=== PATIENT | male | born 1955 | race Caucasian/White ===

== ENCOUNTER 2016-08-27 08:12 | Outpatient (CLI) | payer MEDICARE, OTHER ==
[~2016-08-27] VITALS: Ht 182.9 cm; Wt 117.5 kg
[~2016-08-27 08:12] MED LIST: ALLO100T PO; ASPI-482 PO; CALC667C6 PO; CARV25TA2 PO; CHOL10003 PO; CLON0.2T PO; DOXA8TAB59 PO; FOLI0.8T3 PO; HYDR-2678 PO; HYDR100T24 PO; HYDR25TA PO; INSU100I17 SQ; INSU100I27 SQ; PRAV10TA2 PO; SODI650T PO; TAMS0.4C2 PO
[2016-08-27 08:35] VITALS: BP 152/74
[2016-08-27] MEDS ORDERED: IODIXANOL 320 MG/ML 100 ML VIAL. ONE (08:53)
[2016-08-27] MEDS ORDERED: LIDOCAINE 1% / SOD BICARB 8.4% 20 ML VIAL. IJ ONE (08:53)
[2016-08-27] MEDS ORDERED: IODIXANOL 320MG/ML 50ML VIAL. ONE (08:53)
[2016-08-27] MEDS ORDERED: ZOLP10TA4 PO (09:04)
[2016-08-27] MEDS ORDERED: FURO40TA4 PO (09:04)
[2016-08-27] MEDS ORDERED: CHOL10003 PO (09:04)
[2016-08-27] MEDS ORDERED: INSU100I27 SQ (09:04)
[2016-08-27] MEDS ORDERED: CARV25TA2 PO (09:04)
[2016-08-27] MEDS ORDERED: LISI10TA2 PO (09:04)
[2016-08-27] MEDS ORDERED: HYDR-2762 PO (09:04)
[2016-08-27] MEDS ORDERED: DOXA8TAB59 PO (09:04)
[2016-08-27] MEDS ORDERED: FLUT50DI IH (09:04)
[2016-08-27] MEDS ORDERED: FERR324T5 PO (09:04)
[2016-08-27] MEDS ORDERED: GABA-585 PO (09:04)
[2016-08-27] MEDS ORDERED: PANT40TA5 PO (09:07)
[2016-08-27] MEDS ORDERED: POTA20TA82 PO (09:07)
[2016-08-27] MEDS ORDERED: IODIXANOL 320 MG/ML 100 ML VIAL. IV ONE (09:15)
[2016-08-27] MEDS ORDERED: CONTRAST GIVEN MC PRN (09:15)
[2016-08-27 09:36] VITALS: BP 148/78
--- NOTE | 2016-08-27 09:40 | PDOC1 ---
History and Physical Date of Procedure Date of Admission 08/27/16 Procedure Procedure PDC check Indication Indication ESRD. Poor drainage from PDC Past Medical History Past Medical History See Nursing Pre Procedure PMH Past Surgical History Past Surgical History See Nursing Pre procedure PSH Current Medications Current Medications Current Medications Lidocaine/Sodium Bicarbonate (Buffered Lidocaine 1%) 20 ml STK-MED ONCE IJ ; Start 08/27/16 at 08:53; Stop 08/27/16 at 08:54; Status DC Iodixanol 50 ml 50 ml STK-MED ONCE .ROUTE ; Start 08/27/16 at 08:53; Stop at 08:54; Status DC Heparin Sodium/ Sodium Chloride 500 ml @ As Directed STK-MED ONCE .ROUTE ; Start 08/27/16 at 08:53; Stop 08/27/16 at 08:54; Status DC Iodixanol (Visipaque 320) 100 ml STK-MED ONCE .ROUTE ; Start 08/27/16 at 08:53; Stop 08/27/16 at 08:54; Status DC Heparin Sodium/ Sodium Chloride 1,000 unit 1X ONCE IV Last administered on 08/27 09:21; Start 08/27/16 at 09:15; Stop 08/27/16 at 09:16; Status DC Iodixanol (Visipaque 320) 100 ml 1X ONCE IV Last administered on 08/27/16 09: 22; Start 08/27/16 at 09:15; Stop 08/27/16 at 09:16; Status DC Info (Do NOT chart on this entry -- for MONITORING) 1 each PRN DAILY PRN MC SEE COMMENTS; Start 08/27/16 at 09:15; Stop 08/29/16 at 09:14 Active Scripts Active Reported Potassium Chloride 20 Meq Tablet.er 20 Meq PO DAILY Pantoprazole Sodium 40 Mg Tablet.dr 40 Mg PO DAILY Lisinopril 10 Mg Tablet 0.5 Tab PO DAILY Zolpidem Tartrate 10 Mg Tablet 1 Tab PO QHS Levemir Flextouch (Insulin Detemir) 100 Unit/1 Ml Insuln.pen 80 Unit SQ HS Gabapentin 100 Mg Capsule 300 Mg PO HS Furosemide 40 Mg Tablet 2 Tab PO BID Flovent 50MCG Diskus (Fluticasone Propionate) 50 Mcg Disk.w.dev 50 Mcg IH DAILY Hydrocodone-Apap 7.5-325 (Hydrocodone Bit/Acetaminophen) 1 Each Tablet 1 Tab PO PRN Q6HRS PRN Ferrous Sulfate 324 Mg Tablet.dr 324 Mg PO BID Doxazosin Mesylate 8 Mg Tablet 0.5 Tab PO HS Vitamin D3 (Cholecalciferol (Vitamin D3)) 1,000 Unit Tablet 1 Tab PO DAILY Carvedilol 25 Mg Tablet 1 Tab PO BID Novolog Flexpen (Insulin Aspart) 100 Unit/1 Ml Insuln.pen 16 Unit SQ TIDBFRMEAL Sodium Bicarbonate 650 Mg Tablet 650 Mg PO TIDWMEALS Aspir 81 (Aspirin) 81 Mg Tablet.dr 81 Mg PO DAILY Pravastatin Sodium 10 Mg Tablet 10 Mg PO HS Allopurinol 100 Mg Tablet 100 Mg PO DAILY Allergies Allergies: Coded Allergies: Penicillins (Verified Allergy, Severe, HIVES AND ITCHING, 02/06/15) zinc (Verified Allergy, Severe, HIVES AND ITCHING, 02/06/15) Latex, Natural Rubber (Verified Allergy, Intermediate, FOREMAN AND IRRITATES SKIN, 02/06/15) adhesive (Verified Allergy, Intermediate, FOREMAN AND IRRITATES SKIN, ) PAPER TAPE IS OK amlodipine (Verified Allergy, Unknown, 08/27/16) capsaicin (Verified Allergy, Unknown, 08/27/16) clindamycin (Verified Allergy, Unknown, 08/27/16) insulin glargine (Verified Allergy, Unknown, 08/27/16) reports that it has zinc in it magnesium (Verified Allergy, Unknown, 08/27/16) Physical Exam Vital Signs Vital Signs Date Time Temp Pulse Resp B/P Pulse Ox O2 Delivery O2 Flow Rate FiO2 08/27/16 09:36 74 19 148/78 95 Room Air 08/27/16 08:35 98.3 98.3 Lungs: Clear to auscultation Heart: Regular rate Psych/Mental Status: Mental status NL Assessment Assessment ESRD. Poor drainage from PDC Problems: Plan Plan PDC check/injection +/- guidewire manipulation DORIE MUKHERJEE MD Aug 27, 2016 09:40
--- NOTE | 2016-08-27 09:45 | PDOC ---
Exam Director Commercial Sales Director Commercial Sales [employer]en Fuel Conversion Technician Fuel Conversion Technician B Cates Pre-Procedure Diagnosis Pre-Procedure Diagnosis ESRD. Poor drainage from PDC Post-Procedure Diagnosis Post-Procedure Diagnosis Same. Patent PDC, coiled within left hemipelvis, lateral to recto-vesical space. Procedure Performed Procedure Performed PDC check/injection. Guidewire repositioning of PDC loop into recto-vesical space. Type of Anesthesia Type of Anesthesia None Condition of Patient Condition of Patient Stable. No apparent complication. Disposition Disposition Home from [facility]. F/u with Renal. OK to use PDC. DORIE MUKHERJEE MD Aug 27, 2016 09:45
--- NOTE | 2016-08-27 16:07 | RAD ---
Fluoroscopy guided peritoneal dialysis catheter check/injection/guidewire manipulation Indication: 60-year-old male with end stage renal disease, and with suboptimal drainage from his indwelling peritoneal dialysis catheter. Fluoroscopy time: 2.7 minutes. A total of 4 fluoroscopic spot images were obtained. Kerma-area Product: 85 Gycm2 Contrast material: 40 cc Visipaque 320 Sterility: All elements of maximal sterile barrier technique, including the use of a cap, mask, sterile gown, sterile gloves, large sterile sheet, appropriate hand hygiene, and 2% chlorhexidine for cutaneous antisepsis (or acceptable alternative antiseptic per current guidelines) were utilized. Procedure: Informed consent was obtained from the patient. He was placed supine on the angiography table. Preliminary fluoroscopic evaluation revealed an intact, indwelling peritoneal dialysis catheter, with its tip coiled within left lateral hemipelvis. Using aseptic technique, a small amount of heparinized saline was easily injected through the peritoneal dialysis catheter, without resistance. A total of 40 cc Visipaque was then easily injected through the peritoneal dialysis catheter. Free flow of injected contrast material was demonstrated, predominantly toward mid pelvis rectovesical space. An additional 40 cc of heparinized saline was then injected through the PDC. Attempted aspiration of the Visipaque/saline was suboptimal. A [employer] advantage guidewire was then advanced through the peritoneal dialysis catheter utilizing aseptic technique and fluoroscopic guidance. This resulted in displacement of the peritoneal dialysis catheter loop from left lateral hemipelvis rectovesical space, with episcopal of satisfactory catheter drainage. Patient tolerated the procedure well without apparent complication. Impression: Successful, uneventful fluoroscopy guided peritoneal dialysis catheter check, contrast injection, and guidewire repositioning, as described.
== END 2016-08-27 09:50 | disposition home or self-care (01) ==
LOC: INTRAD 08:12
PROVIDERS: ATTEND Internal Medicine Nephrology
DX: N18.6 End stage renal disease (principal); I50.9 Heart failure, unspecified; E78.00 Pure hypercholesterolemia, unspecified; I10 Essential (primary) hypertension; N28.9 Disorder of kidney and ureter, unspecified; M19.90 Unspecified osteoarthritis, unspecified site; E11.9 Type 2 diabetes mellitus without complications; D64.9 Anemia, unspecified
CPT/HCPCS: 49400; 74190

== ENCOUNTER 2017-04-22 14:00 | Inpatient (IN) | payer MEDICARE, OTHER ==
[~2017-04-22] VITALS: Ht 182.9 cm; Wt 126.1 kg
[2017-04-22] VITALS (13 sets, daily range): BP systolic 144–179; BP diastolic 62–172
[~2017-04-22 14:00] MED LIST changes: +CALC667T PO; +CRAN500C6 PO; +FERR324T5 PO; +FLUT50DI IH; +FURO40TA4 PO; +GABA-585 PO; +HYDR-2762 PO; +HYDR25CA PO; +KRIL500C PO; +LISI10TA2 PO; +PANT40TA5 PO; +POTA20TA82 PO; +UBID400C3 PO; +ZOLP10TA4 PO
--- NOTE | 2017-04-22 15:03 | PDOC2 ---
CONSULT Date of Consult Date of Consult DATE: 04/22/17 TIME: 14:52 Reason for Consult Reason for Consult: ESRD on PD Referring Physician Referring Physician: Dr Arauz Identification/Chief Complaint Chief Complaint none from pt - Bleeding Peptic Ulcer Problems: Source Source: Chart review History of Present Illness Reason for Visit: as dictated Past Medical History Cardiovascular: CAD, HTN, [place] Pulmonary: COPD Renal/: Chronic renal failure Endocrine: Diabetes Past Surgical History Past Surgical History: CABG, No pertinent history Family History Family History: Hypertension Social History ALCOHOL: none Drugs: None Lives: with Family Current Medications Current Medications Current Medications Midazolam HCl (Versed) 2 mg PRN 1X PRN IV PRIOR TO PROCEDURE; Start 04/22/17 at 11:15; Stop 04/23/17 at 11:14 Fentanyl Citrate (Fentanyl 2ml Vial) 25 mcg PRN Q5MIN PRN IV X 2 DOSES FOR PAIN ; Start 04/22/17 at 11:15; Stop 04/23/17 at 11:14 Fentanyl Citrate (Fentanyl 2ml Vial) 50 mcg PRN Q5MIN PRN IV X 2 DOSES FOR PAIN ; Start 04/22/17 at 11:15; Stop 04/23/17 at 11:14 Sodium Chloride 1,000 ml @ 125 mls/hr Q8H IV Last administered on 04/22/17t 11 :08; Start 04/22/17 at 11:08; Stop 04/22/17 at 23:07 Lidocaine HCl 2 ml 1X PRN PRN ID IV START; Start 04/22/17 at 11:15; Stop at 11:14 Propofol 20 ml @ As Directed STK-MED ONCE IV ; Start 04/22/17 at 11:56; Stop at 11:57; Status DC Epinephrine HCl (EPINEPHrine SYRINGE) 1 mg STK-MED ONCE .ROUTE ; Start 04/22/17 at 12:10; Stop 04/22/17 at 12:11; Status DC Propofol 20 ml @ As Directed STK-MED ONCE IV ; Start 04/22/17 at 12:16; Stop at 12:17; Status DC Active Scripts Active Reported Vistaril (Hydroxyzine Pamoate) 25 Mg Capsule 1 Cap PO PRN DAILY PRN Co Q-10 (Ubidecarenone) 400 Mg Capsule 400 Mg PO BID Nephro-Harsha Tablet (Folic Acid/Vitamin B Comp W-C) 0.8 Mg Tablet Unknown Dose PO HS Calcium Acetate 667 Mg Tablet 667 Mg PO BID Tamsulosin Hcl 0.4 Mg Cap.er.24h 0.4 Mg PO DAILY Sodium Bicarbonate 650 Mg Tablet 650 Mg PO TIDBFRMEAL Krill Oil 500 Mg Capsule 500 Mg PO DAILY Cranberry (Cranberry Extract) 500 Mg Capsule 500 Mg PO DAILY Potassium Chloride 20 Meq Tablet.er 20 Meq PO BID Pantoprazole Sodium 40 Mg Tablet.dr 40 Mg PO DAILY Lisinopril 10 Mg Tablet 0.5 Tab PO DAILY Zolpidem Tartrate 10 Mg Tablet 1 Tab PO QHS Levemir Flextouch (Insulin Detemir) 100 Unit/1 Ml Insuln.pen 80 Unit SQ HS Gabapentin 100 Mg Capsule 300 Mg PO HS Furosemide 40 Mg Tablet 2 Tab PO BID Hydrocodone-Apap 7.5-325 (Hydrocodone Bit/Acetaminophen) 1 Each Tablet 1 Tab PO PRN Q6HRS PRN Ferrous Sulfate 324 Mg Tablet.dr 324 Mg PO BID Doxazosin Mesylate 8 Mg Tablet 0.5 Tab PO HS Vitamin D3 (Cholecalciferol (Vitamin D3)) 1,000 Unit Tablet 1 Tab PO DAILY Carvedilol 25 Mg Tablet 1 Tab PO BID Novolog Flexpen (Insulin Aspart) 100 Unit/1 Ml Insuln.pen 16 Unit SQ TIDBFRMEAL Sodium Bicarbonate 650 Mg Tablet 650 Mg PO TIDWMEALS Aspir 81 (Aspirin) 81 Mg Tablet.dr 81 Mg PO DAILY Pravastatin Sodium 10 Mg Tablet 10 Mg PO HS Allopurinol 100 Mg Tablet 100 Mg PO DAILY Allergies Allergies: Coded Allergies: Penicillins (Verified Allergy, Severe, HIVES AND ITCHING., 04/22/17) HAS TOLERATED AMOXICILLIN, ZOSYN zinc (Verified Allergy, Severe, HIVES AND ITCHING, 04/14/17) Latex, Natural Rubber (Verified Allergy, Intermediate, FOREMAN AND IRRITATES SKIN, 04/22/17) adhesive (Verified Allergy, Intermediate, FOREMAN AND IRRITATES SKIN, ) PAPER TAPE IS OK amlodipine (Verified Allergy, Intermediate, 04/22/17) capsaicin (Verified Allergy, Intermediate, 04/22/17) clindamycin (Verified Allergy, Intermediate, 04/22/17) insulin glargine (Verified Allergy, Intermediate, 8/29/17) reports that it has zinc in it ROS Review of System unable to be obtained from pt due to min sedated state (post EGD) and while trached on the Vent (besides ? Anoxic encephalopahty) Physical Exam Physical Exam General Appearance: barely Awake not fully Alert Oriented x 0 In no Distress Eyes: VIsion Unchanged Conjunctiva Normal EN: No EN Drainage Mucous Memb. moist Neck: no JVD no JVP Supple no Thyromegaly - Trached CVS: S1 S2 ? Murmur No Gallop No Rub + Edema Resp: no Rales no Rhonchi no Acc. Muscle use GI: BS +ve NO Bruit Non Tender not Distended : no CVA tenderness; no Suprapubic Tenderness SKIN: no visible Rashes Breast Exam deferred Mu.Sk: min active ROM (does not follow commands) min Muscle Atrophy in hands Heme: Unable to palpate Obvious LAD no Splenomegaly NEURO: Very decreased Strength and Tone; does not follow commands Psych: Unable to assess in current state of mind Vital Signs Vital Signs Date Time Temp Pulse Resp B/P (MAP) Pulse Ox O2 Delivery O2 Flow Rate FiO2 04/22/17 13:10 85 16 222/89 100 Ventilator 04/22/17 12:44 99.1 99.1 Assessment & Plan ESRD.: Start CAPD: 2.5% Dianeal Q4 Hrs, 2.0 L fills Nutrition - TPN for now until GUT can be used Anemia: Epogen Transfuse as needed. ? some edema - challenge Dry wt with fluid removal Malig HTN: Current BP meds reviewed. See orders for changes. prn Hydralazine Bone & Mineral: follow phos -and alter in TPN as needed Discussed Plan of Care and prognosis etc. at length with family. Labs Labs Laboratory Tests Test 04/22/17 13:03 Glucose (Fingerstick) 210 mg/dL (70-99) Laboratory Tests Test 04/22/17 13:03 Glucose (Fingerstick) 210 mg/dL (70-99) MIREYA HART MD Apr 22, 2017 15:03
[2017-04-22] MEDS ORDERED: ISOS20TA2 PEG (15:44)
[2017-04-22] MEDS ORDERED: CALC500T PEG ×2 (15:44→15:55)
[2017-04-22] MEDS ORDERED: FAMO20TA5 PO (15:44)
[2017-04-22] MEDS ORDERED: ASPI300S RC (15:44)
[2017-04-22] MEDS ORDERED: VITA1CAP PEG (15:44)
[2017-04-22] MEDS ORDERED: ALLO100T PO (15:44)
[2017-04-22] MEDS ORDERED: CHLO15MO2 PO (15:44)
[2017-04-22] MEDS ORDERED: MICO113C TP (15:44)
[2017-04-22] MEDS ORDERED: ATOR10TA60 PEG ×2 (15:44→15:55)
[2017-04-22] MEDS ORDERED: FAMO20TA5 PEG (15:55)
[2017-04-22] MEDS ORDERED: ASPI325T8 PO (15:55)
[2017-04-22] MEDS ORDERED: ISOS60TA2 PO (15:55)
[2017-04-22] MEDS: PANTOPRAZOLE SODIUM IV 80 MG in IV NORMAL SALINE 100ML 100 ML IV SCH (16:14)
[2017-04-22 16:16] LABS: HEMOGLOBIN 7.1 g/dL (13.0-17.5); RED BLOOD COUNT 2.17 x10^6/uL (4.30-5.70); RED CELL DISTRIBUTION WIDTH 16.4 % (11.5-14.5); WHITE BLOOD COUNT 8.7 x10^3/uL (4.0-11.0)
[2017-04-22 16:22] LABS: HEMATOCRIT 20.5 % (39.0-53.0)
--- NOTE | 2017-04-22 16:25 | PDOC2 ---
GI CONSULT Reason For Consult: UGI bleed. HPI: HPI: 61 y/o male known to us. Was in [facility] after hospitalization earlier this month. Apparently some evidence for UGI bleeding (exact history unknown) and brought here for EGD earlier today with Dr. Madsen. A bleeding site was found with clot/some oozing of blood on the posterior wall of ~the mid-gastric body. I was present for part of the procedure, but not all. Pictures taken do not show the definite nature of the lesion. Clipping was attempted, but not felt to be successful due to difficult position of the lesion. Epinephrine injections were done. Currently NG is draining thin, lightly hematin-stained fluid w/o blood or coffee-ground material. At this time, patient does not respond to exam or verbal stimuli. There is a history of chronic anemia with historically negative EGD/colonoscopy done at a [facility]. No GB, liver or pancreatic history. Information re: recent bowel function not available. Believe he has been on tube feedings at [facility]; not a PEG candidate due to PD for ESRD. At [facility], receiving both H2RA and PPI. Last hemoglobin there upper 6's and received 2 units of PRBC's--no hemoglobin done since. Currently hemodynamically stable. 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 Toe amputation for osteomyelitis, CABG, PD catheter insertion, AV fistula. FH: Family History: No pertinent hx Social History: ALCOHOL: none Drugs: None ROS: Cannot currently obtain. Vitals: Vitals: Pending here, but stable in GI lab. Labs: Labs: Pending. Allergies: Coded Allergies: Penicillins (Verified Allergy, Severe, HIVES AND ITCHING., 04/22/17) HAS TOLERATED AMOXICILLIN, ZOSYN zinc (Verified Allergy, Severe, HIVES AND ITCHING, 04/14/17) Latex, Natural Rubber (Verified Allergy, Intermediate, FOREMAN AND IRRITATES SKIN, 04/22/17) adhesive (Verified Allergy, Intermediate, FOREMAN AND IRRITATES SKIN, ) PAPER TAPE IS OK amlodipine (Verified Allergy, Intermediate, 04/22/17) capsaicin (Verified Allergy, Intermediate, 04/22/17) clindamycin (Verified Allergy, Intermediate, 04/22/17) insulin glargine (Verified Allergy, Intermediate, 04/22/17) reports that it has zinc in it Medications: Multiple at [facility], reviewed. PE: GEN: Eyes closed, in no apparent distress. HEENT: Atraumatic LUNGS: CTAB HEART: RRR, no murmurs. PPM right supraclavicular area. ABD: NABS, S/ND/NT, no masses PD catheter. EXTREMITY: No edema SKIN: No rashes, no jaundice NEURO/PSYCH: not responsive to exam or verbally. A/P: A/P: IMP: Recent UGI bleed from gastric lesion, exact nature unclear but attempt at endotherapy less than perfect due to difficult location. Ulcer possible as would be a vascular lesion (AVM or Dieulafoy's). Chronic anemia. REC: PPI drip. Would not give concomitant H2-ave as effects are NOT synergistic, in fact the h2-ave may lessen the effect of the PPI. Check hemoglobin now. Monitor for re-bleeding; if re-bleeds, would favor IR attempting embolization +/- re-endoscopy if not too brisk a bleed. Likely not a surgical candidate, but consider surgical opinion. --other pending hospital course. Thanks. QUINTON WHITLOCK MD Apr 22, 2017 16:25
[2017-04-22 17:39] LABS: ALBUMIN 1.9 g/dL (3.4-5.0); ALBUMIN/GLOBULIN RATIO 0.5 (1.0-1.7); CREATININE 12.4 mg/dL (0.7-1.3); GFR 4.1; POTASSIUM 3.6 mmol/L (3.5-5.1); TOTAL BILIRUBIN 0.5 mg/dL (0.2-1.0); TOTAL PROTEIN 5.6 g/dL (6.4-8.2)
[2017-04-22] MEDS ORDERED: DIALYSIS PATIENT. MC PRN (18:45)
[2017-04-22] MEDS ORDERED: MAGNESIUM SULFATE 2GM 50 ML IV PRN (18:45)
[2017-04-22] MEDS ORDERED: POTASSIUM CHLORIDE 20MEQ 50 ML IV PRN ×2 (18:45)
[2017-04-22] MEDS: TPN PER PHARMACY MC PRN (19:37)
[2017-04-22] MEDS ORDERED: POTASSIUM CHLORIDE 20MEQ 50 ML IV ONE (20:00)
[2017-04-22] MEDS ORDERED: DEXTROSE 70% IV SCH ×9 (22:00)
[2017-04-22] MEDS ORDERED: TOTAL PARENTERAL NUTRITION IV SCH ×9 (22:00)
[2017-04-22] MEDS ORDERED: AMINO ACID IV SCH ×9 (22:00)
[2017-04-22] MEDS ORDERED: [UNRECOGNIZED DRUG - OTHER] IV SCH ×9 (22:00)
[2017-04-23] VITALS (25 sets, daily range): BP systolic 120–189; BP diastolic 54–86
[2017-04-23] MEDS: PANTOPRAZOLE SODIUM IV 80 MG in IV NORMAL SALINE 100ML 100 ML IV SCH ×3 (01:23→21:43)
[2017-04-23] MEDS: hydrALAZINE 20 MG/ML VIAL. IVP PRN ×3 (02:28→07:33)
--- NOTE | 2017-04-23 02:33 | ACF ---
Admission Forms Criteria GASTROINTESTINAL BLEEDING, UPPER Clinical Indications for Admission to Inpatient Care ( [place]/check or initial the applicable condition/criteria) Admission is indicated for 1 or more of the following(1)(2)(3)(4)(5)(6): [X] I. Active bleeding (eg, fresh voluminous blood in emesis or nasogastric aspirate) II. High-risk endoscopic features (arterial bleeding, adherent clot, nonbleeding visible vessel, varices, flat red spots, ulcer size greater than 2 cm, or portal hypertensive gastropathy) III. Severe liver disease (eg, cirrhosis) IV. Significant active comorbid disease (e.g. symptomatic heart failure, COPD) V. Previous aortic graft placement or known aortic aneurysm . Coagulopathy (eg advanced liver disease, irreversible anticoagulation therapy) VII. Syncope VIII. Associated conditions requiring hospitalization (e.g., perforation, obstruction from ulcer) IX. Inpatient admission required rather than observation care (Also use Gastrointestinal Bleeding, Upper: Observation Care as appropriate) because of 1 or more of the following (7)(8) : a) Hemodynamic instability that is severe or persistent b) Anemia requiring inpatient admission as indicated by ALL of the followin) Presence of significant clinical finding indicated by 1 or more of the following: A. Tachycardia for age B. Orthostatic vital sign changes C. Cognitive impairment D. Heart failure E. Chest pain F. Exertional dyspnea G. Other findings suggesting inadequate perfusion (eg, peripheral or myocardial ischemia, end organ dysfunction) 2) Initial (eg, emergency department, observation care ) treatment with transfusion or volume replacement is judged inappropriate (due to severity of the finding) or has been ineffective c) Severe pain requiring acute inpatient management d) High-risk low platelet count e) IV fluid to replace significant ongoing losses (greater than 3 L/m2 per day) f) Immediate inpatient surgery g) Other condition, treatment or monitoring requiring inpatient admission Extended stay beyond goal length of stay may be needed for(1))(3)(4)(5)(18): a) Emergency surgery(19)(20) b) Persistent coagulation abnormalities(9) c) Recurrent, obscure, or persistent bleeding or continued Hemodynamic instability(2)(5)(9)(19)(20)(21)(22)(23)(24) d) Associated conditions requiring surgery (eg, perforated gastric ulcer, gastric outlet obstruction, aortoentric fistula) e) Active comorbidities (eg, renal insufficiency, malignancy, heart failure , liver disease,respiratory failure, malnutrition) (29)(30)(31) The original [facility] content created by [facility] has been revised. The portions of the content which have been revised are identified through the use of italic text or in bold, and [facility] has neither reviewed nor approved the modified material. All other unmodified content is copyright [facility]. Please see references footnoted in the original [facility] edition 2017 Admission Criteria Met?: Yes DAMIAN ANDRADE Apr 23, 2017 02:33 VINITA GARDUNO MD Apr 23, 2017 08:01
[2017-04-23 06:51] LABS: CALCIUM 7.6 mg/dL (8.5-10.1); CREATININE 12.6 mg/dL (0.7-1.3); GFR 4.1; POTASSIUM 3.6 mmol/L (3.5-5.1)
[2017-04-23] MEDS ORDERED: POTASSIUM CHLORIDE 20MEQ 50 ML IV ONE (07:00)
[2017-04-23 08:55] LABS: HCO3 ABG 22 mmol/L (21-28); PCO2 ABG 42 mmHg (35-46); PH ABG 7.34 (7.35-7.45); PO2 ABG 116 mmHg (65-108); SAT O2 ABG 97 % (92-99)
[2017-04-23 08:57] LABS: FIO2 ABG 35
[2017-04-23 09:06] LABS: MAGNESIUM 1.8 mg/dL (1.8-2.4); PHOSPHORUS 6.4 mg/dL (2.6-4.7)
--- NOTE | 2017-04-23 09:44 | PDOC ---
PROGRESS NOTES Chief Complaint Chief Complaint UGIB ASSESSMENT AND PLAN: 1. UGIB: s/p EGD 04/22 with ulcer, injected/clipped. 2. Anemia: acute bleed. s/p mult transfusions. Hgb stable since EGD in 7 range. monitor 3. Anoxic brain injury: waxing and waning status, following commands some. 4. HTN: poorly controlled. 5. DM2: requiring adjustment with TPN. levemir 6. ESRD: pn PD. [place] following 7. COPD: no acute issues. nebs PRN 8. CAD: no acute issues. cont cardiac meds 9. Foot ulcers: wound care consult; continue merrem History of Present Illness History of Present Illness nonverbal. following commands to squeeze ands bilat, no toe wiggle Vitals Vitals Vital Signs Date Time Temp Pulse Resp B/P (MAP) Pulse Ox O2 Delivery O2 Flow Rate FiO2 04/23/17 09:00 97 18 170/85 (113) 100 Ventilator 04/23/17 08:00 99.1 99.1 Physical Exam General: Alert, No acute distress Heart: Regular rate Lungs: Clear, Crackles Abdomen: Normal bowel sounds, No tenderness Extremities: No edema Skin: No rashes Labs LABS Laboratory Tests Test 04/22/17 16:05 04/22/17 17:05 04/22/17 22:00 04/23/17 00:21 White Blood Count 8.7 x10^3/uL (4.0-11.0) Red Blood Count 2.17 x10^6/uL (4.30-5.70) Hemoglobin 7.1 g/dL (13.0-17.5) 7.8 g/dL (13.0-17.5) Hematocrit 20.5 % (39.0-53.0) Mean Corpuscular Volume 94 fL (79-100) Mean Corpuscular Hemoglobin 33 pg (25-35) Mean Corpuscular Hemoglobin Concent 34 g/dL (31-37) Red Cell Distribution Width 16.4 % (11.5-14.5) Platelet Count 112 x10^3/uL (140-400) Sodium Level 134 mmol/L (136-145) Potassium Level 3.6 mmol/L (3.5-5.1) Chloride Level 94 mmol/L (98-107) Carbon Dioxide Level 24 mmol/L (21-32) Anion Gap 16 (6-14) Blood Urea Nitrogen 115 mg/dL (8-26) Creatinine 12.4 mg/dL (0.7-1.3) Estimated GFR (Cockcroft-Gault) 4.1 BUN/Creatinine Ratio 9 (6-20) Glucose Level 154 mg/dL (70-99) Calcium Level 8.0 mg/dL (8.5-10.1) Total Bilirubin 0.5 mg/dL (0.2-1.0) Aspartate Amino Transf (AST/SGOT) 19 U/L (15-37) Alanine Aminotransferase (ALT/SGPT) 14 U/L (16-63) Alkaline Phosphatase 68 U/L (46-116) Total Protein 5.6 g/dL (6.4-8.2) Albumin 1.9 g/dL (3.4-5.0) Albumin/Globulin Ratio 0.5 (1.0-1.7) Glucose (Fingerstick) 201 mg/dL (70-99) Test 04/23/17 05:45 04/23/17 08:00 Hemoglobin 7.4 g/dL (13.0-17.5) Sodium Level 133 mmol/L (136-145) Potassium Level 3.6 mmol/L (3.5-5.1) Chloride Level 93 mmol/L (98-107) Carbon Dioxide Level 24 mmol/L (21-32) Anion Gap 16 (6-14) Blood Urea Nitrogen 115 mg/dL (8-26) Creatinine 12.6 mg/dL (0.7-1.3) Estimated GFR (Cockcroft-Gault) 4.1 Glucose Level 315 mg/dL (70-99) Calcium Level 7.6 mg/dL (8.5-10.1) Phosphorus Level 6.4 mg/dL (2.6-4.7) Magnesium Level 1.8 mg/dL (1.8-2.4) Triglycerides Level 81 mg/dL (0-150) O2 Saturation 97 % (92-99) Arterial Blood pH 7.34 (7.35-7.45) Arterial Blood pCO2 at Patient Temp 42 mmHg (35-46) Arterial Blood pO2 at Patient Temp 116 mmHg (65-108) Arterial Blood HCO3 22 mmol/L (21-28) Arterial Blood Base Excess -4 mmol/L (-3-3) FiO2 35 VINITA GARDUNO MD Apr 23, 2017 09:44
--- NOTE | 2017-04-23 09:56 | PDOC ---
Objective: Objective: D/w RN - NG output (~300cc), no concern for bleeding. On TPN. Vital Signs: Vital Signs Date Time Temp Pulse Resp B/P (MAP) Pulse Ox O2 Delivery O2 Flow Rate FiO2 04/23/17 09:00 97 18 170/85 (113) 100 Ventilator 04/23/17 08:00 99.1 99.1 Labs: Laboratory Tests Test 04/22/17 16:05 04/22/17 17:05 04/22/17 22:00 04/23/17 00:21 White Blood Count 8.7 x10^3/uL Red Blood Count 2.17 x10^6/uL Hemoglobin 7.1 g/dL 7.8 g/dL Hematocrit 20.5 % Mean Corpuscular Volume 94 fL Mean Corpuscular Hemoglobin 33 pg Mean Corpuscular Hemoglobin Concent 34 g/dL Red Cell Distribution Width 16.4 % Platelet Count 112 x10^3/uL Sodium Level 134 mmol/L Potassium Level 3.6 mmol/L Chloride Level 94 mmol/L Carbon Dioxide Level 24 mmol/L Anion Gap 16 Blood Urea Nitrogen 115 mg/dL Creatinine 12.4 mg/dL Estimated GFR (Cockcroft-Gault) 4.1 BUN/Creatinine Ratio 9 Glucose Level 154 mg/dL Calcium Level 8.0 mg/dL Total Bilirubin 0.5 mg/dL Aspartate Amino Transf (AST/SGOT) 19 U/L Alanine Aminotransferase (ALT/SGPT) 14 U/L Alkaline Phosphatase 68 U/L Total Protein 5.6 g/dL Albumin 1.9 g/dL Albumin/Globulin Ratio 0.5 Glucose (Fingerstick) 201 mg/dL Test 04/23/17 05:45 04/23/17 08:00 Hemoglobin 7.4 g/dL Sodium Level 133 mmol/L Potassium Level 3.6 mmol/L Chloride Level 93 mmol/L Carbon Dioxide Level 24 mmol/L Anion Gap 16 Blood Urea Nitrogen 115 mg/dL Creatinine 12.6 mg/dL Estimated GFR (Cockcroft-Gault) 4.1 Glucose Level 315 mg/dL Calcium Level 7.6 mg/dL Phosphorus Level 6.4 mg/dL Magnesium Level 1.8 mg/dL Triglycerides Level 81 mg/dL O2 Saturation 97 % Arterial Blood pH 7.34 Arterial Blood pCO2 at Patient Temp 42 mmHg Arterial Blood pO2 at Patient Temp 116 mmHg Arterial Blood HCO3 22 mmol/L Arterial Blood Base Excess -4 mmol/L FiO2 35 PE: GEN: NAD LUNGS: trach/vent HEART: RRR ABD: BS+, soft, NG w/ bilious output NEURO/PSYCH: awake A/P: UGI bleed from gastric lesion -s/p EGD w/ endotherapy by Dr. Madsen 04/22/17 Chronic anemia -Hgb stable in 7s -- Continue PPI drip. Consider repeating EGD tomorrow. BRENDA HERNDON Apr 23, 2017 09:56
--- NOTE | 2017-04-23 10:13 | CONS ---
DATE OF CONSULTATION: 04/22/2017 PRIMARY PHYSICIAN: Dr. Jaeger. REASON FOR CONSULTATION: ESRD, on peritoneal dialysis. HISTORY OF PRESENT ILLNESS: The patient is a 61-year-old gentleman who was at [facility] until recently. He was noted to have had 2 episodes of cardiac arrest and being on the ventilator and eventually was transferred to [facility] after placement of a tracheostomy. He was noted to have signs of possible GI bleed with coffee grounds and has NG tube as well as worsening BUN. This was in the setting of peritoneal dialysis and TPN. He was suspected to have an upper GI bleed and was brought to [place] for an endoscopy. While here, he was noted to have a bleeding peptic ulcer and is now admitted to the ICU for further evaluation. We were asked to see him for continued PD needs. He remains on the vent via trach. He is not very arousable, does open his eyes though. Does not answer questions. It is unclear to me if his current level of encephalopathy is associated with post-procedural state versus associated with previous anoxic injury. For further details, see electronic records. MIREYA HART MD DR: REFUGIO/galen JOB#: [id number] / [id number]
--- NOTE | 2017-04-23 11:47 | RAD ---
Exam performed: One view chest. History: Respiratory distress, ventilator protocol. Date of service: 04/23/17. Comparison: Single chest from 04/16/15. Single AP semiupright portable view chest findings: Heart size is within limits of normal for semiupright position. Tracheostomy tube, feeding tube and bipolar pacemaker. Previous median sternotomy. The lungs are clear. No pleural effusion or pneumothorax. Impression: Improving central vascular congestion.
--- NOTE | 2017-04-23 11:50 | RAD ---
Exam performed: Single view abdomen KUB. History: NG tube placement. Date of service: 04/23/17. Comparison: KUB from 04/13/17. Single supine portable view abdomen findings: The tip of the nasogastric tube is in the stomach, however the sideholes may be at or just below the GE junction. Nonspecific bowel gas pattern. Impression: Tip of nasogastric tube is in the stomach. This may be advanced approximately 5 to 6 cm for better positioning.
--- NOTE | 2017-04-23 13:20 | PDOC ---
Dialysis Progress Note Dialysis Note Dialysis Note Seen on CAPDs, tolerating treatment Okay for now Vitals as documented Sedated and intubated Neck: No JVD or JVP Chest: CTA Stanislaw Heart: S1 S2 sys murmur Abdomen - Soft NTND Extremities - + Edema ESRD: CAPD as ordered - BUN Creat remain ^ed and Alb is low - may need to go back to HD for now Treatment plan reviewed and discussed with medical sonographer Vitals Vital Signs Vital Signs Date Time Temp Pulse Resp B/P (MAP) Pulse Ox O2 Delivery O2 Flow Rate FiO2 04/23/17 12:00 98.5 96 22 140/54 (82) 99 Ventilator 98.5 Labs Last Labs Laboratory Tests Test 04/22/17 16:05 04/22/17 17:05 04/22/17 22:00 04/23/17 00:21 White Blood Count 8.7 x10^3/uL (4.0-11.0) Red Blood Count 2.17 x10^6/uL (4.30-5.70) Hemoglobin 7.1 g/dL (13.0-17.5) 7.8 g/dL (13.0-17.5) Hematocrit 20.5 % (39.0-53.0) Mean Corpuscular Volume 94 fL (79-100) Mean Corpuscular Hemoglobin 33 pg (25-35) Mean Corpuscular Hemoglobin Concent 34 g/dL (31-37) Red Cell Distribution Width 16.4 % (11.5-14.5) Platelet Count 112 x10^3/uL (140-400) Sodium Level 134 mmol/L (136-145) Potassium Level 3.6 mmol/L (3.5-5.1) Chloride Level 94 mmol/L (98-107) Carbon Dioxide Level 24 mmol/L (21-32) Anion Gap 16 (6-14) Blood Urea Nitrogen 115 mg/dL (8-26) Creatinine 12.4 mg/dL (0.7-1.3) Estimated GFR (Cockcroft-Gault) 4.1 BUN/Creatinine Ratio 9 (6-20) Glucose Level 154 mg/dL (70-99) Calcium Level 8.0 mg/dL (8.5-10.1) Total Bilirubin 0.5 mg/dL (0.2-1.0) Aspartate Amino Transf (AST/SGOT) 19 U/L (15-37) Alanine Aminotransferase (ALT/SGPT) 14 U/L (16-63) Alkaline Phosphatase 68 U/L (46-116) Total Protein 5.6 g/dL (6.4-8.2) Albumin 1.9 g/dL (3.4-5.0) Albumin/Globulin Ratio 0.5 (1.0-1.7) Glucose (Fingerstick) 201 mg/dL (70-99) Test 04/23/17 05:45 04/23/17 08:00 Hemoglobin 7.4 g/dL (13.0-17.5) Sodium Level 133 mmol/L (136-145) Potassium Level 3.6 mmol/L (3.5-5.1) Chloride Level 93 mmol/L (98-107) Carbon Dioxide Level 24 mmol/L (21-32) Anion Gap 16 (6-14) Blood Urea Nitrogen 115 mg/dL (8-26) Creatinine 12.6 mg/dL (0.7-1.3) Estimated GFR (Cockcroft-Gault) 4.1 Glucose Level 315 mg/dL (70-99) Calcium Level 7.6 mg/dL (8.5-10.1) Phosphorus Level 6.4 mg/dL (2.6-4.7) Magnesium Level 1.8 mg/dL (1.8-2.4) Triglycerides Level 81 mg/dL (0-150) O2 Saturation 97 % (92-99) Arterial Blood pH 7.34 (7.35-7.45) Arterial Blood pCO2 at Patient Temp 42 mmHg (35-46) Arterial Blood pO2 at Patient Temp 116 mmHg (65-108) Arterial Blood HCO3 22 mmol/L (21-28) Arterial Blood Base Excess -4 mmol/L (-3-3) FiO2 35 Laboratory Tests Test 04/22/17 16:05 04/22/17 17:05 04/22/17 22:00 04/23/17 00:21 White Blood Count 8.7 x10^3/uL (4.0-11.0) Red Blood Count 2.17 x10^6/uL (4.30-5.70) Hemoglobin 7.1 g/dL (13.0-17.5) 7.8 g/dL (13.0-17.5) Hematocrit 20.5 % (39.0-53.0) Mean Corpuscular Volume 94 fL (79-100) Mean Corpuscular Hemoglobin 33 pg (25-35) Mean Corpuscular Hemoglobin Concent 34 g/dL (31-37) Red Cell Distribution Width 16.4 % (11.5-14.5) Platelet Count 112 x10^3/uL (140-400) Sodium Level 134 mmol/L (136-145) Potassium Level 3.6 mmol/L (3.5-5.1) Chloride Level 94 mmol/L (98-107) Carbon Dioxide Level 24 mmol/L (21-32) Anion Gap 16 (6-14) Blood Urea Nitrogen 115 mg/dL (8-26) Creatinine 12.4 mg/dL (0.7-1.3) Estimated GFR (Cockcroft-Gault) 4.1 BUN/Creatinine Ratio 9 (6-20) Glucose Level 154 mg/dL (70-99) Calcium Level 8.0 mg/dL (8.5-10.1) Total Bilirubin 0.5 mg/dL (0.2-1.0) Aspartate Amino Transf (AST/SGOT) 19 U/L (15-37) Alanine Aminotransferase (ALT/SGPT) 14 U/L (16-63) Alkaline Phosphatase 68 U/L (46-116) Total Protein 5.6 g/dL (6.4-8.2) Albumin 1.9 g/dL (3.4-5.0) Albumin/Globulin Ratio 0.5 (1.0-1.7) Glucose (Fingerstick) 201 mg/dL (70-99) Test 04/23/17 05:45 04/23/17 08:00 Hemoglobin 7.4 g/dL (13.0-17.5) Sodium Level 133 mmol/L (136-145) Potassium Level 3.6 mmol/L (3.5-5.1) Chloride Level 93 mmol/L (98-107) Carbon Dioxide Level 24 mmol/L (21-32) Anion Gap 16 (6-14) Blood Urea Nitrogen 115 mg/dL (8-26) Creatinine 12.6 mg/dL (0.7-1.3) Estimated GFR (Cockcroft-Gault) 4.1 Glucose Level 315 mg/dL (70-99) Calcium Level 7.6 mg/dL (8.5-10.1) Phosphorus Level 6.4 mg/dL (2.6-4.7) Magnesium Level 1.8 mg/dL (1.8-2.4) Triglycerides Level 81 mg/dL (0-150) O2 Saturation 97 % (92-99) Arterial Blood pH 7.34 (7.35-7.45) Arterial Blood pCO2 at Patient Temp 42 mmHg (35-46) Arterial Blood pO2 at Patient Temp 116 mmHg (65-108) Arterial Blood HCO3 22 mmol/L (21-28) Arterial Blood Base Excess -4 mmol/L (-3-3) FiO2 35 MIREYA HART MD Apr 23, 2017 13:20
--- NOTE | 2017-04-23 13:43 | PDOC ---
PULMONARY PROGRESS NOTES Vitals Vital Signs Date Time Temp Pulse Resp B/P (MAP) Pulse Ox O2 Delivery O2 Flow Rate FiO2 04/23/17 12:00 98.5 96 22 140/54 (82) 99 Ventilator 98.5 HEENT: Other Labs Laboratory Tests Test 04/22/17 16:05 04/22/17 17:05 04/22/17 22:00 04/23/17 00:21 White Blood Count 8.7 x10^3/uL (4.0-11.0) Red Blood Count 2.17 x10^6/uL (4.30-5.70) Hemoglobin 7.1 g/dL (13.0-17.5) 7.8 g/dL (13.0-17.5) Hematocrit 20.5 % (39.0-53.0) Mean Corpuscular Volume 94 fL (79-100) Mean Corpuscular Hemoglobin 33 pg (25-35) Mean Corpuscular Hemoglobin Concent 34 g/dL (31-37) Red Cell Distribution Width 16.4 % (11.5-14.5) Platelet Count 112 x10^3/uL (140-400) Sodium Level 134 mmol/L (136-145) Potassium Level 3.6 mmol/L (3.5-5.1) Chloride Level 94 mmol/L (98-107) Carbon Dioxide Level 24 mmol/L (21-32) Anion Gap 16 (6-14) Blood Urea Nitrogen 115 mg/dL (8-26) Creatinine 12.4 mg/dL (0.7-1.3) Estimated GFR (Cockcroft-Gault) 4.1 BUN/Creatinine Ratio 9 (6-20) Glucose Level 154 mg/dL (70-99) Calcium Level 8.0 mg/dL (8.5-10.1) Total Bilirubin 0.5 mg/dL (0.2-1.0) Aspartate Amino Transf (AST/SGOT) 19 U/L (15-37) Alanine Aminotransferase (ALT/SGPT) 14 U/L (16-63) Alkaline Phosphatase 68 U/L (46-116) Total Protein 5.6 g/dL (6.4-8.2) Albumin 1.9 g/dL (3.4-5.0) Albumin/Globulin Ratio 0.5 (1.0-1.7) Glucose (Fingerstick) 201 mg/dL (70-99) Test 04/23/17 05:45 04/23/17 08:00 Hemoglobin 7.4 g/dL (13.0-17.5) Sodium Level 133 mmol/L (136-145) Potassium Level 3.6 mmol/L (3.5-5.1) Chloride Level 93 mmol/L (98-107) Carbon Dioxide Level 24 mmol/L (21-32) Anion Gap 16 (6-14) Blood Urea Nitrogen 115 mg/dL (8-26) Creatinine 12.6 mg/dL (0.7-1.3) Estimated GFR (Cockcroft-Gault) 4.1 Glucose Level 315 mg/dL (70-99) Calcium Level 7.6 mg/dL (8.5-10.1) Phosphorus Level 6.4 mg/dL (2.6-4.7) Magnesium Level 1.8 mg/dL (1.8-2.4) Triglycerides Level 81 mg/dL (0-150) O2 Saturation 97 % (92-99) Arterial Blood pH 7.34 (7.35-7.45) Arterial Blood pCO2 at Patient Temp 42 mmHg (35-46) Arterial Blood pO2 at Patient Temp 116 mmHg (65-108) Arterial Blood HCO3 22 mmol/L (21-28) Arterial Blood Base Excess -4 mmol/L (-3-3) FiO2 35 Laboratory Tests Test 04/22/17 16:05 04/22/17 17:05 04/22/17 22:00 04/23/17 00:21 White Blood Count 8.7 x10^3/uL (4.0-11.0) Red Blood Count 2.17 x10^6/uL (4.30-5.70) Hemoglobin 7.1 g/dL (13.0-17.5) 7.8 g/dL (13.0-17.5) Hematocrit 20.5 % (39.0-53.0) Mean Corpuscular Volume 94 fL (79-100) Mean Corpuscular Hemoglobin 33 pg (25-35) Mean Corpuscular Hemoglobin Concent 34 g/dL (31-37) Red Cell Distribution Width 16.4 % (11.5-14.5) Platelet Count 112 x10^3/uL (140-400) Sodium Level 134 mmol/L (136-145) Potassium Level 3.6 mmol/L (3.5-5.1) Chloride Level 94 mmol/L (98-107) Carbon Dioxide Level 24 mmol/L (21-32) Anion Gap 16 (6-14) Blood Urea Nitrogen 115 mg/dL (8-26) Creatinine 12.4 mg/dL (0.7-1.3) Estimated GFR (Cockcroft-Gault) 4.1 BUN/Creatinine Ratio 9 (6-20) Glucose Level 154 mg/dL (70-99) Calcium Level 8.0 mg/dL (8.5-10.1) Total Bilirubin 0.5 mg/dL (0.2-1.0) Aspartate Amino Transf (AST/SGOT) 19 U/L (15-37) Alanine Aminotransferase (ALT/SGPT) 14 U/L (16-63) Alkaline Phosphatase 68 U/L (46-116) Total Protein 5.6 g/dL (6.4-8.2) Albumin 1.9 g/dL (3.4-5.0) Albumin/Globulin Ratio 0.5 (1.0-1.7) Glucose (Fingerstick) 201 mg/dL (70-99) Test 04/23/17 05:45 04/23/17 08:00 Hemoglobin 7.4 g/dL (13.0-17.5) Sodium Level 133 mmol/L (136-145) Potassium Level 3.6 mmol/L (3.5-5.1) Chloride Level 93 mmol/L (98-107) Carbon Dioxide Level 24 mmol/L (21-32) Anion Gap 16 (6-14) Blood Urea Nitrogen 115 mg/dL (8-26) Creatinine 12.6 mg/dL (0.7-1.3) Estimated GFR (Cockcroft-Gault) 4.1 Glucose Level 315 mg/dL (70-99) Calcium Level 7.6 mg/dL (8.5-10.1) Phosphorus Level 6.4 mg/dL (2.6-4.7) Magnesium Level 1.8 mg/dL (1.8-2.4) Triglycerides Level 81 mg/dL (0-150) O2 Saturation 97 % (92-99) Arterial Blood pH 7.34 (7.35-7.45) Arterial Blood pCO2 at Patient Temp 42 mmHg (35-46) Arterial Blood pO2 at Patient Temp 116 mmHg (65-108) Arterial Blood HCO3 22 mmol/L (21-28) Arterial Blood Base Excess -4 mmol/L (-3-3) FiO2 35 Medications Active Scripts Medications Dose Route/Sig Max Daily Dose Days Date Category Isosorbide Mononitrate Er (Isosorbide Mononitrate) 60 Mg Tab.er.24h 20 Mg PO TID 04/22/17 Reported Famotidine 20 Mg Tablet 20 Mg PEG HS 04/22/17 Reported Calcium Carbonate 500 Mg Tablet 1,000 Mg PEG TID 04/22/17 Reported Atorvastatin Calcium 10 Mg Tablet 0.5 Tab PEG DAILY 04/22/17 Reported Aspirin 325 Mg Tablet 300 Supp PO DAILY 04/22/17 Reported Vistaril (Hydroxyzine Pamoate) 25 Mg Capsule 1 Cap PO PRN DAILY PRN 03/28/17 Reported Co Q-10 (Ubidecarenone) 400 Mg Capsule 400 Mg PO BID 03/28/17 Reported Nephro-Harsha Tablet (Folic Acid/Vitamin B Comp W-C) 0.8 Mg Tablet Unknown Dose PO HS 03/28/17 Reported Tamsulosin Hcl 0.4 Mg Cap.er.24h 0.4 Mg PO DAILY 03/28/17 Reported Sodium Bicarbonate 650 Mg Tablet 650 Mg PO TIDBFRMEAL 03/28/17 Reported Krill Oil 500 Mg Capsule 500 Mg PO DAILY 03/28/17 Reported Cranberry (Cranberry Extract) 500 Mg Capsule 500 Mg PO DAILY 03/28/17 Reported Potassium Chloride 20 Meq Tablet.er 20 Meq PO BID 08/27/16 Reported Pantoprazole Sodium 40 Mg Tablet.dr 40 Mg PO DAILY 08/27/16 Reported Lisinopril 10 Mg Tablet 0.5 Tab PO DAILY 08/27/16 Reported Zolpidem Tartrate 10 Mg Tablet 1 Tab PO QHS 08/27/16 Reported Levemir Flextouch (Insulin Detemir) 100 Unit/1 Ml Insuln.pen 80 Unit SQ HS 08/27/16 Reported Gabapentin 100 Mg Capsule 300 Mg PO HS 08/27/16 Reported Furosemide 40 Mg Tablet 2 Tab PO BID 08/27/16 Reported Hydrocodone-Apap 7.5-325 (Hydrocodone Bit/Acetaminophen) 1 Each Tablet 1 Tab PO PRN Q6HRS PRN 08/27/16 Reported Ferrous Sulfate 324 Mg Tablet.dr 324 Mg PO BID 08/27/16 Reported Doxazosin Mesylate 8 Mg Tablet 0.5 Tab PO HS 08/27/16 Reported Vitamin D3 (Cholecalciferol (Vitamin D3)) 1,000 Unit Tablet 1 Tab PO DAILY 08/27/16 Reported Carvedilol 25 Mg Tablet 1 Tab PO BID 08/27/16 Reported Novolog Flexpen (Insulin Aspart) 100 Unit/1 Ml Insuln.pen 16 Unit SQ TIDBFRMEAL 02/03/15 Reported Sodium Bicarbonate 650 Mg Tablet 650 Mg PO TIDWMEALS 02/03/15 Reported Allopurinol 100 Mg Tablet 100 Mg PO DAILY 02/03/15 Reported Impression . FULL NOTE DICTATED SEE ORDERS THANKS A/C RESP FAILURE LG DEE MD Apr 23, 2017 13:42
[2017-04-23] MEDS: TPN PER PHARMACY MC PRN (14:10)
--- NOTE | 2017-04-23 16:23 | HP ---
ADMIT DATE: 04/22/2017 CHIEF COMPLAINT: UTI bleed. HISTORY OF PRESENT ILLNESS: The patient is a 61-year-old morbidly obese gentleman who was transferred from [facility] to [facility] to the ICU after undergoing an endoscopy for UTI bleed. He had been noted to have drop in hemoglobins with NG suction tube showing a coffee ground emesis. As he required multiple units of transfusion, he underwent a semi-urgent EGD with Dr. Madsen today, that has showed a large bleeding ulcer with clot. This was injected with epinephrine after attempted clip placement. He now is in the ICU for further monitoring. The patient is nonverbal. He had sustained anoxic brain injury after a cardiac arrest in February. He had been transferred to [facility] subsequently on 03/28/2017 for further management of wounds and respiratory issues. PAST MEDICAL HISTORY: CAD status post CABG, status post cardiopulmonary arrest, end-stage renal disease on peritoneal dialysis, diabetes mellitus type 2, hypertension. SOCIAL HISTORY: Had been living with his . No toxic habits. FAMILY HISTORY: Positive for hypertension and dyslipidemia. ALLERGIES: MULTIPLE INCLUDING LATEX, RUBBER, PENICILLINS, AMLODIPINE, CAPSAICIN, CLINDAMYCIN, INSULIN GLARGINE. MEDICATIONS: MAR reconciled with home medications. REVIEW OF SYSTEMS: Unable to obtain due to nonverbal status. PHYSICAL EXAMINATION: VITAL SIGNS: Show blood pressure of 173/77, heart rate of 94, respiratory rate at 21. He is afebrile. GENERAL: This is a morbidly obese gentleman lying in bed, sedated post-procedure. HEENT: Shows no scleral icterus, wearing yellow glasses for macular degeneration. Oral mucosa is dry. NECK: Supple. Trach in place. LUNGS: Fairly clear. HEART: Has regular rate and rhythm. ABDOMEN: Soft. No masses palpable. EXTREMITIES: Show a trace edema. SKIN: Warm, soft and dry. Amputations of toes bilaterally noted and wrapped in gauze. LABORATORY DATA: CBC with a WBC of 8.7, hemoglobin 7.1, platelets of 112. Chemistries with a BUN and creatinine of 115 and 12.4. Sodium 134, potassium 3.6, and chloride of 93, CO2 of 24. LFTs within normal, albumin at 1.9. ASSESSMENT AND PLAN: The patient is a 61-year-old gentleman with multiple medical issues, now transferred from [facility] for a severe gastrointestinal bleed with gastric ulcer. This hopefully has been addressed successfully. We will monitor his hemoglobins closely, transfuse for hemoglobin less than 7. Platelets currently slightly low as well, we will monitor those as well. PT, INR and PTT, which had been normal this morning at [facility]. For his cardiac issues, we will continue his medications. Blood pressure medications will have to be addressed if blood pressure remained significantly elevated. He should continue on PT while here. Nephrology will be consulted to help with management. Multiple other medical issues including diabetes mellitus will have to be managed cautiously. He had been on TPN at LT. We will continue that here insulin sliding scale and Levemir will be continued. For foot ulcers, status post toe amputations, wound care will be continued. We will restart on Merrem, ID had been following him and LTAC will be consulted here as well. For his anoxic encephalopathy, some improvement had been noted recently and he is occasionally responsive to commands. We will continue to work with this. No therapy, however, during the acute bleeding. VINITA GARDUNO MD DR: EMERALD/nts JOB#: [id number] / [id number] ANGELA
[2017-04-23] MEDS: MEROPENEM 1 GM in IV NORMAL SALINE 100ML 100 ML IV SCH (17:07)
[2017-04-23] MEDS: LABETALOL 20 MG/4 ML DISP.SYRIN. IVP SCH (17:08)
[2017-04-23] MEDS ORDERED: DEXTROSE 50% 25 GM / 50ML DISP.SYRIN. IV PRN (17:30)
[2017-04-23 19:49] LABS: % SAT IRON 41 % (15-34); IRON,SERUM 45 ug/dL (65-175)
[2017-04-23] MEDS ORDERED: DARBEPOETIN ALFA 60 MCG/0.3 ML DISP.SYRIN. SQ SCH (21:00)
[2017-04-23] MEDS: INSULIN DETEMIR 300 UNITS/3 ML INSULN.PEN. SQ SCH (21:55)
[2017-04-23] MEDS ORDERED: TOTAL PARENTERAL NUTRITION IV SCH ×9 (22:00)
[2017-04-23] MEDS ORDERED: DEXTROSE 70% IV SCH ×9 (22:00)
[2017-04-23] MEDS ORDERED: [UNRECOGNIZED DRUG - OTHER] IV SCH ×9 (22:00)
[2017-04-23] MEDS ORDERED: AMINO ACID IV SCH ×9 (22:00)
--- NOTE | 2017-04-23 22:07 | CONS ---
DATE OF CONSULTATION: 04/23/2017 ATTENDING PHYSICIAN: Amanda Mancia MD REASON FOR CONSULTATION: The patient is seen in pulmonary consultation at the request of Dr. Mancia for vent management. HISTORY OF PRESENT ILLNESS: The patient is a 61-year-old who is hospitalized at [facility] back in early part of March. He presented with acute hypoxemic respiratory failure secondary to heart block, coronary artery disease with previous coronary artery bypass grafting and sepsis. The patient was treated and ultimately underwent tracheotomy and was placed on mechanical ventilation. He was transferred to [facility] for weaning. According to the at the bedside, he had been started on tracheal shield for approximately several hours a day ____ his transfer to [facility]. The patient started having some difficulty with upper GI bleed. He underwent EGD earlier today with Dr. Madsen. He was found to have clot and some oozing of blood on the posterior wall of the mid gastric body. Clipping was attempted and was not felt to be successful secondary to difficult position of the lesion. Epinephrine injection was performed, NG tube was placed. The patient was placed back on mechanical support. He was transferred to [facility]. I was asked to manage his ventilator. His blood gas this morning revealed a pH of 7.34, PaCO2 of 42, PaO2 of 116. He is currently on no pressors. His GI bleed appears to be stable. He has had close monitoring of his hemoglobin, which has been stable hovering around 7.1-7.8. PAST MEDICAL HISTORY: Remarkable for recent revision of third toe amputation with irrigation and debridement. He has coronary artery disease with previous coronary artery bypass grafting, end-stage renal disease, on peritoneal dialysis. PAST SURGICAL HISTORY: Status post PEG, trach, coronary artery bypass grafting, left toe amputation. ALLERGIES: MULTIPLE ALLERGIES, SEE THE LIST. CURRENT MEDICATIONS: List was reviewed. Please see the MRAD. REVIEW OF SYSTEMS: As indicated above, otherwise other systems could not be reviewed. PHYSICAL EXAMINATION: VITAL SIGNS: Stable, O2 saturation greater than 92%. HEENT: Eyes: The sclerae were nonicteric. NECK: Jugular venous distention could not be assessed secondary to body habitus. Tracheostomy tube in place. CHEST: Full expansion. LUNGS: Bilaterally clear to auscultation. No wheezes. CARDIOVASCULAR: Regular rate and rhythm with S1, S2, no S3. ABDOMEN: Soft, nontender, nondistended. EXTREMITIES: No clubbing, cyanosis or pitting edema. NEUROLOGIC: The patient was sedated. LABORATORY DATA: Reviewed. Chest x-ray was likewise reviewed. Electrolytes with ____ normal. Sodium is low. BUN is elevated. Creatinine is elevated. Chest x-ray revealed some vascular congestion. IMPRESSION: 1. [id number]-[id number] respiratory failure, multifactorial. 2. Acute gastrointestinal bleed as described above. 3. Status post tracheostomy. 4. Recent upper gastrointestinal bleed from gastric lesion. 5. Coronary artery disease with a previous coronary artery bypass grafting. 6. Recent sepsis, improved. 7. End-stage renal disease, on peritoneal dialysis. 8. Obesity. 9. Dowcy-th-kwgheio anemia. 10. ____. PLAN: 1. We will continue current mechanical support. 2. Follow GI input. The patient is to be restudied in the morning to assess his gastric lesion. 3. DVT and GI prophylaxis. 4. IV fluids. I do appreciate the privilege in sharing the patient's care. Total cumulative critical care time 45 minutes. LG DEE MD DR: RONN/galen JOB#: [id number] / [id number]
[2017-04-23] MEDS ORDERED: INSULIN ASPART 300 UNITS/3 ML INSULN.PEN SQ ONE (22:30)
[2017-04-24] VITALS (26 sets, daily range): BP systolic 132–180; BP diastolic 61–98
[2017-04-24] MEDS: LABETALOL 20 MG/4 ML DISP.SYRIN. IVP SCH ×4 (00:20→17:55)
[2017-04-24 06:16] LABS: CALCIUM 8.3 mg/dL (8.5-10.1); GFR 4.3; POTASSIUM 3.8 mmol/L (3.5-5.1)
[2017-04-24] MEDS: INSULIN ASPART 300 UNITS/3 ML INSULN.PEN SQ SCH ×4 (07:30→23:52)
[2017-04-24] MEDS ORDERED: INSULIN ASPART 300 UNITS/3 ML INSULN.PEN SQ SCH (08:00)
--- NOTE | 2017-04-24 08:28 | PDOC ---
Dialysis Progress Note Dialysis Note Dialysis Note Seen on Hemodialysis, tolerating treatment Okay for now Vitals as noted on my visit : 166/73 90 afeb On the Vent via Trache - more awake Neck: No JVD or JVP Chest: CTA Stanislaw Heart: S1 S2 sys murmur Abdomen - Soft NTND Extremities - + Edema ESRD: Dialysis as below F 180 NR 3.0 Hrs 4 K 2.5 Ca 140 Na 35HC03 Qb 350 + Qd 500+ Heparin 0 Units Uf 3-4 Kgs or to dry weight as tolerated May give 25-50 gms of 25% Albumin if needed to maintain Hemodynamic stability Treatment plan reviewed and discussed with stores laborer Vitals Vital Signs Vital Signs Date Time Temp Pulse Resp B/P (MAP) Pulse Ox O2 Delivery O2 Flow Rate FiO2 04/24/17 07:45 100 Ventilator 04/24/17 06:19 85 171/87 04/24/17 06:00 16 04/24/17 04:00 98.5 98.5 Labs Last Labs Laboratory Tests Test 04/22/17 16:05 04/22/17 17:05 04/22/17 22:00 04/22/17 23:00 White Blood Count 8.7 x10^3/uL (4.0-11.0) Red Blood Count 2.17 x10^6/uL (4.30-5.70) Hemoglobin 7.1 g/dL (13.0-17.5) 7.8 g/dL (13.0-17.5) Hematocrit 20.5 % (39.0-53.0) Mean Corpuscular Volume 94 fL (79-100) Mean Corpuscular Hemoglobin 33 pg (25-35) Mean Corpuscular Hemoglobin Concent 34 g/dL (31-37) Red Cell Distribution Width 16.4 % (11.5-14.5) Platelet Count 112 x10^3/uL (140-400) Sodium Level 134 mmol/L (136-145) Potassium Level 3.6 mmol/L (3.5-5.1) Chloride Level 94 mmol/L (98-107) Carbon Dioxide Level 24 mmol/L (21-32) Anion Gap 16 (6-14) Blood Urea Nitrogen 115 mg/dL (8-26) Creatinine 12.4 mg/dL (0.7-1.3) Estimated GFR (Cockcroft-Gault) 4.1 BUN/Creatinine Ratio 9 (6-20) Glucose Level 154 mg/dL (70-99) Calcium Level 8.0 mg/dL (8.5-10.1) Total Bilirubin 0.5 mg/dL (0.2-1.0) Aspartate Amino Transf (AST/SGOT) 19 U/L (15-37) Alanine Aminotransferase (ALT/SGPT) 14 U/L (16-63) Alkaline Phosphatase 68 U/L (46-116) Total Protein 5.6 g/dL (6.4-8.2) Albumin 1.9 g/dL (3.4-5.0) Albumin/Globulin Ratio 0.5 (1.0-1.7) Nasal Screen MRSA (PCR) Negative (Negative) Test 04/23/17 00:21 04/23/17 05:45 04/23/17 08:00 04/23/17 13:25 Glucose (Fingerstick) 201 mg/dL (70-99) Hemoglobin 7.4 g/dL (13.0-17.5) 7.8 g/dL (13.0-17.5) Sodium Level 133 mmol/L (136-145) Potassium Level 3.6 mmol/L (3.5-5.1) Chloride Level 93 mmol/L (98-107) Carbon Dioxide Level 24 mmol/L (21-32) Anion Gap 16 (6-14) Blood Urea Nitrogen 115 mg/dL (8-26) Creatinine 12.6 mg/dL (0.7-1.3) Estimated GFR (Cockcroft-Gault) 4.1 Glucose Level 315 mg/dL (70-99) Calcium Level 7.6 mg/dL (8.5-10.1) Phosphorus Level 6.4 mg/dL (2.6-4.7) Magnesium Level 1.8 mg/dL (1.8-2.4) Triglycerides Level 81 mg/dL (0-150) O2 Saturation 97 % (92-99) Arterial Blood pH 7.34 (7.35-7.45) Arterial Blood pCO2 at Patient Temp 42 mmHg (35-46) Arterial Blood pO2 at Patient Temp 116 mmHg (65-108) Arterial Blood HCO3 22 mmol/L (21-28) Arterial Blood Base Excess -4 mmol/L (-3-3) FiO2 35 Reticulocyte Count (auto) 1.3 % (0.5-2.5) Iron Level 45 ug/dL (65-175) Total Iron Binding Capacity 109 ug/dL (250-450) Iron Saturation 41 % (15-34) Ferritin 1309 ng/mL (26-388) Test 04/23/17 21:52 04/23/17 22:00 04/24/17 05:45 Glucose (Fingerstick) 408 mg/dL (70-99) Hemoglobin 7.7 g/dL (13.0-17.5) 7.5 g/dL (13.0-17.5) Sodium Level 133 mmol/L (136-145) Potassium Level 3.8 mmol/L (3.5-5.1) Chloride Level 95 mmol/L (98-107) Carbon Dioxide Level 25 mmol/L (21-32) Anion Gap 13 (6-14) Blood Urea Nitrogen 114 mg/dL (8-26) Creatinine 12.0 mg/dL (0.7-1.3) Estimated GFR (Cockcroft-Gault) 4.3 Glucose Level 374 mg/dL (70-99) Calcium Level 8.3 mg/dL (8.5-10.1) Laboratory Tests Test 04/23/17 13:25 04/23/17 21:52 04/23/17 22:00 04/24/17 05:45 Hemoglobin 7.8 g/dL (13.0-17.5) 7.7 g/dL (13.0-17.5) 7.5 g/dL (13.0-17.5) Reticulocyte Count (auto) 1.3 % (0.5-2.5) Iron Level 45 ug/dL (65-175) Total Iron Binding Capacity 109 ug/dL (250-450) Iron Saturation 41 % (15-34) Ferritin 1309 ng/mL (26-388) Glucose (Fingerstick) 408 mg/dL (70-99) Sodium Level 133 mmol/L (136-145) Potassium Level 3.8 mmol/L (3.5-5.1) Chloride Level 95 mmol/L (98-107) Carbon Dioxide Level 25 mmol/L (21-32) Anion Gap 13 (6-14) Blood Urea Nitrogen 114 mg/dL (8-26) Creatinine 12.0 mg/dL (0.7-1.3) Estimated GFR (Cockcroft-Gault) 4.3 Glucose Level 374 mg/dL (70-99) Calcium Level 8.3 mg/dL (8.5-10.1) MIREYA HART MD Apr 24, 2017 08:28
[2017-04-24 08:32] LABS: HCO3 ABG 20 mmol/L (21-28); PCO2 ABG 38 mmHg (35-46); PH ABG 7.33 (7.35-7.45); PO2 ABG 127 mmHg (65-108); SAT O2 ABG 97 % (92-99)
[2017-04-24 08:41] LABS: FIO2 ABG 35
[2017-04-24] MEDS: INSULIN DETEMIR 300 UNITS/3 ML INSULN.PEN. SQ SCH ×2 (09:00→22:36)
[2017-04-24] MEDS ORDERED: IV NORMAL SALINE 1000ML BAG 1,000 ML IV PRN (09:32)
[2017-04-24] MEDS ORDERED: DIALYSIS PATIENT. MC PRN ×2 (09:45)
--- NOTE | 2017-04-24 09:48 | PDOC ---
PROGRESS NOTES Chief Complaint Chief Complaint UGIB ASSESSMENT AND PLAN: 1. UGIB: s/p EGD 04/22 with ulcer, injected/clipped. no evidence of ongoing bleed, preempting need for rpt EGD 2. Anemia: acute bleed. s/p mult transfusions. Hgb stable since EGD in 7 range. monitor 3. Anoxic brain injury: waxing and waning status, much improved today, trying to speak for the first time 4. HTN: poorly controlled off home meds; on IV labetalol, hyralazine 5. DM2: requiring adjustment with TPN. levemir increased to 50 bid 6. ESRD: on PD. [place] following 7. COPD: no acute issues. nebs PRN 8. Respir failure: related to cardiac arrest; trach.ed, currently vented. wean as buck. 9. CAD: no acute issues. cont cardiac meds 10. Foot ulcers: wound care consult; continue merrem as per ID 11. Dispo: transfer back to [facility] in AM if H/H remain stable History of Present Illness History of Present Illness alert today, trying to speak (trach-vented). denies abd pain Vitals Vitals Vital Signs Date Time Temp Pulse Resp B/P (MAP) Pulse Ox O2 Delivery O2 Flow Rate FiO2 04/24/17 07:45 100 Ventilator 04/24/17 06:19 85 171/87 04/24/17 06:00 16 04/24/17 04:00 98.5 98.5 Physical Exam General: Alert, Cooperative, No acute distress Heart: Regular rate Lungs: Clear, Crackles Abdomen: Normal bowel sounds, Soft, No tenderness Extremities: No edema Skin: No rashes Labs LABS Laboratory Tests Test 04/23/17 13:25 04/23/17 21:52 04/23/17 22:00 04/24/17 05:45 Hemoglobin 7.8 g/dL (13.0-17.5) 7.7 g/dL (13.0-17.5) 7.5 g/dL (13.0-17.5) Reticulocyte Count (auto) 1.3 % (0.5-2.5) Iron Level 45 ug/dL (65-175) Total Iron Binding Capacity 109 ug/dL (250-450) Iron Saturation 41 % (15-34) Ferritin 1309 ng/mL (26-388) Glucose (Fingerstick) 408 mg/dL (70-99) Sodium Level 133 mmol/L (136-145) Potassium Level 3.8 mmol/L (3.5-5.1) Chloride Level 95 mmol/L (98-107) Carbon Dioxide Level 25 mmol/L (21-32) Anion Gap 13 (6-14) Blood Urea Nitrogen 114 mg/dL (8-26) Creatinine 12.0 mg/dL (0.7-1.3) Estimated GFR (Cockcroft-Gault) 4.3 Glucose Level 374 mg/dL (70-99) Calcium Level 8.3 mg/dL (8.5-10.1) Test 04/24/17 08:00 O2 Saturation 97 % (92-99) Arterial Blood pH 7.33 (7.35-7.45) Arterial Blood pCO2 at Patient Temp 38 mmHg (35-46) Arterial Blood pO2 at Patient Temp 127 mmHg (65-108) Arterial Blood HCO3 20 mmol/L (21-28) Arterial Blood Base Excess -6 mmol/L (-3-3) FiO2 35 VINITA GARDUNO MD Apr 24, 2017 09:47
[2017-04-24] MEDS: TPN PER PHARMACY MC PRN (11:12)
[2017-04-24] MEDS ORDERED: hydrALAZINE 20 MG/ML VIAL. IVP PRN (11:30)
[2017-04-24] MEDS ORDERED: INSULIN DETEMIR 300 UNITS/3 ML INSULN.PEN. SQ ONE (11:30)
[2017-04-24] MEDS: PANTOPRAZOLE SODIUM IV 80 MG in IV NORMAL SALINE 100ML 100 ML IV SCH ×2 (11:39→20:05)
--- NOTE | 2017-04-24 11:52 | PDOC ---
PULMONARY PROGRESS NOTES Subjective PT WITH NO SIGN OF DISTRESS Vitals Vital Signs Date Time Temp Pulse Resp B/P (MAP) Pulse Ox O2 Delivery O2 Flow Rate FiO2 04/24/17 11:37 100 Ventilator 04/24/17 06:19 85 171/87 04/24/17 06:00 16 04/24/17 04:00 98.5 98.5 ROS: No Chest Pain HEENT: Other Lungs: Clear Cardiovascular: S1, S2 Abdomen: Soft Neuro Exam: Alert Extremities: No Edema Skin: Warm Labs Laboratory Tests Test 04/22/17 16:05 04/22/17 17:05 04/22/17 22:00 04/22/17 23:00 White Blood Count 8.7 x10^3/uL (4.0-11.0) Red Blood Count 2.17 x10^6/uL (4.30-5.70) Hemoglobin 7.1 g/dL (13.0-17.5) 7.8 g/dL (13.0-17.5) Hematocrit 20.5 % (39.0-53.0) Mean Corpuscular Volume 94 fL (79-100) Mean Corpuscular Hemoglobin 33 pg (25-35) Mean Corpuscular Hemoglobin Concent 34 g/dL (31-37) Red Cell Distribution Width 16.4 % (11.5-14.5) Platelet Count 112 x10^3/uL (140-400) Sodium Level 134 mmol/L (136-145) Potassium Level 3.6 mmol/L (3.5-5.1) Chloride Level 94 mmol/L (98-107) Carbon Dioxide Level 24 mmol/L (21-32) Anion Gap 16 (6-14) Blood Urea Nitrogen 115 mg/dL (8-26) Creatinine 12.4 mg/dL (0.7-1.3) Estimated GFR (Cockcroft-Gault) 4.1 BUN/Creatinine Ratio 9 (6-20) Glucose Level 154 mg/dL (70-99) Calcium Level 8.0 mg/dL (8.5-10.1) Total Bilirubin 0.5 mg/dL (0.2-1.0) Aspartate Amino Transf (AST/SGOT) 19 U/L (15-37) Alanine Aminotransferase (ALT/SGPT) 14 U/L (16-63) Alkaline Phosphatase 68 U/L (46-116) Total Protein 5.6 g/dL (6.4-8.2) Albumin 1.9 g/dL (3.4-5.0) Albumin/Globulin Ratio 0.5 (1.0-1.7) Nasal Screen MRSA (PCR) Negative (Negative) Test 04/23/17 00:21 04/23/17 05:45 04/23/17 08:00 04/23/17 13:25 Glucose (Fingerstick) 201 mg/dL (70-99) Hemoglobin 7.4 g/dL (13.0-17.5) 7.8 g/dL (13.0-17.5) Sodium Level 133 mmol/L (136-145) Potassium Level 3.6 mmol/L (3.5-5.1) Chloride Level 93 mmol/L (98-107) Carbon Dioxide Level 24 mmol/L (21-32) Anion Gap 16 (6-14) Blood Urea Nitrogen 115 mg/dL (8-26) Creatinine 12.6 mg/dL (0.7-1.3) Estimated GFR (Cockcroft-Gault) 4.1 Glucose Level 315 mg/dL (70-99) Calcium Level 7.6 mg/dL (8.5-10.1) Phosphorus Level 6.4 mg/dL (2.6-4.7) Magnesium Level 1.8 mg/dL (1.8-2.4) Triglycerides Level 81 mg/dL (0-150) O2 Saturation 97 % (92-99) Arterial Blood pH 7.34 (7.35-7.45) Arterial Blood pCO2 at Patient Temp 42 mmHg (35-46) Arterial Blood pO2 at Patient Temp 116 mmHg (65-108) Arterial Blood HCO3 22 mmol/L (21-28) Arterial Blood Base Excess -4 mmol/L (-3-3) FiO2 35 Reticulocyte Count (auto) 1.3 % (0.5-2.5) Iron Level 45 ug/dL (65-175) Total Iron Binding Capacity 109 ug/dL (250-450) Iron Saturation 41 % (15-34) Ferritin 1309 ng/mL (26-388) Test 04/23/17 21:52 04/23/17 22:00 04/24/17 05:45 04/24/17 08:00 Glucose (Fingerstick) 408 mg/dL (70-99) Hemoglobin 7.7 g/dL (13.0-17.5) 7.5 g/dL (13.0-17.5) Sodium Level 133 mmol/L (136-145) Potassium Level 3.8 mmol/L (3.5-5.1) Chloride Level 95 mmol/L (98-107) Carbon Dioxide Level 25 mmol/L (21-32) Anion Gap 13 (6-14) Blood Urea Nitrogen 114 mg/dL (8-26) Creatinine 12.0 mg/dL (0.7-1.3) Estimated GFR (Cockcroft-Gault) 4.3 Glucose Level 374 mg/dL (70-99) Calcium Level 8.3 mg/dL (8.5-10.1) O2 Saturation 97 % (92-99) Arterial Blood pH 7.33 (7.35-7.45) Arterial Blood pCO2 at Patient Temp 38 mmHg (35-46) Arterial Blood pO2 at Patient Temp 127 mmHg (65-108) Arterial Blood HCO3 20 mmol/L (21-28) Arterial Blood Base Excess -6 mmol/L (-3-3) FiO2 35 Test 04/24/17 11:38 Glucose (Fingerstick) 236 mg/dL (70-99) Laboratory Tests Test 04/23/17 13:25 04/23/17 21:52 04/23/17 22:00 04/24/17 05:45 Hemoglobin 7.8 g/dL (13.0-17.5) 7.7 g/dL (13.0-17.5) 7.5 g/dL (13.0-17.5) Reticulocyte Count (auto) 1.3 % (0.5-2.5) Iron Level 45 ug/dL (65-175) Total Iron Binding Capacity 109 ug/dL (250-450) Iron Saturation 41 % (15-34) Ferritin 1309 ng/mL (26-388) Glucose (Fingerstick) 408 mg/dL (70-99) Sodium Level 133 mmol/L (136-145) Potassium Level 3.8 mmol/L (3.5-5.1) Chloride Level 95 mmol/L (98-107) Carbon Dioxide Level 25 mmol/L (21-32) Anion Gap 13 (6-14) Blood Urea Nitrogen 114 mg/dL (8-26) Creatinine 12.0 mg/dL (0.7-1.3) Estimated GFR (Cockcroft-Gault) 4.3 Glucose Level 374 mg/dL (70-99) Calcium Level 8.3 mg/dL (8.5-10.1) Test 04/24/17 08:00 04/24/17 11:38 O2 Saturation 97 % (92-99) Arterial Blood pH 7.33 (7.35-7.45) Arterial Blood pCO2 at Patient Temp 38 mmHg (35-46) Arterial Blood pO2 at Patient Temp 127 mmHg (65-108) Arterial Blood HCO3 20 mmol/L (21-28) Arterial Blood Base Excess -6 mmol/L (-3-3) FiO2 35 Glucose (Fingerstick) 236 mg/dL (70-99) Medications Active Scripts Medications Dose Route/Sig Max Daily Dose Days Date Category Isosorbide Mononitrate Er (Isosorbide Mononitrate) 60 Mg Tab.er.24h 20 Mg PO TID 04/22/17 Reported Famotidine 20 Mg Tablet 20 Mg PEG HS 04/22/17 Reported Calcium Carbonate 500 Mg Tablet 1,000 Mg PEG TID 04/22/17 Reported Atorvastatin Calcium 10 Mg Tablet 0.5 Tab PEG DAILY 04/22/17 Reported Aspirin 325 Mg Tablet 300 Supp PO DAILY 04/22/17 Reported Vistaril (Hydroxyzine Pamoate) 25 Mg Capsule 1 Cap PO PRN DAILY PRN 03/28/17 Reported Co Q-10 (Ubidecarenone) 400 Mg Capsule 400 Mg PO BID 03/28/17 Reported Nephro-Harsha Tablet (Folic Acid/Vitamin B Comp W-C) 0.8 Mg Tablet Unknown Dose PO HS 03/28/17 Reported Tamsulosin Hcl 0.4 Mg Cap.er.24h 0.4 Mg PO DAILY 03/28/17 Reported Sodium Bicarbonate 650 Mg Tablet 650 Mg PO TIDBFRMEAL 03/28/17 Reported Krill Oil 500 Mg Capsule 500 Mg PO DAILY 03/28/17 Reported Cranberry (Cranberry Extract) 500 Mg Capsule 500 Mg PO DAILY 03/28/17 Reported Potassium Chloride 20 Meq Tablet.er 20 Meq PO BID 08/27/16 Reported Pantoprazole Sodium 40 Mg Tablet.dr 40 Mg PO DAILY 08/27/16 Reported Lisinopril 10 Mg Tablet 0.5 Tab PO DAILY 08/27/16 Reported Zolpidem Tartrate 10 Mg Tablet 1 Tab PO QHS 08/27/16 Reported Levemir Flextouch (Insulin Detemir) 100 Unit/1 Ml Insuln.pen 80 Unit SQ HS 08/27/16 Reported Gabapentin 100 Mg Capsule 300 Mg PO HS 08/27/16 Reported Furosemide 40 Mg Tablet 2 Tab PO BID 08/27/16 Reported Hydrocodone-Apap 7.5-325 (Hydrocodone Bit/Acetaminophen) 1 Each Tablet 1 Tab PO PRN Q6HRS PRN 08/27/16 Reported Ferrous Sulfate 324 Mg Tablet.dr 324 Mg PO BID 08/27/16 Reported Doxazosin Mesylate 8 Mg Tablet 0.5 Tab PO HS 08/27/16 Reported Vitamin D3 (Cholecalciferol (Vitamin D3)) 1,000 Unit Tablet 1 Tab PO DAILY 08/27/16 Reported Carvedilol 25 Mg Tablet 1 Tab PO BID 08/27/16 Reported Novolog Flexpen (Insulin Aspart) 100 Unit/1 Ml Insuln.pen 16 Unit SQ TIDBFRMEAL 02/03/15 Reported Sodium Bicarbonate 650 Mg Tablet 650 Mg PO TIDWMEALS 02/03/15 Reported Allopurinol 100 Mg Tablet 100 Mg PO DAILY 02/03/15 Reported Impression . 1. Ampys-ya-jkibgrd respiratory failure, multifactorial. 2. Acute gastrointestinal bleed as described above. 3. Status post tracheostomy. 4. Recent upper gastrointestinal bleed from gastric lesion. 5. Coronary artery disease with a previous coronary artery bypass grafting. 6. Recent sepsis, improved. 7. End-stage renal disease, on peritoneal dialysis. 8. Obesity. 9. Yzjoq-ue-qawbgti anemia. Plan . HEMODYNAMICALLY STABLE WILL CONTINUE SUPPORT EGD TODAY LABS STABLE D/W EIFE 1. We will continue current mechanical support. 2. Follow GI input. 3. DVT and GI prophylaxis. 4. IV fluids. LG DEE MD Apr 24, 2017 11:52
[2017-04-24] MEDS ORDERED: PROPOFOL 40 ML IV ONE (15:18)
--- NOTE | 2017-04-24 15:52 | PDOC4 ---
PROCEDURE Procedure EGD Indication: recent UGIB, cause obscure. Meds: per anesthesia Findings: E--NG erosions distally. G--Clip on posterior wall, upper body (placed by Dr. Madsen). No ulcer or other visible lesion though clearly the site of bleeding before. Remainder of stomach OK save NG erosions. D--Normal to second portion. Alisha. well. IMP: Bleeding likely from a Dieulafoy's lesion, now re-epithelialized. No visible lesion to treat currently. REC: Continue antisecretory. Monitor for bleeding. If re-bleeds, would ask IR to attempt embolization. Thanks. QUINTON WHITLOCK MD Apr 24, 2017 15:52
[2017-04-24] MEDS: MEROPENEM 1 GM in IV NORMAL SALINE 100ML 100 ML IV SCH (17:54)
[2017-04-24] MEDS ORDERED: [UNRECOGNIZED DRUG - OTHER] IV SCH ×9 (22:00)
[2017-04-24] MEDS ORDERED: AMINO ACID IV SCH ×9 (22:00)
[2017-04-24] MEDS ORDERED: DEXTROSE 70% IV SCH ×9 (22:00)
[2017-04-24] MEDS ORDERED: TOTAL PARENTERAL NUTRITION IV SCH ×9 (22:00)
[2017-04-25] VITALS (16 sets, daily range): BP systolic 117–178; BP diastolic 58–84
[2017-04-25] MEDS: LABETALOL 20 MG/4 ML DISP.SYRIN. IVP SCH ×3 (00:10→12:10)
[2017-04-25] MEDS: INSULIN ASPART 300 UNITS/3 ML INSULN.PEN SQ SCH ×2 (06:00→12:00)
[2017-04-25 06:04] LABS: BASO % 0 % (0-3); EOS % 6 % (0-3); LYMPH # 0.3 x10^3/uL (1.0-4.8); LYMPH % 3 % (24-48); MEAN CORPUSCULAR HEMOGLOBIN 33 pg (25-35); MEAN CORPUSCULAR HGB CONC 35 g/dL (31-37); MEAN CORPUSCULAR VOLUME 95 fL (79-100); MONO % 5 % (0-9); NEUT % 86 % (31-73); PLATELET COUNT 107 x10^3/uL (140-400); RED BLOOD COUNT 2.11 x10^6/uL (4.30-5.70); RED CELL DISTRIBUTION WIDTH 17.2 % (11.5-14.5); WHITE BLOOD COUNT 8.5 x10^3/uL (4.0-11.0)
[2017-04-25 06:17] LABS: HEMOGLOBIN 6.9 g/dL (13.0-17.5)
[2017-04-25 06:23] LABS: ALBUMIN 2.1 g/dL (3.4-5.0); ALBUMIN/GLOBULIN RATIO 0.5 (1.0-1.7); CALCIUM 8.1 mg/dL (8.5-10.1); CREATININE 9.2 mg/dL (0.7-1.3); GFR 5.8; TOTAL BILIRUBIN 0.5 mg/dL (0.2-1.0)
[2017-04-25] MEDS: PANTOPRAZOLE SODIUM IV 80 MG in IV NORMAL SALINE 100ML 100 ML IV SCH (08:03)
[2017-04-25] MEDS ORDERED: IV NORMAL SALINE 1000ML BAG 1,000 ML IV PRN ×2 (08:05)
[2017-04-25] MEDS: INSULIN DETEMIR 300 UNITS/3 ML INSULN.PEN. SQ SCH (08:06)
[2017-04-25] MEDS ORDERED: DIALYSIS PATIENT. MC PRN (08:15)
[2017-04-25 08:30] LABS: HCO3 ABG 27 mmol/L (21-28); PCO2 ABG 41 mmHg (35-46); PH ABG 7.43 (7.35-7.45); PO2 ABG 132 mmHg (65-108); SAT O2 ABG 98 % (92-99)
[2017-04-25 08:33] LABS: FIO2 ABG 35
--- NOTE | 2017-04-25 10:00 | PDOC ---
Subjective: Subjective: says "bled a lot" when trach suctioning yesterday. Objective: Objective: Per RN - no bleeding. Possible DC to [facility] today. Vital Signs: Vital Signs Date Time Temp Pulse Resp B/P (MAP) Pulse Ox O2 Delivery O2 Flow Rate FiO2 04/25/17 09:09 99.2 92 22 161/75 99.2 04/25/17 09:00 100 Ventilator Labs: Laboratory Tests Test 04/24/17 11:38 04/24/17 15:20 04/24/17 17:56 04/24/17 22:30 Glucose (Fingerstick) 236 mg/dL 251 mg/dL 242 mg/dL Hemoglobin 7.2 g/dL Test 04/24/17 23:49 04/25/17 05:48 04/25/17 05:50 04/25/17 08:00 Glucose (Fingerstick) 232 mg/dL 171 mg/dL White Blood Count 8.5 x10^3/uL Red Blood Count 2.11 x10^6/uL Hemoglobin 6.9 g/dL Hematocrit 20.0 % Mean Corpuscular Volume 95 fL Mean Corpuscular Hemoglobin 33 pg Mean Corpuscular Hemoglobin Concent 35 g/dL Red Cell Distribution Width 17.2 % Platelet Count 107 x10^3/uL Neutrophils (%) (Auto) 86 % Lymphocytes (%) (Auto) 3 % Monocytes (%) (Auto) 5 % Eosinophils (%) (Auto) 6 % Basophils (%) (Auto) 0 % Neutrophils # (Auto) 7.3 x10^3uL Lymphocytes # (Auto) 0.3 x10^3/uL Monocytes # (Auto) 0.4 x10^3/uL Eosinophils # (Auto) 0.5 x10^3/uL Basophils # (Auto) 0.0 x10^3/uL Sodium Level 137 mmol/L Potassium Level 4.0 mmol/L Chloride Level 100 mmol/L Carbon Dioxide Level 27 mmol/L Anion Gap 10 Blood Urea Nitrogen 80 mg/dL Creatinine 9.2 mg/dL Estimated GFR (Cockcroft-Gault) 5.8 BUN/Creatinine Ratio 9 Glucose Level 182 mg/dL Calcium Level 8.1 mg/dL Total Bilirubin 0.5 mg/dL Aspartate Amino Transf (AST/SGOT) 24 U/L Alanine Aminotransferase (ALT/SGPT) 22 U/L Alkaline Phosphatase 77 U/L Total Protein 6.0 g/dL Albumin 2.1 g/dL Albumin/Globulin Ratio 0.5 O2 Saturation 98 % Arterial Blood pH 7.43 Arterial Blood pCO2 at Patient Temp 41 mmHg Arterial Blood pO2 at Patient Temp 132 mmHg Arterial Blood HCO3 27 mmol/L Arterial Blood Base Excess 2 mmol/L FiO2 35 Test 04/25/17 08:02 Glucose (Fingerstick) 150 mg/dL Imaging: EGD 04/24/17 Findings: E--NG erosions distally. G--Clip on posterior wall, upper body (placed by Dr. Madsen). No ulcer or other visible lesion though clearly the site of bleeding before. Remainder of stomach OK save NG erosions. D--Normal to second portion. IMP: Bleeding likely from a Dieulafoy's lesion, now re-epithelialized. No visible lesion to treat currently. PE: GEN: dialyzing LUNGS: trach HEART: RRR ABD: BS quiet, soft, maybe some distention, NG w/ dark bilious contents NEURO/PSYCH: asleep A/P: UGI bleed from gastric lesion -s/p EGD w/ endotherapy by Dr. Madsen 04/22/17 -repeat look yesterday as above Chronic anemia -Hgb to 6.9 today w/o significant bleeding, transfusing -- Possible DC today. BRENDA HERNDON Apr 25, 2017 10:00
--- NOTE | 2017-04-25 10:44 | PDOC ---
Dialysis Progress Note Dialysis Note Dialysis Note Seen on Hemodialysis, tolerating treatment Okay for now Vitals as noted on my visit : 168/71 92 afeb On the Vent via Trache - more awake today Neck: No JVD or JVP Chest: CTA Stanislaw Heart: S1 S2 sys murmur Abdomen - Soft NTND Extremities - + Edema ESRD: Dialysis as below F 180 NR 3.5 Hrs 3 K 2.5 Ca 140 Na 35 HC03 Qb 350 + Qd 500+ Heparin 0 Units Uf 3-4 Kgs or to dry weight as tolerated May give 25-50 gms of 25% Albumin if needed to maintain Hemodynamic stability Treatment plan reviewed and discussed with detective automobile section Vitals Vital Signs Vital Signs Date Time Temp Pulse Resp B/P (MAP) Pulse Ox O2 Delivery O2 Flow Rate FiO2 04/25/17 10:15 98.4 94 22 161/76 98.4 04/25/17 10:04 100 Ventilator Labs Last Labs Laboratory Tests Test 04/23/17 13:25 04/23/17 21:52 04/23/17 22:00 04/24/17 05:45 Hemoglobin 7.8 g/dL (13.0-17.5) 7.7 g/dL (13.0-17.5) 7.5 g/dL (13.0-17.5) Reticulocyte Count (auto) 1.3 % (0.5-2.5) Iron Level 45 ug/dL (65-175) Total Iron Binding Capacity 109 ug/dL (250-450) Iron Saturation 41 % (15-34) Ferritin 1309 ng/mL (26-388) Glucose (Fingerstick) 408 mg/dL (70-99) Sodium Level 133 mmol/L (136-145) Potassium Level 3.8 mmol/L (3.5-5.1) Chloride Level 95 mmol/L (98-107) Carbon Dioxide Level 25 mmol/L (21-32) Anion Gap 13 (6-14) Blood Urea Nitrogen 114 mg/dL (8-26) Creatinine 12.0 mg/dL (0.7-1.3) Estimated GFR (Cockcroft-Gault) 4.3 Glucose Level 374 mg/dL (70-99) Calcium Level 8.3 mg/dL (8.5-10.1) Test 04/24/17 08:00 04/24/17 11:38 04/24/17 15:20 04/24/17 17:56 O2 Saturation 97 % (92-99) Arterial Blood pH 7.33 (7.35-7.45) Arterial Blood pCO2 at Patient Temp 38 mmHg (35-46) Arterial Blood pO2 at Patient Temp 127 mmHg (65-108) Arterial Blood HCO3 20 mmol/L (21-28) Arterial Blood Base Excess -6 mmol/L (-3-3) FiO2 35 Glucose (Fingerstick) 236 mg/dL (70-99) 251 mg/dL (70-99) Hemoglobin 7.2 g/dL (13.0-17.5) Test 04/24/17 22:30 04/24/17 23:49 04/25/17 05:48 04/25/17 05:50 Glucose (Fingerstick) 242 mg/dL (70-99) 232 mg/dL (70-99) 171 mg/dL (70-99) White Blood Count 8.5 x10^3/uL (4.0-11.0) Red Blood Count 2.11 x10^6/uL (4.30-5.70) Hemoglobin 6.9 g/dL (13.0-17.5) Hematocrit 20.0 % (39.0-53.0) Mean Corpuscular Volume 95 fL (79-100) Mean Corpuscular Hemoglobin 33 pg (25-35) Mean Corpuscular Hemoglobin Concent 35 g/dL (31-37) Red Cell Distribution Width 17.2 % (11.5-14.5) Platelet Count 107 x10^3/uL (140-400) Neutrophils (%) (Auto) 86 % (31-73) Lymphocytes (%) (Auto) 3 % (24-48) Monocytes (%) (Auto) 5 % (0-9) Eosinophils (%) (Auto) 6 % (0-3) Basophils (%) (Auto) 0 % (0-3) Neutrophils # (Auto) 7.3 x10^3uL (1.8-7.7) Lymphocytes # (Auto) 0.3 x10^3/uL (1.0-4.8) Monocytes # (Auto) 0.4 x10^3/uL (0.0-1.1) Eosinophils # (Auto) 0.5 x10^3/uL (0.0-0.7) Basophils # (Auto) 0.0 x10^3/uL (0.0-0.2) Sodium Level 137 mmol/L (136-145) Potassium Level 4.0 mmol/L (3.5-5.1) Chloride Level 100 mmol/L (98-107) Carbon Dioxide Level 27 mmol/L (21-32) Anion Gap 10 (6-14) Blood Urea Nitrogen 80 mg/dL (8-26) Creatinine 9.2 mg/dL (0.7-1.3) Estimated GFR (Cockcroft-Gault) 5.8 BUN/Creatinine Ratio 9 (6-20) Glucose Level 182 mg/dL (70-99) Calcium Level 8.1 mg/dL (8.5-10.1) Total Bilirubin 0.5 mg/dL (0.2-1.0) Aspartate Amino Transf (AST/SGOT) 24 U/L (15-37) Alanine Aminotransferase (ALT/SGPT) 22 U/L (16-63) Alkaline Phosphatase 77 U/L (46-116) Total Protein 6.0 g/dL (6.4-8.2) Albumin 2.1 g/dL (3.4-5.0) Albumin/Globulin Ratio 0.5 (1.0-1.7) Test 04/25/17 08:00 04/25/17 08:02 O2 Saturation 98 % (92-99) Arterial Blood pH 7.43 (7.35-7.45) Arterial Blood pCO2 at Patient Temp 41 mmHg (35-46) Arterial Blood pO2 at Patient Temp 132 mmHg (65-108) Arterial Blood HCO3 27 mmol/L (21-28) Arterial Blood Base Excess 2 mmol/L (-3-3) FiO2 35 Glucose (Fingerstick) 150 mg/dL (70-99) Laboratory Tests Test 04/24/17 11:38 04/24/17 15:20 04/24/17 17:56 04/24/17 22:30 Glucose (Fingerstick) 236 mg/dL (70-99) 251 mg/dL (70-99) 242 mg/dL (70-99) Hemoglobin 7.2 g/dL (13.0-17.5) Test 04/24/17 23:49 04/25/17 05:48 04/25/17 05:50 04/25/17 08:00 Glucose (Fingerstick) 232 mg/dL (70-99) 171 mg/dL (70-99) White Blood Count 8.5 x10^3/uL (4.0-11.0) Red Blood Count 2.11 x10^6/uL (4.30-5.70) Hemoglobin 6.9 g/dL (13.0-17.5) Hematocrit 20.0 % (39.0-53.0) Mean Corpuscular Volume 95 fL (79-100) Mean Corpuscular Hemoglobin 33 pg (25-35) Mean Corpuscular Hemoglobin Concent 35 g/dL (31-37) Red Cell Distribution Width 17.2 % (11.5-14.5) Platelet Count 107 x10^3/uL (140-400) Neutrophils (%) (Auto) 86 % (31-73) Lymphocytes (%) (Auto) 3 % (24-48) Monocytes (%) (Auto) 5 % (0-9) Eosinophils (%) (Auto) 6 % (0-3) Basophils (%) (Auto) 0 % (0-3) Neutrophils # (Auto) 7.3 x10^3uL (1.8-7.7) Lymphocytes # (Auto) 0.3 x10^3/uL (1.0-4.8) Monocytes # (Auto) 0.4 x10^3/uL (0.0-1.1) Eosinophils # (Auto) 0.5 x10^3/uL (0.0-0.7) Basophils # (Auto) 0.0 x10^3/uL (0.0-0.2) Sodium Level 137 mmol/L (136-145) Potassium Level 4.0 mmol/L (3.5-5.1) Chloride Level 100 mmol/L (98-107) Carbon Dioxide Level 27 mmol/L (21-32) Anion Gap 10 (6-14) Blood Urea Nitrogen 80 mg/dL (8-26) Creatinine 9.2 mg/dL (0.7-1.3) Estimated GFR (Cockcroft-Gault) 5.8 BUN/Creatinine Ratio 9 (6-20) Glucose Level 182 mg/dL (70-99) Calcium Level 8.1 mg/dL (8.5-10.1) Total Bilirubin 0.5 mg/dL (0.2-1.0) Aspartate Amino Transf (AST/SGOT) 24 U/L (15-37) Alanine Aminotransferase (ALT/SGPT) 22 U/L (16-63) Alkaline Phosphatase 77 U/L (46-116) Total Protein 6.0 g/dL (6.4-8.2) Albumin 2.1 g/dL (3.4-5.0) Albumin/Globulin Ratio 0.5 (1.0-1.7) O2 Saturation 98 % (92-99) Arterial Blood pH 7.43 (7.35-7.45) Arterial Blood pCO2 at Patient Temp 41 mmHg (35-46) Arterial Blood pO2 at Patient Temp 132 mmHg (65-108) Arterial Blood HCO3 27 mmol/L (21-28) Arterial Blood Base Excess 2 mmol/L (-3-3) FiO2 35 Test 04/25/17 08:02 Glucose (Fingerstick) 150 mg/dL (70-99) MIREYA HART MD Apr 25, 2017 10:44
--- NOTE | 2017-04-25 13:05 | DS ---
DATE OF DISCHARGE: 04/25/2017 CHIEF COMPLAINT: Upper GI bleed. HOSPITAL COURSE: The patient is a 61-year-old gentleman who sustained a cardiopulmonary arrest with anoxic brain injury who had been admitted to the [facility] initially last week. He was found with dropping hemoglobin and hematemesis and therefore underwent endoscopy by Dr. Madsen at [facility] on 04/22. He was found with a large gastric ulcer, which was initially clipped, then injected with epinephrine. Bleeding was stopped. Hemoglobin remained completely stable. He was monitored closely in the ICU. He still required ventilator support for pulmonary function. Blood pressure was controlled with IV medications, albeit this time with difficulties. He did receive additional units with dialysis here. The patient typically is on peripheral dialysis; however, was switched due to elevated creatinine and BUN here and probably will remain on hemodialysis at least for a while longer after discharge. PHYSICAL EXAMINATION: VITAL SIGNS: From today show a blood pressure of 161/76, heart rate of 94, respiratory rate of 22. He is afebrile. GENERAL: This is a morbidly obese 61-year-old gentleman, alert, unable to vocalize following commands, however. HEENT: Shows no scleral icterus. Trach in place without any infectious signs. LUNGS: Fairly clear anteriorly. HEART: Tachycardic. ABDOMEN: Positive bowel sounds, soft, nontender. PEG in place. EXTREMITIES: Show trace edema x 4. DISCHARGE DATE: 04/25/2017. DISCHARGE DIAGNOSES: Upper gastrointestinal bleed, hypertension, end-stage renal disease. DISCHARGE DISPOSITION: To [facility]. DISCHARGE CONDITION: Improved. DISCHARGE MEDICATIONS: Please refer to the transfer sheet. DISCHARGE INSTRUCTIONS: The patient will follow up with Pulmonary, Internal Medicine, Renal as well as GI physicians at [facility]. VINITA GARDUNO MD DR: EMERALD/galen JOB#: [id number] / [id number] ANGELA
[2017-04-25] MEDS ORDERED: TOTAL PARENTERAL NUTRITION IV SCH ×18 (22:00)
[2017-04-25] MEDS ORDERED: DEXTROSE 70% IV SCH ×18 (22:00)
[2017-04-25] MEDS ORDERED: [UNRECOGNIZED DRUG - OTHER] IV SCH ×9 (22:00)
[2017-04-25] MEDS ORDERED: [UNRECOGNIZED DRUG - OTHER] IV SCH ×9 (22:00)
[2017-04-25] MEDS ORDERED: AMINO ACIDS IV SCH ×18 (22:00)
[2017-05-12] MEDS ORDERED: INSU100V13 SQ (15:48)
[2017-05-12] MEDS ORDERED: METO10TA81 IVP (15:49)
[2017-05-12] MEDS ORDERED: ACET100V3 MC (15:50)
[2017-05-12] MEDS ORDERED: LISI-338 PO (15:51)
[2017-05-12] MEDS ORDERED: ZOLP5TAB5 PO (15:51)
[2017-05-12] MEDS ORDERED: HYDR25TA9 PO (15:52)
[2017-05-12] MEDS ORDERED: [UNRECOGNIZED DRUG - CODE] IV (15:53)
[2017-05-12] MEDS ORDERED: FAT250EM9 IV (15:54)
[2017-05-12] MEDS ORDERED: POLY17PO29 PO (15:54)
[2017-05-12] MEDS ORDERED: MVI IV (15:55)
[2017-05-12] MEDS ORDERED: [UNRECOGNIZED DRUG - CODE] IV (15:56)
[2017-05-12] MEDS ORDERED: DIPH25CA58 IV (15:58)
[2017-05-12] MEDS ORDERED: DIPH50CA PO (15:58)
[2017-05-12] MEDS ORDERED: CLON0.2T PO (15:59)
[2017-05-12] MEDS ORDERED: [UNRECOGNIZED DRUG - CODE] IV (16:00)
[2017-05-12] MEDS ORDERED: ACET500T68 PO (16:07)
[2017-05-13] MEDS ORDERED: MORP15TA IVP (08:19)
[2017-05-13] MEDS ORDERED: IPRA3AMP NEB (08:19)
[2017-05-13] MEDS ORDERED: DOCU100C28 PO (08:19)
[2017-05-13] MEDS ORDERED: TOBR5DRO6 EACHEYE (08:19)
[2017-05-13] MEDS ORDERED: ATOR10TA60 PO (08:19)
[2017-05-13] MEDS ORDERED: PANT40VI IV (08:19)
[2017-05-13] MEDS ORDERED: DARB60DI SQ (08:19)
[2017-05-13] MEDS ORDERED: ALBU2.5V5 NEB (08:19)
[2017-05-13] MEDS ORDERED: ALLO100T PO (08:19)
[2017-05-13] MEDS ORDERED: FERR-26 PO (08:19)
[2017-05-13] MEDS ORDERED: METO25TA4 IV (08:19)
[2017-05-13] MEDS ORDERED: ONDA4TAB11 IVP (08:19)
[2017-05-13] MEDS ORDERED: CALC400T5 PO (08:19)
[2017-05-13] MEDS ORDERED: [UNRECOGNIZED DRUG - OTHER] OP (08:19)
== END 2017-04-25 14:00 | DRG 377 ==
LOC: 1 WEST ICU 14:00
PROVIDERS: ADMIT Internal Medicine Hematology & Oncology; ATTEND Internal Medicine Hematology & Oncology
PROC: 5A1945Z Respiratory Ventilation, 24-96 Consecutive Hours (ICD-10-PCS; 2017-04-22)
PROC: 30233N1 Transfusion of Nonautologous Red Blood Cells into Peripheral Vein, Percutaneous Approach (ICD-10-PCS; 2017-04-22)
PROC: 5A1D60Z (ICD-10-PCS; 2017-04-22)
PROC: 0W3P8ZZ Control Bleeding in Gastrointestinal Tract, Via Natural or Artificial Opening Endoscopic (ICD-10-PCS; 2017-04-22)
PROC: 3E0G8GC Introduction of Other Therapeutic Substance into Upper GI, Via Natural or Artificial Opening Endoscopic (ICD-10-PCS; 2017-04-22)
PROC: 0DJ08ZZ Inspection of Upper Intestinal Tract, Via Natural or Artificial Opening Endoscopic (ICD-10-PCS; principal; 2017-04-24 15:30)
DX: K25.4 Chronic or unspecified gastric ulcer with hemorrhage (principal); J96.21 Acute and chronic respiratory failure with hypoxia; G93.1 Anoxic brain damage, not elsewhere classified; Z93.0 Tracheostomy status; N18.6 End stage renal disease; I12.0 Hypertensive chronic kidney disease with stage 5 chronic kidney disease or end stage renal disease; D62 Acute posthemorrhagic anemia; E11.22 Type 2 diabetes mellitus with diabetic chronic kidney disease; E11.621 Type 2 diabetes mellitus with foot ulcer; E11.69 Type 2 diabetes mellitus with other specified complication; E66.01 Morbid (severe) obesity due to excess calories; E78.5 Hyperlipidemia, unspecified; I25.10 Atherosclerotic heart disease of native coronary artery without angina pectoris; I45.9 Conduction disorder, unspecified; J44.9 Chronic obstructive pulmonary disease, unspecified; R79.89 Other specified abnormal findings of blood chemistry; L97.509 Non-pressure chronic ulcer of other part of unspecified foot with unspecified severity; Z89.429 Acquired absence of other toe(s), unspecified side; Z95.1 Presence of aortocoronary bypass graft; Z99.2 Dependence on renal dialysis; Z79.4 Long term (current) use of insulin; Z88.8 Allergy status to other drugs, medicaments and biological substances; Z91.040 Latex allergy status; Z88.0 Allergy status to penicillin; Z91.048 Other nonmedicinal substance allergy status; Z86.74 Personal history of sudden cardiac arrest; Z82.49 Family history of ischemic heart disease and other diseases of the circulatory system
CPT/HCPCS: 36415; 36600; 71010; 74000; 80048; 80053; 82728; 82805; 82962; 83540; 83550; 83735; 84100; 84478; 85018; 85025; 85027; 85045; 86850; 86900; 86901; 86920; 87641; 94002; 94003; 94760; C9113; J0360; J0610; J0881; J1815; J2185; J2704; J3480; J3490; P9016

== ENCOUNTER → 2017-05-13 | Day surgery (SDC) | payer MEDICARE ==
[~2017-05-13] VITALS: Ht 182.9 cm; Wt 118.4 kg
[~2017-05-13] MED LIST changes: +ACET100V3 MC; +ACET500T68 PO; +ALBU2.5V5 NEB; +ASPI300S RC; +ASPI325T8 PO; +ATOR10TA60 PEG; +ATOR10TA60 PO; +BISA-42 PO; +BUPIVACAINE MPF 0.5% 30 ML VIAL. ONE; +CALC400T5 PO; +CALC500T PEG; +CHLO15MO2 PO; +DARB60DI SQ; +DEXT15DR5 EACHEYE; +DIPH25CA58 IV; +DIPH50CA PO; +DOCU100C28 PO; +DOXA4TAB3 PO; +FAMO20TA5 PEG; +FAMO20TA5 PO; +FAT250EM9 IV; +FERR-26 PO; +FURO80TA3 PO; +HYDR25TA9 PO; +HYDRALAZINE IVP; +HYDROmorphone 2 MG/ML VIAL IV PRN; +INSU100C SQ; +INSU100V13 SQ; +IPRA3AMP NEB; +ISOS20TA2 PEG; +ISOS60TA2 PO; +IV NORMAL SALINE 1000ML BAG 1,000 ML IV SCH; +KRIL1CAP19 PO; +LIDOCAINE 1% PF 2 ML VIAL. INJ PRN; +LIDOCAINE 1% PF 30 ML VIAL. ONE; +LISI-338 PO; +METO-239 PO; +METO10TA81 IVP; +METO25TA4 IV; +MICO113C TP; +MORP15TA IVP; +MORPHINE SULFATE 2 MG/ML DISP.SYRIN. IV PRN; +MVI IV; +ONDA4TAB11 IVP; +ONDANSETRON PF 4 MG/2 ML VIAL. IV PRN; +PANT40VI IV; +POLY17PO29 PO; +TEMA15CA PO; +TOBR5DRO6 EACHEYE; +UBID100C26 PO; +VITA1CAP PEG; +ZOLP10TA PO; +ZOLP5TAB5 PO; +[UNRECOGNIZED DRUG - CODE] IV; +[UNRECOGNIZED DRUG - CODE] IV; +[UNRECOGNIZED DRUG - CODE] IV; +[UNRECOGNIZED DRUG - OTHER] OP; +fentaNYL PF VIAL 100 MCG/2 ML VIAL IV PRN
[2017-05-13 10:24] LABS: BASO % 1 % (0-3); EOS % 4 % (0-3); LYMPH # 0.3 x10^3/uL (1.0-4.8); LYMPH % 4 % (24-48); MEAN CORPUSCULAR HEMOGLOBIN 31 pg (25-35); MEAN CORPUSCULAR HGB CONC 34 g/dL (31-37); MEAN CORPUSCULAR VOLUME 93 fL (79-100); MONO % 8 % (0-9); NEUT % 83 % (31-73); PLATELET COUNT 140 x10^3/uL (140-400); RED BLOOD COUNT 2.16 x10^6/uL (4.30-5.70); RED CELL DISTRIBUTION WIDTH 17.8 % (11.5-14.5); WHITE BLOOD COUNT 6.9 x10^3/uL (4.0-11.0)
[2017-05-13 10:28] LABS: HEMOGLOBIN 6.7 g/dL (13.0-17.5)
[2017-05-13 10:29] LABS: CALCIUM 8.6 mg/dL (8.5-10.1); CREATININE 5.1 mg/dL (0.7-1.3); GFR 11.6; POTASSIUM 3.6 mmol/L (3.5-5.1)
[2017-05-13 11:17] VITALS: BP 160/56
[2017-05-13 12:00] VITALS: BP 105/100
[2017-05-13 12:44] VITALS: BP 182/43
[2017-05-13 12:45] VITALS: BP 171/54
[2017-05-13 13:20] LABS: % BASOS 2 % (0-3); % EOS 6 % (0-5); ANISOCYTOSIS SLIGHT; PLT ESTIMATE ADEQUATE (ADEQUATE)
[2017-05-13 14:42] VITALS: BP 143/44
== END | disposition home or self-care (01) ==
LOC: SURG 09:22
PROVIDERS: ATTEND Orthopaedic Surgery Sports Medicine
DX: Z53.8 Procedure and treatment not carried out for other reasons (principal); J44.9 Chronic obstructive pulmonary disease, unspecified; E78.00 Pure hypercholesterolemia, unspecified; G47.30 Sleep apnea, unspecified; K21.9 Gastro-esophageal reflux disease without esophagitis; E66.9 Obesity, unspecified; Z68.44 Body mass index [BMI] 60.0-69.9, adult; E11.22 Type 2 diabetes mellitus with diabetic chronic kidney disease; I50.9 Heart failure, unspecified; D64.9 Anemia, unspecified; I13.2 Hypertensive heart and chronic kidney disease with heart failure and with stage 5 chronic kidney disease, or end stage renal disease; N18.6 End stage renal disease; Z95.0 Presence of cardiac pacemaker; Z86.39 Personal history of other endocrine, nutritional and metabolic disease; Z93.0 Tracheostomy status; Z98.42 Cataract extraction status, left eye; Z98.41 Cataract extraction status, right eye; Z99.2 Dependence on renal dialysis; Z88.1 Allergy status to other antibiotic agents; Z91.040 Latex allergy status; Z88.0 Allergy status to penicillin; Z88.8 Allergy status to other drugs, medicaments and biological substances; Z91.048 Other nonmedicinal substance allergy status
CPT/HCPCS: 36415; 36430; 36592; 80048; 85025; 86900; 86901; 86920; 96523; 99211; P9016; 85007; 86850; J3490

== ENCOUNTER 2017-05-28 07:24 | Inpatient (IN) | payer MEDICARE ==
[~2017-05-28] VITALS: Ht 182.9 cm; Wt 109.1 kg
[~2017-05-28 07:24] MED LIST changes: -DOXA4TAB3 PO; -FURO80TA3 PO; -INSU100C SQ; -IV NORMAL SALINE 1000ML BAG 1,000 ML IV SCH; +IV RINGERS,LACTATED 1000ML 1,000 ML IV SCH; -KRIL1CAP19 PO; +LIDOCAINE 1% PF 2 ML VIAL. ID PRN; -LIDOCAINE 1% PF 2 ML VIAL. INJ PRN; -METO-239 PO; -MORPHINE SULFATE 2 MG/ML DISP.SYRIN. IV PRN; +MORPHINE SULFATE 4 MG/ML DISP.SYRIN. IV PRN; -UBID100C26 PO; -ZOLP10TA PO
[2017-05-28] MEDS ORDERED: IV NORMAL SALINE 1000ML BAG 1,000 ML IV ONE (08:15)
[2017-05-28] MEDS ORDERED: ROPIVacaine 0.5% PF 30 ML VIAL. ONE (08:48)
[2017-05-28] MEDS ORDERED: LIDOCAINE 1% Multi-Dose 20 ML VIAL. ONE (09:37)
[2017-05-28] MEDS ORDERED: ACETAMINOPHEN 500 MG TABLET PO PRN (10:30)
[2017-05-28] MEDS ORDERED: fentaNYL PF VIAL 100 MCG/2 ML VIAL IV PRN (10:30)
[2017-05-28] MEDS ORDERED: DEXTROSE 50% 25 GM / 50ML DISP.SYRIN. IV PRN ×2 (10:30)
[2017-05-28] MEDS ORDERED: ONDANSETRON PF 4 MG/2 ML VIAL. IV PRN ×2 (10:30→11:30)
[2017-05-28] MEDS ORDERED: POLYVINYL ALCOHOL 1.4% OPHTH SOLUTION 15ML BOTTLE. OU PRN (10:30)
[2017-05-28] MEDS ORDERED: BISACODYL 5 MG TABLET.DR. PO PRN (10:30)
[2017-05-28] MEDS ORDERED: MORPHINE SULFATE 2 MG/ML DISP.SYRIN. IV PRN (10:30)
[2017-05-28] MEDS ORDERED: diphenhydrAMINE HCL 25 MG CAPSULE PO PRN (10:30)
[2017-05-28] MEDS ORDERED: POLYETHYLENE GLYCOL 3350 17 GM PACKET. PO PRN (10:30)
[2017-05-28] MEDS ORDERED: fentaNYL PF VIAL 100 MCG/2 ML VIAL ONE (10:33)
[2017-05-28] MEDS ORDERED: MIDAZOLAM HCL/PF 2 MG/2 ML VIAL. ONE ×2 (10:33→10:36)
[2017-05-28] MEDS ORDERED: hydrALAZINE 20 MG/ML VIAL. IVP PRN (11:30)
[2017-05-28] MEDS: INSULIN ASPART 300 UNITS/3 ML INSULN.PEN SQ SCH ×2 (12:00→17:00)
[2017-05-28] MEDS: FERROUS SULFATE 325 MG TABLET. PO SCH (12:00)
[2017-05-28] MEDS: METOPROLOL TART IMMED RELEASE 25 MG TABLET. PO SCH ×2 (12:00→18:00)
[2017-05-28] MEDS: CALCIUM CARBONATE 500 MG TAB.CHEW PO SCH ×2 (12:30→17:30)
--- NOTE | 2017-05-28 12:30 | OP ---
DATE OF SURGERY: 05/28/2017 SURGEON: Jon Ponce MD CAKE WRINGER: Prem Molina. PREOPERATIVE DIAGNOSIS: Left forefoot gangrene. POSTOPERATIVE DIAGNOSIS: Left forefoot gangrene. PROCEDURE PERFORMED: Left transmetatarsal amputation. COMPLICATIONS: None. ESTIMATED BLOOD LOSS: 25 mL. TOURNIQUET TIME: 42 minutes. REASON FOR PROCEDURE: The patient is a 61-year-old gentleman with multiple medical comorbidities who had initial toe amputation performed at an outside institution. I had performed an irrigation and debridement of this wound when it dehisced upon his presentation a couple of months ago. He underwent wound VAC treatment at that time; however, he progressed to having a large area of dry gangrene at the plantar aspect adjacent to this toe at his forefoot. He had undergone wound care treatments, but had failed to demonstrate any signs of healing. I had talked to he and his family a couple of times about a below-knee amputation; however, they refused. I had discussed that a transmetatarsal amputation may be reasonable, but probably more reliable is a more proximal amputation. They wished to proceed with the transmet amputation. DESCRIPTION OF PROCEDURE: The patient was greeted in the preoperative area by myself and the correct extremity was marked and verified. He had an ankle block placed by the anesthesiology team prior to coming back to the OR. Once in the OR, he was transferred gently supine to the OR table and secured to the bed with all pressure points padded. He had a conscious sedation administered and monitored by the anesthesia team. We then proceeded to prep and drape his left lower extremity with Betadine paint. I then applied a lap sponge circumferentially around his ankle and using an Esmarch, I exsanguinated his foot and then wrapped the Esmarch circumferentially around his ankle tightly and clamped it in place. I then removed the portion of the Esmarch over his foot and hindfoot. I then inspected his soft tissue wound at his plantar forefoot and preet a line with the marker for my planned incision to save as much soft tissue as possible. I then made a fish mouth-type incision with a plantar based flap. I exposed the metatarsal bones and resected these with a saw and then continued releasing soft tissues and delivered in the forefoot from the operative field with a combination of scalpel and electrocautery. Bleeders were cauterized. I then debulked the plantar wound, taking care to leave abundant soft tissue and subcutaneous tissue. After this, I irrigated out the operative field with sterile normal saline. I then held the plantar flap opposed to the other skin and felt it was too tight, so I took an additional couple millimeters of bone from each metatarsal. I then reapproximated his plantar flap using #1 Vicryl down deep, followed by inverted interrupted 2-0 for subcutaneous tissue and 3-0 nylon in a combination of simple and vertical mattress fashion to close the skin. Prior to completion of wound closure, all counts were reported as correct x 2. No complications. At the conclusion of surgery, his left foot was cleansed and dried. The tourniquet was released. We placed Xeroform gauze, an ABD and abundant soft roll over his foot and especially his hindfoot to pad it. An Sarmad wrap was applied very loosely. He was then awakened from his sedation and transferred gently supine to the recovery room cart. He was taken to PACU in stable and extubated condition. Postop plan is to admit him to the surgical floor on telemetry monitoring. Hospitalist has been consulted to assist with his postoperative management. We will follow along with his course. He will be nonweightbearing left lower extremity. JON PONCE MD DR: ASUNCION/galen JOB#: [id number] / [id number] ANGELA
[2017-05-28] MEDS: LISINOPRIL 5 MG TABLET. PO SCH (13:00)
[2017-05-28] MEDS: ALLOPURINOL 100 MG TABLET. PO SCH (13:00)
[2017-05-28] MEDS: hydroCHLOROthiazide 25 MG TABLET PO SCH (13:00)
[2017-05-28] MEDS: SENNOSIDES/DOCUSATE 8.6/50MG TABLET. PO SCH (13:00)
[2017-05-28] MEDS: PANTOPRAZOLE IV PUSH 40 MG VIAL. IVP SCH ×2 (13:00→21:00)
[2017-05-28] MEDS: DOCUSATE SODIUM 100 MG CAPSULE. PO SCH (13:00)
[2017-05-28] MEDS: TAMSULOSIN 0.4 MG CAP.ER.24H. PO SCH (13:00)
[2017-05-28] MEDS ORDERED: IV NORMAL SALINE 1000ML BAG 1,000 ML IV PRN ×2 (14:37)
[2017-05-28] MEDS ORDERED: diphenhydrAMINE 50 MG/ML VIAL IV PRN ×2 (14:45)
[2017-05-28] MEDS ORDERED: DIALYSIS PATIENT. MC PRN (14:45)
[2017-05-28] MEDS: IPRATRPIUM/ALBUTEROL 0.5/2.5MG 3 ML NEBU. NEB SCH ×2 (15:14→19:14)
[2017-05-28] MEDS: METOCLOPRAMIDE 5 MG TABLET. PO SCH (16:30)
[2017-05-28 19:00] VITALS: BP 176/33
[2017-05-28] MEDS: HYDROcodone/APAP 7.5/325MG 1 TAB TABLET PO PRN ×2 (19:48→23:51)
[2017-05-28 20:00] VITALS: BP 145/17
[2017-05-28] MEDS: IV 1/2 NORMAL SALINE 1,000 ML IV SCH ×2 (20:02→23:41)
[2017-05-28 21:00] VITALS: BP 122/43
[2017-05-28] MEDS: POLYETHYLENE GLYCOL 3350 17 GM PACKET. PO SCH (21:00)
[2017-05-28] MEDS ORDERED: DARBEPOETIN ALFA 60 MCG/0.3 ML DISP.SYRIN. SQ SCH (21:00)
[2017-05-28] MEDS: TEMAZEPAM 15 MG CAPSULE PO SCH (21:34)
[2017-05-28] MEDS: diphenhydrAMINE HCL 25 MG CAPSULE PO SCH (21:34)
[2017-05-28] MEDS: ATORVASTATIN CALCIUM 10 MG TABLET. PO SCH (21:34)
[2017-05-28] MEDS: INSULIN DETEMIR 300 UNITS/3 ML INSULN.PEN. SQ SCH (21:44)
[2017-05-28 22:00] VITALS: BP 187/70
[2017-05-28 23:00] VITALS: BP 157/30
[2017-05-28] MEDS: cloNIDine HCL 0.2 MG TABLET PO SCH (23:48)
[2017-05-29 03:00] VITALS: BP 142/75
[2017-05-29] MEDS: METOPROLOL TARTRATE 5 MG/5 ML VIAL. IVP SCH ×3 (05:54→12:00)
[2017-05-29] MEDS: cloNIDine HCL 0.2 MG TABLET PO SCH ×3 (05:55→22:00)
[2017-05-29] MEDS ORDERED: MAGNESIUM HYDROXIDE 2,400 MG/30 ML ORAL.SUSP. PO PRN (06:00)
[2017-05-29 07:00] VITALS: BP 157/85
[2017-05-29] MEDS: METOCLOPRAMIDE 5 MG TABLET. PO SCH ×4 (07:23→16:34)
[2017-05-29] MEDS: IPRATRPIUM/ALBUTEROL 0.5/2.5MG 3 ML NEBU. NEB SCH ×3 (07:33→19:45)
[2017-05-29] MEDS: INSULIN ASPART 300 UNITS/3 ML INSULN.PEN SQ SCH ×3 (08:00→17:00)
--- NOTE | 2017-05-29 08:09 | PDOC ---
ORTHO PROGRESS NOTES Subjective Some pain in left foot, tolerable. C/o pain at back, not new. Vitals Vital Signs Date Time Temp Pulse Resp B/P (MAP) Pulse Ox O2 Delivery O2 Flow Rate FiO2 05/29/17 07:34 93 Nasal Cannula 2.0 05/29/17 05:55 83 153/81 05/29/17 00:51 20 05/28/17 23:00 98.1 98.1 Labs Laboratory Tests Test 05/28/17 10:13 05/28/17 13:31 05/28/17 15:09 05/28/17 20:47 Glucose (Fingerstick) 84 mg/dL (70-99) 90 mg/dL (70-99) 79 mg/dL (70-99) 133 mg/dL (70-99) Test 05/29/17 07:50 Glucose (Fingerstick) 85 mg/dL (70-99) Laboratory Tests Test 05/28/17 10:13 05/28/17 13:31 05/28/17 15:09 05/28/17 20:47 Glucose (Fingerstick) 84 mg/dL (70-99) 90 mg/dL (70-99) 79 mg/dL (70-99) 133 mg/dL (70-99) Test 05/29/17 07:50 Glucose (Fingerstick) 85 mg/dL (70-99) Notes A and A in bed LLE: dressing intact with some bloody drainage Assessment and Plan appreciate Hospitalist and Renal help Case Mgmt NWB JOSELITO PAYNE II, MD May 29, 2017 08:09
[2017-05-29] MEDS: PANTOPRAZOLE IV PUSH 40 MG VIAL. IVP SCH (08:59)
[2017-05-29] MEDS ORDERED: MVI IV SCH (09:00)
[2017-05-29] MEDS ORDERED: VIT K IV SCH (09:00)
[2017-05-29] MEDS ORDERED: PEDI NO 1 IV SCH (09:00)
[2017-05-29] MEDS: DOCUSATE SODIUM 100 MG CAPSULE. PO SCH (09:02)
[2017-05-29] MEDS: TAMSULOSIN 0.4 MG CAP.ER.24H. PO SCH (09:02)
[2017-05-29] MEDS: ALLOPURINOL 100 MG TABLET. PO SCH (09:02)
[2017-05-29] MEDS: hydroCHLOROthiazide 25 MG TABLET PO SCH (09:03)
[2017-05-29] MEDS: LISINOPRIL 5 MG TABLET. PO SCH (09:03)
[2017-05-29] MEDS: HYDROcodone/APAP 7.5/325MG 1 TAB TABLET PO PRN ×2 (09:03→14:55)
[2017-05-29] MEDS: FERROUS SULFATE 325 MG TABLET. PO SCH (09:03)
[2017-05-29] MEDS: SENNOSIDES/DOCUSATE 8.6/50MG TABLET. PO SCH (09:04)
[2017-05-29] MEDS: CALCIUM CARBONATE 500 MG TAB.CHEW PO SCH ×3 (09:04→16:34)
[2017-05-29 09:24] LABS: HEMATOCRIT 21.7 % (39.0-53.0); HEMOGLOBIN 7.3 g/dL (13.0-17.5); RED BLOOD COUNT 2.33 x10^6/uL (4.30-5.70); RED CELL DISTRIBUTION WIDTH 17.4 % (11.5-14.5)
[2017-05-29 09:52] LABS: ALBUMIN 2.1 g/dL (3.4-5.0); ALBUMIN/GLOBULIN RATIO 0.5 (1.0-1.7); CALCIUM 8.1 mg/dL (8.5-10.1); CREATININE 4.2 mg/dL (0.7-1.3); GFR 14.5; POTASSIUM 4.1 mmol/L (3.5-5.1); TOTAL BILIRUBIN 0.7 mg/dL (0.2-1.0); TOTAL PROTEIN 6.5 g/dL (6.4-8.2)
[2017-05-29 11:00] VITALS: BP 155/42
--- NOTE | 2017-05-29 11:48 | PDOC ---
Renal-Progress Notes Subjective Notes Notes PAIN WHEN HE TRIES TO WT BEAR History of Present Illness Hx of present illness STABLE Vitals Vitals Vital Signs Date Time Temp Pulse Resp B/P (MAP) Pulse Ox O2 Delivery O2 Flow Rate FiO2 05/29/17 11:29 95 Nasal Cannula 2.0 05/29/17 09:03 83 157/85 05/29/17 07:00 97.7 18 97.7 Weight Weight [ ] Labs Labs Laboratory Tests Test 05/28/17 13:31 05/28/17 15:09 05/28/17 20:47 05/29/17 07:50 Glucose (Fingerstick) 90 mg/dL (70-99) 79 mg/dL (70-99) 133 mg/dL (70-99) 85 mg/dL (70-99) Test 05/29/17 09:20 White Blood Count 6.0 x10^3/uL (4.0-11.0) Red Blood Count 2.33 x10^6/uL (4.30-5.70) Hemoglobin 7.3 g/dL (13.0-17.5) Hematocrit 21.7 % (39.0-53.0) Mean Corpuscular Volume 93 fL (79-100) Mean Corpuscular Hemoglobin 31 pg (25-35) Mean Corpuscular Hemoglobin Concent 34 g/dL (31-37) Red Cell Distribution Width 17.4 % (11.5-14.5) Platelet Count 115 x10^3/uL (140-400) Sodium Level 136 mmol/L (136-145) Potassium Level 4.1 mmol/L (3.5-5.1) Chloride Level 99 mmol/L (98-107) Carbon Dioxide Level 32 mmol/L (21-32) Anion Gap 5 (6-14) Blood Urea Nitrogen 28 mg/dL (8-26) Creatinine 4.2 mg/dL (0.7-1.3) Estimated GFR (Cockcroft-Gault) 14.5 BUN/Creatinine Ratio 7 (6-20) Glucose Level 121 mg/dL (70-99) Calcium Level 8.1 mg/dL (8.5-10.1) Total Bilirubin 0.7 mg/dL (0.2-1.0) Aspartate Amino Transf (AST/SGOT) 16 U/L (15-37) Alanine Aminotransferase (ALT/SGPT) 16 U/L (16-63) Alkaline Phosphatase 109 U/L (46-116) Total Protein 6.5 g/dL (6.4-8.2) Albumin 2.1 g/dL (3.4-5.0) Albumin/Globulin Ratio 0.5 (1.0-1.7) Review of Systems Constitutional: yes: weakness, alert, oriented Ears/Nose/Throat: Yes: no symptom reported Eyes: Yes: no symptom reported Pulmonary: Yes no symptom reported Cardiovascular: Yes no symptom reported Gastrointestional: Yes: no symptom reported Genitourinary: Yes: no symptom reported Musculoskeletal: Yes: joint pain Skin: Yes no symptom reported Psychiatric/Neurological: Yes: no symptom reported Endocrine: Yes: no symptom reported Physical Exam General Appearance: no apparent distress Skin: warm Respiratory: bilateral CTA Heart: S1S2, RRR Abdomen: soft, bowel sounds present Genitourinary: bladder flat Extremities: pulses present, atrophy Neurology: alert, oriented Assessment Assessment IMP ESRD ANEMIA DM II HTN S/P LEFT TMA PLAN HD HERE LAST NIGHT HD AGAIN TOMORROW CONT WITH ARANESP THERAPY CM TO SEE PT BACK TO OR [facility] SYED DOTY MD May 29, 2017 11:48
--- NOTE | 2017-05-29 12:24 | PDOC2 ---
CONSULT Date of Consult Date of Consult DATE: 05/29/17 TIME: 12:23 Reason for Consult Reason for Consult: IM management Referring Physician Referring Physician: dr. Lee Identification/Chief Complaint Chief Complaint left foot amputation Problems: Source Source: Chart review, Patient History of Present Illness Reason for Visit: 61yo M, esrd on HD, multiple commorbidities, with recent intubation with trach which is capped now, ESRD previous on PD now on HD, left toes osteo s/p amputation, gib post 2 EGD and clips and epi injection for gastric ulcer was sent from [facility] for left foot amputation. Pt got left foot gangree,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, wound closed , no drainage, no need abx as per ortho. He got HD yesterday. Currently pt feels ok, eats mechanical soft diet, trach capped. IPC was asked for IM management. Past Medical History Cardiovascular: CAD, HTN, [place] Pulmonary: COPD Renal/: Chronic renal failure Endocrine: Diabetes Past Surgical History Past Surgical History: CABG, No pertinent history Family History Family History: Hypertension Social History ALCOHOL: none Drugs: None Lives: with Family Current Medications Current Medications Current Medications Ondansetron HCl (Zofran) 4 mg PRN Q6HRS PRN IV NAUSEA/VOMITING; Start 05/28/17 at 07:00; Stop 05/29/17 at 06:59; Status DC Fentanyl Citrate (Fentanyl 2ml Vial) 25 mcg PRN Q5MIN PRN IV MILD PAIN; Start 05/28/17 at 07:00; Stop 05/29/17 at 06:59; Status DC Fentanyl Citrate (Fentanyl 2ml Vial) 50 mcg PRN Q5MIN PRN IV MODERATE PAIN; Start 05/28/17 at 07:00; Stop 05/29/17 at 06:59; Status DC Morphine Sulfate 1 mg PRN Q10MIN PRN IV SEVERE PAIN; Start 05/28/17 at 07:00; Stop 05/29/17 at 06:59; Status DC Ringer's Solution 1,000 ml @ 30 mls/hr Q24H IV ; Start 05/28/17 at 07:00; Stop 05/28/17 at 18:59; Status DC Lidocaine HCl (Xylocaine-Mpf 1% Vial) 2 ml PRN 1X PRN ID IV START; Start at 07:00; Stop 05/29/17 at 06:59; Status DC Hydromorphone HCl (Dilaudid) 0.5 mg PRN Q10MIN PRN IV SEV PAIN, Second choice; Start 05/28/17 at 07:00; Stop 05/29/17 at 06:59; Status DC Levofloxacin/ Dextrose 100 ml @ 100 mls/hr 1X PREOP PRN IV PRIOR TO PROCEDURE ; Start 05/28/17 at 06:00; Stop 05/28/17 at 18:00; Status DC Lidocaine HCl 30 ml STK-MED ONCE .ROUTE Last administered on 05/28/17 10:36; Start 05/28/17 at 05:40; Stop 05/28/17 at 06:41; Status DC Bupivacaine HCl (Sensorcaine Mpf 0.5%) 30 ml STK-MED ONCE .ROUTE Last administered on 05/28/17 10:36; Start 05/28/17 at 05:40; Stop 05/28/17 at 06:41 ; Status DC Sodium Chloride 1,000 ml @ 75 mls/hr 1X ONCE IV ; Start 05/28/17 at 08:15; Stop 05/28/17 at 21:34; Status DC Ropivacaine (Naropin 0.5%) 30 ml STK-MED ONCE .ROUTE ; Start 05/28/17 at 08:48; Stop 05/28/17 at 08:49; Status DC Lidocaine HCl 20 ml STK-MED ONCE .ROUTE ; Start 05/28/17 at 09:37; Stop at 09:38; Status DC Morphine Sulfate 2 mg PRN Q1HR PRN IV PAIN; Start 05/28/17 at 10:30 Fentanyl Citrate (Fentanyl 2ml Vial) 25 mcg PRN Q1HR PRN IV PAIN; Start at 10:30 Senna/Docusate Sodium (Senna Plus) 1 tab DAILY PO Last administered on 09:04; Start 05/28/17 at 13:00 Polyethylene Glycol (miraLAX PACKET) 17 gm PRN DAILY PRN PO CONSTIPATION; Start 05/28/17 at 10:30 Sodium Chloride 1,000 ml @ 75 mls/hr [id number] IV Last administered on 20:02; Start 05/28/17 at 10:21 Ondansetron HCl (Zofran) 4 mg PRN Q4HRS PRN IV NAUSEA/VOMITING; Start 05/28/17 at 10:30 Magnesium Hydroxide (Milk Of Magnesia) 2,400 mg 1X PRN PRN PO CONSTIPATION; Start 05/29/17 at 06:00; Stop 05/30/17 at 05:59 Bisacodyl (Dulcolax Supp) 10 mg 1X PRN PRN GA CONSTIPATION; Start 05/29/17 at 16:00; Stop 05/30/17 at 15:59 Acetaminophen/ Hydrocodone Bitart (Lortab 7.5/325) 1 tab PRN Q4HRS PRN PO PAIN Last administered on 05/29/17 09:03; Start 05/28/17 at 10:30 Acetaminophen/ Hydrocodone Bitart (Lortab 7.5/325) 2 tab PRN Q4HRS PRN PO PAIN Last administered on 05/28/17 23:51; Start 05/28/17 at 10:30 Dextrose (Dextrose 50%-Water Syringe) 12.5 gm PRN Q15MIN PRN IV SEE COMMENTS; Start 05/28/17 at 10:30 Levofloxacin/ Dextrose 100 ml @ 100 mls/hr Q12HR IV ; Start 05/28/17 at 21:00; Stop 05/28/17 at 22:17; Status DC Acetaminophen (Tylenol) 1,000 mg PRN TID PRN PO pain; Start 05/28/17 at 10:30 Allopurinol (Zyloprim) 100 mg DAILY PO Last administered on 05/29/17 09:02; Start 05/28/17 at 13:00 Atorvastatin Calcium (Lipitor) 10 mg HS PO Last administered on 05/28/17 21:34 ; Start 05/28/17 at 21:00 Bisacodyl (Dulcolax Tab) 20 mg PRN Q72HRS PRN PO CONSTIPATION; Start 05/28/17 at 10:30 Clonidine HCl (Catapres) 0.2 mg Q8HRS PO Last administered on 05/29/17 05:55; Start 05/28/17 at 14:00 Darbepoetin Fredi (Aranesp) 60 mcg WEEKLY SQ Last administered on 05/28/17 21: 42; Start 05/28/17 at 21:00 Diphenhydramine HCl (Benadryl) 25 mg PRN BID PRN PO itching; Start 05/28/17 at 10:30 Docusate Sodium (Colace) 200 mg DAILY PO Last administered on 05/29/17 09:02; Start 05/28/17 at 13:00 Ferrous Sulfate (Feosol) 325 mg DAILYWBKFT PO Last administered on 05/29/17 09 :03; Start 05/28/17 at 12:00 Hydrochlorothiazide (Hydrodiuril) 25 mg DAILY PO Last administered on 09:03; Start 05/28/17 at 13:00 Albuterol/ Ipratropium (Duoneb) 3 ml TID NEB Last administered on 05/29/17 11: 28; Start 05/28/17 at 14:00 Lisinopril (Prinivil) 5 mg DAILY PO Last administered on 05/29/17 09:03; Start 05/28/17 at 13:00 Metoclopramide HCl (Reglan) 5 mg TIDAC PO Last administered on 05/29/17 11:32 ; Start 05/28/17 at 11:30 Metoprolol Tartrate (Lopressor) 5 mg Q6HRS PO ; Start 05/28/17 at 12:00; Stop 05/28/17 at 22:17; Status DC Pantoprazole Sodium (Protonix Vial) 40 mg BID IVP Last administered on 08:59; Start 05/28/17 at 13:00 Polyethylene Glycol (miraLAX PACKET) 17 gm HS PO ; Start 05/28/17 at 21:00 Tamsulosin HCl (Flomax) 0.4 mg DAILY PO Last administered on 05/29/17 09:02; Start 05/28/17 at 13:00 Temazepam (Restoril) 15 mg QHS PO Last administered on 05/28/17 21:34; Start 05/28/17 at 21:00 Calcium Carbonate/ Glycine (Tums) 500 mg TIDPC PO Last administered on 09:04; Start 05/28/17 at 12:30 Artificial Tears (Artificial Tears) 1 drop PRN Q15MIN PRN OU DRY EYES; Start 05/28/17 at 10:30 Diphenhydramine HCl (Benadryl) 50 mg QHS PO Last administered on 05/28/17 21: 34; Start 05/28/17 at 21:00 Insulin Detemir (Levemir) 15 units QHS SQ Last administered on 05/28/17 21:44 ; Start 05/28/17 at 21:00 Non-Formulary Medication 10 ml DAILY IV ; Start 05/29/17 at 09:00; Stop at 09:00; Status DC Ondansetron HCl (Zofran) 4 mg PRN Q6HRS PRN IV NAUSEA/VOMITING; Start 05/28/17 at 11:30 Hydralazine HCl (Apresoline) 10 mg PRN Q4HRS PRN IVP HYPERTENSION, SEE COMMENTS Last administered on 05/28/17 19:49; Start 05/28/17 at 11:30 Insulin Aspart (NovoLOG) 0-5 UNITS TIDWMEALS SQ ; Start 05/28/17 at 12:00 Dextrose (Dextrose 50%-Water Syringe) 12.5 gm PRN Q15MIN PRN IV SEE COMMENTS; Start 05/28/17 at 10:30; Stop 05/28/17 at 13:22; Status DC Fentanyl Citrate (Fentanyl 2ml Vial) 100 mcg STK-MED ONCE .ROUTE ; Start at 10:33; Stop 05/28/17 at 10:34; Status DC Midazolam HCl (Versed) 2 mg STK-MED ONCE .ROUTE ; Start 05/28/17 at 10:33; Stop 05/28/17 at 10:34; Status DC Midazolam HCl (Versed) 2 mg STK-MED ONCE .ROUTE ; Start 05/28/17 at 10:36; Stop 05/28/17 at 10:37; Status DC Sodium Chloride 1,000 ml @ 1,000 mls/hr Q1H PRN IV hypotension; Start 05/28/17 at 14:37; Stop 05/28/17 at 20:36; Status DC Diphenhydramine HCl (Benadryl) 25 mg 1X PRN PRN IV ITCHING; Start 05/28/17 at 14:45; Stop 05/29/17 at 14:44 Diphenhydramine HCl (Benadryl) 25 mg 1X PRN PRN IV ITCHING; Start 05/28/17 at 14:45; Stop 05/29/17 at 14:44 Sodium Chloride 1,000 ml @ 400 mls/hr Q2H30M PRN IV PATENCY; Start 05/28/17 at 14:37; Stop 05/29/17 at 02:36; Status DC Info (PHARMACY MONITORING -- do not chart) 1 each PRN DAILY PRN MC SEE COMMENTS ; Start 05/28/17 at 14:45 Levofloxacin/ Dextrose 100 ml @ 100 mls/hr DAILY06 IV Last administered on 06:00; Start 05/29/17 at 06:00; Stop 05/30/17 at 06:59 Metoprolol Tartrate (Lopressor) 5 mg Q6HRS IVP Last administered on 05/29/17 05:54; Start 05/29/17 at 00:00 Active Scripts Active Reported [Hydralazine] 10 Mg IVP PRN Q4HRS PRN Tamsulosin Hcl 0.4 Mg Cap.er.24h 1 Cap PO DAILY Artificial Tears Eye Drops (Dextran 70/Hypromellose) 15 Ml Drops 1 Drop EACHEYE PRN Q15MIN PRN Dulcolax (Bisacodyl) 5 Mg Tablet.dr 20 Mg PO PRN Q72HRS PRN Temazepam 15 Mg Capsule 1 Cap PO QHS Docusate Sodium 100 Mg Capsule 200 Mg PO DAILY Aranesp Syringe (Darbepoetin Fredi In Polysorbat) 60 Mcg/0.3 Ml Disp.syrin 60 Mcg SQ WEEKLY Ferrous Sulfate 325 Mg Tablet 1 Tab PO DAILY Metoprolol Tartrate 25 Mg Tablet 5 Mg IV Q6HRS Duoneb 0.5-3(2.5) Mg/3 Ml (Albuterol/Ipratropium) 3 Ml Ampul.neb 3 Ml NEB TID Morphine Sulfate 15 Mg Tablet 2 Mg IVP PRN Q4HRS PRN Protonix Iv (Pantoprazole Sodium) 40 Mg Vial 40 Mg IV BID Ondansetron Hcl 4 Mg Tablet 4 Mg IVP PRN Q6HRS Tums Ultra (Calcium Carbonate) 400 Mg Tab.chew 500 Mg PO TID Atorvastatin Calcium 10 Mg Tablet 10 Mg PO HS Allopurinol 100 Mg Tablet 1 Tab PO DAILY Albuterol Sulfate Neb Soln (Albuterol Sulfate) 2.5 Mg/3 Ml Vial.neb 1 Vial NEB PRN Q4HRS Acetaminophen 500 Mg Tablet 1,000 Mg PO PRN Albuminar-25 (Albumin Human) 50 Ml Vial 50 Ml IV PRN Clonidine Hcl 0.2 Mg Tablet 1 Tab PO PRN Benadryl (Diphenhydramine Hcl) 25 Mg Capsule 1 Dis.syr IV PRN Diphenhydramine Hcl 50 Mg Capsule 1 Cap PO QHS Infuvite (Mvi, Pedi No.1 With Vit K) 5 Ml Vial 10 Ml IV DAILY Miralax (Polyethylene Glycol 3350) 17 Gm Powd.pack 1 Packet PO HS Hydrochlorothiazide Tablet (Hydrochlorothiazide) 25 Mg Tablet 1 Tab PO DAILY Lisinopril 5 Mg Tablet 1 Tab PO DAILY Reglan (Metoclopramide Hcl) 10 Mg Tablet 5 Mg IVP TID Levemir (Insulin Detemir) 100 Unit/1 Ml Vial 15 Unit SQ HS Allergies Allergies: Coded Allergies: Penicillins (Verified Allergy, Severe, HIVES AND ITCHING., 05/28/17) HAS TOLERATED AMOXICILLIN, ZOSYN zinc (Verified Allergy, Severe, HIVES AND ITCHING, 05/28/17) Latex, Natural Rubber (Verified Allergy, Intermediate, FOREMAN AND IRRITATES SKIN, 05/28/17) adhesive (Verified Allergy, Intermediate, FOREMAN AND IRRITATES SKIN, ) PAPER TAPE IS OK amlodipine (Verified Allergy, Intermediate, 05/28/17) capsaicin (Verified Allergy, Intermediate, 05/28/17) clindamycin (Verified Allergy, Intermediate, 05/28/17) insulin glargine (Verified Allergy, Intermediate, 05/28/17) reports that it has zinc in it Physical Exam Physical Exam has trach, capped left foot post sx, wrapped with dressing, clean. General: Alert, Oriented X3, Cooperative HEENT: Atraumatic, PERRLA Lungs: Clear to auscultation Heart: Regular rate, Normal S1, Normal S2 Abdomen: Normal bowel sounds, Soft Extremities: No clubbing, No cyanosis Skin: No rashes, No breakdown Neuro: Normal speech, Normal tone Psych/Mental Status: Mental status NL MUSCULOSKELETAL: No joint tenderness, No deformity Vitals VITALS Vital Signs Date Time Temp Pulse Resp B/P (MAP) Pulse Ox O2 Delivery O2 Flow Rate FiO2 05/29/17 11:29 95 Nasal Cannula 2.0 05/29/17 09:03 83 157/85 05/29/17 07:00 97.7 18 97.7 Labs Labs Laboratory Tests Test 05/28/17 10:13 05/28/17 13:31 05/28/17 15:09 05/28/17 20:47 Glucose (Fingerstick) 84 mg/dL (70-99) 90 mg/dL (70-99) 79 mg/dL (70-99) 133 mg/dL (70-99) Test 05/29/17 07:50 05/29/17 09:20 05/29/17 11:42 Glucose (Fingerstick) 85 mg/dL (70-99) 134 mg/dL (70-99) White Blood Count 6.0 x10^3/uL (4.0-11.0) Red Blood Count 2.33 x10^6/uL (4.30-5.70) Hemoglobin 7.3 g/dL (13.0-17.5) Hematocrit 21.7 % (39.0-53.0) Mean Corpuscular Volume 93 fL (79-100) Mean Corpuscular Hemoglobin 31 pg (25-35) Mean Corpuscular Hemoglobin Concent 34 g/dL (31-37) Red Cell Distribution Width 17.4 % (11.5-14.5) Platelet Count 115 x10^3/uL (140-400) Sodium Level 136 mmol/L (136-145) Potassium Level 4.1 mmol/L (3.5-5.1) Chloride Level 99 mmol/L (98-107) Carbon Dioxide Level 32 mmol/L (21-32) Anion Gap 5 (6-14) Blood Urea Nitrogen 28 mg/dL (8-26) Creatinine 4.2 mg/dL (0.7-1.3) Estimated GFR (Cockcroft-Gault) 14.5 BUN/Creatinine Ratio 7 (6-20) Glucose Level 121 mg/dL (70-99) Calcium Level 8.1 mg/dL (8.5-10.1) Total Bilirubin 0.7 mg/dL (0.2-1.0) Aspartate Amino Transf (AST/SGOT) 16 U/L (15-37) Alanine Aminotransferase (ALT/SGPT) 16 U/L (16-63) Alkaline Phosphatase 109 U/L (46-116) Total Protein 6.5 g/dL (6.4-8.2) Albumin 2.1 g/dL (3.4-5.0) Albumin/Globulin Ratio 0.5 (1.0-1.7) Laboratory Tests Test 05/28/17 13:31 05/28/17 15:09 05/28/17 20:47 05/29/17 07:50 Glucose (Fingerstick) 90 mg/dL (70-99) 79 mg/dL (70-99) 133 mg/dL (70-99) 85 mg/dL (70-99) Test 05/29/17 09:20 05/29/17 11:42 White Blood Count 6.0 x10^3/uL (4.0-11.0) Red Blood Count 2.33 x10^6/uL (4.30-5.70) Hemoglobin 7.3 g/dL (13.0-17.5) Hematocrit 21.7 % (39.0-53.0) Mean Corpuscular Volume 93 fL (79-100) Mean Corpuscular Hemoglobin 31 pg (25-35) Mean Corpuscular Hemoglobin Concent 34 g/dL (31-37) Red Cell Distribution Width 17.4 % (11.5-14.5) Platelet Count 115 x10^3/uL (140-400) Sodium Level 136 mmol/L (136-145) Potassium Level 4.1 mmol/L (3.5-5.1) Chloride Level 99 mmol/L (98-107) Carbon Dioxide Level 32 mmol/L (21-32) Anion Gap 5 (6-14) Blood Urea Nitrogen 28 mg/dL (8-26) Creatinine 4.2 mg/dL (0.7-1.3) Estimated GFR (Cockcroft-Gault) 14.5 BUN/Creatinine Ratio 7 (6-20) Glucose Level 121 mg/dL (70-99) Calcium Level 8.1 mg/dL (8.5-10.1) Total Bilirubin 0.7 mg/dL (0.2-1.0) Aspartate Amino Transf (AST/SGOT) 16 U/L (15-37) Alanine Aminotransferase (ALT/SGPT) 16 U/L (16-63) Alkaline Phosphatase 109 U/L (46-116) Total Protein 6.5 g/dL (6.4-8.2) Albumin 2.1 g/dL (3.4-5.0) Albumin/Globulin Ratio 0.5 (1.0-1.7) Glucose (Fingerstick) 134 mg/dL (70-99) Assessment/Plan Assessment/Plan Left foot gangree,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 recent left toes osteo post toes amputation with wound dehiscence recent Recurrent UGIB recent gib EGD SHOWED gastric ulcer post clip and epi injection recent acute on chronic resp failure, post intubation, trach capped ESRD previous on PD, now on HD 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
[2017-05-29] MEDS: METOPROLOL TART IMMED RELEASE 25 MG TABLET. PO SCH ×2 (12:48→20:28)
[2017-05-29 15:00] VITALS: BP 121/37
[2017-05-29] MEDS ORDERED: BISACODYL 10 MG SUPP.RECT. PR PRN (16:00)
[2017-05-29] MEDS: MULTIVITAMIN with MINERAL TABLET. PO SCH (16:00)
[2017-05-29] MEDS: PANTOPRAZOLE 40 MG TABLET.DR. PO SCH (16:34)
[2017-05-29 20:00] VITALS: BP 123/82
[2017-05-29] MEDS: TEMAZEPAM 15 MG CAPSULE PO SCH (20:25)
[2017-05-29] MEDS: ATORVASTATIN CALCIUM 10 MG TABLET. PO SCH (20:26)
[2017-05-29] MEDS: diphenhydrAMINE HCL 25 MG CAPSULE PO SCH (20:26)
[2017-05-29] MEDS: POLYETHYLENE GLYCOL 3350 17 GM PACKET. PO SCH (20:30)
[2017-05-29] MEDS: INSULIN DETEMIR 300 UNITS/3 ML INSULN.PEN. SQ SCH (20:44)
[2017-05-29 23:00] VITALS: BP 135/37
[2017-05-30 03:00] VITALS: BP 129/23
[2017-05-30] MEDS: PANTOPRAZOLE 40 MG TABLET.DR. PO SCH (05:48)
[2017-05-30] MEDS: HYDROcodone/APAP 7.5/325MG 1 TAB TABLET PO PRN ×3 (05:48→16:21)
[2017-05-30] MEDS: METOCLOPRAMIDE 5 MG TABLET. PO SCH ×2 (05:48→11:56)
[2017-05-30] MEDS: cloNIDine HCL 0.2 MG TABLET PO SCH (06:00)
[2017-05-30 06:21] LABS: HEMATOCRIT 21.4 % (39.0-53.0); HEMOGLOBIN 7.3 g/dL (13.0-17.5); RED BLOOD COUNT 2.32 x10^6/uL (4.30-5.70); RED CELL DISTRIBUTION WIDTH 17.8 % (11.5-14.5)
[2017-05-30 06:27] LABS: CALCIUM 8.2 mg/dL (8.5-10.1); CREATININE 5.6 mg/dL (0.7-1.3); GFR 10.4; POTASSIUM 4.4 mmol/L (3.5-5.1)
[2017-05-30] MEDS ORDERED: IV NORMAL SALINE 1000ML BAG 1,000 ML IV PRN ×2 (06:35)
[2017-05-30] MEDS ORDERED: DIALYSIS PATIENT. MC PRN (06:45)
[2017-05-30] MEDS ORDERED: diphenhydrAMINE 50 MG/ML VIAL IV PRN ×2 (06:45)
[2017-05-30] MEDS: FERROUS SULFATE 325 MG TABLET. PO SCH (08:00)
[2017-05-30] MEDS: INSULIN ASPART 300 UNITS/3 ML INSULN.PEN SQ SCH ×2 (08:00→11:57)
--- NOTE | 2017-05-30 08:08 | PDOC ---
ORTHO PROGRESS NOTES Subjective Some "twinges" of pain at operative site. Vitals Vital Signs Date Time Temp Pulse Resp B/P (MAP) Pulse Ox O2 Delivery O2 Flow Rate FiO2 05/30/17 06:48 Room Air 05/30/17 06:00 81 157/31 05/30/17 03:00 98.9 18 93 98.9 05/29/17 11:29 2.0 Labs Laboratory Tests Test 05/28/17 10:13 05/28/17 13:31 05/28/17 14:50 05/28/17 15:09 Glucose (Fingerstick) 84 mg/dL (70-99) 90 mg/dL (70-99) 79 mg/dL (70-99) Hepatitis B Surface Antigen Negative (Negative) Test 05/28/17 20:47 05/29/17 07:50 05/29/17 09:20 05/29/17 11:42 Glucose (Fingerstick) 133 mg/dL (70-99) 85 mg/dL (70-99) 134 mg/dL (70-99) White Blood Count 6.0 x10^3/uL (4.0-11.0) Red Blood Count 2.33 x10^6/uL (4.30-5.70) Hemoglobin 7.3 g/dL (13.0-17.5) Hematocrit 21.7 % (39.0-53.0) Mean Corpuscular Volume 93 fL (79-100) Mean Corpuscular Hemoglobin 31 pg (25-35) Mean Corpuscular Hemoglobin Concent 34 g/dL (31-37) Red Cell Distribution Width 17.4 % (11.5-14.5) Platelet Count 115 x10^3/uL (140-400) Sodium Level 136 mmol/L (136-145) Potassium Level 4.1 mmol/L (3.5-5.1) Chloride Level 99 mmol/L (98-107) Carbon Dioxide Level 32 mmol/L (21-32) Anion Gap 5 (6-14) Blood Urea Nitrogen 28 mg/dL (8-26) Creatinine 4.2 mg/dL (0.7-1.3) Estimated GFR (Cockcroft-Gault) 14.5 BUN/Creatinine Ratio 7 (6-20) Glucose Level 121 mg/dL (70-99) Calcium Level 8.1 mg/dL (8.5-10.1) Total Bilirubin 0.7 mg/dL (0.2-1.0) Aspartate Amino Transf (AST/SGOT) 16 U/L (15-37) Alanine Aminotransferase (ALT/SGPT) 16 U/L (16-63) Alkaline Phosphatase 109 U/L (46-116) Total Protein 6.5 g/dL (6.4-8.2) Albumin 2.1 g/dL (3.4-5.0) Albumin/Globulin Ratio 0.5 (1.0-1.7) Test 05/29/17 16:43 05/29/17 20:36 05/30/17 06:00 Glucose (Fingerstick) 162 mg/dL (70-99) 150 mg/dL (70-99) White Blood Count 7.0 x10^3/uL (4.0-11.0) Red Blood Count 2.32 x10^6/uL (4.30-5.70) Hemoglobin 7.3 g/dL (13.0-17.5) Hematocrit 21.4 % (39.0-53.0) Mean Corpuscular Volume 92 fL (79-100) Mean Corpuscular Hemoglobin 31 pg (25-35) Mean Corpuscular Hemoglobin Concent 34 g/dL (31-37) Red Cell Distribution Width 17.8 % (11.5-14.5) Platelet Count 125 x10^3/uL (140-400) Sodium Level 136 mmol/L (136-145) Potassium Level 4.4 mmol/L (3.5-5.1) Chloride Level 97 mmol/L (98-107) Carbon Dioxide Level 31 mmol/L (21-32) Anion Gap 8 (6-14) Blood Urea Nitrogen 43 mg/dL (8-26) Creatinine 5.6 mg/dL (0.7-1.3) Estimated GFR (Cockcroft-Gault) 10.4 Glucose Level 90 mg/dL (70-99) Calcium Level 8.2 mg/dL (8.5-10.1) Laboratory Tests Test 05/29/17 09:20 05/29/17 11:42 05/29/17 16:43 05/29/17 20:36 White Blood Count 6.0 x10^3/uL (4.0-11.0) Red Blood Count 2.33 x10^6/uL (4.30-5.70) Hemoglobin 7.3 g/dL (13.0-17.5) Hematocrit 21.7 % (39.0-53.0) Mean Corpuscular Volume 93 fL (79-100) Mean Corpuscular Hemoglobin 31 pg (25-35) Mean Corpuscular Hemoglobin Concent 34 g/dL (31-37) Red Cell Distribution Width 17.4 % (11.5-14.5) Platelet Count 115 x10^3/uL (140-400) Sodium Level 136 mmol/L (136-145) Potassium Level 4.1 mmol/L (3.5-5.1) Chloride Level 99 mmol/L (98-107) Carbon Dioxide Level 32 mmol/L (21-32) Anion Gap 5 (6-14) Blood Urea Nitrogen 28 mg/dL (8-26) Creatinine 4.2 mg/dL (0.7-1.3) Estimated GFR (Cockcroft-Gault) 14.5 BUN/Creatinine Ratio 7 (6-20) Glucose Level 121 mg/dL (70-99) Calcium Level 8.1 mg/dL (8.5-10.1) Total Bilirubin 0.7 mg/dL (0.2-1.0) Aspartate Amino Transf (AST/SGOT) 16 U/L (15-37) Alanine Aminotransferase (ALT/SGPT) 16 U/L (16-63) Alkaline Phosphatase 109 U/L (46-116) Total Protein 6.5 g/dL (6.4-8.2) Albumin 2.1 g/dL (3.4-5.0) Albumin/Globulin Ratio 0.5 (1.0-1.7) Glucose (Fingerstick) 134 mg/dL (70-99) 162 mg/dL (70-99) 150 mg/dL (70-99) Test 05/30/17 06:00 White Blood Count 7.0 x10^3/uL (4.0-11.0) Red Blood Count 2.32 x10^6/uL (4.30-5.70) Hemoglobin 7.3 g/dL (13.0-17.5) Hematocrit 21.4 % (39.0-53.0) Mean Corpuscular Volume 92 fL (79-100) Mean Corpuscular Hemoglobin 31 pg (25-35) Mean Corpuscular Hemoglobin Concent 34 g/dL (31-37) Red Cell Distribution Width 17.8 % (11.5-14.5) Platelet Count 125 x10^3/uL (140-400) Sodium Level 136 mmol/L (136-145) Potassium Level 4.4 mmol/L (3.5-5.1) Chloride Level 97 mmol/L (98-107) Carbon Dioxide Level 31 mmol/L (21-32) Anion Gap 8 (6-14) Blood Urea Nitrogen 43 mg/dL (8-26) Creatinine 5.6 mg/dL (0.7-1.3) Estimated GFR (Cockcroft-Gault) 10.4 Glucose Level 90 mg/dL (70-99) Calcium Level 8.2 mg/dL (8.5-10.1) Notes A and A in dialysis LLE: some bloody drainage, flap ok Assessment and Plan L TMA for chronic wound;osteo awaiting placement NWB LLJOSELITO ROWLEY II, MD May 30, 2017 08:08
[2017-05-30] MEDS: CALCIUM CARBONATE 500 MG TAB.CHEW PO SCH ×2 (08:30→13:28)
[2017-05-30] MEDS: DOCUSATE SODIUM 100 MG CAPSULE. PO SCH (09:00)
[2017-05-30] MEDS: IPRATRPIUM/ALBUTEROL 0.5/2.5MG 3 ML NEBU. NEB SCH ×2 (09:00→11:29)
--- NOTE | 2017-05-30 10:27 | DISCH ---
DISCHARGE INSTRUCTIONS Condition on Discharge Condition on Discharge: Stable Activity After Discharge Activity Instructions for Disc: Other, see below Bathing Instructions: Shower-keep dressing dry Weight Bearing Status after Di: Non weight bearing Diet after Discharge Diet after Discharge: Renal Dialysis Wound Incision Care Wound/Incision Care: Keep wound/cast CDI, Keep wound elevated, Change dressing Contacting the DRDiomedes after DC Call your doctor for: Concerns you may have Follow-Up Follow up with: Rosa in 2wks JOSELITO PONCE II, MD May 30, 2017 10:27
--- NOTE | 2017-05-30 11:37 | PDOC ---
Renal-Progress Notes Subjective Notes Notes FEELING BETTER History of Present Illness Hx of present illness STABLE Vitals Vitals Vital Signs Date Time Temp Pulse Resp B/P (MAP) Pulse Ox O2 Delivery O2 Flow Rate FiO2 05/30/17 11:30 94 Room Air 05/30/17 06:00 81 157/31 05/30/17 03:00 98.9 18 98.9 05/29/17 11:29 2.0 Weight Weight [ ] Labs Labs Laboratory Tests Test 05/29/17 11:42 05/29/17 16:43 05/29/17 20:36 05/30/17 06:00 Glucose (Fingerstick) 134 mg/dL (70-99) 162 mg/dL (70-99) 150 mg/dL (70-99) White Blood Count 7.0 x10^3/uL (4.0-11.0) Red Blood Count 2.32 x10^6/uL (4.30-5.70) Hemoglobin 7.3 g/dL (13.0-17.5) Hematocrit 21.4 % (39.0-53.0) Mean Corpuscular Volume 92 fL (79-100) Mean Corpuscular Hemoglobin 31 pg (25-35) Mean Corpuscular Hemoglobin Concent 34 g/dL (31-37) Red Cell Distribution Width 17.8 % (11.5-14.5) Platelet Count 125 x10^3/uL (140-400) Sodium Level 136 mmol/L (136-145) Potassium Level 4.4 mmol/L (3.5-5.1) Chloride Level 97 mmol/L (98-107) Carbon Dioxide Level 31 mmol/L (21-32) Anion Gap 8 (6-14) Blood Urea Nitrogen 43 mg/dL (8-26) Creatinine 5.6 mg/dL (0.7-1.3) Estimated GFR (Cockcroft-Gault) 10.4 Glucose Level 90 mg/dL (70-99) Calcium Level 8.2 mg/dL (8.5-10.1) Review of Systems Constitutional: yes: weakness, alert, oriented Ears/Nose/Throat: Yes: no symptom reported Eyes: Yes: no symptom reported Pulmonary: Yes no symptom reported Cardiovascular: Yes no symptom reported Gastrointestional: Yes: no symptom reported Genitourinary: Yes: no symptom reported Musculoskeletal: Yes: joint pain Skin: Yes no symptom reported Psychiatric/Neurological: Yes: no symptom reported Endocrine: Yes: no symptom reported Physical Exam General Appearance: no apparent distress Skin: warm Respiratory: bilateral CTA Heart: S1S2, RRR Abdomen: soft, bowel sounds present Genitourinary: bladder flat Extremities: pulses present, atrophy Neurology: alert, oriented Assessment Assessment IMP ESRD ANEMIA DM II HTN S/P LEFT TMA PLAN HD TODAY UF TO DW CONT WITH ARANESP THERAPY CM TO SEE PT TO [facility] SYED DOTY MD May 30, 2017 11:37
[2017-05-30] MEDS: MULTIVITAMIN with MINERAL TABLET. PO SCH (11:54)
[2017-05-30] MEDS: hydroCHLOROthiazide 25 MG TABLET PO SCH (11:55)
[2017-05-30] MEDS: SENNOSIDES/DOCUSATE 8.6/50MG TABLET. PO SCH (11:55)
[2017-05-30] MEDS: METOPROLOL TART IMMED RELEASE 25 MG TABLET. PO SCH (11:55)
[2017-05-30] MEDS: TAMSULOSIN 0.4 MG CAP.ER.24H. PO SCH (11:55)
[2017-05-30] MEDS: ALLOPURINOL 100 MG TABLET. PO SCH (11:55)
[2017-05-30] MEDS: LISINOPRIL 5 MG TABLET. PO SCH (11:56)
--- NOTE | 2017-05-30 13:35 | PDOC ---
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 DM2 ON insulin dysphagia resolved morbid obesity, BMI 32.5 acute on chronic anemia, esrd, gib thrombocytopenia moderate malnutrition plan: post op care, fu with ortho cont HD , PD held, PD cath still in place cont home meds on levemir ,ssi mechanical soft diet change iv meds to po SW consult for rehab PTOT protonix bid dvt ppx fu with ortho stable to dc to rehab thanks for asking [facility] for consult History of Present Illness History of Present Illness ROS: no fever, chills, sob or chest pain feels ok Vitals Vitals Vital Signs Date Time Temp Pulse Resp B/P (MAP) Pulse Ox O2 Delivery O2 Flow Rate FiO2 05/30/17 13:29 Room Air 05/30/17 11:56 89 142/33 05/30/17 11:54 96.0 05/30/17 11:30 94 05/30/17 03:00 98.9 18 98.9 Physical Exam General: Alert, Oriented X3, Cooperative Heart: Regular rate, Normal S1, Normal S2 Lungs: Clear Abdomen: Normal bowel sounds, Soft Extremities: No clubbing, No cyanosis Skin: No rashes, No breakdown Labs LABS Laboratory Tests Test 05/29/17 16:43 05/29/17 20:36 05/30/17 06:00 05/30/17 11:56 Glucose (Fingerstick) 162 mg/dL (70-99) 150 mg/dL (70-99) 75 mg/dL (70-99) White Blood Count 7.0 x10^3/uL (4.0-11.0) Red Blood Count 2.32 x10^6/uL (4.30-5.70) Hemoglobin 7.3 g/dL (13.0-17.5) Hematocrit 21.4 % (39.0-53.0) Mean Corpuscular Volume 92 fL (79-100) Mean Corpuscular Hemoglobin 31 pg (25-35) Mean Corpuscular Hemoglobin Concent 34 g/dL (31-37) Red Cell Distribution Width 17.8 % (11.5-14.5) Platelet Count 125 x10^3/uL (140-400) Sodium Level 136 mmol/L (136-145) Potassium Level 4.4 mmol/L (3.5-5.1) Chloride Level 97 mmol/L (98-107) Carbon Dioxide Level 31 mmol/L (21-32) Anion Gap 8 (6-14) Blood Urea Nitrogen 43 mg/dL (8-26) Creatinine 5.6 mg/dL (0.7-1.3) Estimated GFR (Cockcroft-Gault) 10.4 Glucose Level 90 mg/dL (70-99) Calcium Level 8.2 mg/dL (8.5-10.1) Comment Review of Relevant I have reviewed the following items den (where applicable) has been applied. Labs Laboratory Tests Test 05/28/17 14:50 05/28/17 15:09 05/28/17 20:47 05/29/17 07:50 Hepatitis B Surface Antigen Negative (Negative) Glucose (Fingerstick) 79 mg/dL (70-99) 133 mg/dL (70-99) 85 mg/dL (70-99) Test 05/29/17 09:20 05/29/17 11:42 05/29/17 16:43 05/29/17 20:36 White Blood Count 6.0 x10^3/uL (4.0-11.0) Red Blood Count 2.33 x10^6/uL (4.30-5.70) Hemoglobin 7.3 g/dL (13.0-17.5) Hematocrit 21.7 % (39.0-53.0) Mean Corpuscular Volume 93 fL (79-100) Mean Corpuscular Hemoglobin 31 pg (25-35) Mean Corpuscular Hemoglobin Concent 34 g/dL (31-37) Red Cell Distribution Width 17.4 % (11.5-14.5) Platelet Count 115 x10^3/uL (140-400) Sodium Level 136 mmol/L (136-145) Potassium Level 4.1 mmol/L (3.5-5.1) Chloride Level 99 mmol/L (98-107) Carbon Dioxide Level 32 mmol/L (21-32) Anion Gap 5 (6-14) Blood Urea Nitrogen 28 mg/dL (8-26) Creatinine 4.2 mg/dL (0.7-1.3) Estimated GFR (Cockcroft-Gault) 14.5 BUN/Creatinine Ratio 7 (6-20) Glucose Level 121 mg/dL (70-99) Calcium Level 8.1 mg/dL (8.5-10.1) Total Bilirubin 0.7 mg/dL (0.2-1.0) Aspartate Amino Transf (AST/SGOT) 16 U/L (15-37) Alanine Aminotransferase (ALT/SGPT) 16 U/L (16-63) Alkaline Phosphatase 109 U/L (46-116) Total Protein 6.5 g/dL (6.4-8.2) Albumin 2.1 g/dL (3.4-5.0) Albumin/Globulin Ratio 0.5 (1.0-1.7) Glucose (Fingerstick) 134 mg/dL (70-99) 162 mg/dL (70-99) 150 mg/dL (70-99) Test 05/30/17 06:00 05/30/17 11:56 White Blood Count 7.0 x10^3/uL (4.0-11.0) Red Blood Count 2.32 x10^6/uL (4.30-5.70) Hemoglobin 7.3 g/dL (13.0-17.5) Hematocrit 21.4 % (39.0-53.0) Mean Corpuscular Volume 92 fL (79-100) Mean Corpuscular Hemoglobin 31 pg (25-35) Mean Corpuscular Hemoglobin Concent 34 g/dL (31-37) Red Cell Distribution Width 17.8 % (11.5-14.5) Platelet Count 125 x10^3/uL (140-400) Sodium Level 136 mmol/L (136-145) Potassium Level 4.4 mmol/L (3.5-5.1) Chloride Level 97 mmol/L (98-107) Carbon Dioxide Level 31 mmol/L (21-32) Anion Gap 8 (6-14) Blood Urea Nitrogen 43 mg/dL (8-26) Creatinine 5.6 mg/dL (0.7-1.3) Estimated GFR (Cockcroft-Gault) 10.4 Glucose Level 90 mg/dL (70-99) Calcium Level 8.2 mg/dL (8.5-10.1) Glucose (Fingerstick) 75 mg/dL (70-99) Laboratory Tests Test 05/29/17 16:43 05/29/17 20:36 05/30/17 06:00 05/30/17 11:56 Glucose (Fingerstick) 162 mg/dL (70-99) 150 mg/dL (70-99) 75 mg/dL (70-99) White Blood Count 7.0 x10^3/uL (4.0-11.0) Red Blood Count 2.32 x10^6/uL (4.30-5.70) Hemoglobin 7.3 g/dL (13.0-17.5) Hematocrit 21.4 % (39.0-53.0) Mean Corpuscular Volume 92 fL (79-100) Mean Corpuscular Hemoglobin 31 pg (25-35) Mean Corpuscular Hemoglobin Concent 34 g/dL (31-37) Red Cell Distribution Width 17.8 % (11.5-14.5) Platelet Count 125 x10^3/uL (140-400) Sodium Level 136 mmol/L (136-145) Potassium Level 4.4 mmol/L (3.5-5.1) Chloride Level 97 mmol/L (98-107) Carbon Dioxide Level 31 mmol/L (21-32) Anion Gap 8 (6-14) Blood Urea Nitrogen 43 mg/dL (8-26) Creatinine 5.6 mg/dL (0.7-1.3) Estimated GFR (Cockcroft-Gault) 10.4 Glucose Level 90 mg/dL (70-99) Calcium Level 8.2 mg/dL (8.5-10.1) Medications Current Medications Ondansetron HCl (Zofran) 4 mg PRN Q6HRS PRN IV NAUSEA/VOMITING; Start 05/28/17 at 07:00; Stop 05/29/17 at 06:59; Status DC Fentanyl Citrate (Fentanyl 2ml Vial) 25 mcg PRN Q5MIN PRN IV MILD PAIN; Start 05/28/17 at 07:00; Stop 05/29/17 at 06:59; Status DC Fentanyl Citrate (Fentanyl 2ml Vial) 50 mcg PRN Q5MIN PRN IV MODERATE PAIN; Start 05/28/17 at 07:00; Stop 05/29/17 at 06:59; Status DC Morphine Sulfate 1 mg PRN Q10MIN PRN IV SEVERE PAIN; Start 05/28/17 at 07:00; Stop 05/29/17 at 06:59; Status DC Ringer's Solution 1,000 ml @ 30 mls/hr Q24H IV ; Start 05/28/17 at 07:00; Stop 05/28/17 at 18:59; Status DC Lidocaine HCl (Xylocaine-Mpf 1% Vial) 2 ml PRN 1X PRN ID IV START; Start at 07:00; Stop 05/29/17 at 06:59; Status DC Hydromorphone HCl (Dilaudid) 0.5 mg PRN Q10MIN PRN IV SEV PAIN, Second choice; Start 05/28/17 at 07:00; Stop 05/29/17 at 06:59; Status DC Levofloxacin/ Dextrose 100 ml @ 100 mls/hr 1X PREOP PRN IV PRIOR TO PROCEDURE ; Start 05/28/17 at 06:00; Stop 05/28/17 at 18:00; Status DC Lidocaine HCl 30 ml STK-MED ONCE .ROUTE Last administered on 05/28/17 10:36; Start 05/28/17 at 05:40; Stop 05/28/17 at 06:41; Status DC Bupivacaine HCl (Sensorcaine Mpf 0.5%) 30 ml STK-MED ONCE .ROUTE Last administered on 05/28/17 10:36; Start 05/28/17 at 05:40; Stop 05/28/17 at 06:41 ; Status DC Sodium Chloride 1,000 ml @ 75 mls/hr 1X ONCE IV ; Start 05/28/17 at 08:15; Stop 05/28/17 at 21:34; Status DC Ropivacaine (Naropin 0.5%) 30 ml STK-MED ONCE .ROUTE ; Start 05/28/17 at 08:48; Stop 05/28/17 at 08:49; Status DC Lidocaine HCl 20 ml STK-MED ONCE .ROUTE ; Start 05/28/17 at 09:37; Stop at 09:38; Status DC Morphine Sulfate 2 mg PRN Q1HR PRN IV PAIN; Start 05/28/17 at 10:30 Fentanyl Citrate (Fentanyl 2ml Vial) 25 mcg PRN Q1HR PRN IV PAIN; Start at 10:30 Senna/Docusate Sodium (Senna Plus) 1 tab DAILY PO Last administered on 11:55; Start 05/28/17 at 13:00 Polyethylene Glycol (miraLAX PACKET) 17 gm PRN DAILY PRN PO CONSTIPATION; Start 05/28/17 at 10:30 Sodium Chloride 1,000 ml @ 75 mls/hr [id number] IV Last administered on 20:02; Start 05/28/17 at 10:21; Stop 05/29/17 at 12:24; Status DC Ondansetron HCl (Zofran) 4 mg PRN Q4HRS PRN IV NAUSEA/VOMITING; Start 05/28/17 at 10:30 Magnesium Hydroxide (Milk Of Magnesia) 2,400 mg 1X PRN PRN PO CONSTIPATION; Start 05/29/17 at 06:00; Stop 05/30/17 at 05:59; Status DC Bisacodyl (Dulcolax Supp) 10 mg 1X PRN PRN PA CONSTIPATION; Start 05/29/17 at 16:00; Stop 05/30/17 at 15:59 Acetaminophen/ Hydrocodone Bitart (Lortab 7.5/325) 1 tab PRN Q4HRS PRN PO PAIN Last administered on 05/30/17 11:54; Start 05/28/17 at 10:30 Acetaminophen/ Hydrocodone Bitart (Lortab 7.5/325) 2 tab PRN Q4HRS PRN PO PAIN Last administered on 05/29/17 14:55; Start 05/28/17 at 10:30 Dextrose (Dextrose 50%-Water Syringe) 12.5 gm PRN Q15MIN PRN IV SEE COMMENTS; Start 05/28/17 at 10:30 Levofloxacin/ Dextrose 100 ml @ 100 mls/hr Q12HR IV ; Start 05/28/17 at 21:00; Stop 05/28/17 at 22:17; Status DC Acetaminophen (Tylenol) 1,000 mg PRN TID PRN PO pain; Start 05/28/17 at 10:30 Allopurinol (Zyloprim) 100 mg DAILY PO Last administered on 05/30/17 11:55; Start 05/28/17 at 13:00 Atorvastatin Calcium (Lipitor) 10 mg HS PO Last administered on 05/29/17 20:26 ; Start 05/28/17 at 21:00 Bisacodyl (Dulcolax Tab) 20 mg PRN Q72HRS PRN PO CONSTIPATION; Start 05/28/17 at 10:30 Clonidine HCl (Catapres) 0.2 mg Q8HRS PO Last administered on 05/29/17 05:55; Start 05/28/17 at 14:00 Darbepoetin Fredi (Aranesp) 60 mcg WEEKLY SQ Last administered on 05/28/17 21: 42; Start 05/28/17 at 21:00 Diphenhydramine HCl (Benadryl) 25 mg PRN BID PRN PO itching; Start 05/28/17 at 10:30 Docusate Sodium (Colace) 200 mg DAILY PO Last administered on 05/29/17 09:02; Start 05/28/17 at 13:00 Ferrous Sulfate (Feosol) 325 mg DAILYWBKFT PO Last administered on 05/29/17 09 :03; Start 05/28/17 at 12:00 Hydrochlorothiazide (Hydrodiuril) 25 mg DAILY PO Last administered on 11:55; Start 05/28/17 at 13:00 Albuterol/ Ipratropium (Duoneb) 3 ml TID NEB Last administered on 05/30/17 11: 29; Start 05/28/17 at 14:00 Lisinopril (Prinivil) 5 mg DAILY PO Last administered on 05/30/17 11:56; Start 05/28/17 at 13:00 Metoclopramide HCl (Reglan) 5 mg TIDAC PO Last administered on 05/30/17 11:56 ; Start 05/28/17 at 11:30 Metoprolol Tartrate (Lopressor) 5 mg Q6HRS PO ; Start 05/28/17 at 12:00; Stop 05/28/17 at 22:17; Status DC Pantoprazole Sodium (Protonix Vial) 40 mg BID IVP Last administered on 08:59; Start 05/28/17 at 13:00; Stop 05/29/17 at 12:27; Status DC Polyethylene Glycol (miraLAX PACKET) 17 gm HS PO ; Start 05/28/17 at 21:00 Tamsulosin HCl (Flomax) 0.4 mg DAILY PO Last administered on 05/30/17 11:55; Start 05/28/17 at 13:00 Temazepam (Restoril) 15 mg QHS PO Last administered on 05/29/17 20:25; Start 05/28/17 at 21:00 Calcium Carbonate/ Glycine (Tums) 500 mg TIDPC PO Last administered on 13:28; Start 05/28/17 at 12:30 Artificial Tears (Artificial Tears) 1 drop PRN Q15MIN PRN OU DRY EYES; Start 05/28/17 at 10:30 Diphenhydramine HCl (Benadryl) 50 mg QHS PO Last administered on 05/29/17 20: 26; Start 05/28/17 at 21:00 Insulin Detemir (Levemir) 15 units QHS SQ Last administered on 05/29/17 20:44 ; Start 05/28/17 at 21:00 Non-Formulary Medication 10 ml DAILY IV ; Start 05/29/17 at 09:00; Stop at 09:00; Status DC Ondansetron HCl (Zofran) 4 mg PRN Q6HRS PRN IV NAUSEA/VOMITING; Start 05/28/17 at 11:30 Hydralazine HCl (Apresoline) 10 mg PRN Q4HRS PRN IVP HYPERTENSION, SEE COMMENTS Last administered on 05/28/17 19:49; Start 05/28/17 at 11:30 Insulin Aspart (NovoLOG) 0-5 UNITS TIDWMEALS SQ ; Start 05/28/17 at 12:00 Dextrose (Dextrose 50%-Water Syringe) 12.5 gm PRN Q15MIN PRN IV SEE COMMENTS; Start 05/28/17 at 10:30; Stop 05/28/17 at 13:22; Status DC Fentanyl Citrate (Fentanyl 2ml Vial) 100 mcg STK-MED ONCE .ROUTE ; Start at 10:33; Stop 05/28/17 at 10:34; Status DC Midazolam HCl (Versed) 2 mg STK-MED ONCE .ROUTE ; Start 05/28/17 at 10:33; Stop 05/28/17 at 10:34; Status DC Midazolam HCl (Versed) 2 mg STK-MED ONCE .ROUTE ; Start 05/28/17 at 10:36; Stop 05/28/17 at 10:37; Status DC Sodium Chloride 1,000 ml @ 1,000 mls/hr Q1H PRN IV hypotension; Start 05/28/17 at 14:37; Stop 05/28/17 at 20:36; Status DC Diphenhydramine HCl (Benadryl) 25 mg 1X PRN PRN IV ITCHING; Start 05/28/17 at 14:45; Stop 05/29/17 at 14:44; Status DC Diphenhydramine HCl (Benadryl) 25 mg 1X PRN PRN IV ITCHING; Start 05/28/17 at 14:45; Stop 05/29/17 at 14:44; Status DC Sodium Chloride 1,000 ml @ 400 mls/hr Q2H30M PRN IV PATENCY; Start 05/28/17 at 14:37; Stop 05/29/17 at 02:36; Status DC Info (PHARMACY MONITORING -- do not chart) 1 each PRN DAILY PRN MC SEE COMMENTS ; Start 05/28/17 at 14:45 Levofloxacin/ Dextrose 100 ml @ 100 mls/hr DAILY06 IV Last administered on 05:48; Start 05/29/17 at 06:00; Stop 05/30/17 at 06:59; Status DC Metoprolol Tartrate (Lopressor) 5 mg Q6HRS IVP Last administered on 05/29/17 05:54; Start 05/29/17 at 00:00; Stop 05/29/17 at 12:27; Status DC Metoprolol Tartrate (Lopressor) 25 mg BID PO Last administered on 05/30/17 11: 55; Start 05/29/17 at 13:00 Pantoprazole Sodium (Protonix) 40 mg BIDAC PO Last administered on 05/30/17 05 :48; Start 05/29/17 at 16:30 Multivitamins (Thera M Plus) 1 tab DAILY PO Last administered on 05/30/17 11: 54; Start 05/29/17 at 16:00 Sodium Chloride 1,000 ml @ 1,000 mls/hr Q1H PRN IV hypotension; Start 05/30/17 at 06:35; Stop 05/30/17 at 12:34; Status DC Diphenhydramine HCl (Benadryl) 25 mg 1X PRN PRN IV ITCHING; Start 05/30/17 at 06:45; Stop 05/31/17 at 06:44 Diphenhydramine HCl (Benadryl) 25 mg 1X PRN PRN IV ITCHING; Start 05/30/17 at 06:45; Stop 05/31/17 at 06:44 Sodium Chloride 1,000 ml @ 400 mls/hr Q2H30M PRN IV PATENCY; Start 05/30/17 at 06:35; Stop 05/30/17 at 18:34 Info (PHARMACY MONITORING -- do not chart) 1 each PRN DAILY PRN MC SEE COMMENTS ; Start 05/30/17 at 06:45 Active Scripts Active Reported [Hydralazine] 10 Mg IVP PRN Q4HRS PRN Tamsulosin Hcl 0.4 Mg Cap.er.24h 1 Cap PO DAILY Artificial Tears Eye Drops (Dextran 70/Hypromellose) 15 Ml Drops 1 Drop EACHEYE PRN Q15MIN PRN Dulcolax (Bisacodyl) 5 Mg Tablet.dr 20 Mg PO PRN Q72HRS PRN Temazepam 15 Mg Capsule 1 Cap PO QHS Docusate Sodium 100 Mg Capsule 200 Mg PO DAILY Aranesp Syringe (Darbepoetin Fredi In Polysorbat) 60 Mcg/0.3 Ml Disp.syrin 60 Mcg SQ WEEKLY Ferrous Sulfate 325 Mg Tablet 1 Tab PO DAILY Metoprolol Tartrate 25 Mg Tablet 5 Mg IV Q6HRS Duoneb 0.5-3(2.5) Mg/3 Ml (Albuterol/Ipratropium) 3 Ml Ampul.neb 3 Ml NEB TID Morphine Sulfate 15 Mg Tablet 2 Mg IVP PRN Q4HRS PRN Protonix Iv (Pantoprazole Sodium) 40 Mg Vial 40 Mg IV BID Ondansetron Hcl 4 Mg Tablet 4 Mg IVP PRN Q6HRS Tums Ultra (Calcium Carbonate) 400 Mg Tab.chew 500 Mg PO TID Atorvastatin Calcium 10 Mg Tablet 10 Mg PO HS Allopurinol 100 Mg Tablet 1 Tab PO DAILY Albuterol Sulfate Neb Soln (Albuterol Sulfate) 2.5 Mg/3 Ml Vial.neb 1 Vial NEB PRN Q4HRS Acetaminophen 500 Mg Tablet 1,000 Mg PO PRN Albuminar-25 (Albumin Human) 50 Ml Vial 50 Ml IV PRN Clonidine Hcl 0.2 Mg Tablet 1 Tab PO PRN Benadryl (Diphenhydramine Hcl) 25 Mg Capsule 1 Dis.syr IV PRN Diphenhydramine Hcl 50 Mg Capsule 1 Cap PO QHS Infuvite (Mvi, Pedi No.1 With Vit K) 5 Ml Vial 10 Ml IV DAILY Miralax (Polyethylene Glycol 3350) 17 Gm Powd.pack 1 Packet PO HS Hydrochlorothiazide Tablet (Hydrochlorothiazide) 25 Mg Tablet 1 Tab PO DAILY Lisinopril 5 Mg Tablet 1 Tab PO DAILY Reglan (Metoclopramide Hcl) 10 Mg Tablet 5 Mg IVP TID Levemir (Insulin Detemir) 100 Unit/1 Ml Vial 15 Unit SQ HS Vitals/I & O Vital Sign - Last 24 Hours 05/29/17 05/29/17 05/29/17 05/29/17 14:55 15:00 16:09 19:45 Temp 97.7 97.7 Pulse 86 Resp 20 B/P (MAP) 121/37 (65) Pulse Ox 95 94 94 O2 Delivery Room Air Room Air Room Air Room Air 05/29/17 05/29/17 05/29/17 05/29/17 20:00 20:00 20:28 22:00 Temp 97.9 97.9 Pulse 98 98 88 Resp 20 B/P (MAP) 123/82 (96) 113/82 135/37 Pulse Ox 94 O2 Delivery Room Air Room Air 05/29/17 05/30/17 05/30/17 05/30/17 23:00 03:00 05:48 06:00 Temp 98.1 98.9 98.1 98.9 Pulse 89 91 81 Resp 18 18 B/P (MAP) 135/37 (69) 129/23 (58) 157/31 Pulse Ox 96 93 O2 Delivery Room Air Room Air Room Air 05/30/17 05/30/17 05/30/17 05/30/17 11:30 11:30 11:54 11:55 Pulse 89 B/P (MAP) 142/33 Pulse Ox 94 O2 Delivery Room Air Room Air Room Air O2 Flow Rate 96.0 05/30/17 05/30/17 11:56 13:29 Pulse 89 B/P (MAP) 142/33 O2 Delivery Room Air MARA ABEBE MD May 30, 2017 13:35
[2017-05-30 15:00] VITALS: BP 145/59
--- NOTE | 2017-06-02 12:47 | PATHOLOGY ---
PATHOLOGY REPORT * * * * * * * * FINAL DIAGNOSIS: Left foot, transmetatarsal amputation: - Status post left third toe amputation. - Focal ulceration, gangrenous necrosis, acute cellulitis, and focal organizing venous thrombosis of third toe amputation site. - Focal acute osteomyelitis of bone of third toe amputation site. - Focal ulceration, gangrenous necrosis, and acute cellulitis of medial aspect of great toe with focal acute osteomyelitis of underlying bone. - Skin, subcutaneous tissue, and bone amputation margin appear viable. (JPM:mgr; 06/02/2017) REPORT ELECTRONICALLY SIGNED BY: Bakari Pino M.D. DATE/TIME: 06/02/2017 12:46 * * * * * * * * GROSS PATHOLOGY: The specimen is received in formalin, labeled "Botlee Farris and left metatarsal", is a portion of left foot amputated through the metatarsal bone measuring 10.5 cm from the distal tip of big toe to the bone resection margin (proximal margin) and 10.0 cm in width. The skin, underlying soft tissue and bone resection margin is smooth and appear grossly viable. The hodges-white skin is diffusely desquamed. There are four toes, all with intact thickened, yellow nails except the third toe, which is previously amputated. The third toe previous amputation site is black brown necrotic soft tissue that extends to the plantar surface and measures 3.2 x 2.6 cm. The second toe distal tip has a 1.0 x 0.7 cm dark brown firm necrotic area. Additionally there is a 1.2 x 0.8 cm ulcer on the medial aspect of the great toe 7.2 cm from the proximal skin resection margin. Photographs are taken. Apartment [employer] sections submitted as follows: A1 skin and underlying soft tissue resection margin (proximal) A2 bone resection margin (proximal) from third toe after decalcification A3 third toe pervious amputation site, necrotic area and big toe medial ulcer inked black A4 third toe pervious amputation site to underlying bone (inked black) and big toe ulcer to bone after decalcification (SWS; 05/29/2017) INITIAL CPT CODE(S): 03811, 94207 Professional services performed by [facility] at [facility] [address] [place] [id number] Technical services performed by [facility] at [address] [place] [address], [place] [address]. SPECIMEN(S) RECEIVED: A.Left metatarsal CLINICAL HISTORY: Dry gangrene PATIENT: FARRISAMALIA /AGE: 4 1955 (Age: 61) PATIENT #: [id number] ALT CASE #: SPECIMEN COLLECTION DATE: 05/28/2017 SPECIMEN RECEIVED DATE: 05/28/2017 [facility] - [id number] [place] [address] - PHONE: [phone] * * * END OF REPORT * * *
--- NOTE | 2017-06-10 15:06 | PDOC ---
BRIEF OPERATIVE NOTE Date: May 28, 2017 Pre-Op Diagnosis Chronic wound L forefoot Post-Op Diagnosis same Procedure Performed L TMA Surgeon Rosa Anesthesia Type: General Blood Loss 25mL Specimens Obtained forefoot to Path Complications none JOSELITO PONCE II, MD Jun 10, 2017 15:06
[2017-07-01] MEDS ORDERED: PRAV10TA2 PO (13:01)
[2017-07-01] MEDS ORDERED: DEXT15DR5 EACHEYE (13:03)
[2017-07-01] MEDS ORDERED: FURO80TA3 PO (13:05)
[2017-07-01] MEDS ORDERED: SODI650T PO (13:05)
[2017-07-01] MEDS ORDERED: FOLI0.8T3 PO (13:06)
[2017-07-01] MEDS ORDERED: ASPI-482 PO (13:06)
[2017-07-01] MEDS ORDERED: INSU100C SQ (13:07)
[2017-07-01] MEDS ORDERED: DOXA4TAB3 PO (13:07)
[2017-07-01] MEDS ORDERED: ZOLP10TA PO (13:08)
[2017-07-01] MEDS ORDERED: CALC667T PO (13:08)
[2017-07-01] MEDS ORDERED: METO-239 PO (13:08)
[2017-07-01] MEDS ORDERED: POTA20TA82 PO (13:09)
[2017-07-01] MEDS ORDERED: CHOL10003 PO (13:09)
[2017-07-01] MEDS ORDERED: UBID100C26 PO (13:10)
[2017-07-01] MEDS ORDERED: KRIL1CAP19 PO (13:10)
[2017-07-01] MEDS ORDERED: CARV25TA2 PO (13:14)
== END 2017-05-30 16:25 | DRG 239 ==
LOC: SURG 07:24 → OBSVTOIN 12:32 → 4 NORTH 12:32
PROVIDERS: ADMIT Orthopaedic Surgery Sports Medicine; ATTEND Orthopaedic Surgery Sports Medicine
PROC: 0Y6N0ZB Detachment at Left Foot, Partial 2nd Ray, Open Approach (ICD-10-PCS; 2017-05-28)
PROC: 0Y6N0ZC Detachment at Left Foot, Partial 3rd Ray, Open Approach (ICD-10-PCS; 2017-05-28)
PROC: 0Y6N0ZD Detachment at Left Foot, Partial 4th Ray, Open Approach (ICD-10-PCS; 2017-05-28)
PROC: 0Y6N0ZF Detachment at Left Foot, Partial 5th Ray, Open Approach (ICD-10-PCS; 2017-05-28)
PROC: 5A1D70Z Performance of Urinary Filtration, Intermittent, Less than 6 Hours Per Day (ICD-10-PCS; 2017-05-28)
PROC: 0Y6N0Z9 Detachment at Left Foot, Partial 1st Ray, Open Approach (ICD-10-PCS; principal; 2017-05-28 09:25)
DX: E11.52 Type 2 diabetes mellitus with diabetic peripheral angiopathy with gangrene (principal); N18.6 End stage renal disease; J96.10 Chronic respiratory failure, unspecified whether with hypoxia or hypercapnia; D69.6 Thrombocytopenia, unspecified; E44.0 Moderate protein-calorie malnutrition; Z93.0 Tracheostomy status; E11.22 Type 2 diabetes mellitus with diabetic chronic kidney disease; E66.01 Morbid (severe) obesity due to excess calories; R65.10 Systemic inflammatory response syndrome (SIRS) of non-infectious origin without acute organ dysfunction; I12.0 Hypertensive chronic kidney disease with stage 5 chronic kidney disease or end stage renal disease; D63.1 Anemia in chronic kidney disease; Z68.32 Body mass index [BMI] 32.0-32.9, adult; I25.10 Atherosclerotic heart disease of native coronary artery without angina pectoris; J44.9 Chronic obstructive pulmonary disease, unspecified; Z82.49 Family history of ischemic heart disease and other diseases of the circulatory system; Z87.11 Personal history of peptic ulcer disease; Z89.429 Acquired absence of other toe(s), unspecified side; Z95.1 Presence of aortocoronary bypass graft; Z99.2 Dependence on renal dialysis; I25.2 Old myocardial infarction; Z91.040 Latex allergy status; Z88.6 Allergy status to analgesic agent; Z88.0 Allergy status to penicillin; Z88.8 Allergy status to other drugs, medicaments and biological substances
CPT/HCPCS: 36415; 80048; 80053; 82962; 85027; 87340; 87341; 88305; 88311; 94250; 94640; 94760; C9113; J0360; J0881; J1815; J1956; J2250; J2795; J3010; J3490; J7620; J8597; Q0163

== ENCOUNTER 2017-07-02 07:53 | Inpatient (IN) | payer MEDICARE ==
[~2017-07-02] VITALS: Ht 182.9 cm; Wt 98.0 kg
[2017-07-02] VITALS (11 sets, daily range): BP systolic 128–151; BP diastolic 70–87
[~2017-07-02 07:53] MED LIST changes: +DOXA4TAB3 PO; +FURO80TA3 PO; +INSU100C SQ; +KRIL1CAP19 PO; +METO-239 PO; +PROCHLORPERAZINE 10 MG/2 ML VIAL. IV PRN; +UBID100C26 PO; +ZOLP10TA PO
[2017-07-02] MEDS ORDERED: CLINDAMYCIN PREMIX 900 MG/50 ML BAG IV ONE (08:00)
[2017-07-02] MEDS ORDERED: CLINDAMYCIN 900MG PREMIX 50 ML IV ONE ×2 (08:19→08:45)
[2017-07-02] MEDS ORDERED: MORPHINE SULFATE 4 MG/ML DISP.SYRIN. IV PRN (08:30)
[2017-07-02] MEDS ORDERED: MAGNESIUM HYDROXIDE 2,400 MG/30 ML ORAL.SUSP. PO PRN (08:30)
[2017-07-02] MEDS ORDERED: MAG HYDROX/ALUMINUM HYD/SIMETH 30 ML ORAL.SUSP PO PRN (08:30)
[2017-07-02] MEDS ORDERED: DEXTROSE 50% 25 GM / 50ML DISP.SYRIN. IV PRN (08:30)
[2017-07-02] MEDS ORDERED: oxyCODONE IR 5 MG TABLET PO PRN (08:30)
[2017-07-02] MEDS ORDERED: PROPOFOL 20 ML IV ONE (08:44)
[2017-07-02] MEDS ORDERED: LIDOCAINE 2% PF Vial for OR 5 ML VIAL. ONE (08:44)
[2017-07-02] MEDS ORDERED: MIDAZOLAM HCL/PF 2 MG/2 ML VIAL. ONE (08:45)
[2017-07-02] MEDS: IV NORMAL SALINE 1000ML BAG 1,000 ML IV SCH ×2 (08:51→18:30)
[2017-07-02 08:57] LABS: CALCIUM 8.8 mg/dL (8.5-10.1); CREATININE 6.1 mg/dL (0.7-1.3); GFR 9.4; POTASSIUM 3.8 mmol/L (3.5-5.1)
[2017-07-02] MEDS: IPRATRPIUM/ALBUTEROL 0.5/2.5MG 3 ML NEBU. NEB SCH ×3 (09:00→19:39)
[2017-07-02] MEDS ORDERED: UBIDECARENONE 400 MG PO SCH (09:00)
[2017-07-02] MEDS ORDERED: ONDANSETRON PF 4 MG/2 ML VIAL. ONE (09:37)
[2017-07-02] MEDS ORDERED: PHENYLEPHRINE 10 MG/ML VIAL. ONE (09:37)
[2017-07-02] MEDS ORDERED: DEXAMETHASONE SOD PHOS 20 MG/5 ML VIAL. ONE (09:37)
[2017-07-02] MEDS ORDERED: SEVOFLURANE 16 TO 30 MINUTES. IH ONE (09:53)
--- NOTE | 2017-07-02 10:07 | PDOC4 ---
Operative Note Operative Note Date of surgery: 07/12/2017 Surgeon: Jon Ponce Preoperative diagnosis: Left midfoot amputation wound dehiscence Postoperative diagnosis: Same Anesthesia: Gen. with LMA Procedure performed: Irrigation and debridement, excisional, down to bone Application of wound VAC 2 wounds measuring 4 x 7 x 3 cm deep and secondary wound was 5 x 1 x 2 cm deep Complications: None Blood loss: 5 mL Findings: Necrotic tissue and soft and friable bone and first metatarsal Specimens: Bone and soft tissue were sent for culture Reason for procedure: The patient is a 61-year-old diabetic who I initially treated for a foot wound Progressed and we performed a transmetatarsal amputation. He still strongly desire to avoid a below knee amputation and refuse this. I did discuss with him that it would not really unreasonable to undergo the above surgery but that I do not necessarily have much hope that it would heal. However, it didn't think that it would be a good temporizing procedure. He and his had their questions answered and he elected to proceed with surgery. Description of procedure: Patient was greeted in the preoperative area by myself for the correct extremity was marked and verified. Taken back to the operative suite and his antibiotics were started and row. Once in the operating room, he was transferred supine to the OR table and secured to the bed and had successful induction of a general anesthetic with an LMA. We then used Betadine to prep and then draped in her usual sterile fashion his left lower extremity. We then conducted our standard preoperative timeout and after this I used a Alfredo scalpel to debride the necrotic skin edges. I use the Rominger to debride the necrotic subcutaneous tissue medially and laterally at his wounds. These wounds did not communicate. The central portion of the flap had healed. I then debrided some of the bone and sent off bone and soft tissue for culture. I then irrigated out these wounds with over 2000 mL of sterile fluid. After this I cut the VAC sponges to fit the wounds, at the lateral wound I placed an additional VAC sponge heading from lateral to medial underneath the more superficial sponge. I then sealed these often connected them via a another VAC sponge to the dorsum of his foot and applied suction apparatus. I ensured the wound VAC had a good seal. After this, he was awakened from anesthesia. He tolerated surgery well. At the conclusion of the surgery, he was awakened and transferred supine to the hospital bed. He was taken to the postop area. The postoperative plan is to admit him to the general floor. We will await wound VAC approval for home. We will consult wound care as well as the hospitalist service to assist with his postoperative care. JON PONCE II, MD Jul 02, 2017 10:07
[2017-07-02] MEDS ORDERED: ZOLPIDEM 5 MG TABLET. PO PRN (10:15)
[2017-07-02] MEDS: INSULIN ASPART 300 UNITS/3 ML INSULN.PEN SQ SCH ×2 (12:00→17:22)
[2017-07-02] MEDS: FUROSEMIDE 80 MG TABLET. PO SCH ×2 (14:00→15:00)
[2017-07-02] MEDS: FOLIC/VIT B COMP W-C (RENAL) TABLET. PO SCH (14:59)
[2017-07-02] MEDS: SENNOSIDES/DOCUSATE 8.6/50MG TABLET. PO SCH ×2 (14:59→20:59)
[2017-07-02] MEDS: cloNIDine HCL 0.2 MG TABLET PO SCH ×2 (14:59→21:01)
[2017-07-02] MEDS: ASPIRIN ENTERIC COATED 81 MG TABLET.DR. PO SCH (15:00)
[2017-07-02] MEDS: POTASSIUM CHLORIDE 20 MEQ TABLET.ER. PO SCH ×2 (15:00→17:13)
[2017-07-02] MEDS: CHOLECALCIFEROL (VITAMIN D3) 1,000 UNIT TABLET PO SCH (15:00)
[2017-07-02] MEDS: CALCIUM CARBONATE 500 MG TAB.CHEW PO SCH ×2 (15:00→17:13)
[2017-07-02] MEDS: DOCUSATE SODIUM 100 MG CAPSULE. PO SCH (15:00)
[2017-07-02] MEDS: CALCIUM ACETATE 667 MG CAPSULE PO SCH ×2 (15:01→17:13)
[2017-07-02] MEDS: FERROUS SULFATE 325 MG TABLET. PO SCH (15:01)
[2017-07-02] MEDS: TAMSULOSIN 0.4 MG CAP.ER.24H. PO SCH (15:01)
[2017-07-02] MEDS: SODIUM BICARBONATE 650 MG TABLET. PO SCH ×2 (15:01→17:14)
[2017-07-02] MEDS: ALLOPURINOL 100 MG TABLET. PO SCH (15:01)
[2017-07-02] MEDS: METOPROLOL SUCC 24HR ER 25 MG TAB.ER.24H. PO SCH (15:01)
--- NOTE | 2017-07-02 15:28 | PDOC2 ---
CONSULT Date of Consult Date of Consult DATE: 07/02/17 TIME: 15:28 Reason for Consult Reason for Consult: IM management Referring Physician Referring Physician: dr. Lee Identification/Chief Complaint Chief Complaint left midfoot amputation wound dehiscence Problems: Source Source: Chart review, Patient History of Present Illness Reason for Visit: 61yo M, esrd on HD, multiple commorbidities, with recent intubation with trach which was removed, ESRD previous on PD which was switched to HD and now back to PD [id number], left toes and midfoot osteo s/p amputation, gib post 2 EGD and clips and epi injection for gastric ulcer was sent from home for the wound dehiscence. Pt got left foot gangree,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, wound closed , no drainage, no need abx as per ortho. pt was dced to rehab x2.5weeks, then back home [id number] so far, wo wound vac. The foot wound began open since 2 days ago, with some white discharge. Pt said he has subjective fever, no chills, no cough, sob. trach removed. pt underwent I and D for the left midfoot amputation for the wound dehiscence today by dr. Lee. wound vac added. TH was asked for IM management. Past Medical History Cardiovascular: CAD, HTN, [place] Pulmonary: COPD Renal/: Chronic renal failure Endocrine: Diabetes Past Surgical History Past Surgical History: CABG, No pertinent history Family History Family History: Hypertension Social History No ALCOHOL: none Drugs: None Lives: with Family Current Medications Current Medications Current Medications Ondansetron HCl (Zofran) 4 mg PRN Q6HRS PRN IV NAUSEA/VOMITING; Start 07/02/17 at 07:00; Stop 07/03/17 at 06:59 Fentanyl Citrate (Fentanyl 2ml Vial) 25 mcg PRN Q5MIN PRN IV MILD PAIN; Start 07/02/17 at 07:00; Stop 07/03/17 at 06:59 Fentanyl Citrate (Fentanyl 2ml Vial) 50 mcg PRN Q5MIN PRN IV MODERATE PAIN; Start 07/02/17 at 07:00; Stop 07/03/17 at 06:59 Morphine Sulfate 1 mg PRN Q10MIN PRN IV SEVERE PAIN; Start 07/02/17 at 07:00; Stop 07/03/17 at 06:59 Ringer's Solution 1,000 ml @ 30 mls/hr Q24H IV ; Start 07/02/17 at 07:00; Stop 07/02/17 at 18:59 Lidocaine HCl (Xylocaine-Mpf 1% Vial) 2 ml PRN 1X PRN ID IV START; Start at 07:00; Stop 07/03/17 at 06:59 Hydromorphone HCl (Dilaudid) 0.5 mg PRN Q10MIN PRN IV SEV PAIN, Second choice; Start 07/02/17 at 07:00; Stop 07/03/17 at 06:59 Prochlorperazine Edisylate (Compazine) 5 mg PACU PRN PRN IV NAUSEA, MRX1; Start 07/02/17 at 07:00; Stop 07/03/17 at 06:59 Lidocaine HCl 30 ml STK-MED ONCE .ROUTE ; Start 07/02/17 at 07:13; Stop at 07:14; Status DC Bupivacaine HCl (Sensorcaine Mpf 0.5%) 30 ml STK-MED ONCE .ROUTE ; Start at 07:13; Stop 07/02/17 at 07:14; Status DC Clindamycin Phosphate 50 ml @ As Directed STK-MED ONCE IV ; Start 07/02/17 at 08 :19; Stop 07/02/17 at 08:20; Status DC Al Hydroxide/Mg Hydroxide (Mylanta Plus Xs) 30 ml PRN Q3HRS PRN PO HEARTBURN / GAS; Start 07/02/17 at 08:30 Oxycodone HCl (Roxicodone) 5 mg PRN Q3HRS PRN PO BREAKTHROUGH PAIN; Start 07/02 at 08:30 Morphine Sulfate 1 mg PRN Q1HR PRN IV PAIN; Start 07/02/17 at 08:30 Acetaminophen/ Hydrocodone Bitart (Lortab 5/325) 1 tab PRN Q4HRS PRN PO MILD PAIN; Start 07/02/17 at 08:30 Senna/Docusate Sodium (Senna Plus) 1 tab BID PO Last administered on 07/02/17t 14:59; Admin Dose 1 TAB; Start 07/02/17 at 10:00 Magnesium Hydroxide (Milk Of Magnesia) 2,400 mg PRN Q12HR PRN PO CONSTIPATION; Start 07/02/17 at 08:30 Sodium Chloride 1,000 ml @ 100 mls/hr Q10H IV Last administered on 07/02/17 08:51; Admin Dose 100 MLS/HR; Start 07/02/17 at 08:30 Allopurinol (Zyloprim) 100 mg DAILY PO Last administered on 07/02/17 15:01; Admin Dose 100 MG; Start 07/02/17 at 09:00 Aspirin (Ecotrin) 81 mg DAILY PO Last administered on 07/02/17 15:00; Admin Dose 81 MG; Start 07/02/17 at 09:00 Vitamin D (Vitamin D3) 1,000 unit DAILY PO Last administered on 07/02/17 15:00 ; Admin Dose 1,000 UNIT; Start 07/02/17 at 09:00 Clonidine HCl (Catapres) 0.2 mg BID PO Last administered on 07/02/17 14:59; Admin Dose 0.2 MG; Start 07/02/17 at 09:00 Darbepoetin Fredi (Aranesp) 60 mcg Sa SQ ; Start 07/05/17 at 21:00 Docusate Sodium (Colace) 200 mg DAILY PO Last administered on 07/02/17 15:00; Admin Dose 200 MG; Start 07/02/17 at 10:00 Doxazosin Mesylate (Cardura) 4 mg HS PO ; Start 07/02/17 at 21:00 Ferrous Sulfate (Feosol) 325 mg DAILYWBKFT PO Last administered on 07/02/17 15 :01; Admin Dose 325 MG; Start 07/02/17 at 09:00 Vitamin B Complex/ Vitamin C (Richelle-Harsha) 1 tab DAILY PO Last administered on 14:59; Admin Dose 1 TAB; Start 07/02/17 at 09:00 Furosemide (Lasix) 80 mg BID92 PO Last administered on 07/02/17 15:00; Admin Dose 80 MG; Start 07/02/17 at 09:00 Albuterol/ Ipratropium (Duoneb) 3 ml TID NEB ; Start 07/02/17 at 09:00 Lisinopril (Prinivil) 5 mg HS PO ; Start 07/02/17 at 21:00 Metoprolol Succinate (Toprol Xl) 25 mg DAILY PO Last administered on 07/02/17 15:01; Admin Dose 25 MG; Start 07/02/17 at 09:00 Sodium Bicarbonate (Sodium Bicarbonate) 650 mg TIDAC PO Last administered on 15:01; Admin Dose 650 MG; Start 07/02/17 at 11:30 Tamsulosin HCl (Flomax) 0.4 mg DAILY PO Last administered on 07/02/17 15:01; Admin Dose 0.4 MG; Start 07/02/17 at 09:00 Calcium Acetate (Phoslo) 667 mg TIDWMEALS PO Last administered on 07/02/17 15: 01; Admin Dose 667 MG; Start 07/02/17 at 12:00 Calcium Carbonate/ Glycine (Tums) 500 mg TIDWMEALS PO Last administered on 07/02 15:00; Admin Dose 500 MG; Start 07/02/17 at 12:00 Carvedilol (Coreg) 25 mg BIDWMEALS PO ; Start 07/02/17 at 17:00 Insulin Detemir (Levemir) 20 units QHS SQ ; Start 07/02/17 at 21:00 Potassium Chloride (Klor-Con) 20 meq BIDWMEALS PO Last administered on 15:00; Admin Dose 20 MEQ; Start 07/02/17 at 10:00 Atorvastatin Calcium (Lipitor) 5 mg QHS PO ; Start 07/02/17 at 21:00 Non-Formulary Medication 400 mg BID PO ; Start 07/02/17 at 09:00; Stop 07/02/17 at 10:20; Status DC Zolpidem Tartrate (Ambien) 5 mg PRN QHS PRN PO INSOMNIA; Start 07/02/17 at 10: 15 Insulin Aspart (NovoLOG) 0-5 UNITS TIDWMEALS SQ ; Start 07/02/17 at 12:00 Dextrose (Dextrose 50%-Water Syringe) 12.5 gm PRN Q15MIN PRN IV SEE COMMENTS; Start 07/02/17 at 08:30 Clindamycin Phosphate 50 ml @ 100 mls/hr 1X ONCE IV ; Start 07/02/17 at 08:45 ; Stop 07/02/17 at 09:03; Status DC Propofol 20 ml @ As Directed STK-MED ONCE IV ; Start 07/02/17 at 08:44; Stop at 08:45; Status DC Lidocaine HCl (Lidocaine Pf 2% Vial) 5 ml STK-MED ONCE .ROUTE ; Start 07/02/17 at 08:44; Stop 07/02/17 at 08:45; Status DC Midazolam HCl (Versed) 2 mg STK-MED ONCE .ROUTE ; Start 07/02/17 at 08:45; Stop 07/02/17 at 08:46; Status DC Ephedrine Sulfate (Akovaz) 50 mg STK-MED ONCE .ROUTE ; Start 07/02/17 at 09:28; Stop 07/02/17 at 09:29; Status DC Phenylephrine HCl (Krunal-Synephrine Inj) 10 mg STK-MED ONCE .ROUTE ; Start at 09:37; Stop 07/02/17 at 09:38; Status DC Dexamethasone Sodium Phosphate (Decadron) 20 mg STK-MED ONCE .ROUTE ; Start 07/02/17 at 09:37; Stop 07/02/17 at 09:38; Status DC Ondansetron HCl (Zofran) 4 mg STK-MED ONCE .ROUTE ; Start 07/02/17 at 09:37; Stop 07/02/17 at 09:38; Status DC Sevoflurane (Ultane) 15 ml STK-MED ONCE IH ; Start 07/02/17 at 09:53; Stop 07/02 at 09:54; Status DC Zolpidem Tartrate (Ambien) 5 mg QHS PO ; Start 07/02/17 at 21:00 Active Scripts Active Reported Carvedilol 25 Mg Tablet 1 Tab PO BID Coq-10 (Ubidecarenone) 100 Mg Capsule 400 Mg PO BID Krill Oil 500 mg Softgel (Krill/Om-3/Dha/Epa/Phospho/Ast) 1 Each Capsule 1 Each PO DAILY Vitamin D3 (Cholecalciferol (Vitamin D3)) 1,000 Unit Tablet 1 Tab PO DAILY Potassium Chloride 20 Meq Tablet.er 20 Meq PO BID Metoprolol Succinate ( Xl ) (Metoprolol Succinate) 25 Mg Tab.er.24h 1 Tab PO DAILY Calcium Acetate 667 Mg Tablet 667 Mg PO TIDWMEALS Ambien (Zolpidem Tartrate) 10 Mg Tablet 1 Tab PO QHS Humalog (Insulin Lispro) 100 Unit/1 Ml Cartridge 0 SQ Doxazosin Mesylate 4 Mg Tablet 4 Mg PO HS Nephro-Harsha Tablet (Folic Acid/Vitamin B Comp W-C) 0.8 Mg Tablet 1 Tab PO DAILY Aspir 81 (Aspirin) 81 Mg Tablet.dr 1 Tab PO DAILY Furosemide 80 Mg Tablet 80 Mg PO BID Sodium Bicarbonate 650 Mg Tablet 1 Tab PO TIDAC Artificial Tears Eye Drops (Dextran 70/Hypromellose) 15 Ml Drops 1 Drop EACHEYE BID Pravastatin Sodium 10 Mg Tablet 1 Tab PO QHS Tamsulosin Hcl 0.4 Mg Cap.er.24h 1 Cap PO DAILY Docusate Sodium 100 Mg Capsule 200 Mg PO DAILY Aranesp Syringe (Darbepoetin Fredi In Polysorbat) 60 Mcg/0.3 Ml Disp.syrin 60 Mcg SQ WEEKLY Ferrous Sulfate 325 Mg Tablet 1 Tab PO DAILY Duoneb 0.5-3(2.5) Mg/3 Ml (Albuterol/Ipratropium) 3 Ml Ampul.neb 3 Ml NEB TID Tums Ultra (Calcium Carbonate) 400 Mg Tab.chew 500 Mg PO TID Allopurinol 100 Mg Tablet 1 Tab PO DAILY Clonidine Hcl 0.2 Mg Tablet 1 Tab PO PRN TAKES ONLY IF HIS BLOOD PRESSURE IS ELEVATED Lisinopril 5 Mg Tablet 1 Tab PO HS Levemir (Insulin Detemir) 100 Unit/1 Ml Vial 20 Unit SQ HS Allergies Allergies: Coded Allergies: Penicillins (Verified Allergy, Severe, HIVES AND ITCHING., 07/02/17) HAS TOLERATED AMOXICILLIN, ZOSYN zinc (Verified Allergy, Severe, HIVES AND ITCHING, 07/02/17) Latex, Natural Rubber (Verified Allergy, Intermediate, FOREMAN AND IRRITATES SKIN, 07/02/17) adhesive (Verified Allergy, Intermediate, FOREMAN AND IRRITATES SKIN, ) PAPER TAPE IS OK amlodipine (Verified Allergy, Intermediate, 07/02/17) capsaicin (Verified Allergy, Intermediate, 07/02/17) insulin glargine (Verified Allergy, Intermediate, 07/02/17) reports that it has zinc in it Physical Exam General: Alert, Oriented X3, Cooperative HEENT: Atraumatic, PERRLA Lungs: Clear to auscultation Heart: Regular rate, Normal S1, Normal S2 Abdomen: Normal bowel sounds, Soft Extremities: No clubbing, No cyanosis Skin: Other (left foot post sx, wound vac on) Neuro: Normal speech, Strength at 5/5 X4 ext Psych/Mental Status: Mental status NL MUSCULOSKELETAL: No joint tenderness Vitals VITALS Vital Signs Date Time Temp Pulse Resp B/P (MAP) Pulse Ox O2 Delivery O2 Flow Rate FiO2 07/02/17 15:01 89 149/83 07/02/17 13:28 18 98 Room Air 07/02/17 11:45 97.5 97.5 07/02/17 09:55 10 Labs Labs Laboratory Tests Test 07/02/17 08:30 07/02/17 08:31 07/02/17 10:02 Sodium Level 140 mmol/L (136-145) Potassium Level 3.8 mmol/L (3.5-5.1) Chloride Level 103 mmol/L (98-107) Carbon Dioxide Level 26 mmol/L (21-32) Anion Gap 11 (6-14) Blood Urea Nitrogen 69 mg/dL (8-26) Creatinine 6.1 mg/dL (0.7-1.3) Estimated GFR (Cockcroft-Gault) 9.4 Glucose Level 156 mg/dL (70-99) Calcium Level 8.8 mg/dL (8.5-10.1) Glucose (Fingerstick) 152 mg/dL (70-99) 148 mg/dL (70-99) Laboratory Tests Test 07/02/17 08:30 07/02/17 08:31 07/02/17 10:02 Sodium Level 140 mmol/L (136-145) Potassium Level 3.8 mmol/L (3.5-5.1) Chloride Level 103 mmol/L (98-107) Carbon Dioxide Level 26 mmol/L (21-32) Anion Gap 11 (6-14) Blood Urea Nitrogen 69 mg/dL (8-26) Creatinine 6.1 mg/dL (0.7-1.3) Estimated GFR (Cockcroft-Gault) 9.4 Glucose Level 156 mg/dL (70-99) Calcium Level 8.8 mg/dL (8.5-10.1) Glucose (Fingerstick) 152 mg/dL (70-99) 148 mg/dL (70-99) Assessment/Plan Assessment/Plan left foot midfoot amputation with wound dehiscence post i and d on 07/02 recent Left foot gangree,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 recent left toes osteo post toes amputation with wound dehiscence recent Recurrent UGIB, s/p EGD, with gastric ulcer post clip and epi injection recent acute on chronic resp failure, post intubation, trach removed ESRD previous on PD,on short term of HD, back to PD now 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 HH for wound vac labs tmr dvt ppx if ok with ortho, currently off ivf as per ortho, consider dc tmr thanks for asking for consult MARA ABEBE MD Jul 02, 2017 15:28
[2017-07-02] MEDS ORDERED: hydrALAZINE 20 MG/ML VIAL. IVP PRN (15:45)
[2017-07-02] MEDS ORDERED: DOCUSATE SODIUM 100 MG CAPSULE. PO PRN (15:45)
[2017-07-02] MEDS ORDERED: ONDANSETRON PF 4 MG/2 ML VIAL. IV PRN (15:45)
[2017-07-02] MEDS: CARVEDILOL 12.5 MG TABLET. PO SCH (17:13)
[2017-07-02] MEDS: ACETAMINOPHEN 325 MG TABLET. PO PRN ×2 (17:13→23:18)
[2017-07-02] MEDS: ATORVASTATIN CALCIUM 10 MG TABLET. PO SCH (20:58)
[2017-07-02] MEDS: LISINOPRIL 5 MG TABLET. PO SCH (20:59)
[2017-07-02] MEDS: DOXAZOSIN MESYLATE 4 MG TABLET. PO SCH (21:00)
[2017-07-02] MEDS: HYDROcodone/APAP 5/325MG 1 TAB TABLET PO PRN (21:00)
[2017-07-02] MEDS: ZOLPIDEM 5 MG TABLET. PO SCH (21:01)
[2017-07-02] MEDS: INSULIN DETEMIR 300 UNITS/3 ML INSULN.PEN. SQ SCH (22:12)
[2017-07-03] VITALS (9 sets, daily range): BP systolic 129–154; BP diastolic 71–88
[2017-07-03] MEDS: IV NORMAL SALINE 1000ML BAG 1,000 ML IV SCH (04:30)
[2017-07-03 04:42] LABS: BASO % 0 % (0-3); EOS % 0 % (0-3); HEMATOCRIT 27.3 % (39.0-53.0); HEMOGLOBIN 8.9 g/dL (13.0-17.5); LYMPH # 0.3 x10^3/uL (1.0-4.8); LYMPH % 3 % (24-48); MEAN CORPUSCULAR HEMOGLOBIN 32 pg (25-35); MEAN CORPUSCULAR HGB CONC 33 g/dL (31-37); MEAN CORPUSCULAR VOLUME 98 fL (79-100); MONO % 2 % (0-9); NEUT % 94 % (31-73); PLATELET COUNT 113 x10^3/uL (140-400); RED CELL DISTRIBUTION WIDTH 18.2 % (11.5-14.5)
[2017-07-03 04:54] LABS: CALCIUM 8.9 mg/dL (8.5-10.1); CREATININE 6.6 mg/dL (0.7-1.3); GFR 8.6; POTASSIUM 5.6 mmol/L (3.5-5.1)
[2017-07-03 05:11] LABS: ANISOCYTOSIS SLIGHT; HYPOCHROMIA SLIGHT; OVALOCYTES FEW; PLT ESTIMATE DECREASED (ADEQUATE)
[2017-07-03] MEDS: SODIUM BICARBONATE 650 MG TABLET. PO SCH ×3 (06:26→16:25)
[2017-07-03] MEDS: IPRATRPIUM/ALBUTEROL 0.5/2.5MG 3 ML NEBU. NEB SCH ×3 (07:41→19:41)
[2017-07-03] MEDS: INSULIN ASPART 300 UNITS/3 ML INSULN.PEN SQ SCH ×3 (08:00→17:38)
--- NOTE | 2017-07-03 08:15 | PDOC ---
ORTHO PROGRESS NOTES Subjective Not much pain at rest, no new complaints. Vitals Vital Signs Date Time Temp Pulse Resp B/P (MAP) Pulse Ox O2 Delivery O2 Flow Rate FiO2 07/03/17 07:42 97 Room Air 07/03/17 07:00 98.0 66 18 133/81 (98) 98.0 07/02/17 09:55 10 Labs Laboratory Tests Test 07/02/17 08:30 07/02/17 08:31 07/02/17 10:02 07/02/17 16:48 Sodium Level 140 mmol/L (136-145) Potassium Level 3.8 mmol/L (3.5-5.1) Chloride Level 103 mmol/L (98-107) Carbon Dioxide Level 26 mmol/L (21-32) Anion Gap 11 (6-14) Blood Urea Nitrogen 69 mg/dL (8-26) Creatinine 6.1 mg/dL (0.7-1.3) Estimated GFR (Cockcroft-Gault) 9.4 Glucose Level 156 mg/dL (70-99) Calcium Level 8.8 mg/dL (8.5-10.1) Glucose (Fingerstick) 152 mg/dL (70-99) 148 mg/dL (70-99) 217 mg/dL (70-99) Test 07/02/17 21:41 07/03/17 04:05 07/03/17 07:00 Glucose (Fingerstick) 227 mg/dL (70-99) 205 mg/dL (70-99) White Blood Count 9.0 x10^3/uL (4.0-11.0) Red Blood Count 2.80 x10^6/uL (4.30-5.70) Hemoglobin 8.9 g/dL (13.0-17.5) Hematocrit 27.3 % (39.0-53.0) Mean Corpuscular Volume 98 fL (79-100) Mean Corpuscular Hemoglobin 32 pg (25-35) Mean Corpuscular Hemoglobin Concent 33 g/dL (31-37) Red Cell Distribution Width 18.2 % (11.5-14.5) Platelet Count 113 x10^3/uL (140-400) Neutrophils (%) (Auto) 94 % (31-73) Lymphocytes (%) (Auto) 3 % (24-48) Monocytes (%) (Auto) 2 % (0-9) Eosinophils (%) (Auto) 0 % (0-3) Basophils (%) (Auto) 0 % (0-3) Neutrophils # (Auto) 8.5 x10^3uL (1.8-7.7) Lymphocytes # (Auto) 0.3 x10^3/uL (1.0-4.8) Monocytes # (Auto) 0.2 x10^3/uL (0.0-1.1) Eosinophils # (Auto) 0.0 x10^3/uL (0.0-0.7) Basophils # (Auto) 0.0 x10^3/uL (0.0-0.2) Segmented Neutrophils % 96 % (35-66) Band Neutrophils % 1 % (0-9) Lymphocytes % 1 % (24-48) Monocytes % 2 % (0-10) Platelet Estimate Decreased (ADEQUATE) Hypochromasia Slight Anisocytosis Slight Ovalocytes Few Sodium Level 137 mmol/L (136-145) Potassium Level 5.6 mmol/L (3.5-5.1) Chloride Level 100 mmol/L (98-107) Carbon Dioxide Level 28 mmol/L (21-32) Anion Gap 9 (6-14) Blood Urea Nitrogen 80 mg/dL (8-26) Creatinine 6.6 mg/dL (0.7-1.3) Estimated GFR (Cockcroft-Gault) 8.6 Glucose Level 238 mg/dL (70-99) Calcium Level 8.9 mg/dL (8.5-10.1) Laboratory Tests Test 07/02/17 08:30 07/02/17 08:31 07/02/17 10:02 07/02/17 16:48 Sodium Level 140 mmol/L (136-145) Potassium Level 3.8 mmol/L (3.5-5.1) Chloride Level 103 mmol/L (98-107) Carbon Dioxide Level 26 mmol/L (21-32) Anion Gap 11 (6-14) Blood Urea Nitrogen 69 mg/dL (8-26) Creatinine 6.1 mg/dL (0.7-1.3) Estimated GFR (Cockcroft-Gault) 9.4 Glucose Level 156 mg/dL (70-99) Calcium Level 8.8 mg/dL (8.5-10.1) Glucose (Fingerstick) 152 mg/dL (70-99) 148 mg/dL (70-99) 217 mg/dL (70-99) Test 07/02/17 21:41 07/03/17 04:05 07/03/17 07:00 Glucose (Fingerstick) 227 mg/dL (70-99) 205 mg/dL (70-99) White Blood Count 9.0 x10^3/uL (4.0-11.0) Red Blood Count 2.80 x10^6/uL (4.30-5.70) Hemoglobin 8.9 g/dL (13.0-17.5) Hematocrit 27.3 % (39.0-53.0) Mean Corpuscular Volume 98 fL (79-100) Mean Corpuscular Hemoglobin 32 pg (25-35) Mean Corpuscular Hemoglobin Concent 33 g/dL (31-37) Red Cell Distribution Width 18.2 % (11.5-14.5) Platelet Count 113 x10^3/uL (140-400) Neutrophils (%) (Auto) 94 % (31-73) Lymphocytes (%) (Auto) 3 % (24-48) Monocytes (%) (Auto) 2 % (0-9) Eosinophils (%) (Auto) 0 % (0-3) Basophils (%) (Auto) 0 % (0-3) Neutrophils # (Auto) 8.5 x10^3uL (1.8-7.7) Lymphocytes # (Auto) 0.3 x10^3/uL (1.0-4.8) Monocytes # (Auto) 0.2 x10^3/uL (0.0-1.1) Eosinophils # (Auto) 0.0 x10^3/uL (0.0-0.7) Basophils # (Auto) 0.0 x10^3/uL (0.0-0.2) Segmented Neutrophils % 96 % (35-66) Band Neutrophils % 1 % (0-9) Lymphocytes % 1 % (24-48) Monocytes % 2 % (0-10) Platelet Estimate Decreased (ADEQUATE) Hypochromasia Slight Anisocytosis Slight Ovalocytes Few Sodium Level 137 mmol/L (136-145) Potassium Level 5.6 mmol/L (3.5-5.1) Chloride Level 100 mmol/L (98-107) Carbon Dioxide Level 28 mmol/L (21-32) Anion Gap 9 (6-14) Blood Urea Nitrogen 80 mg/dL (8-26) Creatinine 6.6 mg/dL (0.7-1.3) Estimated GFR (Cockcroft-Gault) 8.6 Glucose Level 238 mg/dL (70-99) Calcium Level 8.9 mg/dL (8.5-10.1) Notes A and A in bed VAC with good seal no orgs on GS Assessment and Plan CM for home VAC ID consult appreciate the help in taking care of Mr. Lewis avoid weight on LLE JOSELITO PONCE II, MD Jul 03, 2017 08:15
[2017-07-03] MEDS ORDERED: DEXTROSE 50% 25 GM / 50ML DISP.SYRIN. IV PRN (09:00)
[2017-07-03] MEDS: METOPROLOL SUCC 24HR ER 25 MG TAB.ER.24H. PO SCH (09:00)
[2017-07-03] MEDS: DOCUSATE SODIUM 100 MG CAPSULE. PO SCH (09:00)
[2017-07-03] MEDS: CARVEDILOL 12.5 MG TABLET. PO SCH ×2 (09:00→16:26)
[2017-07-03] MEDS: SENNOSIDES/DOCUSATE 8.6/50MG TABLET. PO SCH ×2 (09:01→21:00)
[2017-07-03] MEDS: TAMSULOSIN 0.4 MG CAP.ER.24H. PO SCH (09:01)
[2017-07-03] MEDS: ALLOPURINOL 100 MG TABLET. PO SCH (09:01)
[2017-07-03] MEDS: cloNIDine HCL 0.2 MG TABLET PO SCH ×2 (09:01→21:15)
[2017-07-03] MEDS: FUROSEMIDE 80 MG TABLET. PO SCH ×2 (09:01→14:39)
[2017-07-03] MEDS: ASPIRIN ENTERIC COATED 81 MG TABLET.DR. PO SCH (09:01)
[2017-07-03] MEDS: CALCIUM CARBONATE 500 MG TAB.CHEW PO SCH ×3 (09:02→16:25)
[2017-07-03] MEDS: FOLIC/VIT B COMP W-C (RENAL) TABLET. PO SCH (09:02)
[2017-07-03] MEDS: CHOLECALCIFEROL (VITAMIN D3) 1,000 UNIT TABLET PO SCH (09:02)
[2017-07-03] MEDS: FERROUS SULFATE 325 MG TABLET. PO SCH (09:02)
[2017-07-03] MEDS: CALCIUM ACETATE 667 MG CAPSULE PO SCH ×3 (09:03→16:26)
[2017-07-03] MEDS: POTASSIUM CHLORIDE 20 MEQ TABLET.ER. PO SCH ×2 (09:14→16:25)
[2017-07-03] MEDS ORDERED: MAGNESIUM SULFATE 2GM 50 ML IV PRN (09:15)
[2017-07-03] MEDS ORDERED: INSULIN ASPART 300 UNITS/3 ML INSULN.PEN SQ ONE (09:30)
--- NOTE | 2017-07-03 10:03 | PDOC2 ---
CONSULT Date of Consult Date of Consult DATE: 07/03/17 TIME: 09:46 Reason for Consult Reason for Consult: ESRD on PD Referring Physician Referring Physician: Dr Lee Identification/Chief Complaint Chief Complaint Toe wound Problems: Source Source: Chart review, Patient History of Present Illness Reason for Visit: as dictated Past Medical History Cardiovascular: CAD, HTN, [place] Pulmonary: COPD Renal/: Chronic renal failure Endocrine: Diabetes Past Surgical History Past Surgical History: CABG, No pertinent history Family History Family History: Hypertension Social History No ALCOHOL: none Drugs: None Lives: with Family Current Medications Current Medications Current Medications Ondansetron HCl (Zofran) 4 mg PRN Q6HRS PRN IV NAUSEA/VOMITING; Start 07/02/17 at 07:00; Stop 07/03/17 at 06:59; Status DC Fentanyl Citrate (Fentanyl 2ml Vial) 25 mcg PRN Q5MIN PRN IV MILD PAIN; Start 07/02/17 at 07:00; Stop 07/03/17 at 06:59; Status DC Fentanyl Citrate (Fentanyl 2ml Vial) 50 mcg PRN Q5MIN PRN IV MODERATE PAIN; Start 07/02/17 at 07:00; Stop 07/03/17 at 06:59; Status DC Morphine Sulfate 1 mg PRN Q10MIN PRN IV SEVERE PAIN; Start 07/02/17 at 07:00; Stop 07/03/17 at 06:59; Status DC Ringer's Solution 1,000 ml @ 30 mls/hr Q24H IV ; Start 07/02/17 at 07:00; Stop 07/02/17 at 18:59; Status DC Lidocaine HCl (Xylocaine-Mpf 1% Vial) 2 ml PRN 1X PRN ID IV START; Start at 07:00; Stop 07/03/17 at 06:59; Status DC Hydromorphone HCl (Dilaudid) 0.5 mg PRN Q10MIN PRN IV SEV PAIN, Second choice; Start 07/02/17 at 07:00; Stop 07/03/17 at 06:59; Status DC Prochlorperazine Edisylate (Compazine) 5 mg PACU PRN PRN IV NAUSEA, MRX1; Start 07/02/17 at 07:00; Stop 07/03/17 at 06:59; Status DC Lidocaine HCl 30 ml STK-MED ONCE .ROUTE ; Start 07/02/17 at 07:13; Stop at 07:14; Status DC Bupivacaine HCl (Sensorcaine Mpf 0.5%) 30 ml STK-MED ONCE .ROUTE ; Start at 07:13; Stop 07/02/17 at 07:14; Status DC Clindamycin Phosphate 50 ml @ As Directed STK-MED ONCE IV ; Start 07/02/17 at 08 :19; Stop 07/02/17 at 08:20; Status DC Al Hydroxide/Mg Hydroxide (Mylanta Plus Xs) 30 ml PRN Q3HRS PRN PO HEARTBURN / GAS; Start 07/02/17 at 08:30 Oxycodone HCl (Roxicodone) 5 mg PRN Q3HRS PRN PO BREAKTHROUGH PAIN; Start 07/02 at 08:30 Morphine Sulfate 1 mg PRN Q1HR PRN IV PAIN; Start 07/02/17 at 08:30 Acetaminophen/ Hydrocodone Bitart (Lortab 5/325) 1 tab PRN Q4HRS PRN PO MILD PAIN Last administered on 07/02/17 21:00; Start 07/02/17 at 08:30 Senna/Docusate Sodium (Senna Plus) 1 tab BID PO Last administered on 07/03/17 09:01; Start 07/02/17 at 10:00 Magnesium Hydroxide (Milk Of Magnesia) 2,400 mg PRN Q12HR PRN PO CONSTIPATION; Start 07/02/17 at 08:30 Sodium Chloride 1,000 ml @ 100 mls/hr Q10H IV Last administered on 07/02/17 08:51; Start 07/02/17 at 08:30 Allopurinol (Zyloprim) 100 mg DAILY PO Last administered on 07/03/17 09:01; Start 07/02/17 at 09:00 Aspirin (Ecotrin) 81 mg DAILY PO Last administered on 07/03/17 09:01; Start 07/02/17 at 09:00 Vitamin D (Vitamin D3) 1,000 unit DAILY PO Last administered on 07/03/17 09:02 ; Start 07/02/17 at 09:00 Clonidine HCl (Catapres) 0.2 mg BID PO Last administered on 07/03/17 09:01; Start 07/02/17 at 09:00 Darbepoetin Fredi (Aranesp) 60 mcg Sa SQ ; Start 07/05/17 at 21:00 Docusate Sodium (Colace) 200 mg DAILY PO Last administered on 07/02/17 15:00; Start 07/02/17 at 10:00 Doxazosin Mesylate (Cardura) 4 mg HS PO Last administered on 07/02/17 21:00; Start 07/02/17 at 21:00 Ferrous Sulfate (Feosol) 325 mg DAILYWBKFT PO Last administered on 07/03/17 09 :02; Start 07/02/17 at 09:00 Vitamin B Complex/ Vitamin C (Richelle-Harsha) 1 tab DAILY PO Last administered on 09:02; Start 07/02/17 at 09:00 Furosemide (Lasix) 80 mg BID92 PO Last administered on 07/03/17 09:01; Start 07/02/17 at 09:00 Albuterol/ Ipratropium (Duoneb) 3 ml TID NEB Last administered on 07/03/17 07: 41; Start 07/02/17 at 09:00 Lisinopril (Prinivil) 5 mg HS PO Last administered on 07/02/17 20:59; Start 07/02/17 at 21:00 Metoprolol Succinate (Toprol Xl) 25 mg DAILY PO Last administered on 07/03/17 09:00; Start 07/02/17 at 09:00 Sodium Bicarbonate (Sodium Bicarbonate) 650 mg TIDAC PO Last administered on 06:26; Start 07/02/17 at 11:30 Tamsulosin HCl (Flomax) 0.4 mg DAILY PO Last administered on 07/03/17 09:01; Start 07/02/17 at 09:00 Calcium Acetate (Phoslo) 667 mg TIDWMEALS PO Last administered on 07/03/17 09: 03; Start 07/02/17 at 12:00 Calcium Carbonate/ Glycine (Tums) 500 mg TIDWMEALS PO Last administered on 07/03 09:02; Start 07/02/17 at 12:00 Carvedilol (Coreg) 25 mg BIDWMEALS PO Last administered on 07/03/17 09:00; Start 07/02/17 at 17:00 Insulin Detemir (Levemir) 20 units QHS SQ Last administered on 07/02/17 22:12 ; Start 07/02/17 at 21:00 Potassium Chloride (Klor-Con) 20 meq BIDWMEALS PO Last administered on 09:14; Start 07/02/17 at 10:00 Atorvastatin Calcium (Lipitor) 5 mg QHS PO Last administered on 07/02/17 20:58 ; Start 07/02/17 at 21:00 Non-Formulary Medication 400 mg BID PO ; Start 07/02/17 at 09:00; Stop 07/02/17 at 10:20; Status DC Zolpidem Tartrate (Ambien) 5 mg PRN QHS PRN PO INSOMNIA; Start 07/02/17 at 10: 15 Insulin Aspart (NovoLOG) 0-5 UNITS TIDWMEALS SQ Last administered on 07/02/17 17:22; Start 07/02/17 at 12:00; Stop 07/03/17 at 08:59; Status DC Dextrose (Dextrose 50%-Water Syringe) 12.5 gm PRN Q15MIN PRN IV SEE COMMENTS; Start 07/02/17 at 08:30 Clindamycin Phosphate 50 ml @ 100 mls/hr 1X ONCE IV ; Start 07/02/17 at 08:45 ; Stop 07/02/17 at 09:03; Status DC Propofol 20 ml @ As Directed STK-MED ONCE IV ; Start 07/02/17 at 08:44; Stop at 08:45; Status DC Lidocaine HCl (Lidocaine Pf 2% Vial) 5 ml STK-MED ONCE .ROUTE ; Start 07/02/17 at 08:44; Stop 07/02/17 at 08:45; Status DC Midazolam HCl (Versed) 2 mg STK-MED ONCE .ROUTE ; Start 07/02/17 at 08:45; Stop 07/02/17 at 08:46; Status DC Ephedrine Sulfate (Akovaz) 50 mg STK-MED ONCE .ROUTE ; Start 07/02/17 at 09:28; Stop 07/02/17 at 09:29; Status DC Phenylephrine HCl (Krunal-Synephrine Inj) 10 mg STK-MED ONCE .ROUTE ; Start at 09:37; Stop 07/02/17 at 09:38; Status DC Dexamethasone Sodium Phosphate (Decadron) 20 mg STK-MED ONCE .ROUTE ; Start 07/02/17 at 09:37; Stop 07/02/17 at 09:38; Status DC Ondansetron HCl (Zofran) 4 mg STK-MED ONCE .ROUTE ; Start 07/02/17 at 09:37; Stop 07/02/17 at 09:38; Status DC Sevoflurane (Ultane) 15 ml STK-MED ONCE IH ; Start 07/02/17 at 09:53; Stop 07/02 at 09:54; Status DC Zolpidem Tartrate (Ambien) 5 mg QHS PO Last administered on 07/02/17 21:01; Start 07/02/17 at 21:00 Acetaminophen (Tylenol) 650 mg PRN Q6HRS PRN PO FEVER Last administered on 07/02 23:18; Start 07/02/17 at 15:45 Ondansetron HCl (Zofran) 4 mg PRN Q6HRS PRN IV NAUSEA/VOMITING; Start 07/02/17 at 15:45 Morphine Sulfate 2 mg PRN Q2HR PRN IV PAIN; Start 07/02/17 at 15:45 Tramadol HCl (Ultram) 50 mg PRN Q6HRS PRN PO PAIN; Start 07/02/17 at 15:45 Hydralazine HCl (Apresoline Inj) 10 mg PRN Q4HRS PRN IVP ELEVATED BP, SEE COMMENTS; Start 07/02/17 at 15:45 Docusate Sodium (Colace) 100 mg PRN DAILY PRN PO CONSTIPATION; Start 07/02/17 at 15:45 Insulin Aspart (NovoLOG) 0-9 UNITS TIDWMEALS SQ ; Start 07/03/17 at 12:00 Dextrose (Dextrose 50%-Water Syringe) 12.5 gm PRN Q15MIN PRN IV SEE COMMENTS; Start 07/03/17 at 09:00 Magnesium Sulfate/ Dextrose 50 ml @ 25 mls/hr PRN DAILY PRN IV for Mag < 1.7 on am labs; Start 07/03/17 at 09:15 Clindamycin Phosphate (Cleocin 900mg Premix) 900 mg STK-MED ONCE IV ; Start 07/02/17 at 08:00; Stop 07/03/17 at 09:11; Status DC Insulin Aspart (NovoLOG) 5 units 1X ONCE SQ ; Start 07/03/17 at 09:30; Stop at 09:31; Status DC Active Scripts Active Reported Carvedilol 25 Mg Tablet 1 Tab PO BID Coq-10 (Ubidecarenone) 100 Mg Capsule 400 Mg PO BID Krill Oil 500 mg Softgel (Krill/Om-3/Dha/Epa/Phospho/Ast) 1 Each Capsule 1 Each PO DAILY Vitamin D3 (Cholecalciferol (Vitamin D3)) 1,000 Unit Tablet 1 Tab PO DAILY Potassium Chloride 20 Meq Tablet.er 20 Meq PO BID Metoprolol Succinate ( Xl ) (Metoprolol Succinate) 25 Mg Tab.er.24h 1 Tab PO DAILY Calcium Acetate 667 Mg Tablet 1,334 Mg PO TIDWMEALS Ambien (Zolpidem Tartrate) 10 Mg Tablet 1 Tab PO QHS Humalog (Insulin Lispro) 100 Unit/1 Ml Cartridge 0 SQ Doxazosin Mesylate 4 Mg Tablet 4 Mg PO HS Nephro-Harsha Tablet (Folic Acid/Vitamin B Comp W-C) 0.8 Mg Tablet 1 Tab PO DAILY Aspir 81 (Aspirin) 81 Mg Tablet.dr 1 Tab PO DAILY Furosemide 80 Mg Tablet 80 Mg PO BID Sodium Bicarbonate 650 Mg Tablet 1 Tab PO TIDAC Artificial Tears Eye Drops (Dextran 70/Hypromellose) 15 Ml Drops 1 Drop EACHEYE BID Pravastatin Sodium 10 Mg Tablet 1 Tab PO QHS Tamsulosin Hcl 0.4 Mg Cap.er.24h 1 Cap PO DAILY Docusate Sodium 100 Mg Capsule 200 Mg PO DAILY Aranesp Syringe (Darbepoetin Fredi In Polysorbat) 60 Mcg/0.3 Ml Disp.syrin 60 Mcg SQ WEEKLY Ferrous Sulfate 325 Mg Tablet 1 Tab PO DAILY Duoneb 0.5-3(2.5) Mg/3 Ml (Albuterol/Ipratropium) 3 Ml Ampul.neb 3 Ml NEB TID Tums Ultra (Calcium Carbonate) 400 Mg Tab.chew 500 Mg PO TID Allopurinol 100 Mg Tablet 1 Tab PO DAILY Clonidine Hcl 0.2 Mg Tablet 1 Tab PO PRN TAKES ONLY IF HIS BLOOD PRESSURE IS ELEVATED Lisinopril 5 Mg Tablet 1 Tab PO HS Levemir (Insulin Detemir) 100 Unit/1 Ml Vial 20 Unit SQ HS Allergies Allergies: Coded Allergies: Penicillins (Verified Allergy, Severe, HIVES AND ITCHING., 07/02/17) HAS TOLERATED AMOXICILLIN, ZOSYN zinc (Verified Allergy, Severe, HIVES AND ITCHING, 07/02/17) Latex, Natural Rubber (Verified Allergy, Intermediate, FOREMAN AND IRRITATES SKIN, 07/02/17) adhesive (Verified Allergy, Intermediate, FOREMAN AND IRRITATES SKIN, ) PAPER TAPE IS OK amlodipine (Verified Allergy, Intermediate, 07/02/17) capsaicin (Verified Allergy, Intermediate, 07/02/17) insulin glargine (Verified Allergy, Intermediate, 07/02/17) reports that it has zinc in it ROS Review of System GEN: no Fevers no Chills EYES: no new Visual Complaints ENT: no EN Drainage no Hearing deficiets CVS: no Orthopnea no CP RESP: no SOB no SALGUERO GI: no Nausea no Vomiting : no Dysuria no Urgency HEME: no easy bruising no Palp Ly Nodes NEURO no Focal Weakness no Sz PSYCH: no Suicidal Ideation no Depression SKIN: no Rashes Left foot wound as noted ENDO: no Polyuria or Polydipsia no Hot/Cold Intolerance MU SK: no Arthraigia no Myalgia Physical Exam Physical Exam General Appearance: Awake Alert Oriented x 3 In no Distress Eyes: VIsion Unchanged Conjunctiva Normal EN: No EN Drainage Mucous Memb. moist Neck: no JVD no JVP Supple no Thyromegaly CVS: S1 S2 soft Murmur No Gallop No Rub no Edema Resp: no Rales no Rhonchi no Acc. Muscle use GI: BAS +ve NO Bruit Non Tender Non Distended : no CVA tenderness; no Suprapubic Tenderness SKIN: no Rashes Breast Exam deferred; left foot wound now with wound vac in [facility] Mu.Sk: Adequate ROM + Muscle Atrophy charan hand Heme: Unable to palpate Obvious LAD no Splenomegaly NEURO: Good Strength and Tone overall Cranial Nerves II - XII grossly intact x dec vision Psych: no Depressed no Active hallucination Vital Signs Vital Signs Date Time Temp Pulse Resp B/P (MAP) Pulse Ox O2 Delivery O2 Flow Rate FiO2 07/03/17 09:01 66 133/81 07/03/17 07:42 97 Room Air 07/03/17 07:00 98.0 18 98.0 07/02/17 09:55 10 Assessment & Plan ESRD: CAPD as ordered here Anemia: Epogen as ordered. Transfuse with next HD as needed. Supine HTN: Current BP meds reviewed. ct home meds for now ^ed K anticipate correction with PD; hold KCL for K > 4 Bone & Mineral: follow phos and alter binder regimen prn Discussed Plan of Care and prognosis etc. at length with pt Labs Labs Laboratory Tests Test 07/02/17 08:30 07/02/17 08:31 07/02/17 10:02 07/02/17 16:48 Sodium Level 140 mmol/L (136-145) Potassium Level 3.8 mmol/L (3.5-5.1) Chloride Level 103 mmol/L (98-107) Carbon Dioxide Level 26 mmol/L (21-32) Anion Gap 11 (6-14) Blood Urea Nitrogen 69 mg/dL (8-26) Creatinine 6.1 mg/dL (0.7-1.3) Estimated GFR (Cockcroft-Gault) 9.4 Glucose Level 156 mg/dL (70-99) Calcium Level 8.8 mg/dL (8.5-10.1) Glucose (Fingerstick) 152 mg/dL (70-99) 148 mg/dL (70-99) 217 mg/dL (70-99) Test 07/02/17 21:41 07/03/17 04:05 07/03/17 07:00 Glucose (Fingerstick) 227 mg/dL (70-99) 205 mg/dL (70-99) White Blood Count 9.0 x10^3/uL (4.0-11.0) Red Blood Count 2.80 x10^6/uL (4.30-5.70) Hemoglobin 8.9 g/dL (13.0-17.5) Hematocrit 27.3 % (39.0-53.0) Mean Corpuscular Volume 98 fL (79-100) Mean Corpuscular Hemoglobin 32 pg (25-35) Mean Corpuscular Hemoglobin Concent 33 g/dL (31-37) Red Cell Distribution Width 18.2 % (11.5-14.5) Platelet Count 113 x10^3/uL (140-400) Neutrophils (%) (Auto) 94 % (31-73) Lymphocytes (%) (Auto) 3 % (24-48) Monocytes (%) (Auto) 2 % (0-9) Eosinophils (%) (Auto) 0 % (0-3) Basophils (%) (Auto) 0 % (0-3) Neutrophils # (Auto) 8.5 x10^3uL (1.8-7.7) Lymphocytes # (Auto) 0.3 x10^3/uL (1.0-4.8) Monocytes # (Auto) 0.2 x10^3/uL (0.0-1.1) Eosinophils # (Auto) 0.0 x10^3/uL (0.0-0.7) Basophils # (Auto) 0.0 x10^3/uL (0.0-0.2) Segmented Neutrophils % 96 % (35-66) Band Neutrophils % 1 % (0-9) Lymphocytes % 1 % (24-48) Monocytes % 2 % (0-10) Platelet Estimate Decreased (ADEQUATE) Hypochromasia Slight Anisocytosis Slight Ovalocytes Few Sodium Level 137 mmol/L (136-145) Potassium Level 5.6 mmol/L (3.5-5.1) Chloride Level 100 mmol/L (98-107) Carbon Dioxide Level 28 mmol/L (21-32) Anion Gap 9 (6-14) Blood Urea Nitrogen 80 mg/dL (8-26) Creatinine 6.6 mg/dL (0.7-1.3) Estimated GFR (Cockcroft-Gault) 8.6 Glucose Level 238 mg/dL (70-99) Calcium Level 8.9 mg/dL (8.5-10.1) Laboratory Tests Test 07/02/17 10:02 07/02/17 16:48 07/02/17 21:41 07/03/17 04:05 Glucose (Fingerstick) 148 mg/dL (70-99) 217 mg/dL (70-99) 227 mg/dL (70-99) White Blood Count 9.0 x10^3/uL (4.0-11.0) Red Blood Count 2.80 x10^6/uL (4.30-5.70) Hemoglobin 8.9 g/dL (13.0-17.5) Hematocrit 27.3 % (39.0-53.0) Mean Corpuscular Volume 98 fL (79-100) Mean Corpuscular Hemoglobin 32 pg (25-35) Mean Corpuscular Hemoglobin Concent 33 g/dL (31-37) Red Cell Distribution Width 18.2 % (11.5-14.5) Platelet Count 113 x10^3/uL (140-400) Neutrophils (%) (Auto) 94 % (31-73) Lymphocytes (%) (Auto) 3 % (24-48) Monocytes (%) (Auto) 2 % (0-9) Eosinophils (%) (Auto) 0 % (0-3) Basophils (%) (Auto) 0 % (0-3) Neutrophils # (Auto) 8.5 x10^3uL (1.8-7.7) Lymphocytes # (Auto) 0.3 x10^3/uL (1.0-4.8) Monocytes # (Auto) 0.2 x10^3/uL (0.0-1.1) Eosinophils # (Auto) 0.0 x10^3/uL (0.0-0.7) Basophils # (Auto) 0.0 x10^3/uL (0.0-0.2) Segmented Neutrophils % 96 % (35-66) Band Neutrophils % 1 % (0-9) Lymphocytes % 1 % (24-48) Monocytes % 2 % (0-10) Platelet Estimate Decreased (ADEQUATE) Hypochromasia Slight Anisocytosis Slight Ovalocytes Few Sodium Level 137 mmol/L (136-145) Potassium Level 5.6 mmol/L (3.5-5.1) Chloride Level 100 mmol/L (98-107) Carbon Dioxide Level 28 mmol/L (21-32) Anion Gap 9 (6-14) Blood Urea Nitrogen 80 mg/dL (8-26) Creatinine 6.6 mg/dL (0.7-1.3) Estimated GFR (Cockcroft-Gault) 8.6 Glucose Level 238 mg/dL (70-99) Calcium Level 8.9 mg/dL (8.5-10.1) Test 07/03/17 07:00 Glucose (Fingerstick) 205 mg/dL (70-99) MIREYA HART MD Jul 03, 2017 10:03
--- NOTE | 2017-07-03 10:26 | PDOC ---
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 Mackey SW consulted on dc plans ID consulted for abx Dw and Mr Martino Vitals Vitals Vital Signs Date Time Temp Pulse Resp B/P (MAP) Pulse Ox O2 Delivery O2 Flow Rate FiO2 07/03/17 09:01 66 133/81 07/03/17 07:42 97 Room Air 07/03/17 07:00 98.0 18 98.0 07/02/17 09:55 10 Physical Exam General: Alert, Oriented X3, Cooperative Heart: Regular rate, Normal S1, Normal S2 Lungs: Clear Abdomen: Normal bowel sounds, Soft Extremities: No clubbing, No cyanosis Skin: Other (left foot post sx, wound vac on) Labs LABS Laboratory Tests Test 07/02/17 16:48 07/02/17 21:41 07/03/17 04:05 07/03/17 07:00 Glucose (Fingerstick) 217 mg/dL (70-99) 227 mg/dL (70-99) 205 mg/dL (70-99) White Blood Count 9.0 x10^3/uL (4.0-11.0) Red Blood Count 2.80 x10^6/uL (4.30-5.70) Hemoglobin 8.9 g/dL (13.0-17.5) Hematocrit 27.3 % (39.0-53.0) Mean Corpuscular Volume 98 fL (79-100) Mean Corpuscular Hemoglobin 32 pg (25-35) Mean Corpuscular Hemoglobin Concent 33 g/dL (31-37) Red Cell Distribution Width 18.2 % (11.5-14.5) Platelet Count 113 x10^3/uL (140-400) Neutrophils (%) (Auto) 94 % (31-73) Lymphocytes (%) (Auto) 3 % (24-48) Monocytes (%) (Auto) 2 % (0-9) Eosinophils (%) (Auto) 0 % (0-3) Basophils (%) (Auto) 0 % (0-3) Neutrophils # (Auto) 8.5 x10^3uL (1.8-7.7) Lymphocytes # (Auto) 0.3 x10^3/uL (1.0-4.8) Monocytes # (Auto) 0.2 x10^3/uL (0.0-1.1) Eosinophils # (Auto) 0.0 x10^3/uL (0.0-0.7) Basophils # (Auto) 0.0 x10^3/uL (0.0-0.2) Segmented Neutrophils % 96 % (35-66) Band Neutrophils % 1 % (0-9) Lymphocytes % 1 % (24-48) Monocytes % 2 % (0-10) Platelet Estimate Decreased (ADEQUATE) Hypochromasia Slight Anisocytosis Slight Ovalocytes Few Sodium Level 137 mmol/L (136-145) Potassium Level 5.6 mmol/L (3.5-5.1) Chloride Level 100 mmol/L (98-107) Carbon Dioxide Level 28 mmol/L (21-32) Anion Gap 9 (6-14) Blood Urea Nitrogen 80 mg/dL (8-26) Creatinine 6.6 mg/dL (0.7-1.3) Estimated GFR (Cockcroft-Gault) 8.6 Glucose Level 238 mg/dL (70-99) Calcium Level 8.9 mg/dL (8.5-10.1) Review of Systems Review of Systems no pain, no cp, abd pain, soa or fevers Comment Review of Relevant I have reviewed the following items den (where applicable) has been applied. Labs Laboratory Tests Test 07/02/17 08:30 07/02/17 08:31 07/02/17 10:02 07/02/17 16:48 Sodium Level 140 mmol/L (136-145) Potassium Level 3.8 mmol/L (3.5-5.1) Chloride Level 103 mmol/L (98-107) Carbon Dioxide Level 26 mmol/L (21-32) Anion Gap 11 (6-14) Blood Urea Nitrogen 69 mg/dL (8-26) Creatinine 6.1 mg/dL (0.7-1.3) Estimated GFR (Cockcroft-Gault) 9.4 Glucose Level 156 mg/dL (70-99) Calcium Level 8.8 mg/dL (8.5-10.1) Glucose (Fingerstick) 152 mg/dL (70-99) 148 mg/dL (70-99) 217 mg/dL (70-99) Test 07/02/17 21:41 07/03/17 04:05 07/03/17 07:00 Glucose (Fingerstick) 227 mg/dL (70-99) 205 mg/dL (70-99) White Blood Count 9.0 x10^3/uL (4.0-11.0) Red Blood Count 2.80 x10^6/uL (4.30-5.70) Hemoglobin 8.9 g/dL (13.0-17.5) Hematocrit 27.3 % (39.0-53.0) Mean Corpuscular Volume 98 fL (79-100) Mean Corpuscular Hemoglobin 32 pg (25-35) Mean Corpuscular Hemoglobin Concent 33 g/dL (31-37) Red Cell Distribution Width 18.2 % (11.5-14.5) Platelet Count 113 x10^3/uL (140-400) Neutrophils (%) (Auto) 94 % (31-73) Lymphocytes (%) (Auto) 3 % (24-48) Monocytes (%) (Auto) 2 % (0-9) Eosinophils (%) (Auto) 0 % (0-3) Basophils (%) (Auto) 0 % (0-3) Neutrophils # (Auto) 8.5 x10^3uL (1.8-7.7) Lymphocytes # (Auto) 0.3 x10^3/uL (1.0-4.8) Monocytes # (Auto) 0.2 x10^3/uL (0.0-1.1) Eosinophils # (Auto) 0.0 x10^3/uL (0.0-0.7) Basophils # (Auto) 0.0 x10^3/uL (0.0-0.2) Segmented Neutrophils % 96 % (35-66) Band Neutrophils % 1 % (0-9) Lymphocytes % 1 % (24-48) Monocytes % 2 % (0-10) Platelet Estimate Decreased (ADEQUATE) Hypochromasia Slight Anisocytosis Slight Ovalocytes Few Sodium Level 137 mmol/L (136-145) Potassium Level 5.6 mmol/L (3.5-5.1) Chloride Level 100 mmol/L (98-107) Carbon Dioxide Level 28 mmol/L (21-32) Anion Gap 9 (6-14) Blood Urea Nitrogen 80 mg/dL (8-26) Creatinine 6.6 mg/dL (0.7-1.3) Estimated GFR (Cockcroft-Gault) 8.6 Glucose Level 238 mg/dL (70-99) Calcium Level 8.9 mg/dL (8.5-10.1) Laboratory Tests Test 07/02/17 16:48 07/02/17 21:41 07/03/17 04:05 07/03/17 07:00 Glucose (Fingerstick) 217 mg/dL (70-99) 227 mg/dL (70-99) 205 mg/dL (70-99) White Blood Count 9.0 x10^3/uL (4.0-11.0) Red Blood Count 2.80 x10^6/uL (4.30-5.70) Hemoglobin 8.9 g/dL (13.0-17.5) Hematocrit 27.3 % (39.0-53.0) Mean Corpuscular Volume 98 fL (79-100) Mean Corpuscular Hemoglobin 32 pg (25-35) Mean Corpuscular Hemoglobin Concent 33 g/dL (31-37) Red Cell Distribution Width 18.2 % (11.5-14.5) Platelet Count 113 x10^3/uL (140-400) Neutrophils (%) (Auto) 94 % (31-73) Lymphocytes (%) (Auto) 3 % (24-48) Monocytes (%) (Auto) 2 % (0-9) Eosinophils (%) (Auto) 0 % (0-3) Basophils (%) (Auto) 0 % (0-3) Neutrophils # (Auto) 8.5 x10^3uL (1.8-7.7) Lymphocytes # (Auto) 0.3 x10^3/uL (1.0-4.8) Monocytes # (Auto) 0.2 x10^3/uL (0.0-1.1) Eosinophils # (Auto) 0.0 x10^3/uL (0.0-0.7) Basophils # (Auto) 0.0 x10^3/uL (0.0-0.2) Segmented Neutrophils % 96 % (35-66) Band Neutrophils % 1 % (0-9) Lymphocytes % 1 % (24-48) Monocytes % 2 % (0-10) Platelet Estimate Decreased (ADEQUATE) Hypochromasia Slight Anisocytosis Slight Ovalocytes Few Sodium Level 137 mmol/L (136-145) Potassium Level 5.6 mmol/L (3.5-5.1) Chloride Level 100 mmol/L (98-107) Carbon Dioxide Level 28 mmol/L (21-32) Anion Gap 9 (6-14) Blood Urea Nitrogen 80 mg/dL (8-26) Creatinine 6.6 mg/dL (0.7-1.3) Estimated GFR (Cockcroft-Gault) 8.6 Glucose Level 238 mg/dL (70-99) Calcium Level 8.9 mg/dL (8.5-10.1) Microbiology 07/02/17 Gram Stain - Final, Complete Medications Current Medications Ondansetron HCl (Zofran) 4 mg PRN Q6HRS PRN IV NAUSEA/VOMITING; Start 07/02/17 at 07:00; Stop 07/03/17 at 06:59; Status DC Fentanyl Citrate (Fentanyl 2ml Vial) 25 mcg PRN Q5MIN PRN IV MILD PAIN; Start 07/02/17 at 07:00; Stop 07/03/17 at 06:59; Status DC Fentanyl Citrate (Fentanyl 2ml Vial) 50 mcg PRN Q5MIN PRN IV MODERATE PAIN; Start 07/02/17 at 07:00; Stop 07/03/17 at 06:59; Status DC Morphine Sulfate 1 mg PRN Q10MIN PRN IV SEVERE PAIN; Start 07/02/17 at 07:00; Stop 07/03/17 at 06:59; Status DC Ringer's Solution 1,000 ml @ 30 mls/hr Q24H IV ; Start 07/02/17 at 07:00; Stop 07/02/17 at 18:59; Status DC Lidocaine HCl (Xylocaine-Mpf 1% Vial) 2 ml PRN 1X PRN ID IV START; Start at 07:00; Stop 07/03/17 at 06:59; Status DC Hydromorphone HCl (Dilaudid) 0.5 mg PRN Q10MIN PRN IV SEV PAIN, Second choice; Start 07/02/17 at 07:00; Stop 07/03/17 at 06:59; Status DC Prochlorperazine Edisylate (Compazine) 5 mg PACU PRN PRN IV NAUSEA, MRX1; Start 07/02/17 at 07:00; Stop 07/03/17 at 06:59; Status DC Lidocaine HCl 30 ml STK-MED ONCE .ROUTE ; Start 07/02/17 at 07:13; Stop at 07:14; Status DC Bupivacaine HCl (Sensorcaine Mpf 0.5%) 30 ml STK-MED ONCE .ROUTE ; Start at 07:13; Stop 07/02/17 at 07:14; Status DC Clindamycin Phosphate 50 ml @ As Directed STK-MED ONCE IV ; Start 07/02/17 at 08 :19; Stop 07/02/17 at 08:20; Status DC Al Hydroxide/Mg Hydroxide (Mylanta Plus Xs) 30 ml PRN Q3HRS PRN PO HEARTBURN / GAS; Start 07/02/17 at 08:30 Oxycodone HCl (Roxicodone) 5 mg PRN Q3HRS PRN PO BREAKTHROUGH PAIN; Start 07/02 at 08:30 Morphine Sulfate 1 mg PRN Q1HR PRN IV PAIN; Start 07/02/17 at 08:30 Acetaminophen/ Hydrocodone Bitart (Lortab 5/325) 1 tab PRN Q4HRS PRN PO MILD PAIN Last administered on 07/02/17t 21:00; Start 07/02/17 at 08:30 Senna/Docusate Sodium (Senna Plus) 1 tab BID PO Last administered on 07/03/17 09:01; Start 07/02/17 at 10:00 Magnesium Hydroxide (Milk Of Magnesia) 2,400 mg PRN Q12HR PRN PO CONSTIPATION; Start 07/02/17 at 08:30 Sodium Chloride 1,000 ml @ 100 mls/hr Q10H IV Last administered on 07/02/17 08:51; Start 07/02/17 at 08:30; Stop 07/03/17 at 10:02; Status DC Allopurinol (Zyloprim) 100 mg DAILY PO Last administered on 07/03/17 09:01; Start 07/02/17 at 09:00 Aspirin (Ecotrin) 81 mg DAILY PO Last administered on 07/03/17 09:01; Start 07/02/17 at 09:00 Vitamin D (Vitamin D3) 1,000 unit DAILY PO Last administered on 07/03/17 09:02 ; Start 07/02/17 at 09:00 Clonidine HCl (Catapres) 0.2 mg BID PO Last administered on 07/03/17 09:01; Start 07/02/17 at 09:00 Darbepoetin Fredi (Aranesp) 60 mcg Sa SQ ; Start 07/05/17 at 21:00 Docusate Sodium (Colace) 200 mg DAILY PO Last administered on 07/02/17 15:00; Start 07/02/17 at 10:00 Doxazosin Mesylate (Cardura) 4 mg HS PO Last administered on 07/02/17 21:00; Start 07/02/17 at 21:00 Ferrous Sulfate (Feosol) 325 mg DAILYWBKFT PO Last administered on 07/03/17 09 :02; Start 07/02/17 at 09:00 Vitamin B Complex/ Vitamin C (Richelle-Harsha) 1 tab DAILY PO Last administered on 09:02; Start 07/02/17 at 09:00 Furosemide (Lasix) 80 mg BID92 PO Last administered on 07/03/17 09:01; Start 07/02/17 at 09:00 Albuterol/ Ipratropium (Duoneb) 3 ml TID NEB Last administered on 07/03/17 07: 41; Start 07/02/17 at 09:00 Lisinopril (Prinivil) 5 mg HS PO Last administered on 07/02/17 20:59; Start 07/02/17 at 21:00 Metoprolol Succinate (Toprol Xl) 25 mg DAILY PO Last administered on 07/03/17 09:00; Start 07/02/17 at 09:00 Sodium Bicarbonate (Sodium Bicarbonate) 650 mg TIDAC PO Last administered on 06:26; Start 07/02/17 at 11:30 Tamsulosin HCl (Flomax) 0.4 mg DAILY PO Last administered on 07/03/17 09:01; Start 07/02/17 at 09:00 Calcium Acetate (Phoslo) 667 mg TIDWMEALS PO Last administered on 07/03/17 09: 03; Start 07/02/17 at 12:00 Calcium Carbonate/ Glycine (Tums) 500 mg TIDWMEALS PO Last administered on 07/03 09:02; Start 07/02/17 at 12:00 Carvedilol (Coreg) 25 mg BIDWMEALS PO Last administered on 07/03/17 09:00; Start 07/02/17 at 17:00 Insulin Detemir (Levemir) 20 units QHS SQ Last administered on 07/02/17 22:12 ; Start 07/02/17 at 21:00 Potassium Chloride (Klor-Con) 20 meq BIDWMEALS PO Last administered on 09:14; Start 07/02/17 at 10:00; Stop 07/03/17 at 10:02; Status DC Atorvastatin Calcium (Lipitor) 5 mg QHS PO Last administered on 07/02/17 20:58 ; Start 07/02/17 at 21:00 Non-Formulary Medication 400 mg BID PO ; Start 07/02/17 at 09:00; Stop 07/02/17 at 10:20; Status DC Zolpidem Tartrate (Ambien) 5 mg PRN QHS PRN PO INSOMNIA; Start 07/02/17 at 10: 15 Insulin Aspart (NovoLOG) 0-5 UNITS TIDWMEALS SQ Last administered on 07/02/17 17:22; Start 07/02/17 at 12:00; Stop 07/03/17 at 08:59; Status DC Dextrose (Dextrose 50%-Water Syringe) 12.5 gm PRN Q15MIN PRN IV SEE COMMENTS; Start 07/02/17 at 08:30 Clindamycin Phosphate 50 ml @ 100 mls/hr 1X ONCE IV ; Start 07/02/17 at 08:45 ; Stop 07/02/17 at 09:03; Status DC Propofol 20 ml @ As Directed STK-MED ONCE IV ; Start 07/02/17 at 08:44; Stop at 08:45; Status DC Lidocaine HCl (Lidocaine Pf 2% Vial) 5 ml STK-MED ONCE .ROUTE ; Start 07/02/17 at 08:44; Stop 07/02/17 at 08:45; Status DC Midazolam HCl (Versed) 2 mg STK-MED ONCE .ROUTE ; Start 07/02/17 at 08:45; Stop 07/02/17 at 08:46; Status DC Ephedrine Sulfate (Akovaz) 50 mg STK-MED ONCE .ROUTE ; Start 07/02/17 at 09:28; Stop 07/02/17 at 09:29; Status DC Phenylephrine HCl (Krunal-Synephrine Inj) 10 mg STK-MED ONCE .ROUTE ; Start at 09:37; Stop 07/02/17 at 09:38; Status DC Dexamethasone Sodium Phosphate (Decadron) 20 mg STK-MED ONCE .ROUTE ; Start 07/02/17 at 09:37; Stop 07/02/17 at 09:38; Status DC Ondansetron HCl (Zofran) 4 mg STK-MED ONCE .ROUTE ; Start 07/02/17 at 09:37; Stop 07/02/17 at 09:38; Status DC Sevoflurane (Ultane) 15 ml STK-MED ONCE IH ; Start 07/02/17 at 09:53; Stop 07/02 at 09:54; Status DC Zolpidem Tartrate (Ambien) 5 mg QHS PO Last administered on 07/02/17t 21:01; Start 07/02/17 at 21:00 Acetaminophen (Tylenol) 650 mg PRN Q6HRS PRN PO FEVER Last administered on 07/02t 23:18; Start 07/02/17 at 15:45 Ondansetron HCl (Zofran) 4 mg PRN Q6HRS PRN IV NAUSEA/VOMITING; Start 07/02/17 at 15:45 Morphine Sulfate 2 mg PRN Q2HR PRN IV PAIN; Start 07/02/17 at 15:45 Tramadol HCl (Ultram) 50 mg PRN Q6HRS PRN PO PAIN; Start 07/02/17 at 15:45 Hydralazine HCl (Apresoline Inj) 10 mg PRN Q4HRS PRN IVP ELEVATED BP, SEE COMMENTS; Start 07/02/17 at 15:45 Docusate Sodium (Colace) 100 mg PRN DAILY PRN PO CONSTIPATION; Start 07/02/17 at 15:45 Insulin Aspart (NovoLOG) 0-9 UNITS TIDWMEALS SQ ; Start 07/03/17 at 12:00 Dextrose (Dextrose 50%-Water Syringe) 12.5 gm PRN Q15MIN PRN IV SEE COMMENTS; Start 07/03/17 at 09:00 Magnesium Sulfate/ Dextrose 50 ml @ 25 mls/hr PRN DAILY PRN IV for Mag < 1.7 on am labs; Start 07/03/17 at 09:15 Clindamycin Phosphate (Cleocin 900mg Premix) 900 mg STK-MED ONCE IV ; Start 07/02/17 at 08:00; Stop 07/03/17 at 09:11; Status DC Insulin Aspart (NovoLOG) 5 units 1X ONCE SQ Last administered on 07/03/17t 09: 46; Start 07/03/17 at 09:30; Stop 07/03/17 at 09:31; Status DC Potassium Chloride (Klor-Con) 20 meq BIDWMEALS PO ; Start 07/03/17 at 17:00 Active Scripts Active Reported Carvedilol 25 Mg Tablet 1 Tab PO BID Coq-10 (Ubidecarenone) 100 Mg Capsule 400 Mg PO BID Krill Oil 500 mg Softgel (Krill/Om-3/Dha/Epa/Phospho/Ast) 1 Each Capsule 1 Each PO DAILY Vitamin D3 (Cholecalciferol (Vitamin D3)) 1,000 Unit Tablet 1 Tab PO DAILY Potassium Chloride 20 Meq Tablet.er 20 Meq PO BID Metoprolol Succinate ( Xl ) (Metoprolol Succinate) 25 Mg Tab.er.24h 1 Tab PO DAILY Calcium Acetate 667 Mg Tablet 1,334 Mg PO TIDWMEALS Ambien (Zolpidem Tartrate) 10 Mg Tablet 1 Tab PO QHS Humalog (Insulin Lispro) 100 Unit/1 Ml Cartridge 0 SQ Doxazosin Mesylate 4 Mg Tablet 4 Mg PO HS Nephro-Harsha Tablet (Folic Acid/Vitamin B Comp W-C) 0.8 Mg Tablet 1 Tab PO DAILY Aspir 81 (Aspirin) 81 Mg Tablet.dr 1 Tab PO DAILY Furosemide 80 Mg Tablet 80 Mg PO BID Sodium Bicarbonate 650 Mg Tablet 1 Tab PO TIDAC Artificial Tears Eye Drops (Dextran 70/Hypromellose) 15 Ml Drops 1 Drop EACHEYE BID Pravastatin Sodium 10 Mg Tablet 1 Tab PO QHS Tamsulosin Hcl 0.4 Mg Cap.er.24h 1 Cap PO DAILY Docusate Sodium 100 Mg Capsule 200 Mg PO DAILY Aranesp Syringe (Darbepoetin Fredi In Polysorbat) 60 Mcg/0.3 Ml Disp.syrin 60 Mcg SQ WEEKLY Ferrous Sulfate 325 Mg Tablet 1 Tab PO DAILY Duoneb 0.5-3(2.5) Mg/3 Ml (Albuterol/Ipratropium) 3 Ml Ampul.neb 3 Ml NEB TID Tums Ultra (Calcium Carbonate) 400 Mg Tab.chew 500 Mg PO TID Allopurinol 100 Mg Tablet 1 Tab PO DAILY Clonidine Hcl 0.2 Mg Tablet 1 Tab PO PRN TAKES ONLY IF HIS BLOOD PRESSURE IS ELEVATED Lisinopril 5 Mg Tablet 1 Tab PO HS Levemir (Insulin Detemir) 100 Unit/1 Ml Vial 20 Unit SQ HS Vitals/I & O Vital Sign - Last 24 Hours 07/02/17 07/02/17 07/02/17 07/02/17 10:25 10:40 10:41 10:55 Pulse 82 80 82 Resp 20 20 20 B/P (MAP) 134/79 129/76 128/73 Pulse Ox 97 98 97 O2 Delivery Room Air Room Air Room Air Room Air 07/02/17 07/02/17 07/02/17 07/02/17 11:10 11:45 11:58 12:13 Temp 97.5 97.5 Pulse 82 82 83 84 Resp 20 18 18 18 B/P (MAP) 136/78 139/79 (99) 140/78 (98) 142/80 (100) Pulse Ox 97 96 97 97 O2 Delivery Room Air Room Air Room Air Room Air 07/02/17 07/02/17 07/02/1707/02/17 12:28 12:43 12:58 13:28 Pulse 84 85 92 89 Resp 18 18 18 18 B/P (MAP) 145/82 (103) 141/82 (101) 151/87 (108) 149/83 (105) Pulse Ox 97 95 97 98 O2 Delivery Room Air Room Air Room Air Room Air 07/02/17 07/02/17 07/02/17 07/02/17 14:58 14:59 15:01 15:28 Pulse 92 89 89 Resp 18 B/P (MAP) 139/73 (95) 149/83 149/83 Pulse Ox 99 98 O2 Delivery Room Air Room Air 07/02/17 07/02/17 07/02/17 07/02/17 15:58 17:13 19:00 19:41 Temp 97.9 97.9 Pulse 89 89 85 Resp 18 18 B/P (MAP) 139/85 (103) 139/85 139/80 (99) Pulse Ox 99 96 98 O2 Delivery Room Air Room Air Room Air 07/02/17 07/02/17 07/02/17 07/02/17 20:30 20:59 21:00 21:00 Pulse 89 89 Resp 14 B/P (MAP) 139/85 139/85 O2 Delivery Room Air Room Air 07/02/17 07/02/17 07/02/17 07/02/17 21:01 22:05 22:30 23:00 Temp 95.9 95.9 Pulse 89 86 Resp 16 18 B/P (MAP) 139/85 128/70 (89) Pulse Ox 91 O2 Delivery Room Air Room Air Room Air 07/03/17 07/03/17 07/03/17 07/03/17 03:00 07:00 07:42 09:00 Temp 96.3 98.0 96.3 98.0 Pulse 77 66 66 Resp 18 18 B/P (MAP) 154/71 (98) 133/81 (98) 133/81 Pulse Ox 97 99 97 O2 Delivery Room Air Room Air Room Air 07/03/17 07/03/17 09:00 09:01 Pulse 66 66 B/P (MAP) 133/81 133/81 Intake and Output 07/03/17 07/03/17 07/04/17 15:00 23:00 07:00 Intake Total 300 ml Balance 300 ml TERMULO,CHERELLE Y MD Jul 03, 2017 10:26
--- NOTE | 2017-07-03 13:00 | PDOC ---
ORTHO PROGRESS NOTES Vitals Vital Signs Date Time Temp Pulse Resp B/P (MAP) Pulse Ox O2 Delivery O2 Flow Rate FiO2 07/03/17 10:56 97.9 73 18 134/80 (98) 98 Room Air 97.9 07/02/17 09:55 10 Labs Laboratory Tests Test 07/02/17 08:30 07/02/17 08:31 07/02/17 10:02 07/02/17 16:48 Sodium Level 140 mmol/L (136-145) Potassium Level 3.8 mmol/L (3.5-5.1) Chloride Level 103 mmol/L (98-107) Carbon Dioxide Level 26 mmol/L (21-32) Anion Gap 11 (6-14) Blood Urea Nitrogen 69 mg/dL (8-26) Creatinine 6.1 mg/dL (0.7-1.3) Estimated GFR (Cockcroft-Gault) 9.4 Glucose Level 156 mg/dL (70-99) Calcium Level 8.8 mg/dL (8.5-10.1) Glucose (Fingerstick) 152 mg/dL (70-99) 148 mg/dL (70-99) 217 mg/dL (70-99) Test 07/02/17 21:41 07/03/17 04:05 07/03/17 07:00 07/03/17 10:08 Glucose (Fingerstick) 227 mg/dL (70-99) 205 mg/dL (70-99) 227 mg/dL (70-99) White Blood Count 9.0 x10^3/uL (4.0-11.0) Red Blood Count 2.80 x10^6/uL (4.30-5.70) Hemoglobin 8.9 g/dL (13.0-17.5) Hematocrit 27.3 % (39.0-53.0) Mean Corpuscular Volume 98 fL (79-100) Mean Corpuscular Hemoglobin 32 pg (25-35) Mean Corpuscular Hemoglobin Concent 33 g/dL (31-37) Red Cell Distribution Width 18.2 % (11.5-14.5) Platelet Count 113 x10^3/uL (140-400) Neutrophils (%) (Auto) 94 % (31-73) Lymphocytes (%) (Auto) 3 % (24-48) Monocytes (%) (Auto) 2 % (0-9) Eosinophils (%) (Auto) 0 % (0-3) Basophils (%) (Auto) 0 % (0-3) Neutrophils # (Auto) 8.5 x10^3uL (1.8-7.7) Lymphocytes # (Auto) 0.3 x10^3/uL (1.0-4.8) Monocytes # (Auto) 0.2 x10^3/uL (0.0-1.1) Eosinophils # (Auto) 0.0 x10^3/uL (0.0-0.7) Basophils # (Auto) 0.0 x10^3/uL (0.0-0.2) Segmented Neutrophils % 96 % (35-66) Band Neutrophils % 1 % (0-9) Lymphocytes % 1 % (24-48) Monocytes % 2 % (0-10) Platelet Estimate Decreased (ADEQUATE) Hypochromasia Slight Anisocytosis Slight Ovalocytes Few Sodium Level 137 mmol/L (136-145) Potassium Level 5.6 mmol/L (3.5-5.1) Chloride Level 100 mmol/L (98-107) Carbon Dioxide Level 28 mmol/L (21-32) Anion Gap 9 (6-14) Blood Urea Nitrogen 80 mg/dL (8-26) Creatinine 6.6 mg/dL (0.7-1.3) Estimated GFR (Cockcroft-Gault) 8.6 Glucose Level 238 mg/dL (70-99) Calcium Level 8.9 mg/dL (8.5-10.1) Laboratory Tests Test 07/02/17 16:48 07/02/17 21:41 07/03/17 04:05 07/03/17 07:00 Glucose (Fingerstick) 217 mg/dL (70-99) 227 mg/dL (70-99) 205 mg/dL (70-99) White Blood Count 9.0 x10^3/uL (4.0-11.0) Red Blood Count 2.80 x10^6/uL (4.30-5.70) Hemoglobin 8.9 g/dL (13.0-17.5) Hematocrit 27.3 % (39.0-53.0) Mean Corpuscular Volume 98 fL (79-100) Mean Corpuscular Hemoglobin 32 pg (25-35) Mean Corpuscular Hemoglobin Concent 33 g/dL (31-37) Red Cell Distribution Width 18.2 % (11.5-14.5) Platelet Count 113 x10^3/uL (140-400) Neutrophils (%) (Auto) 94 % (31-73) Lymphocytes (%) (Auto) 3 % (24-48) Monocytes (%) (Auto) 2 % (0-9) Eosinophils (%) (Auto) 0 % (0-3) Basophils (%) (Auto) 0 % (0-3) Neutrophils # (Auto) 8.5 x10^3uL (1.8-7.7) Lymphocytes # (Auto) 0.3 x10^3/uL (1.0-4.8) Monocytes # (Auto) 0.2 x10^3/uL (0.0-1.1) Eosinophils # (Auto) 0.0 x10^3/uL (0.0-0.7) Basophils # (Auto) 0.0 x10^3/uL (0.0-0.2) Segmented Neutrophils % 96 % (35-66) Band Neutrophils % 1 % (0-9) Lymphocytes % 1 % (24-48) Monocytes % 2 % (0-10) Platelet Estimate Decreased (ADEQUATE) Hypochromasia Slight Anisocytosis Slight Ovalocytes Few Sodium Level 137 mmol/L (136-145) Potassium Level 5.6 mmol/L (3.5-5.1) Chloride Level 100 mmol/L (98-107) Carbon Dioxide Level 28 mmol/L (21-32) Anion Gap 9 (6-14) Blood Urea Nitrogen 80 mg/dL (8-26) Creatinine 6.6 mg/dL (0.7-1.3) Estimated GFR (Cockcroft-Gault) 8.6 Glucose Level 238 mg/dL (70-99) Calcium Level 8.9 mg/dL (8.5-10.1) Test 07/03/17 10:08 Glucose (Fingerstick) 227 mg/dL (70-99) Assessment and Plan Cx report shows GNRs will start Cipro, until ID has rec JOSELITO PONCE II, MD Jul 03, 2017 13:00
[2017-07-03] MEDS ORDERED: CIPROFLOXACIN 400MG PREMIX 200 ML IV SCH (14:00)
--- NOTE | 2017-07-03 15:11 | PDOC ---
Provider Note Provider Note pt seen dictated [id number] IMP: Lt wound amputation site dehiscence s/p Iand D on 07/02 C/S GNR ID and BELKIS pending continue empiric cipro await c/s results ,will modify tx wound care PIPER HART MD Jul 03, 2017 15:11
[2017-07-03] MEDS ORDERED: CIPROFLOXACIN 400MG PREMIX 200 ML IV ONE (15:30)
[2017-07-03] MEDS: HYDROcodone/APAP 5/325MG 1 TAB TABLET PO PRN (21:10)
[2017-07-03] MEDS: ZOLPIDEM 5 MG TABLET. PO SCH (21:10)
[2017-07-03] MEDS: DOXAZOSIN MESYLATE 4 MG TABLET. PO SCH (21:11)
[2017-07-03] MEDS: LISINOPRIL 5 MG TABLET. PO SCH (21:12)
[2017-07-03] MEDS: ATORVASTATIN CALCIUM 10 MG TABLET. PO SCH (21:12)
[2017-07-03] MEDS: INSULIN DETEMIR 300 UNITS/3 ML INSULN.PEN. SQ SCH (21:18)
--- NOTE | 2017-07-03 21:50 | CONS ---
DATE OF CONSULTATION: HISTORY OF PRESENT ILLNESS: The patient is a pleasant 61-year-old gentleman who is known to have end-stage renal disease. He has had an extensive hospital stay in the recent past. He is known to have end-stage renal disease and is on peritoneal dialysis currently. He was recently admitted to this hospital with GI bleed post codes and was eventually trached. He had an extensive stint at [facility] where he was treated with hemodialysis for a short period of time and is now back to [facility] for about 2 weeks. He has also had osteomyelitis of his left lower extremity. He has had left toe and mid foot osteo with amputation. He had an open wound that was bothering him and he is now status post transmetatarsal amputation in early part of May and now has a wound VAC to that due to reopening of the wound with some purulent discharge. He is now status post incision and drainage for that also. We were asked to manage his peritoneal dialysis while he is in-house. For rest of the details, see electronic records. MIREYA HART MD DR: REFUGIO/galen JOB#: [id number] / [id number]
[2017-07-04] VITALS (7 sets, daily range): BP systolic 120–144; BP diastolic 31–81
--- NOTE | 2017-07-04 02:47 | CONS ---
DATE OF CONSULTATION: 07/03/2017 REFERRING PHYSICIAN: Jon Arellano REASON FOR CONSULTATION: Left mid foot wound dehiscence. HISTORY OF PRESENT ILLNESS: A 61-year-old male with a past medical history of end-stage renal disease, on PD, coronary artery disease, third degree AV block with PPM, diabetes mellitus 2, chronic anemia, history of recurrent GI bleed, history of gastric ulcers, status post clip and epinephrine injection, history of chronic thrombocytopenia, history of a left toe osteomyelitis, status post amputation with wound dehiscence admitted on 07/02/2017 after experiencing left mid foot amputation with wound dehiscence status post I and D. He has h/o open left third toe amputation with necrosis status post revision with I and D of bone and necrotic tissue on 03/29/2017 with cultures positive for MSSA and Finegoldia magna. The patient was doing well since last discharge, but was discharged from [facility] facility at home 2 weeks ago. Over the last few days he developed spontaneous dehiscence with serous drainage. The patient was evaluated by Orthopedics and was started on ciprofloxacin. He underwent I and D with wound VAC placement. Gram stain shows gram-negative rods. ID and BELKIS is pending at this time. Today, the patient denies any complaints. Denies any fever, chills, nausea, vomiting. He had 1 loose bowel movement this a.m. No abdominal pain. He denies any cough, shortness of breath, chest pain, visual disturbances. Denies any new joint pain. Denies any rash. REVIEW OF SYSTEMS: As above, otherwise negative. PAST MEDICAL HISTORY: 1. Diabetes mellitus. 2. Diabetic neuropathy. 3. End-stage renal disease, on PD. 4. History of recurrent upper GI bleed, status post EGD with gastric ulcer, status post clipping and epinephrine injection. 5. History of thrombocytopenia. 6. History of chronic anemia. 7. History of moderate malnutrition. 8. History of multiple surgeries for left toe osteo, status post amputation with wound dehiscence. 9. Left foot midfoot amputation, status post transmetatarsal amputation on 05/28/2017 was transferred to [facility] rehab and was discharged home 2 weeks ago. 10. Now with left mid foot amputation with wound dehiscence status post I and D on 07/02/2017 with cultures positive for gram-negative rods. PAST SURGICAL HISTORY: CABG and left foot surgeries as above. FAMILY HISTORY: Hypertension. SOCIAL HISTORY: Denies smoking, ETOH, or illicit drug use. Lives with family. CURRENT MEDICATION: Antibiotics ciprofloxacin. INPATIENT MEDICATIONS: Reviewed. PHYSICAL EXAMINATION: VITAL SIGNS: Temperature 97.9, pulse 73, blood pressure 133/81, respiratory rate 18, oxygen saturation 97% on room air. GENERAL: Alert, oriented x 3 male in no acute distress, cooperative, pleasant. HEENT: Nonicteric. No oral lesions. NECK: Supple, no JVD. LUNGS: Clear. HEART: S1, S2 present and regular. ABDOMEN: Soft. Bowel sounds present. No masses, nontender. EXTREMITIES: No edema. Left foot post-surgical wound VAC present intact. No surrounding erythema noted. Ankle, no joint swelling noted. DERMATOLOGIC: No generalized rash. PPM site looks okay. LABORATORY DATA: WBC 9.0, hemoglobin 8.9, hematocrit 27.3, platelets 113. Chemistry: Sodium 137, potassium 5.6, chloride 100, bicarbonate 26, BUN 80, creatinine 6.6, glucose 238, calcium 8.9. RADIOLOGY: None recent. IMPRESSION: 1. Left mid foot amputation with wound dehiscence status post I and D on 07/02/2017 by Orthopedics. Cultures positive for gram-negative rods. ID and BELKIS at this time on empiric Cipro. 2. End-stage renal disease, on peritoneal dialysis. 3. Diabetes mellitus 2 with neuropathy. 4. Coronary artery disease. 5. 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 6. Acute on chronic anemia. 7. History of recurrent gastrointestinal bleed. 8. History of gastric ulcer, status post clip and epinephrine injection. 9. History of chronic thrombocytopenia. 10. PENICILLIN ALLERGY, has had amoxicillin and Zosyn in the past, tolerated it well. PLAN: 1. Continue empiric Cipro at this time.May need IV antibiotics depending on BELKIS of GNR 2. Follow up culture and sensitivity results on gram-negative rods. 3. We will modify treatment accordingly. 4. Continue wound management. 5. Continue optimal diabetes mellitus, control. Thank you, for consulting ID. We will follow along with you. PIPER HART MD DR: YANNA/nts JOB#: [id number] / [id number] ANGELA
[2017-07-04 05:58] LABS: ALBUMIN 2.3 g/dL (3.4-5.0); CALCIUM 8.5 mg/dL (8.5-10.1); CREATININE 6.7 mg/dL (0.7-1.3); GFR 8.4
[2017-07-04 06:02] LABS: POTASSIUM 5.2 mmol/L (3.5-5.1)
[2017-07-04] MEDS: SODIUM BICARBONATE 650 MG TABLET. PO SCH ×3 (06:25→17:06)
[2017-07-04] MEDS: IPRATRPIUM/ALBUTEROL 0.5/2.5MG 3 ML NEBU. NEB SCH ×3 (06:49→20:32)
[2017-07-04] MEDS ORDERED: CIPROFLOXACIN 400MG PREMIX 200 ML IV SCH (09:00)
[2017-07-04] MEDS: CALCIUM ACETATE 667 MG CAPSULE PO SCH ×3 (09:16→17:06)
[2017-07-04] MEDS: CHOLECALCIFEROL (VITAMIN D3) 1,000 UNIT TABLET PO SCH (09:16)
[2017-07-04] MEDS: SENNOSIDES/DOCUSATE 8.6/50MG TABLET. PO SCH ×2 (09:16→21:00)
[2017-07-04] MEDS: FOLIC/VIT B COMP W-C (RENAL) TABLET. PO SCH (09:16)
[2017-07-04] MEDS: CALCIUM CARBONATE 500 MG TAB.CHEW PO SCH ×3 (09:16→17:06)
[2017-07-04] MEDS: ASPIRIN ENTERIC COATED 81 MG TABLET.DR. PO SCH (09:16)
[2017-07-04] MEDS: ALLOPURINOL 100 MG TABLET. PO SCH (09:16)
[2017-07-04] MEDS: FUROSEMIDE 80 MG TABLET. PO SCH ×2 (09:16→14:49)
[2017-07-04] MEDS: TAMSULOSIN 0.4 MG CAP.ER.24H. PO SCH (09:16)
[2017-07-04] MEDS: FERROUS SULFATE 325 MG TABLET. PO SCH (09:17)
[2017-07-04] MEDS: cloNIDine HCL 0.2 MG TABLET PO SCH ×2 (09:17→20:53)
[2017-07-04] MEDS: METOPROLOL SUCC 24HR ER 25 MG TAB.ER.24H. PO SCH (09:19)
[2017-07-04] MEDS: INSULIN ASPART 300 UNITS/3 ML INSULN.PEN SQ SCH ×3 (09:20→17:14)
[2017-07-04] MEDS: DOCUSATE SODIUM 100 MG CAPSULE. PO SCH (09:20)
[2017-07-04] MEDS: POTASSIUM CHLORIDE 20 MEQ TABLET.ER. PO SCH ×2 (09:20→16:38)
[2017-07-04] MEDS: CARVEDILOL 12.5 MG TABLET. PO SCH ×2 (09:21→17:07)
[2017-07-04] MEDS ORDERED: MAGNESIUM SULFATE 2GM 50 ML IV ONE (10:30)
--- NOTE | 2017-07-04 11:51 | PDOC ---
Infectious Disease Note Subjective Subjective pt feeling fine, no f/c/n/v/d/abdo pain wound vac lt foot ok ROS ROS GEN: Denies fevers, chills, sweats HEENT: Denies blurred vision, sore throat CV: Denies chest pain RESP: Denies shortness of air, cough GI: Denies n/v/d : Denies hematuria, dysuria ENDO: Denies weight changes NEURO: Denies confusion, dizziness MSK: Denies weakness, joint pain/swelling SKIN: Denies rash, pruritus Vital Sign Vital Signs Vital Signs Date Time Temp Pulse Resp B/P (MAP) Pulse Ox O2 Delivery O2 Flow Rate FiO2 07/04/17 09:21 77 127/71 07/04/17 08:30 Room Air 07/04/17 07:00 97.9 20 96 97.9 07/04/17 06:49 3.0 Physical Exam PHYSICAL EXAM GENERAL: NAD, Alert HEENT: PERRL, OC/OP NECK: Supple, no JVD, no LN LUNGS: Clear HEART: S1S2, no gallop, no murmur ABD: Soft, NT, no organomegaly, no rebound EXT: No edema, no cyanosis, wound vac in place looks ok SIDE FRAMER: Alert, oriented x 3, no focal neurologic deficit SKIN: No rash IV: ok Labs Lab Laboratory Tests Test 07/03/17 17:01 07/03/17 21:14 07/04/17 05:21 07/04/17 07:57 Glucose (Fingerstick) 193 mg/dL (70-99) 175 mg/dL (70-99) 128 mg/dL (70-99) Hemoglobin 8.3 g/dL (13.0-17.5) Sodium Level 136 mmol/L (136-145) Potassium Level 5.2 mmol/L (3.5-5.1) Chloride Level 99 mmol/L (98-107) Carbon Dioxide Level 26 mmol/L (21-32) Anion Gap 11 (6-14) Blood Urea Nitrogen 81 mg/dL (8-26) Creatinine 6.7 mg/dL (0.7-1.3) Estimated GFR (Cockcroft-Gault) 8.4 Glucose Level 152 mg/dL (70-99) Calcium Level 8.5 mg/dL (8.5-10.1) Phosphorus Level 5.0 mg/dL (2.6-4.7) Magnesium Level 1.7 mg/dL (1.8-2.4) Albumin 2.3 g/dL (3.4-5.0) Micro RUN DATE: 07/04/17 PAGE 1 RUN TIME: 921 [facility] [address] [place] [address] Bakari Pino M.D., Night Filler PATIENT: AMALIA FARRIS ACCT: [id number] LOC: [address] [place] [address] U : [id number] AGE/SX: 61/M ROOM: [facility] REG : 07/02/[address]: JOSELITO PONCE II, MD : 1955 BED: 1 DIS : STATUS: ADM IN TLOC: SPEC #: [id number] ELLIE: 07/02/17 STATUS: RES REQ #: [id number] RECD: 07/02/17-[address]: JOSELITO PONCE II, MD SOURCE: FOOT ENTR: 07/02/17-[address]: DAVONTE LIZARRAGA III DO [facility]: LEFT UNKNOWN PCP NAME ORDERED: ANAER-AERO CULT Procedure Result ANAEROBIC-AEROBIC CULTURE Preliminary Preliminary report ANAEROBIC RES 1 Preliminary Comment No anaerobes recovered in 48 hours. Performed at: [address] [id number] Climatologist: Maryana Felder MD, Phone: [phone] AEROBIC CULT Final Final report AEROBIC RES 1 Final Klebsiella pneumoniae Moderate growth ANTIMICROBIAL SUSCEPTIBILITY Final Comment S = Susceptible; I = Intermediate; R = Resistant P = Positive; N = Negative MICS are expressed in micrograms per mL Antibiotic RSLT#1 RSLT#2 RSLT#3 RSLT#4 Amoxicillin/Clavulanic Acid R Ampicillin R Cefazolin R Cefepime R Ceftriaxone R Cefuroxime R Ciprofloxacin I Ertapenem S Gentamicin R Imipenem S Levofloxacin S Piperacillin R Tetracycline R CONTINUED ON NEXT PAGE RUN DATE: 07/04/17 PAGE 2 RUN TIME: 921 [facility] [address] [place] [address] Bakari Pino M.D., Night Filler SPEC: [id number] PATIENT: AMALIA FARRIS [id number] ( Continued) Procedure Result ANTIMICROBIAL SUSCEPTIBILITY Final (continued) Tobramycin R Trimethoprim/Sulfa R Performed at: [address] [id number] Climatologist: Maryana Felder MD, Phone: [phone] Objective Assessment 1. Left mid foot amputation with wound dehiscence status post I and D on 07/02/2017 by Orthopedics. C/S JESSENIA Klebsiella 2. End-stage renal disease, on peritoneal dialysis. 3. Diabetes mellitus 2 with neuropathy. 4. Coronary artery disease. 5. 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 6. Acute on chronic anemia. 7. History of recurrent gastrointestinal bleed. 8. History of gastric ulcer, status post clip and epinephrine injection. 9. History of chronic thrombocytopenia. 10. PENICILLIN ALLERGY, has had amoxicillin and Zosyn in the past, tolerated it well. Plan Plan of Care -will dc cipro -start renally dosed ertapenem -needs powered line -wound care -weekly labs cbc,cmp while on antibiotics -optimal dm control -maintain isolation PIPER HART MD Jul 04, 2017 11:51
--- NOTE | 2017-07-04 12:23 | PDOC ---
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 DM2 ON insulin dysphagia resolved morbid obesity, BMI 32.5 acute on chronic anemia, esrd, gib h/o thrombocytopenia moderate malnutrition History of Present Illness History of Present Illness Wound cx growing Klebsiella currently Intermediate to CIpro ALlergy to PCN - tongue swelling (some 20 yrs ago) but has tolerated zosyn in past fine NO fevers Dw ID and ortho PLans on IV senior living abx and wound vac x 4-6 weeks Dw SW - LTAC screen Plan: ID adjusting iv ABx count wound care wound vac LTAC screen As per dw ortho, he needs amputation but pt refusing it consistently since day 1 Vitals Vitals Vital Signs Date Time Temp Pulse Resp B/P (MAP) Pulse Ox O2 Delivery O2 Flow Rate FiO2 07/04/17 09:21 77 127/71 07/04/17 08:30 Room Air 07/04/17 07:00 97.9 20 96 97.9 07/04/17 06:49 3.0 Physical Exam General: Alert, Oriented X3, Cooperative Heart: Regular rate, Normal S1, Normal S2 Lungs: Clear Abdomen: Normal bowel sounds, Soft Extremities: No clubbing, No cyanosis Skin: Other (left foot post sx, wound vac on) Labs LABS Laboratory Tests Test 07/03/17 17:01 07/03/17 21:14 07/04/17 05:21 07/04/17 07:57 Glucose (Fingerstick) 193 mg/dL (70-99) 175 mg/dL (70-99) 128 mg/dL (70-99) Hemoglobin 8.3 g/dL (13.0-17.5) Sodium Level 136 mmol/L (136-145) Potassium Level 5.2 mmol/L (3.5-5.1) Chloride Level 99 mmol/L (98-107) Carbon Dioxide Level 26 mmol/L (21-32) Anion Gap 11 (6-14) Blood Urea Nitrogen 81 mg/dL (8-26) Creatinine 6.7 mg/dL (0.7-1.3) Estimated GFR (Cockcroft-Gault) 8.4 Glucose Level 152 mg/dL (70-99) Calcium Level 8.5 mg/dL (8.5-10.1) Phosphorus Level 5.0 mg/dL (2.6-4.7) Magnesium Level 1.7 mg/dL (1.8-2.4) Albumin 2.3 g/dL (3.4-5.0) Test 07/04/17 12:02 Glucose (Fingerstick) 219 mg/dL (70-99) Review of Systems Review of Systems no pain, no fevers, neg 14 pt Comment Review of Relevant I have reviewed the following items den (where applicable) has been applied. Labs Laboratory Tests Test 07/02/17 16:48 07/02/17 21:41 07/03/17 04:05 07/03/17 07:00 Glucose (Fingerstick) 217 mg/dL (70-99) 227 mg/dL (70-99) 205 mg/dL (70-99) White Blood Count 9.0 x10^3/uL (4.0-11.0) Red Blood Count 2.80 x10^6/uL (4.30-5.70) Hemoglobin 8.9 g/dL (13.0-17.5) Hematocrit 27.3 % (39.0-53.0) Mean Corpuscular Volume 98 fL (79-100) Mean Corpuscular Hemoglobin 32 pg (25-35) Mean Corpuscular Hemoglobin Concent 33 g/dL (31-37) Red Cell Distribution Width 18.2 % (11.5-14.5) Platelet Count 113 x10^3/uL (140-400) Neutrophils (%) (Auto) 94 % (31-73) Lymphocytes (%) (Auto) 3 % (24-48) Monocytes (%) (Auto) 2 % (0-9) Eosinophils (%) (Auto) 0 % (0-3) Basophils (%) (Auto) 0 % (0-3) Neutrophils # (Auto) 8.5 x10^3uL (1.8-7.7) Lymphocytes # (Auto) 0.3 x10^3/uL (1.0-4.8) Monocytes # (Auto) 0.2 x10^3/uL (0.0-1.1) Eosinophils # (Auto) 0.0 x10^3/uL (0.0-0.7) Basophils # (Auto) 0.0 x10^3/uL (0.0-0.2) Segmented Neutrophils % 96 % (35-66) Band Neutrophils % 1 % (0-9) Lymphocytes % 1 % (24-48) Monocytes % 2 % (0-10) Platelet Estimate Decreased (ADEQUATE) Hypochromasia Slight Anisocytosis Slight Ovalocytes Few Sodium Level 137 mmol/L (136-145) Potassium Level 5.6 mmol/L (3.5-5.1) Chloride Level 100 mmol/L (98-107) Carbon Dioxide Level 28 mmol/L (21-32) Anion Gap 9 (6-14) Blood Urea Nitrogen 80 mg/dL (8-26) Creatinine 6.6 mg/dL (0.7-1.3) Estimated GFR (Cockcroft-Gault) 8.6 Glucose Level 238 mg/dL (70-99) Calcium Level 8.9 mg/dL (8.5-10.1) Test 07/03/17 10:08 07/03/17 17:01 07/03/17 21:14 07/04/17 05:21 Glucose (Fingerstick) 227 mg/dL (70-99) 193 mg/dL (70-99) 175 mg/dL (70-99) Hemoglobin 8.3 g/dL (13.0-17.5) Sodium Level 136 mmol/L (136-145) Potassium Level 5.2 mmol/L (3.5-5.1) Chloride Level 99 mmol/L (98-107) Carbon Dioxide Level 26 mmol/L (21-32) Anion Gap 11 (6-14) Blood Urea Nitrogen 81 mg/dL (8-26) Creatinine 6.7 mg/dL (0.7-1.3) Estimated GFR (Cockcroft-Gault) 8.4 Glucose Level 152 mg/dL (70-99) Calcium Level 8.5 mg/dL (8.5-10.1) Phosphorus Level 5.0 mg/dL (2.6-4.7) Magnesium Level 1.7 mg/dL (1.8-2.4) Albumin 2.3 g/dL (3.4-5.0) Test 07/04/17 07:57 07/04/17 12:02 Glucose (Fingerstick) 128 mg/dL (70-99) 219 mg/dL (70-99) Laboratory Tests Test 07/03/17 17:01 07/03/17 21:14 07/04/17 05:21 07/04/17 07:57 Glucose (Fingerstick) 193 mg/dL (70-99) 175 mg/dL (70-99) 128 mg/dL (70-99) Hemoglobin 8.3 g/dL (13.0-17.5) Sodium Level 136 mmol/L (136-145) Potassium Level 5.2 mmol/L (3.5-5.1) Chloride Level 99 mmol/L (98-107) Carbon Dioxide Level 26 mmol/L (21-32) Anion Gap 11 (6-14) Blood Urea Nitrogen 81 mg/dL (8-26) Creatinine 6.7 mg/dL (0.7-1.3) Estimated GFR (Cockcroft-Gault) 8.4 Glucose Level 152 mg/dL (70-99) Calcium Level 8.5 mg/dL (8.5-10.1) Phosphorus Level 5.0 mg/dL (2.6-4.7) Magnesium Level 1.7 mg/dL (1.8-2.4) Albumin 2.3 g/dL (3.4-5.0) Test 07/04/17 12:02 Glucose (Fingerstick) 219 mg/dL (70-99) Microbiology 07/02/17 Anaerobic/Aerobic Culture - Preliminary, Resulted 07/02/17 Anaerobic Culture Result 1 (BELKIS) - Preliminary, Resulted 07/02/17 Aerobic Culture - Final, Resulted 07/02/17 Aerobic Culture Result 1 (BELKIS) - Final, Resulted Medications Current Medications Ondansetron HCl (Zofran) 4 mg PRN Q6HRS PRN IV NAUSEA/VOMITING; Start 07/02/17 at 07:00; Stop 07/03/17 at 06:59; Status DC Fentanyl Citrate (Fentanyl 2ml Vial) 25 mcg PRN Q5MIN PRN IV MILD PAIN; Start 07/02/17 at 07:00; Stop 07/03/17 at 06:59; Status DC Fentanyl Citrate (Fentanyl 2ml Vial) 50 mcg PRN Q5MIN PRN IV MODERATE PAIN; Start 07/02/17 at 07:00; Stop 07/03/17 at 06:59; Status DC Morphine Sulfate 1 mg PRN Q10MIN PRN IV SEVERE PAIN; Start 07/02/17 at 07:00; Stop 07/03/17 at 06:59; Status DC Ringer's Solution 1,000 ml @ 30 mls/hr Q24H IV ; Start 07/02/17 at 07:00; Stop 07/02/17 at 18:59; Status DC Lidocaine HCl (Xylocaine-Mpf 1% Vial) 2 ml PRN 1X PRN ID IV START; Start at 07:00; Stop 07/03/17 at 06:59; Status DC Hydromorphone HCl (Dilaudid) 0.5 mg PRN Q10MIN PRN IV SEV PAIN, Second choice; Start 07/02/17 at 07:00; Stop 07/03/17 at 06:59; Status DC Prochlorperazine Edisylate (Compazine) 5 mg PACU PRN PRN IV NAUSEA, MRX1; Start 07/02/17 at 07:00; Stop 07/03/17 at 06:59; Status DC Lidocaine HCl 30 ml STK-MED ONCE .ROUTE ; Start 07/02/17 at 07:13; Stop at 07:14; Status DC Bupivacaine HCl (Sensorcaine Mpf 0.5%) 30 ml STK-MED ONCE .ROUTE ; Start at 07:13; Stop 07/02/17 at 07:14; Status DC Clindamycin Phosphate 50 ml @ As Directed STK-MED ONCE IV ; Start 07/02/17 at 08 :19; Stop 07/02/17 at 08:20; Status DC Al Hydroxide/Mg Hydroxide (Mylanta Plus Xs) 30 ml PRN Q3HRS PRN PO HEARTBURN / GAS; Start 07/02/17 at 08:30 Oxycodone HCl (Roxicodone) 5 mg PRN Q3HRS PRN PO BREAKTHROUGH PAIN; Start 07/02 at 08:30 Morphine Sulfate 1 mg PRN Q1HR PRN IV PAIN; Start 07/02/17 at 08:30 Acetaminophen/ Hydrocodone Bitart (Lortab 5/325) 1 tab PRN Q4HRS PRN PO MILD PAIN Last administered on 07/03/17 21:10; Start 07/02/17 at 08:30 Senna/Docusate Sodium (Senna Plus) 1 tab BID PO Last administered on 09:16; Start 07/02/17 at 10:00 Magnesium Hydroxide (Milk Of Magnesia) 2,400 mg PRN Q12HR PRN PO CONSTIPATION; Start 07/02/17 at 08:30 Sodium Chloride 1,000 ml @ 100 mls/hr Q10H IV Last administered on 07/02/17 08:51; Start 07/02/17 at 08:30; Stop 07/03/17 at 10:02; Status DC Allopurinol (Zyloprim) 100 mg DAILY PO Last administered on 07/04/17 09:16; Start 07/02/17 at 09:00 Aspirin (Ecotrin) 81 mg DAILY PO Last administered on 07/04/17 09:16; Start 07/02/17 at 09:00 Vitamin D (Vitamin D3) 1,000 unit DAILY PO Last administered on 07/04/17 09: 16; Start 07/02/17 at 09:00 Clonidine HCl (Catapres) 0.2 mg BID PO Last administered on 07/04/17 09:17; Start 07/02/17 at 09:00 Darbepoetin Fredi (Aranesp) 60 mcg Sa SQ ; Start 07/05/17 at 21:00 Docusate Sodium (Colace) 200 mg DAILY PO Last administered on 07/02/17 15:00; Start 07/02/17 at 10:00 Doxazosin Mesylate (Cardura) 4 mg HS PO Last administered on 07/03/17 21:11; Start 07/02/17 at 21:00 Ferrous Sulfate (Feosol) 325 mg DAILYWBKFT PO Last administered on 07/04/17 09:17; Start 07/02/17 at 09:00 Vitamin B Complex/ Vitamin C (Richelle-Harsha) 1 tab DAILY PO Last administered on 09:16; Start 07/02/17 at 09:00 Furosemide (Lasix) 80 mg BID92 PO Last administered on 07/04/17 09:16; Start 07/02/17 at 09:00 Albuterol/ Ipratropium (Duoneb) 3 ml TID NEB Last administered on 07/04/17 06 :49; Start 07/02/17 at 09:00 Lisinopril (Prinivil) 5 mg HS PO Last administered on 07/03/17 21:12; Start 07/02/17 at 21:00 Metoprolol Succinate (Toprol Xl) 25 mg DAILY PO Last administered on 09:19; Start 07/02/17 at 09:00 Sodium Bicarbonate (Sodium Bicarbonate) 650 mg TIDAC PO Last administered on 11:41; Start 07/02/17 at 11:30 Tamsulosin HCl (Flomax) 0.4 mg DAILY PO Last administered on 07/04/17 09:16; Start 07/02/17 at 09:00 Calcium Acetate (Phoslo) 667 mg TIDWMEALS PO Last administered on 07/04/17 11 :41; Start 07/02/17 at 12:00 Calcium Carbonate/ Glycine (Tums) 500 mg TIDWMEALS PO Last administered on 11:41; Start 07/02/17 at 12:00 Carvedilol (Coreg) 25 mg BIDWMEALS PO Last administered on 07/04/17 09:21; Start 07/02/17 at 17:00 Insulin Detemir (Levemir) 20 units QHS SQ Last administered on 07/03/17 21:18 ; Start 07/02/17 at 21:00 Potassium Chloride (Klor-Con) 20 meq BIDWMEALS PO Last administered on 09:14; Start 07/02/17 at 10:00; Stop 07/03/17 at 10:02; Status DC Atorvastatin Calcium (Lipitor) 5 mg QHS PO Last administered on 07/03/17 21:12 ; Start 07/02/17 at 21:00 Non-Formulary Medication 400 mg BID PO ; Start 07/02/17 at 09:00; Stop 07/02/17 at 10:20; Status DC Zolpidem Tartrate (Ambien) 5 mg PRN QHS PRN PO INSOMNIA; Start 07/02/17 at 10: 15 Insulin Aspart (NovoLOG) 0-5 UNITS TIDWMEALS SQ Last administered on 07/02/17t 17:22; Start 07/02/17 at 12:00; Stop 07/03/17 at 08:59; Status DC Dextrose (Dextrose 50%-Water Syringe) 12.5 gm PRN Q15MIN PRN IV SEE COMMENTS; Start 07/02/17 at 08:30; Stop 07/03/17 at 14:12; Status DC Clindamycin Phosphate 50 ml @ 100 mls/hr 1X ONCE IV ; Start 07/02/17 at 08:45 ; Stop 07/02/17 at 09:03; Status DC Propofol 20 ml @ As Directed STK-MED ONCE IV ; Start 07/02/17 at 08:44; Stop at 08:45; Status DC Lidocaine HCl (Lidocaine Pf 2% Vial) 5 ml STK-MED ONCE .ROUTE ; Start 07/02/17 at 08:44; Stop 07/02/17 at 08:45; Status DC Midazolam HCl (Versed) 2 mg STK-MED ONCE .ROUTE ; Start 07/02/17 at 08:45; Stop 07/02/17 at 08:46; Status DC Ephedrine Sulfate (Akovaz) 50 mg STK-MED ONCE .ROUTE ; Start 07/02/17 at 09:28; Stop 07/02/17 at 09:29; Status DC Phenylephrine HCl (Krunal-Synephrine Inj) 10 mg STK-MED ONCE .ROUTE ; Start at 09:37; Stop 07/02/17 at 09:38; Status DC Dexamethasone Sodium Phosphate (Decadron) 20 mg STK-MED ONCE .ROUTE ; Start 07/02/17 at 09:37; Stop 07/02/17 at 09:38; Status DC Ondansetron HCl (Zofran) 4 mg STK-MED ONCE .ROUTE ; Start 07/02/17 at 09:37; Stop 07/02/17 at 09:38; Status DC Sevoflurane (Ultane) 15 ml STK-MED ONCE IH ; Start 07/02/17 at 09:53; Stop 07/02 at 09:54; Status DC Zolpidem Tartrate (Ambien) 5 mg QHS PO Last administered on 07/03/17 21:10; Start 07/02/17 at 21:00 Acetaminophen (Tylenol) 650 mg PRN Q6HRS PRN PO FEVER Last administered on 07/02 23:18; Start 07/02/17 at 15:45 Ondansetron HCl (Zofran) 4 mg PRN Q6HRS PRN IV NAUSEA/VOMITING; Start 07/02/17 at 15:45 Morphine Sulfate 2 mg PRN Q2HR PRN IV PAIN; Start 07/02/17 at 15:45 Tramadol HCl (Ultram) 50 mg PRN Q6HRS PRN PO PAIN; Start 07/02/17 at 15:45 Hydralazine HCl (Apresoline Inj) 10 mg PRN Q4HRS PRN IVP ELEVATED BP, SEE COMMENTS; Start 07/02/17 at 15:45 Docusate Sodium (Colace) 100 mg PRN DAILY PRN PO CONSTIPATION; Start 07/02/17 at 15:45 Insulin Aspart (NovoLOG) 0-9 UNITS TIDWMEALS SQ Last administered on 12:15; Start 07/03/17 at 12:00 Dextrose (Dextrose 50%-Water Syringe) 12.5 gm PRN Q15MIN PRN IV SEE COMMENTS; Start 07/03/17 at 09:00 Magnesium Sulfate/ Dextrose 50 ml @ 25 mls/hr PRN DAILY PRN IV for Mag < 1.7 on am labs; Start 07/03/17 at 09:15 Clindamycin Phosphate (Cleocin 900mg Premix) 900 mg STK-MED ONCE IV ; Start 07/02/17 at 08:00; Stop 07/03/17 at 09:11; Status DC Insulin Aspart (NovoLOG) 5 units 1X ONCE SQ Last administered on 07/03/17 09: 46; Start 07/03/17 at 09:30; Stop 07/03/17 at 09:31; Status DC Potassium Chloride (Klor-Con) 20 meq BIDWMEALS PO Last administered on 16:25; Start 07/03/17 at 17:00 Ciprofloxacin/ Dextrose 200 ml @ 200 mls/hr DAILY IV ; Start 07/03/17 at 14:00 ; Stop 07/03/17 at 14:38; Status DC Ciprofloxacin/ Dextrose 200 ml @ 200 mls/hr Q18H IV ; Start 07/04/17 at 09:00 ; Stop 07/04/17 at 11:51; Status DC Ciprofloxacin/ Dextrose 200 ml @ 200 mls/hr 1X ONCE IV Last administered on 07/03/17t 16:24; Start 07/03/17 at 15:30; Stop 07/04/17 at 11:51; Status DC Magnesium Sulfate/ Dextrose 50 ml @ 25 mls/hr 1X ONCE IV Last administered on 07/04/17t 11:41; Start 07/04/17 at 10:30; Stop 07/04/17 at 12:29 Ertapenem 0.5 gm/ Sodium Chloride 50 ml @ 100 mls/hr DAILY08 IV ; Start at 08:00; Status UNV Meropenem (Merrem) 500 mg Q24H IVP ; Start 07/04/17 at 13:00 Active Scripts Active Reported Carvedilol 25 Mg Tablet 1 Tab PO BID Coq-10 (Ubidecarenone) 100 Mg Capsule 400 Mg PO BID Krill Oil 500 mg Softgel (Krill/Om-3/Dha/Epa/Phospho/Ast) 1 Each Capsule 1 Each PO DAILY Vitamin D3 (Cholecalciferol (Vitamin D3)) 1,000 Unit Tablet 1 Tab PO DAILY Potassium Chloride 20 Meq Tablet.er 20 Meq PO BID Metoprolol Succinate ( Xl ) (Metoprolol Succinate) 25 Mg Tab.er.24h 1 Tab PO DAILY Calcium Acetate 667 Mg Tablet 1,334 Mg PO TIDWMEALS Ambien (Zolpidem Tartrate) 10 Mg Tablet 1 Tab PO QHS Humalog (Insulin Lispro) 100 Unit/1 Ml Cartridge 0 SQ Doxazosin Mesylate 4 Mg Tablet 4 Mg PO HS Nephro-Harsha Tablet (Folic Acid/Vitamin B Comp W-C) 0.8 Mg Tablet 1 Tab PO DAILY Aspir 81 (Aspirin) 81 Mg Tablet.dr 1 Tab PO DAILY Furosemide 80 Mg Tablet 80 Mg PO BID Sodium Bicarbonate 650 Mg Tablet 1 Tab PO TIDAC Artificial Tears Eye Drops (Dextran 70/Hypromellose) 15 Ml Drops 1 Drop EACHEYE BID Pravastatin Sodium 10 Mg Tablet 1 Tab PO QHS Tamsulosin Hcl 0.4 Mg Cap.er.24h 1 Cap PO DAILY Docusate Sodium 100 Mg Capsule 200 Mg PO DAILY Aranesp Syringe (Darbepoetin Fredi In Polysorbat) 60 Mcg/0.3 Ml Disp.syrin 60 Mcg SQ WEEKLY Ferrous Sulfate 325 Mg Tablet 1 Tab PO DAILY Duoneb 0.5-3(2.5) Mg/3 Ml (Albuterol/Ipratropium) 3 Ml Ampul.neb 3 Ml NEB TID Tums Ultra (Calcium Carbonate) 400 Mg Tab.chew 500 Mg PO TID Allopurinol 100 Mg Tablet 1 Tab PO DAILY Clonidine Hcl 0.2 Mg Tablet 1 Tab PO PRN TAKES ONLY IF HIS BLOOD PRESSURE IS ELEVATED Lisinopril 5 Mg Tablet 1 Tab PO HS Levemir (Insulin Detemir) 100 Unit/1 Ml Vial 20 Unit SQ HS Vitals/I & O Vital Sign - Last 24 Hours 07/03/17 07/03/17 07/03/17 07/03/17 13:10 14:08 15:00 16:26 Temp 97.9 98.0 97.9 98.0 Pulse 74 74 Resp 18 18 B/P (MAP) 134/80 (98) 137/81 (99) 137/81 Pulse Ox 98 98 O2 Delivery Room Air Room Air 07/03/17 07/03/17 07/03/17 07/03/17 17:20 19:00 19:40 20:10 Temp 98.0 97.3 98.0 97.3 Pulse 74 81 Resp 18 18 B/P (MAP) 137/81 (99) 150/88 (108) Pulse Ox 98 97 98 O2 Delivery Room Air Room Air Room Air Room Air 07/03/17 07/03/17 07/03/17 07/03/17 20:55 21:10 21:11 21:12 Temp 97.9 97.9 Pulse 83 83 83 Resp 18 18 B/P (MAP) 129/76 (93) 129/76 129/76 Pulse Ox 93 O2 Delivery Room Air Nasal Cannula 07/03/17 07/03/17 07/03/17 07/04/17 21:15 22:10 23:00 00:00 Temp 97.4 97.4 97.4 97.4 Pulse 83 75 75 Resp 20 18 18 B/P (MAP) 129/76 139/81 (100) 139/81 (100) Pulse Ox 100 100 100 O2 Delivery Room Air BiPAP/CPAP BiPAP/CPAP 07/04/17 07/04/17 07/04/17 07/04/17 03:00 06:49 07:00 08:30 Temp 97.5 97.9 97.5 97.9 Pulse 76 77 Resp 18 20 B/P (MAP) 129/78 (95) 127/71 (89) Pulse Ox 99 100 96 O2 Delivery BiPAP/CPAP BiPAP/CPAP Room Air Room Air O2 Flow Rate 3.0 07/04/17 07/04/17 07/04/17 09:17 09:19 09:21 Pulse 77 77 77 B/P (MAP) 127/71 127/71 127/71 Intake and Output 07/04/17 07/04/17 07/05/17 14:59 22:59 06:59 Intake Total 240 ml Balance 240 ml CHERELLE ABBOTT MD Jul 04, 2017 12:23
[2017-07-04] MEDS: MEROPENEM IV Push 500 MG VIAL. IVP SCH (14:49)
--- NOTE | 2017-07-04 15:19 | PDOC ---
ORTHO PROGRESS NOTES Subjective Feeling fine, no complaints. Not much pain at all Vitals Vital Signs Date Time Temp Pulse Resp B/P (MAP) Pulse Ox O2 Delivery O2 Flow Rate FiO2 07/04/17 14:55 96.8 75 16 142/74 (96) Room Air 97.0 96.8 07/04/17 07:00 96 Labs Laboratory Tests Test 07/02/17 16:48 07/02/17 21:41 07/03/17 04:05 07/03/17 07:00 Glucose (Fingerstick) 217 mg/dL (70-99) 227 mg/dL (70-99) 205 mg/dL (70-99) White Blood Count 9.0 x10^3/uL (4.0-11.0) Red Blood Count 2.80 x10^6/uL (4.30-5.70) Hemoglobin 8.9 g/dL (13.0-17.5) Hematocrit 27.3 % (39.0-53.0) Mean Corpuscular Volume 98 fL (79-100) Mean Corpuscular Hemoglobin 32 pg (25-35) Mean Corpuscular Hemoglobin Concent 33 g/dL (31-37) Red Cell Distribution Width 18.2 % (11.5-14.5) Platelet Count 113 x10^3/uL (140-400) Neutrophils (%) (Auto) 94 % (31-73) Lymphocytes (%) (Auto) 3 % (24-48) Monocytes (%) (Auto) 2 % (0-9) Eosinophils (%) (Auto) 0 % (0-3) Basophils (%) (Auto) 0 % (0-3) Neutrophils # (Auto) 8.5 x10^3uL (1.8-7.7) Lymphocytes # (Auto) 0.3 x10^3/uL (1.0-4.8) Monocytes # (Auto) 0.2 x10^3/uL (0.0-1.1) Eosinophils # (Auto) 0.0 x10^3/uL (0.0-0.7) Basophils # (Auto) 0.0 x10^3/uL (0.0-0.2) Segmented Neutrophils % 96 % (35-66) Band Neutrophils % 1 % (0-9) Lymphocytes % 1 % (24-48) Monocytes % 2 % (0-10) Platelet Estimate Decreased (ADEQUATE) Hypochromasia Slight Anisocytosis Slight Ovalocytes Few Sodium Level 137 mmol/L (136-145) Potassium Level 5.6 mmol/L (3.5-5.1) Chloride Level 100 mmol/L (98-107) Carbon Dioxide Level 28 mmol/L (21-32) Anion Gap 9 (6-14) Blood Urea Nitrogen 80 mg/dL (8-26) Creatinine 6.6 mg/dL (0.7-1.3) Estimated GFR (Cockcroft-Gault) 8.6 Glucose Level 238 mg/dL (70-99) Calcium Level 8.9 mg/dL (8.5-10.1) Test 07/03/17 10:08 07/03/17 17:01 07/03/17 21:14 07/04/17 05:21 Glucose (Fingerstick) 227 mg/dL (70-99) 193 mg/dL (70-99) 175 mg/dL (70-99) Hemoglobin 8.3 g/dL (13.0-17.5) Sodium Level 136 mmol/L (136-145) Potassium Level 5.2 mmol/L (3.5-5.1) Chloride Level 99 mmol/L (98-107) Carbon Dioxide Level 26 mmol/L (21-32) Anion Gap 11 (6-14) Blood Urea Nitrogen 81 mg/dL (8-26) Creatinine 6.7 mg/dL (0.7-1.3) Estimated GFR (Cockcroft-Gault) 8.4 Glucose Level 152 mg/dL (70-99) Calcium Level 8.5 mg/dL (8.5-10.1) Phosphorus Level 5.0 mg/dL (2.6-4.7) Magnesium Level 1.7 mg/dL (1.8-2.4) Albumin 2.3 g/dL (3.4-5.0) Test 07/04/17 07:57 07/04/17 10:40 07/04/17 12:02 Glucose (Fingerstick) 128 mg/dL (70-99) 219 mg/dL (70-99) Erythrocyte Sedimentation Rate 65 (0-15) Laboratory Tests Test 07/03/17 17:01 07/03/17 21:14 07/04/17 05:21 07/04/17 07:57 Glucose (Fingerstick) 193 mg/dL (70-99) 175 mg/dL (70-99) 128 mg/dL (70-99) Hemoglobin 8.3 g/dL (13.0-17.5) Sodium Level 136 mmol/L (136-145) Potassium Level 5.2 mmol/L (3.5-5.1) Chloride Level 99 mmol/L (98-107) Carbon Dioxide Level 26 mmol/L (21-32) Anion Gap 11 (6-14) Blood Urea Nitrogen 81 mg/dL (8-26) Creatinine 6.7 mg/dL (0.7-1.3) Estimated GFR (Cockcroft-Gault) 8.4 Glucose Level 152 mg/dL (70-99) Calcium Level 8.5 mg/dL (8.5-10.1) Phosphorus Level 5.0 mg/dL (2.6-4.7) Magnesium Level 1.7 mg/dL (1.8-2.4) Albumin 2.3 g/dL (3.4-5.0) Test 07/04/17 10:40 07/04/17 12:02 Erythrocyte Sedimentation Rate 65 (0-15) Glucose (Fingerstick) 219 mg/dL (70-99) Notes Cx reviewed A and A LLE: VAC in place with good seal edema better Assessment and Plan VAC change with wound care awaiting placement ordered PICC insertion d/w JOSELITO Rea II, MD Jul 04, 2017 15:19
--- NOTE | 2017-07-04 15:36 | PDOC ---
Dialysis Progress Note Dialysis Note Dialysis Note Seen on CAPD, tolerating treatment Well Vitals as documented General Appearance: Awake: Alert Oriented x 3 Neck: No JVD or JVP Chest: CTA Stanislaw Heart: S1 S2 Abdomen - Soft NTND Extremities - No Edema ESRD: Marginal ^ed K: KCL held this am; anticipate correction with Lasix and CAPD Vitals Vital Signs Vital Signs Date Time Temp Pulse Resp B/P (MAP) Pulse Ox O2 Delivery O2 Flow Rate FiO2 07/04/17 14:55 96.8 75 16 142/74 (96) Room Air 97.0 96.8 07/04/17 07:00 96 Labs Last Labs Laboratory Tests Test 07/02/17 16:48 07/02/17 21:41 07/03/17 04:05 07/03/17 07:00 Glucose (Fingerstick) 217 mg/dL (70-99) 227 mg/dL (70-99) 205 mg/dL (70-99) White Blood Count 9.0 x10^3/uL (4.0-11.0) Red Blood Count 2.80 x10^6/uL (4.30-5.70) Hemoglobin 8.9 g/dL (13.0-17.5) Hematocrit 27.3 % (39.0-53.0) Mean Corpuscular Volume 98 fL (79-100) Mean Corpuscular Hemoglobin 32 pg (25-35) Mean Corpuscular Hemoglobin Concent 33 g/dL (31-37) Red Cell Distribution Width 18.2 % (11.5-14.5) Platelet Count 113 x10^3/uL (140-400) Neutrophils (%) (Auto) 94 % (31-73) Lymphocytes (%) (Auto) 3 % (24-48) Monocytes (%) (Auto) 2 % (0-9) Eosinophils (%) (Auto) 0 % (0-3) Basophils (%) (Auto) 0 % (0-3) Neutrophils # (Auto) 8.5 x10^3uL (1.8-7.7) Lymphocytes # (Auto) 0.3 x10^3/uL (1.0-4.8) Monocytes # (Auto) 0.2 x10^3/uL (0.0-1.1) Eosinophils # (Auto) 0.0 x10^3/uL (0.0-0.7) Basophils # (Auto) 0.0 x10^3/uL (0.0-0.2) Segmented Neutrophils % 96 % (35-66) Band Neutrophils % 1 % (0-9) Lymphocytes % 1 % (24-48) Monocytes % 2 % (0-10) Platelet Estimate Decreased (ADEQUATE) Hypochromasia Slight Anisocytosis Slight Ovalocytes Few Sodium Level 137 mmol/L (136-145) Potassium Level 5.6 mmol/L (3.5-5.1) Chloride Level 100 mmol/L (98-107) Carbon Dioxide Level 28 mmol/L (21-32) Anion Gap 9 (6-14) Blood Urea Nitrogen 80 mg/dL (8-26) Creatinine 6.6 mg/dL (0.7-1.3) Estimated GFR (Cockcroft-Gault) 8.6 Glucose Level 238 mg/dL (70-99) Calcium Level 8.9 mg/dL (8.5-10.1) Test 07/03/17 10:08 07/03/17 17:01 07/03/17 21:14 07/04/17 05:21 Glucose (Fingerstick) 227 mg/dL (70-99) 193 mg/dL (70-99) 175 mg/dL (70-99) Hemoglobin 8.3 g/dL (13.0-17.5) Sodium Level 136 mmol/L (136-145) Potassium Level 5.2 mmol/L (3.5-5.1) Chloride Level 99 mmol/L (98-107) Carbon Dioxide Level 26 mmol/L (21-32) Anion Gap 11 (6-14) Blood Urea Nitrogen 81 mg/dL (8-26) Creatinine 6.7 mg/dL (0.7-1.3) Estimated GFR (Cockcroft-Gault) 8.4 Glucose Level 152 mg/dL (70-99) Calcium Level 8.5 mg/dL (8.5-10.1) Phosphorus Level 5.0 mg/dL (2.6-4.7) Magnesium Level 1.7 mg/dL (1.8-2.4) Albumin 2.3 g/dL (3.4-5.0) Test 07/04/17 07:57 07/04/17 10:40 07/04/17 12:02 Glucose (Fingerstick) 128 mg/dL (70-99) 219 mg/dL (70-99) Erythrocyte Sedimentation Rate 65 (0-15) Laboratory Tests Test 07/03/17 17:01 07/03/17 21:14 07/04/17 05:21 07/04/17 07:57 Glucose (Fingerstick) 193 mg/dL (70-99) 175 mg/dL (70-99) 128 mg/dL (70-99) Hemoglobin 8.3 g/dL (13.0-17.5) Sodium Level 136 mmol/L (136-145) Potassium Level 5.2 mmol/L (3.5-5.1) Chloride Level 99 mmol/L (98-107) Carbon Dioxide Level 26 mmol/L (21-32) Anion Gap 11 (6-14) Blood Urea Nitrogen 81 mg/dL (8-26) Creatinine 6.7 mg/dL (0.7-1.3) Estimated GFR (Cockcroft-Gault) 8.4 Glucose Level 152 mg/dL (70-99) Calcium Level 8.5 mg/dL (8.5-10.1) Phosphorus Level 5.0 mg/dL (2.6-4.7) Magnesium Level 1.7 mg/dL (1.8-2.4) Albumin 2.3 g/dL (3.4-5.0) Test 07/04/17 10:40 07/04/17 12:02 Erythrocyte Sedimentation Rate 65 (0-15) Glucose (Fingerstick) 219 mg/dL (70-99) MIREYA HART MD Jul 04, 2017 15:36
[2017-07-04] MEDS: ATORVASTATIN CALCIUM 10 MG TABLET. PO SCH (20:52)
[2017-07-04] MEDS: ZOLPIDEM 5 MG TABLET. PO SCH (20:53)
[2017-07-04] MEDS: DOXAZOSIN MESYLATE 4 MG TABLET. PO SCH (20:54)
[2017-07-04] MEDS: LISINOPRIL 5 MG TABLET. PO SCH (20:54)
[2017-07-04] MEDS: INSULIN DETEMIR 300 UNITS/3 ML INSULN.PEN. SQ SCH (21:07)
[2017-07-05] VITALS (8 sets, daily range): BP systolic 123–155; BP diastolic 40–66
[2017-07-05 06:00] LABS: BASO # 0.1 x10^3/uL (0.0-0.2); BASO % 1 % (0-3); EOS % 4 % (0-3); HEMATOCRIT 24.2 % (39.0-53.0); HEMOGLOBIN 7.9 g/dL (13.0-17.5); LYMPH # 0.3 x10^3/uL (1.0-4.8); LYMPH % 4 % (24-48); MEAN CORPUSCULAR HEMOGLOBIN 32 pg (25-35); MEAN CORPUSCULAR HGB CONC 33 g/dL (31-37); MEAN CORPUSCULAR VOLUME 97 fL (79-100); MONO % 5 % (0-9); NEUT % 86 % (31-73); PLATELET COUNT 102 x10^3/uL (140-400); RED CELL DISTRIBUTION WIDTH 18.4 % (11.5-14.5); WHITE BLOOD COUNT 6.4 x10^3/uL (4.0-11.0)
[2017-07-05 07:01] LABS: ALBUMIN 2.1 g/dL (3.4-5.0); CALCIUM 8.8 mg/dL (8.5-10.1); CREATININE 6.7 mg/dL (0.7-1.3); GFR 8.4; PHOSPHORUS 4.5 mg/dL (2.6-4.7); POTASSIUM 4.5 mmol/L (3.5-5.1)
[2017-07-05] MEDS: IPRATRPIUM/ALBUTEROL 0.5/2.5MG 3 ML NEBU. NEB SCH ×3 (07:15→19:37)
[2017-07-05] MEDS: POTASSIUM CHLORIDE 20 MEQ TABLET.ER. PO SCH ×2 (08:00→16:35)
[2017-07-05] MEDS ORDERED: ERTAPENEM 0.5 GM in IV NORMAL SALINE 50ML 50 ML IV SCH (08:00)
[2017-07-05] MEDS: INSULIN ASPART 300 UNITS/3 ML INSULN.PEN SQ SCH ×3 (08:00→16:57)
[2017-07-05] MEDS: CALCIUM CARBONATE 500 MG TAB.CHEW PO SCH ×3 (08:27→16:51)
[2017-07-05] MEDS: DOCUSATE SODIUM 100 MG CAPSULE. PO SCH (08:28)
[2017-07-05] MEDS: ASPIRIN ENTERIC COATED 81 MG TABLET.DR. PO SCH (08:28)
[2017-07-05] MEDS: CALCIUM ACETATE 667 MG CAPSULE PO SCH ×3 (08:29→16:51)
[2017-07-05] MEDS: SENNOSIDES/DOCUSATE 8.6/50MG TABLET. PO SCH ×2 (08:29→22:10)
[2017-07-05] MEDS: CARVEDILOL 12.5 MG TABLET. PO SCH ×2 (08:29→16:52)
[2017-07-05] MEDS: TAMSULOSIN 0.4 MG CAP.ER.24H. PO SCH (08:30)
[2017-07-05] MEDS: FUROSEMIDE 80 MG TABLET. PO SCH ×2 (08:30→13:27)
[2017-07-05] MEDS: cloNIDine HCL 0.2 MG TABLET PO SCH ×2 (08:30→21:00)
[2017-07-05] MEDS: ALLOPURINOL 100 MG TABLET. PO SCH (08:30)
[2017-07-05] MEDS: CHOLECALCIFEROL (VITAMIN D3) 1,000 UNIT TABLET PO SCH (08:30)
[2017-07-05] MEDS: METOPROLOL SUCC 24HR ER 25 MG TAB.ER.24H. PO SCH (08:31)
[2017-07-05] MEDS: SODIUM BICARBONATE 650 MG TABLET. PO SCH ×3 (08:31→16:51)
[2017-07-05] MEDS: FOLIC/VIT B COMP W-C (RENAL) TABLET. PO SCH (08:31)
[2017-07-05] MEDS: FERROUS SULFATE 325 MG TABLET. PO SCH (08:31)
--- NOTE | 2017-07-05 11:44 | PDOC ---
Infectious Disease Note Subjective Subjective Comfortable, denies pain Diminished appetite ROS ROS GEN: Denies fevers, chills, sweats CV: Denies chest pain RESP: Denies shortness of air, cough GI: Denies n/v/d Vital Sign Vital Signs Vital Signs Date Time Temp Pulse Resp B/P (MAP) Pulse Ox O2 Delivery O2 Flow Rate FiO2 07/05/17 09:15 97.5 76 20 138/66 (90) 100 Room Air 97.5 07/04/17 20:34 3.0 Physical Exam PHYSICAL EXAM GENERAL: Lying down, tired appearance, NAD HEENT: OC/OP pink LUNGS: Clear HEART: S1S2, + murmur ABD: Soft, NT, BS active, PDC EXT: No edema, no cyanosis; LUE AV fistula. Left foot wound vac in place - no area redness RN INTERNSHIP: Alert, responds appropriately SKIN: No rash RUE-PICC Labs Lab Laboratory Tests Test 07/04/17 12:02 07/04/17 17:04 07/04/17 21:00 07/05/17 05:30 Glucose (Fingerstick) 219 mg/dL (70-99) 213 mg/dL (70-99) 166 mg/dL (70-99) White Blood Count 6.4 x10^3/uL (4.0-11.0) Red Blood Count 2.50 x10^6/uL (4.30-5.70) Hemoglobin 7.9 g/dL (13.0-17.5) Hematocrit 24.2 % (39.0-53.0) Mean Corpuscular Volume 97 fL (79-100) Mean Corpuscular Hemoglobin 32 pg (25-35) Mean Corpuscular Hemoglobin Concent 33 g/dL (31-37) Red Cell Distribution Width 18.4 % (11.5-14.5) Platelet Count 102 x10^3/uL (140-400) Neutrophils (%) (Auto) 86 % (31-73) Lymphocytes (%) (Auto) 4 % (24-48) Monocytes (%) (Auto) 5 % (0-9) Eosinophils (%) (Auto) 4 % (0-3) Basophils (%) (Auto) 1 % (0-3) Neutrophils # (Auto) 5.5 x10^3uL (1.8-7.7) Lymphocytes # (Auto) 0.3 x10^3/uL (1.0-4.8) Monocytes # (Auto) 0.3 x10^3/uL (0.0-1.1) Eosinophils # (Auto) 0.2 x10^3/uL (0.0-0.7) Basophils # (Auto) 0.1 x10^3/uL (0.0-0.2) Sodium Level 137 mmol/L (136-145) Potassium Level 4.5 mmol/L (3.5-5.1) Chloride Level 100 mmol/L (98-107) Carbon Dioxide Level 28 mmol/L (21-32) Anion Gap 9 (6-14) Blood Urea Nitrogen 78 mg/dL (8-26) Creatinine 6.7 mg/dL (0.7-1.3) Estimated GFR (Cockcroft-Gault) 8.4 Glucose Level 106 mg/dL (70-99) Calcium Level 8.8 mg/dL (8.5-10.1) Phosphorus Level 4.5 mg/dL (2.6-4.7) Magnesium Level 2.1 mg/dL (1.8-2.4) Albumin 2.1 g/dL (3.4-5.0) Test 07/05/17 07:49 07/05/17 11:16 Glucose (Fingerstick) 89 mg/dL (70-99) 154 mg/dL (70-99) Micro ANAEROBIC RES 1 Preliminary No anaerobes recovered in 48 hours. 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 Lee. ESBL/MDR Klebsiella (S carbapenems & levofloxacin; I cipro otherwise resistant) End-stage renal disease, on peritoneal dialysis. Diabetes mellitus 2 with neuropathy. Coronary artery disease. 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 Acute on chronic anemia. History of recurrent gastrointestinal bleed. History of gastric ulcer, status post clip and epinephrine injection. History of chronic thrombocytopenia. PENICILLIN ALLERGY, has had amoxicillin and Zosyn in the past, tolerated it well. Plan Plan of Care Continue renally dosed Meropenem CXR line placement if not already done -wound care -weekly labs cbc, cmp and ESR while on antibiotics -optimal DM control -maintain isolation D/w RN Attending Co-Sign The patient was seen and interviewed as well as examined at the bedside. The chart was reviewed. The case was discussed. Agree with the plan of care. JOSE LIRIANO APRN Jul 05, 2017 11:44 SREEKANTH HART MD Jul 05, 2017 16:17
--- NOTE | 2017-07-05 12:17 | PDOC ---
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 DM2 ON insulin dysphagia resolved morbid obesity, BMI 32.5 acute on chronic anemia, esrd, gib h/o thrombocytopenia moderate malnutrition History of Present Illness History of Present Illness Pt is a pleasant 61 year old male who presents with a klebsiella wound infection of the left foot. He is on meropenem for abx. He is currently on wound vac. Pt is also on dialysis and has a PICC line. Pt was seen at bedside resting comfortably in NAD. Pt is being followed by orthopedics, nephrology, and ID. Will continue abx, wound care, and dialysis. Will continue to monitor. Vitals Vitals Vital Signs Date Time Temp Pulse Resp B/P (MAP) Pulse Ox O2 Delivery O2 Flow Rate FiO2 07/05/17 11:00 97.9 78 18 155/57 (89) 95 Room Air 97.9 07/04/17 20:34 3.0 Physical Exam General: Alert, Oriented X3, Cooperative, No acute distress Heart: Regular rate, Normal S1, Normal S2 Lungs: Clear Abdomen: Normal bowel sounds, Soft Extremities: No clubbing, No cyanosis Skin: Other (left foot post sx, wound vac on) Labs LABS Laboratory Tests Test 07/04/17 17:04 07/04/17 21:00 07/05/17 05:30 07/05/17 07:49 Glucose (Fingerstick) 213 mg/dL (70-99) 166 mg/dL (70-99) 89 mg/dL (70-99) White Blood Count 6.4 x10^3/uL (4.0-11.0) Red Blood Count 2.50 x10^6/uL (4.30-5.70) Hemoglobin 7.9 g/dL (13.0-17.5) Hematocrit 24.2 % (39.0-53.0) Mean Corpuscular Volume 97 fL (79-100) Mean Corpuscular Hemoglobin 32 pg (25-35) Mean Corpuscular Hemoglobin Concent 33 g/dL (31-37) Red Cell Distribution Width 18.4 % (11.5-14.5) Platelet Count 102 x10^3/uL (140-400) Neutrophils (%) (Auto) 86 % (31-73) Lymphocytes (%) (Auto) 4 % (24-48) Monocytes (%) (Auto) 5 % (0-9) Eosinophils (%) (Auto) 4 % (0-3) Basophils (%) (Auto) 1 % (0-3) Neutrophils # (Auto) 5.5 x10^3uL (1.8-7.7) Lymphocytes # (Auto) 0.3 x10^3/uL (1.0-4.8) Monocytes # (Auto) 0.3 x10^3/uL (0.0-1.1) Eosinophils # (Auto) 0.2 x10^3/uL (0.0-0.7) Basophils # (Auto) 0.1 x10^3/uL (0.0-0.2) Sodium Level 137 mmol/L (136-145) Potassium Level 4.5 mmol/L (3.5-5.1) Chloride Level 100 mmol/L (98-107) Carbon Dioxide Level 28 mmol/L (21-32) Anion Gap 9 (6-14) Blood Urea Nitrogen 78 mg/dL (8-26) Creatinine 6.7 mg/dL (0.7-1.3) Estimated GFR (Cockcroft-Gault) 8.4 Glucose Level 106 mg/dL (70-99) Calcium Level 8.8 mg/dL (8.5-10.1) Phosphorus Level 4.5 mg/dL (2.6-4.7) Magnesium Level 2.1 mg/dL (1.8-2.4) Albumin 2.1 g/dL (3.4-5.0) Test 07/05/17 11:16 Glucose (Fingerstick) 154 mg/dL (70-99) Review of Systems Review of Systems Pt complains of pain and fatigue. Assessment and Plan Assessmemt and Plan Assessment: Klebsiella wound, left foot left foot midfoot amputation with wound dehiscence post i and d on 07/02 recent Left foot gangree,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 recent left toes osteo post toes amputation with wound dehiscence recent Recurrent UGIB, s/p EGD, with gastric ulcer post clip and epi injection recent acute on chronic resp failure, post intubation, trach removed ESRD previous on PD,on short term of HD, back to PD now recent CAD with 3rd degree AVB with PPM DM2 ON insulin dysphagia resolved morbid obesity, BMI 32.5 acute on chronic anemia, esrd, gib h/o thrombocytopenia moderate malnutrition Plan: Continue abx Continue wound care PT/OT Continue homes meds Dialysis Recheck labs Appreciate subspecialty input Problems: Comment Review of Relevant I have reviewed the following items den (where applicable) has been applied. Labs Laboratory Tests Test 07/03/17 17:01 07/03/17 21:14 07/04/17 05:21 07/04/17 07:57 Glucose (Fingerstick) 193 mg/dL (70-99) 175 mg/dL (70-99) 128 mg/dL (70-99) Hemoglobin 8.3 g/dL (13.0-17.5) Sodium Level 136 mmol/L (136-145) Potassium Level 5.2 mmol/L (3.5-5.1) Chloride Level 99 mmol/L (98-107) Carbon Dioxide Level 26 mmol/L (21-32) Anion Gap 11 (6-14) Blood Urea Nitrogen 81 mg/dL (8-26) Creatinine 6.7 mg/dL (0.7-1.3) Estimated GFR (Cockcroft-Gault) 8.4 Glucose Level 152 mg/dL (70-99) Calcium Level 8.5 mg/dL (8.5-10.1) Phosphorus Level 5.0 mg/dL (2.6-4.7) Magnesium Level 1.7 mg/dL (1.8-2.4) Albumin 2.3 g/dL (3.4-5.0) Test 07/04/17 09:20 07/04/17 10:40 07/04/17 12:02 07/04/17 17:04 Nasal Screen MRSA (PCR) Negative (Negative) Erythrocyte Sedimentation Rate 65 (0-15) Glucose (Fingerstick) 219 mg/dL (70-99) 213 mg/dL (70-99) Test 07/04/17 21:00 07/05/17 05:30 07/05/17 07:49 07/05/17 11:16 Glucose (Fingerstick) 166 mg/dL (70-99) 89 mg/dL (70-99) 154 mg/dL (70-99) White Blood Count 6.4 x10^3/uL (4.0-11.0) Red Blood Count 2.50 x10^6/uL (4.30-5.70) Hemoglobin 7.9 g/dL (13.0-17.5) Hematocrit 24.2 % (39.0-53.0) Mean Corpuscular Volume 97 fL (79-100) Mean Corpuscular Hemoglobin 32 pg (25-35) Mean Corpuscular Hemoglobin Concent 33 g/dL (31-37) Red Cell Distribution Width 18.4 % (11.5-14.5) Platelet Count 102 x10^3/uL (140-400) Neutrophils (%) (Auto) 86 % (31-73) Lymphocytes (%) (Auto) 4 % (24-48) Monocytes (%) (Auto) 5 % (0-9) Eosinophils (%) (Auto) 4 % (0-3) Basophils (%) (Auto) 1 % (0-3) Neutrophils # (Auto) 5.5 x10^3uL (1.8-7.7) Lymphocytes # (Auto) 0.3 x10^3/uL (1.0-4.8) Monocytes # (Auto) 0.3 x10^3/uL (0.0-1.1) Eosinophils # (Auto) 0.2 x10^3/uL (0.0-0.7) Basophils # (Auto) 0.1 x10^3/uL (0.0-0.2) Sodium Level 137 mmol/L (136-145) Potassium Level 4.5 mmol/L (3.5-5.1) Chloride Level 100 mmol/L (98-107) Carbon Dioxide Level 28 mmol/L (21-32) Anion Gap 9 (6-14) Blood Urea Nitrogen 78 mg/dL (8-26) Creatinine 6.7 mg/dL (0.7-1.3) Estimated GFR (Cockcroft-Gault) 8.4 Glucose Level 106 mg/dL (70-99) Calcium Level 8.8 mg/dL (8.5-10.1) Phosphorus Level 4.5 mg/dL (2.6-4.7) Magnesium Level 2.1 mg/dL (1.8-2.4) Albumin 2.1 g/dL (3.4-5.0) Laboratory Tests Test 07/04/17 17:04 07/04/17 21:00 07/05/17 05:30 07/05/17 07:49 Glucose (Fingerstick) 213 mg/dL (70-99) 166 mg/dL (70-99) 89 mg/dL (70-99) White Blood Count 6.4 x10^3/uL (4.0-11.0) Red Blood Count 2.50 x10^6/uL (4.30-5.70) Hemoglobin 7.9 g/dL (13.0-17.5) Hematocrit 24.2 % (39.0-53.0) Mean Corpuscular Volume 97 fL (79-100) Mean Corpuscular Hemoglobin 32 pg (25-35) Mean Corpuscular Hemoglobin Concent 33 g/dL (31-37) Red Cell Distribution Width 18.4 % (11.5-14.5) Platelet Count 102 x10^3/uL (140-400) Neutrophils (%) (Auto) 86 % (31-73) Lymphocytes (%) (Auto) 4 % (24-48) Monocytes (%) (Auto) 5 % (0-9) Eosinophils (%) (Auto) 4 % (0-3) Basophils (%) (Auto) 1 % (0-3) Neutrophils # (Auto) 5.5 x10^3uL (1.8-7.7) Lymphocytes # (Auto) 0.3 x10^3/uL (1.0-4.8) Monocytes # (Auto) 0.3 x10^3/uL (0.0-1.1) Eosinophils # (Auto) 0.2 x10^3/uL (0.0-0.7) Basophils # (Auto) 0.1 x10^3/uL (0.0-0.2) Sodium Level 137 mmol/L (136-145) Potassium Level 4.5 mmol/L (3.5-5.1) Chloride Level 100 mmol/L (98-107) Carbon Dioxide Level 28 mmol/L (21-32) Anion Gap 9 (6-14) Blood Urea Nitrogen 78 mg/dL (8-26) Creatinine 6.7 mg/dL (0.7-1.3) Estimated GFR (Cockcroft-Gault) 8.4 Glucose Level 106 mg/dL (70-99) Calcium Level 8.8 mg/dL (8.5-10.1) Phosphorus Level 4.5 mg/dL (2.6-4.7) Magnesium Level 2.1 mg/dL (1.8-2.4) Albumin 2.1 g/dL (3.4-5.0) Test 07/05/17 11:16 Glucose (Fingerstick) 154 mg/dL (70-99) Microbiology 07/02/17 Anaerobic/Aerobic Culture - Preliminary, Resulted 07/02/17 Anaerobic Culture Result 1 (BELKIS) - Preliminary, Resulted 07/02/17 Aerobic Culture - Final, Resulted 07/02/17 Aerobic Culture Result 1 (BELKIS) - Final, Resulted Medications Current Medications Ondansetron HCl (Zofran) 4 mg PRN Q6HRS PRN IV NAUSEA/VOMITING; Start 07/02/17 at 07:00; Stop 07/03/17 at 06:59; Status DC Fentanyl Citrate (Fentanyl 2ml Vial) 25 mcg PRN Q5MIN PRN IV MILD PAIN; Start 07/02/17 at 07:00; Stop 07/03/17 at 06:59; Status DC Fentanyl Citrate (Fentanyl 2ml Vial) 50 mcg PRN Q5MIN PRN IV MODERATE PAIN; Start 07/02/17 at 07:00; Stop 07/03/17 at 06:59; Status DC Morphine Sulfate 1 mg PRN Q10MIN PRN IV SEVERE PAIN; Start 07/02/17 at 07:00; Stop 07/03/17 at 06:59; Status DC Ringer's Solution 1,000 ml @ 30 mls/hr Q24H IV ; Start 07/02/17 at 07:00; Stop 07/02/17 at 18:59; Status DC Lidocaine HCl (Xylocaine-Mpf 1% Vial) 2 ml PRN 1X PRN ID IV START; Start at 07:00; Stop 07/03/17 at 06:59; Status DC Hydromorphone HCl (Dilaudid) 0.5 mg PRN Q10MIN PRN IV SEV PAIN, Second choice; Start 07/02/17 at 07:00; Stop 07/03/17 at 06:59; Status DC Prochlorperazine Edisylate (Compazine) 5 mg PACU PRN PRN IV NAUSEA, MRX1; Start 07/02/17 at 07:00; Stop 07/03/17 at 06:59; Status DC Lidocaine HCl 30 ml STK-MED ONCE .ROUTE ; Start 07/02/17 at 07:13; Stop at 07:14; Status DC Bupivacaine HCl (Sensorcaine Mpf 0.5%) 30 ml STK-MED ONCE .ROUTE ; Start at 07:13; Stop 07/02/17 at 07:14; Status DC Clindamycin Phosphate 50 ml @ As Directed STK-MED ONCE IV ; Start 07/02/17 at 08 :19; Stop 07/02/17 at 08:20; Status DC Al Hydroxide/Mg Hydroxide (Mylanta Plus Xs) 30 ml PRN Q3HRS PRN PO HEARTBURN / GAS; Start 07/02/17 at 08:30 Oxycodone HCl (Roxicodone) 5 mg PRN Q3HRS PRN PO BREAKTHROUGH PAIN; Start 07/02 at 08:30 Morphine Sulfate 1 mg PRN Q1HR PRN IV PAIN; Start 07/02/17 at 08:30 Acetaminophen/ Hydrocodone Bitart (Lortab 5/325) 1 tab PRN Q4HRS PRN PO MILD PAIN Last administered on 07/03/17 21:10; Start 07/02/17 at 08:30 Senna/Docusate Sodium (Senna Plus) 1 tab BID PO Last administered on 08:29; Start 07/02/17 at 10:00 Magnesium Hydroxide (Milk Of Magnesia) 2,400 mg PRN Q12HR PRN PO CONSTIPATION; Start 07/02/17 at 08:30 Sodium Chloride 1,000 ml @ 100 mls/hr Q10H IV Last administered on 07/02/17 08:51; Start 07/02/17 at 08:30; Stop 07/03/17 at 10:02; Status DC Allopurinol (Zyloprim) 100 mg DAILY PO Last administered on 07/05/17 08:30; Start 07/02/17 at 09:00 Aspirin (Ecotrin) 81 mg DAILY PO Last administered on 07/05/17 08:28; Start 07/02/17 at 09:00 Vitamin D (Vitamin D3) 1,000 unit DAILY PO Last administered on 07/05/17 08: 30; Start 07/02/17 at 09:00 Clonidine HCl (Catapres) 0.2 mg BID PO Last administered on 07/05/17 08:30; Start 07/02/17 at 09:00 Darbepoetin Fredi (Aranesp) 60 mcg Sa SQ ; Start 07/05/17 at 21:00; Stop at 21:00; Status DC Docusate Sodium (Colace) 200 mg DAILY PO Last administered on 07/05/17 08:28 ; Start 07/02/17 at 10:00 Doxazosin Mesylate (Cardura) 4 mg HS PO Last administered on 07/04/17 20:54; Start 07/02/17 at 21:00 Ferrous Sulfate (Feosol) 325 mg DAILYWBKFT PO Last administered on 07/05/17 08:31; Start 07/02/17 at 09:00 Vitamin B Complex/ Vitamin C (Richelle-Harsha) 1 tab DAILY PO Last administered on 08:31; Start 07/02/17 at 09:00 Furosemide (Lasix) 80 mg BID92 PO Last administered on 07/05/17 08:30; Start 07/02/17 at 09:00 Albuterol/ Ipratropium (Duoneb) 3 ml TID NEB Last administered on 07/05/17 07 :15; Start 07/02/17 at 09:00 Lisinopril (Prinivil) 5 mg HS PO Last administered on 07/04/17 20:54; Start 07/02/17 at 21:00 Metoprolol Succinate (Toprol Xl) 25 mg DAILY PO Last administered on 08:31; Start 07/02/17 at 09:00 Sodium Bicarbonate (Sodium Bicarbonate) 650 mg TIDAC PO Last administered on 11:54; Start 07/02/17 at 11:30 Tamsulosin HCl (Flomax) 0.4 mg DAILY PO Last administered on 07/05/17 08:30; Start 07/02/17 at 09:00 Calcium Acetate (Phoslo) 667 mg TIDWMEALS PO Last administered on 07/05/17 11 :54; Start 07/02/17 at 12:00 Calcium Carbonate/ Glycine (Tums) 500 mg TIDWMEALS PO Last administered on 11:55; Start 07/02/17 at 12:00 Carvedilol (Coreg) 25 mg BIDWMEALS PO Last administered on 07/05/17 08:29; Start 07/02/17 at 17:00 Insulin Detemir (Levemir) 20 units QHS SQ Last administered on 07/04/17 21:07 ; Start 07/02/17 at 21:00 Potassium Chloride (Klor-Con) 20 meq BIDWMEALS PO Last administered on 09:14; Start 07/02/17 at 10:00; Stop 07/03/17 at 10:02; Status DC Atorvastatin Calcium (Lipitor) 5 mg QHS PO Last administered on 07/04/17 20: 52; Start 07/02/17 at 21:00 Non-Formulary Medication 400 mg BID PO ; Start 07/02/17 at 09:00; Stop 07/02/17 at 10:20; Status DC Zolpidem Tartrate (Ambien) 5 mg PRN QHS PRN PO INSOMNIA; Start 07/02/17 at 10: 15 Insulin Aspart (NovoLOG) 0-5 UNITS TIDWMEALS SQ Last administered on 07/02/17 17:22; Start 07/02/17 at 12:00; Stop 07/03/17 at 08:59; Status DC Dextrose (Dextrose 50%-Water Syringe) 12.5 gm PRN Q15MIN PRN IV SEE COMMENTS; Start 07/02/17 at 08:30; Stop 07/03/17 at 14:12; Status DC Clindamycin Phosphate 50 ml @ 100 mls/hr 1X ONCE IV ; Start 07/02/17 at 08:45 ; Stop 07/02/17 at 09:03; Status DC Propofol 20 ml @ As Directed STK-MED ONCE IV ; Start 07/02/17 at 08:44; Stop at 08:45; Status DC Lidocaine HCl (Lidocaine Pf 2% Vial) 5 ml STK-MED ONCE .ROUTE ; Start 07/02/17 at 08:44; Stop 07/02/17 at 08:45; Status DC Midazolam HCl (Versed) 2 mg STK-MED ONCE .ROUTE ; Start 07/02/17 at 08:45; Stop 07/02/17 at 08:46; Status DC Ephedrine Sulfate (Akovaz) 50 mg STK-MED ONCE .ROUTE ; Start 07/02/17 at 09:28; Stop 07/02/17 at 09:29; Status DC Phenylephrine HCl (Krunal-Synephrine Inj) 10 mg STK-MED ONCE .ROUTE ; Start at 09:37; Stop 07/02/17 at 09:38; Status DC Dexamethasone Sodium Phosphate (Decadron) 20 mg STK-MED ONCE .ROUTE ; Start 07/02/17 at 09:37; Stop 07/02/17 at 09:38; Status DC Ondansetron HCl (Zofran) 4 mg STK-MED ONCE .ROUTE ; Start 07/02/17 at 09:37; Stop 07/02/17 at 09:38; Status DC Sevoflurane (Ultane) 15 ml STK-MED ONCE IH ; Start 07/02/17 at 09:53; Stop 07/02 at 09:54; Status DC Zolpidem Tartrate (Ambien) 5 mg QHS PO Last administered on 07/04/17t 20:53; Start 07/02/17 at 21:00 Acetaminophen (Tylenol) 650 mg PRN Q6HRS PRN PO FEVER Last administered on 07/02t 23:18; Start 07/02/17 at 15:45 Ondansetron HCl (Zofran) 4 mg PRN Q6HRS PRN IV NAUSEA/VOMITING; Start 07/02/17 at 15:45 Morphine Sulfate 2 mg PRN Q2HR PRN IV PAIN; Start 07/02/17 at 15:45 Tramadol HCl (Ultram) 50 mg PRN Q6HRS PRN PO PAIN; Start 07/02/17 at 15:45 Hydralazine HCl (Apresoline Inj) 10 mg PRN Q4HRS PRN IVP ELEVATED BP, SEE COMMENTS; Start 07/02/17 at 15:45 Docusate Sodium (Colace) 100 mg PRN DAILY PRN PO CONSTIPATION; Start 07/02/17 at 15:45 Insulin Aspart (NovoLOG) 0-9 UNITS TIDWMEALS SQ Last administered on 12:01; Start 07/03/17 at 12:00 Dextrose (Dextrose 50%-Water Syringe) 12.5 gm PRN Q15MIN PRN IV SEE COMMENTS; Start 07/03/17 at 09:00 Magnesium Sulfate/ Dextrose 50 ml @ 25 mls/hr PRN DAILY PRN IV for Mag < 1.7 on am labs; Start 07/03/17 at 09:15 Clindamycin Phosphate (Cleocin 900mg Premix) 900 mg STK-MED ONCE IV ; Start 07/02/17 at 08:00; Stop 07/03/17 at 09:11; Status DC Insulin Aspart (NovoLOG) 5 units 1X ONCE SQ Last administered on 07/03/17 09: 46; Start 07/03/17 at 09:30; Stop 07/03/17 at 09:31; Status DC Potassium Chloride (Klor-Con) 20 meq BIDWMEALS PO Last administered on 16:25; Start 07/03/17 at 17:00 Ciprofloxacin/ Dextrose 200 ml @ 200 mls/hr DAILY IV ; Start 07/03/17 at 14:00 ; Stop 07/03/17 at 14:38; Status DC Ciprofloxacin/ Dextrose 200 ml @ 200 mls/hr Q18H IV ; Start 07/04/17 at 09:00 ; Stop 07/04/17 at 11:51; Status DC Ciprofloxacin/ Dextrose 200 ml @ 200 mls/hr 1X ONCE IV Last administered on 07/03/17 16:24; Start 07/03/17 at 15:30; Stop 07/04/17 at 11:51; Status DC Magnesium Sulfate/ Dextrose 50 ml @ 25 mls/hr 1X ONCE IV Last administered on 07/04/17 11:41; Start 07/04/17 at 10:30; Stop 07/04/17 at 12:29; Status DC Ertapenem 0.5 gm/ Sodium Chloride 50 ml @ 100 mls/hr DAILY08 IV ; Start at 08:00; Status UNV Meropenem (Merrem) 500 mg Q24H IVP Last administered on 07/04/17t 14:49; Start 07/04/17 at 13:00 Darbepoetin Fredi (Aranesp) 100 mcg QSA@2100 SQ ; Start 07/05/17 at 21:00 Active Scripts Active Reported Carvedilol 25 Mg Tablet 1 Tab PO BID Coq-10 (Ubidecarenone) 100 Mg Capsule 400 Mg PO BID Krill Oil 500 mg Softgel (Krill/Om-3/Dha/Epa/Phospho/Ast) 1 Each Capsule 1 Each PO DAILY Vitamin D3 (Cholecalciferol (Vitamin D3)) 1,000 Unit Tablet 1 Tab PO DAILY Potassium Chloride 20 Meq Tablet.er 20 Meq PO BID Metoprolol Succinate ( Xl ) (Metoprolol Succinate) 25 Mg Tab.er.24h 1 Tab PO DAILY Calcium Acetate 667 Mg Tablet 1,334 Mg PO TIDWMEALS Ambien (Zolpidem Tartrate) 10 Mg Tablet 1 Tab PO QHS Humalog (Insulin Lispro) 100 Unit/1 Ml Cartridge 0 SQ Doxazosin Mesylate 4 Mg Tablet 4 Mg PO HS Nephro-Harsha Tablet (Folic Acid/Vitamin B Comp W-C) 0.8 Mg Tablet 1 Tab PO DAILY Aspir 81 (Aspirin) 81 Mg Tablet.dr 1 Tab PO DAILY Furosemide 80 Mg Tablet 80 Mg PO BID Sodium Bicarbonate 650 Mg Tablet 1 Tab PO TIDAC Artificial Tears Eye Drops (Dextran 70/Hypromellose) 15 Ml Drops 1 Drop EACHEYE BID Pravastatin Sodium 10 Mg Tablet 1 Tab PO QHS Tamsulosin Hcl 0.4 Mg Cap.er.24h 1 Cap PO DAILY Docusate Sodium 100 Mg Capsule 200 Mg PO DAILY Aranesp Syringe (Darbepoetin Fredi In Polysorbat) 60 Mcg/0.3 Ml Disp.syrin 60 Mcg SQ WEEKLY Ferrous Sulfate 325 Mg Tablet 1 Tab PO DAILY Duoneb 0.5-3(2.5) Mg/3 Ml (Albuterol/Ipratropium) 3 Ml Ampul.neb 3 Ml NEB TID Tums Ultra (Calcium Carbonate) 400 Mg Tab.chew 500 Mg PO TID Allopurinol 100 Mg Tablet 1 Tab PO DAILY Clonidine Hcl 0.2 Mg Tablet 1 Tab PO PRN TAKES ONLY IF HIS BLOOD PRESSURE IS ELEVATED Lisinopril 5 Mg Tablet 1 Tab PO HS Levemir (Insulin Detemir) 100 Unit/1 Ml Vial 20 Unit SQ HS Vitals/I & O Vital Sign - Last 24 Hours 07/04/17 07/04/17 07/04/17 07/04/17 13:09 14:45 14:55 17:07 Temp 96.8 96.8 96.8 96.8 Pulse 75 75 75 Resp 16 B/P (MAP) 142/74 (96) 142/74 (96) 142/74 Pulse Ox 96 O2 Delivery BiPAP/CPAP Room Air Room Air O2 Flow Rate 3.0 97.0 07/04/17 07/04/17 07/04/17 07/04/17 20:00 20:34 20:53 20:54 Pulse 75 75 B/P (MAP) 142/74 142/74 O2 Delivery Room Air BiPAP/CPAP O2 Flow Rate 3.0 07/04/17 07/04/17 07/05/17 07/05/17 20:54 23:00 03:00 07:00 Temp 97.5 97.7 97.5 97.5 97.7 97.5 Pulse 75 78 65 76 Resp 20 18 20 B/P (MAP) 142/74 120/31 (60) 123/55 (77) 138/66 (90) Pulse Ox 93 99 100 O2 Delivery Room Air 07/05/17 07/05/17 07/05/17 07/05/17 07:16 07:25 08:00 08:29 Pulse 76 B/P (MAP) 138/66 Pulse Ox 100 O2 Delivery Room Air Room Air Room Air 07/05/17 07/05/17 07/05/17 07/05/17 08:30 08:31 09:15 11:00 Temp 97.5 97.9 97.5 97.9 Pulse 76 76 76 78 Resp 20 18 B/P (MAP) 138/66 138/66 138/66 (90) 155/57 (89) Pulse Ox 100 95 O2 Delivery Room Air Room Air DAVONTE LIZARRAGA III DO Jul 05, 2017 12:17
[2017-07-05] MEDS: MEROPENEM IV Push 500 MG VIAL. IVP SCH (13:27)
--- NOTE | 2017-07-05 13:43 | RAD ---
EXAM: Chest, single view. HISTORY: PICC placement. COMPARISON: 04/28/2017. FINDINGS: A frontal view of the chest obtained. There is a right PICC with the tip in the superior vena cava. This is partially obscured due to right-sided cardiac pacemaker defibrillator leads. There are median sternotomy changes. There is no infiltrate, effusion or pneumothorax. IMPRESSION: 1. Right PICC with the tip in the superior vena cava. 2. Dual-lead right cardiac pacemaker defibrillator.
--- NOTE | 2017-07-05 14:21 | PDOC ---
ORTHO PROGRESS NOTES Subjective PICC placed, CXR confirms position. "twinge of pain" from time to time. No complaints Vitals Vital Signs Date Time Temp Pulse Resp B/P (MAP) Pulse Ox O2 Delivery O2 Flow Rate FiO2 07/05/17 12:33 Room Air 07/05/17 12:00 97.9 78 155/57 (89) 97.9 07/05/17 11:00 18 95 07/04/17 20:34 3.0 Labs Laboratory Tests Test 07/03/17 17:01 07/03/17 21:14 07/04/17 05:21 07/04/17 07:57 Glucose (Fingerstick) 193 mg/dL (70-99) 175 mg/dL (70-99) 128 mg/dL (70-99) Hemoglobin 8.3 g/dL (13.0-17.5) Sodium Level 136 mmol/L (136-145) Potassium Level 5.2 mmol/L (3.5-5.1) Chloride Level 99 mmol/L (98-107) Carbon Dioxide Level 26 mmol/L (21-32) Anion Gap 11 (6-14) Blood Urea Nitrogen 81 mg/dL (8-26) Creatinine 6.7 mg/dL (0.7-1.3) Estimated GFR (Cockcroft-Gault) 8.4 Glucose Level 152 mg/dL (70-99) Calcium Level 8.5 mg/dL (8.5-10.1) Phosphorus Level 5.0 mg/dL (2.6-4.7) Magnesium Level 1.7 mg/dL (1.8-2.4) Albumin 2.3 g/dL (3.4-5.0) Test 07/04/17 09:20 07/04/17 10:40 07/04/17 12:02 07/04/17 17:04 Nasal Screen MRSA (PCR) Negative (Negative) Erythrocyte Sedimentation Rate 65 (0-15) Glucose (Fingerstick) 219 mg/dL (70-99) 213 mg/dL (70-99) Test 07/04/17 21:00 07/05/17 05:30 07/05/17 07:49 07/05/17 11:16 Glucose (Fingerstick) 166 mg/dL (70-99) 89 mg/dL (70-99) 154 mg/dL (70-99) White Blood Count 6.4 x10^3/uL (4.0-11.0) Red Blood Count 2.50 x10^6/uL (4.30-5.70) Hemoglobin 7.9 g/dL (13.0-17.5) Hematocrit 24.2 % (39.0-53.0) Mean Corpuscular Volume 97 fL (79-100) Mean Corpuscular Hemoglobin 32 pg (25-35) Mean Corpuscular Hemoglobin Concent 33 g/dL (31-37) Red Cell Distribution Width 18.4 % (11.5-14.5) Platelet Count 102 x10^3/uL (140-400) Neutrophils (%) (Auto) 86 % (31-73) Lymphocytes (%) (Auto) 4 % (24-48) Monocytes (%) (Auto) 5 % (0-9) Eosinophils (%) (Auto) 4 % (0-3) Basophils (%) (Auto) 1 % (0-3) Neutrophils # (Auto) 5.5 x10^3uL (1.8-7.7) Lymphocytes # (Auto) 0.3 x10^3/uL (1.0-4.8) Monocytes # (Auto) 0.3 x10^3/uL (0.0-1.1) Eosinophils # (Auto) 0.2 x10^3/uL (0.0-0.7) Basophils # (Auto) 0.1 x10^3/uL (0.0-0.2) Sodium Level 137 mmol/L (136-145) Potassium Level 4.5 mmol/L (3.5-5.1) Chloride Level 100 mmol/L (98-107) Carbon Dioxide Level 28 mmol/L (21-32) Anion Gap 9 (6-14) Blood Urea Nitrogen 78 mg/dL (8-26) Creatinine 6.7 mg/dL (0.7-1.3) Estimated GFR (Cockcroft-Gault) 8.4 Glucose Level 106 mg/dL (70-99) Calcium Level 8.8 mg/dL (8.5-10.1) Phosphorus Level 4.5 mg/dL (2.6-4.7) Magnesium Level 2.1 mg/dL (1.8-2.4) Albumin 2.1 g/dL (3.4-5.0) Laboratory Tests Test 07/04/17 17:04 07/04/17 21:00 07/05/17 05:30 07/05/17 07:49 Glucose (Fingerstick) 213 mg/dL (70-99) 166 mg/dL (70-99) 89 mg/dL (70-99) White Blood Count 6.4 x10^3/uL (4.0-11.0) Red Blood Count 2.50 x10^6/uL (4.30-5.70) Hemoglobin 7.9 g/dL (13.0-17.5) Hematocrit 24.2 % (39.0-53.0) Mean Corpuscular Volume 97 fL (79-100) Mean Corpuscular Hemoglobin 32 pg (25-35) Mean Corpuscular Hemoglobin Concent 33 g/dL (31-37) Red Cell Distribution Width 18.4 % (11.5-14.5) Platelet Count 102 x10^3/uL (140-400) Neutrophils (%) (Auto) 86 % (31-73) Lymphocytes (%) (Auto) 4 % (24-48) Monocytes (%) (Auto) 5 % (0-9) Eosinophils (%) (Auto) 4 % (0-3) Basophils (%) (Auto) 1 % (0-3) Neutrophils # (Auto) 5.5 x10^3uL (1.8-7.7) Lymphocytes # (Auto) 0.3 x10^3/uL (1.0-4.8) Monocytes # (Auto) 0.3 x10^3/uL (0.0-1.1) Eosinophils # (Auto) 0.2 x10^3/uL (0.0-0.7) Basophils # (Auto) 0.1 x10^3/uL (0.0-0.2) Sodium Level 137 mmol/L (136-145) Potassium Level 4.5 mmol/L (3.5-5.1) Chloride Level 100 mmol/L (98-107) Carbon Dioxide Level 28 mmol/L (21-32) Anion Gap 9 (6-14) Blood Urea Nitrogen 78 mg/dL (8-26) Creatinine 6.7 mg/dL (0.7-1.3) Estimated GFR (Cockcroft-Gault) 8.4 Glucose Level 106 mg/dL (70-99) Calcium Level 8.8 mg/dL (8.5-10.1) Phosphorus Level 4.5 mg/dL (2.6-4.7) Magnesium Level 2.1 mg/dL (1.8-2.4) Albumin 2.1 g/dL (3.4-5.0) Test 07/05/17 11:16 Glucose (Fingerstick) 154 mg/dL (70-99) Notes A and A VAC in place with good seal at LLE in bed Assessment and Plan awaiting placement will cont current treatments JOSELITO PONCE II, MD Jul 05, 2017 14:21
--- NOTE | 2017-07-05 14:59 | PDOC ---
PROGRESS NOTES Subjective Subjective SEEN IN FOLLOW UP OF ESRD Objective Objective Vital Signs Date Time Temp Pulse Resp B/P (MAP) Pulse Ox O2 Delivery O2 Flow Rate FiO2 07/05/17 12:33 Room Air 07/05/17 12:00 97.9 78 155/57 (89) 97.9 07/05/17 11:00 18 95 07/04/17 20:34 3.0 Physical Exam Abdomen: Normal bowel sounds, Soft, No tenderness, No hepatosplenomegaly, No masses Heart: Regular rate, Normal S1, Normal S2, No murmurs, Gallops Extremities: No clubbing, No cyanosis, No edema, Normal pulses, No tenderness/ swelling General: Alert, Oriented X3, Cooperative, No acute distress Lungs: Clear to auscultation, Normal air movement Psych/Mental Status: Mental status NL, Mood NL Diagnosis RENAL FAILURE: ESRD Plan Plan of Care CONT SAME PD. DOING WELL Comment Review of Relevant I have reviewed the following items den (where applicable) has been applied. Labs Laboratory Tests Test 07/03/17 17:01 07/03/17 21:14 07/04/17 05:21 07/04/17 07:57 Glucose (Fingerstick) 193 mg/dL (70-99) 175 mg/dL (70-99) 128 mg/dL (70-99) Hemoglobin 8.3 g/dL (13.0-17.5) Sodium Level 136 mmol/L (136-145) Potassium Level 5.2 mmol/L (3.5-5.1) Chloride Level 99 mmol/L (98-107) Carbon Dioxide Level 26 mmol/L (21-32) Anion Gap 11 (6-14) Blood Urea Nitrogen 81 mg/dL (8-26) Creatinine 6.7 mg/dL (0.7-1.3) Estimated GFR (Cockcroft-Gault) 8.4 Glucose Level 152 mg/dL (70-99) Calcium Level 8.5 mg/dL (8.5-10.1) Phosphorus Level 5.0 mg/dL (2.6-4.7) Magnesium Level 1.7 mg/dL (1.8-2.4) Albumin 2.3 g/dL (3.4-5.0) Test 07/04/17 09:20 07/04/17 10:40 07/04/17 12:02 07/04/17 17:04 Nasal Screen MRSA (PCR) Negative (Negative) Erythrocyte Sedimentation Rate 65 (0-15) Glucose (Fingerstick) 219 mg/dL (70-99) 213 mg/dL (70-99) Test 07/04/17 21:00 07/05/17 05:30 07/05/17 07:49 07/05/17 11:16 Glucose (Fingerstick) 166 mg/dL (70-99) 89 mg/dL (70-99) 154 mg/dL (70-99) White Blood Count 6.4 x10^3/uL (4.0-11.0) Red Blood Count 2.50 x10^6/uL (4.30-5.70) Hemoglobin 7.9 g/dL (13.0-17.5) Hematocrit 24.2 % (39.0-53.0) Mean Corpuscular Volume 97 fL (79-100) Mean Corpuscular Hemoglobin 32 pg (25-35) Mean Corpuscular Hemoglobin Concent 33 g/dL (31-37) Red Cell Distribution Width 18.4 % (11.5-14.5) Platelet Count 102 x10^3/uL (140-400) Neutrophils (%) (Auto) 86 % (31-73) Lymphocytes (%) (Auto) 4 % (24-48) Monocytes (%) (Auto) 5 % (0-9) Eosinophils (%) (Auto) 4 % (0-3) Basophils (%) (Auto) 1 % (0-3) Neutrophils # (Auto) 5.5 x10^3uL (1.8-7.7) Lymphocytes # (Auto) 0.3 x10^3/uL (1.0-4.8) Monocytes # (Auto) 0.3 x10^3/uL (0.0-1.1) Eosinophils # (Auto) 0.2 x10^3/uL (0.0-0.7) Basophils # (Auto) 0.1 x10^3/uL (0.0-0.2) Sodium Level 137 mmol/L (136-145) Potassium Level 4.5 mmol/L (3.5-5.1) Chloride Level 100 mmol/L (98-107) Carbon Dioxide Level 28 mmol/L (21-32) Anion Gap 9 (6-14) Blood Urea Nitrogen 78 mg/dL (8-26) Creatinine 6.7 mg/dL (0.7-1.3) Estimated GFR (Cockcroft-Gault) 8.4 Glucose Level 106 mg/dL (70-99) Calcium Level 8.8 mg/dL (8.5-10.1) Phosphorus Level 4.5 mg/dL (2.6-4.7) Magnesium Level 2.1 mg/dL (1.8-2.4) Albumin 2.1 g/dL (3.4-5.0) Laboratory Tests Test 07/04/17 17:04 07/04/17 21:00 07/05/17 05:30 07/05/17 07:49 Glucose (Fingerstick) 213 mg/dL (70-99) 166 mg/dL (70-99) 89 mg/dL (70-99) White Blood Count 6.4 x10^3/uL (4.0-11.0) Red Blood Count 2.50 x10^6/uL (4.30-5.70) Hemoglobin 7.9 g/dL (13.0-17.5) Hematocrit 24.2 % (39.0-53.0) Mean Corpuscular Volume 97 fL (79-100) Mean Corpuscular Hemoglobin 32 pg (25-35) Mean Corpuscular Hemoglobin Concent 33 g/dL (31-37) Red Cell Distribution Width 18.4 % (11.5-14.5) Platelet Count 102 x10^3/uL (140-400) Neutrophils (%) (Auto) 86 % (31-73) Lymphocytes (%) (Auto) 4 % (24-48) Monocytes (%) (Auto) 5 % (0-9) Eosinophils (%) (Auto) 4 % (0-3) Basophils (%) (Auto) 1 % (0-3) Neutrophils # (Auto) 5.5 x10^3uL (1.8-7.7) Lymphocytes # (Auto) 0.3 x10^3/uL (1.0-4.8) Monocytes # (Auto) 0.3 x10^3/uL (0.0-1.1) Eosinophils # (Auto) 0.2 x10^3/uL (0.0-0.7) Basophils # (Auto) 0.1 x10^3/uL (0.0-0.2) Sodium Level 137 mmol/L (136-145) Potassium Level 4.5 mmol/L (3.5-5.1) Chloride Level 100 mmol/L (98-107) Carbon Dioxide Level 28 mmol/L (21-32) Anion Gap 9 (6-14) Blood Urea Nitrogen 78 mg/dL (8-26) Creatinine 6.7 mg/dL (0.7-1.3) Estimated GFR (Cockcroft-Gault) 8.4 Glucose Level 106 mg/dL (70-99) Calcium Level 8.8 mg/dL (8.5-10.1) Phosphorus Level 4.5 mg/dL (2.6-4.7) Magnesium Level 2.1 mg/dL (1.8-2.4) Albumin 2.1 g/dL (3.4-5.0) Test 07/05/17 11:16 Glucose (Fingerstick) 154 mg/dL (70-99) Microbiology 07/02/17 Anaerobic/Aerobic Culture - Preliminary, Resulted 07/02/17 Anaerobic Culture Result 1 (BELKIS) - Preliminary, Resulted 07/02/17 Aerobic Culture - Final, Resulted 07/02/17 Aerobic Culture Result 1 (BELKIS) - Final, Resulted Medications Current Medications Ondansetron HCl (Zofran) 4 mg PRN Q6HRS PRN IV NAUSEA/VOMITING; Start 07/02/17 at 07:00; Stop 07/03/17 at 06:59; Status DC Fentanyl Citrate (Fentanyl 2ml Vial) 25 mcg PRN Q5MIN PRN IV MILD PAIN; Start 07/02/17 at 07:00; Stop 07/03/17 at 06:59; Status DC Fentanyl Citrate (Fentanyl 2ml Vial) 50 mcg PRN Q5MIN PRN IV MODERATE PAIN; Start 07/02/17 at 07:00; Stop 07/03/17 at 06:59; Status DC Morphine Sulfate 1 mg PRN Q10MIN PRN IV SEVERE PAIN; Start 07/02/17 at 07:00; Stop 07/03/17 at 06:59; Status DC Ringer's Solution 1,000 ml @ 30 mls/hr Q24H IV ; Start 07/02/17 at 07:00; Stop 07/02/17 at 18:59; Status DC Lidocaine HCl (Xylocaine-Mpf 1% Vial) 2 ml PRN 1X PRN ID IV START; Start at 07:00; Stop 07/03/17 at 06:59; Status DC Hydromorphone HCl (Dilaudid) 0.5 mg PRN Q10MIN PRN IV SEV PAIN, Second choice; Start 07/02/17 at 07:00; Stop 07/03/17 at 06:59; Status DC Prochlorperazine Edisylate (Compazine) 5 mg PACU PRN PRN IV NAUSEA, MRX1; Start 07/02/17 at 07:00; Stop 07/03/17 at 06:59; Status DC Lidocaine HCl 30 ml STK-MED ONCE .ROUTE ; Start 07/02/17 at 07:13; Stop at 07:14; Status DC Bupivacaine HCl (Sensorcaine Mpf 0.5%) 30 ml STK-MED ONCE .ROUTE ; Start at 07:13; Stop 07/02/17 at 07:14; Status DC Clindamycin Phosphate 50 ml @ As Directed STK-MED ONCE IV ; Start 07/02/17 at 08 :19; Stop 07/02/17 at 08:20; Status DC Al Hydroxide/Mg Hydroxide (Mylanta Plus Xs) 30 ml PRN Q3HRS PRN PO HEARTBURN / GAS; Start 07/02/17 at 08:30 Oxycodone HCl (Roxicodone) 5 mg PRN Q3HRS PRN PO BREAKTHROUGH PAIN; Start 07/02 at 08:30 Morphine Sulfate 1 mg PRN Q1HR PRN IV PAIN; Start 07/02/17 at 08:30 Acetaminophen/ Hydrocodone Bitart (Lortab 5/325) 1 tab PRN Q4HRS PRN PO MILD PAIN Last administered on 07/03/17t 21:10; Start 07/02/17 at 08:30 Senna/Docusate Sodium (Senna Plus) 1 tab BID PO Last administered on 08:29; Start 07/02/17 at 10:00 Magnesium Hydroxide (Milk Of Magnesia) 2,400 mg PRN Q12HR PRN PO CONSTIPATION; Start 07/02/17 at 08:30 Sodium Chloride 1,000 ml @ 100 mls/hr Q10H IV Last administered on 07/02/17 08:51; Start 07/02/17 at 08:30; Stop 07/03/17 at 10:02; Status DC Allopurinol (Zyloprim) 100 mg DAILY PO Last administered on 07/05/17 08:30; Start 07/02/17 at 09:00 Aspirin (Ecotrin) 81 mg DAILY PO Last administered on 07/05/17 08:28; Start 07/02/17 at 09:00 Vitamin D (Vitamin D3) 1,000 unit DAILY PO Last administered on 07/05/17 08: 30; Start 07/02/17 at 09:00 Clonidine HCl (Catapres) 0.2 mg BID PO Last administered on 07/05/17 08:30; Start 07/02/17 at 09:00 Darbepoetin Fredi (Aranesp) 60 mcg Sa SQ ; Start 07/05/17 at 21:00; Stop at 21:00; Status DC Docusate Sodium (Colace) 200 mg DAILY PO Last administered on 07/05/17 08:28 ; Start 07/02/17 at 10:00 Doxazosin Mesylate (Cardura) 4 mg HS PO Last administered on 07/04/17 20:54; Start 07/02/17 at 21:00 Ferrous Sulfate (Feosol) 325 mg DAILYWBKFT PO Last administered on 07/05/17 08:31; Start 07/02/17 at 09:00 Vitamin B Complex/ Vitamin C (Richelle-Harsha) 1 tab DAILY PO Last administered on 08:31; Start 07/02/17 at 09:00 Furosemide (Lasix) 80 mg BID92 PO Last administered on 07/05/17 13:27; Start 07/02/17 at 09:00 Albuterol/ Ipratropium (Duoneb) 3 ml TID NEB Last administered on 07/05/17 12 :32; Start 07/02/17 at 09:00 Lisinopril (Prinivil) 5 mg HS PO Last administered on 07/04/17 20:54; Start 07/02/17 at 21:00 Metoprolol Succinate (Toprol Xl) 25 mg DAILY PO Last administered on 08:31; Start 07/02/17 at 09:00 Sodium Bicarbonate (Sodium Bicarbonate) 650 mg TIDAC PO Last administered on 11:54; Start 07/02/17 at 11:30 Tamsulosin HCl (Flomax) 0.4 mg DAILY PO Last administered on 07/05/17 08:30; Start 07/02/17 at 09:00 Calcium Acetate (Phoslo) 667 mg TIDWMEALS PO Last administered on 07/05/17 11 :54; Start 07/02/17 at 12:00 Calcium Carbonate/ Glycine (Tums) 500 mg TIDWMEALS PO Last administered on 11:55; Start 07/02/17 at 12:00 Carvedilol (Coreg) 25 mg BIDWMEALS PO Last administered on 07/05/17 08:29; Start 07/02/17 at 17:00 Insulin Detemir (Levemir) 20 units QHS SQ Last administered on 07/04/17 21:07 ; Start 07/02/17 at 21:00 Potassium Chloride (Klor-Con) 20 meq BIDWMEALS PO Last administered on 09:14; Start 07/02/17 at 10:00; Stop 07/03/17 at 10:02; Status DC Atorvastatin Calcium (Lipitor) 5 mg QHS PO Last administered on 07/04/17 20: 52; Start 07/02/17 at 21:00 Non-Formulary Medication 400 mg BID PO ; Start 07/02/17 at 09:00; Stop 07/02/17 at 10:20; Status DC Zolpidem Tartrate (Ambien) 5 mg PRN QHS PRN PO INSOMNIA; Start 07/02/17 at 10: 15 Insulin Aspart (NovoLOG) 0-5 UNITS TIDWMEALS SQ Last administered on 07/02/17 17:22; Start 07/02/17 at 12:00; Stop 07/03/17 at 08:59; Status DC Dextrose (Dextrose 50%-Water Syringe) 12.5 gm PRN Q15MIN PRN IV SEE COMMENTS; Start 07/02/17 at 08:30; Stop 07/03/17 at 14:12; Status DC Clindamycin Phosphate 50 ml @ 100 mls/hr 1X ONCE IV ; Start 07/02/17 at 08:45 ; Stop 07/02/17 at 09:03; Status DC Propofol 20 ml @ As Directed STK-MED ONCE IV ; Start 07/02/17 at 08:44; Stop at 08:45; Status DC Lidocaine HCl (Lidocaine Pf 2% Vial) 5 ml STK-MED ONCE .ROUTE ; Start 07/02/17 at 08:44; Stop 07/02/17 at 08:45; Status DC Midazolam HCl (Versed) 2 mg STK-MED ONCE .ROUTE ; Start 07/02/17 at 08:45; Stop 07/02/17 at 08:46; Status DC Ephedrine Sulfate (Akovaz) 50 mg STK-MED ONCE .ROUTE ; Start 07/02/17 at 09:28; Stop 07/02/17 at 09:29; Status DC Phenylephrine HCl (Krunal-Synephrine Inj) 10 mg STK-MED ONCE .ROUTE ; Start at 09:37; Stop 07/02/17 at 09:38; Status DC Dexamethasone Sodium Phosphate (Decadron) 20 mg STK-MED ONCE .ROUTE ; Start 07/02/17 at 09:37; Stop 07/02/17 at 09:38; Status DC Ondansetron HCl (Zofran) 4 mg STK-MED ONCE .ROUTE ; Start 07/02/17 at 09:37; Stop 07/02/17 at 09:38; Status DC Sevoflurane (Ultane) 15 ml STK-MED ONCE IH ; Start 07/02/17 at 09:53; Stop 07/02 at 09:54; Status DC Zolpidem Tartrate (Ambien) 5 mg QHS PO Last administered on 07/04/17t 20:53; Start 07/02/17 at 21:00 Acetaminophen (Tylenol) 650 mg PRN Q6HRS PRN PO FEVER Last administered on 07/02t 23:18; Start 07/02/17 at 15:45 Ondansetron HCl (Zofran) 4 mg PRN Q6HRS PRN IV NAUSEA/VOMITING; Start 07/02/17 at 15:45 Morphine Sulfate 2 mg PRN Q2HR PRN IV PAIN; Start 07/02/17 at 15:45 Tramadol HCl (Ultram) 50 mg PRN Q6HRS PRN PO PAIN; Start 07/02/17 at 15:45 Hydralazine HCl (Apresoline Inj) 10 mg PRN Q4HRS PRN IVP ELEVATED BP, SEE COMMENTS; Start 07/02/17 at 15:45 Docusate Sodium (Colace) 100 mg PRN DAILY PRN PO CONSTIPATION; Start 07/02/17 at 15:45 Insulin Aspart (NovoLOG) 0-9 UNITS TIDWMEALS SQ Last administered on 12:01; Start 07/03/17 at 12:00 Dextrose (Dextrose 50%-Water Syringe) 12.5 gm PRN Q15MIN PRN IV SEE COMMENTS; Start 07/03/17 at 09:00 Magnesium Sulfate/ Dextrose 50 ml @ 25 mls/hr PRN DAILY PRN IV for Mag < 1.7 on am labs; Start 07/03/17 at 09:15 Clindamycin Phosphate (Cleocin 900mg Premix) 900 mg STK-MED ONCE IV ; Start 07/02/17 at 08:00; Stop 07/03/17 at 09:11; Status DC Insulin Aspart (NovoLOG) 5 units 1X ONCE SQ Last administered on 07/03/17 09: 46; Start 07/03/17 at 09:30; Stop 07/03/17 at 09:31; Status DC Potassium Chloride (Klor-Con) 20 meq BIDWMEALS PO Last administered on 16:25; Start 07/03/17 at 17:00 Ciprofloxacin/ Dextrose 200 ml @ 200 mls/hr DAILY IV ; Start 07/03/17 at 14:00 ; Stop 07/03/17 at 14:38; Status DC Ciprofloxacin/ Dextrose 200 ml @ 200 mls/hr Q18H IV ; Start 07/04/17 at 09:00 ; Stop 07/04/17 at 11:51; Status DC Ciprofloxacin/ Dextrose 200 ml @ 200 mls/hr 1X ONCE IV Last administered on 07/03/17 16:24; Start 07/03/17 at 15:30; Stop 07/04/17 at 11:51; Status DC Magnesium Sulfate/ Dextrose 50 ml @ 25 mls/hr 1X ONCE IV Last administered on 11/10/17at 11:41; Start 07/04/17 at 10:30; Stop 07/04/17 at 12:29; Status DC Ertapenem 0.5 gm/ Sodium Chloride 50 ml @ 100 mls/hr DAILY08 IV ; Start at 08:00; Status UNV Meropenem (Merrem) 500 mg Q24H IVP Last administered on 07/05/17 13:27; Start 07/04/17 at 13:00 Darbepoetin Fredi (Aranesp) 100 mcg QSA@2100 SQ ; Start 07/05/17 at 21:00 Active Scripts Active Reported Carvedilol 25 Mg Tablet 1 Tab PO BID Coq-10 (Ubidecarenone) 100 Mg Capsule 400 Mg PO BID Krill Oil 500 mg Softgel (Krill/Om-3/Dha/Epa/Phospho/Ast) 1 Each Capsule 1 Each PO DAILY Vitamin D3 (Cholecalciferol (Vitamin D3)) 1,000 Unit Tablet 1 Tab PO DAILY Potassium Chloride 20 Meq Tablet.er 20 Meq PO BID Metoprolol Succinate ( Xl ) (Metoprolol Succinate) 25 Mg Tab.er.24h 1 Tab PO DAILY Calcium Acetate 667 Mg Tablet 1,334 Mg PO TIDWMEALS Ambien (Zolpidem Tartrate) 10 Mg Tablet 1 Tab PO QHS Humalog (Insulin Lispro) 100 Unit/1 Ml Cartridge 0 SQ Doxazosin Mesylate 4 Mg Tablet 4 Mg PO HS Nephro-Harsha Tablet (Folic Acid/Vitamin B Comp W-C) 0.8 Mg Tablet 1 Tab PO DAILY Aspir 81 (Aspirin) 81 Mg Tablet.dr 1 Tab PO DAILY Furosemide 80 Mg Tablet 80 Mg PO BID Sodium Bicarbonate 650 Mg Tablet 1 Tab PO TIDAC Artificial Tears Eye Drops (Dextran 70/Hypromellose) 15 Ml Drops 1 Drop EACHEYE BID Pravastatin Sodium 10 Mg Tablet 1 Tab PO QHS Tamsulosin Hcl 0.4 Mg Cap.er.24h 1 Cap PO DAILY Docusate Sodium 100 Mg Capsule 200 Mg PO DAILY Aranesp Syringe (Darbepoetin Fredi In Polysorbat) 60 Mcg/0.3 Ml Disp.syrin 60 Mcg SQ WEEKLY Ferrous Sulfate 325 Mg Tablet 1 Tab PO DAILY Duoneb 0.5-3(2.5) Mg/3 Ml (Albuterol/Ipratropium) 3 Ml Ampul.neb 3 Ml NEB TID Tums Ultra (Calcium Carbonate) 400 Mg Tab.chew 500 Mg PO TID Allopurinol 100 Mg Tablet 1 Tab PO DAILY Clonidine Hcl 0.2 Mg Tablet 1 Tab PO PRN TAKES ONLY IF HIS BLOOD PRESSURE IS ELEVATED Lisinopril 5 Mg Tablet 1 Tab PO HS Levemir (Insulin Detemir) 100 Unit/1 Ml Vial 20 Unit SQ HS Vitals/I & O Vital Sign - Last 24 Hours 07/04/17 07/04/17 07/04/17 07/04/17 17:07 20:00 20:34 20:53 Pulse 75 75 B/P (MAP) 142/74 142/74 O2 Delivery Room Air BiPAP/CPAP O2 Flow Rate 3.0 07/04/17 07/04/17 07/04/17 07/05/17 20:54 20:54 23:00 03:00 Temp 97.5 97.7 97.5 97.7 Pulse 75 75 78 65 Resp 20 18 B/P (MAP) 142/74 142/74 120/31 (60) 123/55 (77) Pulse Ox 93 99 07/05/17 07/05/17 07/05/17 07/05/17 07:00 07:16 07:25 08:00 Temp 97.5 97.5 Pulse 76 Resp 20 B/P (MAP) 138/66 (90) Pulse Ox 100 100 O2 Delivery Room Air Room Air Room Air Room Air 07/05/17 07/05/17 07/05/17 07/05/17 08:29 08:30 08:31 09:15 Temp 97.5 97.5 Pulse 76 76 76 76 Resp 20 B/P (MAP) 138/66 138/66 138/66 138/66 (90) Pulse Ox 100 O2 Delivery Room Air 07/05/17 07/05/17 07/05/17 11:00 12:00 12:33 Temp 97.9 97.9 97.9 97.9 Pulse 78 78 Resp 18 B/P (MAP) 155/57 (89) 155/57 (89) Pulse Ox 95 O2 Delivery Room Air Room Air Room Air QUINTON RIVERA MD Jul 05, 2017 14:59
[2017-07-05] MEDS ORDERED: DARBEPOETIN ALFA 60 MCG/0.3 ML DISP.SYRIN. SQ SCH (21:00)
[2017-07-05] MEDS: ZOLPIDEM 5 MG TABLET. PO SCH (22:10)
[2017-07-05] MEDS: DOXAZOSIN MESYLATE 4 MG TABLET. PO SCH (22:10)
[2017-07-05] MEDS: LISINOPRIL 5 MG TABLET. PO SCH (22:11)
[2017-07-05] MEDS: ATORVASTATIN CALCIUM 10 MG TABLET. PO SCH (22:11)
[2017-07-05] MEDS: DARBEPOETIN ALFA 100 MCG/0.5 ML DISP.SYRIN. SQ SCH (22:15)
[2017-07-05] MEDS: INSULIN DETEMIR 300 UNITS/3 ML INSULN.PEN. SQ SCH (22:17)
[2017-07-06] VITALS (7 sets, daily range): BP systolic 123–189; BP diastolic 45–85
[2017-07-06 06:53] LABS: BASO % 1 % (0-3); EOS % 3 % (0-3); HEMATOCRIT 24.1 % (39.0-53.0); LYMPH # 0.2 x10^3/uL (1.0-4.8); LYMPH % 3 % (24-48); MEAN CORPUSCULAR HEMOGLOBIN 32 pg (25-35); MEAN CORPUSCULAR HGB CONC 33 g/dL (31-37); MEAN CORPUSCULAR VOLUME 97 fL (79-100); MONO % 5 % (0-9); NEUT % 89 % (31-73); PLATELET COUNT 100 x10^3/uL (140-400); RED BLOOD COUNT 2.49 x10^6/uL (4.30-5.70); WHITE BLOOD COUNT 7.3 x10^3/uL (4.0-11.0)
[2017-07-06] MEDS: IPRATRPIUM/ALBUTEROL 0.5/2.5MG 3 ML NEBU. NEB SCH ×3 (07:05→20:15)
[2017-07-06] MEDS: INSULIN ASPART 300 UNITS/3 ML INSULN.PEN SQ SCH ×3 (08:00→17:30)
[2017-07-06 08:04] LABS: ALBUMIN 2.1 g/dL (3.4-5.0); PHOSPHORUS 4.5 mg/dL (2.6-4.7)
[2017-07-06 08:09] LABS: CALCIUM 8.3 mg/dL (8.5-10.1); CREATININE 6.6 mg/dL (0.7-1.3); GFR 8.6
--- NOTE | 2017-07-06 08:11 | PDOC ---
ORTHO PROGRESS NOTES Subjective Resting comfortably. No complaints Vitals Vital Signs Date Time Temp Pulse Resp B/P (MAP) Pulse Ox O2 Delivery O2 Flow Rate FiO2 07/06/17 07:06 96 Room Air 07/06/17 03:00 97.9 84 18 151/49 (83) 97.9 Labs Laboratory Tests Test 07/04/17 09:20 07/04/17 10:40 07/04/17 12:02 07/04/17 17:04 Nasal Screen MRSA (PCR) Negative (Negative) Erythrocyte Sedimentation Rate 65 (0-15) Glucose (Fingerstick) 219 mg/dL (70-99) 213 mg/dL (70-99) Test 07/04/17 21:00 07/05/17 05:30 07/05/17 07:49 07/05/17 11:16 Glucose (Fingerstick) 166 mg/dL (70-99) 89 mg/dL (70-99) 154 mg/dL (70-99) White Blood Count 6.4 x10^3/uL (4.0-11.0) Red Blood Count 2.50 x10^6/uL (4.30-5.70) Hemoglobin 7.9 g/dL (13.0-17.5) Hematocrit 24.2 % (39.0-53.0) Mean Corpuscular Volume 97 fL (79-100) Mean Corpuscular Hemoglobin 32 pg (25-35) Mean Corpuscular Hemoglobin Concent 33 g/dL (31-37) Red Cell Distribution Width 18.4 % (11.5-14.5) Platelet Count 102 x10^3/uL (140-400) Neutrophils (%) (Auto) 86 % (31-73) Lymphocytes (%) (Auto) 4 % (24-48) Monocytes (%) (Auto) 5 % (0-9) Eosinophils (%) (Auto) 4 % (0-3) Basophils (%) (Auto) 1 % (0-3) Neutrophils # (Auto) 5.5 x10^3uL (1.8-7.7) Lymphocytes # (Auto) 0.3 x10^3/uL (1.0-4.8) Monocytes # (Auto) 0.3 x10^3/uL (0.0-1.1) Eosinophils # (Auto) 0.2 x10^3/uL (0.0-0.7) Basophils # (Auto) 0.1 x10^3/uL (0.0-0.2) Sodium Level 137 mmol/L (136-145) Potassium Level 4.5 mmol/L (3.5-5.1) Chloride Level 100 mmol/L (98-107) Carbon Dioxide Level 28 mmol/L (21-32) Anion Gap 9 (6-14) Blood Urea Nitrogen 78 mg/dL (8-26) Creatinine 6.7 mg/dL (0.7-1.3) Estimated GFR (Cockcroft-Gault) 8.4 Glucose Level 106 mg/dL (70-99) Calcium Level 8.8 mg/dL (8.5-10.1) Phosphorus Level 4.5 mg/dL (2.6-4.7) Magnesium Level 2.1 mg/dL (1.8-2.4) Albumin 2.1 g/dL (3.4-5.0) Test 07/05/17 16:29 07/05/17 20:40 07/06/17 06:30 Glucose (Fingerstick) 203 mg/dL (70-99) 151 mg/dL (70-99) White Blood Count 7.3 x10^3/uL (4.0-11.0) Red Blood Count 2.49 x10^6/uL (4.30-5.70) Hemoglobin 8.0 g/dL (13.0-17.5) Hematocrit 24.1 % (39.0-53.0) Mean Corpuscular Volume 97 fL (79-100) Mean Corpuscular Hemoglobin 32 pg (25-35) Mean Corpuscular Hemoglobin Concent 33 g/dL (31-37) Red Cell Distribution Width 18.0 % (11.5-14.5) Platelet Count 100 x10^3/uL (140-400) Neutrophils (%) (Auto) 89 % (31-73) Lymphocytes (%) (Auto) 3 % (24-48) Monocytes (%) (Auto) 5 % (0-9) Eosinophils (%) (Auto) 3 % (0-3) Basophils (%) (Auto) 1 % (0-3) Neutrophils # (Auto) 6.5 x10^3uL (1.8-7.7) Lymphocytes # (Auto) 0.2 x10^3/uL (1.0-4.8) Monocytes # (Auto) 0.3 x10^3/uL (0.0-1.1) Eosinophils # (Auto) 0.2 x10^3/uL (0.0-0.7) Basophils # (Auto) 0.0 x10^3/uL (0.0-0.2) Sodium Level 138 mmol/L (136-145) Potassium Level 4.0 mmol/L (3.5-5.1) Chloride Level 100 mmol/L (98-107) Carbon Dioxide Level 30 mmol/L (21-32) Anion Gap 8 (6-14) Blood Urea Nitrogen 76 mg/dL (8-26) Creatinine 6.6 mg/dL (0.7-1.3) Estimated GFR (Cockcroft-Gault) 8.6 Glucose Level 143 mg/dL (70-99) Calcium Level 8.3 mg/dL (8.5-10.1) Phosphorus Level 4.5 mg/dL (2.6-4.7) Magnesium Level 1.8 mg/dL (1.8-2.4) Albumin 2.1 g/dL (3.4-5.0) Laboratory Tests Test 07/05/17 11:16 07/05/17 16:29 07/05/17 20:40 07/06/17 06:30 Glucose (Fingerstick) 154 mg/dL (70-99) 203 mg/dL (70-99) 151 mg/dL (70-99) White Blood Count 7.3 x10^3/uL (4.0-11.0) Red Blood Count 2.49 x10^6/uL (4.30-5.70) Hemoglobin 8.0 g/dL (13.0-17.5) Hematocrit 24.1 % (39.0-53.0) Mean Corpuscular Volume 97 fL (79-100) Mean Corpuscular Hemoglobin 32 pg (25-35) Mean Corpuscular Hemoglobin Concent 33 g/dL (31-37) Red Cell Distribution Width 18.0 % (11.5-14.5) Platelet Count 100 x10^3/uL (140-400) Neutrophils (%) (Auto) 89 % (31-73) Lymphocytes (%) (Auto) 3 % (24-48) Monocytes (%) (Auto) 5 % (0-9) Eosinophils (%) (Auto) 3 % (0-3) Basophils (%) (Auto) 1 % (0-3) Neutrophils # (Auto) 6.5 x10^3uL (1.8-7.7) Lymphocytes # (Auto) 0.2 x10^3/uL (1.0-4.8) Monocytes # (Auto) 0.3 x10^3/uL (0.0-1.1) Eosinophils # (Auto) 0.2 x10^3/uL (0.0-0.7) Basophils # (Auto) 0.0 x10^3/uL (0.0-0.2) Sodium Level 138 mmol/L (136-145) Potassium Level 4.0 mmol/L (3.5-5.1) Chloride Level 100 mmol/L (98-107) Carbon Dioxide Level 30 mmol/L (21-32) Anion Gap 8 (6-14) Blood Urea Nitrogen 76 mg/dL (8-26) Creatinine 6.6 mg/dL (0.7-1.3) Estimated GFR (Cockcroft-Gault) 8.6 Glucose Level 143 mg/dL (70-99) Calcium Level 8.3 mg/dL (8.5-10.1) Phosphorus Level 4.5 mg/dL (2.6-4.7) Magnesium Level 1.8 mg/dL (1.8-2.4) Albumin 2.1 g/dL (3.4-5.0) Notes Resting, easily awakens LLE: VAC in place with good seal no new wounds Assessment and Plan awaiting placement cont current mgmt JOSELITO PONCE II, MD Jul 06, 2017 08:11
[2017-07-06] MEDS: SENNOSIDES/DOCUSATE 8.6/50MG TABLET. PO SCH ×3 (09:00→22:26)
[2017-07-06] MEDS: DOCUSATE SODIUM 100 MG CAPSULE. PO SCH ×2 (09:00→09:03)
[2017-07-06] MEDS: CALCIUM ACETATE 667 MG CAPSULE PO SCH ×3 (09:01→17:00)
[2017-07-06] MEDS: FOLIC/VIT B COMP W-C (RENAL) TABLET. PO SCH (09:02)
[2017-07-06] MEDS: POTASSIUM CHLORIDE 20 MEQ TABLET.ER. PO SCH ×2 (09:02→17:22)
[2017-07-06] MEDS: TAMSULOSIN 0.4 MG CAP.ER.24H. PO SCH (09:02)
[2017-07-06] MEDS: SODIUM BICARBONATE 650 MG TABLET. PO SCH ×3 (09:02→16:30)
[2017-07-06] MEDS: FUROSEMIDE 80 MG TABLET. PO SCH ×2 (09:03→13:46)
[2017-07-06] MEDS: CALCIUM CARBONATE 500 MG TAB.CHEW PO SCH ×3 (09:03→17:00)
[2017-07-06] MEDS: ALLOPURINOL 100 MG TABLET. PO SCH (09:03)
[2017-07-06] MEDS: CHOLECALCIFEROL (VITAMIN D3) 1,000 UNIT TABLET PO SCH (09:03)
[2017-07-06] MEDS: CARVEDILOL 12.5 MG TABLET. PO SCH ×2 (09:03→17:26)
[2017-07-06] MEDS: FERROUS SULFATE 325 MG TABLET. PO SCH (09:04)
[2017-07-06] MEDS: METOPROLOL SUCC 24HR ER 25 MG TAB.ER.24H. PO SCH (09:04)
[2017-07-06] MEDS: ASPIRIN ENTERIC COATED 81 MG TABLET.DR. PO SCH (09:04)
[2017-07-06] MEDS: cloNIDine HCL 0.2 MG TABLET PO SCH ×2 (09:05→22:25)
--- NOTE | 2017-07-06 12:43 | PDOC ---
Infectious Disease Note Subjective Subjective Comfortable, denies pain ROS ROS GEN: Denies fevers, chills, sweats CV: Denies chest pain RESP: Denies shortness of air, cough GI: Denies n/v/d Vital Sign Vital Signs Vital Signs Date Time Temp Pulse Resp B/P (MAP) Pulse Ox O2 Delivery O2 Flow Rate FiO2 07/06/17 09:07 97.9 78 189/76 (113) Room Air 97.9 07/06/17 07:06 96 07/06/17 07:00 20 Physical Exam PHYSICAL EXAM GENERAL: Lying down, NAD HEENT: OC/OP pink LUNGS: Clear HEART: S1S2, + murmur ABD: Soft, NT, BS active, PDC EXT: No edema, no cyanosis; LUE AV fistula. Left foot wound vac in place - no area redness DIRECTIONAL DRILLER: Alert, responds appropriately SKIN: No rash RUE-PICC Labs Lab Laboratory Tests Test 07/05/17 16:29 07/05/17 20:40 07/06/17 06:30 07/06/17 08:29 Glucose (Fingerstick) 203 mg/dL (70-99) 151 mg/dL (70-99) 131 mg/dL (70-99) White Blood Count 7.3 x10^3/uL (4.0-11.0) Red Blood Count 2.49 x10^6/uL (4.30-5.70) Hemoglobin 8.0 g/dL (13.0-17.5) Hematocrit 24.1 % (39.0-53.0) Mean Corpuscular Volume 97 fL (79-100) Mean Corpuscular Hemoglobin 32 pg (25-35) Mean Corpuscular Hemoglobin Concent 33 g/dL (31-37) Red Cell Distribution Width 18.0 % (11.5-14.5) Platelet Count 100 x10^3/uL (140-400) Neutrophils (%) (Auto) 89 % (31-73) Lymphocytes (%) (Auto) 3 % (24-48) Monocytes (%) (Auto) 5 % (0-9) Eosinophils (%) (Auto) 3 % (0-3) Basophils (%) (Auto) 1 % (0-3) Neutrophils # (Auto) 6.5 x10^3uL (1.8-7.7) Lymphocytes # (Auto) 0.2 x10^3/uL (1.0-4.8) Monocytes # (Auto) 0.3 x10^3/uL (0.0-1.1) Eosinophils # (Auto) 0.2 x10^3/uL (0.0-0.7) Basophils # (Auto) 0.0 x10^3/uL (0.0-0.2) Sodium Level 138 mmol/L (136-145) Potassium Level 4.0 mmol/L (3.5-5.1) Chloride Level 100 mmol/L (98-107) Carbon Dioxide Level 30 mmol/L (21-32) Anion Gap 8 (6-14) Blood Urea Nitrogen 76 mg/dL (8-26) Creatinine 6.6 mg/dL (0.7-1.3) Estimated GFR (Cockcroft-Gault) 8.6 Glucose Level 143 mg/dL (70-99) Calcium Level 8.3 mg/dL (8.5-10.1) Phosphorus Level 4.5 mg/dL (2.6-4.7) Magnesium Level 1.8 mg/dL (1.8-2.4) Albumin 2.1 g/dL (3.4-5.0) Micro ANAEROBIC RES 1 Preliminary No anaerobes recovered in 48 hours. 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 Lee. ESBL/MDR Klebsiella (S carbapenems & levofloxacin; I cipro otherwise resistant) End-stage renal disease, on peritoneal dialysis. Diabetes mellitus 2 with neuropathy. Coronary artery disease. 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 Acute on chronic anemia. History of recurrent gastrointestinal bleed. History of gastric ulcer, status post clip and epinephrine injection. History of chronic thrombocytopenia. PENICILLIN ALLERGY, has had amoxicillin and Zosyn in the past, tolerated it well. Plan Plan of Care Continue renally dosed Meropenem -wound care -weekly labs cbc, cmp and ESR while on antibiotics -optimal DM control -maintain isolation D/w Attending Co-Sign The patient was seen and interviewed as well as examined at the bedside. The chart was reviewed. The case was discussed. Agree with the plan of care. JOSE LIRIANO APRN Jul 06, 2017 12:43 SREEKANTH HART MD Jul 06, 2017 15:09
[2017-07-06] MEDS: MEROPENEM IV Push 500 MG VIAL. IVP SCH (13:46)
--- NOTE | 2017-07-06 14:37 | PDOC ---
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 DM2 ON insulin dysphagia resolved morbid obesity, BMI 32.5 acute on chronic anemia, esrd, gib h/o thrombocytopenia moderate malnutrition History of Present Illness History of Present Illness Pt is a pleasant 61 year old male who presents with a klebsiella wound infection of the left foot. He is on meropenem for abx. He is currently on wound vac. Pt is also on dialysis and has a PICC line. Pt was seen at bedside resting comfortably in NAD. Pt is being followed by orthopedics, nephrology, and ID. Will continue abx, wound care, and dialysis. Will continue to monitor. Vitals Vitals Vital Signs Date Time Temp Pulse Resp B/P (MAP) Pulse Ox O2 Delivery O2 Flow Rate FiO2 07/06/17 13:19 Room Air 07/06/17 09:07 97.9 78 189/76 (113) 97.9 07/06/17 07:06 96 07/06/17 07:00 20 Physical Exam General: Alert, Oriented X3, Cooperative, No acute distress Heart: Regular rate, Normal S1, Normal S2, No murmurs, Gallops Lungs: Clear Abdomen: Normal bowel sounds, Soft, No tenderness, No hepatosplenomegaly, No masses Extremities: No clubbing, No cyanosis, No edema, Normal pulses, No tenderness/ swelling Skin: Other (left foot post sx, wound vac on) Labs LABS Laboratory Tests Test 07/05/17 16:29 07/05/17 20:40 07/06/17 06:30 07/06/17 08:29 Glucose (Fingerstick) 203 mg/dL (70-99) 151 mg/dL (70-99) 131 mg/dL (70-99) White Blood Count 7.3 x10^3/uL (4.0-11.0) Red Blood Count 2.49 x10^6/uL (4.30-5.70) Hemoglobin 8.0 g/dL (13.0-17.5) Hematocrit 24.1 % (39.0-53.0) Mean Corpuscular Volume 97 fL (79-100) Mean Corpuscular Hemoglobin 32 pg (25-35) Mean Corpuscular Hemoglobin Concent 33 g/dL (31-37) Red Cell Distribution Width 18.0 % (11.5-14.5) Platelet Count 100 x10^3/uL (140-400) Neutrophils (%) (Auto) 89 % (31-73) Lymphocytes (%) (Auto) 3 % (24-48) Monocytes (%) (Auto) 5 % (0-9) Eosinophils (%) (Auto) 3 % (0-3) Basophils (%) (Auto) 1 % (0-3) Neutrophils # (Auto) 6.5 x10^3uL (1.8-7.7) Lymphocytes # (Auto) 0.2 x10^3/uL (1.0-4.8) Monocytes # (Auto) 0.3 x10^3/uL (0.0-1.1) Eosinophils # (Auto) 0.2 x10^3/uL (0.0-0.7) Basophils # (Auto) 0.0 x10^3/uL (0.0-0.2) Sodium Level 138 mmol/L (136-145) Potassium Level 4.0 mmol/L (3.5-5.1) Chloride Level 100 mmol/L (98-107) Carbon Dioxide Level 30 mmol/L (21-32) Anion Gap 8 (6-14) Blood Urea Nitrogen 76 mg/dL (8-26) Creatinine 6.6 mg/dL (0.7-1.3) Estimated GFR (Cockcroft-Gault) 8.6 Glucose Level 143 mg/dL (70-99) Calcium Level 8.3 mg/dL (8.5-10.1) Phosphorus Level 4.5 mg/dL (2.6-4.7) Magnesium Level 1.8 mg/dL (1.8-2.4) Albumin 2.1 g/dL (3.4-5.0) Test 07/06/17 12:22 Glucose (Fingerstick) 221 mg/dL (70-99) Review of Systems Review of Systems Pt complains of fatigue and hunger Assessment and Plan Assessmemt and Plan Assessment: Klebsiella wound, left foot left foot midfoot amputation with wound dehiscence post i and d on 07/02 recent Left foot gangree,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 recent left toes osteo post toes amputation with wound dehiscence recent Recurrent UGIB, s/p EGD, with gastric ulcer post clip and epi injection recent acute on chronic resp failure, post intubation, trach removed ESRD previous on PD,on short term of HD, back to PD now recent CAD with 3rd degree AVB with PPM DM2 ON insulin dysphagia resolved morbid obesity, BMI 32.5 acute on chronic anemia, esrd, gib h/o thrombocytopenia moderate malnutrition Plan: Continue wound vac Continue abx- meropenem Continue dialysis Continue home meds PT/OT Appreciate subspecialty input Will continue to monitor Problems: Comment Review of Relevant I have reviewed the following items den (where applicable) has been applied. Labs Laboratory Tests Test 07/04/17 17:04 07/04/17 21:00 07/05/17 05:30 07/05/17 07:49 Glucose (Fingerstick) 213 mg/dL (70-99) 166 mg/dL (70-99) 89 mg/dL (70-99) White Blood Count 6.4 x10^3/uL (4.0-11.0) Red Blood Count 2.50 x10^6/uL (4.30-5.70) Hemoglobin 7.9 g/dL (13.0-17.5) Hematocrit 24.2 % (39.0-53.0) Mean Corpuscular Volume 97 fL (79-100) Mean Corpuscular Hemoglobin 32 pg (25-35) Mean Corpuscular Hemoglobin Concent 33 g/dL (31-37) Red Cell Distribution Width 18.4 % (11.5-14.5) Platelet Count 102 x10^3/uL (140-400) Neutrophils (%) (Auto) 86 % (31-73) Lymphocytes (%) (Auto) 4 % (24-48) Monocytes (%) (Auto) 5 % (0-9) Eosinophils (%) (Auto) 4 % (0-3) Basophils (%) (Auto) 1 % (0-3) Neutrophils # (Auto) 5.5 x10^3uL (1.8-7.7) Lymphocytes # (Auto) 0.3 x10^3/uL (1.0-4.8) Monocytes # (Auto) 0.3 x10^3/uL (0.0-1.1) Eosinophils # (Auto) 0.2 x10^3/uL (0.0-0.7) Basophils # (Auto) 0.1 x10^3/uL (0.0-0.2) Sodium Level 137 mmol/L (136-145) Potassium Level 4.5 mmol/L (3.5-5.1) Chloride Level 100 mmol/L (98-107) Carbon Dioxide Level 28 mmol/L (21-32) Anion Gap 9 (6-14) Blood Urea Nitrogen 78 mg/dL (8-26) Creatinine 6.7 mg/dL (0.7-1.3) Estimated GFR (Cockcroft-Gault) 8.4 Glucose Level 106 mg/dL (70-99) Calcium Level 8.8 mg/dL (8.5-10.1) Phosphorus Level 4.5 mg/dL (2.6-4.7) Magnesium Level 2.1 mg/dL (1.8-2.4) Albumin 2.1 g/dL (3.4-5.0) Test 07/05/17 11:16 07/05/17 16:29 07/05/17 20:40 07/06/17 06:30 Glucose (Fingerstick) 154 mg/dL (70-99) 203 mg/dL (70-99) 151 mg/dL (70-99) White Blood Count 7.3 x10^3/uL (4.0-11.0) Red Blood Count 2.49 x10^6/uL (4.30-5.70) Hemoglobin 8.0 g/dL (13.0-17.5) Hematocrit 24.1 % (39.0-53.0) Mean Corpuscular Volume 97 fL (79-100) Mean Corpuscular Hemoglobin 32 pg (25-35) Mean Corpuscular Hemoglobin Concent 33 g/dL (31-37) Red Cell Distribution Width 18.0 % (11.5-14.5) Platelet Count 100 x10^3/uL (140-400) Neutrophils (%) (Auto) 89 % (31-73) Lymphocytes (%) (Auto) 3 % (24-48) Monocytes (%) (Auto) 5 % (0-9) Eosinophils (%) (Auto) 3 % (0-3) Basophils (%) (Auto) 1 % (0-3) Neutrophils # (Auto) 6.5 x10^3uL (1.8-7.7) Lymphocytes # (Auto) 0.2 x10^3/uL (1.0-4.8) Monocytes # (Auto) 0.3 x10^3/uL (0.0-1.1) Eosinophils # (Auto) 0.2 x10^3/uL (0.0-0.7) Basophils # (Auto) 0.0 x10^3/uL (0.0-0.2) Sodium Level 138 mmol/L (136-145) Potassium Level 4.0 mmol/L (3.5-5.1) Chloride Level 100 mmol/L (98-107) Carbon Dioxide Level 30 mmol/L (21-32) Anion Gap 8 (6-14) Blood Urea Nitrogen 76 mg/dL (8-26) Creatinine 6.6 mg/dL (0.7-1.3) Estimated GFR (Cockcroft-Gault) 8.6 Glucose Level 143 mg/dL (70-99) Calcium Level 8.3 mg/dL (8.5-10.1) Phosphorus Level 4.5 mg/dL (2.6-4.7) Magnesium Level 1.8 mg/dL (1.8-2.4) Albumin 2.1 g/dL (3.4-5.0) Test 07/06/17 08:29 07/06/17 12:22 Glucose (Fingerstick) 131 mg/dL (70-99) 221 mg/dL (70-99) Laboratory Tests Test 07/05/17 16:29 07/05/17 20:40 07/06/17 06:30 07/06/17 08:29 Glucose (Fingerstick) 203 mg/dL (70-99) 151 mg/dL (70-99) 131 mg/dL (70-99) White Blood Count 7.3 x10^3/uL (4.0-11.0) Red Blood Count 2.49 x10^6/uL (4.30-5.70) Hemoglobin 8.0 g/dL (13.0-17.5) Hematocrit 24.1 % (39.0-53.0) Mean Corpuscular Volume 97 fL (79-100) Mean Corpuscular Hemoglobin 32 pg (25-35) Mean Corpuscular Hemoglobin Concent 33 g/dL (31-37) Red Cell Distribution Width 18.0 % (11.5-14.5) Platelet Count 100 x10^3/uL (140-400) Neutrophils (%) (Auto) 89 % (31-73) Lymphocytes (%) (Auto) 3 % (24-48) Monocytes (%) (Auto) 5 % (0-9) Eosinophils (%) (Auto) 3 % (0-3) Basophils (%) (Auto) 1 % (0-3) Neutrophils # (Auto) 6.5 x10^3uL (1.8-7.7) Lymphocytes # (Auto) 0.2 x10^3/uL (1.0-4.8) Monocytes # (Auto) 0.3 x10^3/uL (0.0-1.1) Eosinophils # (Auto) 0.2 x10^3/uL (0.0-0.7) Basophils # (Auto) 0.0 x10^3/uL (0.0-0.2) Sodium Level 138 mmol/L (136-145) Potassium Level 4.0 mmol/L (3.5-5.1) Chloride Level 100 mmol/L (98-107) Carbon Dioxide Level 30 mmol/L (21-32) Anion Gap 8 (6-14) Blood Urea Nitrogen 76 mg/dL (8-26) Creatinine 6.6 mg/dL (0.7-1.3) Estimated GFR (Cockcroft-Gault) 8.6 Glucose Level 143 mg/dL (70-99) Calcium Level 8.3 mg/dL (8.5-10.1) Phosphorus Level 4.5 mg/dL (2.6-4.7) Magnesium Level 1.8 mg/dL (1.8-2.4) Albumin 2.1 g/dL (3.4-5.0) Test 07/06/17 12:22 Glucose (Fingerstick) 221 mg/dL (70-99) Microbiology 07/02/17 Anaerobic/Aerobic Culture - Preliminary, Resulted 07/02/17 Anaerobic Culture Result 1 (BELKIS) - Preliminary, Resulted 07/02/17 Aerobic Culture - Final, Resulted 07/02/17 Aerobic Culture Result 1 (BELKIS) - Final, Resulted Medications Current Medications Ondansetron HCl (Zofran) 4 mg PRN Q6HRS PRN IV NAUSEA/VOMITING; Start 07/02/17 at 07:00; Stop 07/03/17 at 06:59; Status DC Fentanyl Citrate (Fentanyl 2ml Vial) 25 mcg PRN Q5MIN PRN IV MILD PAIN; Start 07/02/17 at 07:00; Stop 07/03/17 at 06:59; Status DC Fentanyl Citrate (Fentanyl 2ml Vial) 50 mcg PRN Q5MIN PRN IV MODERATE PAIN; Start 07/02/17 at 07:00; Stop 07/03/17 at 06:59; Status DC Morphine Sulfate 1 mg PRN Q10MIN PRN IV SEVERE PAIN; Start 07/02/17 at 07:00; Stop 07/03/17 at 06:59; Status DC Ringer's Solution 1,000 ml @ 30 mls/hr Q24H IV ; Start 07/02/17 at 07:00; Stop 07/02/17 at 18:59; Status DC Lidocaine HCl (Xylocaine-Mpf 1% Vial) 2 ml PRN 1X PRN ID IV START; Start at 07:00; Stop 07/03/17 at 06:59; Status DC Hydromorphone HCl (Dilaudid) 0.5 mg PRN Q10MIN PRN IV SEV PAIN, Second choice; Start 07/02/17 at 07:00; Stop 07/03/17 at 06:59; Status DC Prochlorperazine Edisylate (Compazine) 5 mg PACU PRN PRN IV NAUSEA, MRX1; Start 07/02/17 at 07:00; Stop 07/03/17 at 06:59; Status DC Lidocaine HCl 30 ml STK-MED ONCE .ROUTE ; Start 07/02/17 at 07:13; Stop at 07:14; Status DC Bupivacaine HCl (Sensorcaine Mpf 0.5%) 30 ml STK-MED ONCE .ROUTE ; Start at 07:13; Stop 07/02/17 at 07:14; Status DC Clindamycin Phosphate 50 ml @ As Directed STK-MED ONCE IV ; Start 07/02/17 at 08 :19; Stop 07/02/17 at 08:20; Status DC Al Hydroxide/Mg Hydroxide (Mylanta Plus Xs) 30 ml PRN Q3HRS PRN PO HEARTBURN / GAS; Start 07/02/17 at 08:30 Oxycodone HCl (Roxicodone) 5 mg PRN Q3HRS PRN PO BREAKTHROUGH PAIN; Start 07/02 at 08:30 Morphine Sulfate 1 mg PRN Q1HR PRN IV PAIN; Start 07/02/17 at 08:30 Acetaminophen/ Hydrocodone Bitart (Lortab 5/325) 1 tab PRN Q4HRS PRN PO MODERATE - SEVERE PAIN Last administered on 07/03/17 21:10; Start 07/02/17 at 08:30 Senna/Docusate Sodium (Senna Plus) 1 tab BID PO Last administered on 22:10; Start 07/02/17 at 10:00 Magnesium Hydroxide (Milk Of Magnesia) 2,400 mg PRN Q12HR PRN PO CONSTIPATION; Start 07/02/17 at 08:30 Sodium Chloride 1,000 ml @ 100 mls/hr Q10H IV Last administered on 07/02/17 08:51; Start 07/02/17 at 08:30; Stop 07/03/17 at 10:02; Status DC Allopurinol (Zyloprim) 100 mg DAILY PO Last administered on 07/06/17 09:03; Start 07/02/17 at 09:00 Aspirin (Ecotrin) 81 mg DAILY PO Last administered on 07/06/17 09:04; Start 07/02/17 at 09:00 Vitamin D (Vitamin D3) 1,000 unit DAILY PO Last administered on 07/06/17 09: 03; Start 07/02/17 at 09:00 Clonidine HCl (Catapres) 0.2 mg BID PO Last administered on 07/06/17 09:05; Start 07/02/17 at 09:00 Darbepoetin Fredi (Aranesp) 60 mcg Sa SQ ; Start 07/05/17 at 21:00; Stop at 21:00; Status DC Docusate Sodium (Colace) 200 mg DAILY PO Last administered on 07/05/17 08:28 ; Start 07/02/17 at 10:00 Doxazosin Mesylate (Cardura) 4 mg HS PO Last administered on 07/05/17 22:10; Start 07/02/17 at 21:00 Ferrous Sulfate (Feosol) 325 mg DAILYWBKFT PO Last administered on 07/06/17 09:04; Start 07/02/17 at 09:00 Vitamin B Complex/ Vitamin C (Richelle-Harsha) 1 tab DAILY PO Last administered on 09:02; Start 07/02/17 at 09:00 Furosemide (Lasix) 80 mg BID92 PO Last administered on 07/06/17 13:46; Start 07/02/17 at 09:00 Albuterol/ Ipratropium (Duoneb) 3 ml TID NEB Last administered on 07/06/17 13 :18; Start 07/02/17 at 09:00 Lisinopril (Prinivil) 5 mg HS PO Last administered on 07/05/17 22:11; Start 07/02/17 at 21:00 Metoprolol Succinate (Toprol Xl) 25 mg DAILY PO Last administered on 09:04; Start 07/02/17 at 09:00 Sodium Bicarbonate (Sodium Bicarbonate) 650 mg TIDAC PO Last administered on 09:02; Start 07/02/17 at 11:30 Tamsulosin HCl (Flomax) 0.4 mg DAILY PO Last administered on 07/06/17 09:02; Start 07/02/17 at 09:00 Calcium Acetate (Phoslo) 667 mg TIDWMEALS PO Last administered on 07/06/17 09 :01; Start 07/02/17 at 12:00 Calcium Carbonate/ Glycine (Tums) 500 mg TIDWMEALS PO Last administered on 09:03; Start 07/02/17 at 12:00 Carvedilol (Coreg) 25 mg BIDWMEALS PO Last administered on 07/06/17 09:03; Start 07/02/17 at 17:00 Insulin Detemir (Levemir) 20 units QHS SQ Last administered on 07/05/17 22:17 ; Start 07/02/17 at 21:00 Potassium Chloride (Klor-Con) 20 meq BIDWMEALS PO Last administered on 09:14; Start 07/02/17 at 10:00; Stop 07/03/17 at 10:02; Status DC Atorvastatin Calcium (Lipitor) 5 mg QHS PO Last administered on 07/05/17 22: 11; Start 07/02/17 at 21:00 Non-Formulary Medication 400 mg BID PO ; Start 07/02/17 at 09:00; Stop 07/02/17 at 10:20; Status DC Zolpidem Tartrate (Ambien) 5 mg PRN QHS PRN PO INSOMNIA; Start 07/02/17 at 10: 15 Insulin Aspart (NovoLOG) 0-5 UNITS TIDWMEALS SQ Last administered on 07/02/17 17:22; Start 07/02/17 at 12:00; Stop 07/03/17 at 08:59; Status DC Dextrose (Dextrose 50%-Water Syringe) 12.5 gm PRN Q15MIN PRN IV SEE COMMENTS; Start 07/02/17 at 08:30; Stop 07/03/17 at 14:12; Status DC Clindamycin Phosphate 50 ml @ 100 mls/hr 1X ONCE IV ; Start 07/02/17 at 08:45 ; Stop 07/02/17 at 09:03; Status DC Propofol 20 ml @ As Directed STK-MED ONCE IV ; Start 07/02/17 at 08:44; Stop at 08:45; Status DC Lidocaine HCl (Lidocaine Pf 2% Vial) 5 ml STK-MED ONCE .ROUTE ; Start 07/02/17 at 08:44; Stop 07/02/17 at 08:45; Status DC Midazolam HCl (Versed) 2 mg STK-MED ONCE .ROUTE ; Start 07/02/17 at 08:45; Stop 07/02/17 at 08:46; Status DC Ephedrine Sulfate (Akovaz) 50 mg STK-MED ONCE .ROUTE ; Start 07/02/17 at 09:28; Stop 07/02/17 at 09:29; Status DC Phenylephrine HCl (Krunal-Synephrine Inj) 10 mg STK-MED ONCE .ROUTE ; Start at 09:37; Stop 07/02/17 at 09:38; Status DC Dexamethasone Sodium Phosphate (Decadron) 20 mg STK-MED ONCE .ROUTE ; Start 07/02/17 at 09:37; Stop 07/02/17 at 09:38; Status DC Ondansetron HCl (Zofran) 4 mg STK-MED ONCE .ROUTE ; Start 07/02/17 at 09:37; Stop 07/02/17 at 09:38; Status DC Sevoflurane (Ultane) 15 ml STK-MED ONCE IH ; Start 07/02/17 at 09:53; Stop 07/02 at 09:54; Status DC Zolpidem Tartrate (Ambien) 5 mg QHS PO Last administered on 07/05/17 22:10; Start 07/02/17 at 21:00 Acetaminophen (Tylenol) 650 mg PRN Q6HRS PRN PO FEVER Last administered on 07/02 23:18; Start 07/02/17 at 15:45 Ondansetron HCl (Zofran) 4 mg PRN Q6HRS PRN IV NAUSEA/VOMITING; Start 07/02/17 at 15:45 Morphine Sulfate 2 mg PRN Q2HR PRN IV PAIN; Start 07/02/17 at 15:45 Tramadol HCl (Ultram) 50 mg PRN Q6HRS PRN PO MILD PAIN; Start 07/02/17 at 15:45 Hydralazine HCl (Apresoline Inj) 10 mg PRN Q4HRS PRN IVP ELEVATED BP, SEE COMMENTS; Start 07/02/17 at 15:45 Docusate Sodium (Colace) 100 mg PRN DAILY PRN PO CONSTIPATION; Start 07/02/17 at 15:45 Insulin Aspart (NovoLOG) 0-9 UNITS TIDWMEALS SQ Last administered on 16:57; Start 07/03/17 at 12:00 Dextrose (Dextrose 50%-Water Syringe) 12.5 gm PRN Q15MIN PRN IV SEE COMMENTS; Start 07/03/17 at 09:00 Magnesium Sulfate/ Dextrose 50 ml @ 25 mls/hr PRN DAILY PRN IV for Mag < 1.7 on am labs; Start 07/03/17 at 09:15 Clindamycin Phosphate (Cleocin 900mg Premix) 900 mg STK-MED ONCE IV ; Start 07/02/17 at 08:00; Stop 07/03/17 at 09:11; Status DC Insulin Aspart (NovoLOG) 5 units 1X ONCE SQ Last administered on 07/03/17 09: 46; Start 07/03/17 at 09:30; Stop 07/03/17 at 09:31; Status DC Potassium Chloride (Klor-Con) 20 meq BIDWMEALS PO Last administered on 09:02; Start 07/03/17 at 17:00 Ciprofloxacin/ Dextrose 200 ml @ 200 mls/hr DAILY IV ; Start 07/03/17 at 14:00 ; Stop 07/03/17 at 14:38; Status DC Ciprofloxacin/ Dextrose 200 ml @ 200 mls/hr Q18H IV ; Start 07/04/17 at 09:00 ; Stop 07/04/17 at 11:51; Status DC Ciprofloxacin/ Dextrose 200 ml @ 200 mls/hr 1X ONCE IV Last administered on 07/03/17 16:24; Start 07/03/17 at 15:30; Stop 07/04/17 at 11:51; Status DC Magnesium Sulfate/ Dextrose 50 ml @ 25 mls/hr 1X ONCE IV Last administered on 07/04/17 11:41; Start 07/04/17 at 10:30; Stop 07/04/17 at 12:29; Status DC Ertapenem 0.5 gm/ Sodium Chloride 50 ml @ 100 mls/hr DAILY08 IV ; Start at 08:00; Status UNV Meropenem (Merrem) 500 mg Q24H IVP Last administered on 07/06/17 13:46; Start 07/04/17 at 13:00 Darbepoetin Fredi (Aranesp) 100 mcg QSA@2100 SQ Last administered on 07/05/17 22:15; Start 07/05/17 at 21:00 Lactobacillus Rhamnosus (Culturelle) 1 cap BID PO ; Start 07/06/17 at 21:00 Active Scripts Active Reported Carvedilol 25 Mg Tablet 1 Tab PO BID Coq-10 (Ubidecarenone) 100 Mg Capsule 400 Mg PO BID Krill Oil 500 mg Softgel (Krill/Om-3/Dha/Epa/Phospho/Ast) 1 Each Capsule 1 Each PO DAILY Vitamin D3 (Cholecalciferol (Vitamin D3)) 1,000 Unit Tablet 1 Tab PO DAILY Potassium Chloride 20 Meq Tablet.er 20 Meq PO BID Metoprolol Succinate ( Xl ) (Metoprolol Succinate) 25 Mg Tab.er.24h 1 Tab PO DAILY Calcium Acetate 667 Mg Tablet 1,334 Mg PO TIDWMEALS Ambien (Zolpidem Tartrate) 10 Mg Tablet 1 Tab PO QHS Humalog (Insulin Lispro) 100 Unit/1 Ml Cartridge 0 SQ Doxazosin Mesylate 4 Mg Tablet 4 Mg PO HS Nephro-Harsha Tablet (Folic Acid/Vitamin B Comp W-C) 0.8 Mg Tablet 1 Tab PO DAILY Aspir 81 (Aspirin) 81 Mg Tablet.dr 1 Tab PO DAILY Furosemide 80 Mg Tablet 80 Mg PO BID Sodium Bicarbonate 650 Mg Tablet 1 Tab PO TIDAC Artificial Tears Eye Drops (Dextran 70/Hypromellose) 15 Ml Drops 1 Drop EACHEYE BID Pravastatin Sodium 10 Mg Tablet 1 Tab PO QHS Tamsulosin Hcl 0.4 Mg Cap.er.24h 1 Cap PO DAILY Docusate Sodium 100 Mg Capsule 200 Mg PO DAILY Aranesp Syringe (Darbepoetin Fredi In Polysorbat) 60 Mcg/0.3 Ml Disp.syrin 60 Mcg SQ WEEKLY Ferrous Sulfate 325 Mg Tablet 1 Tab PO DAILY Duoneb 0.5-3(2.5) Mg/3 Ml (Albuterol/Ipratropium) 3 Ml Ampul.neb 3 Ml NEB TID Tums Ultra (Calcium Carbonate) 400 Mg Tab.chew 500 Mg PO TID Allopurinol 100 Mg Tablet 1 Tab PO DAILY Clonidine Hcl 0.2 Mg Tablet 1 Tab PO PRN TAKES ONLY IF HIS BLOOD PRESSURE IS ELEVATED Lisinopril 5 Mg Tablet 1 Tab PO HS Levemir (Insulin Detemir) 100 Unit/1 Ml Vial 20 Unit SQ HS Vitals/I & O Vital Sign - Last 24 Hours 07/05/17 07/05/17 07/05/17 07/05/17 15:00 16:52 19:00 19:37 Temp 97.7 97.7 97.7 97.7 Pulse 79 79 84 Resp 20 19 B/P (MAP) 150/63 (92) 150/63 149/40 (76) Pulse Ox 97 97 100 O2 Delivery Room Air Room Air Room Air 07/05/17 07/05/17 07/05/17 07/05/17 20:20 21:00 22:10 22:11 Pulse 84 84 84 B/P (MAP) 149/40 149/40 149/40 O2 Delivery Room Air 07/05/17 07/06/17 07/06/17 07/06/17 23:00 03:00 07:00 07:06 Temp 97.7 97.9 97.8 97.7 97.9 97.8 Pulse 84 84 78 Resp 19 18 20 B/P (MAP) 155/45 (81) 151/49 (83) 189/76 (113) Pulse Ox 93 92 94 96 O2 Delivery Room Air Room Air Room Air Room Air 07/06/17 07/06/17 07/06/17 07/06/17 07:30 09:03 09:04 09:05 Pulse 78 78 78 B/P (MAP) 189/76 189/76 189/76 O2 Delivery Room Air 07/06/17 07/06/17 09:07 13:19 Temp 97.9 97.9 Pulse 78 B/P (MAP) 189/76 (113) O2 Delivery Room Air Room Air Intake and Output 07/06/17 07/06/17 07/07/17 15:00 23:00 07:00 Intake Total 325 ml Balance 325 ml DAVONTE LIZARRAGA III DO Jul 06, 2017 14:36
[2017-07-06] MEDS: ZOLPIDEM 5 MG TABLET. PO SCH (22:24)
[2017-07-06] MEDS: DOXAZOSIN MESYLATE 4 MG TABLET. PO SCH (22:25)
[2017-07-06] MEDS: LACTOBACILLUS RHAMNOSUS GG 1 CAPSULE. PO SCH (22:25)
[2017-07-06] MEDS: ATORVASTATIN CALCIUM 10 MG TABLET. PO SCH (22:26)
[2017-07-06] MEDS: LISINOPRIL 5 MG TABLET. PO SCH (22:26)
[2017-07-06] MEDS: HYDROcodone/APAP 5/325MG 1 TAB TABLET PO PRN (22:27)
[2017-07-06] MEDS: INSULIN DETEMIR 300 UNITS/3 ML INSULN.PEN. SQ SCH (22:28)
[2017-07-07] VITALS (12 sets, daily range): BP systolic 153–218; BP diastolic 41–98
[2017-07-07 06:13] LABS: BASO % 1 % (0-3); EOS % 4 % (0-3); HEMATOCRIT 24.2 % (39.0-53.0); HEMOGLOBIN 7.9 g/dL (13.0-17.5); LYMPH # 0.3 x10^3/uL (1.0-4.8); LYMPH % 5 % (24-48); MEAN CORPUSCULAR HEMOGLOBIN 32 pg (25-35); MEAN CORPUSCULAR HGB CONC 33 g/dL (31-37); MEAN CORPUSCULAR VOLUME 97 fL (79-100); MONO % 4 % (0-9); NEUT % 87 % (31-73); PLATELET COUNT 98 x10^3/uL (140-400); RED BLOOD COUNT 2.48 x10^6/uL (4.30-5.70); WHITE BLOOD COUNT 6.1 x10^3/uL (4.0-11.0)
[2017-07-07] MEDS: IPRATRPIUM/ALBUTEROL 0.5/2.5MG 3 ML NEBU. NEB SCH ×3 (07:05→19:47)
[2017-07-07] MEDS: INSULIN ASPART 300 UNITS/3 ML INSULN.PEN SQ SCH ×3 (08:00→17:44)
[2017-07-07] MEDS: cloNIDine HCL 0.2 MG TABLET PO SCH ×2 (08:23→20:59)
[2017-07-07] MEDS: ALLOPURINOL 100 MG TABLET. PO SCH (08:23)
[2017-07-07] MEDS: FERROUS SULFATE 325 MG TABLET. PO SCH (08:23)
[2017-07-07] MEDS: CALCIUM ACETATE 667 MG CAPSULE PO SCH ×3 (08:24→17:39)
[2017-07-07] MEDS: LACTOBACILLUS RHAMNOSUS GG 1 CAPSULE. PO SCH ×2 (08:24→20:59)
[2017-07-07] MEDS: FOLIC/VIT B COMP W-C (RENAL) TABLET. PO SCH (08:24)
[2017-07-07] MEDS: CALCIUM CARBONATE 500 MG TAB.CHEW PO SCH ×3 (08:24→17:38)
[2017-07-07] MEDS: METOPROLOL SUCC 24HR ER 25 MG TAB.ER.24H. PO SCH (08:24)
[2017-07-07] MEDS: CARVEDILOL 12.5 MG TABLET. PO SCH ×2 (08:24→17:40)
[2017-07-07] MEDS: SODIUM BICARBONATE 650 MG TABLET. PO SCH ×3 (08:24→17:39)
[2017-07-07] MEDS: TAMSULOSIN 0.4 MG CAP.ER.24H. PO SCH (08:25)
[2017-07-07] MEDS: POTASSIUM CHLORIDE 20 MEQ TABLET.ER. PO SCH ×2 (08:25→17:39)
[2017-07-07] MEDS: FUROSEMIDE 80 MG TABLET. PO SCH ×2 (08:25→13:35)
[2017-07-07] MEDS: DOCUSATE SODIUM 100 MG CAPSULE. PO SCH (08:25)
[2017-07-07] MEDS: SENNOSIDES/DOCUSATE 8.6/50MG TABLET. PO SCH ×2 (08:26→21:10)
[2017-07-07] MEDS: ASPIRIN ENTERIC COATED 81 MG TABLET.DR. PO SCH (08:26)
[2017-07-07] MEDS: CHOLECALCIFEROL (VITAMIN D3) 1,000 UNIT TABLET PO SCH (08:27)
--- NOTE | 2017-07-07 09:21 | PDOC ---
Infectious Disease Note Subjective Subjective Comfortable, denies pain No N/v ROS ROS GEN: Denies fevers, chills, sweats HEENT: Denies blurred vision, sore throat CV: Denies chest pain RESP: Denies shortness of air, cough GI: Denies n/v/d NEURO: Denies confusion, dizziness MSK: Denies weakness, joint pain/swelling Vital Sign Vital Signs Vital Signs Date Time Temp Pulse Resp B/P (MAP) Pulse Ox O2 Delivery O2 Flow Rate FiO2 07/07/17 08:24 77 175/91 07/07/17 07:06 Room Air 07/07/17 07:00 97.9 20 97 97.9 Physical Exam PHYSICAL EXAM GENERAL: NAD, Alert HEENT: PERRL, OC/OP - clear NECK: Supple, no JVD, no LN LUNGS: Clear HEART: S1S2, no gallop, + murmur ABD: Soft, NT, no organomegaly, no rebound EXT: No edema, no cyanosis. Vac to Left foot FREEZER UNLOADER: Alert, oriented x 3, no focal neurologic deficit SKIN: No rash IV: RUE - PICC clean - mild ecchymosis LUE fistula Labs Lab Laboratory Tests Test 07/06/17 12:22 07/06/17 17:15 07/06/17 21:25 07/07/17 06:00 Glucose (Fingerstick) 221 mg/dL (70-99) 257 mg/dL (70-99) 169 mg/dL (70-99) White Blood Count 6.1 x10^3/uL (4.0-11.0) Red Blood Count 2.48 x10^6/uL (4.30-5.70) Hemoglobin 7.9 g/dL (13.0-17.5) Hematocrit 24.2 % (39.0-53.0) Mean Corpuscular Volume 97 fL (79-100) Mean Corpuscular Hemoglobin 32 pg (25-35) Mean Corpuscular Hemoglobin Concent 33 g/dL (31-37) Red Cell Distribution Width 18.0 % (11.5-14.5) Platelet Count 98 x10^3/uL (140-400) Neutrophils (%) (Auto) 87 % (31-73) Lymphocytes (%) (Auto) 5 % (24-48) Monocytes (%) (Auto) 4 % (0-9) Eosinophils (%) (Auto) 4 % (0-3) Basophils (%) (Auto) 1 % (0-3) Neutrophils # (Auto) 5.3 x10^3uL (1.8-7.7) Lymphocytes # (Auto) 0.3 x10^3/uL (1.0-4.8) Monocytes # (Auto) 0.3 x10^3/uL (0.0-1.1) Eosinophils # (Auto) 0.2 x10^3/uL (0.0-0.7) Basophils # (Auto) 0.0 x10^3/uL (0.0-0.2) Sodium Level 138 mmol/L (136-145) Potassium Level 4.1 mmol/L (3.5-5.1) Chloride Level 100 mmol/L (98-107) Carbon Dioxide Level 31 mmol/L (21-32) Anion Gap 7 (6-14) Blood Urea Nitrogen 74 mg/dL (8-26) Creatinine 6.2 mg/dL (0.7-1.3) Estimated GFR (Cockcroft-Gault) 9.2 Glucose Level 110 mg/dL (70-99) Calcium Level 8.5 mg/dL (8.5-10.1) Magnesium Level 1.9 mg/dL (1.8-2.4) Test 07/07/17 07:50 Glucose (Fingerstick) 107 mg/dL (70-99) Objective Assessment 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 Lee. ESBL/MDR Klebsiella (S carbapenems & levofloxacin; I cipro otherwise resistant) End-stage renal disease, on peritoneal dialysis. Diabetes mellitus 2 with neuropathy. Coronary artery disease. 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 Acute on chronic anemia. History of recurrent gastrointestinal bleed. History of gastric ulcer, status post clip and epinephrine injection. History of chronic thrombocytopenia. PENICILLIN ALLERGY, has had amoxicillin and Zosyn in the past, tolerated it Plan Plan of Care Continue renally dosed Meropenem -wound care -weekly labs cbc, cmp and ESR while on antibiotics fax to [phone] F/u ID office 2 weeks [phone] -maintain isolation D/w D/w NEELAM Quiñones MD Jul 07, 2017 09:21
[2017-07-07 09:24] LABS: ALBUMIN 2.1 g/dL (3.4-5.0); POTASSIUM 4.1 mmol/L (3.5-5.1)
[2017-07-07 09:31] LABS: CALCIUM 8.5 mg/dL (8.5-10.1); CREATININE 6.2 mg/dL (0.7-1.3); GFR 9.2
--- NOTE | 2017-07-07 09:33 | DISCH ---
DISCHARGE INSTRUCTIONS Condition on Discharge Condition on Discharge: Stable Activity After Discharge Activity Instructions for Disc: Other, see below Other activity instructions: limit ambulation, but ok to weight bear through heel, walker Weight Bearing Status after Di: As tolerated Diet after Discharge Diet after Discharge: Renal Dialysis Wound Incision Care Wound/Incision Care: Keep wound/cast CDI, Keep wound elevated Wound Care Equipment: Wound vac Contacting the DRDiomedes after DC Call your doctor for: Concerns you may have Follow-Up Follow up with: Rosa in 2wks JOSELITO PONCE II, MD Jul 07, 2017 09:33
--- NOTE | 2017-07-07 09:35 | PDOC ---
ORTHO PROGRESS NOTES Subjective Little pain. No complaints Vitals Vital Signs Date Time Temp Pulse Resp B/P (MAP) Pulse Ox O2 Delivery O2 Flow Rate FiO2 07/07/17 08:24 77 175/91 07/07/17 07:06 Room Air 07/07/17 07:00 97.9 20 97 97.9 Labs Laboratory Tests Test 07/05/17 11:16 07/05/17 16:29 07/05/17 20:40 07/06/17 06:30 Glucose (Fingerstick) 154 mg/dL (70-99) 203 mg/dL (70-99) 151 mg/dL (70-99) White Blood Count 7.3 x10^3/uL (4.0-11.0) Red Blood Count 2.49 x10^6/uL (4.30-5.70) Hemoglobin 8.0 g/dL (13.0-17.5) Hematocrit 24.1 % (39.0-53.0) Mean Corpuscular Volume 97 fL (79-100) Mean Corpuscular Hemoglobin 32 pg (25-35) Mean Corpuscular Hemoglobin Concent 33 g/dL (31-37) Red Cell Distribution Width 18.0 % (11.5-14.5) Platelet Count 100 x10^3/uL (140-400) Neutrophils (%) (Auto) 89 % (31-73) Lymphocytes (%) (Auto) 3 % (24-48) Monocytes (%) (Auto) 5 % (0-9) Eosinophils (%) (Auto) 3 % (0-3) Basophils (%) (Auto) 1 % (0-3) Neutrophils # (Auto) 6.5 x10^3uL (1.8-7.7) Lymphocytes # (Auto) 0.2 x10^3/uL (1.0-4.8) Monocytes # (Auto) 0.3 x10^3/uL (0.0-1.1) Eosinophils # (Auto) 0.2 x10^3/uL (0.0-0.7) Basophils # (Auto) 0.0 x10^3/uL (0.0-0.2) Sodium Level 138 mmol/L (136-145) Potassium Level 4.0 mmol/L (3.5-5.1) Chloride Level 100 mmol/L (98-107) Carbon Dioxide Level 30 mmol/L (21-32) Anion Gap 8 (6-14) Blood Urea Nitrogen 76 mg/dL (8-26) Creatinine 6.6 mg/dL (0.7-1.3) Estimated GFR (Cockcroft-Gault) 8.6 Glucose Level 143 mg/dL (70-99) Calcium Level 8.3 mg/dL (8.5-10.1) Phosphorus Level 4.5 mg/dL (2.6-4.7) Magnesium Level 1.8 mg/dL (1.8-2.4) Albumin 2.1 g/dL (3.4-5.0) Test 07/06/17 08:29 07/06/17 12:22 07/06/17 17:15 07/06/17 21:25 Glucose (Fingerstick) 131 mg/dL (70-99) 221 mg/dL (70-99) 257 mg/dL (70-99) 169 mg/dL (70-99) Test 07/07/17 06:00 07/07/17 07:50 White Blood Count 6.1 x10^3/uL (4.0-11.0) Red Blood Count 2.48 x10^6/uL (4.30-5.70) Hemoglobin 7.9 g/dL (13.0-17.5) Hematocrit 24.2 % (39.0-53.0) Mean Corpuscular Volume 97 fL (79-100) Mean Corpuscular Hemoglobin 32 pg (25-35) Mean Corpuscular Hemoglobin Concent 33 g/dL (31-37) Red Cell Distribution Width 18.0 % (11.5-14.5) Platelet Count 98 x10^3/uL (140-400) Neutrophils (%) (Auto) 87 % (31-73) Lymphocytes (%) (Auto) 5 % (24-48) Monocytes (%) (Auto) 4 % (0-9) Eosinophils (%) (Auto) 4 % (0-3) Basophils (%) (Auto) 1 % (0-3) Neutrophils # (Auto) 5.3 x10^3uL (1.8-7.7) Lymphocytes # (Auto) 0.3 x10^3/uL (1.0-4.8) Monocytes # (Auto) 0.3 x10^3/uL (0.0-1.1) Eosinophils # (Auto) 0.2 x10^3/uL (0.0-0.7) Basophils # (Auto) 0.0 x10^3/uL (0.0-0.2) Sodium Level 138 mmol/L (136-145) Potassium Level 4.1 mmol/L (3.5-5.1) Chloride Level 100 mmol/L (98-107) Carbon Dioxide Level 31 mmol/L (21-32) Anion Gap 7 (6-14) Blood Urea Nitrogen 74 mg/dL (8-26) Creatinine 6.2 mg/dL (0.7-1.3) Estimated GFR (Cockcroft-Gault) 9.2 Glucose Level 110 mg/dL (70-99) Calcium Level 8.5 mg/dL (8.5-10.1) Phosphorus Level 5.0 mg/dL (2.6-4.7) Magnesium Level 1.9 mg/dL (1.8-2.4) Albumin 2.1 g/dL (3.4-5.0) Glucose (Fingerstick) 107 mg/dL (70-99) Laboratory Tests Test 07/06/17 12:22 07/06/17 17:15 07/06/17 21:25 07/07/17 06:00 Glucose (Fingerstick) 221 mg/dL (70-99) 257 mg/dL (70-99) 169 mg/dL (70-99) White Blood Count 6.1 x10^3/uL (4.0-11.0) Red Blood Count 2.48 x10^6/uL (4.30-5.70) Hemoglobin 7.9 g/dL (13.0-17.5) Hematocrit 24.2 % (39.0-53.0) Mean Corpuscular Volume 97 fL (79-100) Mean Corpuscular Hemoglobin 32 pg (25-35) Mean Corpuscular Hemoglobin Concent 33 g/dL (31-37) Red Cell Distribution Width 18.0 % (11.5-14.5) Platelet Count 98 x10^3/uL (140-400) Neutrophils (%) (Auto) 87 % (31-73) Lymphocytes (%) (Auto) 5 % (24-48) Monocytes (%) (Auto) 4 % (0-9) Eosinophils (%) (Auto) 4 % (0-3) Basophils (%) (Auto) 1 % (0-3) Neutrophils # (Auto) 5.3 x10^3uL (1.8-7.7) Lymphocytes # (Auto) 0.3 x10^3/uL (1.0-4.8) Monocytes # (Auto) 0.3 x10^3/uL (0.0-1.1) Eosinophils # (Auto) 0.2 x10^3/uL (0.0-0.7) Basophils # (Auto) 0.0 x10^3/uL (0.0-0.2) Sodium Level 138 mmol/L (136-145) Potassium Level 4.1 mmol/L (3.5-5.1) Chloride Level 100 mmol/L (98-107) Carbon Dioxide Level 31 mmol/L (21-32) Anion Gap 7 (6-14) Blood Urea Nitrogen 74 mg/dL (8-26) Creatinine 6.2 mg/dL (0.7-1.3) Estimated GFR (Cockcroft-Gault) 9.2 Glucose Level 110 mg/dL (70-99) Calcium Level 8.5 mg/dL (8.5-10.1) Phosphorus Level 5.0 mg/dL (2.6-4.7) Magnesium Level 1.9 mg/dL (1.8-2.4) Albumin 2.1 g/dL (3.4-5.0) Test 07/07/17 07:50 Glucose (Fingerstick) 107 mg/dL (70-99) Notes A and A in bed LLE: wound unchanged, VAC in place with good seal Assessment and Plan transfer when facility available paperwork in chart JOSELITO PONCE II, MD Jul 07, 2017 09:35
--- NOTE | 2017-07-07 11:47 | PDOC ---
Renal-Progress Notes Subjective Notes Notes FEELS WELL History of Present Illness Hx of present illness STABLE Vitals Vitals Vital Signs Date Time Temp Pulse Resp B/P (MAP) Pulse Ox O2 Delivery O2 Flow Rate FiO2 07/07/17 08:24 77 175/91 07/07/17 07:06 Room Air 07/07/17 07:00 97.9 20 97 97.9 Weight Weight [ ] I.O. Intake and Output Intake and Output 07/07/17 07:00 Intake Total 565 ml Output Total 300 ml Balance 265 ml Intake Oral 565 ml Output Urine Total 300 ml Labs Labs Laboratory Tests Test 07/06/17 12:22 07/06/17 17:15 07/06/17 21:25 07/07/17 06:00 Glucose (Fingerstick) 221 mg/dL (70-99) 257 mg/dL (70-99) 169 mg/dL (70-99) White Blood Count 6.1 x10^3/uL (4.0-11.0) Red Blood Count 2.48 x10^6/uL (4.30-5.70) Hemoglobin 7.9 g/dL (13.0-17.5) Hematocrit 24.2 % (39.0-53.0) Mean Corpuscular Volume 97 fL (79-100) Mean Corpuscular Hemoglobin 32 pg (25-35) Mean Corpuscular Hemoglobin Concent 33 g/dL (31-37) Red Cell Distribution Width 18.0 % (11.5-14.5) Platelet Count 98 x10^3/uL (140-400) Neutrophils (%) (Auto) 87 % (31-73) Lymphocytes (%) (Auto) 5 % (24-48) Monocytes (%) (Auto) 4 % (0-9) Eosinophils (%) (Auto) 4 % (0-3) Basophils (%) (Auto) 1 % (0-3) Neutrophils # (Auto) 5.3 x10^3uL (1.8-7.7) Lymphocytes # (Auto) 0.3 x10^3/uL (1.0-4.8) Monocytes # (Auto) 0.3 x10^3/uL (0.0-1.1) Eosinophils # (Auto) 0.2 x10^3/uL (0.0-0.7) Basophils # (Auto) 0.0 x10^3/uL (0.0-0.2) Sodium Level 138 mmol/L (136-145) Potassium Level 4.1 mmol/L (3.5-5.1) Chloride Level 100 mmol/L (98-107) Carbon Dioxide Level 31 mmol/L (21-32) Anion Gap 7 (6-14) Blood Urea Nitrogen 74 mg/dL (8-26) Creatinine 6.2 mg/dL (0.7-1.3) Estimated GFR (Cockcroft-Gault) 9.2 Glucose Level 110 mg/dL (70-99) Calcium Level 8.5 mg/dL (8.5-10.1) Phosphorus Level 5.0 mg/dL (2.6-4.7) Magnesium Level 1.9 mg/dL (1.8-2.4) Albumin 2.1 g/dL (3.4-5.0) Test 07/07/17 07:50 Glucose (Fingerstick) 107 mg/dL (70-99) Micro Micro Microbiology 07/02/17 Anaerobic/Aerobic Culture - Preliminary, Resulted 07/02/17 Anaerobic Culture Result 1 (BELKIS) - Preliminary, Resulted 07/02/17 Aerobic Culture - Final, Resulted 07/02/17 Aerobic Culture Result 1 (BELKIS) - Final, Resulted Review of Systems Constitutional: yes: malaise, weakness, alert, oriented Ears/Nose/Throat: Yes: no symptom reported Eyes: Yes: no symptom reported Pulmonary: Yes no symptom reported Cardiovascular: Yes no symptom reported Gastrointestional: Yes: constipation Genitourinary: Yes: no symptom reported Musculoskeletal: Yes: muscle stiffness, muscle atrophy Skin: Yes no symptom reported Psychiatric/Neurological: Yes: no symptom reported Endocrine: Yes: no symptom reported Physical Exam General Appearance: no apparent distress Skin: warm Respiratory: bilateral CTA Heart: S1S2 Abdomen: soft, bowel sounds present Genitourinary: bladder flat Extremities: pulses present Neurology: alert, oriented Assessment Assessment IMP DM II HTN ANEMIA ESRD LEFT FOOT WOUND PLAN CONT CAPD TO ACUTE REHAB SUPPORTIVE CARE SYED DOTY MD Jul 07, 2017 11:47
[2017-07-07] MEDS: MEROPENEM IV Push 500 MG VIAL. IVP SCH (13:36)
--- NOTE | 2017-07-07 14:02 | PDOC ---
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 He is on meropenem for abx. He is currently on wound vac. Pt is also on dialysis and has a PICC line. Pt was seen at bedside resting comfortably in NAD. Pt is being followed by orthopedics, nephrology, and ID. Will continue abx, wound care, and dialysis. Will continue to monitor. ROS: no fever, chills, sob or chest pain feels ok high BP Vitals Vitals Vital Signs Date Time Temp Pulse Resp B/P (MAP) Pulse Ox O2 Delivery O2 Flow Rate FiO2 07/07/17 11:00 97.3 76 20 172/98 (122) 92 Room Air 97.3 Physical Exam General: Alert, Oriented X3, Cooperative, No acute distress Heart: Regular rate, Normal S1, Normal S2, No murmurs, Gallops Lungs: Clear Abdomen: Normal bowel sounds, Soft, No tenderness, No hepatosplenomegaly, No masses Extremities: No clubbing, No cyanosis, No edema, Normal pulses, No tenderness/ swelling Skin: Other (left foot post sx, wound vac on) Labs LABS Laboratory Tests Test 07/06/17 17:15 07/06/17 21:25 07/07/17 06:00 07/07/17 07:50 Glucose (Fingerstick) 257 mg/dL (70-99) 169 mg/dL (70-99) 107 mg/dL (70-99) White Blood Count 6.1 x10^3/uL (4.0-11.0) Red Blood Count 2.48 x10^6/uL (4.30-5.70) Hemoglobin 7.9 g/dL (13.0-17.5) Hematocrit 24.2 % (39.0-53.0) Mean Corpuscular Volume 97 fL (79-100) Mean Corpuscular Hemoglobin 32 pg (25-35) Mean Corpuscular Hemoglobin Concent 33 g/dL (31-37) Red Cell Distribution Width 18.0 % (11.5-14.5) Platelet Count 98 x10^3/uL (140-400) Neutrophils (%) (Auto) 87 % (31-73) Lymphocytes (%) (Auto) 5 % (24-48) Monocytes (%) (Auto) 4 % (0-9) Eosinophils (%) (Auto) 4 % (0-3) Basophils (%) (Auto) 1 % (0-3) Neutrophils # (Auto) 5.3 x10^3uL (1.8-7.7) Lymphocytes # (Auto) 0.3 x10^3/uL (1.0-4.8) Monocytes # (Auto) 0.3 x10^3/uL (0.0-1.1) Eosinophils # (Auto) 0.2 x10^3/uL (0.0-0.7) Basophils # (Auto) 0.0 x10^3/uL (0.0-0.2) Sodium Level 138 mmol/L (136-145) Potassium Level 4.1 mmol/L (3.5-5.1) Chloride Level 100 mmol/L (98-107) Carbon Dioxide Level 31 mmol/L (21-32) Anion Gap 7 (6-14) Blood Urea Nitrogen 74 mg/dL (8-26) Creatinine 6.2 mg/dL (0.7-1.3) Estimated GFR (Cockcroft-Gault) 9.2 Glucose Level 110 mg/dL (70-99) Calcium Level 8.5 mg/dL (8.5-10.1) Phosphorus Level 5.0 mg/dL (2.6-4.7) Magnesium Level 1.9 mg/dL (1.8-2.4) Albumin 2.1 g/dL (3.4-5.0) Test 07/07/17 11:41 Glucose (Fingerstick) 202 mg/dL (70-99) Comment Review of Relevant I have reviewed the following items den (where applicable) has been applied. Labs Laboratory Tests Test 07/05/17 16:29 07/05/17 20:40 07/06/17 06:30 07/06/17 08:29 Glucose (Fingerstick) 203 mg/dL (70-99) 151 mg/dL (70-99) 131 mg/dL (70-99) White Blood Count 7.3 x10^3/uL (4.0-11.0) Red Blood Count 2.49 x10^6/uL (4.30-5.70) Hemoglobin 8.0 g/dL (13.0-17.5) Hematocrit 24.1 % (39.0-53.0) Mean Corpuscular Volume 97 fL (79-100) Mean Corpuscular Hemoglobin 32 pg (25-35) Mean Corpuscular Hemoglobin Concent 33 g/dL (31-37) Red Cell Distribution Width 18.0 % (11.5-14.5) Platelet Count 100 x10^3/uL (140-400) Neutrophils (%) (Auto) 89 % (31-73) Lymphocytes (%) (Auto) 3 % (24-48) Monocytes (%) (Auto) 5 % (0-9) Eosinophils (%) (Auto) 3 % (0-3) Basophils (%) (Auto) 1 % (0-3) Neutrophils # (Auto) 6.5 x10^3uL (1.8-7.7) Lymphocytes # (Auto) 0.2 x10^3/uL (1.0-4.8) Monocytes # (Auto) 0.3 x10^3/uL (0.0-1.1) Eosinophils # (Auto) 0.2 x10^3/uL (0.0-0.7) Basophils # (Auto) 0.0 x10^3/uL (0.0-0.2) Sodium Level 138 mmol/L (136-145) Potassium Level 4.0 mmol/L (3.5-5.1) Chloride Level 100 mmol/L (98-107) Carbon Dioxide Level 30 mmol/L (21-32) Anion Gap 8 (6-14) Blood Urea Nitrogen 76 mg/dL (8-26) Creatinine 6.6 mg/dL (0.7-1.3) Estimated GFR (Cockcroft-Gault) 8.6 Glucose Level 143 mg/dL (70-99) Calcium Level 8.3 mg/dL (8.5-10.1) Phosphorus Level 4.5 mg/dL (2.6-4.7) Magnesium Level 1.8 mg/dL (1.8-2.4) Albumin 2.1 g/dL (3.4-5.0) Test 07/06/17 12:22 07/06/17 17:15 07/06/17 21:25 07/07/17 06:00 Glucose (Fingerstick) 221 mg/dL (70-99) 257 mg/dL (70-99) 169 mg/dL (70-99) White Blood Count 6.1 x10^3/uL (4.0-11.0) Red Blood Count 2.48 x10^6/uL (4.30-5.70) Hemoglobin 7.9 g/dL (13.0-17.5) Hematocrit 24.2 % (39.0-53.0) Mean Corpuscular Volume 97 fL (79-100) Mean Corpuscular Hemoglobin 32 pg (25-35) Mean Corpuscular Hemoglobin Concent 33 g/dL (31-37) Red Cell Distribution Width 18.0 % (11.5-14.5) Platelet Count 98 x10^3/uL (140-400) Neutrophils (%) (Auto) 87 % (31-73) Lymphocytes (%) (Auto) 5 % (24-48) Monocytes (%) (Auto) 4 % (0-9) Eosinophils (%) (Auto) 4 % (0-3) Basophils (%) (Auto) 1 % (0-3) Neutrophils # (Auto) 5.3 x10^3uL (1.8-7.7) Lymphocytes # (Auto) 0.3 x10^3/uL (1.0-4.8) Monocytes # (Auto) 0.3 x10^3/uL (0.0-1.1) Eosinophils # (Auto) 0.2 x10^3/uL (0.0-0.7) Basophils # (Auto) 0.0 x10^3/uL (0.0-0.2) Sodium Level 138 mmol/L (136-145) Potassium Level 4.1 mmol/L (3.5-5.1) Chloride Level 100 mmol/L (98-107) Carbon Dioxide Level 31 mmol/L (21-32) Anion Gap 7 (6-14) Blood Urea Nitrogen 74 mg/dL (8-26) Creatinine 6.2 mg/dL (0.7-1.3) Estimated GFR (Cockcroft-Gault) 9.2 Glucose Level 110 mg/dL (70-99) Calcium Level 8.5 mg/dL (8.5-10.1) Phosphorus Level 5.0 mg/dL (2.6-4.7) Magnesium Level 1.9 mg/dL (1.8-2.4) Albumin 2.1 g/dL (3.4-5.0) Test 07/07/17 07:50 07/07/17 11:41 Glucose (Fingerstick) 107 mg/dL (70-99) 202 mg/dL (70-99) Laboratory Tests Test 07/06/17 17:15 07/06/17 21:25 07/07/17 06:00 07/07/17 07:50 Glucose (Fingerstick) 257 mg/dL (70-99) 169 mg/dL (70-99) 107 mg/dL (70-99) White Blood Count 6.1 x10^3/uL (4.0-11.0) Red Blood Count 2.48 x10^6/uL (4.30-5.70) Hemoglobin 7.9 g/dL (13.0-17.5) Hematocrit 24.2 % (39.0-53.0) Mean Corpuscular Volume 97 fL (79-100) Mean Corpuscular Hemoglobin 32 pg (25-35) Mean Corpuscular Hemoglobin Concent 33 g/dL (31-37) Red Cell Distribution Width 18.0 % (11.5-14.5) Platelet Count 98 x10^3/uL (140-400) Neutrophils (%) (Auto) 87 % (31-73) Lymphocytes (%) (Auto) 5 % (24-48) Monocytes (%) (Auto) 4 % (0-9) Eosinophils (%) (Auto) 4 % (0-3) Basophils (%) (Auto) 1 % (0-3) Neutrophils # (Auto) 5.3 x10^3uL (1.8-7.7) Lymphocytes # (Auto) 0.3 x10^3/uL (1.0-4.8) Monocytes # (Auto) 0.3 x10^3/uL (0.0-1.1) Eosinophils # (Auto) 0.2 x10^3/uL (0.0-0.7) Basophils # (Auto) 0.0 x10^3/uL (0.0-0.2) Sodium Level 138 mmol/L (136-145) Potassium Level 4.1 mmol/L (3.5-5.1) Chloride Level 100 mmol/L (98-107) Carbon Dioxide Level 31 mmol/L (21-32) Anion Gap 7 (6-14) Blood Urea Nitrogen 74 mg/dL (8-26) Creatinine 6.2 mg/dL (0.7-1.3) Estimated GFR (Cockcroft-Gault) 9.2 Glucose Level 110 mg/dL (70-99) Calcium Level 8.5 mg/dL (8.5-10.1) Phosphorus Level 5.0 mg/dL (2.6-4.7) Magnesium Level 1.9 mg/dL (1.8-2.4) Albumin 2.1 g/dL (3.4-5.0) Test 07/07/17 11:41 Glucose (Fingerstick) 202 mg/dL (70-99) Microbiology 07/02/17 Anaerobic/Aerobic Culture - Final, Complete 07/02/17 Anaerobic Culture Result 1 (BELKIS) - Final, Complete 07/02/17 Aerobic Culture - Final, Complete 07/02/17 Aerobic Culture Result 1 (BELKIS) - Final, Complete Medications Current Medications Ondansetron HCl (Zofran) 4 mg PRN Q6HRS PRN IV NAUSEA/VOMITING; Start 07/02/17 at 07:00; Stop 07/03/17 at 06:59; Status DC Fentanyl Citrate (Fentanyl 2ml Vial) 25 mcg PRN Q5MIN PRN IV MILD PAIN; Start 07/02/17 at 07:00; Stop 07/03/17 at 06:59; Status DC Fentanyl Citrate (Fentanyl 2ml Vial) 50 mcg PRN Q5MIN PRN IV MODERATE PAIN; Start 07/02/17 at 07:00; Stop 07/03/17 at 06:59; Status DC Morphine Sulfate 1 mg PRN Q10MIN PRN IV SEVERE PAIN; Start 07/02/17 at 07:00; Stop 07/03/17 at 06:59; Status DC Ringer's Solution 1,000 ml @ 30 mls/hr Q24H IV ; Start 07/02/17 at 07:00; Stop 07/02/17 at 18:59; Status DC Lidocaine HCl (Xylocaine-Mpf 1% Vial) 2 ml PRN 1X PRN ID IV START; Start at 07:00; Stop 07/03/17 at 06:59; Status DC Hydromorphone HCl (Dilaudid) 0.5 mg PRN Q10MIN PRN IV SEV PAIN, Second choice; Start 07/02/17 at 07:00; Stop 07/03/17 at 06:59; Status DC Prochlorperazine Edisylate (Compazine) 5 mg PACU PRN PRN IV NAUSEA, MRX1; Start 07/02/17 at 07:00; Stop 07/03/17 at 06:59; Status DC Lidocaine HCl 30 ml STK-MED ONCE .ROUTE ; Start 07/02/17 at 07:13; Stop at 07:14; Status DC Bupivacaine HCl (Sensorcaine Mpf 0.5%) 30 ml STK-MED ONCE .ROUTE ; Start at 07:13; Stop 07/02/17 at 07:14; Status DC Clindamycin Phosphate 50 ml @ As Directed STK-MED ONCE IV ; Start 07/02/17 at 08 :19; Stop 07/02/17 at 08:20; Status DC Al Hydroxide/Mg Hydroxide (Mylanta Plus Xs) 30 ml PRN Q3HRS PRN PO HEARTBURN / GAS; Start 07/02/17 at 08:30 Oxycodone HCl (Roxicodone) 5 mg PRN Q3HRS PRN PO BREAKTHROUGH PAIN; Start 07/02 at 08:30 Morphine Sulfate 1 mg PRN Q1HR PRN IV PAIN; Start 07/02/17 at 08:30 Acetaminophen/ Hydrocodone Bitart (Lortab 5/325) 1 tab PRN Q4HRS PRN PO MODERATE - SEVERE PAIN Last administered on 07/06/17 22:27; Start 07/02/17 at 08:30 Senna/Docusate Sodium (Senna Plus) 1 tab BID PO Last administered on 08:26; Start 07/02/17 at 10:00 Magnesium Hydroxide (Milk Of Magnesia) 2,400 mg PRN Q12HR PRN PO CONSTIPATION; Start 07/02/17 at 08:30 Sodium Chloride 1,000 ml @ 100 mls/hr Q10H IV Last administered on 07/02/17 08:51; Start 07/02/17 at 08:30; Stop 07/03/17 at 10:02; Status DC Allopurinol (Zyloprim) 100 mg DAILY PO Last administered on 07/07/17 08:23; Start 07/02/17 at 09:00 Aspirin (Ecotrin) 81 mg DAILY PO Last administered on 07/07/17 08:26; Start 07/02/17 at 09:00 Vitamin D (Vitamin D3) 1,000 unit DAILY PO Last administered on 07/07/17 08: 27; Start 07/02/17 at 09:00 Clonidine HCl (Catapres) 0.2 mg BID PO Last administered on 07/07/17 08:23; Start 07/02/17 at 09:00 Darbepoetin Fredi (Aranesp) 60 mcg Sa SQ ; Start 07/05/17 at 21:00; Stop at 21:00; Status DC Docusate Sodium (Colace) 200 mg DAILY PO Last administered on 07/07/17 08:25 ; Start 07/02/17 at 10:00 Doxazosin Mesylate (Cardura) 4 mg HS PO Last administered on 07/06/17 22:25; Start 07/02/17 at 21:00 Ferrous Sulfate (Feosol) 325 mg DAILYWBKFT PO Last administered on 07/07/17 08:23; Start 07/02/17 at 09:00 Vitamin B Complex/ Vitamin C (Richelle-Harsha) 1 tab DAILY PO Last administered on 08:24; Start 07/02/17 at 09:00 Furosemide (Lasix) 80 mg BID92 PO Last administered on 07/07/17 13:35; Start 07/02/17 at 09:00 Albuterol/ Ipratropium (Duoneb) 3 ml TID NEB Last administered on 07/07/17 07 :05; Start 07/02/17 at 09:00 Lisinopril (Prinivil) 5 mg HS PO Last administered on 07/06/17 22:26; Start 07/02/17 at 21:00 Metoprolol Succinate (Toprol Xl) 25 mg DAILY PO Last administered on 08:24; Start 07/02/17 at 09:00 Sodium Bicarbonate (Sodium Bicarbonate) 650 mg TIDAC PO Last administered on 12:01; Start 07/02/17 at 11:30 Tamsulosin HCl (Flomax) 0.4 mg DAILY PO Last administered on 07/07/17 08:25; Start 07/02/17 at 09:00 Calcium Acetate (Phoslo) 667 mg TIDWMEALS PO Last administered on 07/07/17 12 :01; Start 07/02/17 at 12:00 Calcium Carbonate/ Glycine (Tums) 500 mg TIDWMEALS PO Last administered on 12:01; Start 07/02/17 at 12:00 Carvedilol (Coreg) 25 mg BIDWMEALS PO Last administered on 07/07/17 08:24; Start 07/02/17 at 17:00 Insulin Detemir (Levemir) 20 units QHS SQ Last administered on 07/06/17 22:28 ; Start 07/02/17 at 21:00 Potassium Chloride (Klor-Con) 20 meq BIDWMEALS PO Last administered on 09:14; Start 07/02/17 at 10:00; Stop 07/03/17 at 10:02; Status DC Atorvastatin Calcium (Lipitor) 5 mg QHS PO Last administered on 07/06/17 22: 26; Start 07/02/17 at 21:00 Non-Formulary Medication 400 mg BID PO ; Start 07/02/17 at 09:00; Stop 07/02/17 at 10:20; Status DC Zolpidem Tartrate (Ambien) 5 mg PRN QHS PRN PO INSOMNIA; Start 07/02/17 at 10: 15 Insulin Aspart (NovoLOG) 0-5 UNITS TIDWMEALS SQ Last administered on 07/02/17t 17:22; Start 07/02/17 at 12:00; Stop 07/03/17 at 08:59; Status DC Dextrose (Dextrose 50%-Water Syringe) 12.5 gm PRN Q15MIN PRN IV SEE COMMENTS; Start 07/02/17 at 08:30; Stop 07/03/17 at 14:12; Status DC Clindamycin Phosphate 50 ml @ 100 mls/hr 1X ONCE IV ; Start 07/02/17 at 08:45 ; Stop 07/02/17 at 09:03; Status DC Propofol 20 ml @ As Directed STK-MED ONCE IV ; Start 07/02/17 at 08:44; Stop at 08:45; Status DC Lidocaine HCl (Lidocaine Pf 2% Vial) 5 ml STK-MED ONCE .ROUTE ; Start 07/02/17 at 08:44; Stop 07/02/17 at 08:45; Status DC Midazolam HCl (Versed) 2 mg STK-MED ONCE .ROUTE ; Start 07/02/17 at 08:45; Stop 07/02/17 at 08:46; Status DC Ephedrine Sulfate (Akovaz) 50 mg STK-MED ONCE .ROUTE ; Start 07/02/17 at 09:28; Stop 07/02/17 at 09:29; Status DC Phenylephrine HCl (Krunal-Synephrine Inj) 10 mg STK-MED ONCE .ROUTE ; Start at 09:37; Stop 07/02/17 at 09:38; Status DC Dexamethasone Sodium Phosphate (Decadron) 20 mg STK-MED ONCE .ROUTE ; Start 07/02/17 at 09:37; Stop 07/02/17 at 09:38; Status DC Ondansetron HCl (Zofran) 4 mg STK-MED ONCE .ROUTE ; Start 07/02/17 at 09:37; Stop 07/02/17 at 09:38; Status DC Sevoflurane (Ultane) 15 ml STK-MED ONCE IH ; Start 07/02/17 at 09:53; Stop 07/02 at 09:54; Status DC Zolpidem Tartrate (Ambien) 5 mg QHS PO Last administered on 07/06/17 22:24; Start 07/02/17 at 21:00 Acetaminophen (Tylenol) 650 mg PRN Q6HRS PRN PO FEVER Last administered on 07/02 23:18; Start 07/02/17 at 15:45 Ondansetron HCl (Zofran) 4 mg PRN Q6HRS PRN IV NAUSEA/VOMITING; Start 07/02/17 at 15:45 Morphine Sulfate 2 mg PRN Q2HR PRN IV PAIN; Start 07/02/17 at 15:45 Tramadol HCl (Ultram) 50 mg PRN Q6HRS PRN PO MILD PAIN; Start 07/02/17 at 15:45 Hydralazine HCl (Apresoline Inj) 10 mg PRN Q4HRS PRN IVP ELEVATED BP, SEE COMMENTS; Start 07/02/17 at 15:45 Docusate Sodium (Colace) 100 mg PRN DAILY PRN PO CONSTIPATION; Start 07/02/17 at 15:45 Insulin Aspart (NovoLOG) 0-9 UNITS TIDWMEALS SQ Last administered on 17:30; Start 07/03/17 at 12:00 Dextrose (Dextrose 50%-Water Syringe) 12.5 gm PRN Q15MIN PRN IV SEE COMMENTS; Start 07/03/17 at 09:00 Magnesium Sulfate/ Dextrose 50 ml @ 25 mls/hr PRN DAILY PRN IV for Mag < 1.7 on am labs; Start 07/03/17 at 09:15 Clindamycin Phosphate (Cleocin 900mg Premix) 900 mg STK-MED ONCE IV ; Start 07/02/17 at 08:00; Stop 07/03/17 at 09:11; Status DC Insulin Aspart (NovoLOG) 5 units 1X ONCE SQ Last administered on 07/03/17 09: 46; Start 07/03/17 at 09:30; Stop 07/03/17 at 09:31; Status DC Potassium Chloride (Klor-Con) 20 meq BIDWMEALS PO Last administered on 08:25; Start 07/03/17 at 17:00 Ciprofloxacin/ Dextrose 200 ml @ 200 mls/hr DAILY IV ; Start 07/03/17 at 14:00 ; Stop 07/03/17 at 14:38; Status DC Ciprofloxacin/ Dextrose 200 ml @ 200 mls/hr Q18H IV ; Start 07/04/17 at 09:00 ; Stop 07/04/17 at 11:51; Status DC Ciprofloxacin/ Dextrose 200 ml @ 200 mls/hr 1X ONCE IV Last administered on 07/03/17 16:24; Start 07/03/17 at 15:30; Stop 07/04/17 at 11:51; Status DC Magnesium Sulfate/ Dextrose 50 ml @ 25 mls/hr 1X ONCE IV Last administered on 07/04/17 11:41; Start 07/04/17 at 10:30; Stop 07/04/17 at 12:29; Status DC Ertapenem 0.5 gm/ Sodium Chloride 50 ml @ 100 mls/hr DAILY08 IV ; Start at 08:00; Status UNV Meropenem (Merrem) 500 mg Q24H IVP Last administered on 07/07/17 13:36; Start 07/04/17 at 13:00 Darbepoetin Fredi (Aranesp) 100 mcg QSA@2100 SQ Last administered on 07/05/17 22:15; Start 07/05/17 at 21:00 Lactobacillus Rhamnosus (Culturelle) 1 cap BID PO Last administered on 08:24; Start 07/06/17 at 21:00 Active Scripts Active Reported Carvedilol 25 Mg Tablet 1 Tab PO BID Coq-10 (Ubidecarenone) 100 Mg Capsule 400 Mg PO BID Krill Oil 500 mg Softgel (Krill/Om-3/Dha/Epa/Phospho/Ast) 1 Each Capsule 1 Each PO DAILY Vitamin D3 (Cholecalciferol (Vitamin D3)) 1,000 Unit Tablet 1 Tab PO DAILY Potassium Chloride 20 Meq Tablet.er 20 Meq PO BID Metoprolol Succinate ( Xl ) (Metoprolol Succinate) 25 Mg Tab.er.24h 1 Tab PO DAILY Calcium Acetate 667 Mg Tablet 1,334 Mg PO TIDWMEALS Ambien (Zolpidem Tartrate) 10 Mg Tablet 1 Tab PO QHS Humalog (Insulin Lispro) 100 Unit/1 Ml Cartridge 0 SQ Doxazosin Mesylate 4 Mg Tablet 4 Mg PO HS Nephro-Harsha Tablet (Folic Acid/Vitamin B Comp W-C) 0.8 Mg Tablet 1 Tab PO DAILY Aspir 81 (Aspirin) 81 Mg Tablet.dr 1 Tab PO DAILY Furosemide 80 Mg Tablet 80 Mg PO BID Sodium Bicarbonate 650 Mg Tablet 1 Tab PO TIDAC Artificial Tears Eye Drops (Dextran 70/Hypromellose) 15 Ml Drops 1 Drop EACHEYE BID Pravastatin Sodium 10 Mg Tablet 1 Tab PO QHS Tamsulosin Hcl 0.4 Mg Cap.er.24h 1 Cap PO DAILY Docusate Sodium 100 Mg Capsule 200 Mg PO DAILY Aranesp Syringe (Darbepoetin Fredi In Polysorbat) 60 Mcg/0.3 Ml Disp.syrin 60 Mcg SQ WEEKLY Ferrous Sulfate 325 Mg Tablet 1 Tab PO DAILY Duoneb 0.5-3(2.5) Mg/3 Ml (Albuterol/Ipratropium) 3 Ml Ampul.neb 3 Ml NEB TID Tums Ultra (Calcium Carbonate) 400 Mg Tab.chew 500 Mg PO TID Allopurinol 100 Mg Tablet 1 Tab PO DAILY Clonidine Hcl 0.2 Mg Tablet 1 Tab PO PRN TAKES ONLY IF HIS BLOOD PRESSURE IS ELEVATED Lisinopril 5 Mg Tablet 1 Tab PO HS Levemir (Insulin Detemir) 100 Unit/1 Ml Vial 20 Unit SQ HS Vitals/I & O Vital Sign - Last 24 Hours 07/06/17 07/06/17 07/06/17 07/06/17 15:00 17:26 19:00 20:16 Temp 97.4 97.9 97.4 97.9 Pulse 77 73 77 Resp 18 18 B/P (MAP) 159/83 (108) 159/83 148/48 (81) Pulse Ox 97 97 O2 Delivery Room Air Room Air Room Air 07/06/17 07/06/17 07/06/17 07/06/17 20:30 22:25 22:25 22:26 Pulse 77 77 77 B/P (MAP) 148/48 148/48 148/48 O2 Delivery Room Air 07/06/17 07/06/17 07/06/17 07/07/17 22:27 23:00 23:30 03:00 Temp 97.5 97.8 97.5 97.8 Pulse 75 77 Resp 20 17 20 18 B/P (MAP) 155/45 (81) 179/65 (103) Pulse Ox 97 99 99 96 O2 Delivery Room Air BiPAP/CPAP Room Air Room Air 07/07/17 07/07/17 07/07/17 07/07/17 07:00 07:05 07:06 08:23 Temp 97.9 97.9 Pulse 74 77 Resp 20 B/P (MAP) 218/60 (112) 175/91 (119) 175/91 Pulse Ox 97 O2 Delivery Room Air Room Air 07/07/17 07/07/17 07/07/17 08:24 08:24 11:00 Temp 97.3 97.3 Pulse 77 77 76 Resp 20 B/P (MAP) 175/91 175/91 172/98 (122) Pulse Ox 92 O2 Delivery Room Air Intake and Output 07/06/17 07/06/17 07/07/17 15:00 23:00 07:00 Intake Total 325 ml 120 ml 120 ml Output Total 300 ml 0 ml Balance 325 ml -180 ml 120 ml MARA ABEBE MD Jul 07, 2017 14:02
--- NOTE | 2017-07-07 15:08 | PDOC2 ---
CONSULT Date of Consult Date of Consult DATE: 07/07/17 TIME: 14:50 Reason for Consult Reason for Consult: Left midfoot wound dehiscence Referring Physician Referring Physician: Dr. Lee Identification/Chief Complaint Chief Complaint Nonhealing left mid foot amputation Problems: Source Source: Chart review, Patient History of Present Illness Reason for Visit: This is a 61-year-old patient seen in consultation for nonhealing left midfoot amputation on 07/02/17. Patient reports long history of progressive diabetic ulcerations to the left foot requiring 3 operative interventions culminating in the most recent midfoot debridement. Patient reports an initial necrotic central foot ulceration surgery on 03/29/17. This worsened following his discharge from rehabilitation and on 05/28/17 he underwent further operative intervention. Despite attentive surgical care, the patient continues to lose tissue and presents now with large areas to the medial and lateral incision margins of exposed bone. The wound have been cultured and antibiotic therapy is appropriately directed. Review of the old chart shows arterial Doppler without significant stenosis. Decreased waveforms are noted below the knee and dampen monophasic dorsalis pedis waveform was described. Past Medical History Cardiovascular: CAD, HTN, PR Pulmonary: COPD Renal/: Chronic renal failure Endocrine: Diabetes Past Surgical History Past Surgical History: CABG, Other (left foot surgeries 3), No pertinent history Family History Family History: Hypertension Social History No ALCOHOL: none Drugs: None Lives: with Family Current Medications Current Medications Current Medications Ondansetron HCl (Zofran) 4 mg PRN Q6HRS PRN IV NAUSEA/VOMITING; Start 07/02/17 at 07:00; Stop 07/03/17 at 06:59; Status DC Fentanyl Citrate (Fentanyl 2ml Vial) 25 mcg PRN Q5MIN PRN IV MILD PAIN; Start 07/02/17 at 07:00; Stop 07/03/17 at 06:59; Status DC Fentanyl Citrate (Fentanyl 2ml Vial) 50 mcg PRN Q5MIN PRN IV MODERATE PAIN; Start 07/02/17 at 07:00; Stop 07/03/17 at 06:59; Status DC Morphine Sulfate 1 mg PRN Q10MIN PRN IV SEVERE PAIN; Start 07/02/17 at 07:00; Stop 07/03/17 at 06:59; Status DC Ringer's Solution 1,000 ml @ 30 mls/hr Q24H IV ; Start 07/02/17 at 07:00; Stop 07/02/17 at 18:59; Status DC Lidocaine HCl (Xylocaine-Mpf 1% Vial) 2 ml PRN 1X PRN ID IV START; Start at 07:00; Stop 07/03/17 at 06:59; Status DC Hydromorphone HCl (Dilaudid) 0.5 mg PRN Q10MIN PRN IV SEV PAIN, Second choice; Start 07/02/17 at 07:00; Stop 07/03/17 at 06:59; Status DC Prochlorperazine Edisylate (Compazine) 5 mg PACU PRN PRN IV NAUSEA, MRX1; Start 07/02/17 at 07:00; Stop 07/03/17 at 06:59; Status DC Lidocaine HCl 30 ml STK-MED ONCE .ROUTE ; Start 07/02/17 at 07:13; Stop at 07:14; Status DC Bupivacaine HCl (Sensorcaine Mpf 0.5%) 30 ml STK-MED ONCE .ROUTE ; Start at 07:13; Stop 07/02/17 at 07:14; Status DC Clindamycin Phosphate 50 ml @ As Directed STK-MED ONCE IV ; Start 07/02/17 at 08 :19; Stop 07/02/17 at 08:20; Status DC Al Hydroxide/Mg Hydroxide (Mylanta Plus Xs) 30 ml PRN Q3HRS PRN PO HEARTBURN / GAS; Start 07/02/17 at 08:30 Oxycodone HCl (Roxicodone) 5 mg PRN Q3HRS PRN PO BREAKTHROUGH PAIN; Start 07/02 at 08:30 Morphine Sulfate 1 mg PRN Q1HR PRN IV PAIN; Start 07/02/17 at 08:30 Acetaminophen/ Hydrocodone Bitart (Lortab 5/325) 1 tab PRN Q4HRS PRN PO MODERATE - SEVERE PAIN Last administered on 07/06/17t 22:27; Start 07/02/17 at 08:30 Senna/Docusate Sodium (Senna Plus) 1 tab BID PO Last administered on 08:26; Start 07/02/17 at 10:00 Magnesium Hydroxide (Milk Of Magnesia) 2,400 mg PRN Q12HR PRN PO CONSTIPATION; Start 07/02/17 at 08:30 Sodium Chloride 1,000 ml @ 100 mls/hr Q10H IV Last administered on 07/02/17 08:51; Start 07/02/17 at 08:30; Stop 07/03/17 at 10:02; Status DC Allopurinol (Zyloprim) 100 mg DAILY PO Last administered on 07/07/17 08:23; Start 07/02/17 at 09:00 Aspirin (Ecotrin) 81 mg DAILY PO Last administered on 07/07/17 08:26; Start 07/02/17 at 09:00 Vitamin D (Vitamin D3) 1,000 unit DAILY PO Last administered on 07/07/17 08: 27; Start 07/02/17 at 09:00 Clonidine HCl (Catapres) 0.2 mg BID PO Last administered on 07/07/17 08:23; Start 07/02/17 at 09:00 Darbepoetin Fredi (Aranesp) 60 mcg Sa SQ ; Start 07/05/17 at 21:00; Stop at 21:00; Status DC Docusate Sodium (Colace) 200 mg DAILY PO Last administered on 07/07/17 08:25 ; Start 07/02/17 at 10:00 Doxazosin Mesylate (Cardura) 4 mg HS PO Last administered on 07/06/17 22:25; Start 07/02/17 at 21:00 Ferrous Sulfate (Feosol) 325 mg DAILYWBKFT PO Last administered on 07/07/17 08:23; Start 07/02/17 at 09:00 Vitamin B Complex/ Vitamin C (Richelle-Harsha) 1 tab DAILY PO Last administered on 08:24; Start 07/02/17 at 09:00 Furosemide (Lasix) 80 mg BID92 PO Last administered on 07/07/17 13:35; Start 07/02/17 at 09:00 Albuterol/ Ipratropium (Duoneb) 3 ml TID NEB Last administered on 07/07/17 07 :05; Start 07/02/17 at 09:00 Lisinopril (Prinivil) 5 mg HS PO Last administered on 07/06/17 22:26; Start 07/02/17 at 21:00; Stop 07/07/17 at 13:59; Status DC Metoprolol Succinate (Toprol Xl) 25 mg DAILY PO Last administered on 08:24; Start 07/02/17 at 09:00 Sodium Bicarbonate (Sodium Bicarbonate) 650 mg TIDAC PO Last administered on 12:01; Start 07/02/17 at 11:30 Tamsulosin HCl (Flomax) 0.4 mg DAILY PO Last administered on 07/07/17 08:25; Start 07/02/17 at 09:00 Calcium Acetate (Phoslo) 667 mg TIDWMEALS PO Last administered on 07/07/17 12 :01; Start 07/02/17 at 12:00 Calcium Carbonate/ Glycine (Tums) 500 mg TIDWMEALS PO Last administered on 12:01; Start 07/02/17 at 12:00 Carvedilol (Coreg) 25 mg BIDWMEALS PO Last administered on 07/07/17 08:24; Start 07/02/17 at 17:00 Insulin Detemir (Levemir) 20 units QHS SQ Last administered on 07/06/17 22:28 ; Start 07/02/17 at 21:00 Potassium Chloride (Klor-Con) 20 meq BIDWMEALS PO Last administered on 09:14; Start 07/02/17 at 10:00; Stop 07/03/17 at 10:02; Status DC Atorvastatin Calcium (Lipitor) 5 mg QHS PO Last administered on 07/06/17 22: 26; Start 07/02/17 at 21:00 Non-Formulary Medication 400 mg BID PO ; Start 07/02/17 at 09:00; Stop 07/02/17 at 10:20; Status DC Zolpidem Tartrate (Ambien) 5 mg PRN QHS PRN PO INSOMNIA; Start 07/02/17 at 10: 15 Insulin Aspart (NovoLOG) 0-5 UNITS TIDWMEALS SQ Last administered on 07/02/17 17:22; Start 07/02/17 at 12:00; Stop 07/03/17 at 08:59; Status DC Dextrose (Dextrose 50%-Water Syringe) 12.5 gm PRN Q15MIN PRN IV SEE COMMENTS; Start 07/02/17 at 08:30; Stop 07/03/17 at 14:12; Status DC Clindamycin Phosphate 50 ml @ 100 mls/hr 1X ONCE IV ; Start 07/02/17 at 08:45 ; Stop 07/02/17 at 09:03; Status DC Propofol 20 ml @ As Directed STK-MED ONCE IV ; Start 07/02/17 at 08:44; Stop at 08:45; Status DC Lidocaine HCl (Lidocaine Pf 2% Vial) 5 ml STK-MED ONCE .ROUTE ; Start 07/02/17 at 08:44; Stop 07/02/17 at 08:45; Status DC Midazolam HCl (Versed) 2 mg STK-MED ONCE .ROUTE ; Start 07/02/17 at 08:45; Stop 07/02/17 at 08:46; Status DC Ephedrine Sulfate (Akovaz) 50 mg STK-MED ONCE .ROUTE ; Start 07/02/17 at 09:28; Stop 07/02/17 at 09:29; Status DC Phenylephrine HCl (Krunal-Synephrine Inj) 10 mg STK-MED ONCE .ROUTE ; Start at 09:37; Stop 07/02/17 at 09:38; Status DC Dexamethasone Sodium Phosphate (Decadron) 20 mg STK-MED ONCE .ROUTE ; Start 07/02/17 at 09:37; Stop 07/02/17 at 09:38; Status DC Ondansetron HCl (Zofran) 4 mg STK-MED ONCE .ROUTE ; Start 07/02/17 at 09:37; Stop 07/02/17 at 09:38; Status DC Sevoflurane (Ultane) 15 ml STK-MED ONCE IH ; Start 07/02/17 at 09:53; Stop 07/02 at 09:54; Status DC Zolpidem Tartrate (Ambien) 5 mg QHS PO Last administered on 07/06/17t 22:24; Start 07/02/17 at 21:00 Acetaminophen (Tylenol) 650 mg PRN Q6HRS PRN PO FEVER Last administered on 07/02t 23:18; Start 07/02/17 at 15:45 Ondansetron HCl (Zofran) 4 mg PRN Q6HRS PRN IV NAUSEA/VOMITING; Start 07/02/17 at 15:45 Morphine Sulfate 2 mg PRN Q2HR PRN IV PAIN; Start 07/02/17 at 15:45 Tramadol HCl (Ultram) 50 mg PRN Q6HRS PRN PO MILD PAIN; Start 07/02/17 at 15:45 Hydralazine HCl (Apresoline Inj) 10 mg PRN Q4HRS PRN IVP ELEVATED BP, SEE COMMENTS; Start 07/02/17 at 15:45 Docusate Sodium (Colace) 100 mg PRN DAILY PRN PO CONSTIPATION; Start 07/02/17 at 15:45 Insulin Aspart (NovoLOG) 0-9 UNITS TIDWMEALS SQ Last administered on 17:30; Start 07/03/17 at 12:00 Dextrose (Dextrose 50%-Water Syringe) 12.5 gm PRN Q15MIN PRN IV SEE COMMENTS; Start 07/03/17 at 09:00 Magnesium Sulfate/ Dextrose 50 ml @ 25 mls/hr PRN DAILY PRN IV for Mag < 1.7 on am labs; Start 07/03/17 at 09:15 Clindamycin Phosphate (Cleocin 900mg Premix) 900 mg STK-MED ONCE IV ; Start 07/02/17 at 08:00; Stop 07/03/17 at 09:11; Status DC Insulin Aspart (NovoLOG) 5 units 1X ONCE SQ Last administered on 07/03/17 09: 46; Start 07/03/17 at 09:30; Stop 07/03/17 at 09:31; Status DC Potassium Chloride (Klor-Con) 20 meq BIDWMEALS PO Last administered on 08:25; Start 07/03/17 at 17:00 Ciprofloxacin/ Dextrose 200 ml @ 200 mls/hr DAILY IV ; Start 07/03/17 at 14:00 ; Stop 07/03/17 at 14:38; Status DC Ciprofloxacin/ Dextrose 200 ml @ 200 mls/hr Q18H IV ; Start 07/04/17 at 09:00 ; Stop 07/04/17 at 11:51; Status DC Ciprofloxacin/ Dextrose 200 ml @ 200 mls/hr 1X ONCE IV Last administered on 07/03/17 16:24; Start 07/03/17 at 15:30; Stop 07/04/17 at 11:51; Status DC Magnesium Sulfate/ Dextrose 50 ml @ 25 mls/hr 1X ONCE IV Last administered on 07/04/17 11:41; Start 07/04/17 at 10:30; Stop 07/04/17 at 12:29; Status DC Ertapenem 0.5 gm/ Sodium Chloride 50 ml @ 100 mls/hr DAILY08 IV ; Start at 08:00; Status UNV Meropenem (Merrem) 500 mg Q24H IVP Last administered on 07/07/17 13:36; Start 07/04/17 at 13:00 Darbepoetin Fredi (Aranesp) 100 mcg QSA@2100 SQ Last administered on 07/05/17 22:15; Start 07/05/17 at 21:00 Lactobacillus Rhamnosus (Culturelle) 1 cap BID PO Last administered on 08:24; Start 07/06/17 at 21:00 Lisinopril (Prinivil) 10 mg QHS PO ; Start 07/07/17 at 21:00 Active Scripts Active Reported Carvedilol 25 Mg Tablet 1 Tab PO BID Coq-10 (Ubidecarenone) 100 Mg Capsule 400 Mg PO BID Krill Oil 500 mg Softgel (Krill/Om-3/Dha/Epa/Phospho/Ast) 1 Each Capsule 1 Each PO DAILY Vitamin D3 (Cholecalciferol (Vitamin D3)) 1,000 Unit Tablet 1 Tab PO DAILY Potassium Chloride 20 Meq Tablet.er 20 Meq PO BID Metoprolol Succinate ( Xl ) (Metoprolol Succinate) 25 Mg Tab.er.24h 1 Tab PO DAILY Calcium Acetate 667 Mg Tablet 1,334 Mg PO TIDWMEALS Ambien (Zolpidem Tartrate) 10 Mg Tablet 1 Tab PO QHS Humalog (Insulin Lispro) 100 Unit/1 Ml Cartridge 0 SQ Doxazosin Mesylate 4 Mg Tablet 4 Mg PO HS Nephro-Harsha Tablet (Folic Acid/Vitamin B Comp W-C) 0.8 Mg Tablet 1 Tab PO DAILY Aspir 81 (Aspirin) 81 Mg Tablet.dr 1 Tab PO DAILY Furosemide 80 Mg Tablet 80 Mg PO BID Sodium Bicarbonate 650 Mg Tablet 1 Tab PO TIDAC Artificial Tears Eye Drops (Dextran 70/Hypromellose) 15 Ml Drops 1 Drop EACHEYE BID Pravastatin Sodium 10 Mg Tablet 1 Tab PO QHS Tamsulosin Hcl 0.4 Mg Cap.er.24h 1 Cap PO DAILY Docusate Sodium 100 Mg Capsule 200 Mg PO DAILY Aranesp Syringe (Darbepoetin Fredi In Polysorbat) 60 Mcg/0.3 Ml Disp.syrin 60 Mcg SQ WEEKLY Ferrous Sulfate 325 Mg Tablet 1 Tab PO DAILY Duoneb 0.5-3(2.5) Mg/3 Ml (Albuterol/Ipratropium) 3 Ml Ampul.neb 3 Ml NEB TID Tums Ultra (Calcium Carbonate) 400 Mg Tab.chew 500 Mg PO TID Allopurinol 100 Mg Tablet 1 Tab PO DAILY Clonidine Hcl 0.2 Mg Tablet 1 Tab PO PRN TAKES ONLY IF HIS BLOOD PRESSURE IS ELEVATED Lisinopril 5 Mg Tablet 1 Tab PO HS Levemir (Insulin Detemir) 100 Unit/1 Ml Vial 20 Unit SQ HS Allergies Allergies: Coded Allergies: Penicillins (Verified Allergy, Severe, HIVES AND ITCHING., 07/02/17) HAS TOLERATED AMOXICILLIN, ZOSYN zinc (Verified Allergy, Severe, HIVES AND ITCHING, 07/02/17) Latex, Natural Rubber (Verified Allergy, Intermediate, FOREMAN AND IRRITATES SKIN, 07/02/17) adhesive (Verified Allergy, Intermediate, FOREMAN AND IRRITATES SKIN, ) PAPER TAPE IS OK amlodipine (Verified Allergy, Intermediate, 07/02/17) capsaicin (Verified Allergy, Intermediate, 07/02/17) insulin glargine (Verified Allergy, Intermediate, 07/02/17) reports that it has zinc in it ROS General: YES: Fatigue Genitourinary: YES Other (chronic renal failure and currently receiving peritoneal dialysis) Musculoskeletal: Yes Gait Disturbance Skin: Yes Other (chronic history of diabetic ulcerations) Physical Exam General: Alert, Oriented X3, Cooperative HEENT: Atraumatic, PERRLA, EOMI, Mucous membr. moist/pink Lungs: Clear to auscultation Heart: Regular rate Abdomen: Soft Extremities: No clubbing, No cyanosis, No edema, Other (negative Homans) Skin: Other (left foot open sites at the medial and lateral extremes of previous midfoot incision. These 2 areas comprised majority of the wound. Large areas of central exposed bone are evident. Peripheral tissue does not demonstrate good granulation with the development of slough noted throughout the wound area.) Neuro: Normal speech Psych/Mental Status: Mental status NL MUSCULOSKELETAL: Not examined Vitals VITALS Vital Signs Date Time Temp Pulse Resp B/P (MAP) Pulse Ox O2 Delivery O2 Flow Rate FiO2 07/07/17 11:00 97.3 76 20 172/98 (122) 92 Room Air 97.3 Labs Labs Laboratory Tests Test 07/05/17 16:29 07/05/17 20:40 07/06/17 06:30 07/06/17 08:29 Glucose (Fingerstick) 203 mg/dL (70-99) 151 mg/dL (70-99) 131 mg/dL (70-99) White Blood Count 7.3 x10^3/uL (4.0-11.0) Red Blood Count 2.49 x10^6/uL (4.30-5.70) Hemoglobin 8.0 g/dL (13.0-17.5) Hematocrit 24.1 % (39.0-53.0) Mean Corpuscular Volume 97 fL (79-100) Mean Corpuscular Hemoglobin 32 pg (25-35) Mean Corpuscular Hemoglobin Concent 33 g/dL (31-37) Red Cell Distribution Width 18.0 % (11.5-14.5) Platelet Count 100 x10^3/uL (140-400) Neutrophils (%) (Auto) 89 % (31-73) Lymphocytes (%) (Auto) 3 % (24-48) Monocytes (%) (Auto) 5 % (0-9) Eosinophils (%) (Auto) 3 % (0-3) Basophils (%) (Auto) 1 % (0-3) Neutrophils # (Auto) 6.5 x10^3uL (1.8-7.7) Lymphocytes # (Auto) 0.2 x10^3/uL (1.0-4.8) Monocytes # (Auto) 0.3 x10^3/uL (0.0-1.1) Eosinophils # (Auto) 0.2 x10^3/uL (0.0-0.7) Basophils # (Auto) 0.0 x10^3/uL (0.0-0.2) Sodium Level 138 mmol/L (136-145) Potassium Level 4.0 mmol/L (3.5-5.1) Chloride Level 100 mmol/L (98-107) Carbon Dioxide Level 30 mmol/L (21-32) Anion Gap 8 (6-14) Blood Urea Nitrogen 76 mg/dL (8-26) Creatinine 6.6 mg/dL (0.7-1.3) Estimated GFR (Cockcroft-Gault) 8.6 Glucose Level 143 mg/dL (70-99) Calcium Level 8.3 mg/dL (8.5-10.1) Phosphorus Level 4.5 mg/dL (2.6-4.7) Magnesium Level 1.8 mg/dL (1.8-2.4) Albumin 2.1 g/dL (3.4-5.0) Test 07/06/17 12:22 07/06/17 17:15 07/06/17 21:25 07/07/17 06:00 Glucose (Fingerstick) 221 mg/dL (70-99) 257 mg/dL (70-99) 169 mg/dL (70-99) White Blood Count 6.1 x10^3/uL (4.0-11.0) Red Blood Count 2.48 x10^6/uL (4.30-5.70) Hemoglobin 7.9 g/dL (13.0-17.5) Hematocrit 24.2 % (39.0-53.0) Mean Corpuscular Volume 97 fL (79-100) Mean Corpuscular Hemoglobin 32 pg (25-35) Mean Corpuscular Hemoglobin Concent 33 g/dL (31-37) Red Cell Distribution Width 18.0 % (11.5-14.5) Platelet Count 98 x10^3/uL (140-400) Neutrophils (%) (Auto) 87 % (31-73) Lymphocytes (%) (Auto) 5 % (24-48) Monocytes (%) (Auto) 4 % (0-9) Eosinophils (%) (Auto) 4 % (0-3) Basophils (%) (Auto) 1 % (0-3) Neutrophils # (Auto) 5.3 x10^3uL (1.8-7.7) Lymphocytes # (Auto) 0.3 x10^3/uL (1.0-4.8) Monocytes # (Auto) 0.3 x10^3/uL (0.0-1.1) Eosinophils # (Auto) 0.2 x10^3/uL (0.0-0.7) Basophils # (Auto) 0.0 x10^3/uL (0.0-0.2) Sodium Level 138 mmol/L (136-145) Potassium Level 4.1 mmol/L (3.5-5.1) Chloride Level 100 mmol/L (98-107) Carbon Dioxide Level 31 mmol/L (21-32) Anion Gap 7 (6-14) Blood Urea Nitrogen 74 mg/dL (8-26) Creatinine 6.2 mg/dL (0.7-1.3) Estimated GFR (Cockcroft-Gault) 9.2 Glucose Level 110 mg/dL (70-99) Calcium Level 8.5 mg/dL (8.5-10.1) Phosphorus Level 5.0 mg/dL (2.6-4.7) Magnesium Level 1.9 mg/dL (1.8-2.4) Albumin 2.1 g/dL (3.4-5.0) Test 07/07/17 07:50 07/07/17 11:41 Glucose (Fingerstick) 107 mg/dL (70-99) 202 mg/dL (70-99) Laboratory Tests Test 07/06/17 17:15 07/06/17 21:25 07/07/17 06:00 07/07/17 07:50 Glucose (Fingerstick) 257 mg/dL (70-99) 169 mg/dL (70-99) 107 mg/dL (70-99) White Blood Count 6.1 x10^3/uL (4.0-11.0) Red Blood Count 2.48 x10^6/uL (4.30-5.70) Hemoglobin 7.9 g/dL (13.0-17.5) Hematocrit 24.2 % (39.0-53.0) Mean Corpuscular Volume 97 fL (79-100) Mean Corpuscular Hemoglobin 32 pg (25-35) Mean Corpuscular Hemoglobin Concent 33 g/dL (31-37) Red Cell Distribution Width 18.0 % (11.5-14.5) Platelet Count 98 x10^3/uL (140-400) Neutrophils (%) (Auto) 87 % (31-73) Lymphocytes (%) (Auto) 5 % (24-48) Monocytes (%) (Auto) 4 % (0-9) Eosinophils (%) (Auto) 4 % (0-3) Basophils (%) (Auto) 1 % (0-3) Neutrophils # (Auto) 5.3 x10^3uL (1.8-7.7) Lymphocytes # (Auto) 0.3 x10^3/uL (1.0-4.8) Monocytes # (Auto) 0.3 x10^3/uL (0.0-1.1) Eosinophils # (Auto) 0.2 x10^3/uL (0.0-0.7) Basophils # (Auto) 0.0 x10^3/uL (0.0-0.2) Sodium Level 138 mmol/L (136-145) Potassium Level 4.1 mmol/L (3.5-5.1) Chloride Level 100 mmol/L (98-107) Carbon Dioxide Level 31 mmol/L (21-32) Anion Gap 7 (6-14) Blood Urea Nitrogen 74 mg/dL (8-26) Creatinine 6.2 mg/dL (0.7-1.3) Estimated GFR (Cockcroft-Gault) 9.2 Glucose Level 110 mg/dL (70-99) Calcium Level 8.5 mg/dL (8.5-10.1) Phosphorus Level 5.0 mg/dL (2.6-4.7) Magnesium Level 1.9 mg/dL (1.8-2.4) Albumin 2.1 g/dL (3.4-5.0) Test 07/07/17 11:41 Glucose (Fingerstick) 202 mg/dL (70-99) Assessment/Plan Assessment/Plan Diabetic Yan 3 ulceration left forefoot with evidence of bone necrosis Unfortunately there is brandie little midfoot tissue left following necessary 3 surgical debridements. Large areas of persistent exposed bone have little chance of coverage. It is difficult to envision a scenario that will allow preservation of this left lower extremity. Continue negative pressure wound therapy and close surgical attention of intervening slough development. We have elected to proceed with transcutaneous oximetry assessment to ascertain potential tissue viability and success of further amputation. This is dictated under separate heading. A fairly significant amount time was spent in serious discussion with the patient regarding the low likelihood of healing and the need for lower leg amputation as previously described by Dr. Lee. EDDI MASTERS DO Jul 07, 2017 15:08
--- NOTE | 2017-07-07 15:21 | PDOC ---
TCOM NOTE 07/07/17 Transcutaneous oximetry assessment is performed to the left lower extremity following surgical wound dehiscence of left midfoot amputation. This is on postop day 5. Assessment is performed to determine tissue viability, potential for healing and and success of further amputation. Consultation is carried out and has been performed prior to transcutaneous oximetry assessment. At the time of testing the patient's vital signs were stable, respirations were nondistressed, the left lower extremity was without significant edema and no significant skin changes were identified to potential sites of lead placement. Rolan electrodes are placed as follows: #1 is medial dorsal aspect of the left foot #2 is lateral aspect of left hindfoot #3 is medial supramalleolar #4 is lateral supramalleolar #5 is medial proximal lower leg #6 is lateral proximal lower leg #7 is left posterior calf potential flap site Breathing room air leads 1 through 7 values were as follows: 9 mm of mercury, 48 mm of mercury, 47 mm of mercury, 57 mmHg, 55 mmHg, 53 mmHg, 65 mmHg Breathing 100% oxygen at 1 hiram in leads 1 through 7 values were as follows: 32 mm of mercury, 105 mmHg, 70 mmHg, 94 mmHg, 57 mmHg, 66 mmHg, 97 mmHg Baseline tissue oxygenation at 1 hiram breathing room air demonstrated adequate tissue oxygenation in all leads except lead #1 to the distal dorsal aspect of the foot. This lead is in closest proximity to the ulcer sites. It demonstrates critical ischemia. It is compatible with previously described dampened, monophasic waveforms at the dorsalis pedis. All other readings are in excess of 40 mm of mercury suggesting successful higher levels of amputation. Tissue oxygenation breathing 100 percent oxygen at 1 hiram does not demonstrate prominent readings in excess of 100 mm of mercury. This creates is somewhat doubtful role for hyperbaric oxygen although in-chamber readings are are much more specific and sensitive for response to hyperbaric oxygen therapy. EDDI MASTERS DO Jul 07, 2017 15:21
[2017-07-07] MEDS: ZOLPIDEM 5 MG TABLET. PO SCH (20:28)
[2017-07-07] MEDS: DOXAZOSIN MESYLATE 4 MG TABLET. PO SCH (20:59)
[2017-07-07] MEDS ORDERED: LISINOPRIL 10 MG TABLET PO SCH (21:00)
[2017-07-07] MEDS ORDERED: POLYETHYLENE GLYCOL 3350 17 GM PACKET. PO PRN (21:00)
[2017-07-07] MEDS: ATORVASTATIN CALCIUM 10 MG TABLET. PO SCH (21:00)
[2017-07-07] MEDS: INSULIN DETEMIR 300 UNITS/3 ML INSULN.PEN. SQ SCH (21:09)
[2017-07-08] VITALS (7 sets, daily range): BP systolic 132–165; BP diastolic 35–75
[2017-07-08 06:50] LABS: BASO % 1 % (0-3); EOS % 4 % (0-3); HEMATOCRIT 25.5 % (39.0-53.0); HEMOGLOBIN 8.5 g/dL (13.0-17.5); LYMPH # 0.3 x10^3/uL (1.0-4.8); LYMPH % 4 % (24-48); MEAN CORPUSCULAR HEMOGLOBIN 32 pg (25-35); MEAN CORPUSCULAR HGB CONC 33 g/dL (31-37); MEAN CORPUSCULAR VOLUME 97 fL (79-100); MONO % 4 % (0-9); NEUT % 88 % (31-73); PLATELET COUNT 119 x10^3/uL (140-400); RED BLOOD COUNT 2.61 x10^6/uL (4.30-5.70); RED CELL DISTRIBUTION WIDTH 18.5 % (11.5-14.5); WHITE BLOOD COUNT 7.6 x10^3/uL (4.0-11.0)
[2017-07-08 07:03] LABS: ALBUMIN 2.3 g/dL (3.4-5.0); CALCIUM 8.5 mg/dL (8.5-10.1); GFR 9.6; PHOSPHORUS 5.4 mg/dL (2.6-4.7)
[2017-07-08] MEDS: INSULIN ASPART 300 UNITS/3 ML INSULN.PEN SQ SCH ×3 (08:00→17:13)
[2017-07-08] MEDS: cloNIDine HCL 0.2 MG TABLET PO SCH ×2 (08:07→21:26)
[2017-07-08] MEDS: POTASSIUM CHLORIDE 20 MEQ TABLET.ER. PO SCH ×2 (08:07→17:08)
[2017-07-08] MEDS: ASPIRIN ENTERIC COATED 81 MG TABLET.DR. PO SCH (08:07)
[2017-07-08] MEDS: METOPROLOL SUCC 24HR ER 25 MG TAB.ER.24H. PO SCH (08:07)
[2017-07-08] MEDS: CHOLECALCIFEROL (VITAMIN D3) 1,000 UNIT TABLET PO SCH (08:08)
[2017-07-08] MEDS: SENNOSIDES/DOCUSATE 8.6/50MG TABLET. PO SCH ×2 (08:08→21:18)
[2017-07-08] MEDS: FERROUS SULFATE 325 MG TABLET. PO SCH (08:08)
[2017-07-08] MEDS: ALLOPURINOL 100 MG TABLET. PO SCH (08:08)
[2017-07-08] MEDS: TAMSULOSIN 0.4 MG CAP.ER.24H. PO SCH (08:08)
[2017-07-08] MEDS: LACTOBACILLUS RHAMNOSUS GG 1 CAPSULE. PO SCH ×2 (08:09→21:17)
[2017-07-08] MEDS: FOLIC/VIT B COMP W-C (RENAL) TABLET. PO SCH (08:09)
[2017-07-08] MEDS: CARVEDILOL 12.5 MG TABLET. PO SCH ×2 (08:09→17:09)
[2017-07-08] MEDS: DOCUSATE SODIUM 100 MG CAPSULE. PO SCH (08:09)
[2017-07-08] MEDS: CALCIUM CARBONATE 500 MG TAB.CHEW PO SCH ×3 (08:10→17:08)
[2017-07-08] MEDS: CALCIUM ACETATE 667 MG CAPSULE PO SCH ×3 (08:10→17:08)
[2017-07-08] MEDS: SODIUM BICARBONATE 650 MG TABLET. PO SCH ×3 (08:10→17:08)
[2017-07-08] MEDS: FUROSEMIDE 80 MG TABLET. PO SCH ×2 (08:10→12:45)
[2017-07-08] MEDS: IPRATRPIUM/ALBUTEROL 0.5/2.5MG 3 ML NEBU. NEB SCH ×3 (08:22→20:03)
--- NOTE | 2017-07-08 11:34 | PDOC ---
Renal-Progress Notes Subjective Notes Notes NONE History of Present Illness Hx of present illness STABLE Vitals Vitals Vital Signs Date Time Temp Pulse Resp B/P (MAP) Pulse Ox O2 Delivery O2 Flow Rate FiO2 07/08/17 10:48 98.1 73 18 165/75 (105) 98 Room Air 98.1 Weight Weight [ ] I.O. Intake and Output Intake and Output 07/08/17 06:59 Intake Total 600 ml Output Total 400 ml Balance 200 ml Intake Oral 600 ml Output Urine Total 400 ml # Bowel Movements 1 Labs Labs Laboratory Tests Test 07/07/17 11:41 07/07/17 17:23 07/07/17 20:35 07/08/17 06:40 Glucose (Fingerstick) 202 mg/dL (70-99) 195 mg/dL (70-99) 169 mg/dL (70-99) White Blood Count 7.6 x10^3/uL (4.0-11.0) Red Blood Count 2.61 x10^6/uL (4.30-5.70) Hemoglobin 8.5 g/dL (13.0-17.5) Hematocrit 25.5 % (39.0-53.0) Mean Corpuscular Volume 97 fL (79-100) Mean Corpuscular Hemoglobin 32 pg (25-35) Mean Corpuscular Hemoglobin Concent 33 g/dL (31-37) Red Cell Distribution Width 18.5 % (11.5-14.5) Platelet Count 119 x10^3/uL (140-400) Neutrophils (%) (Auto) 88 % (31-73) Lymphocytes (%) (Auto) 4 % (24-48) Monocytes (%) (Auto) 4 % (0-9) Eosinophils (%) (Auto) 4 % (0-3) Basophils (%) (Auto) 1 % (0-3) Neutrophils # (Auto) 6.7 x10^3uL (1.8-7.7) Lymphocytes # (Auto) 0.3 x10^3/uL (1.0-4.8) Monocytes # (Auto) 0.3 x10^3/uL (0.0-1.1) Eosinophils # (Auto) 0.3 x10^3/uL (0.0-0.7) Basophils # (Auto) 0.0 x10^3/uL (0.0-0.2) Sodium Level 139 mmol/L (136-145) Potassium Level 4.0 mmol/L (3.5-5.1) Chloride Level 100 mmol/L (98-107) Carbon Dioxide Level 29 mmol/L (21-32) Anion Gap 10 (6-14) Blood Urea Nitrogen 72 mg/dL (8-26) Creatinine 6.0 mg/dL (0.7-1.3) Estimated GFR (Cockcroft-Gault) 9.6 Glucose Level 126 mg/dL (70-99) Calcium Level 8.5 mg/dL (8.5-10.1) Phosphorus Level 5.4 mg/dL (2.6-4.7) Magnesium Level 1.9 mg/dL (1.8-2.4) Albumin 2.3 g/dL (3.4-5.0) Test 07/08/17 07:16 Glucose (Fingerstick) 115 mg/dL (70-99) Micro Micro Microbiology 07/02/17 Anaerobic/Aerobic Culture - Final, Complete 07/02/17 Anaerobic Culture Result 1 (BELKIS) - Final, Complete 07/02/17 Aerobic Culture - Final, Complete 07/02/17 Aerobic Culture Result 1 (BELKIS) - Final, Complete Review of Systems Constitutional: yes: malaise, weakness, alert, oriented Ears/Nose/Throat: Yes: no symptom reported Eyes: Yes: no symptom reported Pulmonary: Yes no symptom reported Cardiovascular: Yes no symptom reported Gastrointestional: Yes: constipation Genitourinary: Yes: no symptom reported Musculoskeletal: Yes: muscle stiffness, muscle atrophy Skin: Yes no symptom reported Psychiatric/Neurological: Yes: no symptom reported Endocrine: Yes: no symptom reported Physical Exam General Appearance: no apparent distress Skin: warm Respiratory: bilateral CTA Heart: S1S2 Abdomen: soft, bowel sounds present Genitourinary: bladder flat Extremities: pulses present Neurology: alert, oriented Assessment Assessment IMP DM II HTN ANEMIA ESRD LEFT FOOT WOUND PLAN CONT CAPD AWAITING PLACEMENT AT REHAB SUPPORTIVE CARE SYED DOTY MD Jul 08, 2017 11:34
[2017-07-08] MEDS: MEROPENEM IV Push 500 MG VIAL. IVP SCH (12:48)
--- NOTE | 2017-07-08 14:45 | PDOC ---
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 ortho will take pt to OR for further amputation tmr. thanks for asking for consult History of Present Illness History of Present Illness Pt is a pleasant 61 year old male who presents with a klebsiella wound infection of the left foot. He is on meropenem for abx. He is currently on wound vac. Pt is also on dialysis and has a PICC line. Pt was seen at bedside resting comfortably in NAD. Pt is being followed by orthopedics, nephrology, and ID. Will continue abx, wound care, and dialysis. Will continue to monitor. ROS: no fever, chills, sob or chest pain feels ok high BP left foot wound has wound vac on, looks bad as per wound care Vitals Vitals Vital Signs Date Time Temp Pulse Resp B/P (MAP) Pulse Ox O2 Delivery O2 Flow Rate FiO2 07/08/17 11:45 98.1 73 165/75 (105) 98 Room Air 98.1 07/08/17 10:48 18 Physical Exam General: Alert, Oriented X3, Cooperative Heart: Regular rate Lungs: Clear Abdomen: Soft Extremities: No clubbing, No cyanosis, No edema, Other (negative Homans) Skin: Other (left foot open sites at the medial and lateral extremes of previous midfoot incision. These 2 areas comprised majority of the wound. Large areas of central exposed bone are evident. Peripheral tissue does not demonstrate good granulation with the development of slough noted throughout the wound area.) Labs LABS Laboratory Tests Test 07/07/17 17:23 07/07/17 20:35 07/08/17 06:40 07/08/17 07:16 Glucose (Fingerstick) 195 mg/dL (70-99) 169 mg/dL (70-99) 115 mg/dL (70-99) White Blood Count 7.6 x10^3/uL (4.0-11.0) Red Blood Count 2.61 x10^6/uL (4.30-5.70) Hemoglobin 8.5 g/dL (13.0-17.5) Hematocrit 25.5 % (39.0-53.0) Mean Corpuscular Volume 97 fL (79-100) Mean Corpuscular Hemoglobin 32 pg (25-35) Mean Corpuscular Hemoglobin Concent 33 g/dL (31-37) Red Cell Distribution Width 18.5 % (11.5-14.5) Platelet Count 119 x10^3/uL (140-400) Neutrophils (%) (Auto) 88 % (31-73) Lymphocytes (%) (Auto) 4 % (24-48) Monocytes (%) (Auto) 4 % (0-9) Eosinophils (%) (Auto) 4 % (0-3) Basophils (%) (Auto) 1 % (0-3) Neutrophils # (Auto) 6.7 x10^3uL (1.8-7.7) Lymphocytes # (Auto) 0.3 x10^3/uL (1.0-4.8) Monocytes # (Auto) 0.3 x10^3/uL (0.0-1.1) Eosinophils # (Auto) 0.3 x10^3/uL (0.0-0.7) Basophils # (Auto) 0.0 x10^3/uL (0.0-0.2) Sodium Level 139 mmol/L (136-145) Potassium Level 4.0 mmol/L (3.5-5.1) Chloride Level 100 mmol/L (98-107) Carbon Dioxide Level 29 mmol/L (21-32) Anion Gap 10 (6-14) Blood Urea Nitrogen 72 mg/dL (8-26) Creatinine 6.0 mg/dL (0.7-1.3) Estimated GFR (Cockcroft-Gault) 9.6 Glucose Level 126 mg/dL (70-99) Calcium Level 8.5 mg/dL (8.5-10.1) Phosphorus Level 5.4 mg/dL (2.6-4.7) Magnesium Level 1.9 mg/dL (1.8-2.4) Albumin 2.3 g/dL (3.4-5.0) Test 07/08/17 11:23 Glucose (Fingerstick) 181 mg/dL (70-99) Comment Review of Relevant I have reviewed the following items den (where applicable) has been applied. Labs Laboratory Tests Test 07/06/17 17:15 07/06/17 21:25 07/07/17 06:00 07/07/17 07:50 Glucose (Fingerstick) 257 mg/dL (70-99) 169 mg/dL (70-99) 107 mg/dL (70-99) White Blood Count 6.1 x10^3/uL (4.0-11.0) Red Blood Count 2.48 x10^6/uL (4.30-5.70) Hemoglobin 7.9 g/dL (13.0-17.5) Hematocrit 24.2 % (39.0-53.0) Mean Corpuscular Volume 97 fL (79-100) Mean Corpuscular Hemoglobin 32 pg (25-35) Mean Corpuscular Hemoglobin Concent 33 g/dL (31-37) Red Cell Distribution Width 18.0 % (11.5-14.5) Platelet Count 98 x10^3/uL (140-400) Neutrophils (%) (Auto) 87 % (31-73) Lymphocytes (%) (Auto) 5 % (24-48) Monocytes (%) (Auto) 4 % (0-9) Eosinophils (%) (Auto) 4 % (0-3) Basophils (%) (Auto) 1 % (0-3) Neutrophils # (Auto) 5.3 x10^3uL (1.8-7.7) Lymphocytes # (Auto) 0.3 x10^3/uL (1.0-4.8) Monocytes # (Auto) 0.3 x10^3/uL (0.0-1.1) Eosinophils # (Auto) 0.2 x10^3/uL (0.0-0.7) Basophils # (Auto) 0.0 x10^3/uL (0.0-0.2) Sodium Level 138 mmol/L (136-145) Potassium Level 4.1 mmol/L (3.5-5.1) Chloride Level 100 mmol/L (98-107) Carbon Dioxide Level 31 mmol/L (21-32) Anion Gap 7 (6-14) Blood Urea Nitrogen 74 mg/dL (8-26) Creatinine 6.2 mg/dL (0.7-1.3) Estimated GFR (Cockcroft-Gault) 9.2 Glucose Level 110 mg/dL (70-99) Calcium Level 8.5 mg/dL (8.5-10.1) Phosphorus Level 5.0 mg/dL (2.6-4.7) Magnesium Level 1.9 mg/dL (1.8-2.4) Albumin 2.1 g/dL (3.4-5.0) Test 07/07/17 11:41 07/07/17 17:23 07/07/17 20:35 07/08/17 06:40 Glucose (Fingerstick) 202 mg/dL (70-99) 195 mg/dL (70-99) 169 mg/dL (70-99) White Blood Count 7.6 x10^3/uL (4.0-11.0) Red Blood Count 2.61 x10^6/uL (4.30-5.70) Hemoglobin 8.5 g/dL (13.0-17.5) Hematocrit 25.5 % (39.0-53.0) Mean Corpuscular Volume 97 fL (79-100) Mean Corpuscular Hemoglobin 32 pg (25-35) Mean Corpuscular Hemoglobin Concent 33 g/dL (31-37) Red Cell Distribution Width 18.5 % (11.5-14.5) Platelet Count 119 x10^3/uL (140-400) Neutrophils (%) (Auto) 88 % (31-73) Lymphocytes (%) (Auto) 4 % (24-48) Monocytes (%) (Auto) 4 % (0-9) Eosinophils (%) (Auto) 4 % (0-3) Basophils (%) (Auto) 1 % (0-3) Neutrophils # (Auto) 6.7 x10^3uL (1.8-7.7) Lymphocytes # (Auto) 0.3 x10^3/uL (1.0-4.8) Monocytes # (Auto) 0.3 x10^3/uL (0.0-1.1) Eosinophils # (Auto) 0.3 x10^3/uL (0.0-0.7) Basophils # (Auto) 0.0 x10^3/uL (0.0-0.2) Sodium Level 139 mmol/L (136-145) Potassium Level 4.0 mmol/L (3.5-5.1) Chloride Level 100 mmol/L (98-107) Carbon Dioxide Level 29 mmol/L (21-32) Anion Gap 10 (6-14) Blood Urea Nitrogen 72 mg/dL (8-26) Creatinine 6.0 mg/dL (0.7-1.3) Estimated GFR (Cockcroft-Gault) 9.6 Glucose Level 126 mg/dL (70-99) Calcium Level 8.5 mg/dL (8.5-10.1) Phosphorus Level 5.4 mg/dL (2.6-4.7) Magnesium Level 1.9 mg/dL (1.8-2.4) Albumin 2.3 g/dL (3.4-5.0) Test 07/08/17 07:16 07/08/17 11:23 Glucose (Fingerstick) 115 mg/dL (70-99) 181 mg/dL (70-99) Laboratory Tests Test 07/07/17 17:23 07/07/17 20:35 07/08/17 06:40 07/08/17 07:16 Glucose (Fingerstick) 195 mg/dL (70-99) 169 mg/dL (70-99) 115 mg/dL (70-99) White Blood Count 7.6 x10^3/uL (4.0-11.0) Red Blood Count 2.61 x10^6/uL (4.30-5.70) Hemoglobin 8.5 g/dL (13.0-17.5) Hematocrit 25.5 % (39.0-53.0) Mean Corpuscular Volume 97 fL (79-100) Mean Corpuscular Hemoglobin 32 pg (25-35) Mean Corpuscular Hemoglobin Concent 33 g/dL (31-37) Red Cell Distribution Width 18.5 % (11.5-14.5) Platelet Count 119 x10^3/uL (140-400) Neutrophils (%) (Auto) 88 % (31-73) Lymphocytes (%) (Auto) 4 % (24-48) Monocytes (%) (Auto) 4 % (0-9) Eosinophils (%) (Auto) 4 % (0-3) Basophils (%) (Auto) 1 % (0-3) Neutrophils # (Auto) 6.7 x10^3uL (1.8-7.7) Lymphocytes # (Auto) 0.3 x10^3/uL (1.0-4.8) Monocytes # (Auto) 0.3 x10^3/uL (0.0-1.1) Eosinophils # (Auto) 0.3 x10^3/uL (0.0-0.7) Basophils # (Auto) 0.0 x10^3/uL (0.0-0.2) Sodium Level 139 mmol/L (136-145) Potassium Level 4.0 mmol/L (3.5-5.1) Chloride Level 100 mmol/L (98-107) Carbon Dioxide Level 29 mmol/L (21-32) Anion Gap 10 (6-14) Blood Urea Nitrogen 72 mg/dL (8-26) Creatinine 6.0 mg/dL (0.7-1.3) Estimated GFR (Cockcroft-Gault) 9.6 Glucose Level 126 mg/dL (70-99) Calcium Level 8.5 mg/dL (8.5-10.1) Phosphorus Level 5.4 mg/dL (2.6-4.7) Magnesium Level 1.9 mg/dL (1.8-2.4) Albumin 2.3 g/dL (3.4-5.0) Test 07/08/17 11:23 Glucose (Fingerstick) 181 mg/dL (70-99) Microbiology 07/02/17 Anaerobic/Aerobic Culture - Final, Complete 07/02/17 Anaerobic Culture Result 1 (BELKIS) - Final, Complete 07/02/17 Aerobic Culture - Final, Complete 07/02/17 Aerobic Culture Result 1 (BELKIS) - Final, Complete Medications Current Medications Ondansetron HCl (Zofran) 4 mg PRN Q6HRS PRN IV NAUSEA/VOMITING; Start 07/02/17 at 07:00; Stop 07/03/17 at 06:59; Status DC Fentanyl Citrate (Fentanyl 2ml Vial) 25 mcg PRN Q5MIN PRN IV MILD PAIN; Start 07/02/17 at 07:00; Stop 07/03/17 at 06:59; Status DC Fentanyl Citrate (Fentanyl 2ml Vial) 50 mcg PRN Q5MIN PRN IV MODERATE PAIN; Start 07/02/17 at 07:00; Stop 07/03/17 at 06:59; Status DC Morphine Sulfate 1 mg PRN Q10MIN PRN IV SEVERE PAIN; Start 07/02/17 at 07:00; Stop 07/03/17 at 06:59; Status DC Ringer's Solution 1,000 ml @ 30 mls/hr Q24H IV ; Start 07/02/17 at 07:00; Stop 07/02/17 at 18:59; Status DC Lidocaine HCl (Xylocaine-Mpf 1% Vial) 2 ml PRN 1X PRN ID IV START; Start at 07:00; Stop 07/03/17 at 06:59; Status DC Hydromorphone HCl (Dilaudid) 0.5 mg PRN Q10MIN PRN IV SEV PAIN, Second choice; Start 07/02/17 at 07:00; Stop 07/03/17 at 06:59; Status DC Prochlorperazine Edisylate (Compazine) 5 mg PACU PRN PRN IV NAUSEA, MRX1; Start 07/02/17 at 07:00; Stop 07/03/17 at 06:59; Status DC Lidocaine HCl 30 ml STK-MED ONCE .ROUTE ; Start 07/02/17 at 07:13; Stop at 07:14; Status DC Bupivacaine HCl (Sensorcaine Mpf 0.5%) 30 ml STK-MED ONCE .ROUTE ; Start at 07:13; Stop 07/02/17 at 07:14; Status DC Clindamycin Phosphate 50 ml @ As Directed STK-MED ONCE IV ; Start 07/02/17 at 08 :19; Stop 07/02/17 at 08:20; Status DC Al Hydroxide/Mg Hydroxide (Mylanta Plus Xs) 30 ml PRN Q3HRS PRN PO HEARTBURN / GAS; Start 07/02/17 at 08:30 Oxycodone HCl (Roxicodone) 5 mg PRN Q3HRS PRN PO BREAKTHROUGH PAIN; Start 07/02 at 08:30 Morphine Sulfate 1 mg PRN Q1HR PRN IV PAIN; Start 07/02/17 at 08:30 Acetaminophen/ Hydrocodone Bitart (Lortab 5/325) 1 tab PRN Q4HRS PRN PO MODERATE - SEVERE PAIN Last administered on 07/06/17 22:27; Start 07/02/17 at 08:30 Senna/Docusate Sodium (Senna Plus) 1 tab BID PO Last administered on 08:08; Start 07/02/17 at 10:00 Magnesium Hydroxide (Milk Of Magnesia) 2,400 mg PRN Q12HR PRN PO CONSTIPATION; Start 07/02/17 at 08:30 Sodium Chloride 1,000 ml @ 100 mls/hr Q10H IV Last administered on 07/02/17 08:51; Start 07/02/17 at 08:30; Stop 07/03/17 at 10:02; Status DC Allopurinol (Zyloprim) 100 mg DAILY PO Last administered on 07/08/17 08:08; Start 07/02/17 at 09:00 Aspirin (Ecotrin) 81 mg DAILY PO Last administered on 07/08/17 08:07; Start 07/02/17 at 09:00 Vitamin D (Vitamin D3) 1,000 unit DAILY PO Last administered on 07/08/17 08: 08; Start 07/02/17 at 09:00 Clonidine HCl (Catapres) 0.2 mg BID PO Last administered on 07/08/17 08:07; Start 07/02/17 at 09:00 Darbepoetin Fredi (Aranesp) 60 mcg Sa SQ ; Start 07/05/17 at 21:00; Stop at 21:00; Status DC Docusate Sodium (Colace) 200 mg DAILY PO Last administered on 07/08/17 08:09 ; Start 07/02/17 at 10:00 Doxazosin Mesylate (Cardura) 4 mg HS PO Last administered on 07/07/17 20:59; Start 07/02/17 at 21:00 Ferrous Sulfate (Feosol) 325 mg DAILYWBKFT PO Last administered on 07/08/17 08:08; Start 07/02/17 at 09:00 Vitamin B Complex/ Vitamin C (Richelle-Harsha) 1 tab DAILY PO Last administered on 08:09; Start 07/02/17 at 09:00 Furosemide (Lasix) 80 mg BID92 PO Last administered on 07/08/17 12:45; Start 07/02/17 at 09:00 Albuterol/ Ipratropium (Duoneb) 3 ml TID NEB Last administered on 07/08/17 08 :22; Start 07/02/17 at 09:00 Lisinopril (Prinivil) 5 mg HS PO Last administered on 07/06/17 22:26; Start 07/02/17 at 21:00; Stop 07/07/17 at 13:59; Status DC Metoprolol Succinate (Toprol Xl) 25 mg DAILY PO Last administered on 08:07; Start 07/02/17 at 09:00 Sodium Bicarbonate (Sodium Bicarbonate) 650 mg TIDAC PO Last administered on 12:45; Start 07/02/17 at 11:30 Tamsulosin HCl (Flomax) 0.4 mg DAILY PO Last administered on 07/08/17 08:08; Start 07/02/17 at 09:00 Calcium Acetate (Phoslo) 667 mg TIDWMEALS PO Last administered on 07/08/17 12 :45; Start 07/02/17 at 12:00 Calcium Carbonate/ Glycine (Tums) 500 mg TIDWMEALS PO Last administered on 12:46; Start 07/02/17 at 12:00 Carvedilol (Coreg) 25 mg BIDWMEALS PO Last administered on 07/08/17 08:09; Start 07/02/17 at 17:00 Insulin Detemir (Levemir) 20 units QHS SQ Last administered on 07/07/17 21:09 ; Start 07/02/17 at 21:00 Potassium Chloride (Klor-Con) 20 meq BIDWMEALS PO Last administered on 09:14; Start 07/02/17 at 10:00; Stop 07/03/17 at 10:02; Status DC Atorvastatin Calcium (Lipitor) 5 mg QHS PO Last administered on 07/07/17t 21: 00; Start 07/02/17 at 21:00 Non-Formulary Medication 400 mg BID PO ; Start 07/02/17 at 09:00; Stop 07/02/17 at 10:20; Status DC Zolpidem Tartrate (Ambien) 5 mg PRN QHS PRN PO INSOMNIA; Start 07/02/17 at 10: 15 Insulin Aspart (NovoLOG) 0-5 UNITS TIDWMEALS SQ Last administered on 07/02/17t 17:22; Start 07/02/17 at 12:00; Stop 07/03/17 at 08:59; Status DC Dextrose (Dextrose 50%-Water Syringe) 12.5 gm PRN Q15MIN PRN IV SEE COMMENTS; Start 07/02/17 at 08:30; Stop 07/03/17 at 14:12; Status DC Clindamycin Phosphate 50 ml @ 100 mls/hr 1X ONCE IV ; Start 07/02/17 at 08:45 ; Stop 07/02/17 at 09:03; Status DC Propofol 20 ml @ As Directed STK-MED ONCE IV ; Start 07/02/17 at 08:44; Stop at 08:45; Status DC Lidocaine HCl (Lidocaine Pf 2% Vial) 5 ml STK-MED ONCE .ROUTE ; Start 07/02/17 at 08:44; Stop 07/02/17 at 08:45; Status DC Midazolam HCl (Versed) 2 mg STK-MED ONCE .ROUTE ; Start 07/02/17 at 08:45; Stop 07/02/17 at 08:46; Status DC Ephedrine Sulfate (Akovaz) 50 mg STK-MED ONCE .ROUTE ; Start 07/02/17 at 09:28; Stop 07/02/17 at 09:29; Status DC Phenylephrine HCl (Krunal-Synephrine Inj) 10 mg STK-MED ONCE .ROUTE ; Start at 09:37; Stop 07/02/17 at 09:38; Status DC Dexamethasone Sodium Phosphate (Decadron) 20 mg STK-MED ONCE .ROUTE ; Start 07/02/17 at 09:37; Stop 07/02/17 at 09:38; Status DC Ondansetron HCl (Zofran) 4 mg STK-MED ONCE .ROUTE ; Start 07/02/17 at 09:37; Stop 07/02/17 at 09:38; Status DC Sevoflurane (Ultane) 15 ml STK-MED ONCE IH ; Start 07/02/17 at 09:53; Stop 07/02 at 09:54; Status DC Zolpidem Tartrate (Ambien) 5 mg QHS PO Last administered on 07/06/17 22:24; Start 07/02/17 at 21:00 Acetaminophen (Tylenol) 650 mg PRN Q6HRS PRN PO FEVER Last administered on 07/02 23:18; Start 07/02/17 at 15:45 Ondansetron HCl (Zofran) 4 mg PRN Q6HRS PRN IV NAUSEA/VOMITING; Start 07/02/17 at 15:45 Morphine Sulfate 2 mg PRN Q2HR PRN IV PAIN; Start 07/02/17 at 15:45 Tramadol HCl (Ultram) 50 mg PRN Q6HRS PRN PO MILD PAIN; Start 07/02/17 at 15:45 Hydralazine HCl (Apresoline Inj) 10 mg PRN Q4HRS PRN IVP ELEVATED BP, SEE COMMENTS; Start 07/02/17 at 15:45 Docusate Sodium (Colace) 100 mg PRN DAILY PRN PO CONSTIPATION; Start 07/02/17 at 15:45 Insulin Aspart (NovoLOG) 0-9 UNITS TIDWMEALS SQ Last administered on 12:58; Start 07/03/17 at 12:00 Dextrose (Dextrose 50%-Water Syringe) 12.5 gm PRN Q15MIN PRN IV SEE COMMENTS; Start 07/03/17 at 09:00 Magnesium Sulfate/ Dextrose 50 ml @ 25 mls/hr PRN DAILY PRN IV for Mag < 1.7 on am labs; Start 07/03/17 at 09:15 Clindamycin Phosphate (Cleocin 900mg Premix) 900 mg STK-MED ONCE IV ; Start 07/02/17 at 08:00; Stop 07/03/17 at 09:11; Status DC Insulin Aspart (NovoLOG) 5 units 1X ONCE SQ Last administered on 07/03/17 09: 46; Start 07/03/17 at 09:30; Stop 07/03/17 at 09:31; Status DC Potassium Chloride (Klor-Con) 20 meq BIDWMEALS PO Last administered on 08:07; Start 07/03/17 at 17:00 Ciprofloxacin/ Dextrose 200 ml @ 200 mls/hr DAILY IV ; Start 07/03/17 at 14:00 ; Stop 07/03/17 at 14:38; Status DC Ciprofloxacin/ Dextrose 200 ml @ 200 mls/hr Q18H IV ; Start 07/04/17 at 09:00 ; Stop 07/04/17 at 11:51; Status DC Ciprofloxacin/ Dextrose 200 ml @ 200 mls/hr 1X ONCE IV Last administered on 07/03/17 16:24; Start 07/03/17 at 15:30; Stop 07/04/17 at 11:51; Status DC Magnesium Sulfate/ Dextrose 50 ml @ 25 mls/hr 1X ONCE IV Last administered on 07/04/17 11:41; Start 07/04/17 at 10:30; Stop 07/04/17 at 12:29; Status DC Ertapenem 0.5 gm/ Sodium Chloride 50 ml @ 100 mls/hr DAILY08 IV ; Start at 08:00; Status UNV Meropenem (Merrem) 500 mg Q24H IVP Last administered on 07/08/17 12:48; Start 07/04/17 at 13:00 Darbepoetin Fredi (Aranesp) 100 mcg QSA@2100 SQ Last administered on 07/05/17 22:15; Start 07/05/17 at 21:00 Lactobacillus Rhamnosus (Culturelle) 1 cap BID PO Last administered on 08:09; Start 07/06/17 at 21:00 Lisinopril (Prinivil) 10 mg QHS PO Last administered on 07/07/17 20:59; Start 07/07/17 at 21:00 Polyethylene Glycol (miraLAX PACKET) 17 gm PRN DAILY PRN PO CONSTIPATION Last administered on 07/07/17 21:15; Start 07/07/17 at 21:00 Active Scripts Active Reported Carvedilol 25 Mg Tablet 1 Tab PO BID Coq-10 (Ubidecarenone) 100 Mg Capsule 400 Mg PO BID Krill Oil 500 mg Softgel (Krill/Om-3/Dha/Epa/Phospho/Ast) 1 Each Capsule 1 Each PO DAILY Vitamin D3 (Cholecalciferol (Vitamin D3)) 1,000 Unit Tablet 1 Tab PO DAILY Potassium Chloride 20 Meq Tablet.er 20 Meq PO BID Metoprolol Succinate ( Xl ) (Metoprolol Succinate) 25 Mg Tab.er.24h 1 Tab PO DAILY Calcium Acetate 667 Mg Tablet 1,334 Mg PO TIDWMEALS Ambien (Zolpidem Tartrate) 10 Mg Tablet 1 Tab PO QHS Humalog (Insulin Lispro) 100 Unit/1 Ml Cartridge 0 SQ Doxazosin Mesylate 4 Mg Tablet 4 Mg PO HS Nephro-Harsha Tablet (Folic Acid/Vitamin B Comp W-C) 0.8 Mg Tablet 1 Tab PO DAILY Aspir 81 (Aspirin) 81 Mg Tablet.dr 1 Tab PO DAILY Furosemide 80 Mg Tablet 80 Mg PO BID Sodium Bicarbonate 650 Mg Tablet 1 Tab PO TIDAC Artificial Tears Eye Drops (Dextran 70/Hypromellose) 15 Ml Drops 1 Drop EACHEYE BID Pravastatin Sodium 10 Mg Tablet 1 Tab PO QHS Tamsulosin Hcl 0.4 Mg Cap.er.24h 1 Cap PO DAILY Docusate Sodium 100 Mg Capsule 200 Mg PO DAILY Aranesp Syringe (Darbepoetin Fredi In Polysorbat) 60 Mcg/0.3 Ml Disp.syrin 60 Mcg SQ WEEKLY Ferrous Sulfate 325 Mg Tablet 1 Tab PO DAILY Duoneb 0.5-3(2.5) Mg/3 Ml (Albuterol/Ipratropium) 3 Ml Ampul.neb 3 Ml NEB TID Tums Ultra (Calcium Carbonate) 400 Mg Tab.chew 500 Mg PO TID Allopurinol 100 Mg Tablet 1 Tab PO DAILY Clonidine Hcl 0.2 Mg Tablet 1 Tab PO PRN TAKES ONLY IF HIS BLOOD PRESSURE IS ELEVATED Lisinopril 5 Mg Tablet 1 Tab PO HS Levemir (Insulin Detemir) 100 Unit/1 Ml Vial 20 Unit SQ HS Vitals/I & O Vital Sign - Last 24 Hours 07/07/17 07/07/17 07/07/17 07/07/17 15:00 15:53 17:00 17:40 Temp 97.5 97.5 97.5 97.5 Pulse 72 72 72 Resp 20 B/P (MAP) 156/44 (81) 156/44 (81) 156/44 Pulse Ox 98 98 O2 Delivery Room Air Room Air Room Air 07/07/17 07/07/17 07/07/17 07/07/17 19:15 19:30 19:50 19:55 Temp 97.9 97.9 97.9 97.9 Pulse 76 74 Resp 16 16 B/P (MAP) 190/43 (92) 157/41 (79) Pulse Ox 97 97 100 O2 Delivery Room Air Room Air Room Air Room Air 07/07/17 07/07/17 07/07/17 07/07/17 20:55 20:59 20:59 20:59 Pulse 74 74 74 74 B/P (MAP) 157/41 (79) 157/41 157/41 157/41 07/07/17 07/08/17 07/08/17 07/08/17 23:23 02:43 07:00 07:35 Temp 97.5 98.2 98.0 97.5 98.2 98.0 Pulse 74 74 76 Resp 16 16 18 B/P (MAP) 153/46 (81) 132/68 (89) 153/49 (83) Pulse Ox 95 96 97 O2 Delivery Room Air Room Air Room Air 07/08/17 07/08/17 07/08/17 07/08/17 08:07 08:07 08:09 08:35 Temp 98.0 98.0 Pulse 76 76 76 76 B/P (MAP) 153/49 153/49 153/49 153/49 (83) Pulse Ox 97 O2 Delivery Room Air 07/08/17 07/08/17 10:48 11:45 Temp 98.1 98.1 98.1 98.1 Pulse 73 73 Resp 18 B/P (MAP) 165/75 (105) 165/75 (105) Pulse Ox 98 98 O2 Delivery Room Air Room Air Intake and Output 07/07/17 07/07/17 07/08/17 15:00 23:00 07:00 Intake Total 300 ml 300 ml Output Total 400 ml Balance 300 ml -100 ml MARA ABEBE MD Jul 08, 2017 14:45
[2017-07-08] MEDS: ATORVASTATIN CALCIUM 10 MG TABLET. PO SCH (21:00)
[2017-07-08] MEDS: ZOLPIDEM 5 MG TABLET. PO SCH (21:19)
[2017-07-08] MEDS: DOXAZOSIN MESYLATE 4 MG TABLET. PO SCH (21:25)
[2017-07-08] MEDS: LISINOPRIL 20 MG TABLET PO SCH (21:27)
[2017-07-08] MEDS: INSULIN DETEMIR 300 UNITS/3 ML INSULN.PEN. SQ SCH (21:46)
[2017-07-09] VITALS (9 sets, daily range): BP systolic 131–169; BP diastolic 31–89
[2017-07-09 06:32] LABS: ALBUMIN 2.1 g/dL (3.4-5.0); CALCIUM 8.2 mg/dL (8.5-10.1); CREATININE 6.1 mg/dL (0.7-1.3); GFR 9.4; PHOSPHORUS 5.2 mg/dL (2.6-4.7); POTASSIUM 4.2 mmol/L (3.5-5.1)
[2017-07-09] MEDS ORDERED: LIDOCAINE 1% PF 2 ML VIAL. ID PRN (07:00)
[2017-07-09] MEDS ORDERED: fentaNYL PF VIAL 100 MCG/2 ML VIAL IV PRN ×2 (07:00)
[2017-07-09] MEDS ORDERED: ONDANSETRON PF 4 MG/2 ML VIAL. IV PRN (07:00)
[2017-07-09] MEDS ORDERED: MORPHINE SULFATE 2 MG/ML DISP.SYRIN. IV PRN (07:00)
[2017-07-09] MEDS ORDERED: IV RINGERS,LACTATED 1000ML 1,000 ML IV SCH (07:00)
[2017-07-09] MEDS ORDERED: HYDROmorphone 2 MG/ML VIAL IV PRN (07:00)
[2017-07-09] MEDS ORDERED: PROCHLORPERAZINE 10 MG/2 ML VIAL. IV PRN (07:00)
[2017-07-09] MEDS: IPRATRPIUM/ALBUTEROL 0.5/2.5MG 3 ML NEBU. NEB SCH ×3 (07:12→18:56)
[2017-07-09 07:23] LABS: BASO % 1 % (0-3); EOS % 4 % (0-3); HEMATOCRIT 24.9 % (39.0-53.0); HEMOGLOBIN 8.2 g/dL (13.0-17.5); LYMPH # 0.3 x10^3/uL (1.0-4.8); LYMPH % 5 % (24-48); MEAN CORPUSCULAR HEMOGLOBIN 33 pg (25-35); MEAN CORPUSCULAR HGB CONC 33 g/dL (31-37); MEAN CORPUSCULAR VOLUME 98 fL (79-100); MONO % 5 % (0-9); NEUT % 86 % (31-73); PLATELET COUNT 111 x10^3/uL (140-400); RED BLOOD COUNT 2.54 x10^6/uL (4.30-5.70); RED CELL DISTRIBUTION WIDTH 18.4 % (11.5-14.5); WHITE BLOOD COUNT 6.4 x10^3/uL (4.0-11.0)
[2017-07-09] MEDS: SODIUM BICARBONATE 650 MG TABLET. PO SCH ×3 (07:30→17:29)
[2017-07-09] MEDS: CALCIUM CARBONATE 500 MG TAB.CHEW PO SCH ×3 (08:00→17:29)
[2017-07-09] MEDS: POTASSIUM CHLORIDE 20 MEQ TABLET.ER. PO SCH ×2 (08:00→17:29)
[2017-07-09] MEDS: CALCIUM ACETATE 667 MG CAPSULE PO SCH ×3 (08:00→17:29)
[2017-07-09] MEDS: CARVEDILOL 12.5 MG TABLET. PO SCH ×2 (08:00→17:29)
[2017-07-09] MEDS: FERROUS SULFATE 325 MG TABLET. PO SCH (08:00)
[2017-07-09] MEDS: INSULIN ASPART 300 UNITS/3 ML INSULN.PEN SQ SCH ×3 (08:00→17:38)
[2017-07-09] MEDS: cloNIDine HCL 0.2 MG TABLET PO SCH ×2 (08:02→21:04)
[2017-07-09] MEDS: TAMSULOSIN 0.4 MG CAP.ER.24H. PO SCH (08:02)
[2017-07-09] MEDS: DOCUSATE SODIUM 100 MG CAPSULE. PO SCH ×2 (08:02→12:16)
[2017-07-09] MEDS: ASPIRIN ENTERIC COATED 81 MG TABLET.DR. PO SCH (08:02)
[2017-07-09] MEDS: LACTOBACILLUS RHAMNOSUS GG 1 CAPSULE. PO SCH ×2 (08:02→21:02)
[2017-07-09] MEDS: FUROSEMIDE 80 MG TABLET. PO SCH ×2 (08:03→14:00)
[2017-07-09] MEDS: CHOLECALCIFEROL (VITAMIN D3) 1,000 UNIT TABLET PO SCH (08:03)
[2017-07-09] MEDS: METOPROLOL SUCC 24HR ER 25 MG TAB.ER.24H. PO SCH ×2 (08:03→09:58)
[2017-07-09] MEDS: FOLIC/VIT B COMP W-C (RENAL) TABLET. PO SCH (08:03)
[2017-07-09] MEDS: SENNOSIDES/DOCUSATE 8.6/50MG TABLET. PO SCH ×2 (08:03→21:02)
[2017-07-09] MEDS: ALLOPURINOL 100 MG TABLET. PO SCH (08:03)
--- NOTE | 2017-07-09 08:55 | PDOC ---
Infectious Disease Note Subjective Subjective Comfortable, denies pain No N/v ROS ROS GEN: Denies fevers, chills, sweats HEENT: Denies blurred vision, sore throat CV: Denies chest pain RESP: Denies shortness of air, cough NEURO: Denies confusion, dizziness MSK: Denies weakness, joint pain/swelling Vital Sign Vital Signs Vital Signs Date Time Temp Pulse Resp B/P (MAP) Pulse Ox O2 Delivery O2 Flow Rate FiO2 07/09/17 07:12 100 Room Air 07/09/17 07:00 97.9 76 18 142/31 (68) 97.9 Physical Exam PHYSICAL EXAM GENERAL: NAD, Alert HEENT: PERRL, OC/OP - clear NECK: Supple, no JVD, no LN LUNGS: Clear HEART: S1S2, no gallop, + murmur ABD: Soft, NT, no organomegaly, no rebound EXT: No edema, no cyanosis. Vac to Left foot SUPERIOR COURT JUSTICE: Alert, oriented x 3, no focal neurologic deficit SKIN: No rash IV: RUE - PICC clean - mild ecchymosis LUE fistula Labs Lab Laboratory Tests Test 07/08/17 11:23 07/08/17 16:41 07/08/17 21:34 07/09/17 06:00 Glucose (Fingerstick) 181 mg/dL (70-99) 170 mg/dL (70-99) 178 mg/dL (70-99) White Blood Count 6.4 x10^3/uL (4.0-11.0) Red Blood Count 2.54 x10^6/uL (4.30-5.70) Hemoglobin 8.2 g/dL (13.0-17.5) Hematocrit 24.9 % (39.0-53.0) Mean Corpuscular Volume 98 fL (79-100) Mean Corpuscular Hemoglobin 33 pg (25-35) Mean Corpuscular Hemoglobin Concent 33 g/dL (31-37) Red Cell Distribution Width 18.4 % (11.5-14.5) Platelet Count 111 x10^3/uL (140-400) Neutrophils (%) (Auto) 86 % (31-73) Lymphocytes (%) (Auto) 5 % (24-48) Monocytes (%) (Auto) 5 % (0-9) Eosinophils (%) (Auto) 4 % (0-3) Basophils (%) (Auto) 1 % (0-3) Neutrophils # (Auto) 5.5 x10^3uL (1.8-7.7) Lymphocytes # (Auto) 0.3 x10^3/uL (1.0-4.8) Monocytes # (Auto) 0.3 x10^3/uL (0.0-1.1) Eosinophils # (Auto) 0.2 x10^3/uL (0.0-0.7) Basophils # (Auto) 0.0 x10^3/uL (0.0-0.2) Sodium Level 140 mmol/L (136-145) Potassium Level 4.2 mmol/L (3.5-5.1) Chloride Level 101 mmol/L (98-107) Carbon Dioxide Level 32 mmol/L (21-32) Anion Gap 7 (6-14) Blood Urea Nitrogen 72 mg/dL (8-26) Creatinine 6.1 mg/dL (0.7-1.3) Estimated GFR (Cockcroft-Gault) 9.4 Glucose Level 116 mg/dL (70-99) Calcium Level 8.2 mg/dL (8.5-10.1) Phosphorus Level 5.2 mg/dL (2.6-4.7) Albumin 2.1 g/dL (3.4-5.0) Test 07/09/17 07:56 Glucose (Fingerstick) 102 mg/dL (70-99) Objective Assessment 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 Lee. ESBL/MDR Klebsiella (S carbapenems & levofloxacin; I cipro otherwise resistant) - Has opted for amputation End-stage renal disease, on peritoneal dialysis. Diabetes mellitus 2 with neuropathy. Coronary artery disease. 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 Acute on chronic anemia. History of recurrent gastrointestinal bleed. History of gastric ulcer, status post clip and epinephrine injection. History of chronic thrombocytopenia. PENICILLIN ALLERGY, has had amoxicillin and Zosyn in the past, tolerated it Plan Plan of Care Continue renally dosed Meropenem Awaiting surgery Hopefully can d/c abx post surgery D/w NEELAM SANTANA MD Jul 09, 2017 08:55
--- NOTE | 2017-07-09 10:56 | PDOC ---
Renal-Progress Notes Subjective Notes Notes NONE History of Present Illness Hx of present illness STABLE Vitals Vitals Vital Signs Date Time Temp Pulse Resp B/P (MAP) Pulse Ox O2 Delivery O2 Flow Rate FiO2 07/09/17 09:58 72 155/49 07/09/17 07:12 100 Room Air 07/09/17 07:00 97.9 18 97.9 Weight Weight [ ] I.O. Intake and Output Intake and Output 07/09/17 07:00 Intake Total 690 ml Balance 690 ml Intake Oral 690 ml Labs Labs Laboratory Tests Test 07/08/17 11:23 07/08/17 16:41 07/08/17 21:34 07/09/17 06:00 Glucose (Fingerstick) 181 mg/dL (70-99) 170 mg/dL (70-99) 178 mg/dL (70-99) White Blood Count 6.4 x10^3/uL (4.0-11.0) Red Blood Count 2.54 x10^6/uL (4.30-5.70) Hemoglobin 8.2 g/dL (13.0-17.5) Hematocrit 24.9 % (39.0-53.0) Mean Corpuscular Volume 98 fL (79-100) Mean Corpuscular Hemoglobin 33 pg (25-35) Mean Corpuscular Hemoglobin Concent 33 g/dL (31-37) Red Cell Distribution Width 18.4 % (11.5-14.5) Platelet Count 111 x10^3/uL (140-400) Neutrophils (%) (Auto) 86 % (31-73) Lymphocytes (%) (Auto) 5 % (24-48) Monocytes (%) (Auto) 5 % (0-9) Eosinophils (%) (Auto) 4 % (0-3) Basophils (%) (Auto) 1 % (0-3) Neutrophils # (Auto) 5.5 x10^3uL (1.8-7.7) Lymphocytes # (Auto) 0.3 x10^3/uL (1.0-4.8) Monocytes # (Auto) 0.3 x10^3/uL (0.0-1.1) Eosinophils # (Auto) 0.2 x10^3/uL (0.0-0.7) Basophils # (Auto) 0.0 x10^3/uL (0.0-0.2) Sodium Level 140 mmol/L (136-145) Potassium Level 4.2 mmol/L (3.5-5.1) Chloride Level 101 mmol/L (98-107) Carbon Dioxide Level 32 mmol/L (21-32) Anion Gap 7 (6-14) Blood Urea Nitrogen 72 mg/dL (8-26) Creatinine 6.1 mg/dL (0.7-1.3) Estimated GFR (Cockcroft-Gault) 9.4 Glucose Level 116 mg/dL (70-99) Calcium Level 8.2 mg/dL (8.5-10.1) Phosphorus Level 5.2 mg/dL (2.6-4.7) Albumin 2.1 g/dL (3.4-5.0) Test 07/09/17 07:56 Glucose (Fingerstick) 102 mg/dL (70-99) Micro Micro Microbiology 07/02/17 Anaerobic/Aerobic Culture - Final, Complete 07/02/17 Anaerobic Culture Result 1 (BELKIS) - Final, Complete 07/02/17 Aerobic Culture - Final, Complete 07/02/17 Aerobic Culture Result 1 (BELKIS) - Final, Complete Review of Systems Constitutional: yes: malaise, weakness, alert, oriented Ears/Nose/Throat: Yes: no symptom reported Eyes: Yes: no symptom reported Pulmonary: Yes no symptom reported Cardiovascular: Yes no symptom reported Gastrointestional: Yes: constipation Genitourinary: Yes: no symptom reported Musculoskeletal: Yes: muscle stiffness, muscle atrophy Skin: Yes no symptom reported Psychiatric/Neurological: Yes: no symptom reported Endocrine: Yes: no symptom reported Physical Exam General Appearance: no apparent distress Skin: warm Respiratory: bilateral CTA Heart: S1S2 Abdomen: soft, bowel sounds present Genitourinary: bladder flat Extremities: pulses present Neurology: alert, oriented Assessment Assessment IMP DM II HTN ANEMIA ESRD LEFT FOOT WOUND PLAN CONT CAPD OR TODAY AWAITING PLACEMENT AT [facility]PPORT[facility]ARE SYED DOTY MD Jul 09, 2017 10:56
[2017-07-09] MEDS: MEROPENEM IV Push 500 MG VIAL. IVP SCH (12:22)
--- NOTE | 2017-07-09 12:54 | PDOC ---
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 He is on meropenem for abx. He is currently on wound vac. Pt is also on dialysis and has a PICC line. Pt was seen at bedside resting comfortably in NAD. Pt is being followed by orthopedics, nephrology, and ID. Will continue abx, wound care, and dialysis. Will continue to monitor. ROS: no fever, chills, sob or chest pain feels ok high BP left foot wound has wound vac on, looks bad as per wound care Vitals Vitals Vital Signs Date Time Temp Pulse Resp B/P (MAP) Pulse Ox O2 Delivery O2 Flow Rate FiO2 07/09/17 12:42 Room Air 07/09/17 11:00 98.1 74 18 131/55 (80) 97 98.1 Physical Exam General: Alert, Oriented X3, Cooperative Heart: Regular rate Lungs: Clear Abdomen: Soft Extremities: No clubbing, No cyanosis, No edema, Other (negative Homans) Skin: Other (left foot open sites at the medial and lateral extremes of previous midfoot incision. These 2 areas comprised majority of the wound. Large areas of central exposed bone are evident. Peripheral tissue does not demonstrate good granulation with the development of slough noted throughout the wound area.) Labs LABS Laboratory Tests Test 07/08/17 16:41 11/14/17 21:34 07/09/17 06:00 07/09/17 07:56 Glucose (Fingerstick) 170 mg/dL (70-99) 178 mg/dL (70-99) 102 mg/dL (70-99) White Blood Count 6.4 x10^3/uL (4.0-11.0) Red Blood Count 2.54 x10^6/uL (4.30-5.70) Hemoglobin 8.2 g/dL (13.0-17.5) Hematocrit 24.9 % (39.0-53.0) Mean Corpuscular Volume 98 fL (79-100) Mean Corpuscular Hemoglobin 33 pg (25-35) Mean Corpuscular Hemoglobin Concent 33 g/dL (31-37) Red Cell Distribution Width 18.4 % (11.5-14.5) Platelet Count 111 x10^3/uL (140-400) Neutrophils (%) (Auto) 86 % (31-73) Lymphocytes (%) (Auto) 5 % (24-48) Monocytes (%) (Auto) 5 % (0-9) Eosinophils (%) (Auto) 4 % (0-3) Basophils (%) (Auto) 1 % (0-3) Neutrophils # (Auto) 5.5 x10^3uL (1.8-7.7) Lymphocytes # (Auto) 0.3 x10^3/uL (1.0-4.8) Monocytes # (Auto) 0.3 x10^3/uL (0.0-1.1) Eosinophils # (Auto) 0.2 x10^3/uL (0.0-0.7) Basophils # (Auto) 0.0 x10^3/uL (0.0-0.2) Sodium Level 140 mmol/L (136-145) Potassium Level 4.2 mmol/L (3.5-5.1) Chloride Level 101 mmol/L (98-107) Carbon Dioxide Level 32 mmol/L (21-32) Anion Gap 7 (6-14) Blood Urea Nitrogen 72 mg/dL (8-26) Creatinine 6.1 mg/dL (0.7-1.3) Estimated GFR (Cockcroft-Gault) 9.4 Glucose Level 116 mg/dL (70-99) Calcium Level 8.2 mg/dL (8.5-10.1) Phosphorus Level 5.2 mg/dL (2.6-4.7) Albumin 2.1 g/dL (3.4-5.0) Test 07/09/17 11:21 Glucose (Fingerstick) 146 mg/dL (70-99) Comment Review of Relevant I have reviewed the following items den (where applicable) has been applied. Labs Laboratory Tests Test 07/07/17 17:23 07/07/17 20:35 07/08/17 06:40 07/08/17 07:16 Glucose (Fingerstick) 195 mg/dL (70-99) 169 mg/dL (70-99) 115 mg/dL (70-99) White Blood Count 7.6 x10^3/uL (4.0-11.0) Red Blood Count 2.61 x10^6/uL (4.30-5.70) Hemoglobin 8.5 g/dL (13.0-17.5) Hematocrit 25.5 % (39.0-53.0) Mean Corpuscular Volume 97 fL (79-100) Mean Corpuscular Hemoglobin 32 pg (25-35) Mean Corpuscular Hemoglobin Concent 33 g/dL (31-37) Red Cell Distribution Width 18.5 % (11.5-14.5) Platelet Count 119 x10^3/uL (140-400) Neutrophils (%) (Auto) 88 % (31-73) Lymphocytes (%) (Auto) 4 % (24-48) Monocytes (%) (Auto) 4 % (0-9) Eosinophils (%) (Auto) 4 % (0-3) Basophils (%) (Auto) 1 % (0-3) Neutrophils # (Auto) 6.7 x10^3uL (1.8-7.7) Lymphocytes # (Auto) 0.3 x10^3/uL (1.0-4.8) Monocytes # (Auto) 0.3 x10^3/uL (0.0-1.1) Eosinophils # (Auto) 0.3 x10^3/uL (0.0-0.7) Basophils # (Auto) 0.0 x10^3/uL (0.0-0.2) Sodium Level 139 mmol/L (136-145) Potassium Level 4.0 mmol/L (3.5-5.1) Chloride Level 100 mmol/L (98-107) Carbon Dioxide Level 29 mmol/L (21-32) Anion Gap 10 (6-14) Blood Urea Nitrogen 72 mg/dL (8-26) Creatinine 6.0 mg/dL (0.7-1.3) Estimated GFR (Cockcroft-Gault) 9.6 Glucose Level 126 mg/dL (70-99) Calcium Level 8.5 mg/dL (8.5-10.1) Phosphorus Level 5.4 mg/dL (2.6-4.7) Magnesium Level 1.9 mg/dL (1.8-2.4) Albumin 2.3 g/dL (3.4-5.0) Test 07/08/17 11:23 07/08/17 16:41 07/08/17 21:34 07/09/17 06:00 Glucose (Fingerstick) 181 mg/dL (70-99) 170 mg/dL (70-99) 178 mg/dL (70-99) White Blood Count 6.4 x10^3/uL (4.0-11.0) Red Blood Count 2.54 x10^6/uL (4.30-5.70) Hemoglobin 8.2 g/dL (13.0-17.5) Hematocrit 24.9 % (39.0-53.0) Mean Corpuscular Volume 98 fL (79-100) Mean Corpuscular Hemoglobin 33 pg (25-35) Mean Corpuscular Hemoglobin Concent 33 g/dL (31-37) Red Cell Distribution Width 18.4 % (11.5-14.5) Platelet Count 111 x10^3/uL (140-400) Neutrophils (%) (Auto) 86 % (31-73) Lymphocytes (%) (Auto) 5 % (24-48) Monocytes (%) (Auto) 5 % (0-9) Eosinophils (%) (Auto) 4 % (0-3) Basophils (%) (Auto) 1 % (0-3) Neutrophils # (Auto) 5.5 x10^3uL (1.8-7.7) Lymphocytes # (Auto) 0.3 x10^3/uL (1.0-4.8) Monocytes # (Auto) 0.3 x10^3/uL (0.0-1.1) Eosinophils # (Auto) 0.2 x10^3/uL (0.0-0.7) Basophils # (Auto) 0.0 x10^3/uL (0.0-0.2) Sodium Level 140 mmol/L (136-145) Potassium Level 4.2 mmol/L (3.5-5.1) Chloride Level 101 mmol/L (98-107) Carbon Dioxide Level 32 mmol/L (21-32) Anion Gap 7 (6-14) Blood Urea Nitrogen 72 mg/dL (8-26) Creatinine 6.1 mg/dL (0.7-1.3) Estimated GFR (Cockcroft-Gault) 9.4 Glucose Level 116 mg/dL (70-99) Calcium Level 8.2 mg/dL (8.5-10.1) Phosphorus Level 5.2 mg/dL (2.6-4.7) Albumin 2.1 g/dL (3.4-5.0) Test 07/09/17 07:56 07/09/17 11:21 Glucose (Fingerstick) 102 mg/dL (70-99) 146 mg/dL (70-99) Laboratory Tests Test 07/08/17 16:41 07/08/17 21:34 07/09/17 06:00 07/09/17 07:56 Glucose (Fingerstick) 170 mg/dL (70-99) 178 mg/dL (70-99) 102 mg/dL (70-99) White Blood Count 6.4 x10^3/uL (4.0-11.0) Red Blood Count 2.54 x10^6/uL (4.30-5.70) Hemoglobin 8.2 g/dL (13.0-17.5) Hematocrit 24.9 % (39.0-53.0) Mean Corpuscular Volume 98 fL (79-100) Mean Corpuscular Hemoglobin 33 pg (25-35) Mean Corpuscular Hemoglobin Concent 33 g/dL (31-37) Red Cell Distribution Width 18.4 % (11.5-14.5) Platelet Count 111 x10^3/uL (140-400) Neutrophils (%) (Auto) 86 % (31-73) Lymphocytes (%) (Auto) 5 % (24-48) Monocytes (%) (Auto) 5 % (0-9) Eosinophils (%) (Auto) 4 % (0-3) Basophils (%) (Auto) 1 % (0-3) Neutrophils # (Auto) 5.5 x10^3uL (1.8-7.7) Lymphocytes # (Auto) 0.3 x10^3/uL (1.0-4.8) Monocytes # (Auto) 0.3 x10^3/uL (0.0-1.1) Eosinophils # (Auto) 0.2 x10^3/uL (0.0-0.7) Basophils # (Auto) 0.0 x10^3/uL (0.0-0.2) Sodium Level 140 mmol/L (136-145) Potassium Level 4.2 mmol/L (3.5-5.1) Chloride Level 101 mmol/L (98-107) Carbon Dioxide Level 32 mmol/L (21-32) Anion Gap 7 (6-14) Blood Urea Nitrogen 72 mg/dL (8-26) Creatinine 6.1 mg/dL (0.7-1.3) Estimated GFR (Cockcroft-Gault) 9.4 Glucose Level 116 mg/dL (70-99) Calcium Level 8.2 mg/dL (8.5-10.1) Phosphorus Level 5.2 mg/dL (2.6-4.7) Albumin 2.1 g/dL (3.4-5.0) Test 07/09/17 11:21 Glucose (Fingerstick) 146 mg/dL (70-99) Microbiology 07/02/17 Anaerobic/Aerobic Culture - Final, Complete 07/02/17 Anaerobic Culture Result 1 (BELKIS) - Final, Complete 07/02/17 Aerobic Culture - Final, Complete 07/02/17 Aerobic Culture Result 1 (BELKIS) - Final, Complete Medications Current Medications Ondansetron HCl (Zofran) 4 mg PRN Q6HRS PRN IV NAUSEA/VOMITING; Start 07/02/17 at 07:00; Stop 07/03/17 at 06:59; Status DC Fentanyl Citrate (Fentanyl 2ml Vial) 25 mcg PRN Q5MIN PRN IV MILD PAIN; Start 07/02/17 at 07:00; Stop 07/03/17 at 06:59; Status DC Fentanyl Citrate (Fentanyl 2ml Vial) 50 mcg PRN Q5MIN PRN IV MODERATE PAIN; Start 07/02/17 at 07:00; Stop 07/03/17 at 06:59; Status DC Morphine Sulfate 1 mg PRN Q10MIN PRN IV SEVERE PAIN; Start 07/02/17 at 07:00; Stop 07/03/17 at 06:59; Status DC Ringer's Solution 1,000 ml @ 30 mls/hr Q24H IV ; Start 07/02/17 at 07:00; Stop 07/02/17 at 18:59; Status DC Lidocaine HCl (Xylocaine-Mpf 1% Vial) 2 ml PRN 1X PRN ID IV START; Start at 07:00; Stop 07/03/17 at 06:59; Status DC Hydromorphone HCl (Dilaudid) 0.5 mg PRN Q10MIN PRN IV SEV PAIN, Second choice; Start 07/02/17 at 07:00; Stop 07/03/17 at 06:59; Status DC Prochlorperazine Edisylate (Compazine) 5 mg PACU PRN PRN IV NAUSEA, MRX1; Start 07/02/17 at 07:00; Stop 07/03/17 at 06:59; Status DC Lidocaine HCl 30 ml STK-MED ONCE .ROUTE ; Start 07/02/17 at 07:13; Stop at 07:14; Status DC Bupivacaine HCl (Sensorcaine Mpf 0.5%) 30 ml STK-MED ONCE .ROUTE ; Start at 07:13; Stop 07/02/17 at 07:14; Status DC Clindamycin Phosphate 50 ml @ As Directed STK-MED ONCE IV ; Start 07/02/17 at 08 :19; Stop 07/02/17 at 08:20; Status DC Al Hydroxide/Mg Hydroxide (Mylanta Plus Xs) 30 ml PRN Q3HRS PRN PO HEARTBURN / GAS; Start 07/02/17 at 08:30 Oxycodone HCl (Roxicodone) 5 mg PRN Q3HRS PRN PO BREAKTHROUGH PAIN; Start 07/02 at 08:30 Morphine Sulfate 1 mg PRN Q1HR PRN IV PAIN; Start 07/02/17 at 08:30 Acetaminophen/ Hydrocodone Bitart (Lortab 5/325) 1 tab PRN Q4HRS PRN PO MODERATE - SEVERE PAIN Last administered on 07/06/17 22:27; Start 07/02/17 at 08:30 Senna/Docusate Sodium (Senna Plus) 1 tab BID PO Last administered on 21:18; Start 07/02/17 at 10:00 Magnesium Hydroxide (Milk Of Magnesia) 2,400 mg PRN Q12HR PRN PO CONSTIPATION; Start 07/02/17 at 08:30 Sodium Chloride 1,000 ml @ 100 mls/hr Q10H IV Last administered on 07/02/17 08:51; Start 07/02/17 at 08:30; Stop 07/03/17 at 10:02; Status DC Allopurinol (Zyloprim) 100 mg DAILY PO Last administered on 07/08/17 08:08; Start 07/02/17 at 09:00 Aspirin (Ecotrin) 81 mg DAILY PO Last administered on 07/08/17 08:07; Start 07/02/17 at 09:00 Vitamin D (Vitamin D3) 1,000 unit DAILY PO Last administered on 07/08/17 08: 08; Start 07/02/17 at 09:00 Clonidine HCl (Catapres) 0.2 mg BID PO Last administered on 07/08/17 21:26; Start 07/02/17 at 09:00 Darbepoetin Fredi (Aranesp) 60 mcg Sa SQ ; Start 07/05/17 at 21:00; Stop at 21:00; Status DC Docusate Sodium (Colace) 200 mg DAILY PO Last administered on 07/09/17 12:16 ; Start 07/02/17 at 10:00 Doxazosin Mesylate (Cardura) 4 mg HS PO Last administered on 07/08/17 21:25; Start 07/02/17 at 21:00 Ferrous Sulfate (Feosol) 325 mg DAILYWBKFT PO Last administered on 07/08/17 08:08; Start 07/02/17 at 09:00 Vitamin B Complex/ Vitamin C (Richelle-Harsha) 1 tab DAILY PO Last administered on 08:09; Start 07/02/17 at 09:00 Furosemide (Lasix) 80 mg BID92 PO Last administered on 07/08/17 12:45; Start 07/02/17 at 09:00 Albuterol/ Ipratropium (Duoneb) 3 ml TID NEB Last administered on 07/09/17 12 :42; Start 07/02/17 at 09:00 Lisinopril (Prinivil) 5 mg HS PO Last administered on 07/06/17 22:26; Start 07/02/17 at 21:00; Stop 07/07/17 at 13:59; Status DC Metoprolol Succinate (Toprol Xl) 25 mg DAILY PO Last administered on 09:58; Start 07/02/17 at 09:00 Sodium Bicarbonate (Sodium Bicarbonate) 650 mg TIDAC PO Last administered on 12:17; Start 07/02/17 at 11:30 Tamsulosin HCl (Flomax) 0.4 mg DAILY PO Last administered on 07/08/17 08:08; Start 07/02/17 at 09:00 Calcium Acetate (Phoslo) 667 mg TIDWMEALS PO Last administered on 07/09/17 12 :16; Start 07/02/17 at 12:00 Calcium Carbonate/ Glycine (Tums) 500 mg TIDWMEALS PO Last administered on 12:17; Start 07/02/17 at 12:00 Carvedilol (Coreg) 25 mg BIDWMEALS PO Last administered on 07/08/17 17:09; Start 07/02/17 at 17:00 Insulin Detemir (Levemir) 20 units QHS SQ Last administered on 07/08/17 21:46 ; Start 07/02/17 at 21:00 Potassium Chloride (Klor-Con) 20 meq BIDWMEALS PO Last administered on 09:14; Start 07/02/17 at 10:00; Stop 07/03/17 at 10:02; Status DC Atorvastatin Calcium (Lipitor) 5 mg QHS PO Last administered on 07/08/17 21: 00; Start 07/02/17 at 21:00 Non-Formulary Medication 400 mg BID PO ; Start 07/02/17 at 09:00; Stop 07/02/17 at 10:20; Status DC Zolpidem Tartrate (Ambien) 5 mg PRN QHS PRN PO INSOMNIA; Start 07/02/17 at 10: 15 Insulin Aspart (NovoLOG) 0-5 UNITS TIDWMEALS SQ Last administered on 07/02/17t 17:22; Start 07/02/17 at 12:00; Stop 07/03/17 at 08:59; Status DC Dextrose (Dextrose 50%-Water Syringe) 12.5 gm PRN Q15MIN PRN IV SEE COMMENTS; Start 07/02/17 at 08:30; Stop 07/03/17 at 14:12; Status DC Clindamycin Phosphate 50 ml @ 100 mls/hr 1X ONCE IV ; Start 07/02/17 at 08:45 ; Stop 07/02/17 at 09:03; Status DC Propofol 20 ml @ As Directed STK-MED ONCE IV ; Start 07/02/17 at 08:44; Stop at 08:45; Status DC Lidocaine HCl (Lidocaine Pf 2% Vial) 5 ml STK-MED ONCE .ROUTE ; Start 07/02/17 at 08:44; Stop 07/02/17 at 08:45; Status DC Midazolam HCl (Versed) 2 mg STK-MED ONCE .ROUTE ; Start 07/02/17 at 08:45; Stop 07/02/17 at 08:46; Status DC Ephedrine Sulfate (Akovaz) 50 mg STK-MED ONCE .ROUTE ; Start 07/02/17 at 09:28; Stop 07/02/17 at 09:29; Status DC Phenylephrine HCl (Krunal-Synephrine Inj) 10 mg STK-MED ONCE .ROUTE ; Start at 09:37; Stop 07/02/17 at 09:38; Status DC Dexamethasone Sodium Phosphate (Decadron) 20 mg STK-MED ONCE .ROUTE ; Start 07/02/17 at 09:37; Stop 07/02/17 at 09:38; Status DC Ondansetron HCl (Zofran) 4 mg STK-MED ONCE .ROUTE ; Start 07/02/17 at 09:37; Stop 07/02/17 at 09:38; Status DC Sevoflurane (Ultane) 15 ml STK-MED ONCE IH ; Start 07/02/17 at 09:53; Stop 07/02 at 09:54; Status DC Zolpidem Tartrate (Ambien) 5 mg QHS PO Last administered on 07/08/17 21:19; Start 07/02/17 at 21:00 Acetaminophen (Tylenol) 650 mg PRN Q6HRS PRN PO FEVER Last administered on 07/02 23:18; Start 07/02/17 at 15:45 Ondansetron HCl (Zofran) 4 mg PRN Q6HRS PRN IV NAUSEA/VOMITING; Start 07/02/17 at 15:45 Morphine Sulfate 2 mg PRN Q2HR PRN IV PAIN; Start 07/02/17 at 15:45 Tramadol HCl (Ultram) 50 mg PRN Q6HRS PRN PO MILD PAIN; Start 07/02/17 at 15:45 Hydralazine HCl (Apresoline Inj) 10 mg PRN Q4HRS PRN IVP ELEVATED BP, SEE COMMENTS; Start 07/02/17 at 15:45 Docusate Sodium (Colace) 100 mg PRN DAILY PRN PO CONSTIPATION; Start 07/02/17 at 15:45 Insulin Aspart (NovoLOG) 0-9 UNITS TIDWMEALS SQ Last administered on 17:13; Start 07/03/17 at 12:00 Dextrose (Dextrose 50%-Water Syringe) 12.5 gm PRN Q15MIN PRN IV SEE COMMENTS; Start 07/03/17 at 09:00 Magnesium Sulfate/ Dextrose 50 ml @ 25 mls/hr PRN DAILY PRN IV for Mag < 1.7 on am labs; Start 07/03/17 at 09:15 Clindamycin Phosphate (Cleocin 900mg Premix) 900 mg STK-MED ONCE IV ; Start 07/02/17 at 08:00; Stop 07/03/17 at 09:11; Status DC Insulin Aspart (NovoLOG) 5 units 1X ONCE SQ Last administered on 07/03/17 09: 46; Start 07/03/17 at 09:30; Stop 07/03/17 at 09:31; Status DC Potassium Chloride (Klor-Con) 20 meq BIDWMEALS PO Last administered on 17:08; Start 07/03/17 at 17:00 Ciprofloxacin/ Dextrose 200 ml @ 200 mls/hr DAILY IV ; Start 07/03/17 at 14:00 ; Stop 07/03/17 at 14:38; Status DC Ciprofloxacin/ Dextrose 200 ml @ 200 mls/hr Q18H IV ; Start 07/04/17 at 09:00 ; Stop 07/04/17 at 11:51; Status DC Ciprofloxacin/ Dextrose 200 ml @ 200 mls/hr 1X ONCE IV Last administered on 07/03/17 16:24; Start 07/03/17 at 15:30; Stop 07/04/17 at 11:51; Status DC Magnesium Sulfate/ Dextrose 50 ml @ 25 mls/hr 1X ONCE IV Last administered on 07/04/17 11:41; Start 07/04/17 at 10:30; Stop 07/04/17 at 12:29; Status DC Ertapenem 0.5 gm/ Sodium Chloride 50 ml @ 100 mls/hr DAILY08 IV ; Start at 08:00; Status UNV Meropenem (Merrem) 500 mg Q24H IVP Last administered on 07/09/17 12:22; Start 07/04/17 at 13:00 Darbepoetin Fredi (Aranesp) 100 mcg QSA@2100 SQ Last administered on 07/05/17 22:15; Start 07/05/17 at 21:00 Lactobacillus Rhamnosus (Culturelle) 1 cap BID PO Last administered on 21:17; Start 07/06/17 at 21:00 Lisinopril (Prinivil) 10 mg QHS PO Last administered on 07/07/17 20:59; Start 07/07/17 at 21:00; Stop 07/08/17 at 14:45; Status DC Polyethylene Glycol (miraLAX PACKET) 17 gm PRN DAILY PRN PO CONSTIPATION Last administered on 07/07/17 21:15; Start 07/07/17 at 21:00 Lisinopril (Prinivil) 20 mg QHS PO Last administered on 07/08/17 21:27; Start 07/08/17 at 21:00 Ondansetron HCl (Zofran) 4 mg PRN Q6HRS PRN IV NAUSEA/VOMITING; Start at 07:00; Stop 07/10/17 at 06:59 Fentanyl Citrate (Fentanyl 2ml Vial) 25 mcg PRN Q5MIN PRN IV MILD PAIN; Start 07/09/17 at 07:00; Stop 07/10/17 at 06:59 Fentanyl Citrate (Fentanyl 2ml Vial) 50 mcg PRN Q5MIN PRN IV MODERATE PAIN; Start 07/09/17 at 07:00; Stop 07/10/17 at 06:59 Morphine Sulfate 1 mg PRN Q10MIN PRN IV SEVERE PAIN; Start 07/09/17 at 07:00; Stop 07/10/17 at 06:59 Ringer's Solution 1,000 ml @ 30 mls/hr Q24H IV ; Start 07/09/17 at 07:00; Stop 07/09/17 at 18:59; Status Cancel Lidocaine HCl (Xylocaine-Mpf 1% Vial) 2 ml PRN 1X PRN ID IV START; Start 07/09 at 07:00; Stop 07/10/17 at 06:59 Hydromorphone HCl (Dilaudid) 0.5 mg PRN Q10MIN PRN IV SEV PAIN, Second choice; Start 07/09/17 at 07:00; Stop 07/10/17 at 06:59 Prochlorperazine Edisylate (Compazine) 5 mg PACU PRN PRN IV NAUSEA, MRX1; Start 07/09/17 at 07:00; Stop 07/10/17 at 06:59 Active Scripts Active Reported Carvedilol 25 Mg Tablet 1 Tab PO BID Coq-10 (Ubidecarenone) 100 Mg Capsule 400 Mg PO BID Krill Oil 500 mg Softgel (Krill/Om-3/Dha/Epa/Phospho/Ast) 1 Each Capsule 1 Each PO DAILY Vitamin D3 (Cholecalciferol (Vitamin D3)) 1,000 Unit Tablet 1 Tab PO DAILY Potassium Chloride 20 Meq Tablet.er 20 Meq PO BID Metoprolol Succinate ( Xl ) (Metoprolol Succinate) 25 Mg Tab.er.24h 1 Tab PO DAILY Calcium Acetate 667 Mg Tablet 1,334 Mg PO TIDWMEALS Ambien (Zolpidem Tartrate) 10 Mg Tablet 1 Tab PO QHS Humalog (Insulin Lispro) 100 Unit/1 Ml Cartridge 0 SQ Doxazosin Mesylate 4 Mg Tablet 4 Mg PO HS Nephro-Harsha Tablet (Folic Acid/Vitamin B Comp W-C) 0.8 Mg Tablet 1 Tab PO DAILY Aspir 81 (Aspirin) 81 Mg Tablet.dr 1 Tab PO DAILY Furosemide 80 Mg Tablet 80 Mg PO BID Sodium Bicarbonate 650 Mg Tablet 1 Tab PO TIDAC Artificial Tears Eye Drops (Dextran 70/Hypromellose) 15 Ml Drops 1 Drop EACHEYE BID Pravastatin Sodium 10 Mg Tablet 1 Tab PO QHS Tamsulosin Hcl 0.4 Mg Cap.er.24h 1 Cap PO DAILY Docusate Sodium 100 Mg Capsule 200 Mg PO DAILY Aranesp Syringe (Darbepoetin Fredi In Polysorbat) 60 Mcg/0.3 Ml Disp.syrin 60 Mcg SQ WEEKLY Ferrous Sulfate 325 Mg Tablet 1 Tab PO DAILY Duoneb 0.5-3(2.5) Mg/3 Ml (Albuterol/Ipratropium) 3 Ml Ampul.neb 3 Ml NEB TID Tums Ultra (Calcium Carbonate) 400 Mg Tab.chew 500 Mg PO TID Allopurinol 100 Mg Tablet 1 Tab PO DAILY Clonidine Hcl 0.2 Mg Tablet 1 Tab PO PRN TAKES ONLY IF HIS BLOOD PRESSURE IS ELEVATED Lisinopril 5 Mg Tablet 1 Tab PO HS Levemir (Insulin Detemir) 100 Unit/1 Ml Vial 20 Unit SQ HS Vitals/I & O Vital Sign - Last 24 Hours 07/08/17 07/08/17 07/08/17 07/08/17 16:53 17:09 19:00 19:50 Temp 96.6 96.6 Pulse 73 81 Resp 18 B/P (MAP) 165/75 136/35 (68) Pulse Ox 98 92 O2 Delivery Room Air Room Air Room Air 07/08/17 07/08/17 07/08/17 07/08/17 20:03 21:25 21:26 21:27 Pulse 82 82 82 B/P (MAP) 150/83 150/83 150/83 O2 Delivery Room Air 07/08/17 07/09/17 07/09/17 07/09/17 23:00 03:00 07:00 07:12 Temp 97.6 97.6 97.9 97.6 97.6 97.9 Pulse 80 72 76 Resp 18 18 18 B/P (MAP) 150/50 (83) 157/37 (77) 142/31 (68) Pulse Ox 100 99 96 100 O2 Delivery Room Air Room Air Room Air Room Air 07/09/17 07/09/17 07/09/17 07/09/17 08:30 09:00 09:58 11:00 Temp 97.9 98.1 97.9 98.1 Pulse 72 72 74 Resp 18 B/P (MAP) 155/49 (84) 155/49 131/55 (80) Pulse Ox 100 97 O2 Delivery Room Air Room Air Room Air 07/09/17 12:42 O2 Delivery Room Air Intake and Output 07/08/17 07/08/17 07/09/17 15:00 23:00 07:00 Intake Total 240 ml 450 ml Balance 240 ml 450 ml MARA ABEBE MD Jul 09, 2017 12:54
[2017-07-09] MEDS: INSULIN DETEMIR 300 UNITS/3 ML INSULN.PEN. SQ SCH (20:59)
[2017-07-09] MEDS: ZOLPIDEM 5 MG TABLET. PO SCH (21:02)
[2017-07-09] MEDS: ACETAMINOPHEN 325 MG TABLET. PO PRN (21:02)
[2017-07-09] MEDS: LISINOPRIL 20 MG TABLET PO SCH (21:03)
[2017-07-09] MEDS: DOXAZOSIN MESYLATE 4 MG TABLET. PO SCH (21:04)
[2017-07-09] MEDS: ATORVASTATIN CALCIUM 10 MG TABLET. PO SCH (21:05)
[2017-07-10] VITALS (14 sets, daily range): BP systolic 150–195; BP diastolic 35–98
[2017-07-10] MEDS: HYDROcodone/APAP 5/325MG 1 TAB TABLET PO PRN (01:55)
[2017-07-10] MEDS: SODIUM BICARBONATE 650 MG TABLET. PO SCH ×3 (06:37→16:30)
[2017-07-10 06:55] LABS: BASO % 0 % (0-3); EOS % 4 % (0-3); HEMATOCRIT 26.3 % (39.0-53.0); HEMOGLOBIN 8.7 g/dL (13.0-17.5); LYMPH # 0.4 x10^3/uL (1.0-4.8); LYMPH % 5 % (24-48); MEAN CORPUSCULAR HEMOGLOBIN 33 pg (25-35); MEAN CORPUSCULAR HGB CONC 33 g/dL (31-37); MEAN CORPUSCULAR VOLUME 98 fL (79-100); MONO % 5 % (0-9); NEUT % 85 % (31-73); PLATELET COUNT 108 x10^3/uL (140-400); RED BLOOD COUNT 2.68 x10^6/uL (4.30-5.70); RED CELL DISTRIBUTION WIDTH 19.1 % (11.5-14.5); WHITE BLOOD COUNT 6.8 x10^3/uL (4.0-11.0)
[2017-07-10] MEDS ORDERED: ONDANSETRON PF 4 MG/2 ML VIAL. IV PRN (07:00)
[2017-07-10] MEDS ORDERED: fentaNYL PF VIAL 100 MCG/2 ML VIAL IV PRN (07:00)
[2017-07-10] MEDS ORDERED: LIDOCAINE 1% PF 2 ML VIAL. ID PRN (07:00)
[2017-07-10] MEDS ORDERED: IV RINGERS,LACTATED 1000ML 1,000 ML IV SCH (07:00)
[2017-07-10 07:03] LABS: ALBUMIN 2.4 g/dL (3.4-5.0); CALCIUM 8.3 mg/dL (8.5-10.1); CREATININE 6.1 mg/dL (0.7-1.3); GFR 9.4; PHOSPHORUS 5.8 mg/dL (2.6-4.7); POTASSIUM 4.1 mmol/L (3.5-5.1)
[2017-07-10] MEDS: IPRATRPIUM/ALBUTEROL 0.5/2.5MG 3 ML NEBU. NEB SCH ×3 (07:43→20:19)
[2017-07-10] MEDS: INSULIN ASPART 300 UNITS/3 ML INSULN.PEN SQ SCH ×3 (08:00→17:00)
[2017-07-10] MEDS: POTASSIUM CHLORIDE 20 MEQ TABLET.ER. PO SCH ×2 (08:00→17:00)
[2017-07-10] MEDS: CALCIUM ACETATE 667 MG CAPSULE PO SCH ×3 (08:00→17:00)
[2017-07-10] MEDS: CALCIUM CARBONATE 500 MG TAB.CHEW PO SCH ×3 (08:00→17:00)
[2017-07-10] MEDS: FERROUS SULFATE 325 MG TABLET. PO SCH (08:00)
[2017-07-10] MEDS: METOPROLOL SUCC 24HR ER 25 MG TAB.ER.24H. PO SCH (08:51)
[2017-07-10] MEDS: CARVEDILOL 12.5 MG TABLET. PO SCH ×2 (08:51→17:30)
[2017-07-10] MEDS: CHOLECALCIFEROL (VITAMIN D3) 1,000 UNIT TABLET PO SCH (09:00)
[2017-07-10] MEDS: FUROSEMIDE 80 MG TABLET. PO SCH ×2 (09:00→14:00)
[2017-07-10] MEDS: ALLOPURINOL 100 MG TABLET. PO SCH (09:00)
[2017-07-10] MEDS: SENNOSIDES/DOCUSATE 8.6/50MG TABLET. PO SCH ×2 (09:00→21:40)
[2017-07-10] MEDS: LACTOBACILLUS RHAMNOSUS GG 1 CAPSULE. PO SCH ×2 (09:00→21:41)
[2017-07-10] MEDS: FOLIC/VIT B COMP W-C (RENAL) TABLET. PO SCH (09:00)
[2017-07-10] MEDS: TAMSULOSIN 0.4 MG CAP.ER.24H. PO SCH (09:00)
[2017-07-10] MEDS: cloNIDine HCL 0.2 MG TABLET PO SCH ×2 (09:00→21:42)
[2017-07-10] MEDS: ASPIRIN ENTERIC COATED 81 MG TABLET.DR. PO SCH (09:00)
--- NOTE | 2017-07-10 09:27 | PDOC ---
Infectious Disease Note Subjective Subjective Comfortable, denies pain No N/v ROS ROS GEN: Denies fevers, chills, sweats HEENT: Denies blurred vision, sore throat CV: Denies chest pain RESP: Denies shortness of air, cough GI: Denies n/v/d NEURO: Denies confusion, dizziness MSK: Denies weakness, joint pain/swelling Vital Sign Vital Signs Vital Signs Date Time Temp Pulse Resp B/P (MAP) Pulse Ox O2 Delivery O2 Flow Rate FiO2 07/10/17 08:51 78 151/48 07/10/17 07:43 97 Room Air 07/10/17 07:00 97.0 18 97.0 07/09/17 13:00 3.0 Physical Exam PHYSICAL EXAM GENERAL: NAD, Alert, coop NECK: Supple, no JVD, no LN LUNGS: Clear HEART: S1S2, no gallop, no murmur ABD: Soft, NT, no organomegaly, no rebound, PD cath EXT: No edema, no cyanosis. Vac to left foot [employer]: Alert, oriented x 3, no focal neurologic deficit SKIN: No rash IV: RUE - PICC Labs Lab Laboratory Tests Test 07/09/17 11:21 07/09/17 16:54 07/09/17 20:48 07/10/17 06:40 Glucose (Fingerstick) 146 mg/dL (70-99) 185 mg/dL (70-99) 209 mg/dL (70-99) White Blood Count 6.8 x10^3/uL (4.0-11.0) Red Blood Count 2.68 x10^6/uL (4.30-5.70) Hemoglobin 8.7 g/dL (13.0-17.5) Hematocrit 26.3 % (39.0-53.0) Mean Corpuscular Volume 98 fL (79-100) Mean Corpuscular Hemoglobin 33 pg (25-35) Mean Corpuscular Hemoglobin Concent 33 g/dL (31-37) Red Cell Distribution Width 19.1 % (11.5-14.5) Platelet Count 108 x10^3/uL (140-400) Neutrophils (%) (Auto) 85 % (31-73) Lymphocytes (%) (Auto) 5 % (24-48) Monocytes (%) (Auto) 5 % (0-9) Eosinophils (%) (Auto) 4 % (0-3) Basophils (%) (Auto) 0 % (0-3) Neutrophils # (Auto) 5.8 x10^3uL (1.8-7.7) Lymphocytes # (Auto) 0.4 x10^3/uL (1.0-4.8) Monocytes # (Auto) 0.4 x10^3/uL (0.0-1.1) Eosinophils # (Auto) 0.2 x10^3/uL (0.0-0.7) Basophils # (Auto) 0.0 x10^3/uL (0.0-0.2) Sodium Level 141 mmol/L (136-145) Potassium Level 4.1 mmol/L (3.5-5.1) Chloride Level 101 mmol/L (98-107) Carbon Dioxide Level 32 mmol/L (21-32) Anion Gap 8 (6-14) Blood Urea Nitrogen 72 mg/dL (8-26) Creatinine 6.1 mg/dL (0.7-1.3) Estimated GFR (Cockcroft-Gault) 9.4 Glucose Level 100 mg/dL (70-99) Calcium Level 8.3 mg/dL (8.5-10.1) Phosphorus Level 5.8 mg/dL (2.6-4.7) Albumin 2.4 g/dL (3.4-5.0) Test 07/10/17 07:39 Glucose (Fingerstick) 103 mg/dL (70-99) Objective Assessment 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 Lee. ESBL/MDR Klebsiella (S carbapenems & levofloxacin; I cipro otherwise resistant) - Has opted for amputation End-stage renal disease, on peritoneal dialysis. Diabetes mellitus 2 with neuropathy. Coronary artery disease. 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 Acute on chronic anemia. History of recurrent gastrointestinal bleed. History of gastric ulcer, status post clip and epinephrine injection. History of chronic thrombocytopenia. PENICILLIN ALLERGY, has had amoxicillin and Zosyn in the past, tolerated it Plan Plan of Care Continue renally dosed Meropenem Awaiting surgery today Hopefully can d/c abx post surgery D/w NEELAM SANTANA MD Jul 10, 2017 09:27
[2017-07-10] MEDS ORDERED: SEVOFLURANE 61 TO 120 MINUTES. IH ONE (11:08)
[2017-07-10] MEDS ORDERED: LIDOCAINE 2% PF Vial for OR 5 ML VIAL. ONE (11:11)
[2017-07-10] MEDS ORDERED: DEXAMETHASONE SOD PHOS 20 MG/5 ML VIAL. ONE (11:11)
[2017-07-10] MEDS ORDERED: fentaNYL PF VIAL 100 MCG/2 ML VIAL ONE ×2 (11:11→13:17)
[2017-07-10] MEDS ORDERED: ONDANSETRON PF 4 MG/2 ML VIAL. ONE (11:11)
[2017-07-10] MEDS ORDERED: PROPOFOL 0 ML IV ONE (11:11)
--- NOTE | 2017-07-10 11:31 | PDOC ---
Renal-Progress Notes Subjective Notes Notes NONE History of Present Illness Hx of present illness NO CHANGE Vitals Vitals Vital Signs Date Time Temp Pulse Resp B/P (MAP) Pulse Ox O2 Delivery O2 Flow Rate FiO2 07/10/17 08:51 78 151/48 07/10/17 08:00 Room Air 07/10/17 07:43 97 07/10/17 07:00 97.0 18 97.0 07/09/17 13:00 3.0 Weight Weight [ ] I.O. Intake and Output Intake and Output 07/10/17 07:00 Output Total 100 ml Balance -100 ml Output Urine Total 100 ml # Voids 3 # Bowel Movements 1 Labs Labs Laboratory Tests Test 07/09/17 16:54 07/09/17 20:48 07/10/17 06:40 07/10/17 07:39 Glucose (Fingerstick) 185 mg/dL (70-99) 209 mg/dL (70-99) 103 mg/dL (70-99) White Blood Count 6.8 x10^3/uL (4.0-11.0) Red Blood Count 2.68 x10^6/uL (4.30-5.70) Hemoglobin 8.7 g/dL (13.0-17.5) Hematocrit 26.3 % (39.0-53.0) Mean Corpuscular Volume 98 fL (79-100) Mean Corpuscular Hemoglobin 33 pg (25-35) Mean Corpuscular Hemoglobin Concent 33 g/dL (31-37) Red Cell Distribution Width 19.1 % (11.5-14.5) Platelet Count 108 x10^3/uL (140-400) Neutrophils (%) (Auto) 85 % (31-73) Lymphocytes (%) (Auto) 5 % (24-48) Monocytes (%) (Auto) 5 % (0-9) Eosinophils (%) (Auto) 4 % (0-3) Basophils (%) (Auto) 0 % (0-3) Neutrophils # (Auto) 5.8 x10^3uL (1.8-7.7) Lymphocytes # (Auto) 0.4 x10^3/uL (1.0-4.8) Monocytes # (Auto) 0.4 x10^3/uL (0.0-1.1) Eosinophils # (Auto) 0.2 x10^3/uL (0.0-0.7) Basophils # (Auto) 0.0 x10^3/uL (0.0-0.2) Sodium Level 141 mmol/L (136-145) Potassium Level 4.1 mmol/L (3.5-5.1) Chloride Level 101 mmol/L (98-107) Carbon Dioxide Level 32 mmol/L (21-32) Anion Gap 8 (6-14) Blood Urea Nitrogen 72 mg/dL (8-26) Creatinine 6.1 mg/dL (0.7-1.3) Estimated GFR (Cockcroft-Gault) 9.4 Glucose Level 100 mg/dL (70-99) Calcium Level 8.3 mg/dL (8.5-10.1) Phosphorus Level 5.8 mg/dL (2.6-4.7) Albumin 2.4 g/dL (3.4-5.0) Micro Micro Microbiology 07/02/17 Anaerobic/Aerobic Culture - Final, Complete 07/02/17 Anaerobic Culture Result 1 (BELKIS) - Final, Complete 07/02/17 Aerobic Culture - Final, Complete 07/02/17 Aerobic Culture Result 1 (BELKIS) - Final, Complete Review of Systems Constitutional: yes: malaise, weakness, alert, oriented Ears/Nose/Throat: Yes: no symptom reported Eyes: Yes: no symptom reported Pulmonary: Yes no symptom reported Cardiovascular: Yes no symptom reported Gastrointestional: Yes: constipation Genitourinary: Yes: no symptom reported Musculoskeletal: Yes: muscle stiffness, muscle atrophy Skin: Yes no symptom reported Psychiatric/Neurological: Yes: no symptom reported Endocrine: Yes: no symptom reported Physical Exam General Appearance: no apparent distress Skin: warm Respiratory: bilateral CTA Heart: S1S2 Abdomen: soft, bowel sounds present Genitourinary: bladder flat Extremities: pulses present Neurology: alert, oriented Assessment Assessment IMP DM II HTN ANEMIA ESRD LEFT FOOT WOUND PLAN CONT CAPD AWAITING PLACEMENT AT REHAB SUPPORTIVE CARE SYED DOTY MD Jul 10, 2017 11:31
--- NOTE | 2017-07-10 11:47 | PDOC ---
BRIEF OPERATIVE NOTE Date: Jul 10, 2017 Pre-Op Diagnosis Chronic wound L foot, wound dehiscence Post-Op Diagnosis same Procedure Performed L BKA Surgeon Rosa Heel Cementer Alma Anesthesiologist Lyn Anesthesia Type: General, Local Blood Loss 250mL IV Fluid see Anes Urine Output see Anes Specimens Obtained left lower leg Findings see op report Complications none; Xray confirmed sponge not in wound Operative Note dictated JOSELITO PONCE II, MD Jul 10, 2017 11:47
[2017-07-10] MEDS ORDERED: ETOMIDATE 20 MG/10 ML VIAL. IV ONE (11:48)
--- NOTE | 2017-07-10 12:42 | PDOC ---
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 recent left toes osteo post toes amputation with wound dehiscence recent Recurrent UGIB, s/p EGD, with gastric ulcer post clip and epi injection recent acute on chronic resp failure, post intubation, trach removed ESRD previous on PD,on short term of HD, back to PD now recent CAD with 3rd degree AVB with PPM/ICD DM2 ON insulin dysphagia resolved morbid obesity, BMI 32.5 acute on chronic anemia, esrd, gib h/o thrombocytopenia moderate malnutrition plan: fu with Renal, ID, ortho cont meropenum with ID increase lisinopril to 20mg daily, cont other HTN meds cont PD daily PTOT OR for further amputation today on insulin for DM2, ssi thanks for asking TH for consult History of Present Illness History of Present Illness Pt is a pleasant 61 year old male who presents with a klebsiella wound infection of the left foot. He is on meropenem for abx. He is currently on wound vac. Pt is also on dialysis and has a PICC line. Pt was seen at bedside resting comfortably in NAD. Pt is being followed by orthopedics, nephrology, and ID. Will continue abx, wound care, and dialysis. Will continue to monitor. ROS: no fever, chills, sob or chest pain feels ok high BP left foot wound has wound vac on, looks bad as per wound care Vitals Vitals Vital Signs Date Time Temp Pulse Resp B/P (MAP) Pulse Ox O2 Delivery O2 Flow Rate FiO2 07/10/17 11:50 97.3 73 20 153/67 93 Room Air 97.3 07/09/17 13:00 3.0 Physical Exam General: Alert, Oriented X3, Cooperative Heart: Regular rate Lungs: Clear Abdomen: Soft Extremities: No clubbing, No cyanosis, No edema, Other (negative Homans) Skin: Other (left foot open sites at the medial and lateral extremes of previous midfoot incision. These 2 areas comprised majority of the wound. Large areas of central exposed bone are evident. Peripheral tissue does not demonstrate good granulation with the development of slough noted throughout the wound area.) Labs LABS Laboratory Tests Test 07/09/17 16:54 07/09/17 20:48 07/10/17 06:40 07/10/17 07:39 Glucose (Fingerstick) 185 mg/dL (70-99) 209 mg/dL (70-99) 103 mg/dL (70-99) White Blood Count 6.8 x10^3/uL (4.0-11.0) Red Blood Count 2.68 x10^6/uL (4.30-5.70) Hemoglobin 8.7 g/dL (13.0-17.5) Hematocrit 26.3 % (39.0-53.0) Mean Corpuscular Volume 98 fL (79-100) Mean Corpuscular Hemoglobin 33 pg (25-35) Mean Corpuscular Hemoglobin Concent 33 g/dL (31-37) Red Cell Distribution Width 19.1 % (11.5-14.5) Platelet Count 108 x10^3/uL (140-400) Neutrophils (%) (Auto) 85 % (31-73) Lymphocytes (%) (Auto) 5 % (24-48) Monocytes (%) (Auto) 5 % (0-9) Eosinophils (%) (Auto) 4 % (0-3) Basophils (%) (Auto) 0 % (0-3) Neutrophils # (Auto) 5.8 x10^3uL (1.8-7.7) Lymphocytes # (Auto) 0.4 x10^3/uL (1.0-4.8) Monocytes # (Auto) 0.4 x10^3/uL (0.0-1.1) Eosinophils # (Auto) 0.2 x10^3/uL (0.0-0.7) Basophils # (Auto) 0.0 x10^3/uL (0.0-0.2) Sodium Level 141 mmol/L (136-145) Potassium Level 4.1 mmol/L (3.5-5.1) Chloride Level 101 mmol/L (98-107) Carbon Dioxide Level 32 mmol/L (21-32) Anion Gap 8 (6-14) Blood Urea Nitrogen 72 mg/dL (8-26) Creatinine 6.1 mg/dL (0.7-1.3) Estimated GFR (Cockcroft-Gault) 9.4 Glucose Level 100 mg/dL (70-99) Calcium Level 8.3 mg/dL (8.5-10.1) Phosphorus Level 5.8 mg/dL (2.6-4.7) Albumin 2.4 g/dL (3.4-5.0) Test 07/10/17 11:26 Glucose (Fingerstick) 153 mg/dL (70-99) Comment Review of Relevant I have reviewed the following items den (where applicable) has been applied. Labs Laboratory Tests Test 07/08/17 16:41 07/08/17 21:34 07/09/17 06:00 07/09/17 07:56 Glucose (Fingerstick) 170 mg/dL (70-99) 178 mg/dL (70-99) 102 mg/dL (70-99) White Blood Count 6.4 x10^3/uL (4.0-11.0) Red Blood Count 2.54 x10^6/uL (4.30-5.70) Hemoglobin 8.2 g/dL (13.0-17.5) Hematocrit 24.9 % (39.0-53.0) Mean Corpuscular Volume 98 fL (79-100) Mean Corpuscular Hemoglobin 33 pg (25-35) Mean Corpuscular Hemoglobin Concent 33 g/dL (31-37) Red Cell Distribution Width 18.4 % (11.5-14.5) Platelet Count 111 x10^3/uL (140-400) Neutrophils (%) (Auto) 86 % (31-73) Lymphocytes (%) (Auto) 5 % (24-48) Monocytes (%) (Auto) 5 % (0-9) Eosinophils (%) (Auto) 4 % (0-3) Basophils (%) (Auto) 1 % (0-3) Neutrophils # (Auto) 5.5 x10^3uL (1.8-7.7) Lymphocytes # (Auto) 0.3 x10^3/uL (1.0-4.8) Monocytes # (Auto) 0.3 x10^3/uL (0.0-1.1) Eosinophils # (Auto) 0.2 x10^3/uL (0.0-0.7) Basophils # (Auto) 0.0 x10^3/uL (0.0-0.2) Sodium Level 140 mmol/L (136-145) Potassium Level 4.2 mmol/L (3.5-5.1) Chloride Level 101 mmol/L (98-107) Carbon Dioxide Level 32 mmol/L (21-32) Anion Gap 7 (6-14) Blood Urea Nitrogen 72 mg/dL (8-26) Creatinine 6.1 mg/dL (0.7-1.3) Estimated GFR (Cockcroft-Gault) 9.4 Glucose Level 116 mg/dL (70-99) Calcium Level 8.2 mg/dL (8.5-10.1) Phosphorus Level 5.2 mg/dL (2.6-4.7) Albumin 2.1 g/dL (3.4-5.0) Test 07/09/17 11:21 07/09/17 16:54 07/09/17 20:48 07/10/17 06:40 Glucose (Fingerstick) 146 mg/dL (70-99) 185 mg/dL (70-99) 209 mg/dL (70-99) White Blood Count 6.8 x10^3/uL (4.0-11.0) Red Blood Count 2.68 x10^6/uL (4.30-5.70) Hemoglobin 8.7 g/dL (13.0-17.5) Hematocrit 26.3 % (39.0-53.0) Mean Corpuscular Volume 98 fL (79-100) Mean Corpuscular Hemoglobin 33 pg (25-35) Mean Corpuscular Hemoglobin Concent 33 g/dL (31-37) Red Cell Distribution Width 19.1 % (11.5-14.5) Platelet Count 108 x10^3/uL (140-400) Neutrophils (%) (Auto) 85 % (31-73) Lymphocytes (%) (Auto) 5 % (24-48) Monocytes (%) (Auto) 5 % (0-9) Eosinophils (%) (Auto) 4 % (0-3) Basophils (%) (Auto) 0 % (0-3) Neutrophils # (Auto) 5.8 x10^3uL (1.8-7.7) Lymphocytes # (Auto) 0.4 x10^3/uL (1.0-4.8) Monocytes # (Auto) 0.4 x10^3/uL (0.0-1.1) Eosinophils # (Auto) 0.2 x10^3/uL (0.0-0.7) Basophils # (Auto) 0.0 x10^3/uL (0.0-0.2) Sodium Level 141 mmol/L (136-145) Potassium Level 4.1 mmol/L (3.5-5.1) Chloride Level 101 mmol/L (98-107) Carbon Dioxide Level 32 mmol/L (21-32) Anion Gap 8 (6-14) Blood Urea Nitrogen 72 mg/dL (8-26) Creatinine 6.1 mg/dL (0.7-1.3) Estimated GFR (Cockcroft-Gault) 9.4 Glucose Level 100 mg/dL (70-99) Calcium Level 8.3 mg/dL (8.5-10.1) Phosphorus Level 5.8 mg/dL (2.6-4.7) Albumin 2.4 g/dL (3.4-5.0) Test 07/10/17 07:39 07/10/17 11:26 Glucose (Fingerstick) 103 mg/dL (70-99) 153 mg/dL (70-99) Laboratory Tests Test 07/09/17 16:54 07/09/17 20:48 07/10/17 06:40 07/10/17 07:39 Glucose (Fingerstick) 185 mg/dL (70-99) 209 mg/dL (70-99) 103 mg/dL (70-99) White Blood Count 6.8 x10^3/uL (4.0-11.0) Red Blood Count 2.68 x10^6/uL (4.30-5.70) Hemoglobin 8.7 g/dL (13.0-17.5) Hematocrit 26.3 % (39.0-53.0) Mean Corpuscular Volume 98 fL (79-100) Mean Corpuscular Hemoglobin 33 pg (25-35) Mean Corpuscular Hemoglobin Concent 33 g/dL (31-37) Red Cell Distribution Width 19.1 % (11.5-14.5) Platelet Count 108 x10^3/uL (140-400) Neutrophils (%) (Auto) 85 % (31-73) Lymphocytes (%) (Auto) 5 % (24-48) Monocytes (%) (Auto) 5 % (0-9) Eosinophils (%) (Auto) 4 % (0-3) Basophils (%) (Auto) 0 % (0-3) Neutrophils # (Auto) 5.8 x10^3uL (1.8-7.7) Lymphocytes # (Auto) 0.4 x10^3/uL (1.0-4.8) Monocytes # (Auto) 0.4 x10^3/uL (0.0-1.1) Eosinophils # (Auto) 0.2 x10^3/uL (0.0-0.7) Basophils # (Auto) 0.0 x10^3/uL (0.0-0.2) Sodium Level 141 mmol/L (136-145) Potassium Level 4.1 mmol/L (3.5-5.1) Chloride Level 101 mmol/L (98-107) Carbon Dioxide Level 32 mmol/L (21-32) Anion Gap 8 (6-14) Blood Urea Nitrogen 72 mg/dL (8-26) Creatinine 6.1 mg/dL (0.7-1.3) Estimated GFR (Cockcroft-Gault) 9.4 Glucose Level 100 mg/dL (70-99) Calcium Level 8.3 mg/dL (8.5-10.1) Phosphorus Level 5.8 mg/dL (2.6-4.7) Albumin 2.4 g/dL (3.4-5.0) Test 07/10/17 11:26 Glucose (Fingerstick) 153 mg/dL (70-99) Microbiology 07/02/17 Anaerobic/Aerobic Culture - Final, Complete 07/02/17 Anaerobic Culture Result 1 (BELKIS) - Final, Complete 07/02/17 Aerobic Culture - Final, Complete 07/02/17 Aerobic Culture Result 1 (BELKIS) - Final, Complete Medications Current Medications Ondansetron HCl (Zofran) 4 mg PRN Q6HRS PRN IV NAUSEA/VOMITING; Start 07/02/17 at 07:00; Stop 07/03/17 at 06:59; Status DC Fentanyl Citrate (Fentanyl 2ml Vial) 25 mcg PRN Q5MIN PRN IV MILD PAIN; Start 07/02/17 at 07:00; Stop 07/03/17 at 06:59; Status DC Fentanyl Citrate (Fentanyl 2ml Vial) 50 mcg PRN Q5MIN PRN IV MODERATE PAIN; Start 07/02/17 at 07:00; Stop 07/03/17 at 06:59; Status DC Morphine Sulfate 1 mg PRN Q10MIN PRN IV SEVERE PAIN; Start 07/02/17 at 07:00; Stop 07/03/17 at 06:59; Status DC Ringer's Solution 1,000 ml @ 30 mls/hr Q24H IV ; Start 07/02/17 at 07:00; Stop 07/02/17 at 18:59; Status DC Lidocaine HCl (Xylocaine-Mpf 1% Vial) 2 ml PRN 1X PRN ID IV START; Start at 07:00; Stop 07/03/17 at 06:59; Status DC Hydromorphone HCl (Dilaudid) 0.5 mg PRN Q10MIN PRN IV SEV PAIN, Second choice; Start 07/02/17 at 07:00; Stop 07/03/17 at 06:59; Status DC Prochlorperazine Edisylate (Compazine) 5 mg PACU PRN PRN IV NAUSEA, MRX1; Start 07/02/17 at 07:00; Stop 07/03/17 at 06:59; Status DC Lidocaine HCl 30 ml STK-MED ONCE .ROUTE ; Start 07/02/17 at 07:13; Stop at 07:14; Status DC Bupivacaine HCl (Sensorcaine Mpf 0.5%) 30 ml STK-MED ONCE .ROUTE ; Start at 07:13; Stop 07/02/17 at 07:14; Status DC Clindamycin Phosphate 50 ml @ As Directed STK-MED ONCE IV ; Start 07/02/17 at 08 :19; Stop 07/02/17 at 08:20; Status DC Al Hydroxide/Mg Hydroxide (Mylanta Plus Xs) 30 ml PRN Q3HRS PRN PO HEARTBURN / GAS; Start 07/02/17 at 08:30 Oxycodone HCl (Roxicodone) 5 mg PRN Q3HRS PRN PO BREAKTHROUGH PAIN; Start 07/02 at 08:30 Morphine Sulfate 1 mg PRN Q1HR PRN IV PAIN; Start 07/02/17 at 08:30 Acetaminophen/ Hydrocodone Bitart (Lortab 5/325) 1 tab PRN Q4HRS PRN PO MODERATE - SEVERE PAIN Last administered on 07/10/17 01:55; Start 07/02/17 at 08:30 Senna/Docusate Sodium (Senna Plus) 1 tab BID PO Last administered on 21:02; Start 07/02/17 at 10:00 Magnesium Hydroxide (Milk Of Magnesia) 2,400 mg PRN Q12HR PRN PO CONSTIPATION; Start 07/02/17 at 08:30 Sodium Chloride 1,000 ml @ 100 mls/hr Q10H IV Last administered on 07/02/17 08:51; Start 07/02/17 at 08:30; Stop 07/03/17 at 10:02; Status DC Allopurinol (Zyloprim) 100 mg DAILY PO Last administered on 07/08/17 08:08; Start 07/02/17 at 09:00 Aspirin (Ecotrin) 81 mg DAILY PO Last administered on 07/08/17 08:07; Start 07/02/17 at 09:00 Vitamin D (Vitamin D3) 1,000 unit DAILY PO Last administered on 07/08/17 08: 08; Start 07/02/17 at 09:00 Clonidine HCl (Catapres) 0.2 mg BID PO Last administered on 07/09/17 21:04; Start 07/02/17 at 09:00 Darbepoetin Fredi (Aranesp) 60 mcg Sa SQ ; Start 07/05/17 at 21:00; Stop at 21:00; Status DC Docusate Sodium (Colace) 200 mg DAILY PO Last administered on 07/09/17 12:16 ; Start 07/02/17 at 10:00 Doxazosin Mesylate (Cardura) 4 mg HS PO Last administered on 07/09/17 21:04; Start 07/02/17 at 21:00 Ferrous Sulfate (Feosol) 325 mg DAILYWBKFT PO Last administered on 07/08/17 08:08; Start 07/02/17 at 09:00 Vitamin B Complex/ Vitamin C (Richelle-Harsha) 1 tab DAILY PO Last administered on 08:09; Start 07/02/17 at 09:00 Furosemide (Lasix) 80 mg BID92 PO Last administered on 07/09/17 14:00; Start 07/02/17 at 09:00 Albuterol/ Ipratropium (Duoneb) 3 ml TID NEB Last administered on 07/10/17 07 :43; Start 07/02/17 at 09:00 Lisinopril (Prinivil) 5 mg HS PO Last administered on 07/06/17 22:26; Start 07/02/17 at 21:00; Stop 07/07/17 at 13:59; Status DC Metoprolol Succinate (Toprol Xl) 25 mg DAILY PO Last administered on 08:51; Start 07/02/17 at 09:00 Sodium Bicarbonate (Sodium Bicarbonate) 650 mg TIDAC PO Last administered on 17:29; Start 07/02/17 at 11:30 Tamsulosin HCl (Flomax) 0.4 mg DAILY PO Last administered on 07/08/17 08:08; Start 07/02/17 at 09:00 Calcium Acetate (Phoslo) 667 mg TIDWMEALS PO Last administered on 07/09/17 17 :29; Start 07/02/17 at 12:00 Calcium Carbonate/ Glycine (Tums) 500 mg TIDWMEALS PO Last administered on 17:29; Start 07/02/17 at 12:00 Carvedilol (Coreg) 25 mg BIDWMEALS PO Last administered on 07/10/17 08:51; Start 07/02/17 at 17:00 Insulin Detemir (Levemir) 20 units QHS SQ Last administered on 07/09/17 20:59 ; Start 07/02/17 at 21:00 Potassium Chloride (Klor-Con) 20 meq BIDWMEALS PO Last administered on 09:14; Start 07/02/17 at 10:00; Stop 07/03/17 at 10:02; Status DC Atorvastatin Calcium (Lipitor) 5 mg QHS PO Last administered on 07/09/17 21: 05; Start 07/02/17 at 21:00 Non-Formulary Medication 400 mg BID PO ; Start 07/02/17 at 09:00; Stop 07/02/17 at 10:20; Status DC Zolpidem Tartrate (Ambien) 5 mg PRN QHS PRN PO INSOMNIA; Start 07/02/17 at 10: 15 Insulin Aspart (NovoLOG) 0-5 UNITS TIDWMEALS SQ Last administered on 07/02/17t 17:22; Start 07/02/17 at 12:00; Stop 07/03/17 at 08:59; Status DC Dextrose (Dextrose 50%-Water Syringe) 12.5 gm PRN Q15MIN PRN IV SEE COMMENTS; Start 07/02/17 at 08:30; Stop 07/03/17 at 14:12; Status DC Clindamycin Phosphate 50 ml @ 100 mls/hr 1X ONCE IV ; Start 07/02/17 at 08:45 ; Stop 07/02/17 at 09:03; Status DC Propofol 20 ml @ As Directed STK-MED ONCE IV ; Start 07/02/17 at 08:44; Stop at 08:45; Status DC Lidocaine HCl (Lidocaine Pf 2% Vial) 5 ml STK-MED ONCE .ROUTE ; Start 07/02/17 at 08:44; Stop 07/02/17 at 08:45; Status DC Midazolam HCl (Versed) 2 mg STK-MED ONCE .ROUTE ; Start 07/02/17 at 08:45; Stop 07/02/17 at 08:46; Status DC Ephedrine Sulfate (Akovaz) 50 mg STK-MED ONCE .ROUTE ; Start 07/02/17 at 09:28; Stop 07/02/17 at 09:29; Status DC Phenylephrine HCl (Krunal-Synephrine Inj) 10 mg STK-MED ONCE .ROUTE ; Start at 09:37; Stop 07/02/17 at 09:38; Status DC Dexamethasone Sodium Phosphate (Decadron) 20 mg STK-MED ONCE .ROUTE ; Start 07/02/17 at 09:37; Stop 07/02/17 at 09:38; Status DC Ondansetron HCl (Zofran) 4 mg STK-MED ONCE .ROUTE ; Start 07/02/17 at 09:37; Stop 07/02/17 at 09:38; Status DC Sevoflurane (Ultane) 15 ml STK-MED ONCE IH ; Start 07/02/17 at 09:53; Stop 07/02 at 09:54; Status DC Zolpidem Tartrate (Ambien) 5 mg QHS PO Last administered on 07/09/17 21:02; Start 07/02/17 at 21:00 Acetaminophen (Tylenol) 650 mg PRN Q6HRS PRN PO FEVER Last administered on 21:02; Start 07/02/17 at 15:45 Ondansetron HCl (Zofran) 4 mg PRN Q6HRS PRN IV NAUSEA/VOMITING; Start 07/02/17 at 15:45 Morphine Sulfate 2 mg PRN Q2HR PRN IV PAIN; Start 07/02/17 at 15:45 Tramadol HCl (Ultram) 50 mg PRN Q6HRS PRN PO MILD PAIN; Start 07/02/17 at 15:45 Hydralazine HCl (Apresoline Inj) 10 mg PRN Q4HRS PRN IVP ELEVATED BP, SEE COMMENTS; Start 07/02/17 at 15:45 Docusate Sodium (Colace) 100 mg PRN DAILY PRN PO CONSTIPATION; Start 07/02/17 at 15:45 Insulin Aspart (NovoLOG) 0-9 UNITS TIDWMEALS SQ Last administered on 17:38; Start 07/03/17 at 12:00 Dextrose (Dextrose 50%-Water Syringe) 12.5 gm PRN Q15MIN PRN IV SEE COMMENTS; Start 07/03/17 at 09:00 Magnesium Sulfate/ Dextrose 50 ml @ 25 mls/hr PRN DAILY PRN IV for Mag < 1.7 on am labs; Start 07/03/17 at 09:15 Clindamycin Phosphate (Cleocin 900mg Premix) 900 mg STK-MED ONCE IV ; Start 07/02/17 at 08:00; Stop 07/03/17 at 09:11; Status DC Insulin Aspart (NovoLOG) 5 units 1X ONCE SQ Last administered on 07/03/17 09: 46; Start 07/03/17 at 09:30; Stop 07/03/17 at 09:31; Status DC Potassium Chloride (Klor-Con) 20 meq BIDWMEALS PO Last administered on 17:29; Start 07/03/17 at 17:00 Ciprofloxacin/ Dextrose 200 ml @ 200 mls/hr DAILY IV ; Start 07/03/17 at 14:00 ; Stop 07/03/17 at 14:38; Status DC Ciprofloxacin/ Dextrose 200 ml @ 200 mls/hr Q18H IV ; Start 07/04/17 at 09:00 ; Stop 07/04/17 at 11:51; Status DC Ciprofloxacin/ Dextrose 200 ml @ 200 mls/hr 1X ONCE IV Last administered on 07/03/17 16:24; Start 07/03/17 at 15:30; Stop 07/04/17 at 11:51; Status DC Magnesium Sulfate/ Dextrose 50 ml @ 25 mls/hr 1X ONCE IV Last administered on 07/04/17 11:41; Start 07/04/17 at 10:30; Stop 07/04/17 at 12:29; Status DC Ertapenem 0.5 gm/ Sodium Chloride 50 ml @ 100 mls/hr DAILY08 IV ; Start at 08:00; Status UNV Meropenem (Merrem) 500 mg Q24H IVP Last administered on 07/09/17 12:22; Start 07/04/17 at 13:00 Darbepoetin Fredi (Aranesp) 100 mcg QSA@2100 SQ Last administered on 07/05/17 22:15; Start 07/05/17 at 21:00 Lactobacillus Rhamnosus (Culturelle) 1 cap BID PO Last administered on 21:02; Start 07/06/17 at 21:00 Lisinopril (Prinivil) 10 mg QHS PO Last administered on 07/07/17 20:59; Start 07/07/17 at 21:00; Stop 07/08/17 at 14:45; Status DC Polyethylene Glycol (miraLAX PACKET) 17 gm PRN DAILY PRN PO CONSTIPATION Last administered on 07/07/17 21:15; Start 07/07/17 at 21:00 Lisinopril (Prinivil) 20 mg QHS PO Last administered on 07/09/17 21:03; Start 07/08/17 at 21:00 Ondansetron HCl (Zofran) 4 mg PRN Q6HRS PRN IV NAUSEA/VOMITING; Start at 07:00; Stop 07/10/17 at 06:59; Status DC Fentanyl Citrate (Fentanyl 2ml Vial) 25 mcg PRN Q5MIN PRN IV MILD PAIN; Start 07/09/17 at 07:00; Stop 07/10/17 at 06:59; Status DC Fentanyl Citrate (Fentanyl 2ml Vial) 50 mcg PRN Q5MIN PRN IV MODERATE PAIN; Start 07/09/17 at 07:00; Stop 07/10/17 at 06:59; Status DC Morphine Sulfate 1 mg PRN Q10MIN PRN IV SEVERE PAIN; Start 07/09/17 at 07:00; Stop 07/10/17 at 06:59; Status DC Ringer's Solution 1,000 ml @ 30 mls/hr Q24H IV ; Start 07/09/17 at 07:00; Stop 07/09/17 at 18:59; Status Cancel Lidocaine HCl (Xylocaine-Mpf 1% Vial) 2 ml PRN 1X PRN ID IV START; Start 07/09 at 07:00; Stop 07/10/17 at 06:59; Status DC Hydromorphone HCl (Dilaudid) 0.5 mg PRN Q10MIN PRN IV SEV PAIN, Second choice; Start 07/09/17 at 07:00; Stop 07/10/17 at 06:59; Status DC Prochlorperazine Edisylate (Compazine) 5 mg PACU PRN PRN IV NAUSEA, MRX1; Start 07/09/17 at 07:00; Stop 07/10/17 at 06:59; Status DC Ondansetron HCl (Zofran) 4 mg PRN Q6HRS PRN IV NAUSEA/VOMITING; Start at 07:00; Stop 07/11/17 at 06:59 Fentanyl Citrate (Fentanyl 2ml Vial) 25 mcg PRN Q5MIN PRN IV MILD PAIN; Start 07/10/17 at 07:00; Stop 07/11/17 at 06:59 Fentanyl Citrate (Fentanyl 2ml Vial) 50 mcg PRN Q5MIN PRN IV MODERATE PAIN; Start 07/10/17 at 07:00; Stop 07/11/17 at 06:59 Morphine Sulfate 1 mg PRN Q10MIN PRN IV SEVERE PAIN; Start 07/10/17 at 07:00; Stop 07/11/17 at 06:59 Ringer's Solution 1,000 ml @ 30 mls/hr Q24H IV ; Start 07/10/17 at 07:00; Stop 07/10/17 at 18:59 Lidocaine HCl (Xylocaine-Mpf 1% Vial) 2 ml PRN 1X PRN ID IV START; Start 07/10 at 07:00; Stop 07/11/17 at 06:59 Hydromorphone HCl (Dilaudid) 0.5 mg PRN Q10MIN PRN IV SEV PAIN, Second choice; Start 07/10/17 at 07:00; Stop 07/11/17 at 06:59 Prochlorperazine Edisylate (Compazine) 5 mg PACU PRN PRN IV NAUSEA, MRX1; Start 07/10/17 at 07:00; Stop 07/11/17 at 06:59 Sevoflurane (Ultane) 60 ml STK-MED ONCE IH ; Start 07/10/17 at 11:08; Stop at 11:09; Status DC Fentanyl Citrate (Fentanyl 2ml Vial) 100 mcg STK-MED ONCE .ROUTE ; Start at 11:11; Stop 07/10/17 at 11:12; Status DC Propofol 0 ml @ As Directed STK-MED ONCE IV ; Start 07/10/17 at 11:11; Stop at 11:12; Status DC Lidocaine HCl (Lidocaine Pf 2% Vial) 5 ml STK-MED ONCE .ROUTE ; Start 07/10/17 at 11:11; Stop 07/10/17 at 11:12; Status DC Dexamethasone Sodium Phosphate (Decadron) 20 mg STK-MED ONCE .ROUTE ; Start at 11:11; Stop 07/10/17 at 11:12; Status DC Ondansetron HCl (Zofran) 4 mg STK-MED ONCE .ROUTE ; Start 07/10/17 at 11:11; Stop 07/10/17 at 11:12; Status DC Etomidate (Amidate) 20 mg STK-MED ONCE IV ; Start 07/10/17 at 11:48; Stop at 11:49; Status DC Active Scripts Active Reported Carvedilol 25 Mg Tablet 1 Tab PO BID Coq-10 (Ubidecarenone) 100 Mg Capsule 400 Mg PO BID Krill Oil 500 mg Softgel (Krill/Om-3/Dha/Epa/Phospho/Ast) 1 Each Capsule 1 Each PO DAILY Vitamin D3 (Cholecalciferol (Vitamin D3)) 1,000 Unit Tablet 1 Tab PO DAILY Potassium Chloride 20 Meq Tablet.er 20 Meq PO BID Metoprolol Succinate ( Xl ) (Metoprolol Succinate) 25 Mg Tab.er.24h 1 Tab PO DAILY Calcium Acetate 667 Mg Tablet 1,334 Mg PO TIDWMEALS Ambien (Zolpidem Tartrate) 10 Mg Tablet 1 Tab PO QHS Humalog (Insulin Lispro) 100 Unit/1 Ml Cartridge 0 SQ Doxazosin Mesylate 4 Mg Tablet 4 Mg PO HS Nephro-Harsha Tablet (Folic Acid/Vitamin B Comp W-C) 0.8 Mg Tablet 1 Tab PO DAILY Aspir 81 (Aspirin) 81 Mg Tablet.dr 1 Tab PO DAILY Furosemide 80 Mg Tablet 80 Mg PO BID Sodium Bicarbonate 650 Mg Tablet 1 Tab PO TIDAC Artificial Tears Eye Drops (Dextran 70/Hypromellose) 15 Ml Drops 1 Drop EACHEYE BID Pravastatin Sodium 10 Mg Tablet 1 Tab PO QHS Tamsulosin Hcl 0.4 Mg Cap.er.24h 1 Cap PO DAILY Docusate Sodium 100 Mg Capsule 200 Mg PO DAILY Aranesp Syringe (Darbepoetin Fredi In Polysorbat) 60 Mcg/0.3 Ml Disp.syrin 60 Mcg SQ WEEKLY Ferrous Sulfate 325 Mg Tablet 1 Tab PO DAILY Duoneb 0.5-3(2.5) Mg/3 Ml (Albuterol/Ipratropium) 3 Ml Ampul.neb 3 Ml NEB TID Tums Ultra (Calcium Carbonate) 400 Mg Tab.chew 500 Mg PO TID Allopurinol 100 Mg Tablet 1 Tab PO DAILY Clonidine Hcl 0.2 Mg Tablet 1 Tab PO PRN TAKES ONLY IF HIS BLOOD PRESSURE IS ELEVATED Lisinopril 5 Mg Tablet 1 Tab PO HS Levemir (Insulin Detemir) 100 Unit/1 Ml Vial 20 Unit SQ HS Vitals/I & O Vital Sign - Last 24 Hours 07/09/17 07/09/17 07/09/17 07/09/17 12:42 13:00 15:00 17:29 Temp 97.7 97.7 97.7 97.7 Pulse 76 76 76 Resp 18 B/P (MAP) 151/44 (79) 151/44 (79) 151/44 Pulse Ox 96 96 O2 Delivery Room Air Room Air Room Air O2 Flow Rate 3.0 07/09/17 07/09/17 07/09/17 07/09/17 18:57 19:00 19:10 20:54 Temp 97.5 97.5 97.5 97.5 Pulse 78 Resp 16 B/P (MAP) 164/89 (114) Pulse Ox 95 O2 Delivery Room Air Room Air Room Air 07/09/17 07/09/17 07/09/17 07/09/17 21:03 21:04 21:04 22:00 Temp 97.5 97.5 Pulse 164 78 78 78 Resp 16 B/P (MAP) 89/78 164/89 164/89 164/89 (114) O2 Delivery Room Air 07/09/17 07/10/17 07/10/17 07/10/17 23:00 01:00 01:55 02:55 Temp 97.9 97.9 97.9 97.9 Pulse 80 80 Resp 18 18 14 16 B/P (MAP) 169/80 (109) 169/80 (109) Pulse Ox 96 96 O2 Delivery Room Air Room Air BiPAP/CPAP BiPAP/CPAP 07/10/17 07/10/17 07/10/17 07/10/17 03:00 07:00 07:43 08:00 Temp 97.7 97.0 97.7 97.0 Pulse 80 78 Resp 18 18 B/P (MAP) 178/90 (119) 151/48 (82) Pulse Ox 100 96 97 O2 Delivery Room Air Room Air Room Air Room Air 07/10/17 07/10/17 07/10/17 07/10/17 08:51 08:51 09:00 11:50 Temp 97.0 97.3 97.0 97.3 Pulse 78 78 78 73 Resp 16 20 B/P (MAP) 151/48 151/48 151/48 (82) 153/67 Pulse Ox 97 93 O2 Delivery Room Air Room Air Intake and Output 07/09/17 07/09/17 07/10/17 15:00 23:00 07:00 Output Total 100 ml Balance -100 ml MARA ABEBE MD Jul 10, 2017 12:42
[2017-07-10] MEDS: MEROPENEM IV Push 500 MG VIAL. IVP SCH (13:00)
[2017-07-10] MEDS ORDERED: hydrALAZINE 20 MG/ML VIAL. ONE (13:16)
--- NOTE | 2017-07-10 14:27 | RAD ---
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 Surgical skin clips are present at the operative site. Scattered arterial calcifications are present. A surgical clip is present medially. There is no evidence of a retained surgical instrument, needle or radiopaque sponge on this single view.
[2017-07-10] MEDS: fentaNYL PF VIAL 100 MCG/2 ML VIAL IV PRN ×2 (14:43→14:54)
[2017-07-10] MEDS: PROCHLORPERAZINE 10 MG/2 ML VIAL. IV PRN ×2 (14:43→15:35)
[2017-07-10] MEDS: MORPHINE SULFATE 2 MG/ML DISP.SYRIN. IV PRN ×2 (14:55→15:05)
[2017-07-10] MEDS: HYDROmorphone 2 MG/ML VIAL IV PRN ×4 (15:13→15:58)
[2017-07-10] MEDS: MORPHINE SULFATE 4 MG/ML DISP.SYRIN. IV PRN (17:32)
[2017-07-10] MEDS: ATORVASTATIN CALCIUM 10 MG TABLET. PO SCH (21:41)
[2017-07-10] MEDS: LISINOPRIL 20 MG TABLET PO SCH (21:41)
[2017-07-10] MEDS: DOXAZOSIN MESYLATE 4 MG TABLET. PO SCH (21:41)
--- NOTE | 2017-07-10 21:41 | OP ---
DATE OF SURGERY: 07/10/2017 SURGEON: Jon Ponce MD SUPERVISOR LOADING: Kate Marquez. ANESTHESIA: General. PREOPERATIVE DIAGNOSES: 1. Chronic nonhealing wound, left foot, status post midfoot amputation with wound dehiscence. 2. Peripheral vascular disease. PROCEDURE PERFORMED: Left below knee amputation. COMPLICATIONS: None. ESTIMATED BLOOD LOSS: 250 mL. TOURNIQUET TIME: 24 minutes. FINDINGS: Chronic wound with wound dehiscence, left midfoot. REASON FOR PROCEDURE: The patient is a very pleasant 61-year-old gentleman well known to myself for chronic foot wounds. He has been followed by both myself and the wound care. He has a complicated medical history with cardiac and renal disease predominantly. He had presented with wound dehiscence after a midfoot amputation, had recommended be returned to the OR for a below-knee amputation and he could not consent to this. He was agreeable to further I and D and multiple treatments and in order to temporize just in given time, I felt that an I and D and wound VAC was reasonable. While inpatient, the wound care team and myself will discuss amputation with him and he finally elected to proceed. Therefore, we proceeded with below knee amputation on today's date. DESCRIPTION OF PROCEDURE: The patient was greeted in the preoperative area by myself where the correct extremity was marked and verified. He was taken to the operative suite. He was maintained on his routine antibiotics. Once in the OR, he was transferred gently supine to the operating room table and secured to the bed with all pressure points were padded. We then placed a nonsterile tourniquet to his left upper thigh. We then proceeded to prep and drape the left lower extremity in usual sterile fashion including Betadine paint. After this, we conducted a standard preoperative timeout. I then palpated for his knee joint and preet a line on his anterior tibial cortex skin with skin marker approximately 15 cm distal to this. I then created a fish mouth type drawing on his skin with a long posterior flap. After checking this circumferentially, I felt ready to proceed. Therefore, the leg was exsanguinated with gravity and tourniquet was insufflated to 250 mmHg. I then incised skin with the scalpel and using electrocautery for subcutaneous tissue and muscle working on the tibia first. I then continued my dissection medially and laterally as well as posteriorly. I incised around the fascia and deep to it. I exposed this fibular proximal to my level of planned tibial resection. After this, I used a saw to transect to the tibia followed by transecting his fibula proximal to this. I then smooth the rough bony edges. After this, I let the tourniquet down and tied off a couple of bleeders including his popliteal vessels and anterior tibial artery as well as respective veins with #2 silk ties. After achieving adequate hemostasis and ensuring no more venous arterial bleeding, I then directed my attention to irrigating out the operative field and then closed his gastrocnemius and its fascia to the fascia overlying the anterior tibia. After this, I continued closing his fascia to bring up the large posterior flap. It was tension free. I used an 0 Vicryl for this. I then used an inverted interrupted 2-0 for subcutaneous tissue and gilbert for skin. We then cleansed and dried his leg. I then placed Xeroform and a well padded soft dressing over his stump. He tolerated the procedure well. At the conclusion of the surgery, the final count was not correct; therefore, we brought in x-ray to confirm that there was no foreign material left in the operative field, which there was not. The patient was then awakened from anesthesia and transferred gently supine to his hospital bed and taken to the PACU in stable and extubated condition. Postoperative plan is to admit him back to the floor. Hospitalist will continue along in assisting with his care as well as Renal and Infectious Disease. I would recommend 24 hours of antibiotics following his amputation. We will see how he does after this and consider home with home health care versus placement. I spoke with [facility] who will fit him for postoperative amputation prosthesis. JON PONCE MD DR: ASUNCION/galen JOB#: [id number] / [id number] ANGELA
[2017-07-10] MEDS: INSULIN DETEMIR 300 UNITS/3 ML INSULN.PEN. SQ SCH (21:50)
[2017-07-10] MEDS: ZOLPIDEM 5 MG TABLET. PO SCH (21:51)
[2017-07-10] MEDS: traMADol 50 MG TABLET PO PRN (21:52)
[2017-07-11] VITALS (7 sets, daily range): BP systolic 137–157; BP diastolic 44–99
[2017-07-11] MEDS: SODIUM BICARBONATE 650 MG TABLET. PO SCH ×3 (06:03→16:37)
[2017-07-11 06:48] LABS: CREATININE 6.5 mg/dL (0.7-1.3); GFR 8.7; POTASSIUM 4.9 mmol/L (3.5-5.1)
[2017-07-11 06:54] LABS: BASO % 0 % (0-3); EOS % 0 % (0-3); HEMATOCRIT 26.6 % (39.0-53.0); HEMOGLOBIN 8.8 g/dL (13.0-17.5); LYMPH # 0.3 x10^3/uL (1.0-4.8); LYMPH % 3 % (24-48); MEAN CORPUSCULAR HEMOGLOBIN 33 pg (25-35); MEAN CORPUSCULAR HGB CONC 33 g/dL (31-37); MEAN CORPUSCULAR VOLUME 99 fL (79-100); MONO % 5 % (0-9); NEUT % 92 % (31-73); PLATELET COUNT 105 x10^3/uL (140-400); RED BLOOD COUNT 2.69 x10^6/uL (4.30-5.70); RED CELL DISTRIBUTION WIDTH 18.5 % (11.5-14.5); WHITE BLOOD COUNT 9.2 x10^3/uL (4.0-11.0)
[2017-07-11] MEDS: IPRATRPIUM/ALBUTEROL 0.5/2.5MG 3 ML NEBU. NEB SCH ×3 (07:02→21:44)
[2017-07-11] MEDS: INSULIN ASPART 300 UNITS/3 ML INSULN.PEN SQ SCH ×3 (08:00→18:32)
[2017-07-11 08:22] LABS: PLT ESTIMATE DECREASED (ADEQUATE)
[2017-07-11] MEDS: FERROUS SULFATE 325 MG TABLET. PO SCH (08:57)
[2017-07-11] MEDS: FUROSEMIDE 80 MG TABLET. PO SCH ×2 (08:57→14:18)
[2017-07-11] MEDS: ASPIRIN ENTERIC COATED 81 MG TABLET.DR. PO SCH (08:57)
[2017-07-11] MEDS: SENNOSIDES/DOCUSATE 8.6/50MG TABLET. PO SCH ×2 (08:57→20:54)
[2017-07-11] MEDS: DOCUSATE SODIUM 100 MG CAPSULE. PO SCH (08:57)
[2017-07-11] MEDS: FOLIC/VIT B COMP W-C (RENAL) TABLET. PO SCH (08:57)
[2017-07-11] MEDS: ALLOPURINOL 100 MG TABLET. PO SCH (08:57)
[2017-07-11] MEDS: TAMSULOSIN 0.4 MG CAP.ER.24H. PO SCH (08:57)
[2017-07-11] MEDS: LACTOBACILLUS RHAMNOSUS GG 1 CAPSULE. PO SCH ×2 (08:57→20:54)
[2017-07-11] MEDS: CHOLECALCIFEROL (VITAMIN D3) 1,000 UNIT TABLET PO SCH (08:58)
[2017-07-11] MEDS: cloNIDine HCL 0.2 MG TABLET PO SCH ×2 (08:58→20:55)
[2017-07-11] MEDS: CARVEDILOL 12.5 MG TABLET. PO SCH ×2 (08:59→16:37)
[2017-07-11] MEDS: POTASSIUM CHLORIDE 20 MEQ TABLET.ER. PO SCH ×2 (08:59→16:37)
[2017-07-11] MEDS: CALCIUM CARBONATE 500 MG TAB.CHEW PO SCH ×3 (08:59→16:36)
[2017-07-11] MEDS: HYDROcodone/APAP 7.5/325MG 1 TAB TABLET PO PRN ×3 (08:59→19:49)
[2017-07-11] MEDS: METOPROLOL SUCC 24HR ER 25 MG TAB.ER.24H. PO SCH (09:00)
[2017-07-11] MEDS: CALCIUM ACETATE 667 MG CAPSULE PO SCH ×3 (09:00→16:37)
--- NOTE | 2017-07-11 10:04 | PDOC ---
ORTHO PROGRESS NOTES Subjective He has been having a little bit more pain around his operative site. He denies any breathing trouble, or abdominal complaints. He is looking forward to going home soon Vitals Vital Signs Date Time Temp Pulse Resp B/P (MAP) Pulse Ox O2 Delivery O2 Flow Rate FiO2 07/11/17 09:00 80 138/66 07/11/17 08:59 Room Air 07/11/17 07:04 95 07/11/17 07:00 98.4 18 98.4 07/10/17 22:52 2.0 Labs Laboratory Tests Test 07/09/17 11:21 07/09/17 16:54 07/09/17 20:48 07/10/17 06:40 Glucose (Fingerstick) 146 mg/dL (70-99) 185 mg/dL (70-99) 209 mg/dL (70-99) White Blood Count 6.8 x10^3/uL (4.0-11.0) Red Blood Count 2.68 x10^6/uL (4.30-5.70) Hemoglobin 8.7 g/dL (13.0-17.5) Hematocrit 26.3 % (39.0-53.0) Mean Corpuscular Volume 98 fL (79-100) Mean Corpuscular Hemoglobin 33 pg (25-35) Mean Corpuscular Hemoglobin Concent 33 g/dL (31-37) Red Cell Distribution Width 19.1 % (11.5-14.5) Platelet Count 108 x10^3/uL (140-400) Neutrophils (%) (Auto) 85 % (31-73) Lymphocytes (%) (Auto) 5 % (24-48) Monocytes (%) (Auto) 5 % (0-9) Eosinophils (%) (Auto) 4 % (0-3) Basophils (%) (Auto) 0 % (0-3) Neutrophils # (Auto) 5.8 x10^3uL (1.8-7.7) Lymphocytes # (Auto) 0.4 x10^3/uL (1.0-4.8) Monocytes # (Auto) 0.4 x10^3/uL (0.0-1.1) Eosinophils # (Auto) 0.2 x10^3/uL (0.0-0.7) Basophils # (Auto) 0.0 x10^3/uL (0.0-0.2) Sodium Level 141 mmol/L (136-145) Potassium Level 4.1 mmol/L (3.5-5.1) Chloride Level 101 mmol/L (98-107) Carbon Dioxide Level 32 mmol/L (21-32) Anion Gap 8 (6-14) Blood Urea Nitrogen 72 mg/dL (8-26) Creatinine 6.1 mg/dL (0.7-1.3) Estimated GFR (Cockcroft-Gault) 9.4 Glucose Level 100 mg/dL (70-99) Calcium Level 8.3 mg/dL (8.5-10.1) Phosphorus Level 5.8 mg/dL (2.6-4.7) Albumin 2.4 g/dL (3.4-5.0) Test 07/10/17 07:39 07/10/17 11:26 07/10/17 14:40 07/10/17 16:29 Glucose (Fingerstick) 103 mg/dL (70-99) 153 mg/dL (70-99) 122 mg/dL (70-99) 187 mg/dL (70-99) Test 07/10/17 20:47 07/11/17 06:20 07/11/17 08:15 Glucose (Fingerstick) 245 mg/dL (70-99) 148 mg/dL (70-99) White Blood Count 9.2 x10^3/uL (4.0-11.0) Red Blood Count 2.69 x10^6/uL (4.30-5.70) Hemoglobin 8.8 g/dL (13.0-17.5) Hematocrit 26.6 % (39.0-53.0) Mean Corpuscular Volume 99 fL (79-100) Mean Corpuscular Hemoglobin 33 pg (25-35) Mean Corpuscular Hemoglobin Concent 33 g/dL (31-37) Red Cell Distribution Width 18.5 % (11.5-14.5) Platelet Count 105 x10^3/uL (140-400) Neutrophils (%) (Auto) 92 % (31-73) Lymphocytes (%) (Auto) 3 % (24-48) Monocytes (%) (Auto) 5 % (0-9) Eosinophils (%) (Auto) 0 % (0-3) Basophils (%) (Auto) 0 % (0-3) Neutrophils # (Auto) 8.5 x10^3uL (1.8-7.7) Lymphocytes # (Auto) 0.3 x10^3/uL (1.0-4.8) Monocytes # (Auto) 0.4 x10^3/uL (0.0-1.1) Eosinophils # (Auto) 0.0 x10^3/uL (0.0-0.7) Basophils # (Auto) 0.0 x10^3/uL (0.0-0.2) Segmented Neutrophils % 92 % (35-66) Band Neutrophils % 2 % (0-9) Lymphocytes % 1 % (24-48) Monocytes % 5 % (0-10) Platelet Estimate Decreased (ADEQUATE) Sodium Level 139 mmol/L (136-145) Potassium Level 4.9 mmol/L (3.5-5.1) Chloride Level 101 mmol/L (98-107) Carbon Dioxide Level 29 mmol/L (21-32) Anion Gap 9 (6-14) Blood Urea Nitrogen 75 mg/dL (8-26) Creatinine 6.5 mg/dL (0.7-1.3) Estimated GFR (Cockcroft-Gault) 8.7 Glucose Level 153 mg/dL (70-99) Calcium Level 8.0 mg/dL (8.5-10.1) Laboratory Tests Test 07/10/17 11:26 07/10/17 14:40 07/10/17 16:29 07/10/17 20:47 Glucose (Fingerstick) 153 mg/dL (70-99) 122 mg/dL (70-99) 187 mg/dL (70-99) 245 mg/dL (70-99) Test 07/11/17 06:20 07/11/17 08:15 White Blood Count 9.2 x10^3/uL (4.0-11.0) Red Blood Count 2.69 x10^6/uL (4.30-5.70) Hemoglobin 8.8 g/dL (13.0-17.5) Hematocrit 26.6 % (39.0-53.0) Mean Corpuscular Volume 99 fL (79-100) Mean Corpuscular Hemoglobin 33 pg (25-35) Mean Corpuscular Hemoglobin Concent 33 g/dL (31-37) Red Cell Distribution Width 18.5 % (11.5-14.5) Platelet Count 105 x10^3/uL (140-400) Neutrophils (%) (Auto) 92 % (31-73) Lymphocytes (%) (Auto) 3 % (24-48) Monocytes (%) (Auto) 5 % (0-9) Eosinophils (%) (Auto) 0 % (0-3) Basophils (%) (Auto) 0 % (0-3) Neutrophils # (Auto) 8.5 x10^3uL (1.8-7.7) Lymphocytes # (Auto) 0.3 x10^3/uL (1.0-4.8) Monocytes # (Auto) 0.4 x10^3/uL (0.0-1.1) Eosinophils # (Auto) 0.0 x10^3/uL (0.0-0.7) Basophils # (Auto) 0.0 x10^3/uL (0.0-0.2) Segmented Neutrophils % 92 % (35-66) Band Neutrophils % 2 % (0-9) Lymphocytes % 1 % (24-48) Monocytes % 5 % (0-10) Platelet Estimate Decreased (ADEQUATE) Sodium Level 139 mmol/L (136-145) Potassium Level 4.9 mmol/L (3.5-5.1) Chloride Level 101 mmol/L (98-107) Carbon Dioxide Level 29 mmol/L (21-32) Anion Gap 9 (6-14) Blood Urea Nitrogen 75 mg/dL (8-26) Creatinine 6.5 mg/dL (0.7-1.3) Estimated GFR (Cockcroft-Gault) 8.7 Glucose Level 153 mg/dL (70-99) Calcium Level 8.0 mg/dL (8.5-10.1) Glucose (Fingerstick) 148 mg/dL (70-99) Notes A and A dressing intact lying in bed Assessment and Plan Medical Device Engineer to fit amputation brace From my standpoint, he can go home later today JOSELITO PONCE II, MD Jul 11, 2017 10:04
--- NOTE | 2017-07-11 10:33 | PDOC ---
Infectious Disease Note Subjective Subjective Tryign to control the pain No N/V/F/C/S ROS ROS GEN: Denies fevers, chills, sweats HEENT: Denies blurred vision, sore throat CV: Denies chest pain RESP: Denies shortness of air, cough GI: Denies n/v/d NEURO: Denies confusion, dizziness MSK: Denies weakness, joint pain/swelling Vital Sign Vital Signs Vital Signs Date Time Temp Pulse Resp B/P (MAP) Pulse Ox O2 Delivery O2 Flow Rate FiO2 07/11/17 09:00 80 138/66 07/11/17 08:59 Room Air 07/11/17 07:04 95 07/11/17 07:00 98.4 18 98.4 07/10/17 22:52 2.0 Physical Exam PHYSICAL EXAM GENERAL: NAD, Alert, coop NECK: Supple, no JVD, no LN, pillow OC/Op - clear LUNGS: Clear HEART: S1S2, no gallop, no murmur ABD: Soft, NT, no organomegaly, no rebound, PD cath EXT: No edema, no cyanosis. L BKA dressed COMMUNICATIONS SYSTEMS ENGINEER: Alert, oriented x 3, no focal neurologic deficit SKIN: No rash IV: RUE - PICC Labs Lab Laboratory Tests Test 07/10/17 11:26 07/10/17 14:40 07/10/17 16:29 07/10/17 20:47 Glucose (Fingerstick) 153 mg/dL (70-99) 122 mg/dL (70-99) 187 mg/dL (70-99) 245 mg/dL (70-99) Test 07/11/17 06:20 07/11/17 08:15 White Blood Count 9.2 x10^3/uL (4.0-11.0) Red Blood Count 2.69 x10^6/uL (4.30-5.70) Hemoglobin 8.8 g/dL (13.0-17.5) Hematocrit 26.6 % (39.0-53.0) Mean Corpuscular Volume 99 fL (79-100) Mean Corpuscular Hemoglobin 33 pg (25-35) Mean Corpuscular Hemoglobin Concent 33 g/dL (31-37) Red Cell Distribution Width 18.5 % (11.5-14.5) Platelet Count 105 x10^3/uL (140-400) Neutrophils (%) (Auto) 92 % (31-73) Lymphocytes (%) (Auto) 3 % (24-48) Monocytes (%) (Auto) 5 % (0-9) Eosinophils (%) (Auto) 0 % (0-3) Basophils (%) (Auto) 0 % (0-3) Neutrophils # (Auto) 8.5 x10^3uL (1.8-7.7) Lymphocytes # (Auto) 0.3 x10^3/uL (1.0-4.8) Monocytes # (Auto) 0.4 x10^3/uL (0.0-1.1) Eosinophils # (Auto) 0.0 x10^3/uL (0.0-0.7) Basophils # (Auto) 0.0 x10^3/uL (0.0-0.2) Segmented Neutrophils % 92 % (35-66) Band Neutrophils % 2 % (0-9) Lymphocytes % 1 % (24-48) Monocytes % 5 % (0-10) Platelet Estimate Decreased (ADEQUATE) Sodium Level 139 mmol/L (136-145) Potassium Level 4.9 mmol/L (3.5-5.1) Chloride Level 101 mmol/L (98-107) Carbon Dioxide Level 29 mmol/L (21-32) Anion Gap 9 (6-14) Blood Urea Nitrogen 75 mg/dL (8-26) Creatinine 6.5 mg/dL (0.7-1.3) Estimated GFR (Cockcroft-Gault) 8.7 Glucose Level 153 mg/dL (70-99) Calcium Level 8.0 mg/dL (8.5-10.1) Glucose (Fingerstick) 148 mg/dL (70-99) Objective Assessment S/p L BKA 07/10 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 Lee. ESBL/MDR Klebsiella (S carbapenems & levofloxacin; I cipro otherwise resistant) End-stage renal disease, on peritoneal dialysis. Diabetes mellitus 2 with neuropathy. Coronary artery disease. 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 Acute on chronic anemia. History of recurrent gastrointestinal bleed. History of gastric ulcer, status post clip and epinephrine injection. History of chronic thrombocytopenia. PENICILLIN ALLERGY, has had amoxicillin and Zosyn in the past, tolerated it Plan Plan of Care Continue renally dosed Meropenem for today and then d/c Reviewed Dr. Lee's op note and today's progress note D/w NEELAM SANTANA MD Jul 11, 2017 10:33
--- NOTE | 2017-07-11 11:46 | PDOC ---
Renal-Progress Notes Subjective Notes Notes HAVING SOME PAIN History of Present Illness Hx of present illness STABLE Vitals Vitals Vital Signs Date Time Temp Pulse Resp B/P (MAP) Pulse Ox O2 Delivery O2 Flow Rate FiO2 07/11/17 09:00 80 138/66 07/11/17 08:59 Room Air 07/11/17 07:04 95 07/11/17 07:00 98.4 18 98.4 07/10/17 22:52 2.0 Weight Weight [ ] I.O. Intake and Output Intake and Output 07/11/17 07:00 Intake Total 50 ml Output Total 500 ml Balance -450 ml Intake Oral 50 ml Output Urine Total 250 ml Estimated Blood Loss 250 ml # Voids 1 Labs Labs Laboratory Tests Test 07/10/17 14:40 07/10/17 16:29 07/10/17 20:47 07/11/17 06:20 Glucose (Fingerstick) 122 mg/dL (70-99) 187 mg/dL (70-99) 245 mg/dL (70-99) White Blood Count 9.2 x10^3/uL (4.0-11.0) Red Blood Count 2.69 x10^6/uL (4.30-5.70) Hemoglobin 8.8 g/dL (13.0-17.5) Hematocrit 26.6 % (39.0-53.0) Mean Corpuscular Volume 99 fL (79-100) Mean Corpuscular Hemoglobin 33 pg (25-35) Mean Corpuscular Hemoglobin Concent 33 g/dL (31-37) Red Cell Distribution Width 18.5 % (11.5-14.5) Platelet Count 105 x10^3/uL (140-400) Neutrophils (%) (Auto) 92 % (31-73) Lymphocytes (%) (Auto) 3 % (24-48) Monocytes (%) (Auto) 5 % (0-9) Eosinophils (%) (Auto) 0 % (0-3) Basophils (%) (Auto) 0 % (0-3) Neutrophils # (Auto) 8.5 x10^3uL (1.8-7.7) Lymphocytes # (Auto) 0.3 x10^3/uL (1.0-4.8) Monocytes # (Auto) 0.4 x10^3/uL (0.0-1.1) Eosinophils # (Auto) 0.0 x10^3/uL (0.0-0.7) Basophils # (Auto) 0.0 x10^3/uL (0.0-0.2) Segmented Neutrophils % 92 % (35-66) Band Neutrophils % 2 % (0-9) Lymphocytes % 1 % (24-48) Monocytes % 5 % (0-10) Platelet Estimate Decreased (ADEQUATE) Sodium Level 139 mmol/L (136-145) Potassium Level 4.9 mmol/L (3.5-5.1) Chloride Level 101 mmol/L (98-107) Carbon Dioxide Level 29 mmol/L (21-32) Anion Gap 9 (6-14) Blood Urea Nitrogen 75 mg/dL (8-26) Creatinine 6.5 mg/dL (0.7-1.3) Estimated GFR (Cockcroft-Gault) 8.7 Glucose Level 153 mg/dL (70-99) Calcium Level 8.0 mg/dL (8.5-10.1) Test 07/11/17 08:15 Glucose (Fingerstick) 148 mg/dL (70-99) Micro Micro Microbiology 07/02/17 Anaerobic/Aerobic Culture - Final, Complete 07/02/17 Anaerobic Culture Result 1 (BELKIS) - Final, Complete 07/02/17 Aerobic Culture - Final, Complete 07/02/17 Aerobic Culture Result 1 (BELKIS) - Final, Complete Review of Systems Constitutional: yes: malaise, weakness, alert, oriented Ears/Nose/Throat: Yes: no symptom reported Eyes: Yes: no symptom reported Pulmonary: Yes no symptom reported Cardiovascular: Yes no symptom reported Gastrointestional: Yes: constipation Genitourinary: Yes: no symptom reported Musculoskeletal: Yes: muscle stiffness, muscle atrophy Skin: Yes no symptom reported Psychiatric/Neurological: Yes: no symptom reported Endocrine: Yes: no symptom reported Physical Exam General Appearance: no apparent distress Skin: warm Respiratory: bilateral CTA Heart: S1S2 Abdomen: soft, bowel sounds present Genitourinary: bladder flat Extremities: pulses present Neurology: alert, oriented Assessment Assessment IMP DM II HTN ANEMIA ESRD LEFT FOOT WOUND S/P LEFT BKA PLAN CONT CAPD PAIN CONTROL AWAITING PLACEMENT AT REHAB SUPPORTIVE CARE SYED DOTY MD Jul 11, 2017 11:46
[2017-07-11] MEDS: traMADol 50 MG TABLET PO PRN (12:44)
[2017-07-11] MEDS: MEROPENEM IV Push 500 MG VIAL. IVP SCH (13:22)
--- NOTE | 2017-07-11 14:38 | PDOC ---
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 recent left toes osteo post toes amputation with wound dehiscence recent Recurrent UGIB, s/p EGD, with gastric ulcer post clip and epi injection recent acute on chronic resp failure, post intubation, trach removed ESRD previous on PD,on short term of HD, back to PD now recent CAD with 3rd degree AVB with PPM/ICD DM2 ON insulin dysphagia resolved morbid obesity, BMI 32.5 acute on chronic anemia, esrd, gib h/o thrombocytopenia moderate malnutrition plan: fu with Renal, ID, ortho cont meropenum with ID increase lisinopril to 20mg daily, cont other HTN meds cont PD daily PTOT BKA on insulin for DM2, ssi thanks for asking for consult stable to dc from IM standpoint, focus on BKA wound care and abx History of Present Illness History of Present Illness Pt is a pleasant 61 year old male who presents with a klebsiella wound infection of the left foot. He is on meropenem for abx. He is currently on wound vac. Pt is also on dialysis and has a PICC line. Pt was seen at bedside resting comfortably in NAD. Pt is being followed by orthopedics, nephrology, and ID. Will continue abx, wound care, and dialysis. Will continue to monitor. ROS: no fever, chills, sob or chest pain feels ok high BP left foot wound has wound vac on, looks bad as per wound care BKA today Vitals Vitals Vital Signs Date Time Temp Pulse Resp B/P (MAP) Pulse Ox O2 Delivery O2 Flow Rate FiO2 07/11/17 14:19 Room Air 07/11/17 12:01 95 07/11/17 11:00 98.7 79 18 157/44 (81) 98.7 07/10/17 22:52 2.0 Physical Exam General: Alert, Oriented X3, Cooperative Heart: Regular rate, Normal S1, Normal S2 Lungs: Clear Abdomen: Soft Extremities: No clubbing, No cyanosis, No edema, Other (negative Homans) Skin: Other (left foot open sites at the medial and lateral extremes of previous midfoot incision. These 2 areas comprised majority of the wound. Large areas of central exposed bone are evident. Peripheral tissue does not demonstrate good granulation with the development of slough noted throughout the wound area.) Labs LABS Laboratory Tests Test 07/10/17 14:40 07/10/17 16:29 07/10/17 20:47 07/11/17 06:20 Glucose (Fingerstick) 122 mg/dL (70-99) 187 mg/dL (70-99) 245 mg/dL (70-99) White Blood Count 9.2 x10^3/uL (4.0-11.0) Red Blood Count 2.69 x10^6/uL (4.30-5.70) Hemoglobin 8.8 g/dL (13.0-17.5) Hematocrit 26.6 % (39.0-53.0) Mean Corpuscular Volume 99 fL (79-100) Mean Corpuscular Hemoglobin 33 pg (25-35) Mean Corpuscular Hemoglobin Concent 33 g/dL (31-37) Red Cell Distribution Width 18.5 % (11.5-14.5) Platelet Count 105 x10^3/uL (140-400) Neutrophils (%) (Auto) 92 % (31-73) Lymphocytes (%) (Auto) 3 % (24-48) Monocytes (%) (Auto) 5 % (0-9) Eosinophils (%) (Auto) 0 % (0-3) Basophils (%) (Auto) 0 % (0-3) Neutrophils # (Auto) 8.5 x10^3uL (1.8-7.7) Lymphocytes # (Auto) 0.3 x10^3/uL (1.0-4.8) Monocytes # (Auto) 0.4 x10^3/uL (0.0-1.1) Eosinophils # (Auto) 0.0 x10^3/uL (0.0-0.7) Basophils # (Auto) 0.0 x10^3/uL (0.0-0.2) Segmented Neutrophils % 92 % (35-66) Band Neutrophils % 2 % (0-9) Lymphocytes % 1 % (24-48) Monocytes % 5 % (0-10) Platelet Estimate Decreased (ADEQUATE) Sodium Level 139 mmol/L (136-145) Potassium Level 4.9 mmol/L (3.5-5.1) Chloride Level 101 mmol/L (98-107) Carbon Dioxide Level 29 mmol/L (21-32) Anion Gap 9 (6-14) Blood Urea Nitrogen 75 mg/dL (8-26) Creatinine 6.5 mg/dL (0.7-1.3) Estimated GFR (Cockcroft-Gault) 8.7 Glucose Level 153 mg/dL (70-99) Calcium Level 8.0 mg/dL (8.5-10.1) Test 07/11/17 08:15 07/11/17 11:34 Glucose (Fingerstick) 148 mg/dL (70-99) 190 mg/dL (70-99) Comment Review of Relevant I have reviewed the following items den (where applicable) has been applied. Labs Laboratory Tests Test 07/09/17 16:54 07/09/17 20:48 07/10/17 06:40 07/10/17 07:39 Glucose (Fingerstick) 185 mg/dL (70-99) 209 mg/dL (70-99) 103 mg/dL (70-99) White Blood Count 6.8 x10^3/uL (4.0-11.0) Red Blood Count 2.68 x10^6/uL (4.30-5.70) Hemoglobin 8.7 g/dL (13.0-17.5) Hematocrit 26.3 % (39.0-53.0) Mean Corpuscular Volume 98 fL (79-100) Mean Corpuscular Hemoglobin 33 pg (25-35) Mean Corpuscular Hemoglobin Concent 33 g/dL (31-37) Red Cell Distribution Width 19.1 % (11.5-14.5) Platelet Count 108 x10^3/uL (140-400) Neutrophils (%) (Auto) 85 % (31-73) Lymphocytes (%) (Auto) 5 % (24-48) Monocytes (%) (Auto) 5 % (0-9) Eosinophils (%) (Auto) 4 % (0-3) Basophils (%) (Auto) 0 % (0-3) Neutrophils # (Auto) 5.8 x10^3uL (1.8-7.7) Lymphocytes # (Auto) 0.4 x10^3/uL (1.0-4.8) Monocytes # (Auto) 0.4 x10^3/uL (0.0-1.1) Eosinophils # (Auto) 0.2 x10^3/uL (0.0-0.7) Basophils # (Auto) 0.0 x10^3/uL (0.0-0.2) Sodium Level 141 mmol/L (136-145) Potassium Level 4.1 mmol/L (3.5-5.1) Chloride Level 101 mmol/L (98-107) Carbon Dioxide Level 32 mmol/L (21-32) Anion Gap 8 (6-14) Blood Urea Nitrogen 72 mg/dL (8-26) Creatinine 6.1 mg/dL (0.7-1.3) Estimated GFR (Cockcroft-Gault) 9.4 Glucose Level 100 mg/dL (70-99) Calcium Level 8.3 mg/dL (8.5-10.1) Phosphorus Level 5.8 mg/dL (2.6-4.7) Albumin 2.4 g/dL (3.4-5.0) Test 07/10/17 11:26 07/10/17 14:40 07/10/17 16:29 07/10/17 20:47 Glucose (Fingerstick) 153 mg/dL (70-99) 122 mg/dL (70-99) 187 mg/dL (70-99) 245 mg/dL (70-99) Test 07/11/17 06:20 07/11/17 08:15 07/11/17 11:34 White Blood Count 9.2 x10^3/uL (4.0-11.0) Red Blood Count 2.69 x10^6/uL (4.30-5.70) Hemoglobin 8.8 g/dL (13.0-17.5) Hematocrit 26.6 % (39.0-53.0) Mean Corpuscular Volume 99 fL (79-100) Mean Corpuscular Hemoglobin 33 pg (25-35) Mean Corpuscular Hemoglobin Concent 33 g/dL (31-37) Red Cell Distribution Width 18.5 % (11.5-14.5) Platelet Count 105 x10^3/uL (140-400) Neutrophils (%) (Auto) 92 % (31-73) Lymphocytes (%) (Auto) 3 % (24-48) Monocytes (%) (Auto) 5 % (0-9) Eosinophils (%) (Auto) 0 % (0-3) Basophils (%) (Auto) 0 % (0-3) Neutrophils # (Auto) 8.5 x10^3uL (1.8-7.7) Lymphocytes # (Auto) 0.3 x10^3/uL (1.0-4.8) Monocytes # (Auto) 0.4 x10^3/uL (0.0-1.1) Eosinophils # (Auto) 0.0 x10^3/uL (0.0-0.7) Basophils # (Auto) 0.0 x10^3/uL (0.0-0.2) Segmented Neutrophils % 92 % (35-66) Band Neutrophils % 2 % (0-9) Lymphocytes % 1 % (24-48) Monocytes % 5 % (0-10) Platelet Estimate Decreased (ADEQUATE) Sodium Level 139 mmol/L (136-145) Potassium Level 4.9 mmol/L (3.5-5.1) Chloride Level 101 mmol/L (98-107) Carbon Dioxide Level 29 mmol/L (21-32) Anion Gap 9 (6-14) Blood Urea Nitrogen 75 mg/dL (8-26) Creatinine 6.5 mg/dL (0.7-1.3) Estimated GFR (Cockcroft-Gault) 8.7 Glucose Level 153 mg/dL (70-99) Calcium Level 8.0 mg/dL (8.5-10.1) Glucose (Fingerstick) 148 mg/dL (70-99) 190 mg/dL (70-99) Laboratory Tests Test 07/10/17 14:40 07/10/17 16:29 07/10/17 20:47 07/11/17 06:20 Glucose (Fingerstick) 122 mg/dL (70-99) 187 mg/dL (70-99) 245 mg/dL (70-99) White Blood Count 9.2 x10^3/uL (4.0-11.0) Red Blood Count 2.69 x10^6/uL (4.30-5.70) Hemoglobin 8.8 g/dL (13.0-17.5) Hematocrit 26.6 % (39.0-53.0) Mean Corpuscular Volume 99 fL (79-100) Mean Corpuscular Hemoglobin 33 pg (25-35) Mean Corpuscular Hemoglobin Concent 33 g/dL (31-37) Red Cell Distribution Width 18.5 % (11.5-14.5) Platelet Count 105 x10^3/uL (140-400) Neutrophils (%) (Auto) 92 % (31-73) Lymphocytes (%) (Auto) 3 % (24-48) Monocytes (%) (Auto) 5 % (0-9) Eosinophils (%) (Auto) 0 % (0-3) Basophils (%) (Auto) 0 % (0-3) Neutrophils # (Auto) 8.5 x10^3uL (1.8-7.7) Lymphocytes # (Auto) 0.3 x10^3/uL (1.0-4.8) Monocytes # (Auto) 0.4 x10^3/uL (0.0-1.1) Eosinophils # (Auto) 0.0 x10^3/uL (0.0-0.7) Basophils # (Auto) 0.0 x10^3/uL (0.0-0.2) Segmented Neutrophils % 92 % (35-66) Band Neutrophils % 2 % (0-9) Lymphocytes % 1 % (24-48) Monocytes % 5 % (0-10) Platelet Estimate Decreased (ADEQUATE) Sodium Level 139 mmol/L (136-145) Potassium Level 4.9 mmol/L (3.5-5.1) Chloride Level 101 mmol/L (98-107) Carbon Dioxide Level 29 mmol/L (21-32) Anion Gap 9 (6-14) Blood Urea Nitrogen 75 mg/dL (8-26) Creatinine 6.5 mg/dL (0.7-1.3) Estimated GFR (Cockcroft-Gault) 8.7 Glucose Level 153 mg/dL (70-99) Calcium Level 8.0 mg/dL (8.5-10.1) Test 07/11/17 08:15 07/11/17 11:34 Glucose (Fingerstick) 148 mg/dL (70-99) 190 mg/dL (70-99) Microbiology 07/02/17 Anaerobic/Aerobic Culture - Final, Complete 07/02/17 Anaerobic Culture Result 1 (BELKIS) - Final, Complete 07/02/17 Aerobic Culture - Final, Complete 07/02/17 Aerobic Culture Result 1 (BELKIS) - Final, Complete Medications Current Medications Ondansetron HCl (Zofran) 4 mg PRN Q6HRS PRN IV NAUSEA/VOMITING; Start 07/02/17 at 07:00; Stop 07/03/17 at 06:59; Status DC Fentanyl Citrate (Fentanyl 2ml Vial) 25 mcg PRN Q5MIN PRN IV MILD PAIN; Start 07/02/17 at 07:00; Stop 07/03/17 at 06:59; Status DC Fentanyl Citrate (Fentanyl 2ml Vial) 50 mcg PRN Q5MIN PRN IV MODERATE PAIN; Start 07/02/17 at 07:00; Stop 07/03/17 at 06:59; Status DC Morphine Sulfate 1 mg PRN Q10MIN PRN IV SEVERE PAIN; Start 07/02/17 at 07:00; Stop 07/03/17 at 06:59; Status DC Ringer's Solution 1,000 ml @ 30 mls/hr Q24H IV ; Start 07/02/17 at 07:00; Stop 07/02/17 at 18:59; Status DC Lidocaine HCl (Xylocaine-Mpf 1% Vial) 2 ml PRN 1X PRN ID IV START; Start at 07:00; Stop 07/03/17 at 06:59; Status DC Hydromorphone HCl (Dilaudid) 0.5 mg PRN Q10MIN PRN IV SEV PAIN, Second choice; Start 07/02/17 at 07:00; Stop 07/03/17 at 06:59; Status DC Prochlorperazine Edisylate (Compazine) 5 mg PACU PRN PRN IV NAUSEA, MRX1; Start 07/02/17 at 07:00; Stop 07/03/17 at 06:59; Status DC Lidocaine HCl 30 ml STK-MED ONCE .ROUTE ; Start 07/02/17 at 07:13; Stop at 07:14; Status DC Bupivacaine HCl (Sensorcaine Mpf 0.5%) 30 ml STK-MED ONCE .ROUTE ; Start at 07:13; Stop 07/02/17 at 07:14; Status DC Clindamycin Phosphate 50 ml @ As Directed STK-MED ONCE IV ; Start 07/02/17 at 08 :19; Stop 07/02/17 at 08:20; Status DC Al Hydroxide/Mg Hydroxide (Mylanta Plus Xs) 30 ml PRN Q3HRS PRN PO HEARTBURN / GAS; Start 07/02/17 at 08:30 Oxycodone HCl (Roxicodone) 5 mg PRN Q3HRS PRN PO BREAKTHROUGH PAIN; Start 07/02 at 08:30 Morphine Sulfate 1 mg PRN Q1HR PRN IV PAIN; Start 07/02/17 at 08:30 Acetaminophen/ Hydrocodone Bitart (Lortab 5/325) 1 tab PRN Q4HRS PRN PO MODERATE - SEVERE PAIN Last administered on 07/10/17 01:55; Start 07/02/17 at 08:30 Senna/Docusate Sodium (Senna Plus) 1 tab BID PO Last administered on 08:57; Start 07/02/17 at 10:00 Magnesium Hydroxide (Milk Of Magnesia) 2,400 mg PRN Q12HR PRN PO CONSTIPATION; Start 07/02/17 at 08:30 Sodium Chloride 1,000 ml @ 100 mls/hr Q10H IV Last administered on 07/02/17 08:51; Start 07/02/17 at 08:30; Stop 07/03/17 at 10:02; Status DC Allopurinol (Zyloprim) 100 mg DAILY PO Last administered on 07/11/17 08:57; Start 07/02/17 at 09:00 Aspirin (Ecotrin) 81 mg DAILY PO Last administered on 07/11/17 08:57; Start 07/02/17 at 09:00 Vitamin D (Vitamin D3) 1,000 unit DAILY PO Last administered on 07/11/17 08: 58; Start 07/02/17 at 09:00 Clonidine HCl (Catapres) 0.2 mg BID PO Last administered on 07/11/17 08:58; Start 07/02/17 at 09:00 Darbepoetin Fredi (Aranesp) 60 mcg Sa SQ ; Start 07/05/17 at 21:00; Stop at 21:00; Status DC Docusate Sodium (Colace) 200 mg DAILY PO Last administered on 07/11/17 08:57 ; Start 07/02/17 at 10:00 Doxazosin Mesylate (Cardura) 4 mg HS PO Last administered on 07/10/17 21:41; Start 07/02/17 at 21:00 Ferrous Sulfate (Feosol) 325 mg DAILYWBKFT PO Last administered on 07/11/17 08:57; Start 07/02/17 at 09:00 Vitamin B Complex/ Vitamin C (Richelle-Harsha) 1 tab DAILY PO Last administered on 08:57; Start 07/02/17 at 09:00 Furosemide (Lasix) 80 mg BID92 PO Last administered on 07/11/17 14:18; Start 07/02/17 at 09:00 Albuterol/ Ipratropium (Duoneb) 3 ml TID NEB Last administered on 07/11/17 13 :02; Start 07/02/17 at 09:00 Lisinopril (Prinivil) 5 mg HS PO Last administered on 07/06/17 22:26; Start 07/02/17 at 21:00; Stop 07/07/17 at 13:59; Status DC Metoprolol Succinate (Toprol Xl) 25 mg DAILY PO Last administered on 09:00; Start 07/02/17 at 09:00 Sodium Bicarbonate (Sodium Bicarbonate) 650 mg TIDAC PO Last administered on 12:44; Start 07/02/17 at 11:30 Tamsulosin HCl (Flomax) 0.4 mg DAILY PO Last administered on 07/11/17 08:57; Start 07/02/17 at 09:00 Calcium Acetate (Phoslo) 667 mg TIDWMEALS PO Last administered on 07/11/17 12 :44; Start 07/02/17 at 12:00 Calcium Carbonate/ Glycine (Tums) 500 mg TIDWMEALS PO Last administered on 12:44; Start 07/02/17 at 12:00 Carvedilol (Coreg) 25 mg BIDWMEALS PO Last administered on 07/11/17 08:59; Start 07/02/17 at 17:00 Insulin Detemir (Levemir) 20 units QHS SQ Last administered on 07/10/17 21:50 ; Start 07/02/17 at 21:00 Potassium Chloride (Klor-Con) 20 meq BIDWMEALS PO Last administered on 09:14; Start 07/02/17 at 10:00; Stop 07/03/17 at 10:02; Status DC Atorvastatin Calcium (Lipitor) 5 mg QHS PO Last administered on 07/10/17 21: 41; Start 07/02/17 at 21:00 Non-Formulary Medication 400 mg BID PO ; Start 07/02/17 at 09:00; Stop 07/02/17 at 10:20; Status DC Zolpidem Tartrate (Ambien) 5 mg PRN QHS PRN PO INSOMNIA; Start 07/02/17 at 10: 15 Insulin Aspart (NovoLOG) 0-5 UNITS TIDWMEALS SQ Last administered on 07/02/17 17:22; Start 07/02/17 at 12:00; Stop 07/03/17 at 08:59; Status DC Dextrose (Dextrose 50%-Water Syringe) 12.5 gm PRN Q15MIN PRN IV SEE COMMENTS; Start 07/02/17 at 08:30; Stop 07/03/17 at 14:12; Status DC Clindamycin Phosphate 50 ml @ 100 mls/hr 1X ONCE IV ; Start 07/02/17 at 08:45 ; Stop 07/02/17 at 09:03; Status DC Propofol 20 ml @ As Directed STK-MED ONCE IV ; Start 07/02/17 at 08:44; Stop at 08:45; Status DC Lidocaine HCl (Lidocaine Pf 2% Vial) 5 ml STK-MED ONCE .ROUTE ; Start 07/02/17 at 08:44; Stop 07/02/17 at 08:45; Status DC Midazolam HCl (Versed) 2 mg STK-MED ONCE .ROUTE ; Start 07/02/17 at 08:45; Stop 07/02/17 at 08:46; Status DC Ephedrine Sulfate (Akovaz) 50 mg STK-MED ONCE .ROUTE ; Start 07/02/17 at 09:28; Stop 07/02/17 at 09:29; Status DC Phenylephrine HCl (Krunal-Synephrine Inj) 10 mg STK-MED ONCE .ROUTE ; Start at 09:37; Stop 07/02/17 at 09:38; Status DC Dexamethasone Sodium Phosphate (Decadron) 20 mg STK-MED ONCE .ROUTE ; Start 07/02/17 at 09:37; Stop 07/02/17 at 09:38; Status DC Ondansetron HCl (Zofran) 4 mg STK-MED ONCE .ROUTE ; Start 07/02/17 at 09:37; Stop 07/02/17 at 09:38; Status DC Sevoflurane (Ultane) 15 ml STK-MED ONCE IH ; Start 07/02/17 at 09:53; Stop 07/02 at 09:54; Status DC Zolpidem Tartrate (Ambien) 5 mg QHS PO Last administered on 07/10/17 21:51; Start 07/02/17 at 21:00 Acetaminophen (Tylenol) 650 mg PRN Q6HRS PRN PO FEVER Last administered on 21:02; Start 07/02/17 at 15:45 Ondansetron HCl (Zofran) 4 mg PRN Q6HRS PRN IV NAUSEA/VOMITING; Start 07/02/17 at 15:45 Morphine Sulfate 2 mg PRN Q2HR PRN IV PAIN Last administered on 07/10/17 17: 32; Start 07/02/17 at 15:45 Tramadol HCl (Ultram) 50 mg PRN Q6HRS PRN PO MILD PAIN Last administered on 12:44; Start 07/02/17 at 15:45 Hydralazine HCl (Apresoline Inj) 10 mg PRN Q4HRS PRN IVP ELEVATED BP, SEE COMMENTS; Start 07/02/17 at 15:45 Docusate Sodium (Colace) 100 mg PRN DAILY PRN PO CONSTIPATION; Start 07/02/17 at 15:45 Insulin Aspart (NovoLOG) 0-9 UNITS TIDWMEALS SQ Last administered on 12:52; Start 07/03/17 at 12:00 Dextrose (Dextrose 50%-Water Syringe) 12.5 gm PRN Q15MIN PRN IV SEE COMMENTS; Start 07/03/17 at 09:00 Magnesium Sulfate/ Dextrose 50 ml @ 25 mls/hr PRN DAILY PRN IV for Mag < 1.7 on am labs; Start 07/03/17 at 09:15 Clindamycin Phosphate (Cleocin 900mg Premix) 900 mg STK-MED ONCE IV ; Start 07/02/17 at 08:00; Stop 07/03/17 at 09:11; Status DC Insulin Aspart (NovoLOG) 5 units 1X ONCE SQ Last administered on 07/03/17 09: 46; Start 07/03/17 at 09:30; Stop 07/03/17 at 09:31; Status DC Potassium Chloride (Klor-Con) 20 meq BIDWMEALS PO Last administered on 08:59; Start 07/03/17 at 17:00 Ciprofloxacin/ Dextrose 200 ml @ 200 mls/hr DAILY IV ; Start 07/03/17 at 14:00 ; Stop 07/03/17 at 14:38; Status DC Ciprofloxacin/ Dextrose 200 ml @ 200 mls/hr Q18H IV ; Start 07/04/17 at 09:00 ; Stop 07/04/17 at 11:51; Status DC Ciprofloxacin/ Dextrose 200 ml @ 200 mls/hr 1X ONCE IV Last administered on 07/03/17 16:24; Start 07/03/17 at 15:30; Stop 07/04/17 at 11:51; Status DC Magnesium Sulfate/ Dextrose 50 ml @ 25 mls/hr 1X ONCE IV Last administered on 07/04/17 11:41; Start 07/04/17 at 10:30; Stop 07/04/17 at 12:29; Status DC Ertapenem 0.5 gm/ Sodium Chloride 50 ml @ 100 mls/hr DAILY08 IV ; Start at 08:00; Status UNV Meropenem (Merrem) 500 mg Q24H IVP Last administered on 07/11/17 13:22; Start 07/04/17 at 13:00; Stop 07/11/17 at 14:00; Status DC Darbepoetin Fredi (Aranesp) 100 mcg QSA@2100 SQ Last administered on 07/05/17 22:15; Start 07/05/17 at 21:00 Lactobacillus Rhamnosus (Culturelle) 1 cap BID PO Last administered on 08:57; Start 07/06/17 at 21:00 Lisinopril (Prinivil) 10 mg QHS PO Last administered on 07/07/17 20:59; Start 07/07/17 at 21:00; Stop 07/08/17 at 14:45; Status DC Polyethylene Glycol (miraLAX PACKET) 17 gm PRN DAILY PRN PO CONSTIPATION Last administered on 07/07/17 21:15; Start 07/07/17 at 21:00 Lisinopril (Prinivil) 20 mg QHS PO Last administered on 07/10/17 21:41; Start 07/08/17 at 21:00 Ondansetron HCl (Zofran) 4 mg PRN Q6HRS PRN IV NAUSEA/VOMITING; Start at 07:00; Stop 07/10/17 at 06:59; Status DC Fentanyl Citrate (Fentanyl 2ml Vial) 25 mcg PRN Q5MIN PRN IV MILD PAIN; Start 07/09/17 at 07:00; Stop 07/10/17 at 06:59; Status DC Fentanyl Citrate (Fentanyl 2ml Vial) 50 mcg PRN Q5MIN PRN IV MODERATE PAIN; Start 07/09/17 at 07:00; Stop 07/10/17 at 06:59; Status DC Morphine Sulfate 1 mg PRN Q10MIN PRN IV SEVERE PAIN; Start 07/09/17 at 07:00; Stop 07/10/17 at 06:59; Status DC Ringer's Solution 1,000 ml @ 30 mls/hr Q24H IV ; Start 07/09/17 at 07:00; Stop 07/09/17 at 18:59; Status Cancel Lidocaine HCl (Xylocaine-Mpf 1% Vial) 2 ml PRN 1X PRN ID IV START; Start 07/09 at 07:00; Stop 07/10/17 at 06:59; Status DC Hydromorphone HCl (Dilaudid) 0.5 mg PRN Q10MIN PRN IV SEV PAIN, Second choice; Start 07/09/17 at 07:00; Stop 07/10/17 at 06:59; Status DC Prochlorperazine Edisylate (Compazine) 5 mg PACU PRN PRN IV NAUSEA, MRX1; Start 07/09/17 at 07:00; Stop 07/10/17 at 06:59; Status DC Ondansetron HCl (Zofran) 4 mg PRN Q6HRS PRN IV NAUSEA/VOMITING; Start at 07:00; Stop 07/11/17 at 06:59; Status DC Fentanyl Citrate (Fentanyl 2ml Vial) 25 mcg PRN Q5MIN PRN IV MILD PAIN; Start 07/10/17 at 07:00; Stop 07/11/17 at 06:59; Status DC Fentanyl Citrate (Fentanyl 2ml Vial) 50 mcg PRN Q5MIN PRN IV MODERATE PAIN Last administered on 07/10/17 14:54; Start 07/10/17 at 07:00; Stop 07/11/17 at 06:59; Status DC Morphine Sulfate 1 mg PRN Q10MIN PRN IV SEVERE PAIN Last administered on 15:05; Start 07/10/17 at 07:00; Stop 07/11/17 at 06:59; Status DC Ringer's Solution 1,000 ml @ 30 mls/hr Q24H IV ; Start 07/10/17 at 07:00; Stop 07/10/17 at 18:59; Status DC Lidocaine HCl (Xylocaine-Mpf 1% Vial) 2 ml PRN 1X PRN ID IV START; Start 07/10 at 07:00; Stop 07/11/17 at 06:59; Status DC Hydromorphone HCl (Dilaudid) 0.5 mg PRN Q10MIN PRN IV SEV PAIN, Second choice Last administered on 07/10/17 15:58; Start 07/10/17 at 07:00; Stop 07/11/17 at 06:59; Status DC Prochlorperazine Edisylate (Compazine) 5 mg PACU PRN PRN IV NAUSEA, MRX1 Last administered on 07/10/17 15:35; Start 07/10/17 at 07:00; Stop 07/11/17 at 06 :59; Status DC Sevoflurane (Ultane) 60 ml STK-MED ONCE IH ; Start 07/10/17 at 11:08; Stop at 11:09; Status DC Fentanyl Citrate (Fentanyl 2ml Vial) 100 mcg STK-MED ONCE .ROUTE ; Start at 11:11; Stop 07/10/17 at 11:12; Status DC Propofol 0 ml @ As Directed STK-MED ONCE IV ; Start 07/10/17 at 11:11; Stop at 11:12; Status DC Lidocaine HCl (Lidocaine Pf 2% Vial) 5 ml STK-MED ONCE .ROUTE ; Start 07/10/17 at 11:11; Stop 07/10/17 at 11:12; Status DC Dexamethasone Sodium Phosphate (Decadron) 20 mg STK-MED ONCE .ROUTE ; Start at 11:11; Stop 07/10/17 at 11:12; Status DC Ondansetron HCl (Zofran) 4 mg STK-MED ONCE .ROUTE ; Start 07/10/17 at 11:11; Stop 07/10/17 at 11:12; Status DC Etomidate (Amidate) 20 mg STK-MED ONCE IV ; Start 07/10/17 at 11:48; Stop at 11:49; Status DC Ephedrine Sulfate (Akovaz) 50 mg STK-MED ONCE .ROUTE ; Start 07/10/17 at 12:52 ; Stop 07/10/17 at 12:53; Status DC Hydralazine HCl (Apresoline Inj) 20 mg STK-MED ONCE .ROUTE ; Start 07/10/17 at 13:16; Stop 07/10/17 at 13:17; Status DC Fentanyl Citrate (Fentanyl 2ml Vial) 100 mcg STK-MED ONCE .ROUTE ; Start at 13:17; Stop 07/10/17 at 13:18; Status DC Acetaminophen/ Hydrocodone Bitart (Lortab 7.5/325) 1 tab PRN Q4HRS PRN PO PAIN Last administered on 07/11/17t 14:19; Start 07/11/17 at 08:15 Active Scripts Active Reported Carvedilol 25 Mg Tablet 1 Tab PO BID Coq-10 (Ubidecarenone) 100 Mg Capsule 400 Mg PO BID Krill Oil 500 mg Softgel (Krill/Om-3/Dha/Epa/Phospho/Ast) 1 Each Capsule 1 Each PO DAILY Vitamin D3 (Cholecalciferol (Vitamin D3)) 1,000 Unit Tablet 1 Tab PO DAILY Potassium Chloride 20 Meq Tablet.er 20 Meq PO BID Metoprolol Succinate ( Xl ) (Metoprolol Succinate) 25 Mg Tab.er.24h 1 Tab PO DAILY Calcium Acetate 667 Mg Tablet 1,334 Mg PO TIDWMEALS Ambien (Zolpidem Tartrate) 10 Mg Tablet 1 Tab PO QHS Humalog (Insulin Lispro) 100 Unit/1 Ml Cartridge 0 SQ Doxazosin Mesylate 4 Mg Tablet 4 Mg PO HS Nephro-Harsha Tablet (Folic Acid/Vitamin B Comp W-C) 0.8 Mg Tablet 1 Tab PO DAILY Aspir 81 (Aspirin) 81 Mg Tablet.dr 1 Tab PO DAILY Furosemide 80 Mg Tablet 80 Mg PO BID Sodium Bicarbonate 650 Mg Tablet 1 Tab PO TIDAC Artificial Tears Eye Drops (Dextran 70/Hypromellose) 15 Ml Drops 1 Drop EACHEYE BID Pravastatin Sodium 10 Mg Tablet 1 Tab PO QHS Tamsulosin Hcl 0.4 Mg Cap.er.24h 1 Cap PO DAILY Docusate Sodium 100 Mg Capsule 200 Mg PO DAILY Aranesp Syringe (Darbepoetin Fredi In Polysorbat) 60 Mcg/0.3 Ml Disp.syrin 60 Mcg SQ WEEKLY Ferrous Sulfate 325 Mg Tablet 1 Tab PO DAILY Duoneb 0.5-3(2.5) Mg/3 Ml (Albuterol/Ipratropium) 3 Ml Ampul.neb 3 Ml NEB TID Tums Ultra (Calcium Carbonate) 400 Mg Tab.chew 500 Mg PO TID Allopurinol 100 Mg Tablet 1 Tab PO DAILY Clonidine Hcl 0.2 Mg Tablet 1 Tab PO PRN TAKES ONLY IF HIS BLOOD PRESSURE IS ELEVATED Lisinopril 5 Mg Tablet 1 Tab PO HS Levemir (Insulin Detemir) 100 Unit/1 Ml Vial 20 Unit SQ HS Vitals/I & O Vital Sign - Last 24 Hours 07/10/17 07/10/17 07/10/17 07/10/17 14:43 14:50 14:54 14:55 Pulse 79 Resp 12 12 12 12 B/P (MAP) 137/51 Pulse Ox 100 O2 Delivery Simple Mask O2 Flow Rate 10 07/10/17 07/10/17 07/10/17 07/10/17 15:05 15:05 15:13 15:20 Pulse 84 84 Resp 12 12 12 14 B/P (MAP) 155/69 164/91 Pulse Ox 94 94 O2 Delivery Room Air Room Air Nasal Cannula O2 Flow Rate 2 07/10/17 07/10/17 07/10/17 07/10/17 15:23 15:35 15:35 15:50 Temp 97.4 97.4 Pulse 83 83 Resp 12 14 12 12 B/P (MAP) 183/61 163/44 Pulse Ox 94 96 O2 Delivery Nasal Cannula Nasal Cannula Nasal Cannula Nasal Cannula O2 Flow Rate 2.0 3.0 3 3 17 07/10/17 07/10/17 17 15:58 16:30 16:45 17:00 Temp 98.2 98.2 Pulse 82 82 80 Resp 12 18 18 18 B/P (MAP) 154/56 (88) 160/56 (90) 183/53 (96) Pulse Ox 97 97 98 O2 Delivery Nasal Cannula Nasal Cannula Nasal Cannula O2 Flow Rate 2.0 07/10/17 07/10/1717 17 17:15 17:30 17:32 17:45 Pulse 83 83 84 Resp 18 18 B/P (MAP) 195/47 (96) 163/44 167/35 (79) Pulse Ox 98 96 97 O2 Delivery Nasal Cannula Nasal Cannula Nasal Cannula O2 Flow Rate 3.0 07/10/17 07/10/1717 07/10/17 18:15 18:28 19:15 20:00 Pulse 83 82 Resp 18 18 B/P (MAP) 191/54 (99) 183/46 (91) Pulse Ox 98 96 99 O2 Delivery Nasal Cannula Nasal Cannula Nasal Cannula Nasal Cannula O2 Flow Rate 3.0 2.5 2.0 07/10/17 07/10/17 07/10/17 07/10/17 20:15 20:22 21:41 21:41 Pulse 85 83 83 Resp 18 B/P (MAP) 180/52 (94) 191/54 191/54 Pulse Ox 96 100 O2 Delivery Nasal Cannula Nasal Cannula O2 Flow Rate 2.5 2.0 07/10/17 07/10/17 07/10/17 07/10/17 21:42 21:52 22:52 23:00 Temp 97.7 97.7 Pulse 83 81 Resp 20 20 18 B/P (MAP) 191/54 150/98 (115) Pulse Ox 100 100 99 O2 Delivery Nasal Cannula BiPAP/CPAP O2 Flow Rate 2.0 2.0 07/11/17 07/11/17 07/11/17 07/11/17 03:00 07:00 07:04 08:15 Temp 99.5 98.4 99.5 98.4 Pulse 84 80 Resp 18 18 B/P (MAP) 154/65 (94) 138/66 (90) Pulse Ox 100 96 95 O2 Delivery BiPAP/CPAP Room Air Room Air Room Air 07/11/17 07/11/17 07/11/17 07/11/17 08:58 08:59 08:59 09:00 Pulse 80 80 80 B/P (MAP) 138/66 138/66 138/66 O2 Delivery Room Air 07/11/17 07/11/17 07/11/17 07/11/17 09:00 11:00 12:01 12:44 Temp 98.4 98.7 98.4 98.7 Pulse 80 79 Resp 18 B/P (MAP) 138/66 (90) 157/44 (81) Pulse Ox 95 95 95 O2 Delivery Room Air Room Air Room Air Room Air 07/11/17 07/11/17 07/11/17 13:03 14:03 14:19 O2 Delivery Room Air Room Air Room Air Intake and Output 07/10/17 07/10/17 07/11/17 15:00 23:00 07:00 Intake Total 50 ml 0 ml Output Total 350 ml 150 ml Balance -300 ml -150 ml MARA ABEBE MD Jul 11, 2017 14:38
[2017-07-11] MEDS: DOXAZOSIN MESYLATE 4 MG TABLET. PO SCH (20:53)
[2017-07-11] MEDS: ATORVASTATIN CALCIUM 10 MG TABLET. PO SCH (20:54)
[2017-07-11] MEDS: LISINOPRIL 20 MG TABLET PO SCH (20:56)
[2017-07-11] MEDS: ZOLPIDEM 5 MG TABLET. PO SCH (20:56)
[2017-07-11] MEDS: INSULIN DETEMIR 300 UNITS/3 ML INSULN.PEN. SQ SCH (21:02)
[2017-07-12] VITALS (9 sets, daily range): BP systolic 130–141; BP diastolic 40–83
[2017-07-12] MEDS: HYDROcodone/APAP 7.5/325MG 1 TAB TABLET PO PRN ×4 (02:08→17:40)
[2017-07-12] MEDS: IPRATRPIUM/ALBUTEROL 0.5/2.5MG 3 ML NEBU. NEB SCH ×3 (06:05→19:26)
[2017-07-12 06:24] LABS: CALCIUM 7.8 mg/dL (8.5-10.1); CREATININE 6.7 mg/dL (0.7-1.3); GFR 8.4; POTASSIUM 4.7 mmol/L (3.5-5.1)
[2017-07-12] MEDS: SODIUM BICARBONATE 650 MG TABLET. PO SCH ×3 (06:24→17:31)
[2017-07-12 06:47] LABS: BASO % 0 % (0-3); EOS % 2 % (0-3); HEMATOCRIT 24.8 % (39.0-53.0); HEMOGLOBIN 8.1 g/dL (13.0-17.5); LYMPH # 0.4 x10^3/uL (1.0-4.8); LYMPH % 6 % (24-48); MEAN CORPUSCULAR HEMOGLOBIN 32 pg (25-35); MEAN CORPUSCULAR HGB CONC 33 g/dL (31-37); MEAN CORPUSCULAR VOLUME 99 fL (79-100); MONO % 7 % (0-9); NEUT % 86 % (31-73); PLATELET COUNT 90 x10^3/uL (140-400); RED BLOOD COUNT 2.52 x10^6/uL (4.30-5.70); RED CELL DISTRIBUTION WIDTH 19.7 % (11.5-14.5); WHITE BLOOD COUNT 7.9 x10^3/uL (4.0-11.0)
[2017-07-12] MEDS: INSULIN ASPART 300 UNITS/3 ML INSULN.PEN SQ SCH ×3 (08:00→17:39)
[2017-07-12] MEDS: POTASSIUM CHLORIDE 20 MEQ TABLET.ER. PO SCH ×3 (08:00→17:00)
[2017-07-12] MEDS: CHOLECALCIFEROL (VITAMIN D3) 1,000 UNIT TABLET PO SCH (08:18)
[2017-07-12] MEDS: DOCUSATE SODIUM 100 MG CAPSULE. PO SCH (08:18)
[2017-07-12] MEDS: ALLOPURINOL 100 MG TABLET. PO SCH (08:19)
[2017-07-12] MEDS: FUROSEMIDE 80 MG TABLET. PO SCH ×2 (08:19→14:22)
[2017-07-12] MEDS: FOLIC/VIT B COMP W-C (RENAL) TABLET. PO SCH (08:19)
[2017-07-12] MEDS: CALCIUM ACETATE 667 MG CAPSULE PO SCH ×3 (08:19→17:31)
[2017-07-12] MEDS: LACTOBACILLUS RHAMNOSUS GG 1 CAPSULE. PO SCH ×2 (08:19→21:41)
[2017-07-12] MEDS: CALCIUM CARBONATE 500 MG TAB.CHEW PO SCH ×3 (08:19→17:31)
[2017-07-12] MEDS: SENNOSIDES/DOCUSATE 8.6/50MG TABLET. PO SCH ×2 (08:19→21:42)
[2017-07-12] MEDS: FERROUS SULFATE 325 MG TABLET. PO SCH (08:19)
[2017-07-12] MEDS: ASPIRIN ENTERIC COATED 81 MG TABLET.DR. PO SCH (08:19)
[2017-07-12] MEDS: METOPROLOL SUCC 24HR ER 25 MG TAB.ER.24H. PO SCH (08:20)
[2017-07-12] MEDS: cloNIDine HCL 0.2 MG TABLET PO SCH ×2 (08:20→21:46)
[2017-07-12] MEDS: CARVEDILOL 12.5 MG TABLET. PO SCH ×2 (08:21→17:32)
[2017-07-12] MEDS: TAMSULOSIN 0.4 MG CAP.ER.24H. PO SCH (08:23)
--- NOTE | 2017-07-12 11:24 | PDOC ---
ORTHO PROGRESS NOTES Subjective Pain better today. No complaints. Vitals Vital Signs Date Time Temp Pulse Resp B/P (MAP) Pulse Ox O2 Delivery O2 Flow Rate FiO2 07/12/17 11:00 94 Room Air 07/12/17 08:21 83 130/56 07/12/17 08:00 97.5 97.5 07/12/17 07:00 16 07/11/17 15:00 2.0 Labs Laboratory Tests Test 07/10/17 11:26 07/10/17 14:40 07/10/17 16:29 07/10/17 20:47 Glucose (Fingerstick) 153 mg/dL (70-99) 122 mg/dL (70-99) 187 mg/dL (70-99) 245 mg/dL (70-99) Test 07/11/17 06:20 07/11/17 08:15 07/11/17 11:34 07/11/17 16:52 White Blood Count 9.2 x10^3/uL (4.0-11.0) Red Blood Count 2.69 x10^6/uL (4.30-5.70) Hemoglobin 8.8 g/dL (13.0-17.5) Hematocrit 26.6 % (39.0-53.0) Mean Corpuscular Volume 99 fL (79-100) Mean Corpuscular Hemoglobin 33 pg (25-35) Mean Corpuscular Hemoglobin Concent 33 g/dL (31-37) Red Cell Distribution Width 18.5 % (11.5-14.5) Platelet Count 105 x10^3/uL (140-400) Neutrophils (%) (Auto) 92 % (31-73) Lymphocytes (%) (Auto) 3 % (24-48) Monocytes (%) (Auto) 5 % (0-9) Eosinophils (%) (Auto) 0 % (0-3) Basophils (%) (Auto) 0 % (0-3) Neutrophils # (Auto) 8.5 x10^3uL (1.8-7.7) Lymphocytes # (Auto) 0.3 x10^3/uL (1.0-4.8) Monocytes # (Auto) 0.4 x10^3/uL (0.0-1.1) Eosinophils # (Auto) 0.0 x10^3/uL (0.0-0.7) Basophils # (Auto) 0.0 x10^3/uL (0.0-0.2) Segmented Neutrophils % 92 % (35-66) Band Neutrophils % 2 % (0-9) Lymphocytes % 1 % (24-48) Monocytes % 5 % (0-10) Platelet Estimate Decreased (ADEQUATE) Sodium Level 139 mmol/L (136-145) Potassium Level 4.9 mmol/L (3.5-5.1) Chloride Level 101 mmol/L (98-107) Carbon Dioxide Level 29 mmol/L (21-32) Anion Gap 9 (6-14) Blood Urea Nitrogen 75 mg/dL (8-26) Creatinine 6.5 mg/dL (0.7-1.3) Estimated GFR (Cockcroft-Gault) 8.7 Glucose Level 153 mg/dL (70-99) Calcium Level 8.0 mg/dL (8.5-10.1) Glucose (Fingerstick) 148 mg/dL (70-99) 190 mg/dL (70-99) 199 mg/dL (70-99) Test 07/11/17 21:01 07/12/17 05:55 07/12/17 08:15 Glucose (Fingerstick) 170 mg/dL (70-99) 148 mg/dL (70-99) White Blood Count 7.9 x10^3/uL (4.0-11.0) Red Blood Count 2.52 x10^6/uL (4.30-5.70) Hemoglobin 8.1 g/dL (13.0-17.5) Hematocrit 24.8 % (39.0-53.0) Mean Corpuscular Volume 99 fL (79-100) Mean Corpuscular Hemoglobin 32 pg (25-35) Mean Corpuscular Hemoglobin Concent 33 g/dL (31-37) Red Cell Distribution Width 19.7 % (11.5-14.5) Platelet Count 90 x10^3/uL (140-400) Neutrophils (%) (Auto) 86 % (31-73) Lymphocytes (%) (Auto) 6 % (24-48) Monocytes (%) (Auto) 7 % (0-9) Eosinophils (%) (Auto) 2 % (0-3) Basophils (%) (Auto) 0 % (0-3) Neutrophils # (Auto) 6.8 x10^3uL (1.8-7.7) Lymphocytes # (Auto) 0.4 x10^3/uL (1.0-4.8) Monocytes # (Auto) 0.5 x10^3/uL (0.0-1.1) Eosinophils # (Auto) 0.2 x10^3/uL (0.0-0.7) Basophils # (Auto) 0.0 x10^3/uL (0.0-0.2) Sodium Level 135 mmol/L (136-145) Potassium Level 4.7 mmol/L (3.5-5.1) Chloride Level 97 mmol/L (98-107) Carbon Dioxide Level 32 mmol/L (21-32) Anion Gap 6 (6-14) Blood Urea Nitrogen 79 mg/dL (8-26) Creatinine 6.7 mg/dL (0.7-1.3) Estimated GFR (Cockcroft-Gault) 8.4 Glucose Level 127 mg/dL (70-99) Calcium Level 7.8 mg/dL (8.5-10.1) Laboratory Tests Test 07/11/17 11:34 07/11/17 16:52 07/11/17 21:01 07/12/17 05:55 Glucose (Fingerstick) 190 mg/dL (70-99) 199 mg/dL (70-99) 170 mg/dL (70-99) White Blood Count 7.9 x10^3/uL (4.0-11.0) Red Blood Count 2.52 x10^6/uL (4.30-5.70) Hemoglobin 8.1 g/dL (13.0-17.5) Hematocrit 24.8 % (39.0-53.0) Mean Corpuscular Volume 99 fL (79-100) Mean Corpuscular Hemoglobin 32 pg (25-35) Mean Corpuscular Hemoglobin Concent 33 g/dL (31-37) Red Cell Distribution Width 19.7 % (11.5-14.5) Platelet Count 90 x10^3/uL (140-400) Neutrophils (%) (Auto) 86 % (31-73) Lymphocytes (%) (Auto) 6 % (24-48) Monocytes (%) (Auto) 7 % (0-9) Eosinophils (%) (Auto) 2 % (0-3) Basophils (%) (Auto) 0 % (0-3) Neutrophils # (Auto) 6.8 x10^3uL (1.8-7.7) Lymphocytes # (Auto) 0.4 x10^3/uL (1.0-4.8) Monocytes # (Auto) 0.5 x10^3/uL (0.0-1.1) Eosinophils # (Auto) 0.2 x10^3/uL (0.0-0.7) Basophils # (Auto) 0.0 x10^3/uL (0.0-0.2) Sodium Level 135 mmol/L (136-145) Potassium Level 4.7 mmol/L (3.5-5.1) Chloride Level 97 mmol/L (98-107) Carbon Dioxide Level 32 mmol/L (21-32) Anion Gap 6 (6-14) Blood Urea Nitrogen 79 mg/dL (8-26) Creatinine 6.7 mg/dL (0.7-1.3) Estimated GFR (Cockcroft-Gault) 8.4 Glucose Level 127 mg/dL (70-99) Calcium Level 7.8 mg/dL (8.5-10.1) Test 07/12/17 08:15 Glucose (Fingerstick) 148 mg/dL (70-99) Notes A and A in bed dressing intact post-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
--- NOTE | 2017-07-12 11:29 | PDOC ---
Dialysis Progress Note Dialysis Note Dialysis Note Seen on CAPD, tolerating treatment Well Vitals as documented General Appearance: Awake: Alert Oriented x 3 Neck: No JVD or JVP Chest: CTA Stanislaw Heart: S1 S2 Abdomen - Soft NTND Extremities - No Edema ESRD: ct same CAPD as orderd Vitals Vital Signs Vital Signs Date Time Temp Pulse Resp B/P (MAP) Pulse Ox O2 Delivery O2 Flow Rate FiO2 07/12/17 11:00 94 Room Air 07/12/17 08:21 83 130/56 07/12/17 08:00 97.5 97.5 07/12/17 07:00 16 07/11/17 15:00 2.0 Labs Last Labs Laboratory Tests Test 07/10/17 14:40 07/10/17 16:29 07/10/17 20:47 07/11/17 06:20 Glucose (Fingerstick) 122 mg/dL (70-99) 187 mg/dL (70-99) 245 mg/dL (70-99) White Blood Count 9.2 x10^3/uL (4.0-11.0) Red Blood Count 2.69 x10^6/uL (4.30-5.70) Hemoglobin 8.8 g/dL (13.0-17.5) Hematocrit 26.6 % (39.0-53.0) Mean Corpuscular Volume 99 fL (79-100) Mean Corpuscular Hemoglobin 33 pg (25-35) Mean Corpuscular Hemoglobin Concent 33 g/dL (31-37) Red Cell Distribution Width 18.5 % (11.5-14.5) Platelet Count 105 x10^3/uL (140-400) Neutrophils (%) (Auto) 92 % (31-73) Lymphocytes (%) (Auto) 3 % (24-48) Monocytes (%) (Auto) 5 % (0-9) Eosinophils (%) (Auto) 0 % (0-3) Basophils (%) (Auto) 0 % (0-3) Neutrophils # (Auto) 8.5 x10^3uL (1.8-7.7) Lymphocytes # (Auto) 0.3 x10^3/uL (1.0-4.8) Monocytes # (Auto) 0.4 x10^3/uL (0.0-1.1) Eosinophils # (Auto) 0.0 x10^3/uL (0.0-0.7) Basophils # (Auto) 0.0 x10^3/uL (0.0-0.2) Segmented Neutrophils % 92 % (35-66) Band Neutrophils % 2 % (0-9) Lymphocytes % 1 % (24-48) Monocytes % 5 % (0-10) Platelet Estimate Decreased (ADEQUATE) Sodium Level 139 mmol/L (136-145) Potassium Level 4.9 mmol/L (3.5-5.1) Chloride Level 101 mmol/L (98-107) Carbon Dioxide Level 29 mmol/L (21-32) Anion Gap 9 (6-14) Blood Urea Nitrogen 75 mg/dL (8-26) Creatinine 6.5 mg/dL (0.7-1.3) Estimated GFR (Cockcroft-Gault) 8.7 Glucose Level 153 mg/dL (70-99) Calcium Level 8.0 mg/dL (8.5-10.1) Test 07/11/17 08:15 07/11/17 11:34 07/11/17 16:52 07/11/17 21:01 Glucose (Fingerstick) 148 mg/dL (70-99) 190 mg/dL (70-99) 199 mg/dL (70-99) 170 mg/dL (70-99) Test 07/12/17 05:55 07/12/17 08:15 White Blood Count 7.9 x10^3/uL (4.0-11.0) Red Blood Count 2.52 x10^6/uL (4.30-5.70) Hemoglobin 8.1 g/dL (13.0-17.5) Hematocrit 24.8 % (39.0-53.0) Mean Corpuscular Volume 99 fL (79-100) Mean Corpuscular Hemoglobin 32 pg (25-35) Mean Corpuscular Hemoglobin Concent 33 g/dL (31-37) Red Cell Distribution Width 19.7 % (11.5-14.5) Platelet Count 90 x10^3/uL (140-400) Neutrophils (%) (Auto) 86 % (31-73) Lymphocytes (%) (Auto) 6 % (24-48) Monocytes (%) (Auto) 7 % (0-9) Eosinophils (%) (Auto) 2 % (0-3) Basophils (%) (Auto) 0 % (0-3) Neutrophils # (Auto) 6.8 x10^3uL (1.8-7.7) Lymphocytes # (Auto) 0.4 x10^3/uL (1.0-4.8) Monocytes # (Auto) 0.5 x10^3/uL (0.0-1.1) Eosinophils # (Auto) 0.2 x10^3/uL (0.0-0.7) Basophils # (Auto) 0.0 x10^3/uL (0.0-0.2) Sodium Level 135 mmol/L (136-145) Potassium Level 4.7 mmol/L (3.5-5.1) Chloride Level 97 mmol/L (98-107) Carbon Dioxide Level 32 mmol/L (21-32) Anion Gap 6 (6-14) Blood Urea Nitrogen 79 mg/dL (8-26) Creatinine 6.7 mg/dL (0.7-1.3) Estimated GFR (Cockcroft-Gault) 8.4 Glucose Level 127 mg/dL (70-99) Calcium Level 7.8 mg/dL (8.5-10.1) Glucose (Fingerstick) 148 mg/dL (70-99) Laboratory Tests Test 07/11/17 11:34 07/11/17 16:52 07/11/17 21:01 07/12/17 05:55 Glucose (Fingerstick) 190 mg/dL (70-99) 199 mg/dL (70-99) 170 mg/dL (70-99) White Blood Count 7.9 x10^3/uL (4.0-11.0) Red Blood Count 2.52 x10^6/uL (4.30-5.70) Hemoglobin 8.1 g/dL (13.0-17.5) Hematocrit 24.8 % (39.0-53.0) Mean Corpuscular Volume 99 fL (79-100) Mean Corpuscular Hemoglobin 32 pg (25-35) Mean Corpuscular Hemoglobin Concent 33 g/dL (31-37) Red Cell Distribution Width 19.7 % (11.5-14.5) Platelet Count 90 x10^3/uL (140-400) Neutrophils (%) (Auto) 86 % (31-73) Lymphocytes (%) (Auto) 6 % (24-48) Monocytes (%) (Auto) 7 % (0-9) Eosinophils (%) (Auto) 2 % (0-3) Basophils (%) (Auto) 0 % (0-3) Neutrophils # (Auto) 6.8 x10^3uL (1.8-7.7) Lymphocytes # (Auto) 0.4 x10^3/uL (1.0-4.8) Monocytes # (Auto) 0.5 x10^3/uL (0.0-1.1) Eosinophils # (Auto) 0.2 x10^3/uL (0.0-0.7) Basophils # (Auto) 0.0 x10^3/uL (0.0-0.2) Sodium Level 135 mmol/L (136-145) Potassium Level 4.7 mmol/L (3.5-5.1) Chloride Level 97 mmol/L (98-107) Carbon Dioxide Level 32 mmol/L (21-32) Anion Gap 6 (6-14) Blood Urea Nitrogen 79 mg/dL (8-26) Creatinine 6.7 mg/dL (0.7-1.3) Estimated GFR (Cockcroft-Gault) 8.4 Glucose Level 127 mg/dL (70-99) Calcium Level 7.8 mg/dL (8.5-10.1) Test 07/12/17 08:15 Glucose (Fingerstick) 148 mg/dL (70-99) MIREYA HART MD Jul 12, 2017 11:29
--- NOTE | 2017-07-12 13:10 | PDOC ---
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 recent left toes osteo post toes amputation with wound dehiscence recent Recurrent UGIB, s/p EGD, with gastric ulcer post clip and epi injection recent acute on chronic resp failure, post intubation, trach removed ESRD previous on PD,on short term of HD, back to PD now recent CAD with 3rd degree AVB with PPM/ICD DM2 ON insulin dysphagia resolved morbid obesity, BMI 32.5 acute on chronic anemia, esrd, gib h/o thrombocytopenia moderate malnutrition History of Present Illness History of Present Illness Pt is a pleasant 61 year old male who presents with a klebsiella wound infection of the left foot. He is on meropenem for abx. s/p amputation, loosing well . Pt is also on peritoneal dialysis and has a PICC line. ROS: no fever, chills, sob or chest pain feels ok high BP left foot wound has wound vac on, looks bad as per wound care s./ p BKA PLAN transfer to ACUTE rehab, [facility] pending Vitals Vitals Vital Signs Date Time Temp Pulse Resp B/P (MAP) Pulse Ox O2 Delivery O2 Flow Rate FiO2 07/12/17 12:00 94 Room Air 07/12/17 11:00 97.9 79 18 135/59 (84) 97.9 07/11/17 15:00 2.0 Physical Exam General: Alert, Oriented X3, Cooperative Heart: Regular rate, Normal S1, Normal S2 Lungs: Clear Abdomen: Soft Extremities: No clubbing, No cyanosis, No edema, Other (negative Homans) Skin: Other (left foot open sites at the medial and lateral extremes of previous midfoot incision. These 2 areas comprised majority of the wound. Large areas of central exposed bone are evident. Peripheral tissue does not demonstrate good granulation with the development of slough noted throughout the wound area.) Labs LABS Laboratory Tests Test 07/11/17 16:52 07/11/17 21:01 07/12/17 05:55 07/12/17 08:15 Glucose (Fingerstick) 199 mg/dL (70-99) 170 mg/dL (70-99) 148 mg/dL (70-99) White Blood Count 7.9 x10^3/uL (4.0-11.0) Red Blood Count 2.52 x10^6/uL (4.30-5.70) Hemoglobin 8.1 g/dL (13.0-17.5) Hematocrit 24.8 % (39.0-53.0) Mean Corpuscular Volume 99 fL (79-100) Mean Corpuscular Hemoglobin 32 pg (25-35) Mean Corpuscular Hemoglobin Concent 33 g/dL (31-37) Red Cell Distribution Width 19.7 % (11.5-14.5) Platelet Count 90 x10^3/uL (140-400) Neutrophils (%) (Auto) 86 % (31-73) Lymphocytes (%) (Auto) 6 % (24-48) Monocytes (%) (Auto) 7 % (0-9) Eosinophils (%) (Auto) 2 % (0-3) Basophils (%) (Auto) 0 % (0-3) Neutrophils # (Auto) 6.8 x10^3uL (1.8-7.7) Lymphocytes # (Auto) 0.4 x10^3/uL (1.0-4.8) Monocytes # (Auto) 0.5 x10^3/uL (0.0-1.1) Eosinophils # (Auto) 0.2 x10^3/uL (0.0-0.7) Basophils # (Auto) 0.0 x10^3/uL (0.0-0.2) Sodium Level 135 mmol/L (136-145) Potassium Level 4.7 mmol/L (3.5-5.1) Chloride Level 97 mmol/L (98-107) Carbon Dioxide Level 32 mmol/L (21-32) Anion Gap 6 (6-14) Blood Urea Nitrogen 79 mg/dL (8-26) Creatinine 6.7 mg/dL (0.7-1.3) Estimated GFR (Cockcroft-Gault) 8.4 Glucose Level 127 mg/dL (70-99) Calcium Level 7.8 mg/dL (8.5-10.1) Test 07/12/17 11:44 Glucose (Fingerstick) 216 mg/dL (70-99) Review of Systems Review of Systems no n.v.d str improving, needs assists Comment Review of Relevant I have reviewed the following items den (where applicable) has been applied. Labs Laboratory Tests Test 07/10/17 14:40 07/10/17 16:29 07/10/17 20:47 07/11/17 06:20 Glucose (Fingerstick) 122 mg/dL (70-99) 187 mg/dL (70-99) 245 mg/dL (70-99) White Blood Count 9.2 x10^3/uL (4.0-11.0) Red Blood Count 2.69 x10^6/uL (4.30-5.70) Hemoglobin 8.8 g/dL (13.0-17.5) Hematocrit 26.6 % (39.0-53.0) Mean Corpuscular Volume 99 fL (79-100) Mean Corpuscular Hemoglobin 33 pg (25-35) Mean Corpuscular Hemoglobin Concent 33 g/dL (31-37) Red Cell Distribution Width 18.5 % (11.5-14.5) Platelet Count 105 x10^3/uL (140-400) Neutrophils (%) (Auto) 92 % (31-73) Lymphocytes (%) (Auto) 3 % (24-48) Monocytes (%) (Auto) 5 % (0-9) Eosinophils (%) (Auto) 0 % (0-3) Basophils (%) (Auto) 0 % (0-3) Neutrophils # (Auto) 8.5 x10^3uL (1.8-7.7) Lymphocytes # (Auto) 0.3 x10^3/uL (1.0-4.8) Monocytes # (Auto) 0.4 x10^3/uL (0.0-1.1) Eosinophils # (Auto) 0.0 x10^3/uL (0.0-0.7) Basophils # (Auto) 0.0 x10^3/uL (0.0-0.2) Segmented Neutrophils % 92 % (35-66) Band Neutrophils % 2 % (0-9) Lymphocytes % 1 % (24-48) Monocytes % 5 % (0-10) Platelet Estimate Decreased (ADEQUATE) Sodium Level 139 mmol/L (136-145) Potassium Level 4.9 mmol/L (3.5-5.1) Chloride Level 101 mmol/L (98-107) Carbon Dioxide Level 29 mmol/L (21-32) Anion Gap 9 (6-14) Blood Urea Nitrogen 75 mg/dL (8-26) Creatinine 6.5 mg/dL (0.7-1.3) Estimated GFR (Cockcroft-Gault) 8.7 Glucose Level 153 mg/dL (70-99) Calcium Level 8.0 mg/dL (8.5-10.1) Test 07/11/17 08:15 07/11/17 11:34 07/11/17 16:52 07/11/17 21:01 Glucose (Fingerstick) 148 mg/dL (70-99) 190 mg/dL (70-99) 199 mg/dL (70-99) 170 mg/dL (70-99) Test 07/12/17 05:55 07/12/17 08:15 07/12/17 11:44 White Blood Count 7.9 x10^3/uL (4.0-11.0) Red Blood Count 2.52 x10^6/uL (4.30-5.70) Hemoglobin 8.1 g/dL (13.0-17.5) Hematocrit 24.8 % (39.0-53.0) Mean Corpuscular Volume 99 fL (79-100) Mean Corpuscular Hemoglobin 32 pg (25-35) Mean Corpuscular Hemoglobin Concent 33 g/dL (31-37) Red Cell Distribution Width 19.7 % (11.5-14.5) Platelet Count 90 x10^3/uL (140-400) Neutrophils (%) (Auto) 86 % (31-73) Lymphocytes (%) (Auto) 6 % (24-48) Monocytes (%) (Auto) 7 % (0-9) Eosinophils (%) (Auto) 2 % (0-3) Basophils (%) (Auto) 0 % (0-3) Neutrophils # (Auto) 6.8 x10^3uL (1.8-7.7) Lymphocytes # (Auto) 0.4 x10^3/uL (1.0-4.8) Monocytes # (Auto) 0.5 x10^3/uL (0.0-1.1) Eosinophils # (Auto) 0.2 x10^3/uL (0.0-0.7) Basophils # (Auto) 0.0 x10^3/uL (0.0-0.2) Sodium Level 135 mmol/L (136-145) Potassium Level 4.7 mmol/L (3.5-5.1) Chloride Level 97 mmol/L (98-107) Carbon Dioxide Level 32 mmol/L (21-32) Anion Gap 6 (6-14) Blood Urea Nitrogen 79 mg/dL (8-26) Creatinine 6.7 mg/dL (0.7-1.3) Estimated GFR (Cockcroft-Gault) 8.4 Glucose Level 127 mg/dL (70-99) Calcium Level 7.8 mg/dL (8.5-10.1) Glucose (Fingerstick) 148 mg/dL (70-99) 216 mg/dL (70-99) Laboratory Tests Test 07/11/17 16:52 07/11/17 21:01 07/12/17 05:55 07/12/17 08:15 Glucose (Fingerstick) 199 mg/dL (70-99) 170 mg/dL (70-99) 148 mg/dL (70-99) White Blood Count 7.9 x10^3/uL (4.0-11.0) Red Blood Count 2.52 x10^6/uL (4.30-5.70) Hemoglobin 8.1 g/dL (13.0-17.5) Hematocrit 24.8 % (39.0-53.0) Mean Corpuscular Volume 99 fL (79-100) Mean Corpuscular Hemoglobin 32 pg (25-35) Mean Corpuscular Hemoglobin Concent 33 g/dL (31-37) Red Cell Distribution Width 19.7 % (11.5-14.5) Platelet Count 90 x10^3/uL (140-400) Neutrophils (%) (Auto) 86 % (31-73) Lymphocytes (%) (Auto) 6 % (24-48) Monocytes (%) (Auto) 7 % (0-9) Eosinophils (%) (Auto) 2 % (0-3) Basophils (%) (Auto) 0 % (0-3) Neutrophils # (Auto) 6.8 x10^3uL (1.8-7.7) Lymphocytes # (Auto) 0.4 x10^3/uL (1.0-4.8) Monocytes # (Auto) 0.5 x10^3/uL (0.0-1.1) Eosinophils # (Auto) 0.2 x10^3/uL (0.0-0.7) Basophils # (Auto) 0.0 x10^3/uL (0.0-0.2) Sodium Level 135 mmol/L (136-145) Potassium Level 4.7 mmol/L (3.5-5.1) Chloride Level 97 mmol/L (98-107) Carbon Dioxide Level 32 mmol/L (21-32) Anion Gap 6 (6-14) Blood Urea Nitrogen 79 mg/dL (8-26) Creatinine 6.7 mg/dL (0.7-1.3) Estimated GFR (Cockcroft-Gault) 8.4 Glucose Level 127 mg/dL (70-99) Calcium Level 7.8 mg/dL (8.5-10.1) Test 07/12/17 11:44 Glucose (Fingerstick) 216 mg/dL (70-99) Microbiology 07/02/17 Anaerobic/Aerobic Culture - Final, Complete 07/02/17 Anaerobic Culture Result 1 (BELKIS) - Final, Complete 07/02/17 Aerobic Culture - Final, Complete 07/02/17 Aerobic Culture Result 1 (BELKIS) - Final, Complete Medications Current Medications Ondansetron HCl (Zofran) 4 mg PRN Q6HRS PRN IV NAUSEA/VOMITING; Start 07/02/17 at 07:00; Stop 07/03/17 at 06:59; Status DC Fentanyl Citrate (Fentanyl 2ml Vial) 25 mcg PRN Q5MIN PRN IV MILD PAIN; Start 07/02/17 at 07:00; Stop 07/03/17 at 06:59; Status DC Fentanyl Citrate (Fentanyl 2ml Vial) 50 mcg PRN Q5MIN PRN IV MODERATE PAIN; Start 07/02/17 at 07:00; Stop 07/03/17 at 06:59; Status DC Morphine Sulfate 1 mg PRN Q10MIN PRN IV SEVERE PAIN; Start 07/02/17 at 07:00; Stop 07/03/17 at 06:59; Status DC Ringer's Solution 1,000 ml @ 30 mls/hr Q24H IV ; Start 07/02/17 at 07:00; Stop 07/02/17 at 18:59; Status DC Lidocaine HCl (Xylocaine-Mpf 1% Vial) 2 ml PRN 1X PRN ID IV START; Start at 07:00; Stop 07/03/17 at 06:59; Status DC Hydromorphone HCl (Dilaudid) 0.5 mg PRN Q10MIN PRN IV SEV PAIN, Second choice; Start 07/02/17 at 07:00; Stop 07/03/17 at 06:59; Status DC Prochlorperazine Edisylate (Compazine) 5 mg PACU PRN PRN IV NAUSEA, MRX1; Start 07/02/17 at 07:00; Stop 07/03/17 at 06:59; Status DC Lidocaine HCl 30 ml STK-MED ONCE .ROUTE ; Start 07/02/17 at 07:13; Stop at 07:14; Status DC Bupivacaine HCl (Sensorcaine Mpf 0.5%) 30 ml STK-MED ONCE .ROUTE ; Start at 07:13; Stop 07/02/17 at 07:14; Status DC Clindamycin Phosphate 50 ml @ As Directed STK-MED ONCE IV ; Start 07/02/17 at 08 :19; Stop 07/02/17 at 08:20; Status DC Al Hydroxide/Mg Hydroxide (Mylanta Plus Xs) 30 ml PRN Q3HRS PRN PO HEARTBURN / GAS; Start 07/02/17 at 08:30 Oxycodone HCl (Roxicodone) 5 mg PRN Q3HRS PRN PO BREAKTHROUGH PAIN; Start 07/02 at 08:30 Morphine Sulfate 1 mg PRN Q1HR PRN IV PAIN; Start 07/02/17 at 08:30 Acetaminophen/ Hydrocodone Bitart (Lortab 5/325) 1 tab PRN Q4HRS PRN PO MODERATE - SEVERE PAIN Last administered on 07/10/17t 01:55; Start 07/02/17 at 08:30 Senna/Docusate Sodium (Senna Plus) 1 tab BID PO Last administered on 08:19; Start 07/02/17 at 10:00 Magnesium Hydroxide (Milk Of Magnesia) 2,400 mg PRN Q12HR PRN PO CONSTIPATION; Start 07/02/17 at 08:30 Sodium Chloride 1,000 ml @ 100 mls/hr Q10H IV Last administered on 07/02/17 08:51; Start 07/02/17 at 08:30; Stop 07/03/17 at 10:02; Status DC Allopurinol (Zyloprim) 100 mg DAILY PO Last administered on 07/12/17 08:19; Start 07/02/17 at 09:00 Aspirin (Ecotrin) 81 mg DAILY PO Last administered on 07/12/17 08:19; Start 07/02/17 at 09:00 Vitamin D (Vitamin D3) 1,000 unit DAILY PO Last administered on 07/12/17 08: 18; Start 07/02/17 at 09:00 Clonidine HCl (Catapres) 0.2 mg BID PO Last administered on 07/12/17 08:20; Start 07/02/17 at 09:00 Darbepoetin Fredi (Aranesp) 60 mcg Sa SQ ; Start 07/05/17 at 21:00; Stop at 21:00; Status DC Docusate Sodium (Colace) 200 mg DAILY PO Last administered on 07/12/17 08:18 ; Start 07/02/17 at 10:00 Doxazosin Mesylate (Cardura) 4 mg HS PO Last administered on 07/11/17 20:53; Start 07/02/17 at 21:00 Ferrous Sulfate (Feosol) 325 mg DAILYWBKFT PO Last administered on 07/12/17 08:19; Start 07/02/17 at 09:00 Vitamin B Complex/ Vitamin C (Richelle-Harsha) 1 tab DAILY PO Last administered on 08:19; Start 07/02/17 at 09:00 Furosemide (Lasix) 80 mg BID92 PO Last administered on 07/12/17 08:19; Start 07/02/17 at 09:00 Albuterol/ Ipratropium (Duoneb) 3 ml TID NEB Last administered on 07/12/17 06 :05; Start 07/02/17 at 09:00 Lisinopril (Prinivil) 5 mg HS PO Last administered on 07/06/17 22:26; Start 07/02/17 at 21:00; Stop 07/07/17 at 13:59; Status DC Metoprolol Succinate (Toprol Xl) 25 mg DAILY PO Last administered on 08:20; Start 07/02/17 at 09:00 Sodium Bicarbonate (Sodium Bicarbonate) 650 mg TIDAC PO Last administered on 12:03; Start 07/02/17 at 11:30 Tamsulosin HCl (Flomax) 0.4 mg DAILY PO Last administered on 07/12/17 08:23; Start 07/02/17 at 09:00 Calcium Acetate (Phoslo) 667 mg TIDWMEALS PO Last administered on 07/12/17 12 :03; Start 07/02/17 at 12:00 Calcium Carbonate/ Glycine (Tums) 500 mg TIDWMEALS PO Last administered on 12:03; Start 07/02/17 at 12:00 Carvedilol (Coreg) 25 mg BIDWMEALS PO Last administered on 07/12/17 08:21; Start 07/02/17 at 17:00 Insulin Detemir (Levemir) 20 units QHS SQ Last administered on 07/11/17 21:02 ; Start 07/02/17 at 21:00 Potassium Chloride (Klor-Con) 20 meq BIDWMEALS PO Last administered on 09:14; Start 07/02/17 at 10:00; Stop 07/03/17 at 10:02; Status DC Atorvastatin Calcium (Lipitor) 5 mg QHS PO Last administered on 07/11/17 20: 54; Start 07/02/17 at 21:00 Non-Formulary Medication 400 mg BID PO ; Start 07/02/17 at 09:00; Stop 07/02/17 at 10:20; Status DC Zolpidem Tartrate (Ambien) 5 mg PRN QHS PRN PO INSOMNIA; Start 07/02/17 at 10: 15 Insulin Aspart (NovoLOG) 0-5 UNITS TIDWMEALS SQ Last administered on 07/02/17 17:22; Start 07/02/17 at 12:00; Stop 07/03/17 at 08:59; Status DC Dextrose (Dextrose 50%-Water Syringe) 12.5 gm PRN Q15MIN PRN IV SEE COMMENTS; Start 07/02/17 at 08:30; Stop 07/03/17 at 14:12; Status DC Clindamycin Phosphate 50 ml @ 100 mls/hr 1X ONCE IV ; Start 07/02/17 at 08:45 ; Stop 07/02/17 at 09:03; Status DC Propofol 20 ml @ As Directed STK-MED ONCE IV ; Start 07/02/17 at 08:44; Stop at 08:45; Status DC Lidocaine HCl (Lidocaine Pf 2% Vial) 5 ml STK-MED ONCE .ROUTE ; Start 07/02/17 at 08:44; Stop 07/02/17 at 08:45; Status DC Midazolam HCl (Versed) 2 mg STK-MED ONCE .ROUTE ; Start 07/02/17 at 08:45; Stop 07/02/17 at 08:46; Status DC Ephedrine Sulfate (Akovaz) 50 mg STK-MED ONCE .ROUTE ; Start 07/02/17 at 09:28; Stop 07/02/17 at 09:29; Status DC Phenylephrine HCl (Krunal-Synephrine Inj) 10 mg STK-MED ONCE .ROUTE ; Start at 09:37; Stop 07/02/17 at 09:38; Status DC Dexamethasone Sodium Phosphate (Decadron) 20 mg STK-MED ONCE .ROUTE ; Start 07/02/17 at 09:37; Stop 07/02/17 at 09:38; Status DC Ondansetron HCl (Zofran) 4 mg STK-MED ONCE .ROUTE ; Start 07/02/17 at 09:37; Stop 07/02/17 at 09:38; Status DC Sevoflurane (Ultane) 15 ml STK-MED ONCE IH ; Start 07/02/17 at 09:53; Stop 07/02 at 09:54; Status DC Zolpidem Tartrate (Ambien) 5 mg QHS PO Last administered on 07/11/17 20:56; Start 07/02/17 at 21:00 Acetaminophen (Tylenol) 650 mg PRN Q6HRS PRN PO FEVER Last administered on 21:02; Start 07/02/17 at 15:45 Ondansetron HCl (Zofran) 4 mg PRN Q6HRS PRN IV NAUSEA/VOMITING; Start 07/02/17 at 15:45 Morphine Sulfate 2 mg PRN Q2HR PRN IV PAIN Last administered on 07/10/17 17: 32; Start 07/02/17 at 15:45 Tramadol HCl (Ultram) 50 mg PRN Q6HRS PRN PO MILD PAIN Last administered on 12:44; Start 07/02/17 at 15:45 Hydralazine HCl (Apresoline Inj) 10 mg PRN Q4HRS PRN IVP ELEVATED BP, SEE COMMENTS; Start 07/02/17 at 15:45 Docusate Sodium (Colace) 100 mg PRN DAILY PRN PO CONSTIPATION; Start 07/02/17 at 15:45 Insulin Aspart (NovoLOG) 0-9 UNITS TIDWMEALS SQ Last administered on 12:08; Start 07/03/17 at 12:00 Dextrose (Dextrose 50%-Water Syringe) 12.5 gm PRN Q15MIN PRN IV SEE COMMENTS; Start 07/03/17 at 09:00 Magnesium Sulfate/ Dextrose 50 ml @ 25 mls/hr PRN DAILY PRN IV for Mag < 1.7 on am labs; Start 07/03/17 at 09:15 Clindamycin Phosphate (Cleocin 900mg Premix) 900 mg STK-MED ONCE IV ; Start 07/02/17 at 08:00; Stop 07/03/17 at 09:11; Status DC Insulin Aspart (NovoLOG) 5 units 1X ONCE SQ Last administered on 07/03/17 09: 46; Start 07/03/17 at 09:30; Stop 07/03/17 at 09:31; Status DC Potassium Chloride (Klor-Con) 20 meq BIDWMEALS PO Last administered on 16:37; Start 07/03/17 at 17:00 Ciprofloxacin/ Dextrose 200 ml @ 200 mls/hr DAILY IV ; Start 07/03/17 at 14:00 ; Stop 07/03/17 at 14:38; Status DC Ciprofloxacin/ Dextrose 200 ml @ 200 mls/hr Q18H IV ; Start 07/04/17 at 09:00 ; Stop 07/04/17 at 11:51; Status DC Ciprofloxacin/ Dextrose 200 ml @ 200 mls/hr 1X ONCE IV Last administered on 07/03/17 16:24; Start 07/03/17 at 15:30; Stop 07/04/17 at 11:51; Status DC Magnesium Sulfate/ Dextrose 50 ml @ 25 mls/hr 1X ONCE IV Last administered on 07/04/17 11:41; Start 07/04/17 at 10:30; Stop 07/04/17 at 12:29; Status DC Ertapenem 0.5 gm/ Sodium Chloride 50 ml @ 100 mls/hr DAILY08 IV ; Start at 08:00; Status UNV Meropenem (Merrem) 500 mg Q24H IVP Last administered on 07/11/17 13:22; Start 07/04/17 at 13:00; Stop 07/11/17 at 14:00; Status DC Darbepoetin Fredi (Aranesp) 100 mcg QSA@2100 SQ Last administered on 07/05/17 22:15; Start 07/05/17 at 21:00 Lactobacillus Rhamnosus (Culturelle) 1 cap BID PO Last administered on 08:19; Start 07/06/17 at 21:00 Lisinopril (Prinivil) 10 mg QHS PO Last administered on 07/07/17 20:59; Start 07/07/17 at 21:00; Stop 07/08/17 at 14:45; Status DC Polyethylene Glycol (miraLAX PACKET) 17 gm PRN DAILY PRN PO CONSTIPATION Last administered on 07/07/17 21:15; Start 07/07/17 at 21:00 Lisinopril (Prinivil) 20 mg QHS PO Last administered on 07/11/17 20:56; Start 07/08/17 at 21:00 Ondansetron HCl (Zofran) 4 mg PRN Q6HRS PRN IV NAUSEA/VOMITING; Start at 07:00; Stop 07/10/17 at 06:59; Status DC Fentanyl Citrate (Fentanyl 2ml Vial) 25 mcg PRN Q5MIN PRN IV MILD PAIN; Start 07/09/17 at 07:00; Stop 07/10/17 at 06:59; Status DC Fentanyl Citrate (Fentanyl 2ml Vial) 50 mcg PRN Q5MIN PRN IV MODERATE PAIN; Start 07/09/17 at 07:00; Stop 07/10/17 at 06:59; Status DC Morphine Sulfate 1 mg PRN Q10MIN PRN IV SEVERE PAIN; Start 07/09/17 at 07:00; Stop 07/10/17 at 06:59; Status DC Ringer's Solution 1,000 ml @ 30 mls/hr Q24H IV ; Start 07/09/17 at 07:00; Stop 07/09/17 at 18:59; Status Cancel Lidocaine HCl (Xylocaine-Mpf 1% Vial) 2 ml PRN 1X PRN ID IV START; Start 07/09 at 07:00; Stop 07/10/17 at 06:59; Status DC Hydromorphone HCl (Dilaudid) 0.5 mg PRN Q10MIN PRN IV SEV PAIN, Second choice; Start 07/09/17 at 07:00; Stop 07/10/17 at 06:59; Status DC Prochlorperazine Edisylate (Compazine) 5 mg PACU PRN PRN IV NAUSEA, MRX1; Start 07/09/17 at 07:00; Stop 07/10/17 at 06:59; Status DC Ondansetron HCl (Zofran) 4 mg PRN Q6HRS PRN IV NAUSEA/VOMITING; Start at 07:00; Stop 07/11/17 at 06:59; Status DC Fentanyl Citrate (Fentanyl 2ml Vial) 25 mcg PRN Q5MIN PRN IV MILD PAIN; Start 07/10/17 at 07:00; Stop 07/11/17 at 06:59; Status DC Fentanyl Citrate (Fentanyl 2ml Vial) 50 mcg PRN Q5MIN PRN IV MODERATE PAIN Last administered on 07/10/17t 14:54; Start 07/10/17 at 07:00; Stop 07/11/17 at 06:59; Status DC Morphine Sulfate 1 mg PRN Q10MIN PRN IV SEVERE PAIN Last administered on t 15:05; Start 07/10/17 at 07:00; Stop 07/11/17 at 06:59; Status DC Ringer's Solution 1,000 ml @ 30 mls/hr Q24H IV ; Start 07/10/17 at 07:00; Stop 07/10/17 at 18:59; Status DC Lidocaine HCl (Xylocaine-Mpf 1% Vial) 2 ml PRN 1X PRN ID IV START; Start 07/10 at 07:00; Stop 07/11/17 at 06:59; Status DC Hydromorphone HCl (Dilaudid) 0.5 mg PRN Q10MIN PRN IV SEV PAIN, Second choice Last administered on 07/10/17t 15:58; Start 07/10/17 at 07:00; Stop 07/11/17 at 06:59; Status DC Prochlorperazine Edisylate (Compazine) 5 mg PACU PRN PRN IV NAUSEA, MRX1 Last administered on 07/10/17t 15:35; Start 07/10/17 at 07:00; Stop 07/11/17 at 06 :59; Status DC Sevoflurane (Ultane) 60 ml STK-MED ONCE IH ; Start 07/10/17 at 11:08; Stop at 11:09; Status DC Fentanyl Citrate (Fentanyl 2ml Vial) 100 mcg STK-MED ONCE .ROUTE ; Start at 11:11; Stop 07/10/17 at 11:12; Status DC Propofol 0 ml @ As Directed STK-MED ONCE IV ; Start 07/10/17 at 11:11; Stop at 11:12; Status DC Lidocaine HCl (Lidocaine Pf 2% Vial) 5 ml STK-MED ONCE .ROUTE ; Start 07/10/17 at 11:11; Stop 07/10/17 at 11:12; Status DC Dexamethasone Sodium Phosphate (Decadron) 20 mg STK-MED ONCE .ROUTE ; Start at 11:11; Stop 07/10/17 at 11:12; Status DC Ondansetron HCl (Zofran) 4 mg STK-MED ONCE .ROUTE ; Start 07/10/17 at 11:11; Stop 07/10/17 at 11:12; Status DC Etomidate (Amidate) 20 mg STK-MED ONCE IV ; Start 07/10/17 at 11:48; Stop at 11:49; Status DC Ephedrine Sulfate (Akovaz) 50 mg STK-MED ONCE .ROUTE ; Start 07/10/17 at 12:52 ; Stop 07/10/17 at 12:53; Status DC Hydralazine HCl (Apresoline Inj) 20 mg STK-MED ONCE .ROUTE ; Start 07/10/17 at 13:16; Stop 07/10/17 at 13:17; Status DC Fentanyl Citrate (Fentanyl 2ml Vial) 100 mcg STK-MED ONCE .ROUTE ; Start at 13:17; Stop 07/10/17 at 13:18; Status DC Acetaminophen/ Hydrocodone Bitart (Lortab 7.5/325) 1 tab PRN Q4HRS PRN PO PAIN Last administered on 07/12/17t 11:00; Start 07/11/17 at 08:15 Active Scripts Active Reported Carvedilol 25 Mg Tablet 1 Tab PO BID Coq-10 (Ubidecarenone) 100 Mg Capsule 400 Mg PO BID Krill Oil 500 mg Softgel (Krill/Om-3/Dha/Epa/Phospho/Ast) 1 Each Capsule 1 Each PO DAILY Vitamin D3 (Cholecalciferol (Vitamin D3)) 1,000 Unit Tablet 1 Tab PO DAILY Potassium Chloride 20 Meq Tablet.er 20 Meq PO BID Metoprolol Succinate ( Xl ) (Metoprolol Succinate) 25 Mg Tab.er.24h 1 Tab PO DAILY Calcium Acetate 667 Mg Tablet 1,334 Mg PO TIDWMEALS Ambien (Zolpidem Tartrate) 10 Mg Tablet 1 Tab PO QHS Humalog (Insulin Lispro) 100 Unit/1 Ml Cartridge 0 SQ Doxazosin Mesylate 4 Mg Tablet 4 Mg PO HS Nephro-Harsha Tablet (Folic Acid/Vitamin B Comp W-C) 0.8 Mg Tablet 1 Tab PO DAILY Aspir 81 (Aspirin) 81 Mg Tablet.dr 1 Tab PO DAILY Furosemide 80 Mg Tablet 80 Mg PO BID Sodium Bicarbonate 650 Mg Tablet 1 Tab PO TIDAC Artificial Tears Eye Drops (Dextran 70/Hypromellose) 15 Ml Drops 1 Drop EACHEYE BID Pravastatin Sodium 10 Mg Tablet 1 Tab PO QHS Tamsulosin Hcl 0.4 Mg Cap.er.24h 1 Cap PO DAILY Docusate Sodium 100 Mg Capsule 200 Mg PO DAILY Aranesp Syringe (Darbepoetin Fredi In Polysorbat) 60 Mcg/0.3 Ml Disp.syrin 60 Mcg SQ WEEKLY Ferrous Sulfate 325 Mg Tablet 1 Tab PO DAILY Duoneb 0.5-3(2.5) Mg/3 Ml (Albuterol/Ipratropium) 3 Ml Ampul.neb 3 Ml NEB TID Tums Ultra (Calcium Carbonate) 400 Mg Tab.chew 500 Mg PO TID Allopurinol 100 Mg Tablet 1 Tab PO DAILY Clonidine Hcl 0.2 Mg Tablet 1 Tab PO PRN TAKES ONLY IF HIS BLOOD PRESSURE IS ELEVATED Lisinopril 5 Mg Tablet 1 Tab PO HS Levemir (Insulin Detemir) 100 Unit/1 Ml Vial 20 Unit SQ HS Vitals/I & O Vital Sign - Last 24 Hours 07/11/17 07/11/17 07/11/17 07/11/17 14:03 14:19 15:00 16:37 Temp 98.7 98.7 Pulse 82 82 B/P (MAP) 145/62 (89) 145/62 Pulse Ox 95 O2 Delivery Room Air Room Air Room Air O2 Flow Rate 2.0 07/11/17 07/11/17 07/11/17 07/11/17 19:00 19:35 19:49 20:53 Pulse 79 Resp 16 B/P (MAP) 157/44 O2 Delivery Room Air Room Air Room Air 07/11/17 07/11/17 07/11/17 07/11/17 20:55 20:56 21:45 23:00 Temp 97.5 97.5 Pulse 79 79 73 Resp 18 B/P (MAP) 157/44 157/44 137/99 (112) Pulse Ox 96 O2 Delivery Room Air Room Air 07/12/17 07/12/17 07/12/17 07/12/17 02:08 03:10 03:10 06:05 Temp 97.7 97.7 Pulse 78 Resp 14 14 20 B/P (MAP) 136/83 (100) Pulse Ox 100 O2 Delivery Room Air BiPAP/CPAP Room Air 07/12/17 07/12/17 07/12/17 07/12/17 06:24 07:00 08:00 08:00 Temp 97.5 97.5 97.5 97.5 Pulse 83 83 Resp 14 16 B/P (MAP) 130/56 (80) 130/56 (80) Pulse Ox 94 94 O2 Delivery Room Air Room Air Room Air Room Air 07/12/17 07/12/17 07/12/17 07/12/17 08:20 08:20 08:21 11:00 Pulse 83 83 83 B/P (MAP) 130/56 130/56 130/56 Pulse Ox 94 O2 Delivery Room Air 07/12/17 07/12/17 11:00 12:00 Temp 97.9 97.9 Pulse 79 Resp 18 B/P (MAP) 135/59 (84) Pulse Ox 97 94 O2 Delivery Room Air Room Air Intake and Output 07/11/17 07/11/17 07/12/17 15:00 23:00 07:00 Intake Total 240 ml 500 ml 150 ml Output Total 0 ml Balance 240 ml 500 ml 150 ml JOSE MENDOZA MD Jul 12, 2017 13:10
[2017-07-12] MEDS: ZOLPIDEM 5 MG TABLET. PO SCH (21:42)
[2017-07-12] MEDS: ATORVASTATIN CALCIUM 10 MG TABLET. PO SCH (21:42)
[2017-07-12] MEDS: LISINOPRIL 20 MG TABLET PO SCH (21:44)
[2017-07-12] MEDS: DOXAZOSIN MESYLATE 4 MG TABLET. PO SCH (21:45)
[2017-07-12] MEDS: DARBEPOETIN ALFA 100 MCG/0.5 ML DISP.SYRIN. SQ SCH (21:49)
[2017-07-12] MEDS: INSULIN DETEMIR 300 UNITS/3 ML INSULN.PEN. SQ SCH (22:09)
[2017-07-13] VITALS (8 sets, daily range): BP systolic 121–171; BP diastolic 32–72
--- NOTE | 2017-07-13 07:50 | PDOC ---
ORTHO PROGRESS NOTES Subjective Some pain this am, but due for a pain pill. No other complaints Vitals Vital Signs Date Time Temp Pulse Resp B/P (MAP) Pulse Ox O2 Delivery O2 Flow Rate FiO2 07/13/17 07:12 Room Air 07/13/17 03:00 18 07/12/17 23:00 96.4 78 100 96.4 Labs Laboratory Tests Test 07/11/17 08:15 07/11/17 11:34 07/11/17 16:52 07/11/17 21:01 Glucose (Fingerstick) 148 mg/dL (70-99) 190 mg/dL (70-99) 199 mg/dL (70-99) 170 mg/dL (70-99) Test 07/12/17 05:55 07/12/17 08:15 07/12/17 11:44 07/12/17 16:57 White Blood Count 7.9 x10^3/uL (4.0-11.0) Red Blood Count 2.52 x10^6/uL (4.30-5.70) Hemoglobin 8.1 g/dL (13.0-17.5) Hematocrit 24.8 % (39.0-53.0) Mean Corpuscular Volume 99 fL (79-100) Mean Corpuscular Hemoglobin 32 pg (25-35) Mean Corpuscular Hemoglobin Concent 33 g/dL (31-37) Red Cell Distribution Width 19.7 % (11.5-14.5) Platelet Count 90 x10^3/uL (140-400) Neutrophils (%) (Auto) 86 % (31-73) Lymphocytes (%) (Auto) 6 % (24-48) Monocytes (%) (Auto) 7 % (0-9) Eosinophils (%) (Auto) 2 % (0-3) Basophils (%) (Auto) 0 % (0-3) Neutrophils # (Auto) 6.8 x10^3uL (1.8-7.7) Lymphocytes # (Auto) 0.4 x10^3/uL (1.0-4.8) Monocytes # (Auto) 0.5 x10^3/uL (0.0-1.1) Eosinophils # (Auto) 0.2 x10^3/uL (0.0-0.7) Basophils # (Auto) 0.0 x10^3/uL (0.0-0.2) Sodium Level 135 mmol/L (136-145) Potassium Level 4.7 mmol/L (3.5-5.1) Chloride Level 97 mmol/L (98-107) Carbon Dioxide Level 32 mmol/L (21-32) Anion Gap 6 (6-14) Blood Urea Nitrogen 79 mg/dL (8-26) Creatinine 6.7 mg/dL (0.7-1.3) Estimated GFR (Cockcroft-Gault) 8.4 Glucose Level 127 mg/dL (70-99) Calcium Level 7.8 mg/dL (8.5-10.1) Glucose (Fingerstick) 148 mg/dL (70-99) 216 mg/dL (70-99) 162 mg/dL (70-99) Test 07/12/17 22:02 Glucose (Fingerstick) 159 mg/dL (70-99) Laboratory Tests Test 07/12/17 08:15 07/12/17 11:44 07/12/17 16:57 07/12/17 22:02 Glucose (Fingerstick) 148 mg/dL (70-99) 216 mg/dL (70-99) 162 mg/dL (70-99) 159 mg/dL (70-99) Notes A and A lying in bed BKA brace in place Assessment and Plan L BKA, cont brace [facility]-[place] tomorrow JOSELITO PONCE II, MD Jul 13, 2017 07:50
[2017-07-13] MEDS: INSULIN ASPART 300 UNITS/3 ML INSULN.PEN SQ SCH ×3 (08:00→16:58)
[2017-07-13] MEDS: POTASSIUM CHLORIDE 20 MEQ TABLET.ER. PO SCH ×3 (08:00→16:45)
[2017-07-13] MEDS: LACTOBACILLUS RHAMNOSUS GG 1 CAPSULE. PO SCH ×2 (08:09→21:22)
[2017-07-13] MEDS: FERROUS SULFATE 325 MG TABLET. PO SCH (08:10)
[2017-07-13] MEDS: FUROSEMIDE 80 MG TABLET. PO SCH ×2 (08:10→13:26)
[2017-07-13] MEDS: ASPIRIN ENTERIC COATED 81 MG TABLET.DR. PO SCH (08:10)
[2017-07-13] MEDS: CALCIUM CARBONATE 500 MG TAB.CHEW PO SCH ×3 (08:10→16:44)
[2017-07-13] MEDS: TAMSULOSIN 0.4 MG CAP.ER.24H. PO SCH (08:10)
[2017-07-13] MEDS: CARVEDILOL 12.5 MG TABLET. PO SCH ×2 (08:10→16:45)
[2017-07-13] MEDS: CHOLECALCIFEROL (VITAMIN D3) 1,000 UNIT TABLET PO SCH (08:11)
[2017-07-13] MEDS: cloNIDine HCL 0.2 MG TABLET PO SCH ×2 (08:11→21:24)
[2017-07-13] MEDS: FOLIC/VIT B COMP W-C (RENAL) TABLET. PO SCH (08:11)
[2017-07-13] MEDS: SODIUM BICARBONATE 650 MG TABLET. PO SCH ×3 (08:11→16:44)
[2017-07-13] MEDS: DOCUSATE SODIUM 100 MG CAPSULE. PO SCH (08:12)
[2017-07-13] MEDS: CALCIUM ACETATE 667 MG CAPSULE PO SCH ×3 (08:13→16:45)
[2017-07-13] MEDS: HYDROcodone/APAP 7.5/325MG 1 TAB TABLET PO PRN ×2 (08:13→13:26)
[2017-07-13] MEDS: METOPROLOL SUCC 24HR ER 25 MG TAB.ER.24H. PO SCH (08:13)
[2017-07-13] MEDS: SENNOSIDES/DOCUSATE 8.6/50MG TABLET. PO SCH ×2 (08:19→21:23)
[2017-07-13] MEDS: ALLOPURINOL 100 MG TABLET. PO SCH (08:19)
[2017-07-13] MEDS: IPRATRPIUM/ALBUTEROL 0.5/2.5MG 3 ML NEBU. NEB SCH ×3 (09:56→20:51)
[2017-07-13] MEDS ORDERED: DIALYSIS PATIENT. MC PRN (15:00)
--- NOTE | 2017-07-13 15:07 | PDOC ---
Dialysis Progress Note Dialysis Note Dialysis Note Seen on CAPD, tolerating treatment Well Vitals as documented General Appearance: Awake: Alert Oriented x 3 Neck: No JVD or JVP Chest: CTA Stanislaw Heart: S1 S2 Abdomen - Soft NTND Extremities - No Edema ESRD: ct same CAPD as orderd Vitals Vital Signs Vital Signs Date Time Temp Pulse Resp B/P (MAP) Pulse Ox O2 Delivery O2 Flow Rate FiO2 07/13/17 14:30 95 Room Air 07/13/17 11:45 97.7 81 16 146/72 (96) 97.7 07/11/17 15:00 2.0 Labs Last Labs Laboratory Tests Test 07/11/17 16:52 07/11/17 21:01 07/12/17 05:55 07/12/17 08:15 Glucose (Fingerstick) 199 mg/dL (70-99) 170 mg/dL (70-99) 148 mg/dL (70-99) White Blood Count 7.9 x10^3/uL (4.0-11.0) Red Blood Count 2.52 x10^6/uL (4.30-5.70) Hemoglobin 8.1 g/dL (13.0-17.5) Hematocrit 24.8 % (39.0-53.0) Mean Corpuscular Volume 99 fL (79-100) Mean Corpuscular Hemoglobin 32 pg (25-35) Mean Corpuscular Hemoglobin Concent 33 g/dL (31-37) Red Cell Distribution Width 19.7 % (11.5-14.5) Platelet Count 90 x10^3/uL (140-400) Neutrophils (%) (Auto) 86 % (31-73) Lymphocytes (%) (Auto) 6 % (24-48) Monocytes (%) (Auto) 7 % (0-9) Eosinophils (%) (Auto) 2 % (0-3) Basophils (%) (Auto) 0 % (0-3) Neutrophils # (Auto) 6.8 x10^3uL (1.8-7.7) Lymphocytes # (Auto) 0.4 x10^3/uL (1.0-4.8) Monocytes # (Auto) 0.5 x10^3/uL (0.0-1.1) Eosinophils # (Auto) 0.2 x10^3/uL (0.0-0.7) Basophils # (Auto) 0.0 x10^3/uL (0.0-0.2) Sodium Level 135 mmol/L (136-145) Potassium Level 4.7 mmol/L (3.5-5.1) Chloride Level 97 mmol/L (98-107) Carbon Dioxide Level 32 mmol/L (21-32) Anion Gap 6 (6-14) Blood Urea Nitrogen 79 mg/dL (8-26) Creatinine 6.7 mg/dL (0.7-1.3) Estimated GFR (Cockcroft-Gault) 8.4 Glucose Level 127 mg/dL (70-99) Calcium Level 7.8 mg/dL (8.5-10.1) Test 07/12/17 11:44 07/12/17 16:57 07/12/17 22:02 07/13/17 07:51 Glucose (Fingerstick) 216 mg/dL (70-99) 162 mg/dL (70-99) 159 mg/dL (70-99) 107 mg/dL (70-99) Test 07/13/17 11:25 Glucose (Fingerstick) 196 mg/dL (70-99) Laboratory Tests Test 07/12/17 16:57 07/12/17 22:02 07/13/17 07:51 07/13/17 11:25 Glucose (Fingerstick) 162 mg/dL (70-99) 159 mg/dL (70-99) 107 mg/dL (70-99) 196 mg/dL (70-99) MIREYA HART MD Jul 13, 2017 15:07
[2017-07-13] MEDS ORDERED: MAGNESIUM SULFATE 2GM 50 ML IV PRN (15:15)
[2017-07-13] MEDS: MORPHINE SULFATE 4 MG/ML DISP.SYRIN. IV PRN (16:44)
--- NOTE | 2017-07-13 16:55 | PDOC ---
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 recent left toes osteo post toes amputation with wound dehiscence recent Recurrent UGIB, s/p EGD, with gastric ulcer post clip and epi injection recent acute on chronic resp failure, post intubation, trach removed ESRD previous on PD,on short term of HD, back to PD now recent CAD with 3rd degree AVB with PPM/ICD DM2 ON insulin dysphagia resolved morbid obesity, BMI 32.5 acute on chronic anemia, esrd, gib h/o thrombocytopenia moderate malnutrition History of Present Illness History of Present Illness s/p amputation, now with neuropathic pain, sharp electric pain, phantom pain to foot that isn't there will start Gabapentin 300 mg PO X1, dose with HD recommened 300 after dialysis, may do OK with QOD dosing, . Pt is also on peritoneal dialysis and has a PICC line. s./ p BKA PLAN transfer to ACUTE rehab, [facility] pending Vitals Vitals Vital Signs Date Time Temp Pulse Resp B/P (MAP) Pulse Ox O2 Delivery O2 Flow Rate FiO2 07/13/17 15:45 97.8 79 152/68 (96) 95 Room Air 97.8 07/13/17 15:00 18 Physical Exam General: Alert, Oriented X3, Cooperative Heart: Regular rate, Normal S1, Normal S2 Lungs: Clear Abdomen: Soft Extremities: No clubbing, No cyanosis, No edema, Other (negative Homans) Skin: Other (left foot open sites at the medial and lateral extremes of previous midfoot incision. These 2 areas comprised majority of the wound. Large areas of central exposed bone are evident. Peripheral tissue does not demonstrate good granulation with the development of slough noted throughout the wound area.) Labs LABS Laboratory Tests Test 07/12/17 16:57 07/12/17 22:02 07/13/17 07:51 07/13/17 11:25 Glucose (Fingerstick) 162 mg/dL (70-99) 159 mg/dL (70-99) 107 mg/dL (70-99) 196 mg/dL (70-99) Test 07/13/17 16:10 Glucose (Fingerstick) 159 mg/dL (70-99) Review of Systems Review of Systems ROS: no fever, chills, sob or chest pain feels ok - complains of pain today Assessment and Plan Assessmemt and Plan above Problems: Comment Review of Relevant I have reviewed the following items den (where applicable) has been applied. Labs Laboratory Tests Test 07/11/17 16:52 07/11/17 21:01 07/12/17 05:55 07/12/17 08:15 Glucose (Fingerstick) 199 mg/dL (70-99) 170 mg/dL (70-99) 148 mg/dL (70-99) White Blood Count 7.9 x10^3/uL (4.0-11.0) Red Blood Count 2.52 x10^6/uL (4.30-5.70) Hemoglobin 8.1 g/dL (13.0-17.5) Hematocrit 24.8 % (39.0-53.0) Mean Corpuscular Volume 99 fL (79-100) Mean Corpuscular Hemoglobin 32 pg (25-35) Mean Corpuscular Hemoglobin Concent 33 g/dL (31-37) Red Cell Distribution Width 19.7 % (11.5-14.5) Platelet Count 90 x10^3/uL (140-400) Neutrophils (%) (Auto) 86 % (31-73) Lymphocytes (%) (Auto) 6 % (24-48) Monocytes (%) (Auto) 7 % (0-9) Eosinophils (%) (Auto) 2 % (0-3) Basophils (%) (Auto) 0 % (0-3) Neutrophils # (Auto) 6.8 x10^3uL (1.8-7.7) Lymphocytes # (Auto) 0.4 x10^3/uL (1.0-4.8) Monocytes # (Auto) 0.5 x10^3/uL (0.0-1.1) Eosinophils # (Auto) 0.2 x10^3/uL (0.0-0.7) Basophils # (Auto) 0.0 x10^3/uL (0.0-0.2) Sodium Level 135 mmol/L (136-145) Potassium Level 4.7 mmol/L (3.5-5.1) Chloride Level 97 mmol/L (98-107) Carbon Dioxide Level 32 mmol/L (21-32) Anion Gap 6 (6-14) Blood Urea Nitrogen 79 mg/dL (8-26) Creatinine 6.7 mg/dL (0.7-1.3) Estimated GFR (Cockcroft-Gault) 8.4 Glucose Level 127 mg/dL (70-99) Calcium Level 7.8 mg/dL (8.5-10.1) Test 07/12/17 11:44 07/12/17 16:57 07/12/17 22:02 07/13/17 07:51 Glucose (Fingerstick) 216 mg/dL (70-99) 162 mg/dL (70-99) 159 mg/dL (70-99) 107 mg/dL (70-99) Test 07/13/17 11:25 07/13/17 16:10 Glucose (Fingerstick) 196 mg/dL (70-99) 159 mg/dL (70-99) Laboratory Tests Test 07/12/17 16:57 07/12/17 22:02 07/13/17 07:51 07/13/17 11:25 Glucose (Fingerstick) 162 mg/dL (70-99) 159 mg/dL (70-99) 107 mg/dL (70-99) 196 mg/dL (70-99) Test 07/13/17 16:10 Glucose (Fingerstick) 159 mg/dL (70-99) Microbiology 07/02/17 Anaerobic/Aerobic Culture - Final, Complete 07/02/17 Anaerobic Culture Result 1 (BELKIS) - Final, Complete 07/02/17 Aerobic Culture - Final, Complete 07/02/17 Aerobic Culture Result 1 (BELKIS) - Final, Complete Medications Current Medications Ondansetron HCl (Zofran) 4 mg PRN Q6HRS PRN IV NAUSEA/VOMITING; Start 07/02/17 at 07:00; Stop 07/03/17 at 06:59; Status DC Fentanyl Citrate (Fentanyl 2ml Vial) 25 mcg PRN Q5MIN PRN IV MILD PAIN; Start 07/02/17 at 07:00; Stop 07/03/17 at 06:59; Status DC Fentanyl Citrate (Fentanyl 2ml Vial) 50 mcg PRN Q5MIN PRN IV MODERATE PAIN; Start 07/02/17 at 07:00; Stop 07/03/17 at 06:59; Status DC Morphine Sulfate 1 mg PRN Q10MIN PRN IV SEVERE PAIN; Start 07/02/17 at 07:00; Stop 07/03/17 at 06:59; Status DC Ringer's Solution 1,000 ml @ 30 mls/hr Q24H IV ; Start 07/02/17 at 07:00; Stop 07/02/17 at 18:59; Status DC Lidocaine HCl (Xylocaine-Mpf 1% Vial) 2 ml PRN 1X PRN ID IV START; Start at 07:00; Stop 07/03/17 at 06:59; Status DC Hydromorphone HCl (Dilaudid) 0.5 mg PRN Q10MIN PRN IV SEV PAIN, Second choice; Start 07/02/17 at 07:00; Stop 07/03/17 at 06:59; Status DC Prochlorperazine Edisylate (Compazine) 5 mg PACU PRN PRN IV NAUSEA, MRX1; Start 07/02/17 at 07:00; Stop 07/03/17 at 06:59; Status DC Lidocaine HCl 30 ml STK-MED ONCE .ROUTE ; Start 07/02/17 at 07:13; Stop at 07:14; Status DC Bupivacaine HCl (Sensorcaine Mpf 0.5%) 30 ml STK-MED ONCE .ROUTE ; Start at 07:13; Stop 07/02/17 at 07:14; Status DC Clindamycin Phosphate 50 ml @ As Directed STK-MED ONCE IV ; Start 07/02/17 at 08 :19; Stop 07/02/17 at 08:20; Status DC Al Hydroxide/Mg Hydroxide (Mylanta Plus Xs) 30 ml PRN Q3HRS PRN PO HEARTBURN / GAS; Start 07/02/17 at 08:30 Oxycodone HCl (Roxicodone) 5 mg PRN Q3HRS PRN PO BREAKTHROUGH PAIN; Start 07/02 at 08:30 Morphine Sulfate 1 mg PRN Q1HR PRN IV PAIN; Start 07/02/17 at 08:30 Acetaminophen/ Hydrocodone Bitart (Lortab 5/325) 1 tab PRN Q4HRS PRN PO MODERATE - SEVERE PAIN Last administered on 07/10/17 01:55; Start 07/02/17 at 08:30 Senna/Docusate Sodium (Senna Plus) 1 tab BID PO Last administered on 08:19; Start 07/02/17 at 10:00 Magnesium Hydroxide (Milk Of Magnesia) 2,400 mg PRN Q12HR PRN PO CONSTIPATION; Start 07/02/17 at 08:30 Sodium Chloride 1,000 ml @ 100 mls/hr Q10H IV Last administered on 07/02/17 08:51; Start 07/02/17 at 08:30; Stop 07/03/17 at 10:02; Status DC Allopurinol (Zyloprim) 100 mg DAILY PO Last administered on 07/13/17 08:19; Start 07/02/17 at 09:00 Aspirin (Ecotrin) 81 mg DAILY PO Last administered on 07/13/17 08:10; Start 07/02/17 at 09:00 Vitamin D (Vitamin D3) 1,000 unit DAILY PO Last administered on 07/13/17 08: 11; Start 07/02/17 at 09:00 Clonidine HCl (Catapres) 0.2 mg BID PO Last administered on 07/13/17 08:11; Start 07/02/17 at 09:00 Darbepoetin Fredi (Aranesp) 60 mcg Sa SQ ; Start 07/05/17 at 21:00; Stop at 21:00; Status DC Docusate Sodium (Colace) 200 mg DAILY PO Last administered on 07/13/17 08:12 ; Start 07/02/17 at 10:00 Doxazosin Mesylate (Cardura) 4 mg HS PO Last administered on 07/12/17 21:45; Start 07/02/17 at 21:00 Ferrous Sulfate (Feosol) 325 mg DAILYWBKFT PO Last administered on 07/13/17 08:10; Start 07/02/17 at 09:00 Vitamin B Complex/ Vitamin C (Richelle-Harsha) 1 tab DAILY PO Last administered on 08:11; Start 07/02/17 at 09:00 Furosemide (Lasix) 80 mg BID92 PO Last administered on 07/13/17 13:26; Start 07/02/17 at 09:00 Albuterol/ Ipratropium (Duoneb) 3 ml TID NEB Last administered on 07/13/17 13 :23; Start 07/02/17 at 09:00 Lisinopril (Prinivil) 5 mg HS PO Last administered on 07/06/17 22:26; Start 07/02/17 at 21:00; Stop 07/07/17 at 13:59; Status DC Metoprolol Succinate (Toprol Xl) 25 mg DAILY PO Last administered on 08:13; Start 07/02/17 at 09:00 Sodium Bicarbonate (Sodium Bicarbonate) 650 mg TIDAC PO Last administered on 11:54; Start 07/02/17 at 11:30 Tamsulosin HCl (Flomax) 0.4 mg DAILY PO Last administered on 07/13/17 08:10; Start 07/02/17 at 09:00 Calcium Acetate (Phoslo) 667 mg TIDWMEALS PO Last administered on 07/13/17 11 :54; Start 07/02/17 at 12:00 Calcium Carbonate/ Glycine (Tums) 500 mg TIDWMEALS PO Last administered on 11:54; Start 07/02/17 at 12:00 Carvedilol (Coreg) 25 mg BIDWMEALS PO Last administered on 07/13/17 08:10; Start 07/02/17 at 17:00 Insulin Detemir (Levemir) 20 units QHS SQ Last administered on 07/12/17 22:09 ; Start 07/02/17 at 21:00 Potassium Chloride (Klor-Con) 20 meq BIDWMEALS PO Last administered on 09:14; Start 07/02/17 at 10:00; Stop 07/03/17 at 10:02; Status DC Atorvastatin Calcium (Lipitor) 5 mg QHS PO Last administered on 07/12/17 21: 42; Start 07/02/17 at 21:00 Non-Formulary Medication 400 mg BID PO ; Start 07/02/17 at 09:00; Stop 07/02/17 at 10:20; Status DC Zolpidem Tartrate (Ambien) 5 mg PRN QHS PRN PO INSOMNIA; Start 07/02/17 at 10: 15 Insulin Aspart (NovoLOG) 0-5 UNITS TIDWMEALS SQ Last administered on 07/02/17t 17:22; Start 07/02/17 at 12:00; Stop 07/03/17 at 08:59; Status DC Dextrose (Dextrose 50%-Water Syringe) 12.5 gm PRN Q15MIN PRN IV SEE COMMENTS; Start 07/02/17 at 08:30; Stop 07/03/17 at 14:12; Status DC Clindamycin Phosphate 50 ml @ 100 mls/hr 1X ONCE IV ; Start 07/02/17 at 08:45 ; Stop 07/02/17 at 09:03; Status DC Propofol 20 ml @ As Directed STK-MED ONCE IV ; Start 07/02/17 at 08:44; Stop at 08:45; Status DC Lidocaine HCl (Lidocaine Pf 2% Vial) 5 ml STK-MED ONCE .ROUTE ; Start 07/02/17 at 08:44; Stop 07/02/17 at 08:45; Status DC Midazolam HCl (Versed) 2 mg STK-MED ONCE .ROUTE ; Start 07/02/17 at 08:45; Stop 07/02/17 at 08:46; Status DC Ephedrine Sulfate (Akovaz) 50 mg STK-MED ONCE .ROUTE ; Start 07/02/17 at 09:28; Stop 07/02/17 at 09:29; Status DC Phenylephrine HCl (Krunal-Synephrine Inj) 10 mg STK-MED ONCE .ROUTE ; Start at 09:37; Stop 07/02/17 at 09:38; Status DC Dexamethasone Sodium Phosphate (Decadron) 20 mg STK-MED ONCE .ROUTE ; Start 07/02/17 at 09:37; Stop 07/02/17 at 09:38; Status DC Ondansetron HCl (Zofran) 4 mg STK-MED ONCE .ROUTE ; Start 07/02/17 at 09:37; Stop 07/02/17 at 09:38; Status DC Sevoflurane (Ultane) 15 ml STK-MED ONCE IH ; Start 07/02/17 at 09:53; Stop 07/02 at 09:54; Status DC Zolpidem Tartrate (Ambien) 5 mg QHS PO Last administered on 07/12/17 21:42; Start 07/02/17 at 21:00 Acetaminophen (Tylenol) 650 mg PRN Q6HRS PRN PO FEVER Last administered on 21:02; Start 07/02/17 at 15:45 Ondansetron HCl (Zofran) 4 mg PRN Q6HRS PRN IV NAUSEA/VOMITING; Start 07/02/17 at 15:45 Morphine Sulfate 2 mg PRN Q2HR PRN IV PAIN Last administered on 07/10/17 17: 32; Start 07/02/17 at 15:45 Tramadol HCl (Ultram) 50 mg PRN Q6HRS PRN PO MILD PAIN Last administered on 12:44; Start 07/02/17 at 15:45 Hydralazine HCl (Apresoline Inj) 10 mg PRN Q4HRS PRN IVP ELEVATED BP, SEE COMMENTS; Start 07/02/17 at 15:45 Docusate Sodium (Colace) 100 mg PRN DAILY PRN PO CONSTIPATION; Start 07/02/17 at 15:45 Insulin Aspart (NovoLOG) 0-9 UNITS TIDWMEALS SQ Last administered on 12:03; Start 07/03/17 at 12:00 Dextrose (Dextrose 50%-Water Syringe) 12.5 gm PRN Q15MIN PRN IV SEE COMMENTS; Start 07/03/17 at 09:00 Magnesium Sulfate/ Dextrose 50 ml @ 25 mls/hr PRN DAILY PRN IV for Mag < 1.7 on am labs; Start 07/03/17 at 09:15 Clindamycin Phosphate (Cleocin 900mg Premix) 900 mg STK-MED ONCE IV ; Start 07/02/17 at 08:00; Stop 07/03/17 at 09:11; Status DC Insulin Aspart (NovoLOG) 5 units 1X ONCE SQ Last administered on 07/03/17 09: 46; Start 07/03/17 at 09:30; Stop 07/03/17 at 09:31; Status DC Potassium Chloride (Klor-Con) 20 meq BIDWMEALS PO Last administered on 16:37; Start 07/03/17 at 17:00 Ciprofloxacin/ Dextrose 200 ml @ 200 mls/hr DAILY IV ; Start 07/03/17 at 14:00 ; Stop 07/03/17 at 14:38; Status DC Ciprofloxacin/ Dextrose 200 ml @ 200 mls/hr Q18H IV ; Start 07/04/17 at 09:00 ; Stop 07/04/17 at 11:51; Status DC Ciprofloxacin/ Dextrose 200 ml @ 200 mls/hr 1X ONCE IV Last administered on 07/03/17 16:24; Start 07/03/17 at 15:30; Stop 07/04/17 at 11:51; Status DC Magnesium Sulfate/ Dextrose 50 ml @ 25 mls/hr 1X ONCE IV Last administered on 07/04/17 11:41; Start 07/04/17 at 10:30; Stop 07/04/17 at 12:29; Status DC Ertapenem 0.5 gm/ Sodium Chloride 50 ml @ 100 mls/hr DAILY08 IV ; Start at 08:00; Status UNV Meropenem (Merrem) 500 mg Q24H IVP Last administered on 07/11/17 13:22; Start 07/04/17 at 13:00; Stop 07/11/17 at 14:00; Status DC Darbepoetin Fredi (Aranesp) 100 mcg QSA@2100 SQ Last administered on 07/12/17 21:49; Start 07/05/17 at 21:00 Lactobacillus Rhamnosus (Culturelle) 1 cap BID PO Last administered on 08:09; Start 07/06/17 at 21:00 Lisinopril (Prinivil) 10 mg QHS PO Last administered on 07/07/17 20:59; Start 07/07/17 at 21:00; Stop 07/08/17 at 14:45; Status DC Polyethylene Glycol (miraLAX PACKET) 17 gm PRN DAILY PRN PO CONSTIPATION Last administered on 07/07/17 21:15; Start 07/07/17 at 21:00 Lisinopril (Prinivil) 20 mg QHS PO Last administered on 07/12/17 21:44; Start 07/08/17 at 21:00 Ondansetron HCl (Zofran) 4 mg PRN Q6HRS PRN IV NAUSEA/VOMITING; Start at 07:00; Stop 07/10/17 at 06:59; Status DC Fentanyl Citrate (Fentanyl 2ml Vial) 25 mcg PRN Q5MIN PRN IV MILD PAIN; Start 07/09/17 at 07:00; Stop 07/10/17 at 06:59; Status DC Fentanyl Citrate (Fentanyl 2ml Vial) 50 mcg PRN Q5MIN PRN IV MODERATE PAIN; Start 07/09/17 at 07:00; Stop 07/10/17 at 06:59; Status DC Morphine Sulfate 1 mg PRN Q10MIN PRN IV SEVERE PAIN; Start 07/09/17 at 07:00; Stop 07/10/17 at 06:59; Status DC Ringer's Solution 1,000 ml @ 30 mls/hr Q24H IV ; Start 07/09/17 at 07:00; Stop 07/09/17 at 18:59; Status Cancel Lidocaine HCl (Xylocaine-Mpf 1% Vial) 2 ml PRN 1X PRN ID IV START; Start 07/09 at 07:00; Stop 07/10/17 at 06:59; Status DC Hydromorphone HCl (Dilaudid) 0.5 mg PRN Q10MIN PRN IV SEV PAIN, Second choice; Start 07/09/17 at 07:00; Stop 07/10/17 at 06:59; Status DC Prochlorperazine Edisylate (Compazine) 5 mg PACU PRN PRN IV NAUSEA, MRX1; Start 07/09/17 at 07:00; Stop 07/10/17 at 06:59; Status DC Ondansetron HCl (Zofran) 4 mg PRN Q6HRS PRN IV NAUSEA/VOMITING; Start at 07:00; Stop 07/11/17 at 06:59; Status DC Fentanyl Citrate (Fentanyl 2ml Vial) 25 mcg PRN Q5MIN PRN IV MILD PAIN; Start 07/10/17 at 07:00; Stop 07/11/17 at 06:59; Status DC Fentanyl Citrate (Fentanyl 2ml Vial) 50 mcg PRN Q5MIN PRN IV MODERATE PAIN Last administered on 07/10/17t 14:54; Start 07/10/17 at 07:00; Stop 07/11/17 at 06:59; Status DC Morphine Sulfate 1 mg PRN Q10MIN PRN IV SEVERE PAIN Last administered on t 15:05; Start 07/10/17 at 07:00; Stop 07/11/17 at 06:59; Status DC Ringer's Solution 1,000 ml @ 30 mls/hr Q24H IV ; Start 07/10/17 at 07:00; Stop 07/10/17 at 18:59; Status DC Lidocaine HCl (Xylocaine-Mpf 1% Vial) 2 ml PRN 1X PRN ID IV START; Start 07/10 at 07:00; Stop 07/11/17 at 06:59; Status DC Hydromorphone HCl (Dilaudid) 0.5 mg PRN Q10MIN PRN IV SEV PAIN, Second choice Last administered on 07/10/17 15:58; Start 07/10/17 at 07:00; Stop 07/11/17 at 06:59; Status DC Prochlorperazine Edisylate (Compazine) 5 mg PACU PRN PRN IV NAUSEA, MRX1 Last administered on 07/10/17 15:35; Start 07/10/17 at 07:00; Stop 07/11/17 at 06 :59; Status DC Sevoflurane (Ultane) 60 ml STK-MED ONCE IH ; Start 07/10/17 at 11:08; Stop at 11:09; Status DC Fentanyl Citrate (Fentanyl 2ml Vial) 100 mcg STK-MED ONCE .ROUTE ; Start at 11:11; Stop 07/10/17 at 11:12; Status DC Propofol 0 ml @ As Directed STK-MED ONCE IV ; Start 07/10/17 at 11:11; Stop at 11:12; Status DC Lidocaine HCl (Lidocaine Pf 2% Vial) 5 ml STK-MED ONCE .ROUTE ; Start 07/10/17 at 11:11; Stop 07/10/17 at 11:12; Status DC Dexamethasone Sodium Phosphate (Decadron) 20 mg STK-MED ONCE .ROUTE ; Start at 11:11; Stop 07/10/17 at 11:12; Status DC Ondansetron HCl (Zofran) 4 mg STK-MED ONCE .ROUTE ; Start 07/10/17 at 11:11; Stop 07/10/17 at 11:12; Status DC Etomidate (Amidate) 20 mg STK-MED ONCE IV ; Start 07/10/17 at 11:48; Stop at 11:49; Status DC Ephedrine Sulfate (Akovaz) 50 mg STK-MED ONCE .ROUTE ; Start 07/10/17 at 12:52 ; Stop 07/10/17 at 12:53; Status DC Hydralazine HCl (Apresoline Inj) 20 mg STK-MED ONCE .ROUTE ; Start 07/10/17 at 13:16; Stop 07/10/17 at 13:17; Status DC Fentanyl Citrate (Fentanyl 2ml Vial) 100 mcg STK-MED ONCE .ROUTE ; Start at 13:17; Stop 07/10/17 at 13:18; Status DC Acetaminophen/ Hydrocodone Bitart (Lortab 7.5/325) 1 tab PRN Q4HRS PRN PO PAIN Last administered on 07/13/17t 13:26; Start 07/11/17 at 08:15 Info (PHARMACY MONITORING -- do not chart) 1 each PRN DAILY PRN MC SEE COMMENTS ; Start 07/13/17 at 15:00 Magnesium Sulfate/ Dextrose 50 ml @ 25 mls/hr PRN DAILY PRN IV for Mag < 1.7 on am labs; Start 07/13/17 at 15:15 Active Scripts Active Reported Carvedilol 25 Mg Tablet 1 Tab PO BID Coq-10 (Ubidecarenone) 100 Mg Capsule 400 Mg PO BID Krill Oil 500 mg Softgel (Krill/Om-3/Dha/Epa/Phospho/Ast) 1 Each Capsule 1 Each PO DAILY Vitamin D3 (Cholecalciferol (Vitamin D3)) 1,000 Unit Tablet 1 Tab PO DAILY Potassium Chloride 20 Meq Tablet.er 20 Meq PO BID Metoprolol Succinate ( Xl ) (Metoprolol Succinate) 25 Mg Tab.er.24h 1 Tab PO DAILY Calcium Acetate 667 Mg Tablet 1,334 Mg PO TIDWMEALS Ambien (Zolpidem Tartrate) 10 Mg Tablet 1 Tab PO QHS Humalog (Insulin Lispro) 100 Unit/1 Ml Cartridge 0 SQ Doxazosin Mesylate 4 Mg Tablet 4 Mg PO HS Nephro-Harsha Tablet (Folic Acid/Vitamin B Comp W-C) 0.8 Mg Tablet 1 Tab PO DAILY Aspir 81 (Aspirin) 81 Mg Tablet.dr 1 Tab PO DAILY Furosemide 80 Mg Tablet 80 Mg PO BID Sodium Bicarbonate 650 Mg Tablet 1 Tab PO TIDAC Artificial Tears Eye Drops (Dextran 70/Hypromellose) 15 Ml Drops 1 Drop EACHEYE BID Pravastatin Sodium 10 Mg Tablet 1 Tab PO QHS Tamsulosin Hcl 0.4 Mg Cap.er.24h 1 Cap PO DAILY Docusate Sodium 100 Mg Capsule 200 Mg PO DAILY Aranesp Syringe (Darbepoetin Fredi In Polysorbat) 60 Mcg/0.3 Ml Disp.syrin 60 Mcg SQ WEEKLY Ferrous Sulfate 325 Mg Tablet 1 Tab PO DAILY Duoneb 0.5-3(2.5) Mg/3 Ml (Albuterol/Ipratropium) 3 Ml Ampul.neb 3 Ml NEB TID Tums Ultra (Calcium Carbonate) 400 Mg Tab.chew 500 Mg PO TID Allopurinol 100 Mg Tablet 1 Tab PO DAILY Clonidine Hcl 0.2 Mg Tablet 1 Tab PO PRN TAKES ONLY IF HIS BLOOD PRESSURE IS ELEVATED Lisinopril 5 Mg Tablet 1 Tab PO HS Levemir (Insulin Detemir) 100 Unit/1 Ml Vial 20 Unit SQ HS Vitals/I & O Vital Sign - Last 24 Hours 07/12/17 07/12/17 07/12/17 07/12/17 17:32 17:40 19:00 19:20 Temp 96.4 98.1 96.4 98.1 Pulse 75 80 75 Resp 18 B/P (MAP) 141/40 136/46 (76) 141/40 (73) Pulse Ox 98 90 98 O2 Delivery Room Air Room Air Room Air 07/12/17 07/12/17 07/12/17 07/12/17 19:28 19:50 21:44 21:45 Pulse 75 75 B/P (MAP) 163/78 163/78 Pulse Ox 98 O2 Delivery Room Air Room Air 07/12/17 07/12/17 07/13/17 07/13/17 21:46 23:00 03:00 07:12 Temp 96.4 96.4 Pulse 75 78 Resp 18 18 B/P (MAP) 163/78 141/47 (78) Pulse Ox 100 O2 Delivery Room Air Room Air Room Air 07/13/17 07/13/17 07/13/17 07/13/17 07:45 08:10 08:11 08:13 Temp 99.3 99.3 Pulse 79 79 79 79 Resp 20 B/P (MAP) 149/54 (85) 149/54 149/54 149/54 Pulse Ox 98 O2 Delivery Room Air 07/13/17 07/13/17 07/13/17 07/13/17 08:13 09:56 11:00 11:10 Temp 97.7 99.3 97.7 99.3 Pulse 81 79 Resp 16 B/P (MAP) 146/72 (96) 149/54 (85) Pulse Ox 98 97 95 98 O2 Delivery Room Air Room Air Room Air Room Air 07/13/17 07/13/17 07/13/17 07/13/17 11:45 13:24 13:26 14:30 Temp 97.7 97.7 Pulse 81 Resp 16 B/P (MAP) 146/72 (96) Pulse Ox 95 95 95 O2 Delivery Room Air Room Air Room Air Room Air 07/13/17 07/13/17 15:00 15:45 Temp 98.1 97.8 98.1 97.8 Pulse 85 79 Resp 18 B/P (MAP) 171/47 (88) 152/68 (96) Pulse Ox 96 95 O2 Delivery Room Air Room Air Intake and Output 07/12/17 07/12/17 07/13/17 15:00 23:00 07:00 Intake Total 320 ml Output Total 200 ml 200 ml Balance -200 ml 120 ml JOSE MENDOZA MD Jul 13, 2017 16:55
[2017-07-13] MEDS ORDERED: GABAPENTIN 300 MG CAPSULE. PO ONE (17:00)
[2017-07-13] MEDS: ATORVASTATIN CALCIUM 10 MG TABLET. PO SCH (21:22)
[2017-07-13] MEDS: ZOLPIDEM 5 MG TABLET. PO SCH (21:22)
[2017-07-13] MEDS: LISINOPRIL 20 MG TABLET PO SCH (21:23)
[2017-07-13] MEDS: DOXAZOSIN MESYLATE 4 MG TABLET. PO SCH (21:24)
[2017-07-13] MEDS: INSULIN DETEMIR 300 UNITS/3 ML INSULN.PEN. SQ SCH (21:34)
[2017-07-14] VITALS (9 sets, daily range): BP systolic 104–156; BP diastolic 35–79
[2017-07-14] MEDS: MORPHINE SULFATE 4 MG/ML DISP.SYRIN. IV PRN (05:18)
[2017-07-14 07:00] LABS: ALBUMIN 2.1 g/dL (3.4-5.0); CALCIUM 8.1 mg/dL (8.5-10.1); CREATININE 6.9 mg/dL (0.7-1.3); GFR 8.2; PHOSPHORUS 7.7 mg/dL (2.6-4.7); POTASSIUM 4.5 mmol/L (3.5-5.1)
[2017-07-14] MEDS: IPRATRPIUM/ALBUTEROL 0.5/2.5MG 3 ML NEBU. NEB SCH ×3 (07:15→20:19)
[2017-07-14] MEDS: POTASSIUM CHLORIDE 20 MEQ TABLET.ER. PO SCH ×2 (08:00→17:00)
[2017-07-14] MEDS: INSULIN ASPART 300 UNITS/3 ML INSULN.PEN SQ SCH ×3 (08:00→17:19)
[2017-07-14] MEDS: CALCIUM ACETATE 667 MG CAPSULE PO SCH ×3 (08:38→17:02)
[2017-07-14] MEDS: SODIUM BICARBONATE 650 MG TABLET. PO SCH ×3 (08:38→17:02)
[2017-07-14] MEDS: FERROUS SULFATE 325 MG TABLET. PO SCH (08:38)
[2017-07-14] MEDS: DOCUSATE SODIUM 100 MG CAPSULE. PO SCH (08:39)
[2017-07-14] MEDS: CHOLECALCIFEROL (VITAMIN D3) 1,000 UNIT TABLET PO SCH (08:39)
[2017-07-14] MEDS: CALCIUM CARBONATE 500 MG TAB.CHEW PO SCH ×3 (08:39→17:02)
[2017-07-14] MEDS: ALLOPURINOL 100 MG TABLET. PO SCH (08:39)
[2017-07-14] MEDS: FUROSEMIDE 80 MG TABLET. PO SCH ×2 (08:39→14:16)
[2017-07-14] MEDS: LACTOBACILLUS RHAMNOSUS GG 1 CAPSULE. PO SCH ×2 (08:39→22:14)
[2017-07-14] MEDS: METOPROLOL SUCC 24HR ER 25 MG TAB.ER.24H. PO SCH (08:40)
[2017-07-14] MEDS: ASPIRIN ENTERIC COATED 81 MG TABLET.DR. PO SCH (08:41)
[2017-07-14] MEDS: CARVEDILOL 12.5 MG TABLET. PO SCH ×2 (08:41→17:03)
[2017-07-14] MEDS: cloNIDine HCL 0.2 MG TABLET PO SCH ×2 (08:46→21:00)
[2017-07-14] MEDS: FOLIC/VIT B COMP W-C (RENAL) TABLET. PO SCH (09:00)
[2017-07-14] MEDS: TAMSULOSIN 0.4 MG CAP.ER.24H. PO SCH (09:00)
[2017-07-14] MEDS: SENNOSIDES/DOCUSATE 8.6/50MG TABLET. PO SCH ×2 (09:00→22:14)
--- NOTE | 2017-07-14 11:48 | PDOC ---
ORTHO PROGRESS NOTES Subjective c/o pain at amp site, has some phantom pain as well. No other complaints Vitals Vital Signs Date Time Temp Pulse Resp B/P (MAP) Pulse Ox O2 Delivery O2 Flow Rate FiO2 07/14/17 08:46 82 156/50 07/14/17 07:35 Room Air 07/14/17 07:16 92 07/14/17 07:00 97.6 20 97.6 Labs Laboratory Tests Test 07/12/17 16:57 07/12/17 22:02 07/13/17 07:51 07/13/17 11:25 Glucose (Fingerstick) 162 mg/dL (70-99) 159 mg/dL (70-99) 107 mg/dL (70-99) 196 mg/dL (70-99) Test 07/13/17 16:10 07/13/17 20:59 07/14/17 06:21 07/14/17 07:55 Glucose (Fingerstick) 159 mg/dL (70-99) 158 mg/dL (70-99) 130 mg/dL (70-99) Hemoglobin 7.8 g/dL (13.0-17.5) Sodium Level 134 mmol/L (136-145) Potassium Level 4.5 mmol/L (3.5-5.1) Chloride Level 96 mmol/L (98-107) Carbon Dioxide Level 30 mmol/L (21-32) Anion Gap 8 (6-14) Blood Urea Nitrogen 90 mg/dL (8-26) Creatinine 6.9 mg/dL (0.7-1.3) Estimated GFR (Cockcroft-Gault) 8.2 Glucose Level 84 mg/dL (70-99) Calcium Level 8.1 mg/dL (8.5-10.1) Phosphorus Level 7.7 mg/dL (2.6-4.7) Magnesium Level 2.1 mg/dL (1.8-2.4) Albumin 2.1 g/dL (3.4-5.0) Test 07/14/17 11:03 Glucose (Fingerstick) 138 mg/dL (70-99) Laboratory Tests Test 07/13/17 16:10 07/13/17 20:59 07/14/17 06:21 07/14/17 07:55 Glucose (Fingerstick) 159 mg/dL (70-99) 158 mg/dL (70-99) 130 mg/dL (70-99) Hemoglobin 7.8 g/dL (13.0-17.5) Sodium Level 134 mmol/L (136-145) Potassium Level 4.5 mmol/L (3.5-5.1) Chloride Level 96 mmol/L (98-107) Carbon Dioxide Level 30 mmol/L (21-32) Anion Gap 8 (6-14) Blood Urea Nitrogen 90 mg/dL (8-26) Creatinine 6.9 mg/dL (0.7-1.3) Estimated GFR (Cockcroft-Gault) 8.2 Glucose Level 84 mg/dL (70-99) Calcium Level 8.1 mg/dL (8.5-10.1) Phosphorus Level 7.7 mg/dL (2.6-4.7) Magnesium Level 2.1 mg/dL (1.8-2.4) Albumin 2.1 g/dL (3.4-5.0) Test 07/14/17 11:03 Glucose (Fingerstick) 138 mg/dL (70-99) Notes A, little more drowsy today. in bed brace in place Assessment and Plan went up a dose on Lortab cont neurontin possibly D/C later today if pain better controlled JOSELITO PONCE II, MD Jul 14, 2017 11:48
[2017-07-14] MEDS: HYDROcodone/APAP 10/325 1 TAB TABLET PO PRN ×2 (12:11→17:04)
--- NOTE | 2017-07-14 12:21 | PDOC ---
Dialysis Progress Note Dialysis Note Dialysis Note Seen on CAPD, tolerating treatment Well Vitals as documented General Appearance: Awake: Alert Oriented x 3 Neck: No JVD or JVP Chest: CTA Stan[place]law Heart: S1 S2 Abdomen - Soft NTND Extremities - No Edema ESRD: ct same CAPD as orderd Vitals Vital Signs Vital Signs Date Time Temp Pulse Resp B/P (MAP) Pulse Ox O2 Delivery O2 Flow Rate FiO2 07/14/17 12:11 94 Room Air 07/14/17 11:00 98.7 77 18 128/77 (94) 98.7 07/11/17 15:00 2.0 Labs Last Labs Laboratory Tests Test 07/12/17 16:57 07/12/17 22:02 07/13/17 07:51 07/13/17 11:25 Glucose (Fingerstick) 162 mg/dL (70-99) 159 mg/dL (70-99) 107 mg/dL (70-99) 196 mg/dL (70-99) Test 07/13/17 16:10 07/13/17 20:59 07/14/17 06:21 07/14/17 07:55 Glucose (Fingerstick) 159 mg/dL (70-99) 158 mg/dL (70-99) 130 mg/dL (70-99) Hemoglobin 7.8 g/dL (13.0-17.5) Sodium Level 134 mmol/L (136-145) Potassium Level 4.5 mmol/L (3.5-5.1) Chloride Level 96 mmol/L (98-107) Carbon Dioxide Level 30 mmol/L (21-32) Anion Gap 8 (6-14) Blood Urea Nitrogen 90 mg/dL (8-26) Creatinine 6.9 mg/dL (0.7-1.3) Estimated GFR (Cockcroft-Gault) 8.2 Glucose Level 84 mg/dL (70-99) Calcium Level 8.1 mg/dL (8.5-10.1) Phosphorus Level 7.7 mg/dL (2.6-4.7) Magnesium Level 2.1 mg/dL (1.8-2.4) Albumin 2.1 g/dL (3.4-5.0) Test 07/14/17 11:03 Glucose (Fingerstick) 138 mg/dL (70-99) Laboratory Tests Test 07/13/17 16:10 11/19/17 20:59 07/14/17 06:21 07/14/17 07:55 Glucose (Fingerstick) 159 mg/dL (70-99) 158 mg/dL (70-99) 130 mg/dL (70-99) Hemoglobin 7.8 g/dL (13.0-17.5) Sodium Level 134 mmol/L (136-145) Potassium Level 4.5 mmol/L (3.5-5.1) Chloride Level 96 mmol/L (98-107) Carbon Dioxide Level 30 mmol/L (21-32) Anion Gap 8 (6-14) Blood Urea Nitrogen 90 mg/dL (8-26) Creatinine 6.9 mg/dL (0.7-1.3) Estimated GFR (Cockcroft-Gault) 8.2 Glucose Level 84 mg/dL (70-99) Calcium Level 8.1 mg/dL (8.5-10.1) Phosphorus Level 7.7 mg/dL (2.6-4.7) Magnesium Level 2.1 mg/dL (1.8-2.4) Albumin 2.1 g/dL (3.4-5.0) Test 07/14/17 11:03 Glucose (Fingerstick) 138 mg/dL (70-99) MIREYA HART MD Jul 14, 2017 12:21
--- NOTE | 2017-07-14 13:23 | PDOC ---
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 recent left toes osteo post toes amputation with wound dehiscence recent Recurrent UGIB, s/p EGD, with gastric ulcer post clip and epi injection recent acute on chronic resp failure, post intubation, trach removed ESRD previous on PD,on short term of HD, back to PD now recent CAD with 3rd degree AVB with PPM/ICD DM2 ON insulin dysphagia resolved morbid obesity, BMI 32.5 acute on chronic anemia, esrd, gib h/o thrombocytopenia moderate malnutrition History of Present Illness History of Present Illness s/p amputation, now with neuropathic pain, sharp electric pain, phantom pain to foot that isn't there Lft leg with Ampushield. Pt is also on peritoneal dialysis and has a PICC line. PLAN transfer to ACUTE rehab, [facility] pending Vitals Vitals Vital Signs Date Time Temp Pulse Resp B/P (MAP) Pulse Ox O2 Delivery O2 Flow Rate FiO2 07/14/17 13:04 Room Air 07/14/17 12:11 94 07/14/17 11:00 98.7 77 18 128/77 (94) 98.7 Physical Exam General: Alert, Oriented X3, Cooperative, No acute distress Heart: Regular rate, Normal S1, Normal S2, No murmurs Lungs: Clear, Other (No wheezes, rhonchi, rales) Extremities: No edema Skin: No significant lesion Labs LABS Laboratory Tests Test 07/13/17 16:10 07/13/17 20:59 07/14/17 06:21 07/14/17 07:55 Glucose (Fingerstick) 159 mg/dL (70-99) 158 mg/dL (70-99) 130 mg/dL (70-99) Hemoglobin 7.8 g/dL (13.0-17.5) Sodium Level 134 mmol/L (136-145) Potassium Level 4.5 mmol/L (3.5-5.1) Chloride Level 96 mmol/L (98-107) Carbon Dioxide Level 30 mmol/L (21-32) Anion Gap 8 (6-14) Blood Urea Nitrogen 90 mg/dL (8-26) Creatinine 6.9 mg/dL (0.7-1.3) Estimated GFR (Cockcroft-Gault) 8.2 Glucose Level 84 mg/dL (70-99) Calcium Level 8.1 mg/dL (8.5-10.1) Phosphorus Level 7.7 mg/dL (2.6-4.7) Magnesium Level 2.1 mg/dL (1.8-2.4) Albumin 2.1 g/dL (3.4-5.0) Test 07/14/17 11:03 Glucose (Fingerstick) 138 mg/dL (70-99) Review of Systems Review of Systems General: No fatigue, hunger, fever, chills CV: No palpitations, chest pain GI: No nausea, vomiting, Assessment and Plan Assessmemt and Plan Assessment: Left foot midfoot amputation with wound dehiscence post i and d on 07/02, cx + KPNA ESBL/MDR, amputation 07/09, 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 recent Left foot gangree,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 recent left toes osteo post toes amputation with wound dehiscence recent Recurrent UGIB, s/p EGD, with gastric ulcer post clip and epi injection recent acute on chronic resp failure, post intubation, trach removed ESRD previous on PD,on short term of HD, back to PD now recent 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 Labs Laboratory Tests Test 07/12/17 16:57 07/12/17 22:02 07/13/17 07:51 07/13/17 11:25 Glucose (Fingerstick) 162 mg/dL (70-99) 159 mg/dL (70-99) 107 mg/dL (70-99) 196 mg/dL (70-99) Test 07/13/17 16:10 07/13/17 20:59 07/14/17 06:21 07/14/17 07:55 Glucose (Fingerstick) 159 mg/dL (70-99) 158 mg/dL (70-99) 130 mg/dL (70-99) Hemoglobin 7.8 g/dL (13.0-17.5) Sodium Level 134 mmol/L (136-145) Potassium Level 4.5 mmol/L (3.5-5.1) Chloride Level 96 mmol/L (98-107) Carbon Dioxide Level 30 mmol/L (21-32) Anion Gap 8 (6-14) Blood Urea Nitrogen 90 mg/dL (8-26) Creatinine 6.9 mg/dL (0.7-1.3) Estimated GFR (Cockcroft-Gault) 8.2 Glucose Level 84 mg/dL (70-99) Calcium Level 8.1 mg/dL (8.5-10.1) Phosphorus Level 7.7 mg/dL (2.6-4.7) Magnesium Level 2.1 mg/dL (1.8-2.4) Albumin 2.1 g/dL (3.4-5.0) Test 07/14/17 11:03 Glucose (Fingerstick) 138 mg/dL (70-99) Laboratory Tests Test 07/13/17 16:10 07/13/17 20:59 07/14/17 06:21 07/14/17 07:55 Glucose (Fingerstick) 159 mg/dL (70-99) 158 mg/dL (70-99) 130 mg/dL (70-99) Hemoglobin 7.8 g/dL (13.0-17.5) Sodium Level 134 mmol/L (136-145) Potassium Level 4.5 mmol/L (3.5-5.1) Chloride Level 96 mmol/L (98-107) Carbon Dioxide Level 30 mmol/L (21-32) Anion Gap 8 (6-14) Blood Urea Nitrogen 90 mg/dL (8-26) Creatinine 6.9 mg/dL (0.7-1.3) Estimated GFR (Cockcroft-Gault) 8.2 Glucose Level 84 mg/dL (70-99) Calcium Level 8.1 mg/dL (8.5-10.1) Phosphorus Level 7.7 mg/dL (2.6-4.7) Magnesium Level 2.1 mg/dL (1.8-2.4) Albumin 2.1 g/dL (3.4-5.0) Test 07/14/17 11:03 Glucose (Fingerstick) 138 mg/dL (70-99) Microbiology 07/02/17 Anaerobic/Aerobic Culture - Final, Complete 07/02/17 Anaerobic Culture Result 1 (BELKIS) - Final, Complete 07/02/17 Aerobic Culture - Final, Complete 07/02/17 Aerobic Culture Result 1 (BELKIS) - Final, Complete Medications Current Medications Ondansetron HCl (Zofran) 4 mg PRN Q6HRS PRN IV NAUSEA/VOMITING; Start 07/02/17 at 07:00; Stop 07/03/17 at 06:59; Status DC Fentanyl Citrate (Fentanyl 2ml Vial) 25 mcg PRN Q5MIN PRN IV MILD PAIN; Start 07/02/17 at 07:00; Stop 07/03/17 at 06:59; Status DC Fentanyl Citrate (Fentanyl 2ml Vial) 50 mcg PRN Q5MIN PRN IV MODERATE PAIN; Start 07/02/17 at 07:00; Stop 07/03/17 at 06:59; Status DC Morphine Sulfate 1 mg PRN Q10MIN PRN IV SEVERE PAIN; Start 07/02/17 at 07:00; Stop 07/03/17 at 06:59; Status DC Ringer's Solution 1,000 ml @ 30 mls/hr Q24H IV ; Start 07/02/17 at 07:00; Stop 07/02/17 at 18:59; Status DC Lidocaine HCl (Xylocaine-Mpf 1% Vial) 2 ml PRN 1X PRN ID IV START; Start at 07:00; Stop 07/03/17 at 06:59; Status DC Hydromorphone HCl (Dilaudid) 0.5 mg PRN Q10MIN PRN IV SEV PAIN, Second choice; Start 07/02/17 at 07:00; Stop 07/03/17 at 06:59; Status DC Prochlorperazine Edisylate (Compazine) 5 mg PACU PRN PRN IV NAUSEA, MRX1; Start 07/02/17 at 07:00; Stop 07/03/17 at 06:59; Status DC Lidocaine HCl 30 ml STK-MED ONCE .ROUTE ; Start 07/02/17 at 07:13; Stop at 07:14; Status DC Bupivacaine HCl (Sensorcaine Mpf 0.5%) 30 ml STK-MED ONCE .ROUTE ; Start at 07:13; Stop 07/02/17 at 07:14; Status DC Clindamycin Phosphate 50 ml @ As Directed STK-MED ONCE IV ; Start 07/02/17 at 08 :19; Stop 07/02/17 at 08:20; Status DC Al Hydroxide/Mg Hydroxide (Mylanta Plus Xs) 30 ml PRN Q3HRS PRN PO HEARTBURN / GAS; Start 07/02/17 at 08:30 Oxycodone HCl (Roxicodone) 5 mg PRN Q3HRS PRN PO BREAKTHROUGH PAIN; Start 07/02 at 08:30 Morphine Sulfate 1 mg PRN Q1HR PRN IV PAIN; Start 07/02/17 at 08:30 Acetaminophen/ Hydrocodone Bitart (Lortab 5/325) 1 tab PRN Q4HRS PRN PO MODERATE - SEVERE PAIN Last administered on 07/10/17 01:55; Start 07/02/17 at 08:30 Senna/Docusate Sodium (Senna Plus) 1 tab BID PO Last administered on 09:00; Start 07/02/17 at 10:00 Magnesium Hydroxide (Milk Of Magnesia) 2,400 mg PRN Q12HR PRN PO CONSTIPATION; Start 07/02/17 at 08:30 Sodium Chloride 1,000 ml @ 100 mls/hr Q10H IV Last administered on 07/02/17 08:51; Start 07/02/17 at 08:30; Stop 07/03/17 at 10:02; Status DC Allopurinol (Zyloprim) 100 mg DAILY PO Last administered on 07/14/17 08:39; Start 07/02/17 at 09:00 Aspirin (Ecotrin) 81 mg DAILY PO Last administered on 07/14/17 08:41; Start 07/02/17 at 09:00 Vitamin D (Vitamin D3) 1,000 unit DAILY PO Last administered on 07/14/17 08: 39; Start 07/02/17 at 09:00 Clonidine HCl (Catapres) 0.2 mg BID PO Last administered on 07/14/17 08:46; Start 07/02/17 at 09:00 Darbepoetin Fredi (Aranesp) 60 mcg Sa SQ ; Start 07/05/17 at 21:00; Stop at 21:00; Status DC Docusate Sodium (Colace) 200 mg DAILY PO Last administered on 07/14/17 08:39 ; Start 07/02/17 at 10:00 Doxazosin Mesylate (Cardura) 4 mg HS PO Last administered on 07/13/17 21:24; Start 07/02/17 at 21:00 Ferrous Sulfate (Feosol) 325 mg DAILYWBKFT PO Last administered on 07/14/17 08:38; Start 07/02/17 at 09:00 Vitamin B Complex/ Vitamin C (Richelle-Harsha) 1 tab DAILY PO Last administered on 09:00; Start 07/02/17 at 09:00 Furosemide (Lasix) 80 mg BID92 PO Last administered on 07/14/17 08:39; Start 07/02/17 at 09:00 Albuterol/ Ipratropium (Duoneb) 3 ml TID NEB Last administered on 07/14/17 13 :03; Start 07/02/17 at 09:00 Lisinopril (Prinivil) 5 mg HS PO Last administered on 07/06/17 22:26; Start 07/02/17 at 21:00; Stop 07/07/17 at 13:59; Status DC Metoprolol Succinate (Toprol Xl) 25 mg DAILY PO Last administered on 08:40; Start 07/02/17 at 09:00 Sodium Bicarbonate (Sodium Bicarbonate) 650 mg TIDAC PO Last administered on 12:09; Start 07/02/17 at 11:30 Tamsulosin HCl (Flomax) 0.4 mg DAILY PO Last administered on 07/14/17 09:00; Start 07/02/17 at 09:00 Calcium Acetate (Phoslo) 667 mg TIDWMEALS PO Last administered on 07/14/17 12 :08; Start 07/02/17 at 12:00; Stop 07/14/17 at 12:21; Status DC Calcium Carbonate/ Glycine (Tums) 500 mg TIDWMEALS PO Last administered on 12:09; Start 07/02/17 at 12:00 Carvedilol (Coreg) 25 mg BIDWMEALS PO Last administered on 07/14/17 08:41; Start 07/02/17 at 17:00 Insulin Detemir (Levemir) 20 units QHS SQ Last administered on 07/13/17 21:34 ; Start 07/02/17 at 21:00 Potassium Chloride (Klor-Con) 20 meq BIDWMEALS PO Last administered on 09:14; Start 07/02/17 at 10:00; Stop 07/03/17 at 10:02; Status DC Atorvastatin Calcium (Lipitor) 5 mg QHS PO Last administered on 07/13/17 21: 22; Start 07/02/17 at 21:00 Non-Formulary Medication 400 mg BID PO ; Start 07/02/17 at 09:00; Stop 07/02/17 at 10:20; Status DC Zolpidem Tartrate (Ambien) 5 mg PRN QHS PRN PO INSOMNIA; Start 07/02/17 at 10: 15 Insulin Aspart (NovoLOG) 0-5 UNITS TIDWMEALS SQ Last administered on 07/02/17 17:22; Start 07/02/17 at 12:00; Stop 07/03/17 at 08:59; Status DC Dextrose (Dextrose 50%-Water Syringe) 12.5 gm PRN Q15MIN PRN IV SEE COMMENTS; Start 07/02/17 at 08:30; Stop 07/03/17 at 14:12; Status DC Clindamycin Phosphate 50 ml @ 100 mls/hr 1X ONCE IV ; Start 07/02/17 at 08:45 ; Stop 07/02/17 at 09:03; Status DC Propofol 20 ml @ As Directed STK-MED ONCE IV ; Start 07/02/17 at 08:44; Stop at 08:45; Status DC Lidocaine HCl (Lidocaine Pf 2% Vial) 5 ml STK-MED ONCE .ROUTE ; Start 07/02/17 at 08:44; Stop 07/02/17 at 08:45; Status DC Midazolam HCl (Versed) 2 mg STK-MED ONCE .ROUTE ; Start 07/02/17 at 08:45; Stop 07/02/17 at 08:46; Status DC Ephedrine Sulfate (Akovaz) 50 mg STK-MED ONCE .ROUTE ; Start 07/02/17 at 09:28; Stop 07/02/17 at 09:29; Status DC Phenylephrine HCl (Krunal-Synephrine Inj) 10 mg STK-MED ONCE .ROUTE ; Start at 09:37; Stop 07/02/17 at 09:38; Status DC Dexamethasone Sodium Phosphate (Decadron) 20 mg STK-MED ONCE .ROUTE ; Start 07/02/17 at 09:37; Stop 07/02/17 at 09:38; Status DC Ondansetron HCl (Zofran) 4 mg STK-MED ONCE .ROUTE ; Start 07/02/17 at 09:37; Stop 07/02/17 at 09:38; Status DC Sevoflurane (Ultane) 15 ml STK-MED ONCE IH ; Start 07/02/17 at 09:53; Stop 07/02 at 09:54; Status DC Zolpidem Tartrate (Ambien) 5 mg QHS PO Last administered on 07/13/17 21:22; Start 07/02/17 at 21:00 Acetaminophen (Tylenol) 650 mg PRN Q6HRS PRN PO FEVER Last administered on 21:02; Start 07/02/17 at 15:45 Ondansetron HCl (Zofran) 4 mg PRN Q6HRS PRN IV NAUSEA/VOMITING; Start 07/02/17 at 15:45 Morphine Sulfate 2 mg PRN Q2HR PRN IV PAIN Last administered on 07/14/17 05: 18; Start 07/02/17 at 15:45 Tramadol HCl (Ultram) 50 mg PRN Q6HRS PRN PO MILD PAIN Last administered on 12:44; Start 07/02/17 at 15:45 Hydralazine HCl (Apresoline Inj) 10 mg PRN Q4HRS PRN IVP ELEVATED BP, SEE COMMENTS; Start 07/02/17 at 15:45 Docusate Sodium (Colace) 100 mg PRN DAILY PRN PO CONSTIPATION; Start 07/02/17 at 15:45 Insulin Aspart (NovoLOG) 0-9 UNITS TIDWMEALS SQ Last administered on 16:58; Start 07/03/17 at 12:00 Dextrose (Dextrose 50%-Water Syringe) 12.5 gm PRN Q15MIN PRN IV SEE COMMENTS; Start 07/03/17 at 09:00 Magnesium Sulfate/ Dextrose 50 ml @ 25 mls/hr PRN DAILY PRN IV for Mag < 1.7 on am labs; Start 07/03/17 at 09:15 Clindamycin Phosphate (Cleocin 900mg Premix) 900 mg STK-MED ONCE IV ; Start 07/02/17 at 08:00; Stop 07/03/17 at 09:11; Status DC Insulin Aspart (NovoLOG) 5 units 1X ONCE SQ Last administered on 07/03/17 09: 46; Start 07/03/17 at 09:30; Stop 07/03/17 at 09:31; Status DC Potassium Chloride (Klor-Con) 20 meq BIDWMEALS PO Last administered on 16:37; Start 07/03/17 at 17:00 Ciprofloxacin/ Dextrose 200 ml @ 200 mls/hr DAILY IV ; Start 07/03/17 at 14:00 ; Stop 07/03/17 at 14:38; Status DC Ciprofloxacin/ Dextrose 200 ml @ 200 mls/hr Q18H IV ; Start 07/04/17 at 09:00 ; Stop 07/04/17 at 11:51; Status DC Ciprofloxacin/ Dextrose 200 ml @ 200 mls/hr 1X ONCE IV Last administered on 07/03/17 16:24; Start 07/03/17 at 15:30; Stop 07/04/17 at 11:51; Status DC Magnesium Sulfate/ Dextrose 50 ml @ 25 mls/hr 1X ONCE IV Last administered on 07/04/17 11:41; Start 07/04/17 at 10:30; Stop 07/04/17 at 12:29; Status DC Ertapenem 0.5 gm/ Sodium Chloride 50 ml @ 100 mls/hr DAILY08 IV ; Start at 08:00; Status UNV Meropenem (Merrem) 500 mg Q24H IVP Last administered on 07/11/17 13:22; Start 07/04/17 at 13:00; Stop 07/11/17 at 14:00; Status DC Darbepoetin Fredi (Aranesp) 100 mcg QSA@2100 SQ Last administered on 11/18/17at 21:49; Start 07/05/17 at 21:00; Stop 07/14/17 at 12:21; Status DC Lactobacillus Rhamnosus (Culturelle) 1 cap BID PO Last administered on 08:39; Start 07/06/17 at 21:00 Lisinopril (Prinivil) 10 mg QHS PO Last administered on 07/07/17 20:59; Start 07/07/17 at 21:00; Stop 07/08/17 at 14:45; Status DC Polyethylene Glycol (miraLAX PACKET) 17 gm PRN DAILY PRN PO CONSTIPATION Last administered on 07/07/17 21:15; Start 07/07/17 at 21:00 Lisinopril (Prinivil) 20 mg QHS PO Last administered on 07/13/17 21:23; Start 07/08/17 at 21:00 Ondansetron HCl (Zofran) 4 mg PRN Q6HRS PRN IV NAUSEA/VOMITING; Start at 07:00; Stop 07/10/17 at 06:59; Status DC Fentanyl Citrate (Fentanyl 2ml Vial) 25 mcg PRN Q5MIN PRN IV MILD PAIN; Start 07/09/17 at 07:00; Stop 07/10/17 at 06:59; Status DC Fentanyl Citrate (Fentanyl 2ml Vial) 50 mcg PRN Q5MIN PRN IV MODERATE PAIN; Start 07/09/17 at 07:00; Stop 07/10/17 at 06:59; Status DC Morphine Sulfate 1 mg PRN Q10MIN PRN IV SEVERE PAIN; Start 07/09/17 at 07:00; Stop 07/10/17 at 06:59; Status DC Ringer's Solution 1,000 ml @ 30 mls/hr Q24H IV ; Start 07/09/17 at 07:00; Stop 07/09/17 at 18:59; Status Cancel Lidocaine HCl (Xylocaine-Mpf 1% Vial) 2 ml PRN 1X PRN ID IV START; Start 07/09 at 07:00; Stop 07/10/17 at 06:59; Status DC Hydromorphone HCl (Dilaudid) 0.5 mg PRN Q10MIN PRN IV SEV PAIN, Second choice; Start 07/09/17 at 07:00; Stop 07/10/17 at 06:59; Status DC Prochlorperazine Edisylate (Compazine) 5 mg PACU PRN PRN IV NAUSEA, MRX1; Start 07/09/17 at 07:00; Stop 07/10/17 at 06:59; Status DC Ondansetron HCl (Zofran) 4 mg PRN Q6HRS PRN IV NAUSEA/VOMITING; Start at 07:00; Stop 07/11/17 at 06:59; Status DC Fentanyl Citrate (Fentanyl 2ml Vial) 25 mcg PRN Q5MIN PRN IV MILD PAIN; Start 07/10/17 at 07:00; Stop 07/11/17 at 06:59; Status DC Fentanyl Citrate (Fentanyl 2ml Vial) 50 mcg PRN Q5MIN PRN IV MODERATE PAIN Last administered on 07/10/17 14:54; Start 07/10/17 at 07:00; Stop 07/11/17 at 06:59; Status DC Morphine Sulfate 1 mg PRN Q10MIN PRN IV SEVERE PAIN Last administered on 15:05; Start 07/10/17 at 07:00; Stop 07/11/17 at 06:59; Status DC Ringer's Solution 1,000 ml @ 30 mls/hr Q24H IV ; Start 07/10/17 at 07:00; Stop 07/10/17 at 18:59; Status DC Lidocaine HCl (Xylocaine-Mpf 1% Vial) 2 ml PRN 1X PRN ID IV START; Start 07/10 at 07:00; Stop 07/11/17 at 06:59; Status DC Hydromorphone HCl (Dilaudid) 0.5 mg PRN Q10MIN PRN IV SEV PAIN, Second choice Last administered on 07/10/17 15:58; Start 07/10/17 at 07:00; Stop 07/11/17 at 06:59; Status DC Prochlorperazine Edisylate (Compazine) 5 mg PACU PRN PRN IV NAUSEA, MRX1 Last administered on 07/10/17 15:35; Start 07/10/17 at 07:00; Stop 07/11/17 at 06 :59; Status DC Sevoflurane (Ultane) 60 ml STK-MED ONCE IH ; Start 07/10/17 at 11:08; Stop at 11:09; Status DC Fentanyl Citrate (Fentanyl 2ml Vial) 100 mcg STK-MED ONCE .ROUTE ; Start at 11:11; Stop 07/10/17 at 11:12; Status DC Propofol 0 ml @ As Directed STK-MED ONCE IV ; Start 07/10/17 at 11:11; Stop at 11:12; Status DC Lidocaine HCl (Lidocaine Pf 2% Vial) 5 ml STK-MED ONCE .ROUTE ; Start 07/10/17 at 11:11; Stop 07/10/17 at 11:12; Status DC Dexamethasone Sodium Phosphate (Decadron) 20 mg STK-MED ONCE .ROUTE ; Start at 11:11; Stop 07/10/17 at 11:12; Status DC Ondansetron HCl (Zofran) 4 mg STK-MED ONCE .ROUTE ; Start 07/10/17 at 11:11; Stop 07/10/17 at 11:12; Status DC Etomidate (Amidate) 20 mg STK-MED ONCE IV ; Start 07/10/17 at 11:48; Stop at 11:49; Status DC Ephedrine Sulfate (Akovaz) 50 mg STK-MED ONCE .ROUTE ; Start 07/10/17 at 12:52 ; Stop 07/10/17 at 12:53; Status DC Hydralazine HCl (Apresoline Inj) 20 mg STK-MED ONCE .ROUTE ; Start 07/10/17 at 13:16; Stop 07/10/17 at 13:17; Status DC Fentanyl Citrate (Fentanyl 2ml Vial) 100 mcg STK-MED ONCE .ROUTE ; Start at 13:17; Stop 07/10/17 at 13:18; Status DC Acetaminophen/ Hydrocodone Bitart (Lortab 7.5/325) 1 tab PRN Q4HRS PRN PO PAIN Last administered on 07/13/17t 13:26; Start 07/11/17 at 08:15 Info (PHARMACY MONITORING -- do not chart) 1 each PRN DAILY PRN MC SEE COMMENTS ; Start 07/13/17 at 15:00 Magnesium Sulfate/ Dextrose 50 ml @ 25 mls/hr PRN DAILY PRN IV for Mag < 1.7 on am labs; Start 07/13/17 at 15:15 Gabapentin (Neurontin) 300 mg 1X ONCE PO Last administered on 07/13/17t 17:01 ; Start 07/13/17 at 17:00; Stop 07/13/17 at 17:01; Status DC Acetaminophen/ Hydrocodone Bitart (Lortab 10/325) 1 tab PRN Q4HRS PRN PO PAIN Last administered on 07/14/17t 12:11; Start 07/14/17 at 11:30 Calcium Acetate (Phoslo) 2,001 mg TIDWMEALS PO ; Start 07/14/17 at 17:00 Darbepoetin Fredi (Aranesp) 100 mcg QSA@2100 SQ ; Start 07/19/17 at 21:00 Darbepoetin Fredi (Aranesp) 100 mcg QSA@2100 SQ ; Start 07/19/17 at 21:00 Active Scripts Active Reported Carvedilol 25 Mg Tablet 1 Tab PO BID Coq-10 (Ubidecarenone) 100 Mg Capsule 400 Mg PO BID Krill Oil 500 mg Softgel (Krill/Om-3/Dha/Epa/Phospho/Ast) 1 Each Capsule 1 Each PO DAILY Vitamin D3 (Cholecalciferol (Vitamin D3)) 1,000 Unit Tablet 1 Tab PO DAILY Potassium Chloride 20 Meq Tablet.er 20 Meq PO BID Metoprolol Succinate ( Xl ) (Metoprolol Succinate) 25 Mg Tab.er.24h 1 Tab PO DAILY Calcium Acetate 667 Mg Tablet 1,334 Mg PO TIDWMEALS Ambien (Zolpidem Tartrate) 10 Mg Tablet 1 Tab PO QHS Humalog (Insulin Lispro) 100 Unit/1 Ml Cartridge 0 SQ Doxazosin Mesylate 4 Mg Tablet 4 Mg PO HS Nephro-Harsha Tablet (Folic Acid/Vitamin B Comp W-C) 0.8 Mg Tablet 1 Tab PO DAILY Aspir 81 (Aspirin) 81 Mg Tablet.dr 1 Tab PO DAILY Furosemide 80 Mg Tablet 80 Mg PO BID Sodium Bicarbonate 650 Mg Tablet 1 Tab PO TIDAC Artificial Tears Eye Drops (Dextran 70/Hypromellose) 15 Ml Drops 1 Drop EACHEYE BID Pravastatin Sodium 10 Mg Tablet 1 Tab PO QHS Tamsulosin Hcl 0.4 Mg Cap.er.24h 1 Cap PO DAILY Docusate Sodium 100 Mg Capsule 200 Mg PO DAILY Aranesp Syringe (Darbepoetin Fredi In Polysorbat) 60 Mcg/0.3 Ml Disp.syrin 60 Mcg SQ WEEKLY Ferrous Sulfate 325 Mg Tablet 1 Tab PO DAILY Duoneb 0.5-3(2.5) Mg/3 Ml (Albuterol/Ipratropium) 3 Ml Ampul.neb 3 Ml NEB TID Tums Ultra (Calcium Carbonate) 400 Mg Tab.chew 500 Mg PO TID Allopurinol 100 Mg Tablet 1 Tab PO DAILY Clonidine Hcl 0.2 Mg Tablet 1 Tab PO PRN TAKES ONLY IF HIS BLOOD PRESSURE IS ELEVATED Lisinopril 5 Mg Tablet 1 Tab PO HS Levemir (Insulin Detemir) 100 Unit/1 Ml Vial 20 Unit SQ HS Vitals/I & O Vital Sign - Last 24 Hours 07/13/17 07/13/17 07/13/17 07/13/17 13:24 13:26 14:30 15:00 Temp 98.1 98.1 Pulse 85 Resp 18 B/P (MAP) 171/47 (88) Pulse Ox 95 95 96 O2 Delivery Room Air Room Air Room Air Room Air 07/13/17 07/13/17 07/13/17 07/13/17 15:45 16:44 16:45 17:15 Temp 97.8 97.8 Pulse 79 79 B/P (MAP) 152/68 (96) 152/68 Pulse Ox 95 95 O2 Delivery Room Air Room Air 07/13/17 07/13/17 07/13/17 07/13/17 19:00 19:40 20:52 21:23 Temp 95.4 95.4 Pulse 83 79 Resp 18 B/P (MAP) 121/32 (61) 152/68 Pulse Ox 92 95 O2 Delivery Room Air Room Air Room Air 07/13/17 07/13/17 07/13/17 07/14/17 21:24 21:24 23:00 03:00 Temp 96.2 96.1 96.2 96.1 Pulse 79 79 80 80 Resp 18 18 B/P (MAP) 152/68 152/68 143/41 (75) 125/35 (65) Pulse Ox 90 94 O2 Delivery Room Air Room Air 07/14/17 07/14/17 07/14/17 07/14/17 05:18 05:48 07:00 07:16 Temp 97.6 97.6 Pulse 82 Resp 18 18 20 B/P (MAP) 156/50 (85) Pulse Ox 92 92 O2 Delivery Room Air Room Air Room Air Room Air 07/14/17 07/14/17 07/14/17 07/14/17 07:35 08:40 08:41 08:46 Pulse 82 82 82 B/P (MAP) 156/50 156/50 156/50 O2 Delivery Room Air 07/14/17 07/14/17 07/14/17 11:00 12:11 13:04 Temp 98.7 98.7 Pulse 77 Resp 18 B/P (MAP) 128/77 (94) Pulse Ox 94 94 O2 Delivery Room Air Room Air Room Air Intake and Output 07/13/17 07/13/17 07/14/17 15:00 23:00 07:00 Intake Total 860 ml 240 ml Output Total 260 ml 275 ml Balance 600 ml -35 ml DAVONTE LIZARRAGA III, DO Jul 14, 2017 13:23
--- NOTE | 2017-07-14 15:11 | PATHOLOGY ---
PATHOLOGY REPORT * * * * * * * * FINAL DIAGNOSIS: Left lower leg and foot, left below the knee amputation: - Status-post left forefoot amputation, with ulceration, necrosis, and acute cellulitis of amputation site and focal acute osteomyelitis. - Arterial calcific atherosclerosis of lower leg. (JPM:mgr; 07/14/2017) REPORT ELECTRONICALLY SIGNED BY: Bakari Pino M.D. 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 Extending above the skin resection margin is a segment of tibia 3.0 cm in length by 3.5 x 2.5 and fibula 2.5 cm in length by 1.5 x 1.5 cm. The skin, underlying soft tissue and bone resection margins appear viable. The vascular resection margin shows intimal thickening/possible calcifications. The previous amputation site measures 10.0 x 2.8 cm and shows black to funez-white necrotic soft tissue with possible extension to the underling bone. The vasculature shows intimal thickening/possible calcifications. The skin is hodges-white and grossly unremarkable. [employer] sections submitted as follows: A1 skin, soft tissue and vascular resection margin A2 bone resection margin (blue ink is fibula) after decalcification A3 previous amputation site A4 bone underlying previous amputation site after decalcification A5 vasculature (SWS; 07/10/2017) INITIAL CPT CODE(S): 74424, 83220 Professional services performed by [facility] at [address] [address] Technical services performed by [facility] at [address] [place] [address], [address] [address]. SPECIMEN(S) RECEIVED: A.Left lower leg CLINICAL HISTORY: Right foot wound dishence PATIENT: AMALIA FARRIS /AGE: 4 1955 (Age: 61) PATIENT #: [id number] ALT CASE #: SPECIMEN COLLECTION DATE: 07/10/2017 SPECIMEN RECEIVED DATE: 07/10/2017 [facility] - [id number] [address] - PHONE: [phone] * * * END OF REPORT * * *
[2017-07-14] MEDS: DOXAZOSIN MESYLATE 4 MG TABLET. PO SCH (21:00)
[2017-07-14] MEDS: ZOLPIDEM 5 MG TABLET. PO SCH (21:00)
[2017-07-14] MEDS: ATORVASTATIN CALCIUM 10 MG TABLET. PO SCH (22:16)
[2017-07-14] MEDS: LISINOPRIL 20 MG TABLET PO SCH (22:17)
[2017-07-14] MEDS: INSULIN DETEMIR 300 UNITS/3 ML INSULN.PEN. SQ SCH (22:21)
[2017-07-15] VITALS (8 sets, daily range): BP systolic 111–158; BP diastolic 34–51
[2017-07-15 05:50] LABS: CREATININE 7.4 mg/dL (0.7-1.3); GFR 7.5; PHOSPHORUS 8.5 mg/dL (2.6-4.7); POTASSIUM 4.4 mmol/L (3.5-5.1)
[2017-07-15] MEDS: IPRATRPIUM/ALBUTEROL 0.5/2.5MG 3 ML NEBU. NEB SCH ×3 (07:19→21:00)
[2017-07-15] MEDS: POTASSIUM CHLORIDE 20 MEQ TABLET.ER. PO SCH ×2 (08:00→14:21)
[2017-07-15] MEDS: INSULIN ASPART 300 UNITS/3 ML INSULN.PEN SQ SCH ×3 (08:00→17:00)
[2017-07-15] MEDS: HYDROcodone/APAP 10/325 1 TAB TABLET PO PRN (08:33)
[2017-07-15] MEDS: FOLIC/VIT B COMP W-C (RENAL) TABLET. PO SCH (08:33)
[2017-07-15] MEDS: FERROUS SULFATE 325 MG TABLET. PO SCH (08:34)
[2017-07-15] MEDS: SENNOSIDES/DOCUSATE 8.6/50MG TABLET. PO SCH ×2 (08:34→20:35)
[2017-07-15] MEDS: DOCUSATE SODIUM 100 MG CAPSULE. PO SCH (08:34)
[2017-07-15] MEDS: CALCIUM ACETATE 667 MG CAPSULE PO SCH ×3 (08:34→17:38)
[2017-07-15] MEDS: ALLOPURINOL 100 MG TABLET. PO SCH (08:34)
[2017-07-15] MEDS: ASPIRIN ENTERIC COATED 81 MG TABLET.DR. PO SCH (08:34)
[2017-07-15] MEDS: FUROSEMIDE 80 MG TABLET. PO SCH ×2 (08:34→17:38)
[2017-07-15] MEDS: LACTOBACILLUS RHAMNOSUS GG 1 CAPSULE. PO SCH ×2 (08:34→20:33)
[2017-07-15] MEDS: CHOLECALCIFEROL (VITAMIN D3) 1,000 UNIT TABLET PO SCH (08:34)
[2017-07-15] MEDS: SODIUM BICARBONATE 650 MG TABLET. PO SCH ×3 (08:34→17:38)
[2017-07-15] MEDS: CALCIUM CARBONATE 500 MG TAB.CHEW PO SCH ×3 (08:45→17:38)
[2017-07-15] MEDS: TAMSULOSIN 0.4 MG CAP.ER.24H. PO SCH (08:45)
[2017-07-15] MEDS: METOPROLOL SUCC 24HR ER 25 MG TAB.ER.24H. PO SCH (08:47)
[2017-07-15] MEDS: CARVEDILOL 12.5 MG TABLET. PO SCH ×2 (08:47→17:43)
[2017-07-15] MEDS: cloNIDine HCL 0.2 MG TABLET PO SCH ×2 (08:47→20:33)
--- NOTE | 2017-07-15 09:37 | PDOC ---
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 He is having some phantom pains as well. He and his also voiced their concern about how drowsy gets with pain medicine. Vitals Vital Signs Date Time Temp Pulse Resp B/P (MAP) Pulse Ox O2 Delivery O2 Flow Rate FiO2 07/15/17 08:47 84 111/51 07/15/17 08:33 16 Room Air 07/15/17 07:20 94 07/15/17 07:00 97.6 97.6 07/14/17 14:05 94.0 Labs Laboratory Tests Test 07/13/17 11:25 07/13/17 16:10 07/13/17 20:59 07/14/17 06:21 Glucose (Fingerstick) 196 mg/dL (70-99) 159 mg/dL (70-99) 158 mg/dL (70-99) Hemoglobin 7.8 g/dL (13.0-17.5) Sodium Level 134 mmol/L (136-145) Potassium Level 4.5 mmol/L (3.5-5.1) Chloride Level 96 mmol/L (98-107) Carbon Dioxide Level 30 mmol/L (21-32) Anion Gap 8 (6-14) Blood Urea Nitrogen 90 mg/dL (8-26) Creatinine 6.9 mg/dL (0.7-1.3) Estimated GFR (Cockcroft-Gault) 8.2 Glucose Level 84 mg/dL (70-99) Calcium Level 8.1 mg/dL (8.5-10.1) Phosphorus Level 7.7 mg/dL (2.6-4.7) Magnesium Level 2.1 mg/dL (1.8-2.4) Albumin 2.1 g/dL (3.4-5.0) Test 07/14/17 07:55 07/14/17 11:03 07/14/17 16:41 07/14/17 21:44 Glucose (Fingerstick) 130 mg/dL (70-99) 138 mg/dL (70-99) 167 mg/dL (70-99) 129 mg/dL (70-99) Test 07/15/17 05:00 07/15/17 07:58 Sodium Level 134 mmol/L (136-145) Potassium Level 4.4 mmol/L (3.5-5.1) Chloride Level 95 mmol/L (98-107) Carbon Dioxide Level 31 mmol/L (21-32) Anion Gap 8 (6-14) Blood Urea Nitrogen 95 mg/dL (8-26) Creatinine 7.4 mg/dL (0.7-1.3) Estimated GFR (Cockcroft-Gault) 7.5 Glucose Level 82 mg/dL (70-99) Calcium Level 8.0 mg/dL (8.5-10.1) Phosphorus Level 8.5 mg/dL (2.6-4.7) Magnesium Level 2.1 mg/dL (1.8-2.4) Albumin 2.0 g/dL (3.4-5.0) Glucose (Fingerstick) 77 mg/dL (70-99) Laboratory Tests Test 07/14/17 11:03 07/14/17 16:41 07/14/17 21:44 07/15/17 05:00 Glucose (Fingerstick) 138 mg/dL (70-99) 167 mg/dL (70-99) 129 mg/dL (70-99) Sodium Level 134 mmol/L (136-145) Potassium Level 4.4 mmol/L (3.5-5.1) Chloride Level 95 mmol/L (98-107) Carbon Dioxide Level 31 mmol/L (21-32) Anion Gap 8 (6-14) Blood Urea Nitrogen 95 mg/dL (8-26) Creatinine 7.4 mg/dL (0.7-1.3) Estimated GFR (Cockcroft-Gault) 7.5 Glucose Level 82 mg/dL (70-99) Calcium Level 8.0 mg/dL (8.5-10.1) Phosphorus Level 8.5 mg/dL (2.6-4.7) Magnesium Level 2.1 mg/dL (1.8-2.4) Albumin 2.0 g/dL (3.4-5.0) Test 07/15/17 07:58 Glucose (Fingerstick) 77 mg/dL (70-99) Notes He is awake and alert, lying in bed. 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 Assessment and Plan We will try adjusting his pain regimen and adding tramadol. I did discuss with the patient and family that any pain medicine that may be very effective also runs a risk of making him quite drowsy. Hopefully we can get his pain under better control so he can be transferred JOSELITO PONCE II, MD Jul 15, 2017 09:37
--- NOTE | 2017-07-15 11:48 | PDOC ---
Dialysis Progress Note Dialysis Note Dialysis Note Seen on CAPD, tolerating treatment Well Vitals as documented General Appearance: Awake: Alert Oriented x 3 Neck: No JVD or JVP Chest: CTA Stanislaw Heart: S1 S2 Abdomen - Soft NTND Extremities - No Edema ESRD: ct same CAPD as orderd Binders increased Vitals Vital Signs Vital Signs Date Time Temp Pulse Resp B/P (MAP) Pulse Ox O2 Delivery O2 Flow Rate FiO2 07/15/17 08:47 84 111/51 07/15/17 08:33 16 Room Air 07/15/17 07:20 94 07/15/17 07:00 97.6 97.6 07/14/17 14:05 94.0 Labs Last Labs Laboratory Tests Test 07/13/17 16:10 07/13/17 20:59 07/14/17 06:21 07/14/17 07:55 Glucose (Fingerstick) 159 mg/dL (70-99) 158 mg/dL (70-99) 130 mg/dL (70-99) Hemoglobin 7.8 g/dL (13.0-17.5) Sodium Level 134 mmol/L (136-145) Potassium Level 4.5 mmol/L (3.5-5.1) Chloride Level 96 mmol/L (98-107) Carbon Dioxide Level 30 mmol/L (21-32) Anion Gap 8 (6-14) Blood Urea Nitrogen 90 mg/dL (8-26) Creatinine 6.9 mg/dL (0.7-1.3) Estimated GFR (Cockcroft-Gault) 8.2 Glucose Level 84 mg/dL (70-99) Calcium Level 8.1 mg/dL (8.5-10.1) Phosphorus Level 7.7 mg/dL (2.6-4.7) Magnesium Level 2.1 mg/dL (1.8-2.4) Albumin 2.1 g/dL (3.4-5.0) Test 07/14/17 11:03 07/14/17 16:41 07/14/17 21:44 07/15/17 05:00 Glucose (Fingerstick) 138 mg/dL (70-99) 167 mg/dL (70-99) 129 mg/dL (70-99) Sodium Level 134 mmol/L (136-145) Potassium Level 4.4 mmol/L (3.5-5.1) Chloride Level 95 mmol/L (98-107) Carbon Dioxide Level 31 mmol/L (21-32) Anion Gap 8 (6-14) Blood Urea Nitrogen 95 mg/dL (8-26) Creatinine 7.4 mg/dL (0.7-1.3) Estimated GFR (Cockcroft-Gault) 7.5 Glucose Level 82 mg/dL (70-99) Calcium Level 8.0 mg/dL (8.5-10.1) Phosphorus Level 8.5 mg/dL (2.6-4.7) Magnesium Level 2.1 mg/dL (1.8-2.4) Albumin 2.0 g/dL (3.4-5.0) Test 07/15/17 07:58 07/15/17 11:23 Glucose (Fingerstick) 77 mg/dL (70-99) 168 mg/dL (70-99) Laboratory Tests Test 07/14/17 16:41 07/14/17 21:44 07/15/17 05:00 07/15/17 07:58 Glucose (Fingerstick) 167 mg/dL (70-99) 129 mg/dL (70-99) 77 mg/dL (70-99) Sodium Level 134 mmol/L (136-145) Potassium Level 4.4 mmol/L (3.5-5.1) Chloride Level 95 mmol/L (98-107) Carbon Dioxide Level 31 mmol/L (21-32) Anion Gap 8 (6-14) Blood Urea Nitrogen 95 mg/dL (8-26) Creatinine 7.4 mg/dL (0.7-1.3) Estimated GFR (Cockcroft-Gault) 7.5 Glucose Level 82 mg/dL (70-99) Calcium Level 8.0 mg/dL (8.5-10.1) Phosphorus Level 8.5 mg/dL (2.6-4.7) Magnesium Level 2.1 mg/dL (1.8-2.4) Albumin 2.0 g/dL (3.4-5.0) Test 07/15/17 11:23 Glucose (Fingerstick) 168 mg/dL (70-99) MIREYA HART MD Jul 15, 2017 11:48
--- NOTE | 2017-07-15 13:10 | PDOC ---
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 recent left toes osteo post toes amputation with wound dehiscence recent Recurrent UGIB, s/p EGD, with gastric ulcer post clip and epi injection recent acute on chronic resp failure, post intubation, trach removed ESRD previous on PD,on short term of HD, back to PD now recent CAD with 3rd degree AVB with PPM/ICD DM2 ON insulin dysphagia resolved morbid obesity, BMI 32.5 acute on chronic anemia, esrd, gib h/o thrombocytopenia moderate malnutrition History of Present Illness History of Present Illness Peritoneal Dialysis in progress upon entering room Spoke with Pt and concerning dialysis process Lft leg with [place]. Pt is also on peritoneal dialysis and has a PICC line. PLAN transfer to ACUTE rehab, [facility] pending Vitals Vitals Vital Signs Date Time Temp Pulse Resp B/P (MAP) Pulse Ox O2 Delivery O2 Flow Rate FiO2 07/15/17 12:11 Room Air 07/15/17 11:00 97.9 81 18 119/42 (67) 94 97.9 07/15/17 09:33 2.0 Physical Exam General: Alert, Oriented X3, Cooperative, No acute distress Heart: Regular rate, Normal S1, Normal S2, No murmurs Lungs: Clear, Other (No wheezes, rhonchi, rales) Extremities: No clubbing, No cyanosis, No edema Skin: No significant lesion Labs LABS Laboratory Tests Test 07/14/17 16:41 07/14/17 21:44 07/15/17 05:00 07/15/17 07:58 Glucose (Fingerstick) 167 mg/dL (70-99) 129 mg/dL (70-99) 77 mg/dL (70-99) Sodium Level 134 mmol/L (136-145) Potassium Level 4.4 mmol/L (3.5-5.1) Chloride Level 95 mmol/L (98-107) Carbon Dioxide Level 31 mmol/L (21-32) Anion Gap 8 (6-14) Blood Urea Nitrogen 95 mg/dL (8-26) Creatinine 7.4 mg/dL (0.7-1.3) Estimated GFR (Cockcroft-Gault) 7.5 Glucose Level 82 mg/dL (70-99) Calcium Level 8.0 mg/dL (8.5-10.1) Phosphorus Level 8.5 mg/dL (2.6-4.7) Magnesium Level 2.1 mg/dL (1.8-2.4) Albumin 2.0 g/dL (3.4-5.0) Test 07/15/17 11:23 Glucose (Fingerstick) 168 mg/dL (70-99) Review of Systems Review of Systems General: No Fever, Chills, Night Sweats CV: No Chest Pain, Palpitations Assessment and Plan Assessmemt and Plan Assessment: Left foot midfoot amputation with wound dehiscence post i and d on 07/02, cx + KPNA ESBL/MDR, amputation 07/09, 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/10 Left foot gangree,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 Labs Laboratory Tests Test 07/13/17 16:10 07/13/17 20:59 07/14/17 06:21 07/14/17 07:55 Glucose (Fingerstick) 159 mg/dL (70-99) 158 mg/dL (70-99) 130 mg/dL (70-99) Hemoglobin 7.8 g/dL (13.0-17.5) Sodium Level 134 mmol/L (136-145) Potassium Level 4.5 mmol/L (3.5-5.1) Chloride Level 96 mmol/L (98-107) Carbon Dioxide Level 30 mmol/L (21-32) Anion Gap 8 (6-14) Blood Urea Nitrogen 90 mg/dL (8-26) Creatinine 6.9 mg/dL (0.7-1.3) Estimated GFR (Cockcroft-Gault) 8.2 Glucose Level 84 mg/dL (70-99) Calcium Level 8.1 mg/dL (8.5-10.1) Phosphorus Level 7.7 mg/dL (2.6-4.7) Magnesium Level 2.1 mg/dL (1.8-2.4) Albumin 2.1 g/dL (3.4-5.0) Test 07/14/17 11:03 07/14/17 16:41 07/14/17 21:44 07/15/17 05:00 Glucose (Fingerstick) 138 mg/dL (70-99) 167 mg/dL (70-99) 129 mg/dL (70-99) Sodium Level 134 mmol/L (136-145) Potassium Level 4.4 mmol/L (3.5-5.1) Chloride Level 95 mmol/L (98-107) Carbon Dioxide Level 31 mmol/L (21-32) Anion Gap 8 (6-14) Blood Urea Nitrogen 95 mg/dL (8-26) Creatinine 7.4 mg/dL (0.7-1.3) Estimated GFR (Cockcroft-Gault) 7.5 Glucose Level 82 mg/dL (70-99) Calcium Level 8.0 mg/dL (8.5-10.1) Phosphorus Level 8.5 mg/dL (2.6-4.7) Magnesium Level 2.1 mg/dL (1.8-2.4) Albumin 2.0 g/dL (3.4-5.0) Test 07/15/17 07:58 07/15/17 11:23 Glucose (Fingerstick) 77 mg/dL (70-99) 168 mg/dL (70-99) Laboratory Tests Test 07/14/17 16:41 07/14/17 21:44 07/15/17 05:00 07/15/17 07:58 Glucose (Fingerstick) 167 mg/dL (70-99) 129 mg/dL (70-99) 77 mg/dL (70-99) Sodium Level 134 mmol/L (136-145) Potassium Level 4.4 mmol/L (3.5-5.1) Chloride Level 95 mmol/L (98-107) Carbon Dioxide Level 31 mmol/L (21-32) Anion Gap 8 (6-14) Blood Urea Nitrogen 95 mg/dL (8-26) Creatinine 7.4 mg/dL (0.7-1.3) Estimated GFR (Cockcroft-Gault) 7.5 Glucose Level 82 mg/dL (70-99) Calcium Level 8.0 mg/dL (8.5-10.1) Phosphorus Level 8.5 mg/dL (2.6-4.7) Magnesium Level 2.1 mg/dL (1.8-2.4) Albumin 2.0 g/dL (3.4-5.0) Test 07/15/17 11:23 Glucose (Fingerstick) 168 mg/dL (70-99) Microbiology 07/02/17 Anaerobic/Aerobic Culture - Final, Complete 07/02/17 Anaerobic Culture Result 1 (BELKIS) - Final, Complete 07/02/17 Aerobic Culture - Final, Complete 07/02/17 Aerobic Culture Result 1 (BELKIS) - Final, Complete Medications Current Medications Ondansetron HCl (Zofran) 4 mg PRN Q6HRS PRN IV NAUSEA/VOMITING; Start 07/02/17 at 07:00; Stop 07/03/17 at 06:59; Status DC Fentanyl Citrate (Fentanyl 2ml Vial) 25 mcg PRN Q5MIN PRN IV MILD PAIN; Start 07/02/17 at 07:00; Stop 07/03/17 at 06:59; Status DC Fentanyl Citrate (Fentanyl 2ml Vial) 50 mcg PRN Q5MIN PRN IV MODERATE PAIN; Start 07/02/17 at 07:00; Stop 07/03/17 at 06:59; Status DC Morphine Sulfate 1 mg PRN Q10MIN PRN IV SEVERE PAIN; Start 07/02/17 at 07:00; Stop 07/03/17 at 06:59; Status DC Ringer's Solution 1,000 ml @ 30 mls/hr Q24H IV ; Start 07/02/17 at 07:00; Stop 07/02/17 at 18:59; Status DC Lidocaine HCl (Xylocaine-Mpf 1% Vial) 2 ml PRN 1X PRN ID IV START; Start at 07:00; Stop 07/03/17 at 06:59; Status DC Hydromorphone HCl (Dilaudid) 0.5 mg PRN Q10MIN PRN IV SEV PAIN, Second choice; Start 07/02/17 at 07:00; Stop 07/03/17 at 06:59; Status DC Prochlorperazine Edisylate (Compazine) 5 mg PACU PRN PRN IV NAUSEA, MRX1; Start 07/02/17 at 07:00; Stop 07/03/17 at 06:59; Status DC Lidocaine HCl 30 ml STK-MED ONCE .ROUTE ; Start 07/02/17 at 07:13; Stop at 07:14; Status DC Bupivacaine HCl (Sensorcaine Mpf 0.5%) 30 ml STK-MED ONCE .ROUTE ; Start at 07:13; Stop 07/02/17 at 07:14; Status DC Clindamycin Phosphate 50 ml @ As Directed STK-MED ONCE IV ; Start 07/02/17 at 08 :19; Stop 07/02/17 at 08:20; Status DC Al Hydroxide/Mg Hydroxide (Mylanta Plus Xs) 30 ml PRN Q3HRS PRN PO HEARTBURN / GAS; Start 07/02/17 at 08:30 Oxycodone HCl (Roxicodone) 5 mg PRN Q3HRS PRN PO BREAKTHROUGH PAIN; Start 07/02 at 08:30 Morphine Sulfate 1 mg PRN Q1HR PRN IV PAIN; Start 07/02/17 at 08:30; Stop at 11:35; Status DC Acetaminophen/ Hydrocodone Bitart (Lortab 5/325) 1 tab PRN Q4HRS PRN PO MODERATE - SEVERE PAIN Last administered on 07/10/17 01:55; Start 07/02/17 at 08:30 Senna/Docusate Sodium (Senna Plus) 1 tab BID PO Last administered on 08:34; Start 07/02/17 at 10:00 Magnesium Hydroxide (Milk Of Magnesia) 2,400 mg PRN Q12HR PRN PO CONSTIPATION; Start 07/02/17 at 08:30 Sodium Chloride 1,000 ml @ 100 mls/hr Q10H IV Last administered on 07/02/17 08:51; Start 07/02/17 at 08:30; Stop 07/03/17 at 10:02; Status DC Allopurinol (Zyloprim) 100 mg DAILY PO Last administered on 07/15/17 08:34; Start 07/02/17 at 09:00 Aspirin (Ecotrin) 81 mg DAILY PO Last administered on 07/15/17 08:34; Start 07/02/17 at 09:00 Vitamin D (Vitamin D3) 1,000 unit DAILY PO Last administered on 07/15/17 08: 34; Start 07/02/17 at 09:00 Clonidine HCl (Catapres) 0.2 mg BID PO Last administered on 07/15/17 08:47; Start 07/02/17 at 09:00 Darbepoetin Fredi (Aranesp) 60 mcg Sa SQ ; Start 07/05/17 at 21:00; Stop at 21:00; Status DC Docusate Sodium (Colace) 200 mg DAILY PO Last administered on 07/15/17 08:34 ; Start 07/02/17 at 10:00 Doxazosin Mesylate (Cardura) 4 mg HS PO Last administered on 07/13/17 21:24; Start 07/02/17 at 21:00 Ferrous Sulfate (Feosol) 325 mg DAILYWBKFT PO Last administered on 07/15/17 08:34; Start 07/02/17 at 09:00 Vitamin B Complex/ Vitamin C (Richelle-Harsha) 1 tab DAILY PO Last administered on 08:33; Start 07/02/17 at 09:00 Furosemide (Lasix) 80 mg BID92 PO Last administered on 07/15/17 08:34; Start 07/02/17 at 09:00 Albuterol/ Ipratropium (Duoneb) 3 ml TID NEB Last administered on 07/15/17 12 :10; Start 07/02/17 at 09:00 Lisinopril (Prinivil) 5 mg HS PO Last administered on 07/06/17 22:26; Start 07/02/17 at 21:00; Stop 07/07/17 at 13:59; Status DC Metoprolol Succinate (Toprol Xl) 25 mg DAILY PO Last administered on 08:47; Start 07/02/17 at 09:00 Sodium Bicarbonate (Sodium Bicarbonate) 650 mg TIDAC PO Last administered on 11:47; Start 07/02/17 at 11:30 Tamsulosin HCl (Flomax) 0.4 mg DAILY PO Last administered on 07/15/17 08:45; Start 07/02/17 at 09:00 Calcium Acetate (Phoslo) 667 mg TIDWMEALS PO Last administered on 07/14/17 12 :08; Start 07/02/17 at 12:00; Stop 07/14/17 at 12:21; Status DC Calcium Carbonate/ Glycine (Tums) 500 mg TIDWMEALS PO Last administered on 11:46; Start 07/02/17 at 12:00 Carvedilol (Coreg) 25 mg BIDWMEALS PO Last administered on 07/15/17 08:47; Start 07/02/17 at 17:00 Insulin Detemir (Levemir) 20 units QHS SQ Last administered on 07/14/17 22:21 ; Start 07/02/17 at 21:00 Potassium Chloride (Klor-Con) 20 meq BIDWMEALS PO Last administered on 09:14; Start 07/02/17 at 10:00; Stop 07/03/17 at 10:02; Status DC Atorvastatin Calcium (Lipitor) 5 mg QHS PO Last administered on 07/14/17 22: 16; Start 07/02/17 at 21:00 Non-Formulary Medication 400 mg BID PO ; Start 07/02/17 at 09:00; Stop 07/02/17 at 10:20; Status DC Zolpidem Tartrate (Ambien) 5 mg PRN QHS PRN PO INSOMNIA; Start 07/02/17 at 10: 15 Insulin Aspart (NovoLOG) 0-5 UNITS TIDWMEALS SQ Last administered on 07/02/17 17:22; Start 07/02/17 at 12:00; Stop 07/03/17 at 08:59; Status DC Dextrose (Dextrose 50%-Water Syringe) 12.5 gm PRN Q15MIN PRN IV SEE COMMENTS; Start 07/02/17 at 08:30; Stop 07/03/17 at 14:12; Status DC Clindamycin Phosphate 50 ml @ 100 mls/hr 1X ONCE IV ; Start 07/02/17 at 08:45 ; Stop 07/02/17 at 09:03; Status DC Propofol 20 ml @ As Directed STK-MED ONCE IV ; Start 07/02/17 at 08:44; Stop at 08:45; Status DC Lidocaine HCl (Lidocaine Pf 2% Vial) 5 ml STK-MED ONCE .ROUTE ; Start 07/02/17 at 08:44; Stop 07/02/17 at 08:45; Status DC Midazolam HCl (Versed) 2 mg STK-MED ONCE .ROUTE ; Start 07/02/17 at 08:45; Stop 07/02/17 at 08:46; Status DC Ephedrine Sulfate (Akovaz) 50 mg STK-MED ONCE .ROUTE ; Start 07/02/17 at 09:28; Stop 07/02/17 at 09:29; Status DC Phenylephrine HCl (Krunal-Synephrine Inj) 10 mg STK-MED ONCE .ROUTE ; Start at 09:37; Stop 07/02/17 at 09:38; Status DC Dexamethasone Sodium Phosphate (Decadron) 20 mg STK-MED ONCE .ROUTE ; Start 07/02/17 at 09:37; Stop 07/02/17 at 09:38; Status DC Ondansetron HCl (Zofran) 4 mg STK-MED ONCE .ROUTE ; Start 07/02/17 at 09:37; Stop 07/02/17 at 09:38; Status DC Sevoflurane (Ultane) 15 ml STK-MED ONCE IH ; Start 07/02/17 at 09:53; Stop 07/02 at 09:54; Status DC Zolpidem Tartrate (Ambien) 5 mg QHS PO Last administered on 07/13/17 21:22; Start 07/02/17 at 21:00 Acetaminophen (Tylenol) 650 mg PRN Q6HRS PRN PO FEVER Last administered on 21:02; Start 07/02/17 at 15:45 Ondansetron HCl (Zofran) 4 mg PRN Q6HRS PRN IV NAUSEA/VOMITING; Start 07/02/17 at 15:45 Morphine Sulfate 2 mg PRN Q2HR PRN IV PAIN Last administered on 07/14/17 05: 18; Start 07/02/17 at 15:45 Tramadol HCl (Ultram) 50 mg PRN Q6HRS PRN PO MILD PAIN Last administered on 12:44; Start 07/02/17 at 15:45 Hydralazine HCl (Apresoline Inj) 10 mg PRN Q4HRS PRN IVP ELEVATED BP, SEE COMMENTS; Start 07/02/17 at 15:45 Docusate Sodium (Colace) 100 mg PRN DAILY PRN PO CONSTIPATION; Start 07/02/17 at 15:45 Insulin Aspart (NovoLOG) 0-9 UNITS TIDWMEALS SQ Last administered on 11:58; Start 07/03/17 at 12:00 Dextrose (Dextrose 50%-Water Syringe) 12.5 gm PRN Q15MIN PRN IV SEE COMMENTS; Start 07/03/17 at 09:00 Magnesium Sulfate/ Dextrose 50 ml @ 25 mls/hr PRN DAILY PRN IV for Mag < 1.7 on am labs; Start 07/03/17 at 09:15 Clindamycin Phosphate (Cleocin 900mg Premix) 900 mg STK-MED ONCE IV ; Start 07/02/17 at 08:00; Stop 07/03/17 at 09:11; Status DC Insulin Aspart (NovoLOG) 5 units 1X ONCE SQ Last administered on 07/03/17 09: 46; Start 07/03/17 at 09:30; Stop 07/03/17 at 09:31; Status DC Potassium Chloride (Klor-Con) 20 meq BIDWMEALS PO Last administered on 16:37; Start 07/03/17 at 17:00 Ciprofloxacin/ Dextrose 200 ml @ 200 mls/hr DAILY IV ; Start 07/03/17 at 14:00 ; Stop 07/03/17 at 14:38; Status DC Ciprofloxacin/ Dextrose 200 ml @ 200 mls/hr Q18H IV ; Start 07/04/17 at 09:00 ; Stop 07/04/17 at 11:51; Status DC Ciprofloxacin/ Dextrose 200 ml @ 200 mls/hr 1X ONCE IV Last administered on 07/03/17 16:24; Start 07/03/17 at 15:30; Stop 07/04/17 at 11:51; Status DC Magnesium Sulfate/ Dextrose 50 ml @ 25 mls/hr 1X ONCE IV Last administered on 07/04/17 11:41; Start 07/04/17 at 10:30; Stop 07/04/17 at 12:29; Status DC Ertapenem 0.5 gm/ Sodium Chloride 50 ml @ 100 mls/hr DAILY08 IV ; Start at 08:00; Status UNV Meropenem (Merrem) 500 mg Q24H IVP Last administered on 07/11/17 13:22; Start 07/04/17 at 13:00; Stop 07/11/17 at 14:00; Status DC Darbepoetin Fredi (Aranesp) 100 mcg QSA@2100 SQ Last administered on 07/12/17 21:49; Start 07/05/17 at 21:00; Stop 07/14/17 at 12:21; Status DC Lactobacillus Rhamnosus (Culturelle) 1 cap BID PO Last administered on 08:34; Start 07/06/17 at 21:00 Lisinopril (Prinivil) 10 mg QHS PO Last administered on 07/07/17 20:59; Start 07/07/17 at 21:00; Stop 07/08/17 at 14:45; Status DC Polyethylene Glycol (miraLAX PACKET) 17 gm PRN DAILY PRN PO CONSTIPATION Last administered on 07/07/17 21:15; Start 07/07/17 at 21:00 Lisinopril (Prinivil) 20 mg QHS PO Last administered on 07/14/17 22:17; Start 07/08/17 at 21:00 Ondansetron HCl (Zofran) 4 mg PRN Q6HRS PRN IV NAUSEA/VOMITING; Start at 07:00; Stop 07/10/17 at 06:59; Status DC Fentanyl Citrate (Fentanyl 2ml Vial) 25 mcg PRN Q5MIN PRN IV MILD PAIN; Start 07/09/17 at 07:00; Stop 07/10/17 at 06:59; Status DC Fentanyl Citrate (Fentanyl 2ml Vial) 50 mcg PRN Q5MIN PRN IV MODERATE PAIN; Start 07/09/17 at 07:00; Stop 07/10/17 at 06:59; Status DC Morphine Sulfate 1 mg PRN Q10MIN PRN IV SEVERE PAIN; Start 07/09/17 at 07:00; Stop 07/10/17 at 06:59; Status DC Ringer's Solution 1,000 ml @ 30 mls/hr Q24H IV ; Start 07/09/17 at 07:00; Stop 07/09/17 at 18:59; Status Cancel Lidocaine HCl (Xylocaine-Mpf 1% Vial) 2 ml PRN 1X PRN ID IV START; Start 07/09 at 07:00; Stop 07/10/17 at 06:59; Status DC Hydromorphone HCl (Dilaudid) 0.5 mg PRN Q10MIN PRN IV SEV PAIN, Second choice; Start 07/09/17 at 07:00; Stop 07/10/17 at 06:59; Status DC Prochlorperazine Edisylate (Compazine) 5 mg PACU PRN PRN IV NAUSEA, MRX1; Start 07/09/17 at 07:00; Stop 07/10/17 at 06:59; Status DC Ondansetron HCl (Zofran) 4 mg PRN Q6HRS PRN IV NAUSEA/VOMITING; Start at 07:00; Stop 07/11/17 at 06:59; Status DC Fentanyl Citrate (Fentanyl 2ml Vial) 25 mcg PRN Q5MIN PRN IV MILD PAIN; Start 07/10/17 at 07:00; Stop 07/11/17 at 06:59; Status DC Fentanyl Citrate (Fentanyl 2ml Vial) 50 mcg PRN Q5MIN PRN IV MODERATE PAIN Last administered on 07/10/17t 14:54; Start 07/10/17 at 07:00; Stop 07/11/17 at 06:59; Status DC Morphine Sulfate 1 mg PRN Q10MIN PRN IV SEVERE PAIN Last administered on t 15:05; Start 07/10/17 at 07:00; Stop 07/11/17 at 06:59; Status DC Ringer's Solution 1,000 ml @ 30 mls/hr Q24H IV ; Start 07/10/17 at 07:00; Stop 07/10/17 at 18:59; Status DC Lidocaine HCl (Xylocaine-Mpf 1% Vial) 2 ml PRN 1X PRN ID IV START; Start 07/10 at 07:00; Stop 07/11/17 at 06:59; Status DC Hydromorphone HCl (Dilaudid) 0.5 mg PRN Q10MIN PRN IV SEV PAIN, Second choice Last administered on 07/10/17t 15:58; Start 07/10/17 at 07:00; Stop 07/11/17 at 06:59; Status DC Prochlorperazine Edisylate (Compazine) 5 mg PACU PRN PRN IV NAUSEA, MRX1 Last administered on 07/10/17t 15:35; Start 07/10/17 at 07:00; Stop 07/11/17 at 06 :59; Status DC Sevoflurane (Ultane) 60 ml STK-MED ONCE IH ; Start 07/10/17 at 11:08; Stop at 11:09; Status DC Fentanyl Citrate (Fentanyl 2ml Vial) 100 mcg STK-MED ONCE .ROUTE ; Start at 11:11; Stop 07/10/17 at 11:12; Status DC Propofol 0 ml @ As Directed STK-MED ONCE IV ; Start 07/10/17 at 11:11; Stop at 11:12; Status DC Lidocaine HCl (Lidocaine Pf 2% Vial) 5 ml STK-MED ONCE .ROUTE ; Start 07/10/17 at 11:11; Stop 07/10/17 at 11:12; Status DC Dexamethasone Sodium Phosphate (Decadron) 20 mg STK-MED ONCE .ROUTE ; Start at 11:11; Stop 07/10/17 at 11:12; Status DC Ondansetron HCl (Zofran) 4 mg STK-MED ONCE .ROUTE ; Start 07/10/17 at 11:11; Stop 07/10/17 at 11:12; Status DC Etomidate (Amidate) 20 mg STK-MED ONCE IV ; Start 07/10/17 at 11:48; Stop at 11:49; Status DC Ephedrine Sulfate (Akovaz) 50 mg STK-MED ONCE .ROUTE ; Start 07/10/17 at 12:52 ; Stop 07/10/17 at 12:53; Status DC Hydralazine HCl (Apresoline Inj) 20 mg STK-MED ONCE .ROUTE ; Start 07/10/17 at 13:16; Stop 07/10/17 at 13:17; Status DC Fentanyl Citrate (Fentanyl 2ml Vial) 100 mcg STK-MED ONCE .ROUTE ; Start at 13:17; Stop 07/10/17 at 13:18; Status DC Acetaminophen/ Hydrocodone Bitart (Lortab 7.5/325) 1 tab PRN Q4HRS PRN PO PAIN Last administered on 07/13/17 13:26; Start 07/11/17 at 08:15 Info (PHARMACY MONITORING -- do not chart) 1 each PRN DAILY PRN MC SEE COMMENTS ; Start 07/13/17 at 15:00 Magnesium Sulfate/ Dextrose 50 ml @ 25 mls/hr PRN DAILY PRN IV for Mag < 1.7 on am labs; Start 07/13/17 at 15:15; Status Cancel Gabapentin (Neurontin) 300 mg 1X ONCE PO Last administered on 07/13/17 17:01 ; Start 07/13/17 at 17:00; Stop 07/13/17 at 17:01; Status DC Acetaminophen/ Hydrocodone Bitart (Lortab 10/325) 1 tab PRN Q4HRS PRN PO PAIN Last administered on 07/15/17 08:33; Start 07/14/17 at 11:30 Calcium Acetate (Phoslo) 2,001 mg TIDWMEALS PO Last administered on 07/15/17 11:47; Start 07/14/17 at 17:00 Darbepoetin Fredi (Aranesp) 100 mcg QSA@2100 SQ ; Start 07/19/17 at 21:00 Darbepoetin Fredi (Aranesp) 40 mcg QSA@2100 SQ ; Start 07/19/17 at 21:00 Active Scripts Active Reported Carvedilol 25 Mg Tablet 1 Tab PO BID Coq-10 (Ubidecarenone) 100 Mg Capsule 400 Mg PO BID Krill Oil 500 mg Softgel (Krill/Om-3/Dha/Epa/Phospho/Ast) 1 Each Capsule 1 Each PO DAILY Vitamin D3 (Cholecalciferol (Vitamin D3)) 1,000 Unit Tablet 1 Tab PO DAILY Potassium Chloride 20 Meq Tablet.er 20 Meq PO BID Metoprolol Succinate ( Xl ) (Metoprolol Succinate) 25 Mg Tab.er.24h 1 Tab PO DAILY Calcium Acetate 667 Mg Tablet 1,334 Mg PO TIDWMEALS Ambien (Zolpidem Tartrate) 10 Mg Tablet 1 Tab PO QHS Humalog (Insulin Lispro) 100 Unit/1 Ml Cartridge 0 SQ Doxazosin Mesylate 4 Mg Tablet 4 Mg PO HS Nephro-Harsha Tablet (Folic Acid/Vitamin B Comp W-C) 0.8 Mg Tablet 1 Tab PO DAILY Aspir 81 (Aspirin) 81 Mg Tablet.dr 1 Tab PO DAILY Furosemide 80 Mg Tablet 80 Mg PO BID Sodium Bicarbonate 650 Mg Tablet 1 Tab PO TIDAC Artificial Tears Eye Drops (Dextran 70/Hypromellose) 15 Ml Drops 1 Drop EACHEYE BID Pravastatin Sodium 10 Mg Tablet 1 Tab PO QHS Tamsulosin Hcl 0.4 Mg Cap.er.24h 1 Cap PO DAILY Docusate Sodium 100 Mg Capsule 200 Mg PO DAILY Aranesp Syringe (Darbepoetin Fredi In Polysorbat) 60 Mcg/0.3 Ml Disp.syrin 60 Mcg SQ WEEKLY Ferrous Sulfate 325 Mg Tablet 1 Tab PO DAILY Duoneb 0.5-3(2.5) Mg/3 Ml (Albuterol/Ipratropium) 3 Ml Ampul.neb 3 Ml NEB TID Tums Ultra (Calcium Carbonate) 400 Mg Tab.chew 500 Mg PO TID Allopurinol 100 Mg Tablet 1 Tab PO DAILY Clonidine Hcl 0.2 Mg Tablet 1 Tab PO PRN TAKES ONLY IF HIS BLOOD PRESSURE IS ELEVATED Lisinopril 5 Mg Tablet 1 Tab PO HS Levemir (Insulin Detemir) 100 Unit/1 Ml Vial 20 Unit SQ HS Vitals/I & O Vital Sign - Last 24 Hours 07/14/17 07/14/17 07/14/17 07/14/17 13:04 14:05 15:00 17:03 Temp 98.7 97.9 98.7 97.9 Pulse 77 75 77 Resp 18 18 B/P (MAP) 128/77 (94) 107/79 (88) 128/77 Pulse Ox 100 O2 Delivery Room Air Room Air Room Air O2 Flow Rate 94.0 07/14/17 07/14/17 07/14/17 07/14/17 17:04 17:15 18:05 20:00 Temp 97.9 98.1 97.9 98.1 Pulse 75 75 Resp 18 18 B/P (MAP) 107/79 (88) 104/68 (80) Pulse Ox 94 100 94 97 O2 Delivery Room Air Room Air Room Air 07/14/17 07/14/17 07/14/17 07/14/17 20:00 21:00 21:00 22:17 Pulse 75 75 75 B/P (MAP) 104/68 104/68 104/68 O2 Delivery Room Air 07/14/17 07/15/17 07/15/17 07/15/17 23:00 03:00 07:00 07:20 Temp 97.7 97.2 97.6 97.7 97.2 97.6 Pulse 83 84 Resp 18 18 18 B/P (MAP) 140/69 (92) 158/34 (75) 111/51 (71) Pulse Ox 94 94 96 94 O2 Delivery Room Air Room Air Room Air Room Air 07/15/17 07/15/17 07/15/17 07/15/17 08:33 08:47 08:47 08:47 Pulse 84 84 84 Resp 16 B/P (MAP) 111/51 111/51 111/51 O2 Delivery Room Air 07/15/17 07/15/17 07/15/17 09:33 11:00 12:11 Temp 97.9 97.9 Pulse 81 Resp 16 18 B/P (MAP) 119/42 (67) Pulse Ox 94 O2 Delivery Room Air Room Air Room Air O2 Flow Rate 2.0 Intake and Output 07/14/17 07/14/17 07/15/17 15:00 23:00 07:00 Intake Total 100 ml Output Total 50 ml Balance 50 ml DAVONTE LIZARRAGA III DO Jul 15, 2017 13:10
[2017-07-15] MEDS: DOXAZOSIN MESYLATE 4 MG TABLET. PO SCH (20:34)
[2017-07-15] MEDS: ZOLPIDEM 5 MG TABLET. PO SCH (20:34)
[2017-07-15] MEDS: LISINOPRIL 20 MG TABLET PO SCH (20:35)
[2017-07-15] MEDS: ATORVASTATIN CALCIUM 10 MG TABLET. PO SCH (20:35)
[2017-07-15] MEDS: INSULIN DETEMIR 300 UNITS/3 ML INSULN.PEN. SQ SCH (20:44)
[2017-07-16 03:00] VITALS: BP 99/44
[2017-07-16 04:00] VITALS: BP 99/44
[2017-07-16 06:00] LABS: ALBUMIN 1.9 g/dL (3.4-5.0); CALCIUM 8.5 mg/dL (8.5-10.1); CREATININE 7.7 mg/dL (0.7-1.3); GFR 7.2; MAGNESIUM 2.3 mg/dL (1.8-2.4); PHOSPHORUS 7.8 mg/dL (2.6-4.7); POTASSIUM 4.3 mmol/L (3.5-5.1)
[2017-07-16 07:00] VITALS: BP 131/37
[2017-07-16] MEDS: IPRATRPIUM/ALBUTEROL 0.5/2.5MG 3 ML NEBU. NEB SCH (07:00)
[2017-07-16] MEDS: INSULIN ASPART 300 UNITS/3 ML INSULN.PEN SQ SCH ×2 (08:00→12:00)
[2017-07-16] MEDS: POTASSIUM CHLORIDE 20 MEQ TABLET.ER. PO SCH (08:00)
--- NOTE | 2017-07-16 08:07 | PDOC ---
ORTHO PROGRESS NOTES Subjective Pain doing a little better. Phantom pain"subsiding a bit" Vitals Vital Signs Date Time Temp Pulse Resp B/P (MAP) Pulse Ox O2 Delivery O2 Flow Rate FiO2 07/16/17 07:01 Room Air 07/16/17 04:00 98.0 79 99/44 (62) 96 2.0 98.0 07/16/17 03:00 18 Labs Laboratory Tests Test 07/14/17 11:03 07/14/17 16:41 07/14/17 21:44 07/15/17 05:00 Glucose (Fingerstick) 138 mg/dL (70-99) 167 mg/dL (70-99) 129 mg/dL (70-99) Sodium Level 134 mmol/L (136-145) Potassium Level 4.4 mmol/L (3.5-5.1) Chloride Level 95 mmol/L (98-107) Carbon Dioxide Level 31 mmol/L (21-32) Anion Gap 8 (6-14) Blood Urea Nitrogen 95 mg/dL (8-26) Creatinine 7.4 mg/dL (0.7-1.3) Estimated GFR (Cockcroft-Gault) 7.5 Glucose Level 82 mg/dL (70-99) Calcium Level 8.0 mg/dL (8.5-10.1) Phosphorus Level 8.5 mg/dL (2.6-4.7) Magnesium Level 2.1 mg/dL (1.8-2.4) Albumin 2.0 g/dL (3.4-5.0) Test 07/15/17 07:58 07/15/17 11:23 07/15/17 16:08 07/15/17 20:37 Glucose (Fingerstick) 77 mg/dL (70-99) 168 mg/dL (70-99) 132 mg/dL (70-99) 119 mg/dL (70-99) Test 07/16/17 05:25 Sodium Level 134 mmol/L (136-145) Potassium Level 4.3 mmol/L (3.5-5.1) Chloride Level 94 mmol/L (98-107) Carbon Dioxide Level 30 mmol/L (21-32) Anion Gap 10 (6-14) Blood Urea Nitrogen 99 mg/dL (8-26) Creatinine 7.7 mg/dL (0.7-1.3) Estimated GFR (Cockcroft-Gault) 7.2 Glucose Level 166 mg/dL (70-99) Calcium Level 8.5 mg/dL (8.5-10.1) Phosphorus Level 7.8 mg/dL (2.6-4.7) Magnesium Level 2.3 mg/dL (1.8-2.4) Albumin 1.9 g/dL (3.4-5.0) Laboratory Tests Test 07/15/17 11:23 07/15/17 16:08 07/15/17 20:37 07/16/17 05:25 Glucose (Fingerstick) 168 mg/dL (70-99) 132 mg/dL (70-99) 119 mg/dL (70-99) Sodium Level 134 mmol/L (136-145) Potassium Level 4.3 mmol/L (3.5-5.1) Chloride Level 94 mmol/L (98-107) Carbon Dioxide Level 30 mmol/L (21-32) Anion Gap 10 (6-14) Blood Urea Nitrogen 99 mg/dL (8-26) Creatinine 7.7 mg/dL (0.7-1.3) Estimated GFR (Cockcroft-Gault) 7.2 Glucose Level 166 mg/dL (70-99) Calcium Level 8.5 mg/dL (8.5-10.1) Phosphorus Level 7.8 mg/dL (2.6-4.7) Magnesium Level 2.3 mg/dL (1.8-2.4) Albumin 1.9 g/dL (3.4-5.0) Notes A and A BKA brace in place Assessment and Plan plan on transfer this afternoon cont BKA brace f/u in my clinic in 2-3 wks JOSELITO PONCE II, MD Jul 16, 2017 08:07
[2017-07-16] MEDS: cloNIDine HCL 0.2 MG TABLET PO SCH (09:00)
[2017-07-16] MEDS: CALCIUM ACETATE 667 MG CAPSULE PO SCH (09:57)
[2017-07-16] MEDS: FUROSEMIDE 80 MG TABLET. PO SCH (09:57)
[2017-07-16] MEDS: DOCUSATE SODIUM 100 MG CAPSULE. PO SCH (09:58)
[2017-07-16] MEDS: TAMSULOSIN 0.4 MG CAP.ER.24H. PO SCH (09:58)
[2017-07-16] MEDS: ASPIRIN ENTERIC COATED 81 MG TABLET.DR. PO SCH (09:58)
[2017-07-16] MEDS: SENNOSIDES/DOCUSATE 8.6/50MG TABLET. PO SCH (09:58)
[2017-07-16] MEDS: CALCIUM CARBONATE 500 MG TAB.CHEW PO SCH (09:58)
[2017-07-16] MEDS: SODIUM BICARBONATE 650 MG TABLET. PO SCH (09:58)
[2017-07-16] MEDS: FOLIC/VIT B COMP W-C (RENAL) TABLET. PO SCH (09:58)
[2017-07-16] MEDS: ALLOPURINOL 100 MG TABLET. PO SCH (09:58)
[2017-07-16] MEDS: FERROUS SULFATE 325 MG TABLET. PO SCH (09:58)
[2017-07-16] MEDS: CHOLECALCIFEROL (VITAMIN D3) 1,000 UNIT TABLET PO SCH (09:58)
[2017-07-16] MEDS: LACTOBACILLUS RHAMNOSUS GG 1 CAPSULE. PO SCH (09:58)
[2017-07-16] MEDS: METOPROLOL SUCC 24HR ER 25 MG TAB.ER.24H. PO SCH (09:59)
[2017-07-16 10:00] VITALS: BP 131/37
[2017-07-16] MEDS: CARVEDILOL 12.5 MG TABLET. PO SCH (10:00)
[2017-07-16] MEDS: traMADol 50 MG TABLET PO PRN (10:09)
[2017-07-16 11:00] VITALS: BP 130/25
--- NOTE | 2017-07-16 11:30 | PDOC ---
Dialysis Progress Note Dialysis Note Dialysis Note Seen on CAPD, tolerating treatment Well Vitals as documented General Appearance: Awake: Alert Oriented x 3 Neck: No JVD or JVP Chest: CTA Stanislaw Heart: S1 S2 Abdomen - Soft NTND Extremities - No Edema ESRD: ct CAPD as orderd for now. CCPD tonight at [facility] increased yest OK to D/c to [facility] Vitals Vital Signs Vital Signs Date Time Temp Pulse Resp B/P (MAP) Pulse Ox O2 Delivery O2 Flow Rate FiO2 07/16/17 10:09 16 Room Air 07/16/17 10:00 78 131/37 07/16/17 07:00 93 07/16/17 04:00 98.0 2.0 98.0 Labs Last Labs Laboratory Tests Test 07/14/17 16:41 07/14/17 21:44 07/15/17 05:00 07/15/17 07:58 Glucose (Fingerstick) 167 mg/dL (70-99) 129 mg/dL (70-99) 77 mg/dL (70-99) Sodium Level 134 mmol/L (136-145) Potassium Level 4.4 mmol/L (3.5-5.1) Chloride Level 95 mmol/L (98-107) Carbon Dioxide Level 31 mmol/L (21-32) Anion Gap 8 (6-14) Blood Urea Nitrogen 95 mg/dL (8-26) Creatinine 7.4 mg/dL (0.7-1.3) Estimated GFR (Cockcroft-Gault) 7.5 Glucose Level 82 mg/dL (70-99) Calcium Level 8.0 mg/dL (8.5-10.1) Phosphorus Level 8.5 mg/dL (2.6-4.7) Magnesium Level 2.1 mg/dL (1.8-2.4) Albumin 2.0 g/dL (3.4-5.0) Test 07/15/17 11:23 07/15/17 16:08 07/15/17 20:37 07/16/17 05:25 Glucose (Fingerstick) 168 mg/dL (70-99) 132 mg/dL (70-99) 119 mg/dL (70-99) Sodium Level 134 mmol/L (136-145) Potassium Level 4.3 mmol/L (3.5-5.1) Chloride Level 94 mmol/L (98-107) Carbon Dioxide Level 30 mmol/L (21-32) Anion Gap 10 (6-14) Blood Urea Nitrogen 99 mg/dL (8-26) Creatinine 7.7 mg/dL (0.7-1.3) Estimated GFR (Cockcroft-Gault) 7.2 Glucose Level 166 mg/dL (70-99) Calcium Level 8.5 mg/dL (8.5-10.1) Phosphorus Level 7.8 mg/dL (2.6-4.7) Magnesium Level 2.3 mg/dL (1.8-2.4) Albumin 1.9 g/dL (3.4-5.0) Test 07/16/17 07:39 Glucose (Fingerstick) 141 mg/dL (70-99) Laboratory Tests Test 07/15/17 16:08 07/15/17 20:37 07/16/17 05:25 07/16/17 07:39 Glucose (Fingerstick) 132 mg/dL (70-99) 119 mg/dL (70-99) 141 mg/dL (70-99) Sodium Level 134 mmol/L (136-145) Potassium Level 4.3 mmol/L (3.5-5.1) Chloride Level 94 mmol/L (98-107) Carbon Dioxide Level 30 mmol/L (21-32) Anion Gap 10 (6-14) Blood Urea Nitrogen 99 mg/dL (8-26) Creatinine 7.7 mg/dL (0.7-1.3) Estimated GFR (Cockcroft-Gault) 7.2 Glucose Level 166 mg/dL (70-99) Calcium Level 8.5 mg/dL (8.5-10.1) Phosphorus Level 7.8 mg/dL (2.6-4.7) Magnesium Level 2.3 mg/dL (1.8-2.4) Albumin 1.9 g/dL (3.4-5.0) MIREYA HART MD Jul 16, 2017 11:30
[2017-07-19] MEDS ORDERED: DARBEPOETIN ALFA 40 MCG/0.4 ML DISP.SYRIN. SQ SCH (21:00)
[2017-07-19] MEDS ORDERED: DARBEPOETIN ALFA 100 MCG/0.5 ML DISP.SYRIN. SQ SCH (21:00)
--- NOTE | 2017-07-25 10:30 | DS ---
DATE OF DISCHARGE: 07/16/2017 ADMISSION DIAGNOSIS: Right foot wound dehiscence. DISCHARGE DIAGNOSIS: Resolving right foot wound dehiscence. HOSPITAL COURSE: The patient is a pleasant 61-year-old male who is on dialysis. He also has severe peripheral vascular disease and he has got foot wounds. Basically, he was admitted with right foot wound dehiscence. We gave him IV antibiotics. We consulted Surgery. He went for correction. Basically, he did well. We discharged to [facility]. DISPOSITION: [facility]. ACTIVITY: As tolerated. DIET: Low sodium. MEDICATIONS: Please see the MRAD. TOTAL TIME: 33 minutes. DAVONTE LIZARRAGA DO DR: PAUL/galen JOB#: [id number] / [id number]
== END 2017-07-16 13:25 | disposition short-term general hospital (02) | DRG 474 ==
LOC: OPSVCIP 07:53 → 4 NORTH 11:27
PROVIDERS: ADMIT Orthopaedic Surgery Sports Medicine; ATTEND Orthopaedic Surgery Sports Medicine
PROC: 0QBP0ZZ Excision of Left Metatarsal, Open Approach (ICD-10-PCS; principal; 2017-07-02 10:15)
PROC: 5A09357 Assistance with Respiratory Ventilation, Less than 24 Consecutive Hours, Continuous Positive Airway Pressure (ICD-10-PCS; 2017-07-03)
PROC: 5A09357 Assistance with Respiratory Ventilation, Less than 24 Consecutive Hours, Continuous Positive Airway Pressure (ICD-10-PCS; 2017-07-04)
PROC: 5A09357 Assistance with Respiratory Ventilation, Less than 24 Consecutive Hours, Continuous Positive Airway Pressure (ICD-10-PCS; 2017-07-06)
PROC: 0Y6J0Z2 Detachment at Left Lower Leg, Mid, Open Approach (ICD-10-PCS; 2017-07-10)
PROC: 5A09357 Assistance with Respiratory Ventilation, Less than 24 Consecutive Hours, Continuous Positive Airway Pressure (ICD-10-PCS; 2017-07-12)
DX: T87.81 Dehiscence of amputation stump (principal); N18.6 End stage renal disease; I44.2 Atrioventricular block, complete; E11.22 Type 2 diabetes mellitus with diabetic chronic kidney disease; E11.40 Type 2 diabetes mellitus with diabetic neuropathy, unspecified; E44.0 Moderate protein-calorie malnutrition; E66.01 Morbid (severe) obesity due to excess calories; M86.9 Osteomyelitis, unspecified; I12.0 Hypertensive chronic kidney disease with stage 5 chronic kidney disease or end stage renal disease; R13.10 Dysphagia, unspecified; Z99.2 Dependence on renal dialysis; I25.10 Atherosclerotic heart disease of native coronary artery without angina pectoris; I25.2 Old myocardial infarction; J44.9 Chronic obstructive pulmonary disease, unspecified; E11.621 Type 2 diabetes mellitus with foot ulcer; D63.1 Anemia in chronic kidney disease; E11.51 Type 2 diabetes mellitus with diabetic peripheral angiopathy without gangrene; E11.69 Type 2 diabetes mellitus with other specified complication; Z79.4 Long term (current) use of insulin; Z79.2 Long term (current) use of antibiotics; Z89.429 Acquired absence of other toe(s), unspecified side; Z87.11 Personal history of peptic ulcer disease; Z68.32 Body mass index [BMI] 32.0-32.9, adult; Z91.048 Other nonmedicinal substance allergy status; Z88.8 Allergy status to other drugs, medicaments and biological substances; Z91.040 Latex allergy status; Z88.1 Allergy status to other antibiotic agents; Z88.0 Allergy status to penicillin; Z82.49 Family history of ischemic heart disease and other diseases of the circulatory system; Z95.1 Presence of aortocoronary bypass graft
CPT/HCPCS: 36415; 36569; 71010; 73560; 80048; 80069; 82962; 83735; 85007; 85018; 85025; 85651; 87071; 87075; 87186; 87205; 87641; 88305; 88311; 94250; 94640; 94760; 97168; J0360; J0744; J0780; J0881; J1100; J1170; J1815; J2185; J2250; J2270; J2405; J2704; J3010; J3490; J7030; J7060; J7120; J7620; 97110; 97530; A4461; J2001

== ENCOUNTER → 2017-09-09 | Outpatient (CLI) | payer MEDICARE | END | disposition home or self-care (01) | LOC: PMGWOUND 10:13 | DX: E11.622 Type 2 diabetes mellitus with other skin ulcer (principal); L97.221 Non-pressure chronic ulcer of left calf limited to breakdown of skin; E11.22 Type 2 diabetes mellitus with diabetic chronic kidney disease; I13.2 Hypertensive heart and chronic kidney disease with heart failure and with stage 5 chronic kidney disease, or end stage renal disease; I50.9 Heart failure, unspecified; N18.6 End stage renal disease; E11.40 Type 2 diabetes mellitus with diabetic neuropathy, unspecified; E11.51 Type 2 diabetes mellitus with diabetic peripheral angiopathy without gangrene; J44.9 Chronic obstructive pulmonary disease, unspecified; F41.9 Anxiety disorder, unspecified; I25.2 Old myocardial infarction; I25.810 Atherosclerosis of coronary artery bypass graft(s) without angina pectoris; Z99.2 Dependence on renal dialysis; Z89.429 Acquired absence of other toe(s), unspecified side; Z79.4 Long term (current) use of insulin; Z95.1 Presence of aortocoronary bypass graft; Z89.612 Acquired absence of left leg above knee | CPT/HCPCS: 97597 ==

== ENCOUNTER → 2017-09-11 | Outpatient (CLI) | payer MEDICARE | END | disposition home or self-care (01) | LOC: PMGWOUND 13:23 | DX: E11.622 Type 2 diabetes mellitus with other skin ulcer (principal); L97.221 Non-pressure chronic ulcer of left calf limited to breakdown of skin; E11.22 Type 2 diabetes mellitus with diabetic chronic kidney disease; I13.2 Hypertensive heart and chronic kidney disease with heart failure and with stage 5 chronic kidney disease, or end stage renal disease; I50.9 Heart failure, unspecified; N18.6 End stage renal disease; E11.40 Type 2 diabetes mellitus with diabetic neuropathy, unspecified; E11.51 Type 2 diabetes mellitus with diabetic peripheral angiopathy without gangrene; J44.9 Chronic obstructive pulmonary disease, unspecified; F41.9 Anxiety disorder, unspecified; I25.2 Old myocardial infarction; I25.810 Atherosclerosis of coronary artery bypass graft(s) without angina pectoris; Z99.2 Dependence on renal dialysis; Z89.429 Acquired absence of other toe(s), unspecified side; Z79.4 Long term (current) use of insulin; Z95.1 Presence of aortocoronary bypass graft; Z89.612 Acquired absence of left leg above knee | CPT/HCPCS: 93922 ==

== ENCOUNTER → 2017-09-16 | Outpatient (CLI) | payer MEDICARE | END | disposition home or self-care (01) | LOC: PMGWOUND 11:01 | DX: T86.821 Skin graft (allograft) (autograft) failure (principal); E11.622 Type 2 diabetes mellitus with other skin ulcer; L97.221 Non-pressure chronic ulcer of left calf limited to breakdown of skin; E11.22 Type 2 diabetes mellitus with diabetic chronic kidney disease; I13.2 Hypertensive heart and chronic kidney disease with heart failure and with stage 5 chronic kidney disease, or end stage renal disease; I50.9 Heart failure, unspecified; N18.6 End stage renal disease; E11.40 Type 2 diabetes mellitus with diabetic neuropathy, unspecified; E11.51 Type 2 diabetes mellitus with diabetic peripheral angiopathy without gangrene; J44.9 Chronic obstructive pulmonary disease, unspecified; I25.2 Old myocardial infarction; F41.9 Anxiety disorder, unspecified; I25.810 Atherosclerosis of coronary artery bypass graft(s) without angina pectoris; Z99.2 Dependence on renal dialysis; Z89.429 Acquired absence of other toe(s), unspecified side; Z79.4 Long term (current) use of insulin; Z95.1 Presence of aortocoronary bypass graft; Z89.612 Acquired absence of left leg above knee; Y83.2 Surgical operation with anastomosis, bypass or graft as the cause of abnormal reaction of the patient, or of later complication, without mention of misadventure at the time of the procedure | CPT/HCPCS: 99214 ==

== ENCOUNTER → 2017-09-23 | Outpatient (CLI) | payer MEDICARE, OTHER | END | disposition home or self-care (01) | LOC: PMGWOUND 10:01 | DX: T86.821 Skin graft (allograft) (autograft) failure (principal); E11.622 Type 2 diabetes mellitus with other skin ulcer; L97.221 Non-pressure chronic ulcer of left calf limited to breakdown of skin; E11.22 Type 2 diabetes mellitus with diabetic chronic kidney disease; I13.2 Hypertensive heart and chronic kidney disease with heart failure and with stage 5 chronic kidney disease, or end stage renal disease; I50.9 Heart failure, unspecified; N18.6 End stage renal disease; E11.40 Type 2 diabetes mellitus with diabetic neuropathy, unspecified; E11.51 Type 2 diabetes mellitus with diabetic peripheral angiopathy without gangrene; J44.9 Chronic obstructive pulmonary disease, unspecified; I25.2 Old myocardial infarction; F41.9 Anxiety disorder, unspecified; I25.810 Atherosclerosis of coronary artery bypass graft(s) without angina pectoris; Z99.2 Dependence on renal dialysis; Z89.429 Acquired absence of other toe(s), unspecified side; Z79.4 Long term (current) use of insulin; Z95.1 Presence of aortocoronary bypass graft; Z89.612 Acquired absence of left leg above knee; Y83.2 Surgical operation with anastomosis, bypass or graft as the cause of abnormal reaction of the patient, or of later complication, without mention of misadventure at the time of the procedure | CPT/HCPCS: 99214 ==

== ENCOUNTER 2017-09-24 08:13 | Day surgery (SDC) | payer MEDICARE, OTHER ==
[2017-09-24] MEDS: IV RINGERS,LACTATED 1000ML 1,000 ML IV ×2 (07:00)
[~2017-09-24 08:13] MED LIST changes: -ACET100V3 MC; -ACET500T68 PO; -ALBU2.5V5 NEB; -ALLO100T PO; -ASPI-482 PO; -ASPI300S RC; -ASPI325T8 PO; -ATOR10TA60 PEG; -ATOR10TA60 PO; -BISA-42 PO; -BUPIVACAINE MPF 0.5% 30 ML VIAL. ONE; -CALC400T5 PO; -CALC500T PEG; -CALC667C6 PO; -CALC667T PO; -CARV25TA2 PO; -CHLO15MO2 PO; -CHOL10003 PO; -CLON0.2T PO; -CRAN500C6 PO; -DARB60DI SQ; -DEXT15DR5 EACHEYE; -DIPH25CA58 IV; -DIPH50CA PO; -DOCU100C28 PO; -DOXA4TAB3 PO; -DOXA8TAB59 PO; -FAMO20TA5 PEG; -FAMO20TA5 PO; -FAT250EM9 IV; -FERR-26 PO; -FERR324T5 PO; -FLUT50DI IH; -FOLI0.8T3 PO; -FURO40TA4 PO; -FURO80TA3 PO; -GABA-585 PO; -HYDR-2678 PO; -HYDR-2762 PO; -HYDR100T24 PO; -HYDR25CA PO; -HYDR25TA PO; -HYDR25TA9 PO; -HYDRALAZINE IVP; +HYDROmorphone 2 MG/ML VIAL IV; -HYDROmorphone 2 MG/ML VIAL IV PRN; -INSU100C SQ; -INSU100I17 SQ; -INSU100I27 SQ; -INSU100V13 SQ; -IPRA3AMP NEB; -ISOS20TA2 PEG; -ISOS60TA2 PO; -IV RINGERS,LACTATED 1000ML 1,000 ML IV SCH; -KRIL1CAP19 PO; -KRIL500C PO; +LIDOCAINE 1% PF 2 ML VIAL. ID; -LIDOCAINE 1% PF 2 ML VIAL. ID PRN; -LIDOCAINE 1% PF 30 ML VIAL. ONE; -LISI-338 PO; -LISI10TA2 PO; -METO-239 PO; -METO10TA81 IVP; -METO25TA4 IV; -MICO113C TP; -MORP15TA IVP; +MORPHINE SULFATE 2 MG/ML DISP.SYRIN. IV; -MORPHINE SULFATE 4 MG/ML DISP.SYRIN. IV PRN; -MVI IV; -ONDA4TAB11 IVP; +ONDANSETRON PF 4 MG/2 ML VIAL. IV; -ONDANSETRON PF 4 MG/2 ML VIAL. IV PRN; -PANT40TA5 PO; -PANT40VI IV; -POLY17PO29 PO; -POTA20TA82 PO; -PRAV10TA2 PO; +PROCHLORPERAZINE 10 MG/2 ML VIAL. IV; -PROCHLORPERAZINE 10 MG/2 ML VIAL. IV PRN; -SODI650T PO; -TAMS0.4C2 PO; -TEMA15CA PO; -TOBR5DRO6 EACHEYE; -UBID100C26 PO; -UBID400C3 PO; -VITA1CAP PEG; -ZOLP10TA PO; -ZOLP10TA4 PO; -ZOLP5TAB5 PO; -[UNRECOGNIZED DRUG - CODE] IV; -[UNRECOGNIZED DRUG - CODE] IV; -[UNRECOGNIZED DRUG - CODE] IV; -[UNRECOGNIZED DRUG - OTHER] OP; +fentaNYL PF VIAL 100 MCG/2 ML VIAL IV; -fentaNYL PF VIAL 100 MCG/2 ML VIAL IV PRN
[2017-09-24 08:56] LABS: POC GLUCOSE 172 mg/dL (70-99)
[2017-09-24] MEDS: IV NORMAL SALINE 1000ML BAG 1,000 ML IV ×2 (09:05)
[2017-09-24 09:11] LABS: BASO % 1 % (0-3); EOS # 0.4 x10^3/uL (0.0-0.7); EOS % 7 % (0-3); HEMOGLOBIN 11.4 g/dL (13.0-17.5); LYMPH # 0.3 x10^3/uL (1.0-4.8); LYMPH % 6 % (24-48); MEAN CORPUSCULAR HEMOGLOBIN 35 pg (25-35); MEAN CORPUSCULAR HGB CONC 34 g/dL (31-37); MEAN CORPUSCULAR VOLUME 103 fL (79-100); MONO # 0.4 x10^3/uL (0.0-1.1); MONO % 7 % (0-9); NEUT % 80 % (31-73); PLATELET COUNT 114 x10^3/uL (140-400); RED CELL DISTRIBUTION WIDTH 15.8 % (11.5-14.5); WHITE BLOOD COUNT 6.2 x10^3/uL (4.0-11.0)
[2017-09-24 09:16] LABS: ANION GAP 13 (6-14); BLOOD UREA NITROGEN 59 mg/dL (8-26); CALCIUM 8.8 mg/dL (8.5-10.1); CARBON DIOXIDE 28 mmol/L (21-32); CHLORIDE 104 mmol/L (98-107); CREATININE 6.3 mg/dL (0.7-1.3); GFR 9.1; GLUCOSE 189 mg/dL (70-99); SODIUM 145 mmol/L (136-145)
[2017-09-24 09:30] LABS: INR 1.2 (0.8-1.1); PROTHROMBIN TIME PATIENT 14.1 SEC (11.7-14.0)
[2017-09-24 09:32] LABS: ADD MAN DIFF? YES
[2017-09-24] MEDS ORDERED: MIDAZOLAM HCL/PF 2 MG/2 ML VIAL. ×2 (09:44)
[2017-09-24] MEDS ORDERED: LIDOCAINE 2% PF Vial for OR 5 ML VIAL. ×2 (09:44)
[2017-09-24] MEDS ORDERED: fentaNYL PF VIAL 100 MCG/2 ML VIAL ×2 (09:44)
[2017-09-24] MEDS ORDERED: PROPOFOL 20 ML IV ×2 (09:44)
[2017-09-24] MEDS: CLINDAMYCIN 900MG PREMIX 50 ML IV ×2 (10:36)
[2017-09-24] MEDS ORDERED: ePHEDrine PF IN SALINE 50 MG/5 ML DISP.SYRIN IV (10:51)
[2017-09-24] MEDS ORDERED: SEVOFLURANE 31 TO 60 MINUTES. IH ×2 (11:00)
[2017-09-24 11:15] LABS: POC GLUCOSE 163 mg/dL (70-99)
[2017-09-24] MEDS: HYDROcodone/APAP 5/325MG 1 TAB TABLET PO ×2 (12:04)
[2017-09-24 13:14] LABS: % ATYL 2 % (0-0); % BANDS 2 % (0-9); % EOS 17 % (0-5); % LYMPHS 8 % (24-48); % MONOS 7 % (0-10); % MYELOS 1 % (0-0); % SEGS 63 % (35-66); ANISOCYTOSIS SLIGHT; NUCLEATED RBC 1; PLT ESTIMATE DECREASED (ADEQUATE)
== END 2017-09-24 12:52 | disposition home or self-care (01) ==
LOC: SURG 08:13
DX: T81.89XA Other complications of procedures, not elsewhere classified, initial encounter (principal); Y83.8 Other surgical procedures as the cause of abnormal reaction of the patient, or of later complication, without mention of misadventure at the time of the procedure; Y92.89 Other specified places as the place of occurrence of the external cause; Z79.01 Long term (current) use of anticoagulants; Z98.41 Cataract extraction status, right eye; Z98.42 Cataract extraction status, left eye; Z86.39 Personal history of other endocrine, nutritional and metabolic disease; I13.2 Hypertensive heart and chronic kidney disease with heart failure and with stage 5 chronic kidney disease, or end stage renal disease; E11.22 Type 2 diabetes mellitus with diabetic chronic kidney disease; N18.6 End stage renal disease; I50.9 Heart failure, unspecified; J44.9 Chronic obstructive pulmonary disease, unspecified; E78.00 Pure hypercholesterolemia, unspecified; E66.9 Obesity, unspecified; Z68.29 Body mass index [BMI] 29.0-29.9, adult; Z89.512 Acquired absence of left leg below knee; Z86.69 Personal history of other diseases of the nervous system and sense organs; Z91.040 Latex allergy status; Z88.0 Allergy status to penicillin; Z88.8 Allergy status to other drugs, medicaments and biological substances; Z91.048 Other nonmedicinal substance allergy status
CPT/HCPCS: 11042; 36415; 80048; 82962; 85007; 85025; 85610; J2250; J2704; J3010; J3490

== ENCOUNTER → 2017-09-30 | Outpatient (CLI) | payer MEDICARE, OTHER | END | disposition home or self-care (01) | LOC: PMGWOUND 11:20 | DX: T87.89 Other complications of amputation stump (principal); E11.622 Type 2 diabetes mellitus with other skin ulcer; L97.223 Non-pressure chronic ulcer of left calf with necrosis of muscle; E11.22 Type 2 diabetes mellitus with diabetic chronic kidney disease; I13.2 Hypertensive heart and chronic kidney disease with heart failure and with stage 5 chronic kidney disease, or end stage renal disease; I50.9 Heart failure, unspecified; N18.6 End stage renal disease; E11.40 Type 2 diabetes mellitus with diabetic neuropathy, unspecified; E11.51 Type 2 diabetes mellitus with diabetic peripheral angiopathy without gangrene; J44.9 Chronic obstructive pulmonary disease, unspecified; I25.2 Old myocardial infarction; F41.9 Anxiety disorder, unspecified; E78.00 Pure hypercholesterolemia, unspecified; I25.810 Atherosclerosis of coronary artery bypass graft(s) without angina pectoris; E66.9 Obesity, unspecified; Z68.29 Body mass index [BMI] 29.0-29.9, adult; Z99.2 Dependence on renal dialysis; Z89.429 Acquired absence of other toe(s), unspecified side; Z79.4 Long term (current) use of insulin; Z95.1 Presence of aortocoronary bypass graft; Z89.512 Acquired absence of left leg below knee; Z89.612 Acquired absence of left leg above knee; Y83.5 Amputation of limb(s) as the cause of abnormal reaction of the patient, or of later complication, without mention of misadventure at the time of the procedure | CPT/HCPCS: 97597 ==

== ENCOUNTER → 2017-10-28 | Outpatient (CLI) | payer MEDICARE | END | disposition home or self-care (01) | LOC: PMGWOUND 10:53 | DX: T86.821 Skin graft (allograft) (autograft) failure (principal); E11.622 Type 2 diabetes mellitus with other skin ulcer; L97.223 Non-pressure chronic ulcer of left calf with necrosis of muscle; E11.22 Type 2 diabetes mellitus with diabetic chronic kidney disease; I13.2 Hypertensive heart and chronic kidney disease with heart failure and with stage 5 chronic kidney disease, or end stage renal disease; I50.9 Heart failure, unspecified; N18.6 End stage renal disease; Z99.2 Dependence on renal dialysis; I25.10 Atherosclerotic heart disease of native coronary artery without angina pectoris; Z95.1 Presence of aortocoronary bypass graft; Z89.612 Acquired absence of left leg above knee; Y83.2 Surgical operation with anastomosis, bypass or graft as the cause of abnormal reaction of the patient, or of later complication, without mention of misadventure at the time of the procedure | CPT/HCPCS: 99213 ==

== ENCOUNTER → 2017-11-11 | Outpatient (CLI) | payer MEDICARE | END | disposition home or self-care (01) | LOC: PMGWOUND 10:36 | DX: T86.821 Skin graft (allograft) (autograft) failure (principal); E11.622 Type 2 diabetes mellitus with other skin ulcer; L97.223 Non-pressure chronic ulcer of left calf with necrosis of muscle; E11.22 Type 2 diabetes mellitus with diabetic chronic kidney disease; I13.2 Hypertensive heart and chronic kidney disease with heart failure and with stage 5 chronic kidney disease, or end stage renal disease; I50.9 Heart failure, unspecified; N18.6 End stage renal disease; E11.51 Type 2 diabetes mellitus with diabetic peripheral angiopathy without gangrene; E11.36 Type 2 diabetes mellitus with diabetic cataract; I25.10 Atherosclerotic heart disease of native coronary artery without angina pectoris; F41.9 Anxiety disorder, unspecified; J44.9 Chronic obstructive pulmonary disease, unspecified; I25.2 Old myocardial infarction; Z95.1 Presence of aortocoronary bypass graft; Z99.2 Dependence on renal dialysis; Z89.429 Acquired absence of other toe(s), unspecified side; Z79.4 Long term (current) use of insulin; Z79.01 Long term (current) use of anticoagulants; Z89.612 Acquired absence of left leg above knee; Y83.2 Surgical operation with anastomosis, bypass or graft as the cause of abnormal reaction of the patient, or of later complication, without mention of misadventure at the time of the procedure | CPT/HCPCS: 99213 ==

== ENCOUNTER 2019-03-16 07:40 | Inpatient (IN) | payer MEDICARE ==
[2019-03-16] VITALS (11 sets, daily range): BP systolic 106–136; BP diastolic 59–76
[~2019-03-16] VITALS: Ht 182.9 cm; Wt 97.6 kg
[~2019-03-16 07:40] MED LIST changes: +ACET100V3 MC; +ACET325T9 PO; +ACET500T68 PO; +ALBU2.5V5 NEB; +ALLO100T PO; +ASCO500T2 PO; +ASPI-482 PO; +ASPI300S RC; +ASPI325T8 PO; +ATOR10TA60 PEG; +ATOR10TA60 PO; +BACITRACIN 50,000 UNIT in IV NORMAL SALINE 500ML BAG 500 ML IRR ONE; +BISA-42 PO; +CALC400T5 PO; +CALC500T31 PEG; +CALC667C6 PO; +CALC667T4 PO; +CARV12.5 PO; +CARV25TA2 PO; +CARV3.1210 PO; +CHLO15MO2 PO; +CHOL10003 PO; +CLON0.2T PO; +CRAN500C6 PO; +DAKINS 0.125% TOP; +DARB60DI SQ; +DEXT15DR5 EACHEYE; +DEXT15DR5 OP; +DIPH25CA58 IV; +DIPH25CA58 PO; +DIPH50CA PO; +DOCU-109 PO; +DOCU100C28 PO; +DOXA4TAB3 PO; +DOXA8TAB59 PO; +FAMO20TA5 PEG; +FAMO20TA5 PO; +FAT250EM9 IV; +FERR324T5 PO; +FERR325T14 PO; +FLUT50DI IH; +FOLI0.8T21 PO; +FOLI0.8T3 PO; +FURO40TA4 PO; +FURO80TA3 PO; +GABA-585 PO; +HEPA50008 SQ; +HYDR-2145 PO; +HYDR-2678 PO; +HYDR-2761 PO; +HYDR-2765 PO; +HYDR-3164 PO; +HYDR100T24 PO; +HYDR25CA PO; +HYDR25TA PO; +HYDRALAZINE IVP; -HYDROmorphone 2 MG/ML VIAL IV; +INSU100C SQ; +INSU100C4 SQ; +INSU100I17 SQ; +INSU100I27 SQ; +INSU100V13 SQ; +IPRA3AMP29 NEB; +ISOS20TA2 PEG; +ISOS60TA2 PO; +IV RINGERS,LACTATED 1000ML 1,000 ML IV SCH; +KRIL1CAP19 PO; +KRIL500C PO; +LACT1CAP53 PO; -LIDOCAINE 1% PF 2 ML VIAL. ID; +LIDOCAINE 1% PF 2 ML VIAL. ID PRN; +LISI-334 PO; +LISI-338 PO; +LISI10TA2 PO; +LOPE2CAP88 PO; +MERO500V15 IV; +METO-239 PO; +METO10TA81 IVP; +METO25TA4 IV; +MICO113C TP; +MORP15TA IVP; -MORPHINE SULFATE 2 MG/ML DISP.SYRIN. IV; +MORPHINE SULFATE 2 MG/ML VIAL. IV PRN; +MVI IV; +OMEP20CA10 PO; +ONDA4TAB11 IVP; +ONDA4TAB12 PO; -ONDANSETRON PF 4 MG/2 ML VIAL. IV; +ONDANSETRON PF 4 MG/2 ML VIAL. IV PRN; +PANT20TA2 PO; +PANT40TA77 PO; +PANT40VI IV; +POLY17PO29 PO; +POLY2500 MC; +POTA20TA82 PO; +PRAV10TA2 PO; -PROCHLORPERAZINE 10 MG/2 ML VIAL. IV; +PROCHLORPERAZINE 10 MG/2 ML VIAL. IV PRN; +SEVE800T9 PO; +SODI650T PO; +TAMS0.4C2 PO; +TEMA15CA PO; +TOBR5DRO6 EACHEYE; +UBID100C26 PO; +UBID400C3 PO; +VITA1CAP PEG; +ZOLP10TA PO; +ZOLP10TA4 PO; +ZOLP5TAB PO; +ZOLP5TAB5 PO; +[UNRECOGNIZED DRUG - CODE] IV; +[UNRECOGNIZED DRUG - CODE] IV; +[UNRECOGNIZED DRUG - CODE] IV; +[UNRECOGNIZED DRUG - OTHER] OP; -fentaNYL PF VIAL 100 MCG/2 ML VIAL IV; +fentaNYL PF VIAL 100 MCG/2 ML VIAL IV PRN
[2019-03-16] MEDS: IV NORMAL SALINE 1000ML BAG 1,000 ML IV SCH ×4 (08:08→21:35)
[2019-03-16] MEDS ORDERED: INSULIN LISPRO 100 UNIT/ML 3ML VIAL for OP,RR ONLY. SQ PRN (08:15)
[2019-03-16 08:21] LABS: BASO % 0 % (0-3); EOS # 0.3 x10^3/uL (0.0-0.7); EOS % 3 % (0-3); HEMOGLOBIN 8.8 g/dL (13.0-17.5); LYMPH # 0.6 x10^3/uL (1.0-4.8); LYMPH % 6 % (24-48); MEAN CORPUSCULAR HEMOGLOBIN 36 pg (25-35); MEAN CORPUSCULAR HGB CONC 33 g/dL (31-37); MONO # 1.2 x10^3/uL (0.0-1.1); MONO % 12 % (0-9); NEUT # 7.8 x10^3/uL (1.8-7.7); NEUT % 79 % (31-73); PLATELET COUNT 127 x10^3/uL (140-400); RED BLOOD COUNT 2.45 x10^6/uL (4.30-5.70); RED CELL DISTRIBUTION WIDTH 22.6 % (11.5-14.5); WHITE BLOOD COUNT 9.9 x10^3/uL (4.0-11.0)
[2019-03-16] MEDS ORDERED: ONDANSETRON PF 4 MG/2 ML VIAL. ONE (08:24)
[2019-03-16] MEDS ORDERED: DEXAMETHASONE SOD PHOS 4 MG/ML VIAL ONE (08:24)
[2019-03-16] MEDS ORDERED: fentaNYL PF VIAL 100 MCG/2 ML VIAL ONE (08:24)
[2019-03-16] MEDS ORDERED: LIDOCAINE 2% PF 5 ML VIAL. ONE (08:24)
[2019-03-16] MEDS ORDERED: PROPOFOL 20 ML IV ONE (08:24)
[2019-03-16 08:32] LABS: CALCIUM 9.1 mg/dL (8.5-10.1); CREATININE 12.5 mg/dL (0.7-1.3); GFR 4.1; MEAN CORPUSCULAR VOLUME 110 fL (79-100); PROTHROMBIN TIME PATIENT 14.7 SEC (11.7-14.0)
[2019-03-16 08:36] LABS: POTASSIUM 5.5 mmol/L (3.5-5.1)
[2019-03-16] MEDS ORDERED: NALOXONE 0.4 MG/ML VIAL. IV PRN ×2 (09:00)
[2019-03-16] MEDS ORDERED: CALCIUM CARBONATE 500 MG TAB.CHEW PO PRN (09:00)
[2019-03-16] MEDS ORDERED: ONDANSETRON PF 4 MG/2 ML VIAL. IV PRN (09:00)
[2019-03-16] MEDS ORDERED: POLYETHYLENE GLYCOL 3350 17 GM PACKET. PO PRN (09:00)
[2019-03-16] MEDS ORDERED: MAG HYDROX/ALUMINUM HYD/SIMETH 30 ML ORAL.SUSP PO PRN (09:00)
[2019-03-16] MEDS ORDERED: PROCHLORPERAZINE 10 MG/2 ML VIAL. IV PRN (09:00)
[2019-03-16] MEDS ORDERED: oxyCODONE/APAP 5/325 1 TAB TABLET PO PRN ×2 (09:00)
[2019-03-16] MEDS ORDERED: MORPHINE SULFATE 2 MG/ML VIAL. IV PRN (09:00)
[2019-03-16] MEDS ORDERED: ceFAZolin 2GM PREMIX 2 GM/50 ML BAG IV ONE (09:00)
[2019-03-16] MEDS ORDERED: 0.9 % SODIUM CHLORIDE 10 ML DISP.SYRIN. IV PRN (09:00)
[2019-03-16] MEDS ORDERED: ePHEDrine PF IN SALINE 50 MG/10 ML SYRINGE. IV ONE (09:02)
[2019-03-16] MEDS ORDERED: PHENYLEPHRINE in 0.9% NACL PF 1 MG/10 ML SYRINGE. IV ONE (09:02)
[2019-03-16] MEDS ORDERED: VASOPRESSIN 20 UNIT/ML VIAL. ONE (09:04)
[2019-03-16 09:58] LABS: ANISOCYTOSIS MOD; PLT ESTIMATE DECREASED (ADEQUATE); POLYCHROMASIA OCCASIONAL; TEAR DROP CELLS OCC
--- NOTE | 2019-03-16 10:29 | PDOC ---
BRIEF OPERATIVE NOTE Date: Mar 16, 2019 Pre-Op Diagnosis PAD, right heel gangrene Post-Op Diagnosis same Procedure Performed Right below knee amputation Surgeon Dr. Grimm Stitch Cleaner Ajit Barrow, JEB Anesthesia Type: General Blood Loss 200cc Specimens Obtained right leg Findings adequate bleeding Complications none Operative Note see dictated note AJIT BARROW AUTO BODY REPAIR ESTIMATOR Mar 16, 2019 10:29
[2019-03-16] MEDS ORDERED: ZOLPIDEM 5 MG TABLET. PO PRN (10:30)
[2019-03-16] MEDS ORDERED: ONDANSETRON ODT 4 MG TAB.RAPDIS. PO PRN (10:30)
[2019-03-16] MEDS ORDERED: diphenhydrAMINE HCL 25 MG CAPSULE PO PRN (10:30)
[2019-03-16] MEDS: HYDROmorphone 2 MG/ML VIAL IV PRN ×5 (10:30→13:15)
[2019-03-16] MEDS ORDERED: HYDROmorphone 2 MG/ML VIAL ONE ×2 (10:31→12:52)
[2019-03-16] MEDS ORDERED: PROCHLORPERAZINE 10 MG/2 ML VIAL. ONE (10:38)
[2019-03-16] MEDS: ACETAMINOPHEN 325 MG TABLET. PO SCH ×3 (14:00→21:11)
[2019-03-16] MEDS: FERROUS SULFATE 325 MG TABLET. PO SCH ×2 (14:00→21:02)
[2019-03-16] MEDS: FUROSEMIDE 80 MG TABLET. PO SCH (14:00)
--- NOTE | 2019-03-16 14:47 | OP ---
DATE OF SURGERY: 03/16/2019 SURGEON: Debbie Grimm M.D. ATHLETIC SHOE DESIGNER: Savanna Otto, nurse practitioner. PREOPERATIVE DIAGNOSIS: Extensive gangrene of the patient's right very proximal open transmetatarsal amputation. POSTOPERATIVE DIAGNOSIS: Extensive gangrene of the patient's right very proximal open transmetatarsal amputation. OPERATION PERFORMED: Right [id number] closed amputation. ANESTHESIA USED: General anesthesia. BLOOD LOSS: 200 mL. INDICATIONS: The patient is a 63-year-old male with long history of vascular disease and gangrene in his feet. He has undergone a very proximal right open transmetatarsal amputation in the recent past. He has been working aggressively with wound care; however, he has developed extensive gangrene throughout the wound with tunneling on the posterior flap back towards the heel and exposure of bone. It is my recommendation to proceed with a right rzdcf-oll-[id number] amputation since we feel that this amputation site at his foot will likely never heal. He is agreeable for a right [id number]-[id number] amputation. Informed consent was obtained from the patient and the family including the risks of bleeding, infection, difficulty healing his bypass incision, requiring open wounds or further debridement and long-term wound care. DETAILS OF THE OPERATION: The patient was brought to the operating room and placed on the table in supine position. He received general anesthesia monitored throughout the case by the anesthesiologist. A tourniquet was placed on the upper thigh loosely, then the patient was prepped from the lower thigh to his ankle circumferentially. His foot was placed in an impervious stockinette with Coban and we draped him appropriately. We then used an Esmarch to exsanguinate the leg and inflated the tourniquet in the proximal thigh. We used a lower mid leg posterior flap type incision in the appropriate location. We incised the skin and subcutaneous tissue sharply, anterior and along the lateral flaps down to the lower leg. We dissected through the fascia all muscular layers with electrocautery. Medially within the wound, we identified the popliteal artery and vein. We clamped it proximally and distally and we suture ligated it with 0 silk sutures. He did have some venous bleeding from this area. We suture ligated the venous bleeding with 0 silk sutures as well. Laterally, we took down the muscular structures with electrocautery and identified the anterior tibial artery and vein and clamped it proximally and distally, divided it and suture ligated it proximally and distally. We dissected out the tibia and fibula within the wound. We used a bone elevator and elevated this up under the fascia more proximally within the wound. We used the electric saw and transected the tibia in angled fashion so it was nice and smooth with no pressure on the skin and we transected the fibula with a bone cutter proximally within the wound with a saw. We took down all the posterior structures with a large sharp blade and removed the lower leg. Areas of bleeding were suture ligated with 0 silk sutures throughout the wound bed. We let the tourniquet down. We continued to explore the wound. We ensured good hemostasis with 0 silk suture and clips throughout the wound bed until there was no further bleeding. We irrigated the open amputation site with copious amounts of saline or antibiotic irrigation. We explored the wound again, ensured good hemostasis. All vascular bundles and nerves were ligated with silk sutures. We placed a #10 flat HUSEYIN drain within the wound through a separate medial leg incision. We then closed the fascial layer with interrupted 2-0 Vicryl sutures along the entire length of the fascia for a tight closure with no spaces. We then closed the skin with running 2-0 nylon suture. The Xeroform was left over the incision. A 4 x 4 gauze, ABD pads, Kerlix wrap, and an Sarmad bandage was placed. He tolerated the surgery well with no immediate complications. Savanna Otto was scrubbed throughout the entire length of this amputation. DEBBIE GRIMM MD DR: MELODY/galen JOB#: [id number] / [id number]
[2019-03-16] MEDS: MEROPENEM 1 GM in IV NORMAL SALINE 100ML 100 ML IV SCH (16:15)
[2019-03-16] MEDS: CALCIUM ACETATE 667 MG CAPSULE PO SCH ×2 (17:00→17:14)
[2019-03-16] MEDS: SEVELAMER CARBONATE 800 MG TABLET. PO SCH ×2 (17:00→17:14)
[2019-03-16] MEDS: CARVEDILOL 3.125 MG TABLET. PO SCH (17:14)
[2019-03-16] MEDS: fentaNYL PF VIAL 100 MCG/2 ML VIAL IV PRN ×4 (17:15→23:43)
[2019-03-16] MEDS ORDERED: NON FORMULARY ITEM (Potassium Chloride 20 MEQ) PO SCH (21:00)
[2019-03-16] MEDS ORDERED: NON FORMULARY ITEM (Insulin Detemir (Levemir) 20 UNIT) SQ SCH (21:00)
--- NOTE | 2019-03-16 21:00 | NUR ---
Daya started peritoneal dialysis this evening (2100)
[2019-03-16] MEDS: POLYVINYL ALCOHOL 1.4% OPHTH SOLUTION 15ML BOTTLE. OU SCH (21:01)
[2019-03-16] MEDS: LACTOBACILLUS RHAMNOSUS GG 1 CAPSULE. PO SCH (21:01)
[2019-03-16] MEDS: DOCUSATE SODIUM 100 MG CAPSULE. PO SCH (21:02)
[2019-03-16] MEDS: ATORVASTATIN CALCIUM 10 MG TABLET. PO SCH (21:02)
[2019-03-17 03:20] VITALS: BP 115/67
[2019-03-17] MEDS: fentaNYL PF VIAL 100 MCG/2 ML VIAL IV PRN ×4 (04:07→21:30)
[2019-03-17 05:52] LABS: BASO % 0 % (0-3); EOS % 0 % (0-3); LYMPH # 0.6 x10^3/uL (1.0-4.8); LYMPH % 5 % (24-48); MEAN CORPUSCULAR HEMOGLOBIN 35 pg (25-35); MEAN CORPUSCULAR HGB CONC 32 g/dL (31-37); MEAN CORPUSCULAR VOLUME 110 fL (79-100); MONO # 1.3 x10^3/uL (0.0-1.1); MONO % 11 % (0-9); NEUT # 10.1 x10^3/uL (1.8-7.7); NEUT % 84 % (31-73); PLATELET COUNT 144 x10^3/uL (140-400); RED BLOOD COUNT 2.28 x10^6/uL (4.30-5.70); RED CELL DISTRIBUTION WIDTH 22.3 % (11.5-14.5)
[2019-03-17] MEDS: ACETAMINOPHEN 325 MG TABLET. PO SCH ×3 (06:36→21:29)
[2019-03-17] MEDS: IV NORMAL SALINE 1000ML BAG 1,000 ML IV SCH ×3 (06:39→08:39)
[2019-03-17 07:35] VITALS: BP 125/58
[2019-03-17] MEDS: POLYVINYL ALCOHOL 1.4% OPHTH SOLUTION 15ML BOTTLE. OU SCH ×2 (08:37→21:30)
[2019-03-17] MEDS: FERROUS SULFATE 325 MG TABLET. PO SCH ×3 (08:37→21:31)
[2019-03-17] MEDS: CHOLECALCIFEROL (VITAMIN D3) 1,000 UNIT TABLET PO SCH (08:37)
[2019-03-17] MEDS: CALCIUM ACETATE 667 MG CAPSULE PO SCH ×3 (08:37→16:34)
[2019-03-17] MEDS: FUROSEMIDE 80 MG TABLET. PO SCH ×2 (08:37→14:40)
[2019-03-17] MEDS: ASCORBIC ACID 500 MG TABLET PO SCH (08:38)
[2019-03-17] MEDS: FOLIC/VIT B COMP W-C (RENAL) TABLET. PO SCH (08:38)
[2019-03-17] MEDS: DOCUSATE SODIUM 100 MG CAPSULE. PO SCH ×2 (08:38→21:31)
[2019-03-17] MEDS: LACTOBACILLUS RHAMNOSUS GG 1 CAPSULE. PO SCH ×2 (08:38→21:31)
[2019-03-17] MEDS: SEVELAMER CARBONATE 800 MG TABLET. PO SCH ×3 (08:38→16:34)
[2019-03-17] MEDS: FAMOTIDINE 20 MG TABLET. PO SCH (08:38)
[2019-03-17] MEDS: CARVEDILOL 3.125 MG TABLET. PO SCH ×2 (08:38→16:34)
[2019-03-17] MEDS: ALLOPURINOL 100 MG TABLET. PO SCH (08:38)
[2019-03-17] MEDS: TAMSULOSIN 0.4 MG CAP.ER.24H. PO SCH (08:38)
[2019-03-17] MEDS ORDERED: DOCUSATE SODIUM 100 MG CAPSULE. PO SCH (09:00)
[2019-03-17] MEDS ORDERED: MEROPENEM 1000 MG IV SCH (09:00)
--- NOTE | 2019-03-17 09:09 | PDOC ---
Provider Note Provider Note Vascular S: Patient seen and examined in room. Patient complains of right stump pain. Discussed pain management with nurse, according to nurse patient's states he is allergic to oxycodone and hydrocodone. Hydrocodone was listed on his admission medications. Recommend the nurse discuss with internal medicine clarification and alternatives for pain medication. O: Awake and alert Vital signs stable, temp 99.4 Dressing dry and intact to right BKA stump site. Minimal drainage and drain. H/H: 8.0/25.0 A/P: Peripheral arterial disease, right heel gangrene. Postoperative day 1 right below knee amputation. PT/OT Social service is for discharge planning We'll consult wound care for HBO therapy to aid with healing of amputation site. Repeat CBC in am. We'll plan to remove dressing to amputation site tomorrow. DM management per AJIT HALL APRN Mar 17, 2019 09:09
--- NOTE | 2019-03-17 09:45 | NUR ---
Wound Care Assisted in transfer from pt's room, 660, to [facility] for scheduled Hyperbaric treatment. Pt transferred onto HBO cart, pt's brief changed d/t incontinence of urine and stool, and upon cleaning, noticed a small slough covered pressure ulcer on pt's coccyx, periwound pink, peeling and intact. After photographing, hydrocolloid and foam dressings applied, recommended change every 3 days and PRN when soiled. Transferred pt to [facility] at this time, where pt is under physician oversight by Dr. Guallpa. SPD called to order a P500 bed for pt's return to hospital room.
--- NOTE | 2019-03-17 10:00 | NUR ---
Pt stating pain 8/10 in R leg after the PRN fentanyl dose given. Pt confirmed his allergy to oxycodone and hydrocodone to this RN. Dr. Perez notified, he stated he does not want to increase the dosage of the fentanyl til after he is back from wound care clinic, nor add any other pain medications at this time. Will continue to monitor.
--- NOTE | 2019-03-17 10:07 | PDOC1 ---
History and Physical Date of Admission Date of Admission DATE: 03/17/19 TIME: 10:03 Identification/Chief Complaint Chief Complaint admitted from pacu for wound care, disease management post op, pain control, iv antibiotics Past Medical History Past Medical History PMH Type II DM, prior contralateral BKA, RLE PAD s/p serial revascularization interventions January 2019 with mixed success. Surgical History Left BKA Past Medical History Past Medical History: CAD, Diabetes-Type II, Hypertension, Renal Disease Past Surgical History: Coronary Bypass Surgery Additional Past Surgical Histo: back surgery, toe amputation Alcohol Use: None Drug Use: None SURGEON: Debbie Grimm M.D. ASSOCIATE DIRECTOR: Savanna Otto, nurse practitioner. PREOPERATIVE DIAGNOSIS: Extensive gangrene of the patient's right very proximal open transmetatarsal amputation. POSTOPERATIVE DIAGNOSIS: Extensive gangrene of the patient's right very proximal open transmetatarsal amputation. OPERATION PERFORMED: Right ibnhf-zfe-vtfh closed amputation. ANESTHESIA USED: General anesthesia. BLOOD LOSS: 200 mL. Cardiovascular: CAD, HTN, Hyperlipidemia, Other Pulmonary: COPD GI: GI bleed Heme/Onc: Anemia NOS Hepatobiliary: No pertinent hx Psych: No pertinent hx Musculoskeletal: Osteoarthritis Rheumatologic: Gout Renal/: Chronic renal failure Endocrine: Diabetes Past Surgical History Past Surgical History: Pacemaker, CABG, Other Family History Family History: Coronary Artery Disease Social History Smoke: No ALCOHOL: none Drugs: None Current Medications Current Medications Current Medications Ondansetron HCl (Zofran) 4 mg PRN Q6HRS PRN IV NAUSEA/VOMITING; Start 03/16/19 at 07:00; Stop 03/17/19 at 06:59; Status DC Fentanyl Citrate (Fentanyl 2ml Vial) 25 mcg PRN Q5MIN PRN IV MILD PAIN 1-3; Start 03/16/19 at 07:00; Stop 03/16/19 at 18:44; Status DC Fentanyl Citrate (Fentanyl 2ml Vial) 50 mcg PRN Q5MIN PRN IV MODERATE TO SEVERE PAIN; Start 03/16/19 at 07:00; Stop 03/16/19 at 18:44; Status DC Morphine Sulfate (Morphine Sulfate) 1 mg PRN Q10MIN PRN IV SEVERE PAIN 7-10; Start 03/16/19 at 07:00; Stop 03/16/19 at 18:44; Status DC Ringer's Solution 1,000 ml @ 30 mls/hr Q24H IV ; Start 03/16/19 at 07:00; Stop 03/16/19 at 18:59; Status DC Lidocaine HCl (Xylocaine-Mpf 1% 2ml Vial) 2 ml PRN 1X PRN ID IV START; Start 03/16/19 at 07:00; Stop 03/17/19 at 06:59; Status DC Hydromorphone HCl (Dilaudid) 0.5 mg PRN Q10MIN PRN IV SEV PAIN, Second choice Last administered on 03/16/19at 13:15; Start 03/16/19 at 07:00; Stop 03/16/19 at 18:44; Status DC Prochlorperazine Edisylate (Compazine) 5 mg PACU PRN PRN IV NAUSEA, MRX1 Last administered on 03/16/19at 10:40; Start 03/16/19 at 07:00; Stop 03/17/19 at 06:59; Status DC Bacitracin 28401 unit/Sodium Chloride 500 ml @ 500 mls/hr 1X ONCE IRR ; Start 03/16/19 at 06:00; Stop 03/16/19 at 06:59; Status DC Cefazolin Sodium/ Dextrose 50 ml @ 100 mls/hr 1X PREOP PRN IV PRIOR TO PROCEDURE; Start 03/16/19 at 06:00; Stop 03/16/19 at 18:00; Status DC Sodium Chloride 1,000 ml @ 75 mls/hr [id number] IV Last administered on 03/16/19at 08:08; Start 03/16/19 at 08:15 Insulin Human Lispro (HumaLOG VIAL for OP,RR ONLY) 0-10 units PRN Q1HR PRN SQ PER PROTOCOL; Start 03/16/19 at 08:15; Stop 03/17/19 at 08:14; Status DC Fentanyl Citrate (Fentanyl 2ml Vial) 100 mcg STK-MED ONCE .ROUTE ; Start 03/16/19 at 08:24; Stop 03/16/19 at 08:25; Status DC Propofol 20 ml @ As Directed STK-MED ONCE IV ; Start 03/16/19 at 08:24; Stop 03/16/19 at 08:25; Status DC Lidocaine HCl (Lidocaine Pf 2% Vial) 5 ml STK-MED ONCE .ROUTE ; Start 03/16/19 at 08:24; Stop 03/16/19 at 08:25; Status DC Dexamethasone Sodium Phosphate (Decadron) 4 mg STK-MED ONCE .ROUTE ; Start 03/16/19 at 08:24; Stop 03/16/19 at 08:25; Status DC Ondansetron HCl (Zofran) 4 mg STK-MED ONCE .ROUTE ; Start 03/16/19 at 08:24; Stop 03/16/19 at 08:25; Status DC Al Hydroxide/Mg Hydroxide (Mylanta Plus Xs) 30 ml PRN Q3HRS PRN PO HEARTBURN / GAS; Start 03/16/19 at 09:00 Calcium Carbonate/ Glycine (Tums) 500 mg PRN Q3HRS PRN PO INDIGESTION; Start 03/16/19 at 09:00 Naloxone HCl (Narcan) 0.1 mg PRN Q2MIN PRN IV ADMIN; Start 03/16/19 at 09:00 Sodium Chloride (Normal Saline Flush) 3 ml QSHIFT PRN IV AFTER MEDS AND BLOOD DRAWS; Start 03/16/19 at 09:00 Sodium Chloride 1,000 ml @ 50 mls/hr Q20H IV Last administered on 03/17/19at 06:39; Start 03/16/19 at 08:52 Oxycodone/ Acetaminophen (Percocet 5/325) 1 tab PRN Q4HRS PRN PO MILD PAIN, 1ST CHOICE; Start 03/16/19 at 09:00 Oxycodone/ Acetaminophen (Percocet 5/325) 2 tab PRN Q4HRS PRN PO MODERATE PAIN, SEVERE PAIN; Start 03/16/19 at 09:00 Acetaminophen (Tylenol) 650 mg Q8HRS PO Last administered on 03/17/19at 06:36; Start 03/16/19 at 14:00 Morphine Sulfate (Morphine Sulfate) 2 mg PRN Q1HR PRN IV PAIN; Start 03/16/19 at 09:00; Status Cancel Naloxone HCl (Narcan) 0.4 mg PRN Q2MIN PRN IV SEE INSTRUCTIONS; Start 03/16/19 at 09:00 Sodium Chloride 1,000 ml @ 25 mls/hr Q24H IV ; Start 03/16/19 at 08:52 Docusate Sodium (Colace) 100 mg BID PO Last administered on 03/17/19at 08:38; Start 03/16/19 at 21:00 Ondansetron HCl (Zofran) 4 mg PRN Q6HRS PRN IV NAUESA, 1ST CHOICE; Start 03/16/19 at 09:00 Prochlorperazine Edisylate (Compazine) 5 mg PRN Q6HRS PRN IV N/V, 2nd Choice, MR X1; Start 03/16/19 at 09:00 Ephedrine Sulfate (ePHEDrine PF IN SALINE SYRINGE) 50 mg STK-MED ONCE IV ; Start 03/16/19 at 09:02; Stop 03/16/19 at 09:03; Status DC Phenylephrine HCl (PHENYLEPHRINE in 0.9% NACL PF) 1 mg STK-MED ONCE IV ; Start 03/16/19 at 09:02; Stop 03/16/19 at 09:03; Status DC Vasopressin (Vasostrict) 20 unit STK-MED ONCE .ROUTE ; Start 03/16/19 at 09:04; Stop 03/16/19 at 09:05; Status DC Allopurinol (Zyloprim) 100 mg DAILY PO Last administered on 03/17/19at 08:38; Start 03/17/19 at 09:00 Ascorbic Acid (Vitamin C) 500 mg DAILY PO Last administered on 03/17/19at 08:38; Start 03/17/19 at 09:00 Atorvastatin Calcium (Lipitor) 10 mg HS PO Last administered on 03/16/19at 21:02; Start 03/16/19 at 21:00 Carvedilol (Coreg) 3.125 mg BIDWMEALS PO Last administered on 03/17/19at 08:38; Start 03/16/19 at 17:00 Vitamin D (Vitamin D3) 1,000 unit DAILY PO Last administered on 03/17/19at 08:37; Start 03/17/19 at 09:00 Diphenhydramine HCl (Benadryl) 25 mg PRN BID PRN PO ITCHING; Start 03/16/19 at 10:30 Docusate Sodium (Colace) 100 mg DAILY PO ; Start 03/17/19 at 09:00; Status UNV Famotidine (Pepcid) 20 mg QODAY PO Last administered on 03/17/19at 08:38; Start 03/17/19 at 09:00 Ferrous Sulfate (Feosol) 325 mg TID PO Last administered on 03/17/19 08:37; Start 03/16/19 at 14:00 Vitamin B Complex/ Vitamin C (Richelle-Harsha) 1 tab DAILY PO Last administered on 03/17/19 08:38; Start 03/17/19 at 09:00 Furosemide (Lasix) 80 mg BID92 PO Last administered on 03/17/19 08:37; Start 03/16/19 at 14:00 Ondansetron HCl (Zofran Odt) 4 mg BID PRN PO NAUSEA/VOMITING; Start 03/16/19 at 10:30 Sevelamer Carbonate (Renvela) 800 mg TIDWMEALS PO Last administered on 03/17/19 08:38; Start 03/16/19 at 17:00 Tamsulosin HCl (Flomax) 0.4 mg DAILY PO Last administered on 03/17/19 08:38; Start 03/17/19 at 09:00 Zolpidem Tartrate (Ambien) 5 mg PRN QHS PRN PO INSOMNIA Last administered on 03/16/19 21:02; Start 03/16/19 at 10:30 Calcium Acetate (Phoslo) 1,334 mg TIDWMEALS PO Last administered on 03/17/19 08:37; Start 03/16/19 at 17:00 Artificial Tears (Artificial Tears) 1 drop BID OU Last administered on 03/17/19 08:37; Start 03/16/19 at 21:00 Non-Formulary Medication (Insulin Detemir (Levemir)) 20 unit HS SQ ; Start 03/16/19 at 21:00; Status UNV Lactobacillus Rhamnosus (Culturelle) 1 cap BID PO Last administered on 03/17/19 08:38; Start 03/16/19 at 21:00 Non-Formulary Medication (Meropenem ) 1,000 mg DAILY IV ; Start 03/17/19 at 09:00; Status UNV Polyethylene Glycol (miraLAX PACKET) 17 gm PRN DAILY PRN PO CONSTIPATION; Start 03/16/19 at 09:00 Non-Formulary Medication (Potassium Chloride ) 20 meq BID PO ; Start 03/16/19 at 21:00; Status UNV Hydromorphone HCl (Dilaudid) 2 mg STK-MED ONCE .ROUTE ; Start 03/16/19 at 10:31; Stop 03/16/19 at 10:32; Status DC Prochlorperazine Edisylate (Compazine) 10 mg STK-MED ONCE .ROUTE ; Start 03/16/19 at 10:38; Stop 03/16/19 at 12:30; Status DC Fentanyl Citrate (Fentanyl 2ml Vial) 50 mcg PRN Q2HRS PRN IV PAIN Last administered on 03/17/19at 08:37; Start 03/16/19 at 12:45 Hydromorphone HCl (Dilaudid) 2 mg STK-MED ONCE .ROUTE ; Start 03/16/19 at 12:52; Stop 03/16/19 at 12:53; Status DC Meropenem 1 gm/ Sodium Chloride 100 ml @ 200 mls/hr Q24H IV Last administered on 03/16/19at 16:15; Start 03/16/19 at 16:00 Active Scripts Active Ambien (Zolpidem Tartrate) 5 Mg Tablet 5 Mg PO PRN QHS PRN Vitamin C (Ascorbic Acid) 500 Mg Tablet 500 Mg PO DAILY Hydrocodone-Apap 5-325 (Hydrocodone Bit/Acetaminophen) 1 Tab Tablet 2 Tab PO PRN Q4HRS PRN Carvedilol (Carvedilol) 3.125 Mg Tablet 3.125 Mg PO BIDWMEALS Reported Colace (Docusate Sodium) 100 Mg Capsule 100 Mg PO DAILY Polyethylene Glycol 3350 2,500 Gm Powder 2,500 Gm MC PRN DAILY PRN Famotidine 20 Mg Tablet 20 Mg PO DAILY Renvela (Sevelamer Carbonate) 800 Mg Tablet 800 Mg PO TIDWMEALS Benadryl (Diphenhydramine Hcl) 25 Mg Capsule 25 Mg PO PRN BID PRN Ondansetron Odt (Ondansetron) 4 Mg Tab.rapdis 4 Mg PO BID PRN Heparin Sodium (Heparin Sodium,Porcine) 5,000 Unit/1 Ml Cartridge 5,000 Unit SQ Q12HR Digestive Probiotic (Lactobacillus Acidophilus) 1 Each Capsule 2 Each PO BID Ferrous Sulfate 325 Mg Tablet 325 Mg PO TID Atorvastatin Calcium 10 Mg Tablet 10 Mg PO HS Novolog (Insulin Aspart) 100 Unit/1 Ml Cartridge 0 SQ PRN BFRMEAL PRN Artificial Tears Eye Drops (Dextran 70/Hypromellose) 15 Ml Drops 1 Ml OP BID Richelle-Harsha Tablet (Folic Acid/Vitamin B Comp W-C) 0.8 Mg Tablet 0.8 Mg PO DAILY Meropenem 500 Mg Vial 1,000 Mg IV DAILY Tylenol (Acetaminophen) 325 Mg Tablet 325 Mg PO PRN 3-4XDAILY PRN Vitamin D3 (Cholecalciferol (Vitamin D3)) 1,000 Unit Tablet 1 Tab PO DAILY Potassium Chloride 20 Meq Tablet.er 20 Meq PO BID Calcium Acetate 667 Mg Tablet 1,334 Mg PO TIDWMEALS Furosemide 80 Mg Tablet 80 Mg PO BID Tamsulosin Hcl 0.4 Mg Cap.er.24h 1 Cap PO DAILY Allopurinol 100 Mg Tablet 1 Tab PO DAILY Levemir (Insulin Detemir) 100 Unit/1 Ml Vial 20 Unit SQ HS Allergies Allergies: Coded Allergies: Penicillins (Verified Allergy, Severe, HIVES AND ITCHING., 03/16/19) HAS TOLERATED AMOXICILLIN, ZOSYN zinc (Verified Allergy, Severe, HIVES AND ITCHING, 03/16/19) Latex, Natural Rubber (Verified Allergy, Intermediate, FOREMAN AND IRRITATES SKIN, 03/16/19) adhesive (Verified Allergy, Intermediate, FOREMAN AND IRRITATES SKIN, 03/16/19) PAPER TAPE IS OK amlodipine (Verified Allergy, Intermediate, 03/16/19) capsaicin (Verified Allergy, Intermediate, 03/16/19) hydrocodone (Verified Allergy, Intermediate, Anxiety, 03/16/19) insulin glargine (Verified Allergy, Intermediate, 03/16/19) reports that it has zinc in it oxycodone (Verified Allergy, Intermediate, Anxiety, 03/16/19) clindamycin (Verified Allergy, Unknown, Unknown, 03/16/19) ROS Review of System Ears/Nose/Throat: Yes: no symptom reported Eyes: Yes: no symptom reported Pulmonary: Yes no symptom reported Gastrointestional: Yes: constipation Genitourinary: Yes: no symptom reported Musculoskeletal: Yes: joint pain, muscle pain, muscle stiffness Skin: Yes no symptom reported Psychiatric/Neurological: Yes: no symptom reported Endocrine: Yes: no symptom reported General: YES: Fatigue PSYCHOLOGICAL ROS: No: Anxiety, Behavioral Disorder, Concentration difficultie, Decreased libido, Depression, Disorientation, Hallucinations, Hostility, Irritablity, Memory difficulties, Mood Swings, Obsessive thoughts, Physical abuse, Sexual abuse, Sleep disturbances, Suicidal ideation, Other ALLERGY AND IMMUNOLOGY: No: Hives, Insect Bite Sensitivity, Itchy/Watery Eyes, Nasal Congestion, Post Nasal Drip, Seasonal Allergies, Other Breast: No New/Changing Breast Lumps, No Nipple changes, No Nipple discharge, No Other Respiratory: No: Cough, Hemoptysis, Orthopnea, Pleuritic Pain, Shortness of breath, SOB with excertion, Sputum Changes, Stridor, Tachypnea, Wheezing, Other Gastrointestinal: No Nausea, No Vomiting, No Abdominal Pain, No Diarrhea, No Constipation, No Melena, No Hematochezia, No Other Musculoskeletal: Yes Joint Stiffness Neurological: Yes Gait Disturbance Physical Exam Physical Exam HENT: Normocephalic, atraumatic, bilateral external ears normal, oropharynx dry. [] Eyes: PERRLA, conjunctiva normal, white crusty discharge present Neck: Normal range of motion, no tenderness Cardiovascular:Heart rhythm regular. Rate variable. Lungs & Thorax: Breath sounds diminished Well healed midline scar presumably from CABG. Well healed scar over protrusion on R side of chest, presumably d/t pacemaker Abdomen: Bowel sounds normal, peritoneal dialysis catheter in place, scattered ecchymosis Skin: incision site clean and dry dressing intact General: Alert, Oriented X3, Cooperative, mild distress HEENT: Atraumatic, Mucous membr. moist/pink Lungs: Clear to auscultation Heart: RRR Breasts: Not examined Abdomen: Normal bowel sounds, Soft, No tenderness Rectal Exam: not examined PELVIC: Examination not indicated Extremities: No cyanosis Neuro: Normal speech, Cranial nerves 3-12 NL Psych/Mental Status: Mood NL Vitals Vitals Vital Signs Date Time Temp Pulse Resp B/P (MAP) Pulse Ox O2 Delivery O2 Flow Rate FiO2 03/17/19 08:38 97 125/58 03/17/19 08:00 Room Air 03/17/19 07:35 98.4 20 98 2.0 98.4 Labs Labs Laboratory Tests Test 03/16/19 07:47 03/16/19 08:05 03/16/19 10:59 03/16/19 14:29 White Blood Count 9.9 x10^3/uL (4.0-11.0) Red Blood Count 2.45 x10^6/uL (4.30-5.70) Hemoglobin 8.8 g/dL (13.0-17.5) Hematocrit 27.0 % (39.0-53.0) Mean Corpuscular Volume 110 fL (79-100) Mean Corpuscular Hemoglobin 36 pg (25-35) Mean Corpuscular Hemoglobin Concent 33 g/dL (31-37) Red Cell Distribution Width 22.6 % (11.5-14.5) Platelet Count 127 x10^3/uL (140-400) Neutrophils (%) (Auto) 79 % (31-73) Lymphocytes (%) (Auto) 6 % (24-48) Monocytes (%) (Auto) 12 % (0-9) Eosinophils (%) (Auto) 3 % (0-3) Basophils (%) (Auto) 0 % (0-3) Neutrophils # (Auto) 7.8 x10^3/uL (1.8-7.7) Lymphocytes # (Auto) 0.6 x10^3/uL (1.0-4.8) Monocytes # (Auto) 1.2 x10^3/uL (0.0-1.1) Eosinophils # (Auto) 0.3 x10^3/uL (0.0-0.7) Basophils # (Auto) 0.0 x10^3/uL (0.0-0.2) Platelet Estimate Decreased (ADEQUATE) Polychromasia Occasional Anisocytosis Mod Macrocytosis Present Tear Drop Cells Occ Prothrombin Time 14.7 SEC (11.7-14.0) Prothromb Time International Ratio 1.2 (0.8-1.1) Activated Partial Thromboplast Time 35 SEC (24-38) Sodium Level 136 mmol/L (136-145) Potassium Level 5.5 mmol/L (3.5-5.1) Chloride Level 96 mmol/L (98-107) Carbon Dioxide Level 27 mmol/L (21-32) Anion Gap 13 (6-14) Blood Urea Nitrogen 90 mg/dL (8-26) Creatinine 12.5 mg/dL (0.7-1.3) Estimated GFR (Cockcroft-Gault) 4.1 Glucose Level 167 mg/dL (70-99) Calcium Level 9.1 mg/dL (8.5-10.1) Glucose (Fingerstick) 135 mg/dL (70-99) 165 mg/dL (70-99) 226 mg/dL (70-99) Test 03/16/19 19:49 03/17/19 05:20 03/17/19 07:54 Glucose (Fingerstick) 215 mg/dL (70-99) 230 mg/dL (70-99) White Blood Count 12.0 x10^3/uL (4.0-11.0) Red Blood Count 2.28 x10^6/uL (4.30-5.70) Hemoglobin 8.0 g/dL (13.0-17.5) Hematocrit 25.0 % (39.0-53.0) Mean Corpuscular Volume 110 fL (79-100) Mean Corpuscular Hemoglobin 35 pg (25-35) Mean Corpuscular Hemoglobin Concent 32 g/dL (31-37) Red Cell Distribution Width 22.3 % (11.5-14.5) Platelet Count 144 x10^3/uL (140-400) Neutrophils (%) (Auto) 84 % (31-73) Lymphocytes (%) (Auto) 5 % (24-48) Monocytes (%) (Auto) 11 % (0-9) Eosinophils (%) (Auto) 0 % (0-3) Basophils (%) (Auto) 0 % (0-3) Neutrophils # (Auto) 10.1 x10^3/uL (1.8-7.7) Lymphocytes # (Auto) 0.6 x10^3/uL (1.0-4.8) Monocytes # (Auto) 1.3 x10^3/uL (0.0-1.1) Eosinophils # (Auto) 0.0 x10^3/uL (0.0-0.7) Basophils # (Auto) 0.0 x10^3/uL (0.0-0.2) Laboratory Tests Test 03/16/19 10:59 03/16/19 14:29 03/16/19 19:49 03/17/19 05:20 Glucose (Fingerstick) 165 mg/dL (70-99) 226 mg/dL (70-99) 215 mg/dL (70-99) White Blood Count 12.0 x10^3/uL (4.0-11.0) Red Blood Count 2.28 x10^6/uL (4.30-5.70) Hemoglobin 8.0 g/dL (13.0-17.5) Hematocrit 25.0 % (39.0-53.0) Mean Corpuscular Volume 110 fL (79-100) Mean Corpuscular Hemoglobin 35 pg (25-35) Mean Corpuscular Hemoglobin Concent 32 g/dL (31-37) Red Cell Distribution Width 22.3 % (11.5-14.5) Platelet Count 144 x10^3/uL (140-400) Neutrophils (%) (Auto) 84 % (31-73) Lymphocytes (%) (Auto) 5 % (24-48) Monocytes (%) (Auto) 11 % (0-9) Eosinophils (%) (Auto) 0 % (0-3) Basophils (%) (Auto) 0 % (0-3) Neutrophils # (Auto) 10.1 x10^3/uL (1.8-7.7) Lymphocytes # (Auto) 0.6 x10^3/uL (1.0-4.8) Monocytes # (Auto) 1.3 x10^3/uL (0.0-1.1) Eosinophils # (Auto) 0.0 x10^3/uL (0.0-0.7) Basophils # (Auto) 0.0 x10^3/uL (0.0-0.2) Test 03/17/19 07:54 Glucose (Fingerstick) 230 mg/dL (70-99) Images Images SEX: M EXAM STATUS: ADM IN ORD. PHYSICIAN: DEBBIE GRIMM MD REASON: PVD, ulcers PROCEDURE: DUPLEX LOWER EX ARTERIAL RIGHT EXAM: Right lower extremity arterial Doppler. HISTORY: Peripheral vascular disease. Nonhealing portion of the ulcers. COMPARISON: None. FINDINGS: Grayscale and Doppler analysis of the right lower extremity arterial system was performed. There are monophasic waveforms from the common femoral artery through the dorsalis pedis artery. Waveforms are biphasic in the deep femoral artery, suggesting collateralization. The proximal anterior tibial artery is not visualized and may be occluded. The dorsalis pedis artery is patent with postobstructive flow. There are no focally elevated velocities. IMPRESSION: 1. Findings consistent with significantly flow-limiting stenosis proximal to the right common femoral artery. 2. Occlusion of the right proximal anterior tibial artery with reconstitution of the dorsalis pedis artery. Electronically signed by: Michael Jett MD (01/27/2019 3:53 PM) [facility] DICTATED and SIGNED BY: RADHA JETT MD DATE: 01/27/19 1554 VTE Prophylaxis Ordered VTE Prophylaxis Devices: No VTE Pharmacological Prophylaxi: Yes Assessment/Plan Assessment/Plan impression Extensive gangrene of the patient's right very proximal open transmetatarsal amputation. Right qdgul-oau-ezvy closed amputation. ESRD, on PD DM2, on insulin peripheral vascular disease, flow-limiting stenosis proximal to the right common femoral artery. Occlusion of the right proximal anterior tibial artery with reconstitution of the dorsalis pedis artery. obesity, prior HD, ESRD on PD Anemia ESRD DM insulin req PAD s/p Intervention CAD plan admit post op wound long-term meds pain control iv merem bid ID CONSULT accuchecks 78 min pt exam, chart review, > 50% of time spent with exam, chart review, pt care coordination KRYSTAL MARTINEZ MD Mar 17, 2019 10:07
--- NOTE | 2019-03-17 10:09 | PDOC ---
Renal-Progress Notes Subjective Notes Notes TIRED History of Present Illness Hx of present illness STABLE Vitals Vitals Vital Signs Date Time Temp Pulse Resp B/P (MAP) Pulse Ox O2 Delivery O2 Flow Rate FiO2 03/17/19 08:38 97 125/58 03/17/19 08:00 Room Air 03/17/19 07:35 98.4 20 98 2.0 98.4 Weight Weight [ ] I.O. Intake and Output Intake and Output 03/17/19 07:00 Intake Total 1340 ml Output Total 260 ml Balance 1080 ml Intake Oral 690 ml IV Total 650 ml Output Drainage Total 60 ml Estimated Blood Loss 200 ml Labs Labs Laboratory Tests Test 03/16/19 10:59 03/16/19 14:29 03/16/19 19:49 03/17/19 05:20 Glucose (Fingerstick) 165 mg/dL (70-99) 226 mg/dL (70-99) 215 mg/dL (70-99) White Blood Count 12.0 x10^3/uL (4.0-11.0) Red Blood Count 2.28 x10^6/uL (4.30-5.70) Hemoglobin 8.0 g/dL (13.0-17.5) Hematocrit 25.0 % (39.0-53.0) Mean Corpuscular Volume 110 fL (79-100) Mean Corpuscular Hemoglobin 35 pg (25-35) Mean Corpuscular Hemoglobin Concent 32 g/dL (31-37) Red Cell Distribution Width 22.3 % (11.5-14.5) Platelet Count 144 x10^3/uL (140-400) Neutrophils (%) (Auto) 84 % (31-73) Lymphocytes (%) (Auto) 5 % (24-48) Monocytes (%) (Auto) 11 % (0-9) Eosinophils (%) (Auto) 0 % (0-3) Basophils (%) (Auto) 0 % (0-3) Neutrophils # (Auto) 10.1 x10^3/uL (1.8-7.7) Lymphocytes # (Auto) 0.6 x10^3/uL (1.0-4.8) Monocytes # (Auto) 1.3 x10^3/uL (0.0-1.1) Eosinophils # (Auto) 0.0 x10^3/uL (0.0-0.7) Basophils # (Auto) 0.0 x10^3/uL (0.0-0.2) Test 03/17/19 07:54 Glucose (Fingerstick) 230 mg/dL (70-99) Review of Systems Constitutional: yes: malaise, weakness, alert, oriented Ears/Nose/Throat: Yes: no symptom reported Eyes: Yes: no symptom reported Pulmonary: Yes no symptom reported Gastrointestional: Yes: constipation Genitourinary: Yes: no symptom reported Musculoskeletal: Yes: joint pain, muscle pain, muscle stiffness Skin: Yes no symptom reported Psychiatric/Neurological: Yes: no symptom reported Endocrine: Yes: no symptom reported Physical Exam General Appearance: no apparent distress Skin: warm Respiratory: bilateral CTA Heart: S1S2 Abdomen: soft, bowel sounds present Neurology: alert Musculoskeletal: Osteoarthritis Assessment Assessment IMP ESRD DM II HTN ANEMIA S/P RIGHT BKA DECONDITIONING PLAN APD-[facility]PD [facility] ANTIBIOTICS WOUND CARE WILL FOLLOW SYED DOTY MD Mar 17, 2019 10:09
--- NOTE | 2019-03-17 10:30 | NUR ---
Pt being transferred to room 442 after hyperbaric therapy. Notified IWONA Chan RN of this transfer and she agreed to take the patient to that room when he is done. Report called to KYLAH Bales. This RN transferred all belongings to room 442. This RN notified Rose, of the transfer.
[2019-03-17 10:37] LABS: % BANDS 2 % (0-9); % BASOS 1 % (0-3); % LYMPHS 5 % (24-48); % MONOS 6 % (0-10); % SEGS 86 % (35-66); ANISOCYTOSIS MOD; PLT ESTIMATE ADEQUATE (ADEQUATE)
--- NOTE | 2019-03-17 11:53 | NUR ---
SS following for discharge planning. SS received notification that pt was from [facility], ; fax [phone]. SS contacted [facility] and verified that pt was a resident from there facility and was able to return when medically stable for discharge.
[2019-03-17 12:00] VITALS: BP 109/60
[2019-03-17 15:00] VITALS: BP 111/55
[2019-03-17] MEDS: MEROPENEM 1 GM in IV NORMAL SALINE 100ML 100 ML IV SCH (16:34)
[2019-03-17 19:00] VITALS: BP 137/74
[2019-03-17] MEDS ORDERED: DARBEPOETIN ALFA 60 MCG/0.3 ML DISP.SYRIN. SQ SCH (21:00)
[2019-03-17] MEDS ORDERED: INSULIN GLARGINE 300 UNITS/3 ML INSULN.PEN. SQ SCH (21:00)
[2019-03-17] MEDS: ATORVASTATIN CALCIUM 10 MG TABLET. PO SCH (21:31)
[2019-03-17] MEDS: LEVEMIR INSULIN SQ SCH (21:40)
[2019-03-17 23:00] VITALS: BP 122/64
[2019-03-18] MEDS: IV NORMAL SALINE 1000ML BAG 1,000 ML IV SCH ×4 (00:15→13:35)
[2019-03-18 03:00] VITALS: BP 114/64
[2019-03-18 06:30] LABS: BASO # 0.1 x10^3/uL (0.0-0.2); BASO % 1 % (0-3); EOS # 0.1 x10^3/uL (0.0-0.7); EOS % 1 % (0-3); HEMATOCRIT 22.4 % (39.0-53.0); HEMOGLOBIN 7.4 g/dL (13.0-17.5); LYMPH # 0.5 x10^3/uL (1.0-4.8); LYMPH % 5 % (24-48); MEAN CORPUSCULAR HEMOGLOBIN 36 pg (25-35); MEAN CORPUSCULAR HGB CONC 33 g/dL (31-37); MEAN CORPUSCULAR VOLUME 109 fL (79-100); MONO % 10 % (0-9); NEUT # 8.3 x10^3/uL (1.8-7.7); NEUT % 83 % (31-73); PLATELET COUNT 115 x10^3/uL (140-400); RED BLOOD COUNT 2.06 x10^6/uL (4.30-5.70); RED CELL DISTRIBUTION WIDTH 21.3 % (11.5-14.5)
[2019-03-18 06:34] LABS: CALCIUM 8.5 mg/dL (8.5-10.1); CREATININE 11.3 mg/dL (0.7-1.3); GFR 4.6; POTASSIUM 5.2 mmol/L (3.5-5.1)
[2019-03-18 07:00] VITALS: BP 136/75
--- NOTE | 2019-03-18 08:01 | PDOC ---
PROGRESS NOTES Chief Complaint Chief Complaint Right leg PAD s/p BKA on 03/17/19 PAD with prior L BKA DM2, CAD, HTN ESRD on PD Anemia, acute History of Present Illness History of Present Illness Mr Lewis is a 63 yo M w/ PMHx DM2, HTN, CAD, PAD s/p RLE BKA, now admitted for LLE PAD and gangrene s/p BKA 03/17/19. Hb noted at 7.4 this morning. Wants his own insulin administered in house and would not like hydrocodone or oxycodone for pain. Vitals Vitals Vital Signs Date Time Temp Pulse Resp B/P (MAP) Pulse Ox O2 Delivery O2 Flow Rate FiO2 03/18/19 03:00 98.1 98 18 114/64 (81) 94 Room Air 98.1 03/17/19 07:35 2.0 Physical Exam General: Alert, Oriented X3, Cooperative, mild distress Lungs: Clear, Other Abdomen: Normal bowel sounds, Soft, No tenderness Extremities: No cyanosis Labs LABS Laboratory Tests Test 03/17/19 09:55 03/17/19 11:26 03/17/19 12:11 03/17/19 16:48 Glucose (Fingerstick) 201 mg/dL (70-99) 199 mg/dL (70-99) 197 mg/dL (70-99) 161 mg/dL (70-99) Test 03/17/19 21:08 03/18/19 05:50 03/18/19 07:39 Glucose (Fingerstick) 138 mg/dL (70-99) 195 mg/dL (70-99) White Blood Count 10.0 x10^3/uL (4.0-11.0) Red Blood Count 2.06 x10^6/uL (4.30-5.70) Hemoglobin 7.4 g/dL (13.0-17.5) Hematocrit 22.4 % (39.0-53.0) Mean Corpuscular Volume 109 fL (79-100) Mean Corpuscular Hemoglobin 36 pg (25-35) Mean Corpuscular Hemoglobin Concent 33 g/dL (31-37) Red Cell Distribution Width 21.3 % (11.5-14.5) Platelet Count 115 x10^3/uL (140-400) Neutrophils (%) (Auto) 83 % (31-73) Lymphocytes (%) (Auto) 5 % (24-48) Monocytes (%) (Auto) 10 % (0-9) Eosinophils (%) (Auto) 1 % (0-3) Basophils (%) (Auto) 1 % (0-3) Neutrophils # (Auto) 8.3 x10^3/uL (1.8-7.7) Lymphocytes # (Auto) 0.5 x10^3/uL (1.0-4.8) Monocytes # (Auto) 1.0 x10^3/uL (0.0-1.1) Eosinophils # (Auto) 0.1 x10^3/uL (0.0-0.7) Basophils # (Auto) 0.1 x10^3/uL (0.0-0.2) Sodium Level 134 mmol/L (136-145) Potassium Level 5.2 mmol/L (3.5-5.1) Chloride Level 98 mmol/L (98-107) Carbon Dioxide Level 23 mmol/L (21-32) Anion Gap 13 (6-14) Blood Urea Nitrogen 83 mg/dL (8-26) Creatinine 11.3 mg/dL (0.7-1.3) Estimated GFR (Cockcroft-Gault) 4.6 Glucose Level 201 mg/dL (70-99) Calcium Level 8.5 mg/dL (8.5-10.1) Comment Review of Relevant I have reviewed the following items den (where applicable) has been applied. Labs Laboratory Tests Test 03/16/19 08:05 03/16/19 10:59 03/16/19 14:29 03/16/19 19:49 Glucose (Fingerstick) 135 mg/dL (70-99) 165 mg/dL (70-99) 226 mg/dL (70-99) 215 mg/dL (70-99) Test 03/17/19 05:20 03/17/19 07:54 03/17/19 09:55 03/17/19 11:26 White Blood Count 12.0 x10^3/uL (4.0-11.0) Red Blood Count 2.28 x10^6/uL (4.30-5.70) Hemoglobin 8.0 g/dL (13.0-17.5) Hematocrit 25.0 % (39.0-53.0) Mean Corpuscular Volume 110 fL (79-100) Mean Corpuscular Hemoglobin 35 pg (25-35) Mean Corpuscular Hemoglobin Concent 32 g/dL (31-37) Red Cell Distribution Width 22.3 % (11.5-14.5) Platelet Count 144 x10^3/uL (140-400) Neutrophils (%) (Auto) 84 % (31-73) Lymphocytes (%) (Auto) 5 % (24-48) Monocytes (%) (Auto) 11 % (0-9) Eosinophils (%) (Auto) 0 % (0-3) Basophils (%) (Auto) 0 % (0-3) Neutrophils # (Auto) 10.1 x10^3/uL (1.8-7.7) Lymphocytes # (Auto) 0.6 x10^3/uL (1.0-4.8) Monocytes # (Auto) 1.3 x10^3/uL (0.0-1.1) Eosinophils # (Auto) 0.0 x10^3/uL (0.0-0.7) Basophils # (Auto) 0.0 x10^3/uL (0.0-0.2) Segmented Neutrophils % 86 % (35-66) Band Neutrophils % 2 % (0-9) Lymphocytes % 5 % (24-48) Monocytes % 6 % (0-10) Basophils % 1 % (0-3) Platelet Estimate Adequate (ADEQUATE) Large Platelets Present Giant Platelets Occ Anisocytosis Mod Macrocytosis Present Glucose (Fingerstick) 230 mg/dL (70-99) 201 mg/dL (70-99) 199 mg/dL (70-99) Test 03/17/19 12:11 03/17/19 16:48 03/17/19 21:08 03/18/19 05:50 Glucose (Fingerstick) 197 mg/dL (70-99) 161 mg/dL (70-99) 138 mg/dL (70-99) White Blood Count 10.0 x10^3/uL (4.0-11.0) Red Blood Count 2.06 x10^6/uL (4.30-5.70) Hemoglobin 7.4 g/dL (13.0-17.5) Hematocrit 22.4 % (39.0-53.0) Mean Corpuscular Volume 109 fL (79-100) Mean Corpuscular Hemoglobin 36 pg (25-35) Mean Corpuscular Hemoglobin Concent 33 g/dL (31-37) Red Cell Distribution Width 21.3 % (11.5-14.5) Platelet Count 115 x10^3/uL (140-400) Neutrophils (%) (Auto) 83 % (31-73) Lymphocytes (%) (Auto) 5 % (24-48) Monocytes (%) (Auto) 10 % (0-9) Eosinophils (%) (Auto) 1 % (0-3) Basophils (%) (Auto) 1 % (0-3) Neutrophils # (Auto) 8.3 x10^3/uL (1.8-7.7) Lymphocytes # (Auto) 0.5 x10^3/uL (1.0-4.8) Monocytes # (Auto) 1.0 x10^3/uL (0.0-1.1) Eosinophils # (Auto) 0.1 x10^3/uL (0.0-0.7) Basophils # (Auto) 0.1 x10^3/uL (0.0-0.2) Sodium Level 134 mmol/L (136-145) Potassium Level 5.2 mmol/L (3.5-5.1) Chloride Level 98 mmol/L (98-107) Carbon Dioxide Level 23 mmol/L (21-32) Anion Gap 13 (6-14) Blood Urea Nitrogen 83 mg/dL (8-26) Creatinine 11.3 mg/dL (0.7-1.3) Estimated GFR (Cockcroft-Gault) 4.6 Glucose Level 201 mg/dL (70-99) Calcium Level 8.5 mg/dL (8.5-10.1) Test 03/18/19 07:39 Glucose (Fingerstick) 195 mg/dL (70-99) Laboratory Tests Test 03/17/19 09:55 03/17/19 11:26 03/17/19 12:11 03/17/19 16:48 Glucose (Fingerstick) 201 mg/dL (70-99) 199 mg/dL (70-99) 197 mg/dL (70-99) 161 mg/dL (70-99) Test 03/17/19 21:08 03/18/19 05:50 03/18/19 07:39 Glucose (Fingerstick) 138 mg/dL (70-99) 195 mg/dL (70-99) White Blood Count 10.0 x10^3/uL (4.0-11.0) Red Blood Count 2.06 x10^6/uL (4.30-5.70) Hemoglobin 7.4 g/dL (13.0-17.5) Hematocrit 22.4 % (39.0-53.0) Mean Corpuscular Volume 109 fL (79-100) Mean Corpuscular Hemoglobin 36 pg (25-35) Mean Corpuscular Hemoglobin Concent 33 g/dL (31-37) Red Cell Distribution Width 21.3 % (11.5-14.5) Platelet Count 115 x10^3/uL (140-400) Neutrophils (%) (Auto) 83 % (31-73) Lymphocytes (%) (Auto) 5 % (24-48) Monocytes (%) (Auto) 10 % (0-9) Eosinophils (%) (Auto) 1 % (0-3) Basophils (%) (Auto) 1 % (0-3) Neutrophils # (Auto) 8.3 x10^3/uL (1.8-7.7) Lymphocytes # (Auto) 0.5 x10^3/uL (1.0-4.8) Monocytes # (Auto) 1.0 x10^3/uL (0.0-1.1) Eosinophils # (Auto) 0.1 x10^3/uL (0.0-0.7) Basophils # (Auto) 0.1 x10^3/uL (0.0-0.2) Sodium Level 134 mmol/L (136-145) Potassium Level 5.2 mmol/L (3.5-5.1) Chloride Level 98 mmol/L (98-107) Carbon Dioxide Level 23 mmol/L (21-32) Anion Gap 13 (6-14) Blood Urea Nitrogen 83 mg/dL (8-26) Creatinine 11.3 mg/dL (0.7-1.3) Estimated GFR (Cockcroft-Gault) 4.6 Glucose Level 201 mg/dL (70-99) Calcium Level 8.5 mg/dL (8.5-10.1) Medications Current Medications Ondansetron HCl (Zofran) 4 mg PRN Q6HRS PRN IV NAUSEA/VOMITING; Start 03/16/19 at 07:00; Stop 03/17/19 at 06:59; Status DC Fentanyl Citrate (Fentanyl 2ml Vial) 25 mcg PRN Q5MIN PRN IV MILD PAIN 1-3; Start 03/16/19 at 07:00; Stop 03/16/19 at 18:44; Status DC Fentanyl Citrate (Fentanyl 2ml Vial) 50 mcg PRN Q5MIN PRN IV MODERATE TO SEVERE PAIN; Start 03/16/19 at 07:00; Stop 03/16/19 at 18:44; Status DC Morphine Sulfate (Morphine Sulfate) 1 mg PRN Q10MIN PRN IV SEVERE PAIN 7-10; Start 03/16/19 at 07:00; Stop 03/16/19 at 18:44; Status DC Ringer's Solution 1,000 ml @ 30 mls/hr Q24H IV ; Start 03/16/19 at 07:00; Stop 03/16/19 at 18:59; Status DC Lidocaine HCl (Xylocaine-Mpf 1% 2ml Vial) 2 ml PRN 1X PRN ID IV START; Start 03/16/19 at 07:00; Stop 03/17/19 at 06:59; Status DC Hydromorphone HCl (Dilaudid) 0.5 mg PRN Q10MIN PRN IV SEV PAIN, Second choice Last administered on 03/16/19at 13:15; Start 03/16/19 at 07:00; Stop 03/16/19 at 18:44; Status DC Prochlorperazine Edisylate (Compazine) 5 mg PACU PRN PRN IV NAUSEA, MRX1 Last administered on 03/16/19at 10:40; Start 03/16/19 at 07:00; Stop 03/17/19 at 06:59; Status DC Bacitracin 30128 unit/Sodium Chloride 500 ml @ 500 mls/hr 1X ONCE IRR ; Start 03/16/19 at 06:00; Stop 03/16/19 at 06:59; Status DC Cefazolin Sodium/ Dextrose 50 ml @ 100 mls/hr 1X PREOP PRN IV PRIOR TO PROCEDURE; Start 03/16/19 at 06:00; Stop 03/16/19 at 18:00; Status DC Sodium Chloride 1,000 ml @ 75 mls/hr [id number] IV Last administered on 03/16/19at 08:08; Start 03/16/19 at 08:15 Insulin Human Lispro (HumaLOG VIAL for OP,RR ONLY) 0-10 units PRN Q1HR PRN SQ PER PROTOCOL; Start 03/16/19 at 08:15; Stop 03/17/19 at 08:14; Status DC Fentanyl Citrate (Fentanyl 2ml Vial) 100 mcg STK-MED ONCE .ROUTE ; Start 03/16/19 at 08:24; Stop 03/16/19 at 08:25; Status DC Propofol 20 ml @ As Directed STK-MED ONCE IV ; Start 03/16/19 at 08:24; Stop 03/16/19 at 08:25; Status DC Lidocaine HCl (Lidocaine Pf 2% Vial) 5 ml STK-MED ONCE .ROUTE ; Start 03/16/19 at 08:24; Stop 03/16/19 at 08:25; Status DC Dexamethasone Sodium Phosphate (Decadron) 4 mg STK-MED ONCE .ROUTE ; Start 03/16/19 at 08:24; Stop 03/16/19 at 08:25; Status DC Ondansetron HCl (Zofran) 4 mg STK-MED ONCE .ROUTE ; Start 03/16/19 at 08:24; Stop 03/16/19 at 08:25; Status DC Al Hydroxide/Mg Hydroxide (Mylanta Plus Xs) 30 ml PRN Q3HRS PRN PO HEARTBURN / GAS; Start 03/16/19 at 09:00 Calcium Carbonate/ Glycine (Tums) 500 mg PRN Q3HRS PRN PO INDIGESTION; Start 03/16/19 at 09:00 Naloxone HCl (Narcan) 0.1 mg PRN Q2MIN PRN IV ADMIN; Start 03/16/19 at 09:00 Sodium Chloride (Normal Saline Flush) 3 ml QSHIFT PRN IV AFTER MEDS AND BLOOD DRAWS; Start 03/16/19 at 09:00 Sodium Chloride 1,000 ml @ 50 mls/hr Q20H IV Last administered on 03/17/19at 06:39; Start 03/16/19 at 08:52 Oxycodone/ Acetaminophen (Percocet 5/325) 1 tab PRN Q4HRS PRN PO MILD PAIN, 1ST CHOICE; Start 03/16/19 at 09:00 Oxycodone/ Acetaminophen (Percocet 5/325) 2 tab PRN Q4HRS PRN PO MODERATE PAIN, SEVERE PAIN Last administered on 03/17/19at 12:26; Start 03/16/19 at 09:00 Acetaminophen (Tylenol) 650 mg Q8HRS PO Last administered on 03/17/19at 21:29; Start 03/16/19 at 14:00 Morphine Sulfate (Morphine Sulfate) 2 mg PRN Q1HR PRN IV PAIN; Start 03/16/19 at 09:00; Status Cancel Naloxone HCl (Narcan) 0.4 mg PRN Q2MIN PRN IV SEE INSTRUCTIONS; Start 03/16/19 at 09:00 Sodium Chloride 1,000 ml @ 25 mls/hr Q24H IV ; Start 03/16/19 at 08:52 Docusate Sodium (Colace) 100 mg BID PO Last administered on 03/17/19at 21:31; Start 03/16/19 at 21:00 Ondansetron HCl (Zofran) 4 mg PRN Q6HRS PRN IV NAUESA, 1ST CHOICE; Start 03/16/19 at 09:00 Prochlorperazine Edisylate (Compazine) 5 mg PRN Q6HRS PRN IV N/V, 2nd Choice, MR X1; Start 03/16/19 at 09:00 Ephedrine Sulfate (ePHEDrine PF IN SALINE SYRINGE) 50 mg STK-MED ONCE IV ; Start 03/16/19 at 09:02; Stop 03/16/19 at 09:03; Status DC Phenylephrine HCl (PHENYLEPHRINE in 0.9% NACL PF) 1 mg STK-MED ONCE IV ; Start 03/16/19 at 09:02; Stop 03/16/19 at 09:03; Status DC Vasopressin (Vasostrict) 20 unit STK-MED ONCE .ROUTE ; Start 03/16/19 at 09:04; Stop 03/16/19 at 09:05; Status DC Allopurinol (Zyloprim) 100 mg DAILY PO Last administered on 03/17/19at 08:38; Start 03/17/19 at 09:00 Ascorbic Acid (Vitamin C) 500 mg DAILY PO Last administered on 03/17/19 08:38; Start 03/17/19 at 09:00 Atorvastatin Calcium (Lipitor) 10 mg HS PO Last administered on 03/17/19 21:31; Start 03/16/19 at 21:00 Carvedilol (Coreg) 3.125 mg BIDWMEALS PO Last administered on 03/17/19 16:34; Start 03/16/19 at 17:00 Vitamin D (Vitamin D3) 1,000 unit DAILY PO Last administered on 03/17/19 08:37; Start 03/17/19 at 09:00 Diphenhydramine HCl (Benadryl) 25 mg PRN BID PRN PO ITCHING; Start 03/16/19 at 10:30 Docusate Sodium (Colace) 100 mg DAILY PO ; Start 03/17/19 at 09:00; Status UNV Famotidine (Pepcid) 20 mg QODAY PO Last administered on 03/17/19 08:38; Start 03/17/19 at 09:00 Ferrous Sulfate (Feosol) 325 mg TID PO Last administered on 03/17/19 21:31; Start 03/16/19 at 14:00 Vitamin B Complex/ Vitamin C (Richelle-Harsha) 1 tab DAILY PO Last administered on 03/17/19 08:38; Start 03/17/19 at 09:00 Furosemide (Lasix) 80 mg BID92 PO Last administered on 03/17/19 14:40; Start 03/16/19 at 14:00 Ondansetron HCl (Zofran Odt) 4 mg BID PRN PO NAUSEA/VOMITING; Start 03/16/19 at 10:30 Sevelamer Carbonate (Renvela) 800 mg TIDWMEALS PO Last administered on 03/17/19 16:34; Start 03/16/19 at 17:00 Tamsulosin HCl (Flomax) 0.4 mg DAILY PO Last administered on 03/17/19 08:38; Start 03/17/19 at 09:00 Zolpidem Tartrate (Ambien) 5 mg PRN QHS PRN PO INSOMNIA Last administered on 03/16/19 21:02; Start 03/16/19 at 10:30 Calcium Acetate (Phoslo) 1,334 mg TIDWMEALS PO Last administered on 03/17/19 16:34; Start 03/16/19 at 17:00 Artificial Tears (Artificial Tears) 1 drop BID OU Last administered on 03/17/19 21:30; Start 03/16/19 at 21:00 Non-Formulary Medication (Insulin Detemir (Levemir)) 20 unit HS SQ ; Start 03/16/19 at 21:00; Stop 03/17/19 at 16:57; Status DC Lactobacillus Rhamnosus (Culturelle) 1 cap BID PO Last administered on 03/17/19at 21:31; Start 03/16/19 at 21:00 Non-Formulary Medication (Meropenem ) 1,000 mg DAILY IV ; Start 03/17/19 at 09:00; Status UNV Polyethylene Glycol (miraLAX PACKET) 17 gm PRN DAILY PRN PO CONSTIPATION; Start 03/16/19 at 09:00 Non-Formulary Medication (Potassium Chloride ) 20 meq BID PO ; Start 03/16/19 at 21:00; Status UNV Hydromorphone HCl (Dilaudid) 2 mg STK-MED ONCE .ROUTE ; Start 03/16/19 at 10:31; Stop 03/16/19 at 10:32; Status DC Prochlorperazine Edisylate (Compazine) 10 mg STK-MED ONCE .ROUTE ; Start 03/16/19 at 10:38; Stop 03/16/19 at 12:30; Status DC Fentanyl Citrate (Fentanyl 2ml Vial) 50 mcg PRN Q2HRS PRN IV PAIN Last administered on 03/17/19 21:30; Start 03/16/19 at 12:45 Hydromorphone HCl (Dilaudid) 2 mg STK-MED ONCE .ROUTE ; Start 03/16/19 at 12:52; Stop 03/16/19 at 12:53; Status DC Meropenem 1 gm/ Sodium Chloride 100 ml @ 200 mls/hr Q24H IV Last administered on 03/17/19 16:34; Start 03/16/19 at 16:00 Darbepoetin Fredi (ARANESP for DIALYSIS PTS) 60 mcg WEEKLYHS SQ Last administered on 03/17/19at 21:39; Start 03/17/19 at 21:00 Cefazolin Sodium/ Dextrose (Ancef 2gm Premix) 2 gm STK-MED ONCE IV ; Start 03/16/19 at 09:00; Stop 03/17/19 at 12:12; Status DC Insulin Glargine (Lantus) 20 units QHS SQ ; Start 03/17/19 at 21:00; Stop 03/17/19 at 21:00; Status DC Non-Formulary Medication 1 ea HS SQ Last administered on 03/17/19at 21:40; Start 03/17/19 at 21:00 Active Scripts Active Ambien (Zolpidem Tartrate) 5 Mg Tablet 5 Mg PO PRN QHS PRN Vitamin C (Ascorbic Acid) 500 Mg Tablet 500 Mg PO DAILY Hydrocodone-Apap 5-325 (Hydrocodone Bit/Acetaminophen) 1 Tab Tablet 2 Tab PO PRN Q4HRS PRN Carvedilol (Carvedilol) 3.125 Mg Tablet 3.125 Mg PO BIDWMEALS Reported Colace (Docusate Sodium) 100 Mg Capsule 100 Mg PO DAILY Polyethylene Glycol 3350 2,500 Gm Powder 2,500 Gm MC PRN DAILY PRN Famotidine 20 Mg Tablet 20 Mg PO DAILY Renvela (Sevelamer Carbonate) 800 Mg Tablet 800 Mg PO TIDWMEALS Benadryl (Diphenhydramine Hcl) 25 Mg Capsule 25 Mg PO PRN BID PRN Ondansetron Odt (Ondansetron) 4 Mg Tab.rapdis 4 Mg PO BID PRN Heparin Sodium (Heparin Sodium,Porcine) 5,000 Unit/1 Ml Cartridge 5,000 Unit SQ Q12HR Digestive Probiotic (Lactobacillus Acidophilus) 1 Each Capsule 2 Each PO BID Ferrous Sulfate 325 Mg Tablet 325 Mg PO TID Atorvastatin Calcium 10 Mg Tablet 10 Mg PO HS Novolog (Insulin Aspart) 100 Unit/1 Ml Cartridge 0 SQ PRN BFRMEAL PRN Artificial Tears Eye Drops (Dextran 70/Hypromellose) 15 Ml Drops 1 Ml OP BID Richelle-Harsha Tablet (Folic Acid/Vitamin B Comp W-C) 0.8 Mg Tablet 0.8 Mg PO DAILY Meropenem 500 Mg Vial 1,000 Mg IV DAILY Tylenol (Acetaminophen) 325 Mg Tablet 325 Mg PO PRN 3-4XDAILY PRN Vitamin D3 (Cholecalciferol (Vitamin D3)) 1,000 Unit Tablet 1 Tab PO DAILY Potassium Chloride 20 Meq Tablet.er 20 Meq PO BID Calcium Acetate 667 Mg Tablet 1,334 Mg PO TIDWMEALS Furosemide 80 Mg Tablet 80 Mg PO BID Tamsulosin Hcl 0.4 Mg Cap.er.24h 1 Cap PO DAILY Allopurinol 100 Mg Tablet 1 Tab PO DAILY Levemir (Insulin Detemir) 100 Unit/1 Ml Vial 20 Unit SQ HS Vitals/I & O Vital Sign - Last 24 Hours 03/17/19 03/17/19 03/17/19 03/17/19 08:00 08:38 12:00 12:00 Temp 97.5 97.5 Pulse 97 95 Resp 18 B/P (MAP) 125/58 109/60 (76) Pulse Ox 92 O2 Delivery Room Air Room Air Room Air 03/17/19 03/17/19 03/17/19 03/17/19 15:00 16:34 19:00 20:00 Temp 98.2 98.8 98.2 98.8 Pulse 98 98 97 Resp 16 16 B/P (MAP) 111/55 (73) 111/55 137/74 (95) Pulse Ox 96 97 O2 Delivery Room Air Room Air Room Air 03/17/19 03/17/19 03/18/19 21:30 23:00 03:00 Temp 97.4 98.1 97.4 98.1 Pulse 99 98 Resp 18 16 18 B/P (MAP) 122/64 (83) 114/64 (81) Pulse Ox 98 94 O2 Delivery Room Air Room Air Room Air Intake and Output 03/17/19 03/17/19 03/18/19 14:59 22:59 06:59 Intake Total 480 ml 120 ml 175 ml Output Total 30 ml 100 ml Balance 450 ml 20 ml 175 ml CLARKE ALANIZ MD Mar 18, 2019 08:01
[2019-03-18] MEDS: CALCIUM ACETATE 667 MG CAPSULE PO SCH ×3 (08:27→17:15)
[2019-03-18] MEDS: ASCORBIC ACID 500 MG TABLET PO SCH (08:27)
[2019-03-18] MEDS: LACTOBACILLUS RHAMNOSUS GG 1 CAPSULE. PO SCH ×2 (08:27→20:49)
[2019-03-18] MEDS: POLYVINYL ALCOHOL 1.4% OPHTH SOLUTION 15ML BOTTLE. OU SCH ×2 (08:27→20:49)
[2019-03-18] MEDS: CHOLECALCIFEROL (VITAMIN D3) 1,000 UNIT TABLET PO SCH (08:27)
[2019-03-18] MEDS: ACETAMINOPHEN 325 MG TABLET. PO SCH ×3 (08:27→20:49)
[2019-03-18] MEDS: FOLIC/VIT B COMP W-C (RENAL) TABLET. PO SCH (08:27)
[2019-03-18] MEDS: TAMSULOSIN 0.4 MG CAP.ER.24H. PO SCH (08:27)
[2019-03-18] MEDS: DOCUSATE SODIUM 100 MG CAPSULE. PO SCH ×2 (08:27→20:49)
[2019-03-18] MEDS: SEVELAMER CARBONATE 800 MG TABLET. PO SCH ×3 (08:27→17:14)
[2019-03-18] MEDS: ALLOPURINOL 100 MG TABLET. PO SCH (08:28)
[2019-03-18] MEDS: FERROUS SULFATE 325 MG TABLET. PO SCH ×3 (08:28→20:49)
[2019-03-18] MEDS: FUROSEMIDE 80 MG TABLET. PO SCH ×2 (08:28→15:54)
[2019-03-18] MEDS: CARVEDILOL 3.125 MG TABLET. PO SCH ×2 (08:29→17:15)
[2019-03-18] MEDS: fentaNYL PF VIAL 100 MCG/2 ML VIAL IV PRN (08:59)
--- NOTE | 2019-03-18 10:07 | PDOC ---
Provider Note Provider Note Vascular S: Patient seen and examined in room. Patient complains of right stump pain. Receiving Oxycodone without incident. O: Awake and alert Vital signs stable, afebrile Dressing and drain removed right BKA, incision dry and intact. H/H: 7.4/22.4 A/P: Peripheral arterial disease, right heel gangrene. Postoperative day 2 right below knee amputation. Discussed plan of care with Dr. Grimm and Dr. Mackey, will continue Meropenem one more day, can discontinue at discharge. Can cancel ID consult. PT/OT, floridalma roque boot knee protector Social service is for discharge planning Repeat CBC in am. DM and pain management per AJIT HALL APRN Mar 18, 2019 10:06
[2019-03-18 11:00] VITALS: BP 161/78
--- NOTE | 2019-03-18 12:24 | PDOC ---
Renal-Progress Notes Subjective Notes Notes TIRED History of Present Illness Hx of present illness STABLE Vitals Vitals Vital Signs Date Time Temp Pulse Resp B/P (MAP) Pulse Ox O2 Delivery O2 Flow Rate FiO2 03/18/19 11:00 98.3 87 18 161/78 (105) 96 Room Air 98.3 03/17/19 07:35 2.0 Weight Weight [ ] I.O. Intake and Output Intake and Output 03/18/19 07:00 Intake Total 775 ml Output Total 130 ml Balance 645 ml Intake Oral 775 ml Output Stool Total 100 ml Drainage Total 30 ml # Voids 1 # Bowel Movements 1 Labs Labs Laboratory Tests Test 03/17/19 16:48 03/17/19 21:08 03/18/19 05:50 03/18/19 07:39 Glucose (Fingerstick) 161 mg/dL (70-99) 138 mg/dL (70-99) 195 mg/dL (70-99) White Blood Count 10.0 x10^3/uL (4.0-11.0) Red Blood Count 2.06 x10^6/uL (4.30-5.70) Hemoglobin 7.4 g/dL (13.0-17.5) Hematocrit 22.4 % (39.0-53.0) Mean Corpuscular Volume 109 fL (79-100) Mean Corpuscular Hemoglobin 36 pg (25-35) Mean Corpuscular Hemoglobin Concent 33 g/dL (31-37) Red Cell Distribution Width 21.3 % (11.5-14.5) Platelet Count 115 x10^3/uL (140-400) Neutrophils (%) (Auto) 83 % (31-73) Lymphocytes (%) (Auto) 5 % (24-48) Monocytes (%) (Auto) 10 % (0-9) Eosinophils (%) (Auto) 1 % (0-3) Basophils (%) (Auto) 1 % (0-3) Neutrophils # (Auto) 8.3 x10^3/uL (1.8-7.7) Lymphocytes # (Auto) 0.5 x10^3/uL (1.0-4.8) Monocytes # (Auto) 1.0 x10^3/uL (0.0-1.1) Eosinophils # (Auto) 0.1 x10^3/uL (0.0-0.7) Basophils # (Auto) 0.1 x10^3/uL (0.0-0.2) Sodium Level 134 mmol/L (136-145) Potassium Level 5.2 mmol/L (3.5-5.1) Chloride Level 98 mmol/L (98-107) Carbon Dioxide Level 23 mmol/L (21-32) Anion Gap 13 (6-14) Blood Urea Nitrogen 83 mg/dL (8-26) Creatinine 11.3 mg/dL (0.7-1.3) Estimated GFR (Cockcroft-Gault) 4.6 Glucose Level 201 mg/dL (70-99) Calcium Level 8.5 mg/dL (8.5-10.1) Test 03/18/19 11:55 Glucose (Fingerstick) 140 mg/dL (70-99) Review of Systems Constitutional: yes: malaise, weakness, alert, oriented Ears/Nose/Throat: Yes: no symptom reported Eyes: Yes: no symptom reported Pulmonary: Yes no symptom reported Gastrointestional: Yes: constipation Genitourinary: Yes: no symptom reported Musculoskeletal: Yes: joint pain, muscle pain, muscle stiffness Skin: Yes no symptom reported Psychiatric/Neurological: Yes: no symptom reported Endocrine: Yes: no symptom reported Physical Exam General Appearance: no apparent distress Skin: warm Respiratory: bilateral CTA Heart: S1S2 Abdomen: soft, bowel sounds present Neurology: alert Musculoskeletal: Osteoarthritis Assessment Assessment IMP ESRD DM II HTN ANEMIA S/P RIGHT BKA DECONDITIONING PLAN APD-CCPD ARANESP ANTIBIOTICS WOUND CARE CHECK IRON STORES CONT ARANESP WILL FOLLOW SYED DOTY MD Mar 18, 2019 12:24
[2019-03-18 15:00] VITALS: BP 124/63
[2019-03-18] MEDS: MEROPENEM 1 GM in IV NORMAL SALINE 100ML 100 ML IV SCH (15:53)
[2019-03-18] MEDS: INSULIN LISPRO 300 UNITS/3 ML INSULN.PEN. SQ SCH (17:00)
[2019-03-18] MEDS: HYDROmorphone 2 MG TABLET PO PRN ×2 (17:18→20:49)
[2019-03-18 19:00] VITALS: BP 124/66
[2019-03-18] MEDS: ATORVASTATIN CALCIUM 10 MG TABLET. PO SCH (20:50)
[2019-03-18] MEDS: LEVEMIR INSULIN SQ SCH (20:50)
[2019-03-18 23:00] VITALS: BP 131/64
[2019-03-19 03:00] VITALS: BP 130/65
[2019-03-19] MEDS: ACETAMINOPHEN 325 MG TABLET. PO SCH ×2 (06:05→14:40)
[2019-03-19] MEDS: CHOLECALCIFEROL (VITAMIN D3) 1,000 UNIT TABLET PO SCH (07:44)
[2019-03-19] MEDS: CALCIUM ACETATE 667 MG CAPSULE PO SCH ×3 (07:44→16:43)
[2019-03-19] MEDS: FOLIC/VIT B COMP W-C (RENAL) TABLET. PO SCH (07:44)
[2019-03-19] MEDS: SEVELAMER CARBONATE 800 MG TABLET. PO SCH ×3 (07:44→16:43)
[2019-03-19] MEDS: LACTOBACILLUS RHAMNOSUS GG 1 CAPSULE. PO SCH (07:44)
[2019-03-19 07:45] VITALS: BP 127/61
[2019-03-19] MEDS: FUROSEMIDE 80 MG TABLET. PO SCH ×2 (07:45→14:41)
[2019-03-19] MEDS: TAMSULOSIN 0.4 MG CAP.ER.24H. PO SCH (07:45)
[2019-03-19] MEDS: FAMOTIDINE 20 MG TABLET. PO SCH (07:45)
[2019-03-19] MEDS: ASCORBIC ACID 500 MG TABLET PO SCH (07:45)
[2019-03-19] MEDS: FERROUS SULFATE 325 MG TABLET. PO SCH ×2 (07:45→14:40)
[2019-03-19] MEDS: DOCUSATE SODIUM 100 MG CAPSULE. PO SCH (07:45)
[2019-03-19] MEDS: ALLOPURINOL 100 MG TABLET. PO SCH (07:45)
[2019-03-19] MEDS: POLYVINYL ALCOHOL 1.4% OPHTH SOLUTION 15ML BOTTLE. OU SCH (07:46)
[2019-03-19] MEDS: CARVEDILOL 3.125 MG TABLET. PO SCH ×2 (07:46→16:44)
[2019-03-19] MEDS: INSULIN LISPRO 300 UNITS/3 ML INSULN.PEN. SQ SCH ×2 (07:46→12:00)
[2019-03-19] MEDS: HYDROmorphone 2 MG TABLET PO PRN ×3 (07:46→16:44)
--- NOTE | 2019-03-19 08:23 | PDOC ---
PROGRESS NOTES Chief Complaint Chief Complaint Right leg PAD s/p BKA on 03/17/19 PAD with prior L BKA DM2, CAD, HTN ESRD on PD Anemia, acute History of Present Illness History of Present Illness Mr Lewis is a 63 yo M w/ PMHx DM2, HTN, CAD, PAD s/p RLE BKA, now admitted for LLE PAD and gangrene s/p BKA 03/17/19. Hb noted at 7.6 this morning. Wants his own insulin administered in house and would not like hydrocodone or oxycodone for pain. He is ready to return to [facility]. Vitals Vitals Vital Signs Date Time Temp Pulse Resp B/P (MAP) Pulse Ox O2 Delivery O2 Flow Rate FiO2 03/19/19 07:46 Room Air 03/19/19 07:46 88 127/61 03/19/19 03:00 97.9 18 96 97.9 Physical Exam General: Alert, Oriented X3, Cooperative, mild distress Lungs: Clear, Other Abdomen: Normal bowel sounds, Soft, No tenderness Extremities: No cyanosis Labs LABS Laboratory Tests Test 03/18/19 11:55 03/18/19 16:55 03/18/19 20:40 03/19/19 07:51 Glucose (Fingerstick) 140 mg/dL (70-99) 115 mg/dL (70-99) 163 mg/dL (70-99) 153 mg/dL (70-99) Assessment and Plan Assessmemt and Plan Problems Medical Problems: (1) Anemia in ESRD (end-stage renal disease) Status: Acute (2) CAD (coronary artery disease) Status: Chronic (3) DM (diabetes mellitus) Status: Chronic (4) ESRD on peritoneal dialysis Status: Acute (5) PAD (peripheral artery disease) Status: Acute Surgical Problems: (1) Amputation of right lower extremity below knee Status: Acute Comment Review of Relevant I have reviewed the following items den (where applicable) has been applied. Labs Laboratory Tests Test 03/17/19 09:55 03/17/19 11:26 03/17/19 12:11 03/17/19 16:48 Glucose (Fingerstick) 201 mg/dL (70-99) 199 mg/dL (70-99) 197 mg/dL (70-99) 161 mg/dL (70-99) Test 03/17/19 21:08 03/18/19 05:50 03/18/19 07:39 03/18/19 11:55 Glucose (Fingerstick) 138 mg/dL (70-99) 195 mg/dL (70-99) 140 mg/dL (70-99) White Blood Count 10.0 x10^3/uL (4.0-11.0) Red Blood Count 2.06 x10^6/uL (4.30-5.70) Hemoglobin 7.4 g/dL (13.0-17.5) Hematocrit 22.4 % (39.0-53.0) Mean Corpuscular Volume 109 fL (79-100) Mean Corpuscular Hemoglobin 36 pg (25-35) Mean Corpuscular Hemoglobin Concent 33 g/dL (31-37) Red Cell Distribution Width 21.3 % (11.5-14.5) Platelet Count 115 x10^3/uL (140-400) Neutrophils (%) (Auto) 83 % (31-73) Lymphocytes (%) (Auto) 5 % (24-48) Monocytes (%) (Auto) 10 % (0-9) Eosinophils (%) (Auto) 1 % (0-3) Basophils (%) (Auto) 1 % (0-3) Neutrophils # (Auto) 8.3 x10^3/uL (1.8-7.7) Lymphocytes # (Auto) 0.5 x10^3/uL (1.0-4.8) Monocytes # (Auto) 1.0 x10^3/uL (0.0-1.1) Eosinophils # (Auto) 0.1 x10^3/uL (0.0-0.7) Basophils # (Auto) 0.1 x10^3/uL (0.0-0.2) Sodium Level 134 mmol/L (136-145) Potassium Level 5.2 mmol/L (3.5-5.1) Chloride Level 98 mmol/L (98-107) Carbon Dioxide Level 23 mmol/L (21-32) Anion Gap 13 (6-14) Blood Urea Nitrogen 83 mg/dL (8-26) Creatinine 11.3 mg/dL (0.7-1.3) Estimated GFR (Cockcroft-Gault) 4.6 Glucose Level 201 mg/dL (70-99) Calcium Level 8.5 mg/dL (8.5-10.1) Test 03/18/19 16:55 03/18/19 20:40 03/19/19 07:51 Glucose (Fingerstick) 115 mg/dL (70-99) 163 mg/dL (70-99) 153 mg/dL (70-99) Laboratory Tests Test 03/18/19 11:55 03/18/19 16:55 03/18/19 20:40 03/19/19 07:51 Glucose (Fingerstick) 140 mg/dL (70-99) 115 mg/dL (70-99) 163 mg/dL (70-99) 153 mg/dL (70-99) Medications Current Medications Ondansetron HCl (Zofran) 4 mg PRN Q6HRS PRN IV NAUSEA/VOMITING; Start 03/16/19 at 07:00; Stop 03/17/19 at 06:59; Status DC Fentanyl Citrate (Fentanyl 2ml Vial) 25 mcg PRN Q5MIN PRN IV MILD PAIN 1-3; Start 03/16/19 at 07:00; Stop 03/16/19 at 18:44; Status DC Fentanyl Citrate (Fentanyl 2ml Vial) 50 mcg PRN Q5MIN PRN IV MODERATE TO SEVERE PAIN; Start 03/16/19 at 07:00; Stop 03/16/19 at 18:44; Status DC Morphine Sulfate (Morphine Sulfate) 1 mg PRN Q10MIN PRN IV SEVERE PAIN 7-10; Start 03/16/19 at 07:00; Stop 03/16/19 at 18:44; Status DC Ringer's Solution 1,000 ml @ 30 mls/hr Q24H IV ; Start 03/16/19 at 07:00; Stop 03/16/19 at 18:59; Status DC Lidocaine HCl (Xylocaine-Mpf 1% 2ml Vial) 2 ml PRN 1X PRN ID IV START; Start 03/16/19 at 07:00; Stop 03/17/19 at 06:59; Status DC Hydromorphone HCl (Dilaudid) 0.5 mg PRN Q10MIN PRN IV SEV PAIN, Second choice Last administered on 03/16/19at 13:15; Start 03/16/19 at 07:00; Stop 03/16/19 at 18:44; Status DC Prochlorperazine Edisylate (Compazine) 5 mg PACU PRN PRN IV NAUSEA, MRX1 Last administered on 03/16/19at 10:40; Start 03/16/19 at 07:00; Stop 03/17/19 at 06:59; Status DC Bacitracin 63420 unit/Sodium Chloride 500 ml @ 500 mls/hr 1X ONCE IRR ; Start 03/16/19 at 06:00; Stop 03/16/19 at 06:59; Status DC Cefazolin Sodium/ Dextrose 50 ml @ 100 mls/hr 1X PREOP PRN IV PRIOR TO PROCEDURE; Start 03/16/19 at 06:00; Stop 03/16/19 at 18:00; Status DC Sodium Chloride 1,000 ml @ 75 mls/hr [id number] IV Last administered on 03/16/19at 08:08; Start 03/16/19 at 08:15; Stop 03/18/19 at 14:42; Status DC Insulin Human Lispro (HumaLOG VIAL for OP,RR ONLY) 0-10 units PRN Q1HR PRN SQ PER PROTOCOL; Start 03/16/19 at 08:15; Stop 03/17/19 at 08:14; Status DC Fentanyl Citrate (Fentanyl 2ml Vial) 100 mcg STK-MED ONCE .ROUTE ; Start 03/16/19 at 08:24; Stop 03/16/19 at 08:25; Status DC Propofol 20 ml @ As Directed STK-MED ONCE IV ; Start 03/16/19 at 08:24; Stop 03/16/19 at 08:25; Status DC Lidocaine HCl (Lidocaine Pf 2% Vial) 5 ml STK-MED ONCE .ROUTE ; Start 03/16/19 at 08:24; Stop 03/16/19 at 08:25; Status DC Dexamethasone Sodium Phosphate (Decadron) 4 mg STK-MED ONCE .ROUTE ; Start 03/16/19 at 08:24; Stop 03/16/19 at 08:25; Status DC Ondansetron HCl (Zofran) 4 mg STK-MED ONCE .ROUTE ; Start 03/16/19 at 08:24; Stop 03/16/19 at 08:25; Status DC Al Hydroxide/Mg Hydroxide (Mylanta Plus Xs) 30 ml PRN Q3HRS PRN PO HEARTBURN / GAS; Start 03/16/19 at 09:00 Calcium Carbonate/ Glycine (Tums) 500 mg PRN Q3HRS PRN PO INDIGESTION; Start 03/16/19 at 09:00 Naloxone HCl (Narcan) 0.1 mg PRN Q2MIN PRN IV ADMIN; Start 03/16/19 at 09:00 Sodium Chloride (Normal Saline Flush) 3 ml QSHIFT PRN IV AFTER MEDS AND BLOOD DRAWS; Start 03/16/19 at 09:00 Sodium Chloride 1,000 ml @ 50 mls/hr Q20H IV Last administered on 03/17/19at 06:39; Start 03/16/19 at 08:52; Stop 03/18/19 at 14:42; Status DC Oxycodone/ Acetaminophen (Percocet 5/325) 1 tab PRN Q4HRS PRN PO MILD PAIN, 1ST CHOICE; Start 03/16/19 at 09:00; Stop 03/18/19 at 14:40; Status DC Oxycodone/ Acetaminophen (Percocet 5/325) 2 tab PRN Q4HRS PRN PO MODERATE PAIN, SEVERE PAIN Last administered on 03/17/19at 12:26; Start 03/16/19 at 09:00; Stop 03/18/19 at 14:40; Status DC Acetaminophen (Tylenol) 650 mg Q8HRS PO Last administered on 03/19/19at 06:05; Start 03/16/19 at 14:00 Morphine Sulfate (Morphine Sulfate) 2 mg PRN Q1HR PRN IV PAIN; Start 03/16/19 at 09:00; Status Cancel Naloxone HCl (Narcan) 0.4 mg PRN Q2MIN PRN IV SEE INSTRUCTIONS; Start 03/16/19 at 09:00 Sodium Chloride 1,000 ml @ 25 mls/hr Q24H IV ; Start 03/16/19 at 08:52; Stop 03/18/19 at 14:42; Status DC Docusate Sodium (Colace) 100 mg BID PO Last administered on 03/19/19at 07:45; Start 03/16/19 at 21:00 Ondansetron HCl (Zofran) 4 mg PRN Q6HRS PRN IV NAUESA, 1ST CHOICE; Start 03/16/19 at 09:00 Prochlorperazine Edisylate (Compazine) 5 mg PRN Q6HRS PRN IV N/V, 2nd Choice, MR X1; Start 03/16/19 at 09:00 Ephedrine Sulfate (ePHEDrine PF IN SALINE SYRINGE) 50 mg STK-MED ONCE IV ; Start 03/16/19 at 09:02; Stop 03/16/19 at 09:03; Status DC Phenylephrine HCl (PHENYLEPHRINE in 0.9% NACL PF) 1 mg STK-MED ONCE IV ; Start 03/16/19 at 09:02; Stop 03/16/19 at 09:03; Status DC Vasopressin (Vasostrict) 20 unit STK-MED ONCE .ROUTE ; Start 03/16/19 at 09:04; Stop 03/16/19 at 09:05; Status DC Allopurinol (Zyloprim) 100 mg DAILY PO Last administered on 03/19/19at 07:45; Start 03/17/19 at 09:00 Ascorbic Acid (Vitamin C) 500 mg DAILY PO Last administered on 03/19/19at 07:45; Start 03/17/19 at 09:00 Atorvastatin Calcium (Lipitor) 10 mg HS PO Last administered on 03/18/19at 20 :50; Start 03/16/19 at 21:00 Carvedilol (Coreg) 3.125 mg BIDWMEALS PO Last administered on 03/19/19at 07:46; Start 03/16/19 at 17:00 Vitamin D (Vitamin D3) 1,000 unit DAILY PO Last administered on 03/19/19at 07:44; Start 03/17/19 at 09:00 Diphenhydramine HCl (Benadryl) 25 mg PRN BID PRN PO ITCHING; Start 03/16/19 at 10:30 Docusate Sodium (Colace) 100 mg DAILY PO ; Start 03/17/19 at 09:00; Status UNV Famotidine (Pepcid) 20 mg QODAY PO Last administered on 03/19/19at 07:45; Start 03/17/19 at 09:00 Ferrous Sulfate (Feosol) 325 mg TID PO Last administered on 03/19/19at 07:45; Start 03/16/19 at 14:00 Vitamin B Complex/ Vitamin C (Richelle-Harsha) 1 tab DAILY PO Last administered on 03/19/19 07:44; Start 03/17/19 at 09:00 Furosemide (Lasix) 80 mg BID92 PO Last administered on 03/19/19 07:45; Start 03/16/19 at 14:00 Ondansetron HCl (Zofran Odt) 4 mg BID PRN PO NAUSEA/VOMITING; Start 03/16/19 at 10:30 Sevelamer Carbonate (Renvela) 800 mg TIDWMEALS PO Last administered on 03/19/19 07:44; Start 03/16/19 at 17:00 Tamsulosin HCl (Flomax) 0.4 mg DAILY PO Last administered on 03/19/19 07:45; Start 03/17/19 at 09:00 Zolpidem Tartrate (Ambien) 5 mg PRN QHS PRN PO INSOMNIA Last administered on 03/16/19 21:02; Start 03/16/19 at 10:30 Calcium Acetate (Phoslo) 1,334 mg TIDWMEALS PO Last administered on 03/19/19 07:44; Start 03/16/19 at 17:00 Artificial Tears (Artificial Tears) 1 drop BID OU Last administered on 03/19/19 07:46; Start 03/16/19 at 21:00 Non-Formulary Medication (Insulin Detemir (Levemir)) 20 unit HS SQ ; Start 03/16/19 at 21:00; Stop 03/17/19 at 16:57; Status DC Lactobacillus Rhamnosus (Culturelle) 1 cap BID PO Last administered on 03/19/19 07:44; Start 03/16/19 at 21:00 Non-Formulary Medication (Meropenem ) 1,000 mg DAILY IV ; Start 03/17/19 at 09:00; Status UNV Polyethylene Glycol (miraLAX PACKET) 17 gm PRN DAILY PRN PO CONSTIPATION Last administered on 03/18/19 20:49; Start 03/16/19 at 09:00 Non-Formulary Medication (Potassium Chloride ) 20 meq BID PO ; Start 03/16/19 at 21:00; Status UNV Hydromorphone HCl (Dilaudid) 2 mg STK-MED ONCE .ROUTE ; Start 03/16/19 at 10:31; Stop 03/16/19 at 10:32; Status DC Prochlorperazine Edisylate (Compazine) 10 mg STK-MED ONCE .ROUTE ; Start 03/16/19 at 10:38; Stop 03/16/19 at 12:30; Status DC Fentanyl Citrate (Fentanyl 2ml Vial) 50 mcg PRN Q2HRS PRN IV PAIN Last administered on 03/18/19at 08:59; Start 03/16/19 at 12:45 Hydromorphone HCl (Dilaudid) 2 mg STK-MED ONCE .ROUTE ; Start 03/16/19 at 12:52; Stop 03/16/19 at 12:53; Status DC Meropenem 1 gm/ Sodium Chloride 100 ml @ 200 mls/hr Q24H IV Last administered on 03/18/19at 15:53; Start 03/16/19 at 16:00 Darbepoetin Fredi (ARANESP for DIALYSIS PTS) 60 mcg WEEKLYHS SQ Last administered on 03/17/19at 21:39; Start 03/17/19 at 21:00 Cefazolin Sodium/ Dextrose (Ancef 2gm Premix) 2 gm STK-MED ONCE IV ; Start 03/16/19 at 09:00; Stop 03/17/19 at 12:12; Status DC Insulin Glargine (Lantus) 20 units QHS SQ ; Start 03/17/19 at 21:00; Stop 03/17/19 at 21:00; Status DC Non-Formulary Medication 1 ea HS SQ Last administered on 03/18/19at 20:50; Start 03/17/19 at 21:00 Insulin Human Lispro (HumaLOG) 3 units TIDWMEALS SQ ; Start 03/18/19 at 17:00 Hydromorphone HCl (Dilaudid) 2 mg PRN Q4HRS PRN PO PAIN Last administered on 03/19/19at 07:46; Start 03/18/19 at 14:45 Active Scripts Active Ambien (Zolpidem Tartrate) 5 Mg Tablet 5 Mg PO PRN QHS PRN Vitamin C (Ascorbic Acid) 500 Mg Tablet 500 Mg PO DAILY Hydrocodone-Apap 5-325 (Hydrocodone Bit/Acetaminophen) 1 Tab Tablet 2 Tab PO PRN Q4HRS PRN Carvedilol (Carvedilol) 3.125 Mg Tablet 3.125 Mg PO BIDWMEALS Reported Colace (Docusate Sodium) 100 Mg Capsule 100 Mg PO DAILY Polyethylene Glycol 3350 2,500 Gm Powder 2,500 Gm MC PRN DAILY PRN Famotidine 20 Mg Tablet 20 Mg PO DAILY Renvela (Sevelamer Carbonate) 800 Mg Tablet 800 Mg PO TIDWMEALS Benadryl (Diphenhydramine Hcl) 25 Mg Capsule 25 Mg PO PRN BID PRN Ondansetron Odt (Ondansetron) 4 Mg Tab.rapdis 4 Mg PO BID PRN Heparin Sodium (Heparin Sodium,Porcine) 5,000 Unit/1 Ml Cartridge 5,000 Unit SQ Q12HR Digestive Probiotic (Lactobacillus Acidophilus) 1 Each Capsule 2 Each PO BID Ferrous Sulfate 325 Mg Tablet 325 Mg PO TID Atorvastatin Calcium 10 Mg Tablet 10 Mg PO HS Novolog (Insulin Aspart) 100 Unit/1 Ml Cartridge 0 SQ PRN BFRMEAL PRN Artificial Tears Eye Drops (Dextran 70/Hypromellose) 15 Ml Drops 1 Ml OP BID Richelle-Harsha Tablet (Folic Acid/Vitamin B Comp W-C) 0.8 Mg Tablet 0.8 Mg PO DAILY Meropenem 500 Mg Vial 1,000 Mg IV DAILY Tylenol (Acetaminophen) 325 Mg Tablet 325 Mg PO PRN 3-4XDAILY PRN Vitamin D3 (Cholecalciferol (Vitamin D3)) 1,000 Unit Tablet 1 Tab PO DAILY Potassium Chloride 20 Meq Tablet.er 20 Meq PO BID Calcium Acetate 667 Mg Tablet 1,334 Mg PO TIDWMEALS Furosemide 80 Mg Tablet 80 Mg PO BID Tamsulosin Hcl 0.4 Mg Cap.er.24h 1 Cap PO DAILY Allopurinol 100 Mg Tablet 1 Tab PO DAILY Levemir (Insulin Detemir) 100 Unit/1 Ml Vial 20 Unit SQ HS Vitals/I & O Vital Sign - Last 24 Hours 03/18/19 03/18/19 03/18/19 03/18/19 08:29 08:59 09:30 11:00 Temp 98.3 98.3 Pulse 95 87 Resp 18 B/P (MAP) 136/75 161/78 (105) Pulse Ox 96 O2 Delivery Room Air Room Air Room Air 03/18/19 03/18/19 03/18/19 03/18/19 15:00 17:15 17:18 18:18 Temp 97.9 97.9 Pulse 96 87 Resp 18 B/P (MAP) 124/63 (83) 161/78 Pulse Ox 98 O2 Delivery Room Air Room Air Room Air 03/18/19 03/18/19 03/18/19 03/18/19 19:00 20:00 20:49 23:00 Temp 98.0 98.0 98.0 98.0 Pulse 96 96 Resp 18 18 18 B/P (MAP) 124/66 (85) 131/64 (86) Pulse Ox 91 96 O2 Delivery Room Air Room Air Room Air Room Air 03/19/19 03/19/19 03/19/19 03:00 07:46 07:46 Temp 97.9 97.9 Pulse 95 88 Resp 18 B/P (MAP) 130/65 (86) 127/61 Pulse Ox 96 O2 Delivery Room Air Room Air Intake and Output 03/18/19 03/18/19 03/19/19 14:59 22:59 06:59 Intake Total 2220 ml 120 ml Output Total 0 ml Balance 2220 ml 120 ml CLARKE ALANIZ MD Mar 19, 2019 08:23
[2019-03-19] MEDS: fentaNYL PF VIAL 100 MCG/2 ML VIAL IV PRN (08:30)
[2019-03-19 11:11] VITALS: BP 137/70
--- NOTE | 2019-03-19 11:55 | PDOC ---
PROGRESS NOTES Subjective Subjective "I about passed out from the pain in my right leg as they moved me on and off the chamber table. Please don't take my brace off right now." Objective Objective Vascular Surgery - POD#3 Right BKA O: Patient seen and examined at the bedside. Very pale. Complaining of right leg pain after moving off HBO table, having dressing changed by wound care and stump protector reapplied. Requesting pain medication. Vital signs stable, afebrile. RLE: Stump protector intact. I called and spoke with Elvis from wound care as he just performed dressing change at the end of HBO. Stated small amount of serosanguanous drainage from puncture site where HUSEYIN drain was. Otherwise, stated incision was intact, no area of tissue compromise, hematoma or drainage. Labs not obtained yet today. Patient's catheter is not patent. RN aware. H/H yesterday: .12/14.4. Assessment/Plan: 1. Peripheral arterial disease, right heel gangrene. POD#3 Right below knee amputation. Continue PT/OT, rigid stump protector. 2. Social service involved for discharge planning. Plan is for d/c back to [facility] later today. Vascular Surgery follow up already scheduled. 3. Acute on chronic anemia. Await CBC results once blood able to be drawn. May need transfusion. Patient is quite pale. 4. DM and pain management per Internal Med. Vital Signs Date Time Temp Pulse Resp B/P (MAP) Pulse Ox O2 Delivery O2 Flow Rate FiO2 03/19/19 11:11 97.8 91 16 137/70 (92) 98 Room Air 97.8 03/17/19 07:35 2.0 Intake and Output 03/19/19 06:59 Intake Total 2340 ml Output Total 0 ml Balance 2340 ml Intake Oral 240 ml IV Total 2100 ml Output Urine Total 0 ml Assessment Assessment Problems Medical Problems: (1) Anemia in ESRD (end-stage renal disease) Status: Acute (2) CAD (coronary artery disease) Status: Chronic (3) DM (diabetes mellitus) Status: Chronic (4) ESRD on peritoneal dialysis Status: Acute (5) PAD (peripheral artery disease) Status: Acute Surgical Problems: (1) Amputation of right lower extremity below knee Status: Acute Comment Review of Relevant I have reviewed the following items den (where applicable) has been applied. Labs Laboratory Tests Test 03/17/19 12:11 03/17/19 16:48 03/17/19 21:08 03/18/19 05:50 Glucose (Fingerstick) 197 mg/dL (70-99) 161 mg/dL (70-99) 138 mg/dL (70-99) White Blood Count 10.0 x10^3/uL (4.0-11.0) Red Blood Count 2.06 x10^6/uL (4.30-5.70) Hemoglobin 7.4 g/dL (13.0-17.5) Hematocrit 22.4 % (39.0-53.0) Mean Corpuscular Volume 109 fL (79-100) Mean Corpuscular Hemoglobin 36 pg (25-35) Mean Corpuscular Hemoglobin Concent 33 g/dL (31-37) Red Cell Distribution Width 21.3 % (11.5-14.5) Platelet Count 115 x10^3/uL (140-400) Neutrophils (%) (Auto) 83 % (31-73) Lymphocytes (%) (Auto) 5 % (24-48) Monocytes (%) (Auto) 10 % (0-9) Eosinophils (%) (Auto) 1 % (0-3) Basophils (%) (Auto) 1 % (0-3) Neutrophils # (Auto) 8.3 x10^3/uL (1.8-7.7) Lymphocytes # (Auto) 0.5 x10^3/uL (1.0-4.8) Monocytes # (Auto) 1.0 x10^3/uL (0.0-1.1) Eosinophils # (Auto) 0.1 x10^3/uL (0.0-0.7) Basophils # (Auto) 0.1 x10^3/uL (0.0-0.2) Sodium Level 134 mmol/L (136-145) Potassium Level 5.2 mmol/L (3.5-5.1) Chloride Level 98 mmol/L (98-107) Carbon Dioxide Level 23 mmol/L (21-32) Anion Gap 13 (6-14) Blood Urea Nitrogen 83 mg/dL (8-26) Creatinine 11.3 mg/dL (0.7-1.3) Estimated GFR (Cockcroft-Gault) 4.6 Glucose Level 201 mg/dL (70-99) Calcium Level 8.5 mg/dL (8.5-10.1) Test 03/18/19 07:39 03/18/19 11:55 03/18/19 16:55 03/18/19 20:40 Glucose (Fingerstick) 195 mg/dL (70-99) 140 mg/dL (70-99) 115 mg/dL (70-99) 163 mg/dL (70-99) Test 03/19/19 07:51 03/19/19 08:51 Glucose (Fingerstick) 153 mg/dL (70-99) 133 mg/dL (70-99) Laboratory Tests Test 03/18/19 11:55 03/18/19 16:55 03/18/19 20:40 03/19/19 07:51 Glucose (Fingerstick) 140 mg/dL (70-99) 115 mg/dL (70-99) 163 mg/dL (70-99) 153 mg/dL (70-99) Test 03/19/19 08:51 Glucose (Fingerstick) 133 mg/dL (70-99) Medications Current Medications Ondansetron HCl (Zofran) 4 mg PRN Q6HRS PRN IV NAUSEA/VOMITING; Start 03/16/19 at 07:00; Stop 03/17/19 at 06:59; Status DC Fentanyl Citrate (Fentanyl 2ml Vial) 25 mcg PRN Q5MIN PRN IV MILD PAIN 1-3; Start 03/16/19 at 07:00; Stop 03/16/19 at 18:44; Status DC Fentanyl Citrate (Fentanyl 2ml Vial) 50 mcg PRN Q5MIN PRN IV MODERATE TO SEVERE PAIN; Start 03/16/19 at 07:00; Stop 03/16/19 at 18:44; Status DC Morphine Sulfate (Morphine Sulfate) 1 mg PRN Q10MIN PRN IV SEVERE PAIN 7-10; Start 03/16/19 at 07:00; Stop 03/16/19 at 18:44; Status DC Ringer's Solution 1,000 ml @ 30 mls/hr Q24H IV ; Start 03/16/19 at 07:00; Stop 03/16/19 at 18:59; Status DC Lidocaine HCl (Xylocaine-Mpf 1% 2ml Vial) 2 ml PRN 1X PRN ID IV START; Start 03/16/19 at 07:00; Stop 03/17/19 at 06:59; Status DC Hydromorphone HCl (Dilaudid) 0.5 mg PRN Q10MIN PRN IV SEV PAIN, Second choice Last administered on 03/16/19at 13:15; Start 03/16/19 at 07:00; Stop 03/16/19 at 18:44; Status DC Prochlorperazine Edisylate (Compazine) 5 mg PACU PRN PRN IV NAUSEA, MRX1 Last administered on 03/16/19at 10:40; Start 03/16/19 at 07:00; Stop 03/17/19 at 06:59; Status DC Bacitracin 24936 unit/Sodium Chloride 500 ml @ 500 mls/hr 1X ONCE IRR ; Start 03/16/19 at 06:00; Stop 03/16/19 at 06:59; Status DC Cefazolin Sodium/ Dextrose 50 ml @ 100 mls/hr 1X PREOP PRN IV PRIOR TO PROCEDURE; Start 03/16/19 at 06:00; Stop 03/16/19 at 18:00; Status DC Sodium Chloride 1,000 ml @ 75 mls/hr [id number] IV Last administered on 03/16/19at 08:08; Start 03/16/19 at 08:15; Stop 03/18/19 at 14:42; Status DC Insulin Human Lispro (HumaLOG VIAL for OP,RR ONLY) 0-10 units PRN Q1HR PRN SQ PER PROTOCOL; Start 03/16/19 at 08:15; Stop 03/17/19 at 08:14; Status DC Fentanyl Citrate (Fentanyl 2ml Vial) 100 mcg STK-MED ONCE .ROUTE ; Start 03/16/19 at 08:24; Stop 03/16/19 at 08:25; Status DC Propofol 20 ml @ As Directed STK-MED ONCE IV ; Start 03/16/19 at 08:24; Stop 03/16/19 at 08:25; Status DC Lidocaine HCl (Lidocaine Pf 2% Vial) 5 ml STK-MED ONCE .ROUTE ; Start 03/16/19 at 08:24; Stop 03/16/19 at 08:25; Status DC Dexamethasone Sodium Phosphate (Decadron) 4 mg STK-MED ONCE .ROUTE ; Start 03/16/19 at 08:24; Stop 03/16/19 at 08:25; Status DC Ondansetron HCl (Zofran) 4 mg STK-MED ONCE .ROUTE ; Start 03/16/19 at 08:24; Stop 03/16/19 at 08:25; Status DC Al Hydroxide/Mg Hydroxide (Mylanta Plus Xs) 30 ml PRN Q3HRS PRN PO HEARTBURN / GAS; Start 03/16/19 at 09:00 Calcium Carbonate/ Glycine (Tums) 500 mg PRN Q3HRS PRN PO INDIGESTION; Start 03/16/19 at 09:00 Naloxone HCl (Narcan) 0.1 mg PRN Q2MIN PRN IV ADMIN; Start 03/16/19 at 09:00 Sodium Chloride (Normal Saline Flush) 3 ml QSHIFT PRN IV AFTER MEDS AND BLOOD DRAWS; Start 03/16/19 at 09:00 Sodium Chloride 1,000 ml @ 50 mls/hr Q20H IV Last administered on 03/17/19at 06:39; Start 03/16/19 at 08:52; Stop 03/18/19 at 14:42; Status DC Oxycodone/ Acetaminophen (Percocet 5/325) 1 tab PRN Q4HRS PRN PO MILD PAIN, 1ST CHOICE; Start 03/16/19 at 09:00; Stop 03/18/19 at 14:40; Status DC Oxycodone/ Acetaminophen (Percocet 5/325) 2 tab PRN Q4HRS PRN PO MODERATE PAIN, SEVERE PAIN Last administered on 03/17/19at 12:26; Start 03/16/19 at 09:00; Stop 03/18/19 at 14:40; Status DC Acetaminophen (Tylenol) 650 mg Q8HRS PO Last administered on 03/19/19at 06:05; Start 03/16/19 at 14:00 Morphine Sulfate (Morphine Sulfate) 2 mg PRN Q1HR PRN IV PAIN; Start 03/16/19 at 09:00; Status Cancel Naloxone HCl (Narcan) 0.4 mg PRN Q2MIN PRN IV SEE INSTRUCTIONS; Start 03/16/19 at 09:00 Sodium Chloride 1,000 ml @ 25 mls/hr Q24H IV ; Start 03/16/19 at 08:52; Stop 03/18/19 at 14:42; Status DC Docusate Sodium (Colace) 100 mg BID PO Last administered on 03/19/19at 07:45; Start 03/16/19 at 21:00 Ondansetron HCl (Zofran) 4 mg PRN Q6HRS PRN IV NAUESA, 1ST CHOICE; Start 03/16/19 at 09:00 Prochlorperazine Edisylate (Compazine) 5 mg PRN Q6HRS PRN IV N/V, 2nd Choice, MR X1; Start 03/16/19 at 09:00 Ephedrine Sulfate (ePHEDrine PF IN SALINE SYRINGE) 50 mg STK-MED ONCE IV ; Start 03/16/19 at 09:02; Stop 03/16/19 at 09:03; Status DC Phenylephrine HCl (PHENYLEPHRINE in 0.9% NACL PF) 1 mg STK-MED ONCE IV ; Start 03/16/19 at 09:02; Stop 03/16/19 at 09:03; Status DC Vasopressin (Vasostrict) 20 unit STK-MED ONCE .ROUTE ; Start 03/16/19 at 09:04; Stop 03/16/19 at 09:05; Status DC Allopurinol (Zyloprim) 100 mg DAILY PO Last administered on 03/19/19at 07:45; Start 03/17/19 at 09:00 Ascorbic Acid (Vitamin C) 500 mg DAILY PO Last administered on 03/19/19at 07:45; Start 03/17/19 at 09:00 Atorvastatin Calcium (Lipitor) 10 mg HS PO Last administered on 03/18/19at 20:50; Start 03/16/19 at 21:00 Carvedilol (Coreg) 3.125 mg BIDWMEALS PO Last administered on 03/19/19at 07:46; Start 03/16/19 at 17:00 Vitamin D (Vitamin D3) 1,000 unit DAILY PO Last administered on 03/19/19at 07:44; Start 03/17/19 at 09:00 Diphenhydramine HCl (Benadryl) 25 mg PRN BID PRN PO ITCHING; Start 03/16/19 at 10:30 Docusate Sodium (Colace) 100 mg DAILY PO ; Start 03/17/19 at 09:00; Status UNV Famotidine (Pepcid) 20 mg QODAY PO Last administered on 03/19/19 07:45; Start 03/17/19 at 09:00 Ferrous Sulfate (Feosol) 325 mg TID PO Last administered on 03/19/19 07:45; Start 03/16/19 at 14:00 Vitamin B Complex/ Vitamin C (Richelle-Harsha) 1 tab DAILY PO Last administered on 03/19/19 07:44; Start 03/17/19 at 09:00 Furosemide (Lasix) 80 mg BID92 PO Last administered on 03/19/19 07:45; Start 03/16/19 at 14:00 Ondansetron HCl (Zofran Odt) 4 mg BID PRN PO NAUSEA/VOMITING; Start 03/16/19 at 10:30 Sevelamer Carbonate (Renvela) 800 mg TIDWMEALS PO Last administered on 03/19/19 07:44; Start 03/16/19 at 17:00 Tamsulosin HCl (Flomax) 0.4 mg DAILY PO Last administered on 03/19/19 07:45; Start 03/17/19 at 09:00 Zolpidem Tartrate (Ambien) 5 mg PRN QHS PRN PO INSOMNIA Last administered on 03/16/19 21:02; Start 03/16/19 at 10:30 Calcium Acetate (Phoslo) 1,334 mg TIDWMEALS PO Last administered on 03/19/19 07:44; Start 03/16/19 at 17:00 Artificial Tears (Artificial Tears) 1 drop BID OU Last administered on 03/19/19 07:46; Start 03/16/19 at 21:00 Non-Formulary Medication (Insulin Detemir (Levemir)) 20 unit HS SQ ; Start 03/16/19 at 21:00; Stop 03/17/19 at 16:57; Status DC Lactobacillus Rhamnosus (Culturelle) 1 cap BID PO Last administered on 03/19/19 07:44; Start 03/16/19 at 21:00 Non-Formulary Medication (Meropenem ) 1,000 mg DAILY IV ; Start 03/17/19 at 09:00; Status UNV Polyethylene Glycol (miraLAX PACKET) 17 gm PRN DAILY PRN PO CONSTIPATION Last administered on 03/18/19 20:49; Start 03/16/19 at 09:00 Non-Formulary Medication (Potassium Chloride ) 20 meq BID PO ; Start 03/16/19 at 21:00; Status UNV Hydromorphone HCl (Dilaudid) 2 mg STK-MED ONCE .ROUTE ; Start 03/16/19 at 10:31; Stop 03/16/19 at 10:32; Status DC Prochlorperazine Edisylate (Compazine) 10 mg STK-MED ONCE .ROUTE ; Start 03/16/19 at 10:38; Stop 03/16/19 at 12:30; Status DC Fentanyl Citrate (Fentanyl 2ml Vial) 50 mcg PRN Q2HRS PRN IV PAIN Last administered on 03/19/19at 08:30; Start 03/16/19 at 12:45 Hydromorphone HCl (Dilaudid) 2 mg STK-MED ONCE .ROUTE ; Start 03/16/19 at 12:52; Stop 03/16/19 at 12:53; Status DC Meropenem 1 gm/ Sodium Chloride 100 ml @ 200 mls/hr Q24H IV Last administered on 03/18/19at 15:53; Start 03/16/19 at 16:00 Darbepoetin Fredi (ARANESP for DIALYSIS PTS) 60 mcg WEEKLYHS SQ Last administered on 03/17/19at 21:39; Start 03/17/19 at 21:00 Cefazolin Sodium/ Dextrose (Ancef 2gm Premix) 2 gm STK-MED ONCE IV ; Start 03/16/19 at 09:00; Stop 03/17/19 at 12:12; Status DC Insulin Glargine (Lantus) 20 units QHS SQ ; Start 03/17/19 at 21:00; Stop 03/17/19 at 21:00; Status DC Non-Formulary Medication 1 ea HS SQ Last administered on 03/18/19at 20:50; Start 03/17/19 at 21:00 Insulin Human Lispro (HumaLOG) 3 units TIDWMEALS SQ ; Start 03/18/19 at 17:00 Hydromorphone HCl (Dilaudid) 2 mg PRN Q4HRS PRN PO PAIN Last administered on 03/19/19at 07:46; Start 03/18/19 at 14:45 Active Scripts Active Ambien (Zolpidem Tartrate) 5 Mg Tablet 5 Mg PO PRN QHS PRN Vitamin C (Ascorbic Acid) 500 Mg Tablet 500 Mg PO DAILY Hydrocodone-Apap 5-325 (Hydrocodone Bit/Acetaminophen) 1 Tab Tablet 2 Tab PO PRN Q4HRS PRN Carvedilol (Carvedilol) 3.125 Mg Tablet 3.125 Mg PO BIDWMEALS Reported Colace (Docusate Sodium) 100 Mg Capsule 100 Mg PO DAILY Polyethylene Glycol 3350 2,500 Gm Powder 2,500 Gm MC PRN DAILY PRN Famotidine 20 Mg Tablet 20 Mg PO DAILY Renvela (Sevelamer Carbonate) 800 Mg Tablet 800 Mg PO TIDWMEALS Benadryl (Diphenhydramine Hcl) 25 Mg Capsule 25 Mg PO PRN BID PRN Ondansetron Odt (Ondansetron) 4 Mg Tab.rapdis 4 Mg PO BID PRN Heparin Sodium (Heparin Sodium,Porcine) 5,000 Unit/1 Ml Cartridge 5,000 Unit SQ Q12HR Digestive Probiotic (Lactobacillus Acidophilus) 1 Each Capsule 2 Each PO BID Ferrous Sulfate 325 Mg Tablet 325 Mg PO TID Atorvastatin Calcium 10 Mg Tablet 10 Mg PO HS Novolog (Insulin Aspart) 100 Unit/1 Ml Cartridge 0 SQ PRN BFRMEAL PRN Artificial Tears Eye Drops (Dextran 70/Hypromellose) 15 Ml Drops 1 Ml OP BID Richelle-Harsha Tablet (Folic Acid/Vitamin B Comp W-C) 0.8 Mg Tablet 0.8 Mg PO DAILY Meropenem 500 Mg Vial 1,000 Mg IV DAILY Tylenol (Acetaminophen) 325 Mg Tablet 325 Mg PO PRN 3-4XDAILY PRN Vitamin D3 (Cholecalciferol (Vitamin D3)) 1,000 Unit Tablet 1 Tab PO DAILY Potassium Chloride 20 Meq Tablet.er 20 Meq PO BID Calcium Acetate 667 Mg Tablet 1,334 Mg PO TIDWMEALS Furosemide 80 Mg Tablet 80 Mg PO BID Tamsulosin Hcl 0.4 Mg Cap.er.24h 1 Cap PO DAILY Allopurinol 100 Mg Tablet 1 Tab PO DAILY Levemir (Insulin Detemir) 100 Unit/1 Ml Vial 20 Unit SQ HS Vitals/I & O Vital Sign - Last 24 Hours 03/18/19 03/18/19 03/18/19 03/18/19 15:00 17:15 17:18 18:18 Temp 97.9 97.9 Pulse 96 87 Resp 18 B/P (MAP) 124/63 (83) 161/78 Pulse Ox 98 O2 Delivery Room Air Room Air Room Air 03/18/19 03/18/19 03/18/19 03/18/19 19:00 20:00 20:49 23:00 Temp 98.0 98.0 98.0 98.0 Pulse 96 96 Resp 18 18 18 B/P (MAP) 124/66 (85) 131/64 (86) Pulse Ox 91 96 O2 Delivery Room Air Room Air Room Air Room Air 03/19/19 03/19/19 03/19/19 03/19/19 03:00 07:45 07:46 07:46 Temp 97.9 98.1 97.9 98.1 Pulse 95 88 88 Resp 18 18 B/P (MAP) 130/65 (86) 127/61 (83) 127/61 Pulse Ox 96 96 O2 Delivery Room Air Room Air Room Air 03/19/19 03/19/19 03/19/19 08:00 08:30 11:11 Temp 97.8 97.8 Pulse 91 Resp 16 B/P (MAP) 137/70 (92) Pulse Ox 98 O2 Delivery Room Air Room Air Room Air Intake and Output 03/18/19 03/18/19 03/19/19 14:59 22:59 06:59 Intake Total 2220 ml 120 ml Output Total 0 ml Balance 2220 ml 120 ml NISSA MARIA APRN Mar 19, 2019 11:55
[2019-03-19] MEDS ORDERED: ALTEPLASE 1MG SYRINGE. INT CAT ONE (12:00)
--- NOTE | 2019-03-19 12:19 | PDOC ---
Renal-Progress Notes Subjective Notes Notes TIRED History of Present Illness Hx of present illness STABLE Vitals Vitals Vital Signs Date Time Temp Pulse Resp B/P (MAP) Pulse Ox O2 Delivery O2 Flow Rate FiO2 03/19/19 11:11 97.8 91 16 137/70 (92) 98 Room Air 97.8 Weight Weight [ ] I.O. Intake and Output Intake and Output 03/19/19 06:59 Intake Total 2340 ml Output Total 0 ml Balance 2340 ml Intake Oral 240 ml IV Total 2100 ml Output Urine Total 0 ml Labs Labs Laboratory Tests Test 03/18/19 16:55 03/18/19 20:40 03/19/19 07:51 03/19/19 08:51 Glucose (Fingerstick) 115 mg/dL (70-99) 163 mg/dL (70-99) 153 mg/dL (70-99) 133 mg/dL (70-99) Test 03/19/19 12:02 Glucose (Fingerstick) 147 mg/dL (70-99) Review of Systems Constitutional: yes: malaise, weakness, alert, oriented Ears/Nose/Throat: Yes: no symptom reported Eyes: Yes: no symptom reported Pulmonary: Yes no symptom reported Gastrointestional: Yes: constipation Genitourinary: Yes: no symptom reported Musculoskeletal: Yes: joint pain, muscle pain, muscle stiffness Skin: Yes no symptom reported Psychiatric/Neurological: Yes: no symptom reported Endocrine: Yes: no symptom reported Physical Exam General Appearance: no apparent distress Skin: warm Respiratory: bilateral CTA Heart: S1S2 Abdomen: soft, bowel sounds present Neurology: alert Musculoskeletal: Osteoarthritis Assessment Assessment IMP ESRD DM II HTN ANEMIA S/P RIGHT BKA DECONDITIONING PLAN APD-CCPD ARANESP ANTIBIOTICS WOUND CARE CHECK IRON STORES CONT ARANESP WILL FOLLOW SYED DOTY MD Mar 19, 2019 12:19
[2019-03-19 13:53] LABS: HEMATOCRIT 22.6 % (39.0-53.0); HEMOGLOBIN 7.6 g/dL (13.0-17.5); RED BLOOD COUNT 2.1 x10^6/uL (4.30-5.70); RED CELL DISTRIBUTION WIDTH 21.1 % (11.5-14.5); WHITE BLOOD COUNT 9.2 x10^3/uL (4.0-11.0)
[2019-03-19 14:05] LABS: CALCIUM 8.2 mg/dL (8.5-10.1); CREATININE 11.2 mg/dL (0.7-1.3); GFR 4.6
--- NOTE | 2019-03-19 14:48 | SNU/HH DC ---
DISCHARGE ORDERS DISCHARGE INFORMATION: DISCHARGE DATE: Mar 19, 2019 FINAL DIAGNOSIS Problems Medical Problems: (1) Anemia in ESRD (end-stage renal disease) Status: Acute (2) CAD (coronary artery disease) Status: Chronic (3) DM (diabetes mellitus) Status: Chronic (4) ESRD on peritoneal dialysis Status: Acute (5) PAD (peripheral artery disease) Status: Acute Surgical Problems: (1) Amputation of right lower extremity below knee Status: Acute CONDITION ON DISCHARGE: Stable CODE STATUS: Code Status: Full LTAC: ADMIT TO LTAC: Yes POST DISCHARGE ORDERS: ACTIVITY ORDERS: Activity as tolerated WEIGHT BEARING STATUS: Touch down weight bearing BATHING ORDERS: Shower-keep dressing dry, No Tub Bath until see DIET AFTER DISCHARGE: Renal WOUND/INCISION CARE: Other, see below CHECKS AFTER DISCHARGE: CHECKS AFTER DISCHARGE: Check blood press - daily, Check blood sugar, ac/hs, Check your Temp as needed, Weigh Yourself Daily FOLLOW-UP: PHYSICIAN FOLLOW-UP: NEPHROLOGY, VASCULAR SURGERY, INFECTIOUS DISEASE TREATMENT/EQUIPMENT ORDERS: ADAPTIVE EQUIPMENT NEEDED: Commode, Front wheeled walker INFUSION EQUIPMENT NEEDED: PICC Line RESPIRATORY EQUIPMENT NEEDED: Oxygen Physical Therapy For: Evalulation/Treatment Occupational Therapy For: Evaluation/Treatment Speech Language Pathology For: Evaluation/Treatment DISCHARGE MEDICATIONS: Home Meds Active Scripts Zolpidem Tartrate (AMBIEN) 5 Mg Tablet, 5 MG PO PRN QHS PRN for INSOMNIA, #20 TAB Prov:CHERELLE ABBOTT MD 02/26/19 Ascorbic Acid (VITAMIN C) 500 Mg Tablet, 500 MG PO DAILY for wound ehaling, #30 TAB Prov:CHERELLE ABBOTT MD 02/26/19 Hydrocodone Bit/Acetaminophen (HYDROCODONE-APAP 5-325 ) 1 Tab Tablet, 2 TAB PO PRN Q4HRS PRN for MODERATE PAIN, SEVERE PAIN, #30 TAB Prov:CHERELLE ABBOTT MD 02/26/19 Carvedilol (CARVEDILOL ) 3.125 Mg Tablet, 3.125 MG PO BIDWMEALS for htn, #60 TAB Prov:CHERELLE ABBOTT MD 02/26/19 Reported Medications Docusate Sodium (COLACE) 100 Mg Capsule, 100 MG PO DAILY for PREVENT CONSTIPATION, CAP 03/15/19 Polyethylene Glycol 3350 (POLYETHYLENE GLYCOL 3350) 2,500 Gm Powder, 2500 GM MC PRN DAILY PRN for CONSTIPATION, MISC 03/15/19 Famotidine (FAMOTIDINE) 20 Mg Tablet, 20 MG PO DAILY for PREVENT REFLUX, TAB 03/15/19 Sevelamer Carbonate (RENVELA) 800 Mg Tablet, 800 MG PO TIDWMEALS for PHOSPHATE BINDER, TAB 03/15/19 Diphenhydramine Hcl (BENADRYL) 25 Mg Capsule, 25 MG PO PRN BID PRN for ITCHING, CAP 03/15/19 Ondansetron (ONDANSETRON ODT) 4 Mg Tab.rapdis, 4 MG PO BID PRN for NAUSEA/VOMITING, TAB 03/15/19 Heparin Sodium,Porcine (HEPARIN SODIUM) 5,000 Unit/1 Ml Cartridge, 5000 UNIT SQ Q12HR for PREVENT BLOOD CLOTS, EACH 03/15/19 Lactobacillus Acidophilus (Digestive Probiotic) 1 Each Capsule, 2 EACH PO BID for COLON HEALTH, CAP 03/15/19 Ferrous Sulfate (FERROUS SULFATE) 325 Mg Tablet, 325 MG PO TID for ANEMIA, TAB 03/15/19 Atorvastatin Calcium (ATORVASTATIN CALCIUM) 10 Mg Tablet, 10 MG PO HS for FOR CHOLESTEROL, #30 TAB 0 Refills 03/15/19 Insulin Aspart (NOVOLOG) 100 Unit/1 Ml Cartridge, 0 SQ PRN BFRMEAL PRN for BLOOD SUGAR CONTROL, EACH 02/22/19 Dextran 70/Hypromellose (ARTIFICIAL TEARS EYE DROPS) 15 Ml Drops, 1 ML OP BID for DRY EYES, DROP 02/22/19 Folic Acid/Vitamin B Comp W-C (YADIRA-GISELL TABLET) 0.8 Mg Tablet, 0.8 MG PO DAILY for SUPPLEMENT, TAB 02/22/19 Meropenem (MEROPENEM) 500 Mg Vial, 1000 MG IV DAILY for INFECTION, EACH 02/22/19 Acetaminophen (TYLENOL) 325 Mg Tablet, 325 MG PO PRN 3-4XDAILY PRN for PAIN, TAB 02/22/19 Cholecalciferol (Vitamin D3) (VITAMIN D3) 1,000 Unit Tablet, 1 TAB PO DAILY, #30 TAB 5 Refills 07/01/17 Potassium Chloride (POTASSIUM CHLORIDE) 20 Meq Tablet.er, 20 MEQ PO BID, TAB.SR 07/01/17 Calcium Acetate (CALCIUM ACETATE) 667 Mg Tablet, 1334 MG PO TIDWMEALS for DIALYSIS PATIENTS, CAP 07/01/17 Furosemide (FUROSEMIDE) 80 Mg Tablet, 80 MG PO BID, TAB 07/01/17 Tamsulosin Hcl (TAMSULOSIN HCL) 0.4 Mg Cap.er.24h, 1 CAP PO DAILY, #30 CAP 5 Refills 05/26/17 Allopurinol (ALLOPURINOL) 100 Mg Tablet, 1 TAB PO DAILY, #90 TAB 3 Refills 05/13/17 Insulin Detemir (LEVEMIR) 100 Unit/1 Ml Vial, 20 UNIT SQ HS, VIAL 05/12/17 Discontinued Reported Medications Pantoprazole Sodium (PROTONIX) 20 Mg Tablet.dr, 40 MG PO DAILY for REFLUX CONTROL, TAB 02/22/19 [Dakins 0.125%] No Conflict Check, 1 MACKENZIE TOP BID 02/22/19 Pravastatin Sodium (PRAVASTATIN SODIUM) 10 Mg Tablet, 1 TAB PO QHS, #90 TAB 3 Refills 07/01/17 Darbepoetin Fredi In Polysorbat (ARANESP SYRINGE) 60 Mcg/0.3 Ml Disp.syrin, 60 MCG SQ WEEKLY for TO TREAT ANEMIA, SYR 0 Refills 05/13/17 Clonidine Hcl (CLONIDINE HCL) 0.2 Mg Tablet, 1 TAB PO PRN, #60 TAB 5 Refills TAKES ONLY IF HIS BLOOD PRESSURE IS ELEVATED 05/12/17 CLARKE ALANIZ MD Mar 19, 2019 14:48
--- NOTE | 2019-03-19 14:52 | PDOC3 ---
Discharge Summary Visit Information Date of Admission: Mar 16, 2019 Date of Discharge: Mar 19, 2019 Admitting Diagnosis: ESRD on PD, PAD Final Diagnosis Problems Medical Problems: (1) Anemia in ESRD (end-stage renal disease) Status: Acute (2) CAD (coronary artery disease) Status: Chronic (3) DM (diabetes mellitus) Status: Chronic (4) ESRD on peritoneal dialysis Status: Acute (5) PAD (peripheral artery disease) Status: Acute Surgical Problems: (1) Amputation of right lower extremity below knee Status: Acute Brief Hospital Course Allergies Allergies Coded Allergies Type Severity Reaction Last Updated Verified Penicillins Allergy Severe HIVES AND ITCHING. 03/16/19 Yes zinc Allergy Severe HIVES AND ITCHING 03/16/19 Yes Latex, Natural Rubber Allergy Intermediate FOREMAN AND IRRITATES SKIN 03/16/19 Yes adhesive Allergy Intermediate FOREMAN AND IRRITATES SKIN 03/16/19 Yes amlodipine Allergy Intermediate 03/16/19 Yes capsaicin Allergy Intermediate 03/16/19 Yes hydrocodone Allergy Intermediate Anxiety 03/16/19 Yes insulin glargine Allergy Intermediate 03/16/19 Yes oxycodone Allergy Intermediate Anxiety 03/16/19 Yes clindamycin Allergy Unknown Unknown 03/16/19 Yes Vital Signs Vital Signs Date Time Temp Pulse Resp B/P (MAP) Pulse Ox O2 Delivery O2 Flow Rate FiO2 03/19/19 12:59 Room Air 03/19/19 11:11 97.8 91 16 137/70 (92) 98 97.8 Lab Results Laboratory Tests Test 03/17/19 16:48 03/17/19 21:08 03/18/19 05:50 03/18/19 07:39 Glucose (Fingerstick) 161 mg/dL (70-99) 138 mg/dL (70-99) 195 mg/dL (70-99) White Blood Count 10.0 x10^3/uL (4.0-11.0) Red Blood Count 2.06 x10^6/uL (4.30-5.70) Hemoglobin 7.4 g/dL (13.0-17.5) Hematocrit 22.4 % (39.0-53.0) Mean Corpuscular Volume 109 fL (79-100) Mean Corpuscular Hemoglobin 36 pg (25-35) Mean Corpuscular Hemoglobin Concent 33 g/dL (31-37) Red Cell Distribution Width 21.3 % (11.5-14.5) Platelet Count 115 x10^3/uL (140-400) Neutrophils (%) (Auto) 83 % (31-73) Lymphocytes (%) (Auto) 5 % (24-48) Monocytes (%) (Auto) 10 % (0-9) Eosinophils (%) (Auto) 1 % (0-3) Basophils (%) (Auto) 1 % (0-3) Neutrophils # (Auto) 8.3 x10^3/uL (1.8-7.7) Lymphocytes # (Auto) 0.5 x10^3/uL (1.0-4.8) Monocytes # (Auto) 1.0 x10^3/uL (0.0-1.1) Eosinophils # (Auto) 0.1 x10^3/uL (0.0-0.7) Basophils # (Auto) 0.1 x10^3/uL (0.0-0.2) Sodium Level 134 mmol/L (136-145) Potassium Level 5.2 mmol/L (3.5-5.1) Chloride Level 98 mmol/L (98-107) Carbon Dioxide Level 23 mmol/L (21-32) Anion Gap 13 (6-14) Blood Urea Nitrogen 83 mg/dL (8-26) Creatinine 11.3 mg/dL (0.7-1.3) Estimated GFR (Cockcroft-Gault) 4.6 Glucose Level 201 mg/dL (70-99) Calcium Level 8.5 mg/dL (8.5-10.1) Test 03/18/19 11:55 03/18/19 16:55 03/18/19 20:40 03/19/19 07:51 Glucose (Fingerstick) 140 mg/dL (70-99) 115 mg/dL (70-99) 163 mg/dL (70-99) 153 mg/dL (70-99) Test 03/19/19 08:51 03/19/19 12:02 03/19/19 13:45 Glucose (Fingerstick) 133 mg/dL (70-99) 147 mg/dL (70-99) White Blood Count 9.2 x10^3/uL (4.0-11.0) Red Blood Count 2.10 x10^6/uL (4.30-5.70) Hemoglobin 7.6 g/dL (13.0-17.5) Hematocrit 22.6 % (39.0-53.0) Mean Corpuscular Volume 108 fL (79-100) Mean Corpuscular Hemoglobin 36 pg (25-35) Mean Corpuscular Hemoglobin Concent 34 g/dL (31-37) Red Cell Distribution Width 21.1 % (11.5-14.5) Platelet Count 137 x10^3/uL (140-400) Sodium Level 134 mmol/L (136-145) Potassium Level 5.0 mmol/L (3.5-5.1) Chloride Level 95 mmol/L (98-107) Carbon Dioxide Level 27 mmol/L (21-32) Anion Gap 12 (6-14) Blood Urea Nitrogen 82 mg/dL (8-26) Creatinine 11.2 mg/dL (0.7-1.3) Estimated GFR (Cockcroft-Gault) 4.6 Glucose Level 184 mg/dL (70-99) Calcium Level 8.2 mg/dL (8.5-10.1) Iron Level 29 ug/dL (65-175) Total Iron Binding Capacity 156 ug/dL (250-450) Iron Saturation 19 % (15-34) Laboratory Tests Test 03/18/19 16:55 03/18/19 20:40 03/19/19 07:51 03/19/19 08:51 Glucose (Fingerstick) 115 mg/dL (70-99) 163 mg/dL (70-99) 153 mg/dL (70-99) 133 mg/dL (70-99) Test 03/19/19 12:02 03/19/19 13:45 Glucose (Fingerstick) 147 mg/dL (70-99) White Blood Count 9.2 x10^3/uL (4.0-11.0) Red Blood Count 2.10 x10^6/uL (4.30-5.70) Hemoglobin 7.6 g/dL (13.0-17.5) Hematocrit 22.6 % (39.0-53.0) Mean Corpuscular Volume 108 fL (79-100) Mean Corpuscular Hemoglobin 36 pg (25-35) Mean Corpuscular Hemoglobin Concent 34 g/dL (31-37) Red Cell Distribution Width 21.1 % (11.5-14.5) Platelet Count 137 x10^3/uL (140-400) Sodium Level 134 mmol/L (136-145) Potassium Level 5.0 mmol/L (3.5-5.1) Chloride Level 95 mmol/L (98-107) Carbon Dioxide Level 27 mmol/L (21-32) Anion Gap 12 (6-14) Blood Urea Nitrogen 82 mg/dL (8-26) Creatinine 11.2 mg/dL (0.7-1.3) Estimated GFR (Cockcroft-Gault) 4.6 Glucose Level 184 mg/dL (70-99) Calcium Level 8.2 mg/dL (8.5-10.1) Iron Level 29 ug/dL (65-175) Total Iron Binding Capacity 156 ug/dL (250-450) Iron Saturation 19 % (15-34) Brief Hospital Course Mr Lewis is a 63 yo M w/ PMHx DM2, HTN, CAD, PAD s/p RLE BKA, now admitted for LLE PAD and gangrene s/p BKA 03/17/19. Hb noted at 7.6 this morning, up from 7.4 yesterday. Wants his own insulin administered in house and would not like hydrocodone or oxycodone for pain. Right leg PAD s/p BKA on 03/17/19 PAD with prior L BKA DM2, CAD, HTN ESRD on PD Anemia, acute Greater than 30 minutes spent on discharge Discharge Information Condition at Discharge: Improved Follow Up: Weeks Disposition/Orders: D/C to Another Facility Scheduled Allopurinol (Allopurinol) 100 Mg Tablet, 1 TAB PO DAILY, #90 Ref 3 (Reported) Entered as Reported by: RUFINO MONTEZ on 05/13/17 0819 Last Action: Continued on 03/16/19 1026 by AJIT BARROW Ascorbic Acid (Vitamin C) 500 Mg Tablet, 500 MG PO DAILY for wound ehaling, #30 Prescribed by: CHERELLE ABBOTT on 02/26/19 1124 Last Action: Continued on 03/16/19 1026 by AJIT BARROW Atorvastatin Calcium (Atorvastatin Calcium) 10 Mg Tablet, 10 MG PO HS for FOR CHOLESTEROL, #30 Ref 0 (Reported) Entered as Reported by: RUFINO MONTEZ on 03/15/19 1703 Last Action: Continued on 03/16/19 1026 by AJIT BARROW Calcium Acetate (Calcium Acetate) 667 Mg Tablet, 1,334 MG PO TIDWMEALS for DIALYSIS PATIENTS, (Reported) Entered as Reported by: BAUTISTA MCKINLEY on 07/01/17 1308 Last Action: Converted on 03/16/19 1026 by AJIT BARROW Carvedilol (Carvedilol ) 3.125 Mg Tablet, 3.125 MG PO BIDWMEALS for htn, #60 Prescribed by: CHERELLE ABBOTT on 02/26/19 1124 Last Taken: Unknown Dose on 03/15/19 1700 Last Action: Continued on 03/16/19 1026 by AJIT BARROW Cholecalciferol (Vitamin D3) (Vitamin D3) 1,000 Unit Tablet, 1 TAB PO DAILY, #30 Ref 5 (Reported) Entered as Reported by: BAUTISTA MCKINLEY on 07/01/17 1309 Last Action: Continued on 03/16/19 1026 by AJIT BARROW Dextran 70/Hypromellose (Artificial Tears Eye Drops) 15 Ml Drops, 1 ML OP BID for DRY EYES, (Reported) Entered as Reported by: RUFINO MONTEZ on 02/22/19 1056 Last Action: Converted on 03/16/19 1026 by AJIT BARROW Docusate Sodium (Colace) 100 Mg Capsule, 100 MG PO DAILY for PREVENT CONSTIPATI ON, (Reported) Entered as Reported by: RUFINO MONTEZ on 03/15/191702 Last Action: Continued on 03/16/19 1026 by AJIT BARROW Famotidine (Famotidine) 20 Mg Tablet, 20 MG PO DAILY for PREVENT REFLUX, (Reported) Entered as Reported by: RUFINO MONTEZ on 03/15/191702 Last Action: Continued on 03/16/19 1026 by AJIT BARROW Ferrous Sulfate (Ferrous Sulfate) 325 Mg Tablet, 325 MG PO TID for ANEMIA, (Reported) Entered as Reported by: RUFINO MONTEZ on 03/15/19 170 Last Action: Continued on 03/16/19 1026 by AJIT BARROW Folic Acid/Vitamin B Comp W-C (Richelle-Harsha Tablet) 0.8 Mg Tablet, 0.8 MG PO DAILY for SUPPLEMENT, (Reported) Entered as Reported by: RUFINO MONTEZ on 02/22/19 1056 Last Action: Continued on 03/16/19 1026 by AJIT BARROW Furosemide (Furosemide) 80 Mg Tablet, 80 MG PO BID, (Reported) Entered as Reported by: BAUTISTA MCKINLEY on 07/01/17 1305 Last Action: Continued on 03/16/19 1026 by AJIT BARROW Heparin Sodium,Porcine (Heparin Sodium) 5,000 Unit/1 Ml Cartridge, 5,000 UNIT SQ Q12HR for PREVENT BLOOD CLOTS, (Reported) Entered as Reported by: RUFINO MONTEZ on 03/15/19 170 Last Taken: Unknown Dose on 03/15/19 1700 Last Action: HELD on 03/18/19 1437 by CLARKE ALANIZ MD Insulin Detemir (Levemir) 100 Unit/1 Ml Vial, 20 UNIT SQ HS, (Reported) Entered as Reported by: BAUTISTA MCKINLEY on 05/12/17 1548 Last Action: Converted on 03/16/19 1026 by AJIT BARROW Lactobacillus Acidophilus (Digestive Probiotic) 1 Each Capsule, 2 EACH PO BID for COLON HEALTH, (Reported) Entered as Reported by: RUFINO MONTEZ on 03/15/19 1703 Last Action: Converted on 03/16/19 1026 by AJIT BARROW Meropenem (Meropenem) 500 Mg Vial, 1,000 MG IV DAILY for INFECTION, (Reported) Entered as Reported by: RUFINO MONTEZ on 02/22/19 1056 Last Action: Converted on 03/16/19 1026 by AJIT BARROW Potassium Chloride (Potassium Chloride) 20 Meq Tablet.er, 20 MEQ PO BID, (Reported) Entered as Reported by: BAUTISTA MCKINLEY on 07/01/17 1309 Last Action: Converted on 03/16/19 1026 by AJIT BARROW Sevelamer Carbonate (Renvela) 800 Mg Tablet, 800 MG PO TIDWMEALS for PHOSPHATE BINDER, (Reported) Entered as Reported by: RUFINO MONTEZ on 03/15/19 1703 Last Action: Continued on 03/16/19 1026 by AJIT BARROW Tamsulosin Hcl (Tamsulosin Hcl) 0.4 Mg Cap.er.24h, 1 CAP PO DAILY, #30 Ref 5 (Reported) Entered as Reported by: CAMERON WALSH on 05/26/17 1324 Last Action: Continued on 03/16/19 1026 by AJIT BARROW Scheduled PRN Acetaminophen (Tylenol) 325 Mg Tablet, 325 MG PO PRN 3-4XDAILY PRN for PAIN, (Reported) Entered as Reported by: RUFINO MONTEZ on 02/22/19 1056 Last Action: HELD on 03/18/191436 by CLARKE ALANIZ MD Diphenhydramine Hcl (Benadryl) 25 Mg Capsule, 25 MG PO PRN BID PRN for ITCHING, (Reported) Entered as Reported by: RUFINO MONTEZ on 03/15/191702 Last Action: Continued on 03/16/19 1026 by AJIT BARROW Hydrocodone Bit/Acetaminophen (Hydrocodone-Apap 5-325 ) 1 Tab Tablet, 2 TAB PO PRN Q4HRS PRN for MODERATE PAIN, SEVERE PAIN, #30 Prescribed by: CHERELLE ABBOTT on 02/26/19 112 Last Action: HELD on 03/18/191436 by CLARKE ALANIZ MD Insulin Aspart (Novolog) 100 Unit/1 Ml Cartridge, 0 SQ PRN BFRMEAL PRN for BLOOD SUGAR CONTROL, (Reported) Entered as Reported by: RUFINO MONTEZ on 02/22/19 105 Last Action: Converted on 03/18/191436 by CLARKE ALANIZ MD Ondansetron (Ondansetron Odt) 4 Mg Tab.rapdis, 4 MG PO BID PRN for NAUSEA/VOMITING, (Reported) Entered as Reported by: RUFINO MONTEZ on 03/15/191702 Last Action: Continued on 03/16/19 1026 by AJIT BARROW Polyethylene Glycol 3350 (Polyethylene Glycol 3350) 2,500 Gm Powder, 2,500 GM MC PRN DAILY PRN for CONSTIPATION, (Reported) Entered as Reported by: RUFINO MONTEZ on 03/15/191702 Last Action: Converted on 03/16/19 1026 by AJIT BARROW Zolpidem Tartrate (Ambien) 5 Mg Tablet, 5 MG PO PRN QHS PRN for INSOMNIA, #20 Prescribed by: CHERELLE ABBOTT on 02/26/19 1124 Last Action: Continued on 03/16/19 1026 by AJIT BARROW Discontinued Medications Clonidine Hcl (Clonidine Hcl) 0.2 Mg Tablet, 1 TAB PO PRN, #60 Ref 5 (Reported) TAKES ONLY IF HIS BLOOD PRESSURE IS ELEVATED Entered as Reported by: BAUTISTA MCKINLEY on 05/12/17 1559 Last Action: Discontinued on 03/15/191701 by RUFINO MONTEZ Darbepoetin Fredi In Polysorbat (Aranesp Syringe) 60 Mcg/0.3 Ml Disp.syrin, 60 MCG SQ WEEKLY for TO TREAT ANEMIA, Ref 0 (Reported) Entered as Reported by: RUFINO MONTEZ on 05/13/17 0819 Last Action: Discontinued on 03/15/191701 by RUFINO MONTEZ Pantoprazole Sodium (Protonix) 20 Mg Tablet.dr, 40 MG PO DAILY for REFLUX CONTROL, (Reported) Entered as Reported by: RUFINO MONTEZ on 02/22/191055 Last Action: Discontinued on 03/15/191701 by RUFINO MONTEZ Pravastatin Sodium (Pravastatin Sodium) 10 Mg Tablet, 1 TAB PO QHS, #90 Ref 3 (Reported) Entered as Reported by: BAUTISTA MCKINLEY on 07/01/17 1301 Last Action: Discontinued on 03/15/191701 by RUFINO MONTEZ [Dakins 0.125%] , 1 MACKENZIE TOP BID, (Reported) Entered as Reported by: RUFINO MONTEZ on 02/22/191055 Last Action: Discontinued on 03/15/191701 by CLARKE DERAS MD Mar 19, 2019 14:52
[2019-03-19 15:25] VITALS: BP 124/61
--- NOTE | 2019-03-19 15:27 | NUR ---
SS following up with discharge planning. Discharge orders received for [facility], ; fax [phone]. SS phoned and faxed discharge orders to [facility]. Pt will discharge today and return to [facility] at 1630 via [facility] ambulance. Pt, pt's family, and pt's RN notified.
[2019-03-19 16:44] VITALS: BP 124/61
--- NOTE | 2019-03-19 17:06 | PATHOLOGY ---
[facility] Accession Number: [id number] . 01 Material submitted: . knee - RIGHT BELOW KNEE. Modifiers: right . 01 Clinical history: . Right foot gangrene . 02 Diagnosis: Right leg below knee amputation: - Status post previous right foot transmetatarsal amputation. - Focal gangrenous necrosis, ulceration, and extensive acute cellulitis of amputation site. - Skin, subcutaneous tissue, skeletal muscle tissue, and bone of proximal amputation margin viable. - Extensive calcification of anterior and posterior tibial arteries. (JPM/db; 03/19/2019) LBQ/03/19/2019 . 02 Electronically signed: . Bakari Pino MD, Pathologist NPI- [id number] . 01 Gross description: . The specimen is received in a red Des[employer] bag, labeled," Manny Lewis, right below knee", is a below the knee amputation of the right leg measuring 15.0 cm from distal tip of big toe to heel, 33.0 cm from heel to proximal skin resection margin. Extending above the proximal skin resection margin are two segment of bones: Tibia measuring 4.5 cm in length by 4.0 x 2.8 cm and fibula measuring 2.0 cm in length by 1.7 x 1.0 cm. The forefoot is previously amputated. The skin, soft tissue, and bone at the margin appear viable. The artery at the margin is patent. The forefoot amputation site is magana-white and necrotic and measures 7.0 x 3.5 cm. There is a 2.5 x 2.0 cm healing ulcer 4.8 cm lateral to the previous amputation site. Sectioning through the necrotic previous amputation site shows possible extension of necrosis to the underling bone. The arteries show possible intimal thickening. No venous thrombi are identified. Sections containing bone are submitted after decalcification. Representatively submitted as follows: A1. Proximal margin, skin and underlying soft tissue. A2. Proximal margin, Tibia and Fibula. (Fibula inked blue) A3. Proximal margin, vessels. A4. Previous amputation site to underlying bone and skin and lateral ulcer. A5. Vessels, Anterior and posterior (anterior inked blue) ([facility]; 03/17/2019) [facility] . 02 Pathologist provided ICD-10: I70.261 . 02 CPT . 978757, [id number] Specimen Comment: A courtesy copy of this report has been sent to Specimen Comment: [phone], . Specimen Comment: Report sent to / DR PEREZ Performed at: 01 [facility] [address], [place] [id number] MD Nazario Jones MD Phone: [phone] Performed at: 02 [facility] [address] [place], [place] [id number] MD Bakari Pino MD Phone: [phone]
--- NOTE | 2019-03-19 17:20 | NUR ---
Pt discharging to [facility]. Called and gave report to David. Pictures of coccyx taken and dressing was changed. All belongings were packed and taken with him. [facility]
== END 2019-03-19 17:00 | DRG 239 ==
LOC: SURG 07:40 → 6 SOUTH 12:26 → 4 NORTH 03-17 10:36
PROVIDERS: ADMIT Internal Medicine; ATTEND Surgery Vascular Surgery
PROC: 0Y6H0Z1 Detachment at Right Lower Leg, High, Open Approach (ICD-10-PCS; principal; 2019-03-16 09:30)
DX: E11.52 Type 2 diabetes mellitus with diabetic peripheral angiopathy with gangrene (principal); N18.6 End stage renal disease; I12.0 Hypertensive chronic kidney disease with stage 5 chronic kidney disease or end stage renal disease; I70.261 Atherosclerosis of native arteries of extremities with gangrene, right leg; I25.10 Atherosclerotic heart disease of native coronary artery without angina pectoris; E11.22 Type 2 diabetes mellitus with diabetic chronic kidney disease; E78.5 Hyperlipidemia, unspecified; E66.9 Obesity, unspecified; D63.1 Anemia in chronic kidney disease; Z89.512 Acquired absence of left leg below knee; Z95.1 Presence of aortocoronary bypass graft; Z79.4 Long term (current) use of insulin; Z82.49 Family history of ischemic heart disease and other diseases of the circulatory system; Z88.0 Allergy status to penicillin; Z99.2 Dependence on renal dialysis; Z68.29 Body mass index [BMI] 29.0-29.9, adult; Z88.8 Allergy status to other drugs, medicaments and biological substances; Z88.1 Allergy status to other antibiotic agents; Z91.040 Latex allergy status
CPT/HCPCS: 36415; 80048; 82962; 83540; 83550; 85007; 85025; 85027; 85610; 85730; 86850; 86900; 86901; 88307; 88311; A7015; J0171; J0696; J0882; J1100; J1170; J1815; J2001; J2185; J2370; J2405; J2704; J3010; J3490; J7030; J7040

== ENCOUNTER 2019-04-16 10:27 | Outpatient (CLI) | payer MEDICARE ==
[~2019-04-16] VITALS: Ht 182.9 cm; Wt 97.5 kg
[~2019-04-16 10:27] MED LIST changes: -BACITRACIN 50,000 UNIT in IV NORMAL SALINE 500ML BAG 500 ML IRR ONE; -IV RINGERS,LACTATED 1000ML 1,000 ML IV SCH; -LIDOCAINE 1% PF 2 ML VIAL. ID PRN; -MORPHINE SULFATE 2 MG/ML VIAL. IV PRN; -ONDANSETRON PF 4 MG/2 ML VIAL. IV PRN; -PROCHLORPERAZINE 10 MG/2 ML VIAL. IV PRN; -fentaNYL PF VIAL 100 MCG/2 ML VIAL IV PRN
[2019-04-16 10:53] VITALS: BP 109/68
[2019-04-16] MEDS ORDERED: LIDOCAINE WITH 8.4% SOD BICARB 3 ML DISP.SYRIN. INJ ONE (11:30)
--- NOTE | 2019-04-16 12:06 | NUR ---
pt discharged to rehab facility with driver guard. discharge instructions reviewed.
--- NOTE | 2019-04-16 15:17 | RAD ---
Procedure: Removal of Tunneled central venous catheter 04/16/2019 3:13 PM Clinical Indication: NO LONGER NEEDED Discussion: The risks and benefits of the procedure were discussed the patient and/or their apprenticeship training representative. Informed consent was obtained. A timeout procedure was performed. All elements of maximal sterile barrier technique including the use of a cap, mask, sterile gown, sterile gloves, large sterile sheet, appropriate hand hygiene, and 2% chlorhexidine for cutaneous antisepsis (or acceptable alternative antiseptic per current guidelines) were followed for this procedure. The patient was prepped and draped in the usual sterile fashion. 1% lidocaine was administered for local anesthesia. Using minimal blunt dissection the subcutaneous cuff was freed. The catheter was removed intact. Complete removal was confirmed by inspection, as well as fluoroscopy. Reference images were saved to the medical record. Manual pressure was held for hemostasis. Sterile dressings were applied. No immediate complications were identified. Fluoroscopy Time: 0.1 min DAP: 1 gycm2 Anesthesia: Local only Impression: Removal of tunneled central venous catheter
== END 2019-04-16 12:09 | disposition home or self-care (01) ==
LOC: INTRAD 10:27
DX: Z45.2 Encounter for adjustment and management of vascular access device (principal)
CPT/HCPCS: 36589; 77001

== ENCOUNTER 2020-02-07 17:16 | Emergency (ER) | payer MEDICARE, OTHER ==
[~2020-02-07] VITALS: Ht 182.9 cm; Wt 95.4 kg
[~2020-02-07 17:16] MED LIST changes: -ASCO500T2 PO; +ASCO500T4 PO; +ASPI-630 PO; +CEPH250C PO; +HYDR25CA75 PO; +LOPE-101 PO; -LOPE2CAP88 PO; -MERO500V15 IV; +MERO500V24 IV; +METO5TAB4 PO; -OMEP20CA10 PO; +OMEP20CA16 PO; +ONDA-84 IVP; -ONDA4TAB11 IVP; +POTA20TA4 PO; -POTA20TA82 PO
[2020-02-07 18:07] LABS: BASO # 0.1 x10^3/uL (0.0-0.2); BASO % 1 % (0-3); EOS # 0.5 x10^3/uL (0.0-0.7); EOS % 5 % (0-3); HEMATOCRIT 34.5 % (39.0-53.0); HEMOGLOBIN 11.7 g/dL (13.0-17.5); LYMPH # 0.5 x10^3/uL (1.0-4.8); LYMPH % 5 % (24-48); MEAN CORPUSCULAR HEMOGLOBIN 37 pg (25-35); MEAN CORPUSCULAR HGB CONC 34 g/dL (31-37); MEAN CORPUSCULAR VOLUME 109 fL (79-100); MONO # 0.8 x10^3/uL (0.0-1.1); MONO % 8 % (0-9); NEUT # 8.3 x10^3/uL (1.8-7.7); NEUT % 82 % (31-73); PLATELET COUNT 117 x10^3/uL (140-400); RED BLOOD COUNT 3.15 x10^6/uL (4.30-5.70); RED CELL DISTRIBUTION WIDTH 17.3 % (11.5-14.5); WHITE BLOOD COUNT 10.1 x10^3/uL (4.0-11.0)
[2020-02-07 18:14] LABS: CALCIUM 8.8 mg/dL (8.5-10.1); CREATININE 8.9 mg/dL (0.7-1.3)
[2020-02-07 18:20] LABS: ALBUMIN 2.7 g/dL (3.4-5.0); ALBUMIN/GLOBULIN RATIO 0.8 (1.0-1.7); TOTAL BILIRUBIN 0.3 mg/dL (0.2-1.0); TOTAL PROTEIN 6.3 g/dL (6.4-8.2)
[2020-02-07 18:21] LABS: POTASSIUM 4.4 mmol/L (3.5-5.1)
[2020-02-07] MEDS ORDERED: IOHEXOL 300 MG/ML 100ML VIAL. IV ONE (18:30)
[2020-02-07] MEDS ORDERED: CONTRAST GIVEN. MC PRN (18:45)
[2020-02-07 18:53] LABS: % BANDS 3 % (0-9); % EOS 3 % (0-5); % LYMPHS 6 % (24-48); % MONOS 5 % (0-10); % SEGS 83 % (35-66); PLT ESTIMATE DECREASED (ADEQUATE)
--- NOTE | 2020-02-07 19:13 | RAD ---
NECK SOFT TISSUE History:Reason: L facial/neck tenderness and knot / Spl. Instructions: / History: Comparison: None Technique: Sonographic examination of the left face/neck. Findings: Targeted ultrasound of the left neck and submandibular region. Small lymph nodes within the region the patient's palpable concern measures 1.4 cm. No fluid collection. Impression: 1. Small benign-appearing lymph node within the region of the patient's palpable concern. If persistent clinical concern and interval growth, recommend ultrasound follow-up. Electronically signed by: Davey Mathew DO (02/07/2020 7:10 PM) [facility]
--- NOTE | 2020-02-07 19:19 | RAD ---
EXAM: Head CT without contrast. HISTORY: Left-sided neck pain. TECHNIQUE: Computed tomographic images of the head were obtained without contrast. *One or more of the following individualized dose reduction techniques were utilized for this examination: 1. Automated exposure control. 2. Adjustment of the mA and/or kV according to patient size. 3. Use of iterative reconstruction technique. COMPARISON: None. FINDINGS: There is no hemorrhage. There is no mass effect or midline shift. There is moderate ventricular enlargement. This slightly greater than expected for the degree of cerebral volume loss. There are subtle areas of hypodensity within the cerebral white matter, likely due to chronic small vessel disease. There may be a tiny focus of encephalomalacia due to chronic infarction within the right cerebellum. There is evidence of lens surgery. There is severe right maxillary sinus and mild bilateral ethmoid sinus mucosal thickening. There is right maxillary sinus wall thickening due to chronic sinusitis. The mastoid air cells are clear. There is calcified atherosclerotic plaque within the visualized vessels. IMPRESSION: 1. Moderate ventricular enlargement. This is slightly greater than expected for the degree of cerebral volume loss. The possibility of a component of normal pressure hydrocephalus is not excluded. 2. Mild bilateral cerebral white matter changes, likely due to chronic small vessel disease. 3. Chronic right maxillary sinus disease. Electronically signed by: Ailyn Rai MD (02/07/2020 7:16 PM) [facility]
--- NOTE | 2020-02-07 20:04 | PHYS DOC ---
Past Medical History Past Medical History: CAD, CHF, Diabetes-Type II, Hypertension, Renal Disease, Renal Failure Additional Past Medical Histor: peritoneal dialysis Past Surgical History: Coronary Bypass Surgery Additional Past Surgical Histo: back surgery, toe amputation, BILATERAL BKA Smoking Status: Never Smoker Alcohol Use: None Drug Use: None General Adult EDM: Chief Complaint: OTHER COMPLAINTS HPI: HPI: Patient is a 64 year old male, accompanied by his , who presents to the emergency department with complaints of left-sided neck pain, headache, and an episode of seeing bright flashes of light in both of his eyes. Patient reported that 3 weeks ago he had felt a pop in his neck when he was trying to reposition himself in bed and he has had the pain in his head and neck since that time. He has been evaluated received a previous CT scan that was negative, he was encouraged to go to the chiropractor for treatment after the negative CT. Patient states he has been going to the chiropractor with no improvement in his headaches but now he has a lump under the left side of his jaw. He currently denies any vision changes fever, cough, shortness of breath, chest pain, palpitations, ear pain, decreased hearing, abdominal pain, nausea, vomiting, diarrhea, fatigue, or weakness. He reports that he has been taking cephalexin for the last 2 days after his primary care doctor called in an antibiotic for what was believed to be an enlarged lymph node in his neck. Patient denies any problems swallowing or difficulty breathing. He currently rates his discomfort a 6 out of 10 on the pain scale, he denies any alleviating or exacerbating factors. Patient states he is tried taking Tylenol at home with no relief of his symptoms. Review of Systems: Review of Systems: Constitutional: Denies fever or chills. [] Eyes: Denies change in visual acuity at this time, See HPI [] HENT: Denies nasal congestion or sore throat. [] Respiratory: Denies cough or shortness of breath. [] Cardiovascular: Denies chest pain or edema. [] GI: Denies abdominal pain, nausea, vomiting, or diarrhea. [] : Denies dysuria. [] Musculoskeletal: Denies back pain or joint pain. [] Integument: Denies rash. [] Neurologic: Denies headache, dizziness, focal weakness, or sensory changes. [] Endocrine: Denies polyuria or polydipsia. [] Lymphatic: See HPI Psychiatric: Denies depression or anxiety. [] Heart Score: Risk Factors: Risk Factors: DM, Current or recent (<one month) smoker, HTN, HLP, family history of CAD, obesity. Risk Scores: Score 0 - 3: 2.5% MACE over next 6 weeks - Discharge Home Score 4 - 6: 20.3% MACE over next 6 weeks - Admit for Clinical Observation Score 7 - 10: 72.7% MACE over next 6 weeks - Early Invasive Strategies Current Medications: Current Medications Medications (Trade) Dose Ordered Sig/Murali Start Time Stop Time Status Last Admin Dose Admin Info (CONTRAST GIVEN -- Rx MONITORING) 1 each PRN DAILY PRN 02/07/20 18:45 02/09/20 18:44 Iohexol (Omnipaque 300 Mg/ml) 60 ml 1X ONCE 02/07/20 18:30 02/07/20 18:31 DC Allergies: Allergies: Allergies Coded Allergies Type Severity Reaction Last Updated Verified Penicillins Allergy Severe HIVES AND ITCHING. 03/16/19 Yes zinc Allergy Severe HIVES AND ITCHING 03/16/19 Yes Latex, Natural Rubber Allergy Intermediate FOREMAN AND IRRITATES SKIN 03/16/19 Yes adhesive Allergy Intermediate FOREMAN AND IRRITATES SKIN 03/16/19 Yes amlodipine Allergy Intermediate 03/16/19 Yes capsaicin Allergy Intermediate 03/16/19 Yes clindamycin Allergy Intermediate 04/28/19 Yes hydrocodone Allergy Intermediate Anxiety 03/16/19 Yes insulin glargine Allergy Intermediate 03/16/19 Yes oxycodone Allergy Intermediate Anxiety 03/16/19 Yes Physical Exam: PE: Constitutional: Well developed, well nourished, no acute distress, non-toxic appearance. [] HENT: Normocephalic, atraumatic, bilateral external ears normal, oropharynx moist, no oral exudates, nose normal. [] Eyes: PERRLA, EOMI, conjunctiva normal, no discharge. [] Neck: Normal range of motion, no bony tenderness, supple, no stridor; palpable, movable, soft, tender area noted to left lateral neck concerning for enlarged cervical lymph node [] Cardiovascular:Heart rate regular rhythm Lungs & Thorax: Respirations even and unlabored, no retractions, no respiratory distress Skin: Warm, dry, no erythema, no rash. [] Back: No tenderness Extremities: No cyanosis, ROM intact, no edema, bilat BKA. [] Neurologic: Alert and oriented X 3, normal motor function, normal sensory function, no focal deficits noted. [] Psychologic: Affect normal, judgement normal, mood normal. [] Current Patient Data: Labs: Laboratory Tests Test 02/07/20 17:42 White Blood Count 10.1 x10^3/uL (4.0-11.0) Red Blood Count 3.15 x10^6/uL (4.30-5.70) L Hemoglobin 11.7 g/dL (13.0-17.5) L Hematocrit 34.5 % (39.0-53.0) L Mean Corpuscular Volume 109 fL (79-100) H Mean Corpuscular Hemoglobin 37 pg (25-35) H Mean Corpuscular Hemoglobin Concent 34 g/dL (31-37) Red Cell Distribution Width 17.3 % (11.5-14.5) H Platelet Count 117 x10^3/uL (140-400) L Neutrophils (%) (Auto) 82 % (31-73) H Lymphocytes (%) (Auto) 5 % (24-48) L Monocytes (%) (Auto) 8 % (0-9) Eosinophils (%) (Auto) 5 % (0-3) H Basophils (%) (Auto) 1 % (0-3) Neutrophils # (Auto) 8.3 x10^3/uL (1.8-7.7) H Lymphocytes # (Auto) 0.5 x10^3/uL (1.0-4.8) L Monocytes # (Auto) 0.8 x10^3/uL (0.0-1.1) Eosinophils # (Auto) 0.5 x10^3/uL (0.0-0.7) Basophils # (Auto) 0.1 x10^3/uL (0.0-0.2) Segmented Neutrophils % 83 % (35-66) H Band Neutrophils % 3 % (0-9) Lymphocytes % 6 % (24-48) L Monocytes % 5 % (0-10) Eosinophils % 3 % (0-5) Platelet Estimate Decreased (ADEQUATE) Sodium Level 137 mmol/L (136-145) Potassium Level 4.4 mmol/L (3.5-5.1) Chloride Level 95 mmol/L (98-107) L Carbon Dioxide Level 23 mmol/L (21-32) Anion Gap 19 (6-14) H Blood Urea Nitrogen 74 mg/dL (8-26) H Creatinine 8.9 mg/dL (0.7-1.3) H Estimated GFR (Cockcroft-Gault) 6.0 BUN/Creatinine Ratio 8 (6-20) Glucose Level 150 mg/dL (70-99) H Calcium Level 8.8 mg/dL (8.5-10.1) Total Bilirubin 0.3 mg/dL (0.2-1.0) Aspartate Amino Transferase (AST) 33 U/L (15-37) Alanine Aminotransferase (ALT) 33 U/L (16-63) Alkaline Phosphatase 178 U/L (46-116) H Total Protein 6.3 g/dL (6.4-8.2) L Albumin 2.7 g/dL (3.4-5.0) L Albumin/Globulin Ratio 0.8 (1.0-1.7) L Laboratory Tests 02/07/20 17:42 Laboratory Tests 02/07/20 17:42 Vital Signs: Vital Signs Date Time Temp Pulse Resp B/P (MAP) Pulse Ox O2 Delivery O2 Flow Rate FiO2 02/07/20 18:51 72 20 150/74 (99) 98 Room Air 02/07/20 17:49 98.2 98.2 EKG: EK LBBB, rate 68, nonspecific intraventricular block, no STEMI, read by Dr. Richards. [] Radiology/Procedures: Radiology/Procedures: PROCEDURE: CT HEAD WO CONTRAST EXAM: Head CT without contrast. HISTORY: Left-sided neck pain. TECHNIQUE: Computed tomographic images of the head were obtained without contrast. *One or more of the following individualized dose reduction techniques were utilized for this examination: 1. Automated exposure control. 2. Adjustment of the mA and/or kV according to patient size. 3. Use of iterative reconstruction technique. COMPARISON: None. FINDINGS: There is no hemorrhage. There is no mass effect or midline shift. There is moderate ventricular enlargement. This slightly greater than expected for the degree of cerebral volume loss. There are subtle areas of hypodensity within the cerebral white matter, likely due to chronic small vessel disease. There may be a tiny focus of encephalomalacia due to chronic infarction within the right cerebellum. There is evidence of lens surgery. There is severe right maxillary sinus and mild bilateral ethmoid sinus mucosal thickening. There is right maxillary sinus wall thickening due to chronic sinusitis. The mastoid air cells are clear. There is calcified atherosclerotic plaque within the visualized vessels. IMPRESSION: 1. Moderate ventricular enlargement. This is slightly greater than expected for the degree of cerebral volume loss. The possibility of a component of normal pressure hydrocephalus is not excluded. 2. Mild bilateral cerebral white matter changes, likely due to chronic small vessel disease. 3. Chronic right maxillary sinus disease. PROCEDURE: NECK SOFT TISSUE NECK SOFT TISSUE History:Reason: L facial/neck tenderness and knot / Spl. Instructions: / History: Comparison: None Technique: Sonographic examination of the left face/neck. Findings: Targeted ultrasound of the left neck and submandibular region. Small lymph nodes within the region the patient's palpable concern measures 1.4 cm. No fluid collection. Impression: 1. Small benign-appearing lymph node within the region of the patient's palpable concern. If persistent clinical concern and interval growth, recommend ultrasound follow-up. PROCEDURE: CT ANGIOGRAPHY HEAD AND NECK CT ANGIOGRAPHY HEAD AND NECK History:Reason: seeing flashes of light / Spl. Instructions: / History: Technique: After bolus of intravenous contrast, volumetric CT data acquisition was acquired of the head and neck. Multiplanar reconstruction images to include MIP and 3-D reconstruction images are submitted. Examination was performed at separate time from the noncontrast head CT from the same day. Exposure: One or more of the following individualized dose reduction techniques were utilized for this examination: 1. Automated exposure control 2. Adjustment of the mA and/or kV according to patient size 3. Use of iterative reconstruction technique. Comparison: Noncontrast head CT February 07, 2020 Any determination of stenosis is based on NASCET criteria. Head CTA: ICA: Extensive atheromatous calcification within the bilateral carotid siphon. Moderate multifocal narrowing of the right greater than left internal carotid artery. MCA: No stenosis, occlusion or aneurysm. [place]: No stenosis, occlusion or aneurysm. ACID CONCENTRATOR: No stenosis, occlusion or aneurysm. origin of the right posterior cerebral artery. Basilar artery: No stenosis, occlusion or aneurysm. Distal vertebral arteries: Extensive calcination of the distal vertebral arteries with moderate narrowing. Prominent lateral ventricles, unchanged. Right maxillary sinus partial opacification with secretions and mucosal thickening. Increased sclerosis of the right maxillary sinus wall, may indicate chronic osteitis. Mastoid air cells are clear. CT angiogram neck: Examination degraded due to contrast bolus timing. Aortic arch: Mild atheromatous plaque within the aortic arch. Common carotid arteries: No stenosis, occlusion or dissection. Mild atheromatous plaque. Internal carotid arteries: Moderate bilateral carotid bifurcation plaque, left greater than right. Approximately 50 percent narrowing of the left internal carotid artery origin. Less than 50 percent narrowing of the right internal carotid artery origin. External carotid arteries: Patent Vertebral arteries: Significantly degraded evaluation due to contrast bolus timing. Distal vertebral arteries appear patent and heavily calcified. Imaged lung apices are unremarkable. Soft tissues appear normal. Bones: Multilevel cervical spondylosis. C1-C2 degenerative changes with posterior pannus formation. Impression: 1. Examination degraded due to contrast bolus timing. 2. Intracranial atheromatous plaque with moderate multifocal narrowing of the internal carotid arteries and distal vertebral arteries. 3. 50 percent narrowing of the left proximal internal carotid artery. [] Course & Med Decision Making: Course & Med Decision Making Pertinent Labs and Imaging studies reviewed. (See chart for details) 2013-I spoke with Dr. Morales about patient's CT head result. Per Dr. Morales ventricle findings are normal. He recommends a CT/angio head and neck of this patient to rule out a dissection. 2144-[id number] discussed the findings of all imaging with patient advised that there is no acute dissection, intracranial bleed, or acute cause of his headache. Advised the patient that I will prescribe Fioricet for headaches. He needs to follow-up with his primary care doctor this week for reevaluation and also see he russet repairer for evaluation of the flashing lights he saw in his eye. As soon as he gets home he needs to perform his peritoneal dialysis because of the contrast that was given with the CT. Patient's vital signs are stable, Patient verbalized an understanding of home care, medications, follow-up, and return to ED instructions and was in agreement with the plan of care. [] Tri Disclaimer: Tri Disclaimer: This electronic medical record was generated, in whole or in part, using a voice recognition dictation system. Departure Departure Impression: Primary Impression: Enlarged lymph node in neck Additional Impression: Headache Qualified Codes: R51 - Headache Disposition: 01 HOME, SELF-CARE Condition: STABLE Referrals: UNKNOWN PCP NAME (PCP) Patient Instructions: General Headache Without Cause, [id number], Lymphangitis, Pediatric Additional Instructions: GO HOME AND DO YOUR PERITONEAL DIALYSIS. Fill the prescription and use as directed for headache. Continue taking the antibiotic as prescribed for your enlarged lymph node. Follow-up with your primary care doctor this week. Return to the ER if symptoms worsen. Scripts Butalb/Acetaminophen/Caffeine ([id number] 50-325-40) 1 Each Tablet 1-2 EACH PO Q4HRS PRN for PAIN MDD 6 tabs for 3 Days, #18 TAB 0 Refills Prov: ADE MOLINA APRN 02/07/20 Justicifation of Admission Dx: Justifications for Admission: Justification of Admission Dx: N/A ADE MOLINA APRN Feb 07, 2020 20:04
--- NOTE | 2020-02-07 21:37 | RAD ---
CT ANGIOGRAPHY HEAD AND NECK History:Reason: seeing flashes of light / Spl. Instructions: / History: Technique: After bolus of intravenous contrast, volumetric CT data acquisition was acquired of the head and neck. Multiplanar reconstruction images to include MIP and 3-D reconstruction images are submitted. Examination was performed at separate time from the noncontrast head CT from the same day. Exposure: One or more of the following individualized dose reduction techniques were utilized for this examination: 1. Automated exposure control 2. Adjustment of the mA and/or kV according to patient size 3. Use of iterative reconstruction technique. Comparison: Noncontrast head CT February 07, 2020 Any determination of stenosis is based on NASCET criteria. Head CTA: ICA: Extensive atheromatous calcification within the bilateral carotid siphon. Moderate multifocal narrowing of the right greater than left internal carotid artery. MCA: No stenosis, occlusion or aneurysm. [place]: No stenosis, occlusion or aneurysm. SERVICE DESK TEAM LEAD: No stenosis, occlusion or aneurysm. origin of the right posterior cerebral artery. Basilar artery: No stenosis, occlusion or aneurysm. Distal vertebral arteries: Extensive calcination of the distal vertebral arteries with moderate narrowing. Prominent lateral ventricles, unchanged. Right maxillary sinus partial opacification with secretions and mucosal thickening. Increased sclerosis of the right maxillary sinus wall, may indicate chronic osteitis. Mastoid air cells are clear. CT angiogram neck: Examination degraded due to contrast bolus timing. Aortic arch: Mild atheromatous plaque within the aortic arch. Common carotid arteries: No stenosis, occlusion or dissection. Mild atheromatous plaque. Internal carotid arteries: Moderate bilateral carotid bifurcation plaque, left greater than right. Approximately 50 percent narrowing of the left internal carotid artery origin. Less than 50 percent narrowing of the right internal carotid artery origin. External carotid arteries: Patent Vertebral arteries: Significantly degraded evaluation due to contrast bolus timing. Distal vertebral arteries appear patent and heavily calcified. Imaged lung apices are unremarkable. Soft tissues appear normal. Bones: Multilevel cervical spondylosis. C1-C2 degenerative changes with posterior pannus formation. Impression: 1. Examination degraded due to contrast bolus timing. 2. Intracranial atheromatous plaque with moderate multifocal narrowing of the internal carotid arteries and distal vertebral arteries. 3. 50 percent narrowing of the left proximal internal carotid artery. Electronically signed by: Davey Mathew DO (02/07/2020 9:35 PM) [facility]
[2020-02-07] MEDS ORDERED: BUTA1TAB23 PO (21:49)
[2020-02-07] MEDS ORDERED: BUTALB/APAP/CAFEIN 50/325/40MG TABLET. PO PRN (22:00)
[2020-02-07 22:01] VITALS: BP 205/65
--- NOTE | 2020-02-08 07:10 | EKG ---
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
== END 2020-02-07 22:13 | disposition home or self-care (01) ==
LOC: ER 17:16
DX: R59.0 Localized enlarged lymph nodes (principal); R51 Headache; M54.2 Cervicalgia; I13.0 Hypertensive heart and chronic kidney disease with heart failure and stage 1 through stage 4 chronic kidney disease, or unspecified chronic kidney disease; E11.22 Type 2 diabetes mellitus with diabetic chronic kidney disease; N18.9 Chronic kidney disease, unspecified; I50.9 Heart failure, unspecified; Z98.890 Other specified postprocedural states; Z88.0 Allergy status to penicillin; Z91.040 Latex allergy status; Z88.8 Allergy status to other drugs, medicaments and biological substances; Z88.6 Allergy status to analgesic agent; Z88.5 Allergy status to narcotic agent; Z88.1 Allergy status to other antibiotic agents
CPT/HCPCS: 36415; 70450; 70496; 70498; 76536; 80053; 85007; 85025; 93005; 99285; Q9967